=== PATIENT | female | born 1955 | race Caucasian/White ===

== ENCOUNTER 2016-06-21 10:38 | Outpatient (CLI) | payer MEDICAID | END 2016-06-21 10:39 | DX: E11.9 Type 2 diabetes mellitus without complications (principal); I10 Essential (primary) hypertension; E78.5 Hyperlipidemia, unspecified ==

== ENCOUNTER 2016-11-29 08:36 | Outpatient (CLI) | payer MEDICAID ==
--- NOTE | 2016-11-30 03:04 | MRI Report ---
EXAM: MRI LUMBAR SPINE WITHOUT CONTRAST EXAM DATE: 11/29/2016 09:08 AM. CLINICAL HISTORY: Low back pain for 4 months radiating to the right lower extremity. History of surge ry in 1994 for a herniated disk. COMPARISON: Lumbar spine radiographs from 08/11/2016. TECHNIQUE: Multiplanar, multisequence T1-weighted and fluid-sensitive sequences of the lumbar spine f rom T12 to S1 without contrast. Other: None. FINDINGS: Spinal Cord: The conus terminates at L1-L2. No signal abnormality in the visualized spinal cord. Alignment: Mild retrolisthesis is noted at L1-L2 and L5-S1 measuring 23 mm. Grade 1 anterolisthesis is noted at L4-L5 measuring 3 mm, stable. Bone Marrow: Five [id number]-ghw-[id number] lumbar vertebral bodies are confirmed on the radiographs. An osseou s hemangioma is noted in the L2 vertebral body. Mild type I Modic endplate changes are also suggested at L2-L3. No additional areas of abnormal bone marrow edema are seen. Disk Levels/Facets: T12-L1: Unremarkable on sagittal images. L1-L2: A mild disk bulge is noted on sagittal images. There is mild spinal canal stenosis without imp ingement of the conus medullaris. The foramina are patent. L2-L3: There is a mild disk bulge with mild bilateral facet arthropathy. However, there is no spinal canal or foraminal stenosis. L3-L4: A small right foraminal protrusion is noted without spinal canal or foraminal stenosis. There is mild bilateral facet arthropathy. L4-L5: Anterolisthesis is noted at this level with uncovering of the disk. Superimposed facet arthrop athy and ligamentum flavum infolding result in moderate spinal canal stenosis. The foramina are paten t. The lateral recesses are narrowed and there may be impingement of the descending left L5 nerve genesis t. L5-S1: A posterior disk osteophyte complex is present, eccentric in the right paracentral region. The re is moderate right and mild left facet arthropathy. This results in mild right foraminal narrowing and mild spinal canal stenosis. There is narrowing of the right lateral recess but no definite imping ement of the descending right S1 nerve root is seen. Musculature: There is mild to moderate diffuse fatty atrophy of the posterior paraspinal muscles with out intramuscular edema. Other: The visualized pelvic cavity is unremarkable. IMPRESSION: 1. Moderate spinal canal stenosis at L4-L5 due to degenerative anterolisthesis, facet arthropathy, an d ligamentum flavum infolding. There is narrowing in the lateral recesses with possible impingement o f the descending left L5 nerve root. 2. Degenerative disk changes and facet arthropathy result in narrowing of the right lateral recess wi th possible impingement of the descending right S1 nerve root. 3. Suggestion of mild type I Modic endplate changes at L2-L3. 4. Mild multilevel degenerative changes at other lumbar levels but without high-grade spinal canal or foraminal stenosis. Comment: The following findings are so common in adults without low back pain that while we report th eir presence, they must be interpreted with caution and in the context of the clinical situation. (Re columba Sheldon et al, Spine 2001) Prevalence of findings in patients without low back pain: Disk degeneration (any evidence): 92% Disk desiccation/T2 signal loss: 83% Disk height loss: 56% Disk bulge: 64% Disk protrusion: 32% Annular tear/high intensity zone: 38% [facility] Referring Provider Line: [phone] SITE ID: [id number]
== END 2016-11-29 08:37 | disposition home or self-care (01) ==
LOC: DI 08:36
PROVIDERS: ATTEND Orthopaedic Surgery
DX: M51.36 Other intervertebral disc degeneration, lumbar region (principal); M43.16 Spondylolisthesis, lumbar region
CPT/HCPCS: 72148

== ENCOUNTER 2017-02-25 08:00 | Outpatient (CLI) | payer MEDICAID ==
[2017-02-25 19:00] LABS: BASOPHILS # (AUTO) 0.1 10^3/uL (0.0-0.1); BASOPHILS % (AUTO) 0.9 %; EOSINOPHILS # (AUTO) 0.1 10^3/uL (0.0-0.7); EOSINOPHILS % (AUTO) 1.5 %; HCT - HEMATOCRIT 40.6 % (37.0-47.0); HGB - HEMOGLOBIN 13.3 g/dL (12.0-16.0); LYMPHOCYTES # (AUTO) 1.6 10^3/uL (1.5-3.5); LYMPHOCYTES % (AUTO) 23.3 %; MEAN CORPUSCULAR HEMOGLOBIN 31.2 pg (27.0-31.0); MEAN CORPUSCULAR HGB CONC 32.9 g/dL (32.0-36.0); MONOCYTES # (AUTO) 0.9 10^3/uL (0.0-1.0); MONOCYTES % (AUTO) 12.4 %; NEUTROPHILS # (AUTO) 4.3 10^3/uL (1.5-6.6); NEUTROPHILS % (AUTO) 61.9 %; NUCLEATED RED BLOOD CELLS AUTO 0.2 /100WBC; RED BLOOD COUNT 4.27 10^6/uL (4.20-5.40); RED CELL DISTRIBUTION WIDTH 13.8 % (12.0-15.0); UNCORRECTED WHITE BLOOD COUNT 6.9 x10^3/uL; WHITE BLOOD COUNT 6.9 x10^3/uL (4.8-10.8)
[2017-02-25 19:07] LABS: ALBUMIN/GLOBULIN RATIO 1.2 (1.0-2.2); BILIRUBIN,TOTAL 0.7 mg/dL (0.2-1.0); CALCIUM 8.9 mg/dL (8.5-10.3); CREATININE 0.6 mg/dL (0.4-1.0); POTASSIUM 4.3 mmol/L (3.5-5.0); TOTAL PROTEIN 7.1 g/dL (6.7-8.2)
[2017-02-25 19:36] LABS: HEMOGLOBIN A1C 0.73 g/dL
== END 2017-02-25 08:01 | disposition home or self-care (01) ==
LOC: LAB.N 08:00
PROVIDERS: ATTEND Family Medicine
DX: Z01.818 Encounter for other preprocedural examination (principal); E11.9 Type 2 diabetes mellitus without complications; I10 Essential (primary) hypertension
CPT/HCPCS: 36415; 80053; 83036; 85025; 87640

== ENCOUNTER 2017-05-16 09:11 | Outpatient (CLI) | payer MEDICAID ==
[2017-05-16 12:27] LABS: BASOPHILS % (AUTO) 0.7 %; EOSINOPHILS # (AUTO) 0.1 10^3/uL (0.0-0.7); EOSINOPHILS % (AUTO) 1.9 %; HGB - HEMOGLOBIN 12.4 g/dL (12.0-16.0); LYMPHOCYTES # (AUTO) 1.4 10^3/uL (1.5-3.5); LYMPHOCYTES % (AUTO) 26.3 %; MEAN CORPUSCULAR HEMOGLOBIN 31.1 pg (27.0-31.0); MEAN CORPUSCULAR HGB CONC 34.2 g/dL (32.0-36.0); MEAN PLATELET VOLUME 8.3 fL (7.9-10.8); MONOCYTES # (AUTO) 0.7 10^3/uL (0.0-1.0); MONOCYTES % (AUTO) 12.9 %; NEUTROPHILS # (AUTO) 3.2 10^3/uL (1.5-6.6); NEUTROPHILS % (AUTO) 58.2 %; PLT - PLATELET COUNT 251 10^3/uL (130-450); RED BLOOD COUNT 3.98 10^6/uL (4.20-5.40); RED CELL DISTRIBUTION WIDTH 14.2 % (12.0-15.0); WHITE BLOOD COUNT 5.5 x10^3/uL (4.8-10.8)
[2017-05-16 12:38] LABS: CREATININE 0.6 mg/dL (0.4-1.0)
== END 2017-05-16 09:12 | disposition home or self-care (01) ==
LOC: LAB.N 09:11
PROVIDERS: ATTEND Family Medicine
DX: E11.9 Type 2 diabetes mellitus without complications (principal); I10 Essential (primary) hypertension
CPT/HCPCS: 36415; 80048; 85025

== ENCOUNTER 2017-05-31 08:00 | Outpatient (CLI) | payer MEDICAID ==
[2017-05-31 19:17] LABS: CALCIUM 9.2 mg/dL (8.5-10.3); CREATININE 0.5 mg/dL (0.4-1.0)
[2017-05-31 19:21] LABS: HB2 TOTAL 14.9 g/dL; HEMOGLOBIN A1C 0.71 g/dL; HEMOGLOBIN A1C % 6.5 % (4.6-6.2)
== END 2017-05-31 08:01 ==
LOC: LAB.N 08:00
PROVIDERS: ATTEND Family Medicine
DX: E11.9 Type 2 diabetes mellitus without complications (principal)
CPT/HCPCS: 36415; 80048; 83036

== ENCOUNTER 2017-08-25 21:06 | Outpatient (CLI) | payer MEDICAID ==
--- NOTE | 2017-08-26 09:48 | Ultrasound Report ---
EXAM: LEFT LOWER EXTREMITY VENOUS ULTRASOUND EXAM DATE: 08/25/2017 11:09 PM. CLINICAL HISTORY: Left lower extremity pain. History of DVT. COMPARISON: None. TECHNIQUE: Real-time sonographic vascular imaging was performed by the track laying equipment operator through the lower extremity utilizing both color-flow and Doppler spectral analysis. Multiple high school admissions representative static bal ges were saved for review. FINDINGS: Common Femoral Vein (CFV): Normal. CFV-GSV Junction: Normal. Profunda Femoral Vein (PFV): Normal. Femoral Vein (FV) Prox: Normal. Femoral Vein (FV) Mid: Normal. Femoral Vein (FV) Dist: Normal. Popliteal Vein: Normal. Posterior Tibial Veins: Normal. Peroneal Veins: Normal. Contralateral Side CFV: Normal. Other: A fluid collection in the medial popliteal fossa measures 2.4 x 0.9 x 2.4 cm, consistent with Medina's cyst. Additional fluid collection laterally at the level of the knee measures 4.9 x 0.7 x 4.1 cm. IMPRESSION: 1. No DVT in the left lower extremity. 2. Left knee joint effusion. Small Medina cyst. [facility] Referring Provider Line: [phone] SITE ID: [id number]
--- NOTE | 2017-08-26 09:48 | Ultrasound Preliminary Report ---
Exam: US DUPLEX EXT VEINS LEFT IMPRESSION: 1. No DVT in the left lower extremity. 2. Left knee joint effusion. Small Medina cyst. [facility] SITE ID: [id number]
== END 2017-08-25 21:07 | disposition home or self-care (01) ==
LOC: DI 21:06
PROVIDERS: ATTEND Family Medicine
DX: M79.605 Pain in left leg (principal); M25.462 Effusion, left knee; M71.22 Synovial cyst of popliteal space [Baker], left knee; Z86.718 Personal history of other venous thrombosis and embolism

== ENCOUNTER 2017-10-10 09:19 | Outpatient (CLI) | payer MEDICAID ==
[2017-10-10 12:44] LABS: CREATININE 0.5 mg/dL (0.4-1.0)
[2017-10-10 13:00] LABS: HB2 TOTAL 15.4 g/dL; HEMOGLOBIN A1C 0.73 g/dL; HEMOGLOBIN A1C % 6.5 % (4.6-6.2)
== END 2017-10-10 09:20 | disposition home or self-care (01) ==
LOC: LAB.N 09:19
PROVIDERS: ATTEND Family Medicine
DX: E11.9 Type 2 diabetes mellitus without complications (principal)
CPT/HCPCS: 36415; 80048; 83036

== ENCOUNTER 2018-01-13 09:18 | Outpatient (CLI) | payer MEDICAID ==
[2018-01-13 12:49] LABS: ALBUMIN/GLOBULIN RATIO 1.3 (1.0-2.2); ALKALINE PHOSPHATASE 86 IU/L (42-121); ALT ALANINE AMINOTRANSFERASE 30 IU/L (10-60); AST ASPARTATE AMINOTRANSFERASE 28 IU/L (10-42); BUN - BLOOD UREA NITROGEN 25 mg/dL (6-20); CALCIUM 9.2 mg/dL (8.5-10.3); CARBON DIOXIDE - CO2 28 mmol/L (21-32); CHLORIDE 105 mmol/L (101-111); CHOL/HDL RATIO 3.8 (<4.4); CHOLESTEROL 211 mg/dL; CREATININE 0.6 mg/dL (0.4-1.0); GFR - MDRD 101 (>89); GLUCOSE 134 mg/dL (70-100); HDL CHOLESTEROL 56 mg/dL; LDL CHOLESTEROL,CALCULATED 127 mg/dL; LDL/HDL RATIO 2.3 (<4.4); SODIUM 140 mmol/L (135-145); VLDL CHOLESTEROL 28 mg/dL
[2018-01-13 13:07] LABS: HB2 TOTAL 14.9 g/dL; HEMOGLOBIN A1C 0.73 g/dL; HEMOGLOBIN A1C % 6.6 % (4.6-6.2)
== END 2018-01-13 09:19 | disposition home or self-care (01) ==
LOC: LAB.WCP 09:18
PROVIDERS: ATTEND Family Medicine
DX: E11.9 Type 2 diabetes mellitus without complications (principal); E78.5 Hyperlipidemia, unspecified
CPT/HCPCS: 36415; 80053; 80061; 83036; 83721

== ENCOUNTER 2018-04-14 11:28 | Outpatient (CLI) | payer MEDICAID ==
[2018-04-14 19:08] LABS: CALCIUM 9.2 mg/dL (8.5-10.3); CREATININE 0.6 mg/dL (0.4-1.0)
[2018-04-14 20:08] LABS: HB2 TOTAL 15.8 g/dL; HEMOGLOBIN A1C 0.8 g/dL; HEMOGLOBIN A1C % 6.8 % (4.6-6.2)
== END 2018-04-14 23:59 | disposition home or self-care (01) ==
LOC: LAB.N 11:28
PROVIDERS: ATTEND Nurse Practitioner
DX: E11.9 Type 2 diabetes mellitus without complications (principal)
CPT/HCPCS: 36415; 80048; 83036

== ENCOUNTER 2018-04-17 11:08 | Outpatient (CLI) | payer MEDICAID ==
--- NOTE | 2018-04-17 14:19 | XRAY Report ---
Reason: RT HIP PAIN, RT GROIN PAIN Procedure Date: 04/17/2018 Accession Number: [id number] / [id number] Procedure: XR - Hip w/Pelvis 2-3V RT CPT Code: FULL RESULT: EXAM: RIGHT HIP AND PELVIS RADIOGRAPHY EXAM DATE: 04/17/2018 11:51 AM. HISTORY: Right hip pain, right groin pain. COMPARISONS: HIP 2 VIEW RT 02/20/2018 2:12 PM. TECHNIQUE: 1 view of the pelvis and 1 view of the hip. FINDINGS: Bones: Normal. No fracture or bone lesion. Joints: There is bilateral hip joint narrowing, endstage on the right and moderate on the left, similar before. Sacroiliac joints and pubic symphysis are unremarkable. Soft Tissues: Normal. No soft tissue swelling. IMPRESSION: Advanced right hip degenerative changes. [facility]
== END 2018-04-17 11:09 | disposition home or self-care (01) ==
LOC: DI 11:08
PROVIDERS: ATTEND Orthopaedic Surgery
DX: M16.0 Bilateral primary osteoarthritis of hip (principal)

== ENCOUNTER 2018-05-17 08:00 | Outpatient (CLI) | payer MEDICAID ==
[2018-05-17 19:17] LABS: BASOPHILS # (AUTO) 0.1 10^3/uL (0.0-0.1); BASOPHILS % (AUTO) 1.3 %; EOSINOPHILS # (AUTO) 0.1 10^3/uL (0.0-0.7); EOSINOPHILS % (AUTO) 2.2 %; HGB - HEMOGLOBIN 14.6 g/dL (12.0-16.0); LYMPHOCYTES # (AUTO) 1.2 10^3/uL (1.5-3.5); LYMPHOCYTES % (AUTO) 27.9 %; MEAN CORPUSCULAR HEMOGLOBIN 32.3 pg (27.0-31.0); MEAN CORPUSCULAR HGB CONC 32.6 g/dL (32.0-36.0); MEAN CORPUSCULAR VOLUME 99.1 fL (81.0-99.0); MEAN PLATELET VOLUME 9.5 fL (7.9-10.8); MONOCYTES # (AUTO) 0.7 10^3/uL (0.0-1.0); MONOCYTES % (AUTO) 17.2 %; NEUTROPHILS # (AUTO) 2.2 10^3/uL (1.5-6.6); NEUTROPHILS % (AUTO) 51.4 %; PLT - PLATELET COUNT 174 10^3/uL (130-450); RED BLOOD COUNT 4.51 10^6/uL (4.20-5.40); WHITE BLOOD COUNT 4.3 x10^3/uL (4.8-10.8)
[2018-05-17 19:48] LABS: THYROID STIMULATING HORMONE 1.19 uIU/mL (0.34-5.60)
== END 2018-05-17 23:59 | disposition home or self-care (01) ==
LOC: LAB.N 08:00
PROVIDERS: ATTEND Nurse Practitioner
DX: E55.9 Vitamin D deficiency, unspecified (principal); R53.83 Other fatigue
CPT/HCPCS: 36415; 82306; 82607; 82746; 84443; 85025

== ENCOUNTER 2018-06-06 10:22 | Outpatient (CLI) | payer MEDICAID ==
--- NOTE | 2018-06-06 16:50 | Mammography Report ---
Reason: LUMP OR MASS IN BREAST Procedure Date: 06/06/2018 Accession Number: [id number] / [id number] Procedure: CHAITANYA - Diagnostic Dig Bilat CPT Code: FULL RESULT: EXAM: Diagnostic Dig Bilat DATE: 06/06/2018 11:29 AM CLINICAL HISTORY: Palpable breast mass and tenderness in the left breast. Diagnostic examination. TECHNIQUE: Bilateral CC and MLO views as well as left spot CC, left ML views and left spot MLO views are obtained. Focused left breast ultrasound was performed. COMPARISON: 05/14/2014 through 02/13/2009. FINDINGS: The breasts demonstrate heterogeneously dense fibroglandular parenchyma bilaterally. There is a 3 cm hyperdense mass with irregular borders in the left breast centrally, 6.3 cm from the nipple on the MLO projection and 4.4 cm from the nipple on the CC projection. Focused left breast ultrasound reveals an irregular hypoechoic 3.5 x 3 x 3.2 cm mass at the 6:00 position 4 cm from the nipple with vascularity. Additionally, ultrasound of the left axillary region demonstrates a 5.7 x 4.1 x 5.0 cm mass felt to be lymphadenopathy. IMPRESSION: Findings highly suggestive of malignancy. RECOMMENDATION: Biopsy of the left breast mass as well as left axillary mass by ultrasound guidance. BIRADS CATEGORY 5 STANDARD QUALIFYING STATEMENTS: 1. This examination was not reviewed with the aid of Computer-Aided Detection (CAD). 2. A negative or benign imaging report should not delay biopsy if clinically suspicious findings are present. Consider surgical consultation if warrented. More than 5% of cancers are not identified by imaging. 3. Dense breasts may obscure an underlying neoplasm. 4. This examination was reviewed with the aid of 3D imaging (tomography). The findings were relayed over the phone to the office of Bisi Urban at 4:45 PM on 06/06/2018; I spoke with her SANDEEP Latham.
== END 2018-06-06 10:23 | disposition home or self-care (01) ==
LOC: DI 10:22
PROVIDERS: ATTEND Nurse Practitioner
DX: R92.8 Other abnormal and inconclusive findings on diagnostic imaging of breast (principal)
CPT/HCPCS: 76642; 77066

== ENCOUNTER 2018-06-16 12:50 | Outpatient (CLI) | payer MEDICAID ==
[2018-06-16] MEDS ORDERED: BUFFERED LIDOCAINE 10 ML SYRINGE ONE (13:20)
[2018-06-16] MEDS ORDERED: BUPIVACAINE 0.5%-EPI 1:200000 PF 10 ML VIAL ONE (13:20)
--- NOTE | 2018-06-16 16:24 | Mammography Report ---
Reason: ABN MAMMO - LEFT BREAST MASS Procedure Date: 06/16/2018 Accession Number: [id number] / [id number] Procedure: CHAITANYA - Diagnostic Dig LT CPT Code: FULL RESULT: PROCEDURE: Ultrasound-guided needle biopsy left breast mass. CLINICAL DATA: Targeted mass measuring 3 cm with irregular margins in the 6 o'clock axis of the left breast. Mass in the left axilla. Informed consent was obtained. Using standard aseptic technique, both 1% buffered lidocaine and Sensorcaine were injected into the left breast for local anesthesia. A small jael was made in the skin with a #11 blade. A 12-gauge WHATT vacuum-assisted device was used to obtain 3 specimens of left breast mass. The same was repeated for the left axillary mass. A specialized biopsy marker clip was placed into the biopsy cavity under ultrasound guidance in both locations. The patient was taken to separate mammography machine and a two-view digital mammography was performed to verify the clip placement and any complications. The mammography showed concordant clip positions. The wound was dressed and ice applied. The patient was observed for approximately 15 minutes, then was discharged from diagnostic imaging Department in good condition following instructions on wound care and obtaining biopsy results. The patient is scheduled to receive the biopsy results from the referring physician. The tissue was sent for histologic analysis. IMPRESSION: Ultrasound-guided biopsy of the left breast and axilla. AN ADDENDUM WILL BE MADE TO THIS REPORT WHEN PATHOLOGY IS REVIEWED TO ESTABLISH CONCORDANCE.
[2018-06-16] MEDS ORDERED: BUPIVACAINE 0.5%-EPI 1:200000 PF 10 ML VIAL SUBQ ONE (16:54)
[2018-06-16] MEDS ORDERED: BUFFERED LIDOCAINE 10 ML SYRINGE IU ONE (16:54)
== END 2018-06-16 12:51 | disposition home or self-care (01) ==
LOC: DI 12:50
PROVIDERS: ATTEND Nurse Practitioner
DX: C50.812 Malignant neoplasm of overlapping sites of left female breast (principal); C77.3 Secondary and unspecified malignant neoplasm of axilla and upper limb lymph nodes; Z17.0 Estrogen receptor positive status [ER+]
CPT/HCPCS: 19083; 38505

== ENCOUNTER 2018-06-27 10:01 | Outpatient (CLI) | payer MEDICAID ==
--- NOTE | 2018-06-27 12:08 | XRAY Report ---
Reason: BREAST CANCER Procedure Date: 06/27/2018 Accession Number: [id number] / [id number] Procedure: XR - Chest 2 View X-Ray CPT Code: 03549 FULL RESULT: EXAM: CHEST RADIOGRAPHY EXAM DATE: 06/27/2018 10:27 AM. CLINICAL HISTORY: Breast cancer. COMPARISON: None. TECHNIQUE: 2 views. FINDINGS: Lungs/Pleura: No focal opacities evident. No pleural effusion. No pneumothorax. Normal volumes. Mediastinum: Heart and mediastinal contours are unremarkable. Other: Mild multilevel degenerative marginal osteophyte in the thoracic spine. IMPRESSION: Normal 2-view chest radiography. [facility]
== END 2018-06-27 10:02 | disposition home or self-care (01) ==
LOC: DI 10:01
PROVIDERS: ATTEND Internal Medicine Gastroenterology
DX: C50.919 Malignant neoplasm of unspecified site of unspecified female breast (principal)
CPT/HCPCS: 71046

== ENCOUNTER 2018-07-03 05:59 | Day surgery (SDC) | payer MEDICAID ==
[2018-07-03] MEDS ORDERED: LACTATED RINGERS 1,000 ML IV ONE (06:30)
--- NOTE | 2018-07-03 07:17 | ANESTHESIA ---
Pre-Anesthesia VS, & Labs - Diagnosis Breast Cancer - Procedure port placement Right side Vital Signs: Temp Pulse Resp BP Pulse Ox 36.4 C L 64 16 136/85 H 97 07/03/18 06:35 07/03/18 06:35 07/03/18 06:35 07/03/18 06:35 07/03/18 06:35 Height 5 ft 6 in Weight (kg) 122.1 kg Body Mass Index 43.6 - NPO >8 hours - Is Patient ?: No - Lab Results Current Lab Results: Laboratory Tests 07/03/18 07:01: POC Whole Bld Glucose 145 H Home Medications and Allergies Home Medications: Ambulatory Orders Aspirin [Aspirin EC] 81 mg PO DAILY 06/29/18 Active Medications Cefazolin Sodium 3 gm/ Sodium (Chloride) 100 mls @ 200 mls/hr IV ONCE ONE Stop: 07/03/18 08:[address] [Voltaren] 75 mg PO BID 06/27/18 Gabapentin 300 mg PO QPM 06/27/18 Losartan [Cozaar] 50 mg PO DAILY 06/27/18 Metoprolol Tartrate 50 mg PO BID 06/27/18 Sertraline HCl 100 mg PO DAILY 06/27/18 Simvastatin 20 mg PO QPM 06/27/18 clonazePAM [Clonazepam] 1 tab ORAL BID PRN 06/27/18 metFORMIN [Glucophage] 500 mg PO DAILYWM 06/27/18 Aspirin [Aspirin EC] 81 mg PO DAILY 06/29/18 Allergies/Adverse Reactions: Allergies Allergy/AdvReac Type Severity Reaction Status Date / Time hydroxyzine Allergy Itching Verified 06/29/18 08:58 lorazepam Allergy Emesis Verified 06/27/18 08:52 meclizine Allergy Emesis Verified 06/27/18 08:52 pamoate Allergy Itching Uncoded 06/29/18 08:58 Anes History & Medical History - Anesthetic History Anesthesia Complications: reports: No previous complications - Medical History Cardiovascular: reports: Hypertension, High cholesterol, Murmur Pulmonary: reports: Sleep apnea (Re-test showed improvment of KEM, does not use cpap) Gastrointestinal: reports: None, Other (Morbidly obese) Urinary: reports: None Neuro: reports: None Musculoskeletal: reports: Osteoarthritis Endocrine/Autoimmune: reports: Type 2 diabetes Blood Disorders: reports: None Skin: reports: None, Other (Breast cancer) Smoking Status: Never smoker Psychosocial: reports: No issues indicated, Anxiety - Surgical History Eyes Ears Nose Throat (EENT): Tonsil/Adenoidectomy Gynecologic: Dilation and currettage, Tubal ligation Orthopedic: Spine surgery Results - EKG Results EKG Comparison: Reviewed EKG - Other Other Results/Comments: Negative stress test on 03/10/17 Exam General: Alert, Oriented x3, Cooperative, No acute distress Dental: WNL Mallampati classification: IV Thyromental Distance: 4-6 cm Respiratory: Lungs clear, Normal breath sounds, No respiratory distress, No accessory muscle use Cardiovascular: Regular rate, Normal S1, Normal S2, No murmurs Mental/Cognitive Status: Alert/Oriented X3, Normal for patient Plan Anesthesia Type: MAC Consent for Procedure(s) Verified and Reviewed: Yes Code Status: Attempt Resuscitation ASA classification: 3-Severe systemic disease Is this case an emergency?: No
[2018-07-03] MEDS ORDERED: ceFAZolin 1 GM VIAL IR ONE (07:47)
[2018-07-03] MEDS ORDERED: LIDOCAINE 1% 50 ML MDV SUBQ ONE ×2 (07:48)
[2018-07-03] MEDS ORDERED: ceFAZolin 3 GM in SODIUM CHLORIDE 0.9% 100ML 100 ML IV ONE (08:00)
[2018-07-03] MEDS ORDERED: MIDAZOLAM 2 MG/2 ML VIAL IVP ONE (08:03)
[2018-07-03] MEDS ORDERED: PROPOFOL 200 MG/20 ML VIAL IVP ONE (08:03)
[2018-07-03] MEDS ORDERED: fentaNYL 100 MCG/2 ML VIAL IVP ONE (08:03)
--- NOTE | 2018-07-03 09:03 | XRAY Report ---
Reason: PLACEMENT OF PORTACATH Procedure Date: 07/03/2018 Accession Number: [id number] / [id number] Procedure: FL - OR C-Arm Procedure CPT Code: FULL RESULT: EXAM: FLUOROSCOPIC GUIDANCE EXAM DATE: 07/03/2018 08:25 AM. CLINICAL HISTORY: Placement of Port-A-Cath. COMPARISON: None. FINDINGS: No findings are made as no images are submitted for review. IMPRESSION: Fluoroscopic guidance provided for central venous port placement. Total fluoroscopy time: 0.05 minutes. Number of images: No images. [facility]
[2018-07-03] MEDS ORDERED: oxyCODONE 5 MG TABLET PO PRN (09:04)
[2018-07-03] MEDS ORDERED: ONDANSETRON 4 MG/2 ML VIAL IVP PRN (09:04)
--- NOTE | 2018-07-03 09:50 | XRAY Report ---
Reason: s/p port placement Procedure Date: 07/03/2018 Accession Number: [id number] / [id number] Procedure: XR - Chest 1 View X-Ray CPT Code: 82064 FULL RESULT: EXAM: CHEST RADIOGRAPHY EXAM DATE: 07/03/2018 09:28 AM. CLINICAL HISTORY: Status post port placement. COMPARISON: CHEST 2 VIEW 06/27/2018 10:11 AM. TECHNIQUE: 1 view. FINDINGS: Lungs/Pleura: No focal opacities evident. No pleural effusion. No pneumothorax. Mediastinum: Within exam limitations, the cardiomediastinal contour is normal. Other: The central venous port, right subclavian approach terminates with its tip in the lower SVC. The proximal catheter takes an acute turn without definite evidence of pinching, correlate to appropriate flushing and aspiration. IMPRESSION: Port placement. [facility]
[2018-07-03 10:03] VITALS: BP 176/98
--- NOTE | 2018-07-03 12:47 | PROCEDURE REPORT ---
DATE OF SERVICE: 07/03/2018 Physician: Dani Frye MD PREOPERATIVE DIAGNOSIS: Breast cancer. POSTOPERATIVE DIAGNOSIS: Breast cancer. PROCEDURE PERFORMED: Placement of PowerPort. ANESTHESIA: Local plus monitored anesthesia care by Shala Wasserman CRNA. SURGEON: Dani Frye MD. ESTIMATED BLOOD LOSS: 25 mL. COMPLICATIONS: None. FINDINGS: Venous access was obtained via the right subclavian vein. Catheter tip position was located in the superior vena cava. [place] location was in the right infraclavicular fossa. INDICATIONS FOR PROCEDURE: Patient is a 63-year-old woman with recent diagnosis of locally advanced breast cancer. She was advised to undergo neoadjuvant chemotherapy, and was advised to undergo placement of a PowerPort to facilitate same. TECHNIQUE: After informed consent, the patient was taken to the operating room where she was sedated and monitored. Preoperative preparation included application of sequential calf compression boots and administration of 3 gram cefazolin intravenously within an hour of the incision. Her neck and anterior chest wall were prepared with ChloraPrep solution and draped in the usual sterile fashion. Patient was placed in steep Trendelenburg position; 1% lidocaine plain was used for local infiltration anesthesia, a total of 15 mL of the mixture was used. Using a needle and syringe and an infraclavicular approach, the right subclavian vein was accessed percutaneously. After several attempts, a guidewire was passed into the central venous circulation. Guidewire position was confirmed with fluoroscopy. The tract was dilated, and an 8-Arabic lumen Silastic catheter was then placed over the wire, with catheter tip position was confirmed with fluoroscopy in the superior vena cava. The catheter exit site was enlarged by extending an incision medially for a distance of 3 cm. Hemostasis achieved with electrocautery. A subcutaneous pocket was created sufficient size to allow placement of the reservoir, which had been soaked in the antibiotic solution containing 1 gram of Ancef per liter, and flushed with sterile saline. After the pocket had been created and hemostasis ensured, the wound was irrigated with antibiotic solution. The catheter was trimmed to the appropriate length and attached to the reservoir hub with the locking device securing the catheter to the hub. The reservoir was placed in the pocket. Hemostasis was again ensured. The wound was irrigated with antibiotic solution. Wound closure was accomplished in layers using continuous 3-0 Vicryl for subcutaneous tissues and 4-0 Monocryl subcuticular skin closure, followed by Dermabond. [place] location was marked with indelible ink, and with a Ayala needle and the syringe with heparinized saline, the reservoir was accessed and flushed. The procedure was then terminated. Patient was transferred out of the operating room in satisfactory condition. Sponge and needle counts were correct x2. No drains were used. Followup portable upright chest x-ray is pending, to confirm catheter position. TD: 07/03/2018 09:20 DHRUV
== END 2018-07-03 06:00 | disposition home or self-care (01) ==
LOC: SDS 05:59
PROVIDERS: ATTEND Internal Medicine Gastroenterology
PROC: 05H533Z Insertion of Infusion Device into Right Subclavian Vein, Percutaneous Approach (ICD-10-PCS; 2018-07-03)
PROC: 0JH63WZ Insertion of Totally Implantable Vascular Access Device into Chest Subcutaneous Tissue and Fascia, Percutaneous Approach (ICD-10-PCS; principal; 2018-07-03 07:30)
DX: C50.912 Malignant neoplasm of unspecified site of left female breast (principal); E11.40 Type 2 diabetes mellitus with diabetic neuropathy, unspecified; I10 Essential (primary) hypertension; G47.33 Obstructive sleep apnea (adult) (pediatric); E78.2 Mixed hyperlipidemia; E66.01 Morbid (severe) obesity due to excess calories; Z68.42 Body mass index [BMI] 45.0-49.9, adult
CPT/HCPCS: 36561; A9270; C1788; J7120; 71045

== ENCOUNTER 2018-07-07 09:09 | Outpatient (CLI) | payer MEDICAID ==
[2018-07-07 09:24] LABS: ALBUMIN 3.8 g/dL (3.2-5.5); BILIRUBIN,TOTAL 1.2 mg/dL (0.2-1.0); CALCIUM 9.4 mg/dL (8.5-10.3); CREATININE 0.7 mg/dL (0.4-1.0); TOTAL PROTEIN 7.7 g/dL (6.7-8.2)
[2018-07-07] MEDS ORDERED: IOPAMIDOL-300 50 ML VIAL ONE (09:44)
[2018-07-07] MEDS ORDERED: IOPAMIDOL-300 100 ML VIAL ONE (09:44)
[2018-07-07] MEDS ORDERED: IOPAMIDOL-300 100 ML VIAL IVP ONE (11:58)
[2018-07-07] MEDS ORDERED: IOPAMIDOL-300 50 ML VIAL PO ONE (11:58)
[2018-07-07] MEDS ORDERED: IOVERSOL 320 50 ML VIAL PO ONE (11:58)
--- NOTE | 2018-07-07 17:04 | Nuclear Medicine Report ---
Reason: L BREAST CANCER Procedure Date: 07/07/2018 Accession Number: [id number] / [id number] Procedure: NM - Bone Whole Body CPT Code: FULL RESULT: EXAM: BONE SCAN EXAM DATE: 07/07/2018 02:26 PM. CLINICAL HISTORY: L BREAST CANCER. COMPARISON: ABDOMEN/PELVIS W07/07/2018 10:45 AM CHEST W07/07/2018 10:45 AM. TECHNIQUE: Following the intravenous administration of 32.2 mCi of technetium 99m MDP and an appropriate delay, a whole-body scan was performed in anterior and posterior projections. Site-specific spot views of the region of interest were obtained in various projections. FINDINGS: Normal renal radiotracer uptake and bladder activity. Normal soft tissue activity. Overall normal osseous uptake. Probable degenerative uptake at the, clavicular, sternoclavicular joints, right hip, bilateral knees, bilateral feet/ankles. Probable multilevel degenerative uptake in the thoracic and lumbar spine, most conspicuous at approximately T8. There is mild focal uptake at the distal right eighth rib, possibly posttraumatic. IMPRESSION: 1. No convincing scintigraphic evidence of osseous metastasis. 2. Multifocal probable degenerative uptake as noted above. [facility]
--- NOTE | 2018-07-11 10:10 | CT Report ---
Reason: L BREAST CANCER Procedure Date: 07/07/2018 Accession Number: [id number] / [id number] Procedure: CT - CHEST W CPT Code: FULL RESULT: EXAM: CHEST W DATE: 07/07/2018 11:56 AM CLINICAL HISTORY: L BREAST CANCER COMPARISON: None. TECHNIQUE: Routine helical CT imaging was performed through the chest. IV contrast: 100 mL of Isovue 100 contrast Reconstructions: Coronal and sagittal. In accordance with CT protocol optimization, one or more of the following dose reduction techniques were utilized for this exam: automated exposure control, adjustment of mA and/or KV based on patient size, or use of iterative reconstructive technique. FINDINGS: Lungs/Pleura: No nodules, bronchial thickening, consolidation, or edema. Pulmonary vasculature is normal. No pericardial or pleural effusion. No pneumothorax. Mediastinum: There is a pathologically enlarged left periaortic mediastinal lymph node measuring 3 x 2.5 x 1.5 cm. No additional mediastinal adenopathy. There is atherosclerotic ectasia of the descending aorta and aortic arch. Heart is normal in size. Bones: Multilevel degenerative disc changes are noted throughout the thoracic spine. Mild sclerosis near the superior endplate of the T2 vertebral body is favored to be degenerative. Otherwise no definite blastic or lytic lesions of bone. Visualized Abdomen: Dictated separately Other: There is a 3 cm mass in the inferior medial left breast 1.5 cm from the nipple with associated biopsy clip representing biopsy-proven malignancy. There is a 5 cm level 1 axillary lymph node representing biopsy-proven metastatic selam involvement. There are at least four abnormal morphology lymph nodes in level 1. There is a soft tissue mass in the medial parasternal left breast at approximately 8:00, 11 cm from the nipple. Mass measures 17 x 28 x 37 mm (AP x SI x ML). Mass abuts the anterior pectoralis fascia without a definite fat plane. Mass is from index malignancy by 6 cm. IMPRESSION: 1. Biopsy-proven 3 cm left breast mass with biopsy-proven metastatic level 1 lymphadenopathy as described. 2. 37 mm mass in the 8:00 parasternal left breast, by 6 cm from the index malignancy, suspicious for multifocal/multicentric disease. Recommend targeted ultrasound and biopsy. 3. Single pathologically enlarged left periaortic mediastinal lymph node. 4. No appreciable pulmonary parenchymal or osseous metastatic disease. [facility]
--- NOTE | 2018-07-11 10:20 | CT Report ---
Reason: L BREAST CANCER Procedure Date: 07/07/2018 Accession Number: [id number] / [id number] Procedure: CT - Abdomen/Pelvis W CPT Code: FULL RESULT: EXAM: Abdomen/Pelvis W DATE: 07/07/2018 11:56 AM CLINICAL HISTORY: L BREAST CANCER COMPARISON: None. TECHNIQUE: Routine helical CT imaging was performed through the abdomen and pelvis. IV contrast: 100 cc of Isovue-300 contrast. Enteric contrast: Yes Reconstructions: Coronal and sagittal. In accordance with CT protocol optimization, one or more of the following dose reduction techniques were utilized for this exam: automated exposure control, adjustment of mA and/or KV based on patient size, or use of iterative reconstructive technique. FINDINGS: Lung Bases: Dictated separately. Liver: Diffusely decreased in density consistent with steatosis. No focal hepatic lesion identified. Gallbladder/Bile Ducts: Multiple small gallstones but no pericholecystic fluid or gallbladder wall thickening. No appreciable biliary ductal dilatation. Spleen: Normal. Pancreas: Normal. Adrenal Glands: Normal. Kidneys: 1 cm rim calcified aneurysm of the right renal artery. No masses or hydronephrosis. Peritoneal Cavity/Bowel: Normal. No free fluid, free air or adenopathy. No masses or acute inflammatory process. The appendix is well visualized and normal. Pelvic Organs: Normal. The bladder and visualized pelvic organs are within normal limits. Vasculature: No aneurysms or other significant abnormality. Bones: Multilevel degenerative disc changes. Degenerative sclerosis of both sides of the SI joint and degenerative hip arthrosis. No appreciable lytic or blastic lesions of bone. Other: None. IMPRESSION: 1. No evidence of a abdominal/pelvic metastases. 2. Cholelithiasis without CT evidence of cholecystitis. 3. Mild hepatic steatosis. 4. 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 [facility]
== END 2018-07-07 09:10 | disposition home or self-care (01) ==
LOC: DI 09:09
PROVIDERS: ATTEND Internal Medicine Hematology & Oncology
DX: C50.912 Malignant neoplasm of unspecified site of left female breast (principal); C77.3 Secondary and unspecified malignant neoplasm of axilla and upper limb lymph nodes; I10 Essential (primary) hypertension; E11.40 Type 2 diabetes mellitus with diabetic neuropathy, unspecified
CPT/HCPCS: 36415; 71260; 74177; 78306; 80053; Q9967

== ENCOUNTER 2018-07-09 13:37 | Outpatient (CLI) | payer MEDICAID | END 2018-07-09 13:38 | disposition home or self-care (01) | LOC: DI 13:37 | PROVIDERS: ATTEND Internal Medicine Gastroenterology | DX: C50.912 Malignant neoplasm of unspecified site of left female breast (principal); I10 Essential (primary) hypertension; E11.40 Type 2 diabetes mellitus with diabetic neuropathy, unspecified | CPT/HCPCS: 93306 ==

== ENCOUNTER 2018-07-12 08:30 | Outpatient (CLI) | payer MEDICAID ==
[~2018-07-12 08:30] MED LIST: IOTHALAMATE MEGLUMINE 50 ML VIAL ONE
--- NOTE | 2018-07-12 14:27 | XRAY Report ---
Reason: NO ACCESS THROUGH NEW PORT Procedure Date: 07/12/2018 Accession Number: [id number] / [id number] Procedure: FL - Fluoro Independent Procedure CPT Code: FULL RESULT: EXAM: FLUOROSCOPIC GUIDANCE EXAM DATE: 07/12/2018 09:38 AM. CLINICAL HISTORY: No access through new port. COMPARISON: CHEST 1 VIEW 07/03/2018 9:14 AM. FINDINGS: Total of 5 cc of Conray 60 were used for port check through existing access needle. Catheter is patent only to high pressure antegrade exam with free flow of contrast evident in the SVC. No extravasation of contrast occurred. Note: The provided fluoroscopic spot images do not demonstrate contrast within the catheter. Findings were however confirmed by direct/real-time observation by the radiologist. IMPRESSION: Fluoroscopic guidance provided for right subclavian port check. Total fluoroscopy time: 2 minutes. Number of images: 24. [facility]
== END 2018-07-12 08:31 | disposition home or self-care (01) ==
LOC: DI 08:30
PROVIDERS: ATTEND Internal Medicine Hematology & Oncology
DX: Z45.2 Encounter for adjustment and management of vascular access device (principal); C50.912 Malignant neoplasm of unspecified site of left female breast
CPT/HCPCS: 76000; Q9961

== ENCOUNTER 2018-07-16 07:54 | Emergency (ER) | payer MEDICAID ==
--- NOTE | 2018-07-16 09:13 | ED Physician Documentation ---
PD HPI NVD - Stated complaint Stated Complaint: UNABLE TO KEEP FLUID DOWN - Chief complaint Chief Complaint: Abd Pain - History obtained from History obtained from: Patient - History of Present Illness Timing - onset: How many days ago Timing - duration: Days (4) Timing - details: Gradual onset (She had first round of chemotherapy 6 days ago for her breast cancer with lymphatic spread. She states she had a body scan that showed no involvement in the abdominal organs nor lung. This was recent. She had onset of general crampy abdominal pain associated with nausea vomiting and some diarrhea starting 4 days ago. She is continued with this despite oral ondansetron and prochlorperazine. She is feeling generally weak and lightheaded. She denies any fever or chills. She denies any blood in her vomit or diarrhea.), Still present Associated symptoms: Abdominal pain (diffuse crampy), Loss of appetite. No: Fever, Near syncope / syncope Contributing factors: Other (chemotherapy 6 days ago). No: Sick contact, Recent antibiotics Similar symptoms before: Has not had sx before Recently seen: Clinic Review of Systems Constitutional: denies: Fever, Chills Nose: denies: Rhinorrhea / runny nose, Congestion Throat: denies: Oral lesions / sores (but has throat/mouth pain.), Sore throat Respiratory: denies: Cough GI: reports: Abdominal Pain, Nausea, Vomiting, Diarrhea. denies: Abdominal Swelling, Constipation, Bloody / black stool : denies: Dysuria, Frequency Skin: denies: Rash Neurologic: reports: Generalized weakness. 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 - Present Medications Home Medications: Ambulatory Orders Medication Instructions Recorded Confirmed Diclofenac Sodium Dr [Voltaren] 75 mg PO BID 06/27/18 07/11/18 Gabapentin 300 mg PO QPM 06/27/18 07/11/18 Losartan [Cozaar] 50 mg PO DAILY 06/27/18 07/11/18 Metoprolol Tartrate 50 mg PO BID 06/27/18 07/11/18 Sertraline HCl 100 mg PO DAILY 06/27/18 07/11/18 Simvastatin 20 mg PO QPM 06/27/18 07/11/18 clonazePAM [Clonazepam] 1 tab ORAL BID PRN 06/27/18 07/11/18 metFORMIN [Glucophage] 500 mg PO DAILYWM 06/27/18 07/11/18 Aspirin [Aspirin EC] 81 mg PO DAILY 06/29/18 07/11/18 Dexamethasone [Decadron] 4 mg PO BIDWM 07/11/18 07/11/18 Diphenoxylate/Atropine [Lomotil] 1 each PO QID PRN #12 tablet 07/16/18 Promethazine Supp [Phenergan Supp] 25 mg CA Q6H PRN #10 supp 07/16/18 - Allergies Allergies/Adverse Reactions: Allergies Allergy/AdvReac Type Severity Reaction Status Date / Time hydroxyzine Allergy Itching Verified 07/16/18 08:34 lorazepam Allergy Emesis Verified 07/16/18 08:34 meclizine Allergy Emesis Verified 07/16/18 08:34 - Social History Smoking Status: Never smoker PD ED PE NORMAL - Vitals Vital signs reviewed: Yes - General General: Alert and oriented X 3, Well developed/nourished - HEENT HEENT: Ears normal, Pharynx benign. No: Moist mucous membranes - Neck Neck: Supple, no meningeal sign, No adenopathy - Cardiac Cardiac: RRR, No murmur - Respiratory Respiratory: Clear bilaterally - Abdomen Abdomen: Soft, Non distended, Other (general tenderness without focal. No percussion nor rebound tenderness. Bowel sounds decreased. ) - Derm Derm: Normal color, Warm and dry - Extremities Extremities: No deformity, No tenderness to palpate, Normal ROM s pain, No edema, No calf tenderness / cord - Neuro Neuro: Alert and oriented X 3, No motor deficit, Normal speech Results - Vitals Vitals: Vital Signs - 24 hr 07/16/18 07/16/18 07/16/18 08:16 10:34 13:40 Temperature 93 C H Heart Rate 94 82 85 Respiratory 16 14 20 Rate Blood Pressure 159/63 H 141/82 H 155/68 H O2 Saturation 94 90 L 96 07/16/18 07/16/18 13:47 15:16 Temperature Heart Rate 83 Respiratory 20 Rate Blood Pressure 116/61 O2 Saturation 94 94 Oxygen O2 Source Room air - Labs Labs: Laboratory Tests 07/16/18 07/16/18 07/16/18 09:50 09:50 09:50 WBC 3.2 L RBC 4.49 Hgb 14.5 Hct 43.1 MCV 96.1 MCH 32.3 H MCHC 33.6 RDW 13.2 Plt Count 130 MPV 9.6 Neut # (Auto) 2.2 Lymph # (Auto) 0.6 L [place] # (Auto) 0.3 Eos # (Auto) 0.0 Baso # (Auto) 0.0 Absolute Nucleated RBC 0.00 Nucleated RBC % 0.0 Manual Slide Review Indicated RBC Morph Micro Appear 1+ ANISOCYTOSIS Sodium 137 Potassium 3.8 Chloride 97 L Carbon Dioxide 25 Anion Gap 15.0 H BUN 19 Creatinine 0.6 Estimated GFR (MDRD) 101 Glucose 152 H Lactic Acid 1.4 Calcium 9.0 Magnesium 1.7 Total Bilirubin 1.8 H AST 67 H ALT 91 H Alkaline Phosphatase 78 Total Protein 7.7 Albumin 4.0 Globulin 3.7 Albumin/Globulin Ratio 1.1 Lipase 26 Urine Color Urine Clarity Urine pH Ur Specific [place] Urine Protein Urine Glucose (UA) Urine Ketones Urine Occult Blood Urine Nitrite Urine Bilirubin Urine Urobilinogen Ur Leukocyte Esterase Urine RBC Urine WBC Ur Squamous Epith Cells Urine Bacteria Ur Microscopic Review Urine Culture Comments 07/16/18 11:40 WBC RBC Hgb Hct MCV MCH MCHC RDW Plt Count MPV Neut # (Auto) Lymph # (Auto) [place] # (Auto) Eos # (Auto) Baso # (Auto) Absolute Nucleated RBC Nucleated RBC % Manual Slide Review RBC Morph Micro Appear Sodium Potassium Chloride Carbon Dioxide Anion Gap BUN Creatinine Estimated GFR (MDRD) Glucose Lactic Acid Calcium Magnesium Total Bilirubin AST ALT Alkaline Phosphatase Total Protein Albumin Globulin Albumin/Globulin Ratio Lipase Urine Color DARK YELLOW Urine Clarity CLEAR Urine pH 5.5 Ur Specific [place] 1.025 Urine Protein TRACE Urine Glucose (UA) NEGATIVE Urine Ketones 15 H Urine Occult Blood TRACE-INTA Urine Nitrite NEGATIVE Urine Bilirubin NEGATIVE Urine Urobilinogen 0.2 (NORMAL) Ur Leukocyte Esterase TRACE H Urine RBC 0-5 Urine WBC 0-3 Ur Squamous Epith Cells MOD Squamous H Urine Bacteria Few Ur Microscopic Review INDICATED Urine Culture Comments NOT INDICATED PD MEDICAL DECISION MAKING - ED course Complexity details: re-evaluated patient, considered differential (The symptoms are reasonable this secondary to the chemotherapy with nausea abdominal cramps and diarrhea. She tried home medications. She is given IV fluids as well as antiemetics and medicine for pains and cramps here. She is feeling generally better with hydration. However she still has nausea and is given repeat doses of medications as well as some for cramps. At this point she feels no appetite really and a little nausea with taking sips of water but no vomiting per se. I will reassess in a little bit to see if she is able to head home.), d/w patient Departure - Departure Disposition: Home, Self Care Clinical Impression: Nausea vomiting and diarrhea, Status post chemotherapy, Dehydration Condition: Stable Record reviewed to determine appropriate education?: Yes Follow-Up: Bisi Urban DNP [Primary Care Provider] - Filemon Lopez MD [Provider Admit Priv/Credential] - Prescriptions: Diphenoxylate/Atropine [Lomotil] 1 each PO QID PRN #12 tablet PRN Reason: Diarrhea Promethazine Supp [Phenergan Supp] 25 mg CA Q6H PRN #10 supp PRN Reason: Nausea / Vomiting Comments: Continue your usual medicines, in particular the 2 pain nausea and anti- inflammatories. He can hold off on cholesterol medicine and even short-term the blood pressure medicine to minimize the amount of the need to take over the next several days or week. Add Lomotil if needed for diarrhea. Continue nausea medicines and add promethazine suppository if not keeping oral medicine down. Return if worsening again. Discharge Date/Time: 07/16/18 15:57
[2018-07-16] MEDS ORDERED: SODIUM CHLORIDE 0.9% 1,000 ML IV ONE ×3 (09:28→13:17)
[2018-07-16] MEDS ORDERED: KETOROLAC 15 MG/ML VIAL IVP STA (09:28)
[2018-07-16] MEDS ORDERED: ONDANSETRON 4 MG/2 ML VIAL IVP STA (09:28)
[2018-07-16] MEDS ORDERED: MORPHINE 10 MG/ML VIAL IVP STA ×2 (09:29→13:18)
[2018-07-16] MEDS ORDERED: DEXAMETHASONE 10 MG/ML VIAL IVP STA (09:29)
[2018-07-16 10:06] LABS: BASOPHILS % (AUTO) 1.4 %; EOSINOPHILS % (AUTO) 0.8 %; HGB - HEMOGLOBIN 14.5 g/dL (12.0-16.0); LYMPHOCYTES # (AUTO) 0.6 10^3/uL (1.5-3.5); LYMPHOCYTES % (AUTO) 19.2 %; MEAN CORPUSCULAR HEMOGLOBIN 32.3 pg (27.0-31.0); MEAN CORPUSCULAR HGB CONC 33.6 g/dL (32.0-36.0); MEAN CORPUSCULAR VOLUME 96.1 fL (81.0-99.0); MEAN PLATELET VOLUME 9.6 fL (7.9-10.8); MONOCYTES # (AUTO) 0.3 10^3/uL (0.0-1.0); MONOCYTES % (AUTO) 9.3 %; NEUTROPHILS # (AUTO) 2.2 10^3/uL (1.5-6.6); NEUTROPHILS % (AUTO) 69.3 %; PLT - PLATELET COUNT 130 10^3/uL (130-450); RED BLOOD COUNT 4.49 10^6/uL (4.20-5.40); RED CELL DISTRIBUTION WIDTH 13.2 % (12.0-15.0); WHITE BLOOD COUNT 3.2 x10^3/uL (4.8-10.8)
[2018-07-16 10:14] LABS: ALBUMIN/GLOBULIN RATIO 1.1 (1.0-2.2); BILIRUBIN,TOTAL 1.8 mg/dL (0.2-1.0); CREATININE 0.6 mg/dL (0.4-1.0); MAGNESIUM 1.7 mg/dL (1.7-2.8); TOTAL PROTEIN 7.7 g/dL (6.7-8.2)
[2018-07-16 10:23] LABS: RBC MORPHOLOGY (MULTIPLE) 1+ ANISOCYTOSIS (NORMAL)
[2018-07-16 11:46] LABS: GLUCOSE, URINE (UA) NEGATIVE (NEGATIVE); KETONES,URINE (UA) 15 mg/dL (NEGATIVE); LEUKOCYTE ESTERASE, URINE TRACE (NEGATIVE); NITRITE,URINE NEGATIVE (NEGATIVE); OCCULT BLOOD,URINE TRACE-INTA (NEGATIVE); PH,URINE 5.5 PH (5.0-7.5); PROTEIN,URINE TRACE mg/dL (NEGATIVE); UROBILINOGEN,URINE 0.2 (NORMAL) E.U./dL (NORMAL)
[2018-07-16 11:49] LABS: CLARITY,URINE CLEAR (CLEAR)
[2018-07-16 11:50] LABS: BILIRUBIN,URINE NEGATIVE (NEGATIVE); ICTOTEST,URINE NEGATIVE
[2018-07-16 11:55] LABS: BACTERIA,URINE Few /HPF (None Seen); RBC,URINE 0-5 /HPF (0-5); SQUAMOUS EPITHELIAL CELL,UR MOD Squamous (<= Few)
[2018-07-16] MEDS ORDERED: PROMETHAZINE INJ 12.5 MG in SODIUM CHLORIDE 0.9% 50 ML IV STA (13:18)
[2018-07-16] MEDS ORDERED: FAMOTIDINE 20 MG/2 ML VIAL IVP STA (13:19)
[2018-07-16 15:16] VITALS: BP 116/61
[2018-07-16] MEDS ORDERED: DIPHENOX/ATROPINE 2.5/0.025 MG TABLET PO STA (15:16)
== END 2018-07-16 15:57 | disposition home or self-care (01) ==
LOC: ED 07:54
DX: R11.2 Nausea with vomiting, unspecified (principal); R19.7 Diarrhea, unspecified; E86.0 Dehydration; C50.919 Malignant neoplasm of unspecified site of unspecified female breast; Z92.21 Personal history of antineoplastic chemotherapy; I10 Essential (primary) hypertension; E78.00 Pure hypercholesterolemia, unspecified; E11.9 Type 2 diabetes mellitus without complications; Z79.84 Long term (current) use of oral hypoglycemic drugs; Z79.82 Long term (current) use of aspirin
CPT/HCPCS: 36415; 80053; 81001; 83605; 83690; 83735; 85025; 93005; 96361; 96365; 96375; 99284; A9270; J7040; 81003; 87086

== ENCOUNTER 2018-07-17 13:18 | Emergency (ER) | payer MEDICAID ==
[2018-07-17 14:27] LABS: BASOPHILS % (AUTO) 0.5 %; EOSINOPHILS % (AUTO) 0.7 %; HGB - HEMOGLOBIN 13.3 g/dL (12.0-16.0); MEAN CORPUSCULAR HEMOGLOBIN 32.2 pg (27.0-31.0); MEAN CORPUSCULAR HGB CONC 33.5 g/dL (32.0-36.0); MEAN PLATELET VOLUME 8.9 fL (7.9-10.8); MONOCYTES % (AUTO) 36.2 %; NEUTROPHILS % (AUTO) 37.6 %; PLT - PLATELET COUNT 153 10^3/uL (130-450); RED BLOOD COUNT 4.14 10^6/uL (4.20-5.40); RED CELL DISTRIBUTION WIDTH 13.2 % (12.0-15.0); WHITE BLOOD COUNT 3.4 x10^3/uL (4.8-10.8)
[2018-07-17 14:31] LABS: ABNORMAL LYMPHS % (MANUAL) 0 %
--- NOTE | 2018-07-17 14:32 | ED Physician Documentation ---
PD HPI NVD - Stated complaint Stated Complaint: V/D/ABDOMINAL PAIN - Chief complaint Chief Complaint: Abd Pain - History obtained from History obtained from: Patient - History of Present Illness Timing - onset: How many days ago (4) Timing - duration: Days (4) Timing - details: Abrupt onset, Still present Associated symptoms: No: Fever Contributing factors: Other (chemotherapy last Tue). No: Sick contact, Recent antibiotics Improved by: Meds (only moderately) Worsened by: Eating Recently seen: Emergency Dept (yesterday) Review of Systems Constitutional: denies: Fever Nose: denies: Rhinorrhea / runny nose, Congestion Throat: denies: Sore throat Respiratory: denies: Dyspnea, Cough GI: reports: Abdominal Pain, Nausea, Vomiting, Diarrhea. denies: Hematemesis, Bloody / black stool Neurologic: reports: Generalized weakness. 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 - Present Medications Home Medications: Ambulatory Orders Medication Instructions Recorded Confirmed Diclofenac Sodium Dr [Voltaren] 75 mg PO BID 06/27/18 07/11/18 Gabapentin 300 mg PO QPM 06/27/18 07/11/18 Losartan [Cozaar] 50 mg PO DAILY 06/27/18 07/11/18 Metoprolol Tartrate 50 mg PO BID 06/27/18 07/11/18 Sertraline HCl 100 mg PO DAILY 06/27/18 07/11/18 Simvastatin 20 mg PO QPM 06/27/18 07/11/18 clonazePAM [Clonazepam] 1 tab ORAL BID PRN 06/27/18 07/11/18 metFORMIN [Glucophage] 500 mg PO DAILYWM 06/27/18 07/11/18 Aspirin [Aspirin EC] 81 mg PO DAILY 06/29/18 07/11/18 Dexamethasone [Decadron] 4 mg PO BIDWM 07/11/18 07/11/18 Diphenoxylate/Atropine [Lomotil] 1 each PO QID PRN #12 tablet 07/16/18 Promethazine Supp [Phenergan Supp] 25 mg [place] Q6H PRN #10 supp 07/16/18 Dicyclomine [Bentyl] 20 mg PO QID PRN #16 capsule 07/17/18 - Allergies Allergies/Adverse Reactions: Allergies Allergy/AdvReac Type Severity Reaction Status Date / Time hydroxyzine Allergy Itching Verified 07/17/18 13:40 lorazepam Allergy Emesis Verified 07/17/18 13:40 meclizine Allergy Emesis Verified 07/17/18 13:40 - Social History Does the pt smoke?: No Smoking Status: Never smoker PD ED PE NORMAL - Vitals Vital signs reviewed: Yes - General General: Alert and oriented X 3, Well developed/nourished - HEENT HEENT: Moist mucous membranes, Pharynx benign - Neck Neck: Supple, no meningeal sign, No adenopathy - Cardiac Cardiac: RRR, No murmur - Respiratory Respiratory: Clear bilaterally - Abdomen Abdomen: Soft, Non distended, No organomegaly, Other (Tender diffusely but more to the mid and left side.). No: Normal bowel sounds (diminished) - Back Back: No CVA TTP - Derm Derm: Normal color, Warm and dry - Extremities Extremities: No edema, No calf tenderness / cord - Neuro Neuro: Alert and oriented X 3, No motor deficit, Normal speech Results - Vitals Vitals: Vital Signs - 24 hr 07/17/18 07/17/18 07/17/18 13:37 15:20 17:27 Temperature 37.5 C Heart Rate 90 86 84 Respiratory 15 18 12 Rate Blood Pressure 146/62 H 130/64 146/75 H O2 Saturation 93 98 90 L 07/17/18 17:39 Temperature Heart Rate 87 Respiratory 20 Rate Blood Pressure 130/65 O2 Saturation 90 L Oxygen O2 Source Room air - Labs Labs: Microbiology 07/17/18 15:06 Campylobacter Antigen Assay - Final Stool Laboratory Tests 07/17/18 07/17/18 07/17/18 14:13 14:13 14:13 WBC 3.4 L RBC 4.14 L Hgb 13.3 Hct 39.8 MCV 96.0 MCH 32.2 H MCHC 33.5 RDW 13.2 Plt Count 153 MPV 8.9 Neut # (Auto) Not Reportable Lymph # (Auto) Not Reportable [place] # (Auto) Not Reportable Eos # (Auto) Not Reportable Baso # (Auto) Not Reportable Absolute Nucleated RBC Not Reportable Total Counted 100 Band Neuts % (Manual) 4 Abnorm Lymph % (Manual) 0 Nucleated RBC % Not Reportable Neutrophils # (Manual) 0.9 L Lymphocytes # (Manual) 1.1 L Monocytes # (Manual) 1.4 H Eosinophils # (Manual) 0.0 Basophils # (Manual) 0.0 Differential Comment MANUAL DIFFERENTIAL WBC Morphology + Platelet Estimate NORMAL (130-450,000) Platelet Morphology NORMAL APPEARANCE RBC Morph Micro Appear NORMAL APPEARANCE Sodium 137 Potassium 3.5 Chloride 100 L Carbon Dioxide 28 Anion Gap 9.0 BUN 17 Creatinine 0.6 Estimated GFR (MDRD) 101 Glucose 140 H Calcium 8.8 Magnesium 1.6 L Total Bilirubin 1.5 H AST 49 H ALT 73 H Alkaline Phosphatase 68 Total Protein 7.1 Albumin 3.6 Globulin 3.5 Albumin/Globulin Ratio 1.0 Lipase 22 Urine Color Urine Clarity Urine pH Ur Specific [place] Urine Protein Urine Glucose (UA) Urine Ketones Urine Occult Blood Urine Nitrite Urine Bilirubin Urine Urobilinogen Ur Leukocyte Esterase Ur Microscopic Review Urine Culture Comments C. difficile Tox B Gene 07/17/18 07/17/18 15:06 17:56 WBC RBC Hgb Hct MCV MCH MCHC RDW Plt Count MPV Neut # (Auto) Lymph # (Auto) [place] # (Auto) Eos # (Auto) Baso # (Auto) Absolute Nucleated RBC Total Counted Band Neuts % (Manual) Abnorm Lymph % (Manual) Nucleated RBC % Neutrophils # (Manual) Lymphocytes # (Manual) Monocytes # (Manual) Eosinophils # (Manual) Basophils # (Manual) Differential Comment WBC Morphology Platelet Estimate Platelet Morphology RBC Morph Micro Appear Sodium Potassium Chloride Carbon Dioxide Anion Gap BUN Creatinine Estimated GFR (MDRD) Glucose Calcium Magnesium Total Bilirubin AST ALT Alkaline Phosphatase Total Protein Albumin Globulin Albumin/Globulin Ratio Lipase Urine Color YELLOW Urine Clarity CLEAR Urine pH 5.5 Ur Specific [place] <=1.005 Urine Protein NEGATIVE Urine Glucose (UA) NEGATIVE Urine Ketones NEGATIVE Urine Occult Blood TRACE-LYSE Urine Nitrite NEGATIVE Urine Bilirubin NEGATIVE Urine Urobilinogen 0.2 (NORMAL) Ur Leukocyte Esterase NEGATIVE Ur Microscopic Review NOT INDICATED Urine Culture Comments NOT INDICATED C. difficile Tox B Gene NEGATIVE - Rads (name of study) abd CT Radiology: Prelim report reviewed (colon empty of stool, but with fluid c/w diarrhea. No focal colitis nor diverticulitis. ), EMP read contemporaneously, See rad report PD MEDICAL DECISION MAKING - ED course Complexity details: reviewed results, considered differential (She is having chemotherapy-induced gastritis and colitis with nausea and diarrhea. She did not have any vomiting since yesterday. She has had persistent diarrhea and general weakness and feeling no appetite. She has increased tenderness to the lower abdomen today and so we will get a CT scan to ensure there is no secondary focal infection. We will give IV fluids and other medicines to help.), d/w patient, d/w regional sales consultant (Talked with Dr. Henning, hospitalist and he reviewed the chart and said there are no grounds for hospitalization in particular without vomiting currently in normal general labs. I conveyed that to the patient.) Departure - Departure Disposition: 01 Home, Self Care Clinical Impression: Chemotherapy induced diarrhea, Nausea vomiting and diarrhea Condition: Stable Record reviewed to determine appropriate education?: Yes Follow-Up: Bisi Urban DNP [Primary Care Provider] - Filemon Lopez MD [Provider Admit Priv/Credential] - Prescriptions: Dicyclomine [Bentyl] 20 mg PO QID PRN #16 capsule PRN Reason: Abdominal Pain Comments: Continue frequent fluids and some bland foods such as crackers rice and pastas. Continue the nausea medicines previously prescribed. Add Bentyl every 6 hours if needed for cramps and diarrhea. Continue the Lomotil for diarrhea. Recheck if not improving in the next couple of days.
[2018-07-17 14:47] LABS: ALBUMIN 3.6 g/dL (3.2-5.5); BILIRUBIN,TOTAL 1.5 mg/dL (0.2-1.0); CALCIUM 8.8 mg/dL (8.5-10.3); CREATININE 0.6 mg/dL (0.4-1.0); TOTAL PROTEIN 7.1 g/dL (6.7-8.2)
[2018-07-17 14:51] LABS: BAND NEUTROPHILS % (MANUAL) 4 %; LYMPHOCYTES # (MANUAL) 1.1 10^3/uL (1.5-3.5); LYMPHOCYTES % (MANUAL) 32 %; MONOCYTES # (MANUAL) 1.4 10^3/uL (0.0-1.0); NEUTROPHILS # (MANUAL) 0.9 10^3/uL (1.5-6.6); NEUTROPHILS % (MANUAL) 22 %
[2018-07-17 14:52] LABS: DIFFERENTIAL COMMENT MANUAL DIFFERENTIAL; PLATELET ESTIMATE, MANUAL NORMAL (130-450,000) (NORMAL); PLATELET MORPHOLOGY NORMAL APPEARANCE (NORMAL); RBC MORPHOLOGY (MULTIPLE) NORMAL APPEARANCE (NORMAL)
[2018-07-17] MEDS ORDERED: SODIUM CHLORIDE 0.9% 1,000 ML IV ONE ×2 (14:54→17:26)
[2018-07-17] MEDS ORDERED: ONDANSETRON 4 MG/2 ML VIAL IVP STA (14:54)
[2018-07-17] MEDS ORDERED: MORPHINE 10 MG/ML VIAL IVP STA (14:56)
[2018-07-17] MEDS ORDERED: KETOROLAC 15 MG/ML VIAL IVP STA (14:58)
[2018-07-17] MEDS ORDERED: IOVERSOL 320 100 ML VIAL IVP ONE ×2 (15:16→16:59)
--- NOTE | 2018-07-17 16:03 | CT Report ---
Reason: abd pain and diarrhea; post chemo Procedure Date: 07/17/2018 Accession Number: [id number] / [id number] Procedure: CT - Abdomen/Pelvis W CPT Code: FULL RESULT: EXAM: CT ABDOMEN AND PELVIS EXAM DATE: 07/17/2018 03:39 PM. CLINICAL HISTORY: Abdominal pain and diarrhea status post chemotherapy. COMPARISONS: ABDOMEN/PELVIS W/ 07/07/2018 10:45 AM. TECHNIQUE: Routine helical CT imaging was performed through the abdomen and pelvis. IV contrast: OPTI 320 100mL. Enteric contrast: No. Reconstructions: Coronal and sagittal. In accordance with CT protocol optimization, one or more of the following dose reduction techniques were utilized for this exam: automated exposure control, adjustment of mA and/or KV based on patient size, or use of iterative reconstructive technique. FINDINGS: Lung Bases: Unremarkable. Liver: The liver is hypodense with respect to the spleen as before. No focal masses or enlargement. Gallbladder/Bile Ducts: Numerous small gravelly gallbladder stones layer and the lumen as before. No evidence for acute cholecystitis or biliary obstruction. Spleen: Normal. Pancreas: Normal. Adrenal Glands: Normal. Kidneys: Normal. No masses or hydronephrosis. Peritoneal Cavity/Bowel: No formed stool present within the colon. Scattered small air-fluid levels are present. No bowel obstruction or constipation. No free fluid or adenopathy. The appendix is well visualized and normal. Pelvic Organs: The bladder is decompressed. The uterus, ovaries and rectum are within normal limits. No free fluid. Vasculature: No aneurysms or other significant abnormality. Bones: Mild anterolisthesis L4-L5 present. Scattered degenerative disk and facet disease present. No focal bone lesion or fracture identified. There is moderate to severe right and more mild left hip osteoarthritis. Other: None. IMPRESSION: 1. Colon devoid of stool and containing small air-fluid levels suggesting nonspecific diarrheal process. No focal colitis or obstruction. Normal appendix. 2. Cholelithiasis without cholecystitis similar to prior exam. 3. Fatty infiltrated liver unchanged. RADIA
[2018-07-17] MEDS ORDERED: MAGNESIUM SULFATE 2 GRAM 2 GM/50 ML BAG IV ONE (16:28)
[2018-07-17] MEDS ORDERED: DEXAMETHASONE 10 MG/ML VIAL IVP STA (17:06)
[2018-07-17] MEDS ORDERED: DICYCLOMINE 10 MG CAPSULE PO STA (17:06)
[2018-07-17] MEDS ORDERED: DIPHENOX/ATROPINE 2.5/0.025 MG TABLET PO STA (17:06)
[2018-07-17] MEDS ORDERED: PROCHLORPERAZINE 10 MG/2 ML VIAL IVP STA (17:25)
[2018-07-17 19:00] LABS: BILIRUBIN,URINE NEGATIVE (NEGATIVE); GLUCOSE, URINE (UA) NEGATIVE (NEGATIVE); KETONES,URINE (UA) NEGATIVE (NEGATIVE); LEUKOCYTE ESTERASE, URINE NEGATIVE (NEGATIVE); NITRITE,URINE NEGATIVE (NEGATIVE); OCCULT BLOOD,URINE TRACE-LYSE (NEGATIVE); PH,URINE 5.5 PH (5.0-7.5); PROTEIN,URINE NEGATIVE (NEGATIVE); UROBILINOGEN,URINE 0.2 (NORMAL) E.U./dL (NORMAL)
[2018-07-17 19:05] LABS: CLARITY,URINE CLEAR (CLEAR)
[2018-07-17 19:24] VITALS: BP 128/61
== END 2018-07-17 19:52 | disposition home or self-care (01) ==
LOC: ED 13:18
DX: K52.1 Toxic gastroenteritis and colitis (principal); T45.1X5A Adverse effect of antineoplastic and immunosuppressive drugs, initial encounter; R11.11 Vomiting without nausea; C50.919 Malignant neoplasm of unspecified site of unspecified female breast; I10 Essential (primary) hypertension; E78.00 Pure hypercholesterolemia, unspecified; E11.9 Type 2 diabetes mellitus without complications; Z79.84 Long term (current) use of oral hypoglycemic drugs
CPT/HCPCS: 36415; 74177; 80053; 81003; 83690; 83735; 85025; 87045; 87046; 87493; 96361; 96365; 96375; 99283; A9270; Q9967; 81001; 87086

== ENCOUNTER 2018-07-20 11:22 | Inpatient (IN) | payer MEDICAID ==
[2018-07-20] MEDS ORDERED: TEMAZEPAM 15 MG CAPSULE PO PRN (11:42)
[2018-07-20] MEDS ORDERED: ONDANSETRON 4 MG/2 ML VIAL IVP PRN (11:42)
--- NOTE | 2018-07-20 11:47 | HISTORY & PHYSICAL EXAMINATION ---
Chief Complaint - Chief Complaint Chief Complaint: intractable diarrhea History of Present Illness - Admitted From Admitted From:: Oncology clinic - History Obtained From Records Reviewed: yes History obtained from: patient, records review Exam Limitations: none - History of Present Illness HPI Comment/Other: Kristie Lantigua is a 63-year old female with a past medical history of diabetes mellitus type 2, hypertension, hyperlipidemia, status post laminectomy (L4, L5, S1) x2 in 1994, then in 2017, complicated by a nicked spinal dura and repair requiring prolonged bedrest and prison rehab ~35 days, vestibular neuritis, chronic vertigo, stable gallstones, syncope and collapse without injury, obstructive sleep apnea- no longer requiring a CPAP, varicose vein stripping, and anxiety disorder. The patient was recently diagnosed with left breast infiltrating ductal carcinoma and is status post a left axillary lymph node biopsy. She has had treatment at [place] [place] and is followed by Harika Lopez/Laila Fay [facility] oncology. She underwent her first round of chemo at the beginning of this month. She has had 2 trips to our ED and daily MAC visits this week for symptom management of primarily her uncontrolled, frequent and incontinent diarrhea. She has not been able to eat any solid food since 07/13/2018, and is having grave difficulty with keeping orally, a spoonful at a time down before throwing it up. She has consequently developed oral thrush, excoriated racquel-rectal skin and in the past 3 days has had left eye vision loss, dizziness, insomnia, dry heaves, shortness of breath, chills, diaphoresis, and increased short term memory loss with word finding difficulties. Upon arrival to the nursing floor she is accompanied by her sister, Saturnino who has been her main support for this difficult initiation into treatment of her breast cancer. Unfortunately, Saturnino must travel back to [place], which is where she r esides in 2 days. Niko, from our social work team has been very helpful and supportive outpatient in helping provide resources, lending a listening ear regarding Saturnino's soon departure, and may continue to see the patient while inpatient. Kristie has many reservations about staying at home alone upon discharge due to her inability to consume food, liquids, her recent stool incontinence, acute left eye blindness that only started 3 days ago, ongoing dizziness, weakness and emotional instability this new diagnosis has caused her. On exam Kristie states that her primary complaint is her diffuse abdominal pain that at times, takes her breath away it is so severe and is described as sharp, cramping, intermittent and rates it as a 5 out of 10. She also admits to being bothered by her profoundly sore throat, swelling in her left eye, mouth soreness from her recent oral thrush, and increased shortness of breath. She also states that she has had new bilateral toe numbness and tingling, and new onset frontal headaches since starting chemo. She described an event at 0200 AM this morning in which she woke up in a panic because she felt as if her throat was closing off, had sudden onset of dry heaves, anxiety, diaphoresis, and blurred vision. She states that the only thing that relieved this was the fact that her sister was by her side and could calm her. She also took a lorazepam recently prescribed by oncology, which also helped. She is now wearing oxygen for ongoing dyspnea, shortness of breath, and throat swelling. She will be admitted to observation for symptom management as her labs are not that impressive for severe hydration showing no electrolyte abnormalities, chest x-ray shows no acute infiltrates, and a nutritional consult will be made due to worrisome reports of no food since 07/13 (8 days ago). History - Past Medical History Cardiovascular: reports: Hypertension, High cholesterol, Peripheral Vascular Disease, Murmur Respiratory: reports: Sleep apnea, CPAP use (states that she no longer needs one) Neuro: reports: Headaches, Peripheral neuropathy, Fainting Endocrine/Autoimmune: reports: Type 2 diabetes GI: reports: GERD, Cholelithiasis ENVIRONMENTAL PROTECTION INSPECTOR: reports: Miscarriage(s) (x1), Breast cancer : reports: None HEENT: reports: Chronic vision loss (acute vision loss), Chronic sinusitis Psych: reports: Anxiety Musculoskeletal: reports: Osteoarthritis Derm: reports: None, Other MRSA Hx?: No - Past Surgical History Ortho: reports: Spine surgery (s/p laminectomy 1994 and 2016, complicated by a nicked spinal dura-repaired) /ENVIRONMENTAL PROTECTION INSPECTOR: reports: Tubal ligation, Other (left breast bx) - Family & Social History Family History: Mother: , CAD, Obesity, Father: , CAD, Sister: , CAD, Diabetes, Type 2, Obesity, Brother: , CAD, Diabetes, Type 2, Obesity Family History Comment/Other: Patient is one of 7 siblings, 6 are still living, parents are Living arrangement: At home Living Situation: Alone Social History Notes: The patient has lived in [place] for the past 24 years. 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 She lives alone, has a son and a daughter who have their own lives making minimum wage, so cannot help their mother out much. She has been for the past 16 years, never re-. Since her breast cancer treatments, her sister Saturnino has been supportive by staying with her, but lives in [place], so is not a reliable, long-term support. She denies the use of tobacco, alcohol, or illicit drugs. She wishes to be a full code. - Substance History Use: Uses substance without health or social issues: NONE Abuse: Recurrent use of substance despite neg consequences: NONE Dependence: Experiences withdrawal or developed tolerances: NONE - POLST Patient has POLST: No POLST Status: Full Code Meds/Allgy - Home Medications Home Medications: Ambulatory Orders Medication Instructions Recorded Confirmed Diclofenac Sodium Dr [Voltaren] 75 mg PO BID 06/27/18 07/20/18 Gabapentin 300 mg PO QPM 06/27/18 07/20/18 Metoprolol Tartrate 50 mg PO BID 06/27/18 07/20/18 Sertraline HCl 100 mg PO DAILY 06/27/18 07/20/18 Simvastatin 20 mg PO QPM 06/27/18 07/20/18 clonazePAM [Clonazepam] 0.5 mg ORAL BID PRN 06/27/18 07/20/18 metFORMIN [Glucophage] 500 mg PO DAILYWM 06/27/18 07/20/18 Aspirin [Aspirin EC] 81 mg PO DAILY 06/29/18 07/20/18 Dexamethasone [Decadron] 4 mg PO BIDWM 07/11/18 07/20/18 Promethazine Supp [Phenergan Supp] 25 mg WA Q6H PRN #10 supp 07/16/18 07/20/18 Dicyclomine HCl 20 mg PO Q6H PRN 07/18/18 07/20/18 LORazepam [Lorazepam] 0.5 mg PO Q6H PRN 07/18/18 07/20/18 Prochlorperazine [Compazine] 10 mg PO Q6H 07/18/18 07/20/18 Diphenoxylate/Atropine [Lomotil] 1 tab PO QID PRN 07/20/18 07/20/18 Fluconazole 100 mg PO DAILY 07/20/18 07/20/18 Valsartan 80 mg PO DAILY 07/20/18 07/20/18 - Allergies Allergies/Adverse Reactions: Allergies Allergy/AdvReac Type Severity Reaction Status Date / Time hydroxyzine Allergy Itching Verified 07/17/18 13:40 lorazepam Allergy Emesis Verified 07/17/18 13:40 meclizine Allergy Emesis Verified 07/17/18 13:40 Review of Systems - Constitutional Constitutional: reports: Fatigue, Chills, Weakness, Poor appetite, Diaphoresis, Weight loss (10 lbs since diagnosed) - Eyes Eyes: reports: Field loss, Vision loss (acute ~3 days ago thought to be caused by Bentyl), Corrective lenses - Ears, Nose & Throat Ears, Nose & Throat: reports: Vertigo, Postnasal drainage, Sore throat, Hoarseness, Mouth lesions, Bleeding gums, Dental decay - Cardiovascular Cariovascular: reports: Edema, Lightheadedness, Syncope, Exertional dyspnea, Decr. exercise tolerance - Respiratory Respiratory: reports: Cough, SOB at rest, SOB with exertion - Gastrointestinal Gastrointestinal: reports: Abdominal pain, Abdominal distention, Diarrhea, Change in bowel habits, Rectal bleeding, Nausea, Vomiting, Bile emesis, Reflux/heartburn, Bloating, Poor appetite - Genitourinary Genitourinary: reports: Dysuria, Frequency, Nocturia - Musculoskeletal Musculoskeletal: reports: Back pain, Muscle weakness - Integumentary Integumentary: reports: Lesions, Dryness, Pigment changes, Other (flushed cheeks) - Neurological Neurological: reports: General weakness, Headache, Dizziness, Numbness (BLEs new since starting chemo), Pre-existing deficit - Psychiatric Psychiatric: reports: Anxiety, Other (tearful upon exam) - Endocrine Endocrine: reports: Intolerance to cold - Hematologic/Lymphatic Hematologic/Lymphatic: reports: Anemia, Bruising - All Other Systems All Other Systems: reports: Reviewed and negative Prior Level of Functionality: Lives independently, uses a can occasionally, denies recent falls Exam - Vital Signs Reviewed Vital Signs: Yes - Physical Exam General Appearance: positive: Alert, Moderate distress, Anxious, Other (tearful) Eyes Bilateral: positive: PERRL, No lid inflammation (left greater than right). negative: No scleral icterus (mild) ENT: positive: Pharyngeal erythema, Oral lesions, Dry mucous membranes Neck: positive: No JVD, Trachea midline, Lymphadenopathy (R), Lymphadenopathy (L), Stiff neck, Swelling/bruising (irritated throat, mid-sternal soreness) Respiratory: positive: Wheezes, Rhonchi Cardiovascular: positive: Regular rate & rhythm, No gallop, Systolic murmur Peripheral Pulses: positive: 2+ Abdomen: positive: Tenderness, Guarding, Hepatomegaly, Abnml bowel sounds, Other (rounded, soft) Back: positive: Nml inspection Skin: positive: No rash, Warm, Diaphoresis, Other (lesions to BUEs, scattered brusing, scabbed lesions to posterior, upper back, left breast bx site scabbed, right upper chest port site with a scabbed, no evidence of cellulitis) Extremities: positive: Non-tender, Pedal edema, Joint swelling Neurologic/Psychiatric: positive: Oriented x3, CN's nml (2-12), Motor nml, Sensation nml, Sensory loss (mild numbness and tingling to BLEs, new since starting chemo), Depressed mood/affect Reflexes: Bicep (R): 3+, Bicep (L): 3+, Ankle (R): 2+, Ankle (L): 2+ Sepsis Event Note (H) - Evaluation Current Stage of Sepsis: Ruled out Conclusion/Plan - Problem List (1) Nausea vomiting and diarrhea Conclusion/Plan: - No solid food or substantial liquid intake since 07/13 (8 days ago) - Dry heaves reported at 0200 AM this morning - Reported at least 9 stools since yesterday - Abdominal pain, nausea are intermittent and become worse prior to having tonja rrhea Plan: Resume lorazepam, lomotil, IV fluids, Octreotide SQ, start dexamethasone spaced out every 8 hours IV (2) Dehydration Conclusion/Plan: - Reports of greater than 9 stools in one day - C-diff was negative on 07/17/2018 - On exam, very dry mucous membranes, poor skin turgor, and patient reports low urine output so far today Plan: Continue IV fluids, monitor labs, weights, and physical exam findings (3) Acute metabolic encephalopathy Conclusion/Plan: - Patient is having short term memory loss and word finding difficulties - Also noted by the patient's sister who is present for her admission exam - Patient admits to confusion that has been worse in the past 24 hours - On exam, neuro intact Plan: Continue to monitor, fall precautions (4) Carcinoma of left breast Conclusion/Plan: - Left breast infiltrating ductal carcinoma, ER strongly positive, WA 75%, Ki-67 40%, HER-2 positive by IHC - Primary tumor is 3.5 cm at the 6 o'clock position, known left axillary lymph node metastases measuring 7 cm - Status post left breast biopsy Plan: Continue to treat acute symptoms, keep MAC clinic updated Qualifiers: Breast location: central portion of breast Estrogen receptor status: positive Patient sex: female Qualified Code(s): C50.112 - Malignant neoplasm of central portion of left female breast; Z17.0 - Estrogen receptor positive status [ER+] (5) Status post chemotherapy Conclusion/Plan: - Chemo with pertuzumab, trastuzumab, docetaxel and carboplatin every 21 days for 6 cycles - Not tolerating this first cycle very well as per Oncology notes Plan: Observation stay to control symptoms (6) Anxiety Conclusion/Plan: - Recently prescribed Lorazepam - Tearful during some topics related to prognosis estimates, financial situation, and what the future might hold Plan: Continue here, also providing anti-emetic effects (7) Vision loss, left eye Conclusion/Plan: - First noticed 3 days prior - Oncology mentioned it may be caused by Bentyl - On exam, no abnormal findings, + red reflex, no drainage - lid inflammation, flushed cheeks on exam left greater than right Plan: Fall precautions (8) Protein calorie malnutrition Conclusion/Plan: - recent weight loss, at least 10 lbs in the past 14 days - no solid food or oral intake that has protein since 07/13 - uncontrolled symptoms make taking in calories difficult Plan: Nutritional consult to assist with starting PPN Qualifiers: Protein-calorie malnutrition severity: unspecified severity Qualified Code(s): E46 - Unspecified protein-calorie malnutrition (9) Thrush of mouth and esophagus Conclusion/Plan: - Treated with an anti-fungal outpatient given her inability to swallow comfortably - Now with neck swelling, lymphadenopathy, and a profoundly hoarse, sore throat - Also complaining of racquel-rectal soreness Plan: IV diflucan daily, WCON consult for excoriated racquel-rectal skin (10) Hypomagnesemia Conclusion/Plan: - Magnesium was low while seen in the ED at 1.6 - Status post replacement - Now 1.5, likely from continued stools Plan: Give IV replacement via PPN, recheck labs (11) Essential hypertension Conclusion/Plan: - Home meds include an ARB and a beta van Plan: Resume when tolerating PO intake, monitor vital signs (12) Diabetes mellitus type 2, controlled Conclusion/Plan: - Metformin 500mg daily at home - Hg A1C is pending - Blood sugars 128-161 since admission Plan: Start Lantus 10 units, SSI and blood sugar checks, CL diet for now Qualifiers: Diabetes mellitus detention insulin use: without detention use Diabetes mellitus complication detail: with nephropathy (13) Peripheral neuropathy Conclusion/Plan: - First diagnosed with DM ~ 10 years ago - Denies prior symptoms, only since starting chemo - BLE numbness and tingling - Takes gabapentin at home @ HS Plan: Hold until tolerating PO Qualifiers: Peripheral neuropathy type: polyneuropathy associated with underlying disease Qualified Code(s): G63 - Polyneuropathy in diseases classified elsewhere (14) Major depressive disorder Conclusion/Plan: - Takes Zoloft at home - Now on hold due to not toleration PO intake or pills Plan: Resume when tolerating food or oral intake (15) Hyperlipidemia associated with type 2 diabetes mellitus Conclusion/Plan: - Takes a statin at home - Now on hold due to poor oral intake and her intolerance to oral medications Plan: Resume when swallowing improves - Lab Results Lab results reviewed: Yes Orlin Bones: 07/21/18 05:05 07/21/18 05:05 Core Measures - Anticipated LOS I expect patient to be DC'd or transferred within 96 hours.: Yes - DVT/VTE - Prophylaxis VTE/DVT Device ordered at admit?: Yes VTE/DVT Prophylaxis med ordered at admit?: Yes - Stroke - Rehab Assessment Rehab services assessment to be ordered?: No Not Ordered - Medical Reason: Contraindicated - AMI - Statin at Admit Aspirin Prescribed on Admit: Yes
[2018-07-20 14:26] LABS: BASOPHILS % (AUTO) 0.5 %; EOSINOPHILS % (AUTO) 0.2 %; HGB - HEMOGLOBIN 12.2 g/dL (12.0-16.0); LYMPHOCYTES % (AUTO) 12.4 %; MEAN CORPUSCULAR HEMOGLOBIN 32.3 pg (27.0-31.0); MEAN CORPUSCULAR HGB CONC 33.5 g/dL (32.0-36.0); MEAN CORPUSCULAR VOLUME 96.4 fL (81.0-99.0); MEAN PLATELET VOLUME 8.2 fL (7.9-10.8); MONOCYTES % (AUTO) 9.6 %; NEUTROPHILS % (AUTO) 77.3 %; PLT - PLATELET COUNT 146 10^3/uL (130-450); RED BLOOD COUNT 3.79 10^6/uL (4.20-5.40); RED CELL DISTRIBUTION WIDTH 13.5 % (12.0-15.0); WHITE BLOOD COUNT 9.2 x10^3/uL (4.8-10.8)
--- NOTE | 2018-07-20 14:41 | XRAY Report ---
Reason: hypoxia, cough, chest tightness Procedure Date: 07/20/2018 Accession Number: [id number] / [id number] Procedure: XR - Chest 1 View X-Ray CPT Code: 59021 FULL RESULT: EXAM: CHEST RADIOGRAPHY EXAM DATE: 07/20/2018 01:41 PM. CLINICAL HISTORY: Hypoxia, cough, chest tightness. COMPARISON: GENERAL 07/11/2018 2:10 PM. TECHNIQUE: 1 view. FINDINGS: Lungs/Pleura: No focal opacities evident. No pleural effusion. No pneumothorax. Mediastinum: Within exam limitations, the cardiomediastinal contour is normal. Other: Central venous port with appearance of catheter concerning for "pinch off syndrome" at the subclavian vascular access site, consistent with recent port check. IMPRESSION: No definite consolidation. "Pinch off syndrome" of suboptimally placed port suspected. RADIA
[2018-07-20 14:43] LABS: ALBUMIN 3.2 g/dL (3.2-5.5); ALBUMIN/GLOBULIN RATIO 1.2 (1.0-2.2); BILIRUBIN,TOTAL 0.7 mg/dL (0.2-1.0); CALCIUM 8.5 mg/dL (8.5-10.3); CREATININE 0.4 mg/dL (0.4-1.0); MAGNESIUM 1.5 mg/dL (1.7-2.8); TOTAL PROTEIN 5.9 g/dL (6.7-8.2)
[2018-07-20 14:45] LABS: ABNORMAL LYMPHS % (MANUAL) 0 %
[2018-07-20 14:50] LABS: BAND NEUTROPHILS % (MANUAL) 6 %; LYMPHOCYTES # (MANUAL) 1.6 10^3/uL (1.5-3.5); LYMPHOCYTES % (MANUAL) 17 %; METAMYELOCYTES % (MANUAL) 3 %; MONOCYTES # (MANUAL) 0.5 10^3/uL (0.0-1.0); NEUTROPHILS # (MANUAL) 6.9 10^3/uL (1.5-6.6); NEUTROPHILS % (MANUAL) 69 %
[2018-07-20 14:52] LABS: PLATELET ESTIMATE, MANUAL NORMAL (130-450,000) (NORMAL); PLATELET MORPHOLOGY NORMAL APPEARANCE (NORMAL); RBC MORPHOLOGY (MULTIPLE) 1+ POLYCHROMASIA (NORMAL)
[2018-07-20 14:53] LABS: DIFFERENTIAL COMMENT MANUAL DIFFERENTIAL
[2018-07-20] MEDS ORDERED: PROMETHAZINE 25 MG SUPP PR PRN (15:49)
[2018-07-20] MEDS ORDERED: ACETAMINOPHEN 1,000 MG/100 ML 100 ML IV PRN (15:52)
[2018-07-20] MEDS ORDERED: HYDROmorphone 1 MG/ML CARPUJECT IVP PRN (15:52)
[2018-07-20] MEDS ORDERED: NS W/20 MEQ KCL 1,000 ML IV SCH (16:00)
[2018-07-20] MEDS: ACETAMINOPHEN 325 MG TABLET PO PRN (16:33)
[2018-07-20] MEDS: INSULIN ASPART 300 UNIT/3 ML PEN SUBQ SCH ×2 (16:52→22:16)
[2018-07-20] MEDS: SODIUM CHLORIDE FLUSH 0.9% 10 ML SYRINGE IVP SCH (16:52)
[2018-07-20] MEDS ORDERED: POTASSIUM PHOSPHATE IV ONE ×5 (19:00)
[2018-07-20] MEDS ORDERED: MULTIVITAMIN IV ONE ×5 (19:00)
[2018-07-20] MEDS ORDERED: MAGNESIUM SULFATE IV ONE ×5 (19:00)
[2018-07-20] MEDS ORDERED: FAT EMULSION 20% 250 ML IV ONE (19:00)
[2018-07-20] MEDS ORDERED: [UNRECOGNIZED DRUG - OTHER] IV ONE ×5 (19:00)
[2018-07-20] MEDS ORDERED: BENZOCAINE/MENTHOL LOZENGE MM PRN (20:04)
[2018-07-20] MEDS ORDERED: INSULIN GLARGINE 300 UNIT/3 ML PEN SUBQ SCH (21:00)
[2018-07-20] MEDS: OCTREOTIDE 100 MCG/ML VIAL SUBQ SCH (21:41)
[2018-07-20] MEDS ORDERED: FLUCONAZOLE 200 MG/100 ML 100 ML IV SCH (22:00)
[2018-07-20] MEDS: DEXAMETHASONE 10 MG/ML VIAL IVP SCH (23:02)
[2018-07-20] MEDS ORDERED: MINERAL OIL/PETROLAT OPHTH OINT EACHEYE PRN (23:08)
[2018-07-21] MEDS: DIPHENOX/ATROPINE 2.5/0.025 MG TABLET PO PRN ×2 (01:01→16:39)
[2018-07-21] MEDS: FLUCONAZOLE 100 MG TABLET PO SCH ×2 (01:03→22:12)
[2018-07-21 01:15] LABS: HB2 TOTAL 12.9 g/dL; HEMOGLOBIN A1C 0.74 g/dL; HEMOGLOBIN A1C % 7.4 % (4.6-6.2)
[2018-07-21] MEDS: SODIUM CHLORIDE FLUSH 0.9% 10 ML SYRINGE IVP SCH ×4 (01:15→23:48)
[2018-07-21] MEDS ORDERED: PHENOL THROAT SPRAY 177 ML MM PRN (03:28)
[2018-07-21] MEDS ORDERED: CARBOXYMETHYLCELLULOSE OPHTH DROPS EACHEYE PRN (03:33)
[2018-07-21] MEDS: SODIUM CHLORIDE FLUSH 0.9% 10 ML SYRINGE IVP PRN ×3 (03:40→15:08)
[2018-07-21] MEDS: PROCHLORPERAZINE 10 MG/2 ML VIAL IVP PRN (03:49)
[2018-07-21] MEDS: OCTREOTIDE 100 MCG/ML VIAL SUBQ SCH ×3 (06:09→22:12)
[2018-07-21] MEDS: DEXAMETHASONE 10 MG/ML VIAL IVP SCH ×2 (06:13→15:08)
[2018-07-21 06:25] LABS: BASOPHILS % (AUTO) 0.3 %; HGB - HEMOGLOBIN 12.5 g/dL (12.0-16.0); LYMPHOCYTES # (AUTO) 0.6 10^3/uL (1.5-3.5); LYMPHOCYTES % (AUTO) 5.7 %; MEAN CORPUSCULAR HEMOGLOBIN 32.2 pg (27.0-31.0); MEAN CORPUSCULAR VOLUME 97.5 fL (81.0-99.0); MEAN PLATELET VOLUME 8.5 fL (7.9-10.8); MONOCYTES # (AUTO) 0.5 10^3/uL (0.0-1.0); MONOCYTES % (AUTO) 5.1 %; NEUTROPHILS # (AUTO) 8.6 10^3/uL (1.5-6.6); NEUTROPHILS % (AUTO) 88.9 %; PLT - PLATELET COUNT 148 10^3/uL (130-450); RED BLOOD COUNT 3.88 10^6/uL (4.20-5.40); RED CELL DISTRIBUTION WIDTH 13.7 % (12.0-15.0); WHITE BLOOD COUNT 9.7 x10^3/uL (4.8-10.8)
[2018-07-21 06:33] LABS: ALBUMIN 3.1 g/dL (3.2-5.5); BILIRUBIN,TOTAL 0.7 mg/dL (0.2-1.0); CALCIUM 8.5 mg/dL (8.5-10.3); CREATININE 0.4 mg/dL (0.4-1.0); MAGNESIUM 1.7 mg/dL (1.7-2.8); PHOSPHORUS 3.8 mg/dL (2.5-4.6); TOTAL PROTEIN 6.1 g/dL (6.7-8.2)
[2018-07-21] MEDS: PANTOPRAZOLE 40 MG TABLET PO SCH (06:43)
[2018-07-21 06:49] LABS: DIFFERENTIAL COMMENT MANUAL=AUTO DIFF; PLATELET ESTIMATE, MANUAL NORMAL (130-450,000) (NORMAL); RBC MORPHOLOGY (MULTIPLE) NORMAL APPEARANCE (NORMAL)
[2018-07-21] MEDS ORDERED: POLYETHYLENE GLYCOL 3350 17 GM PACKET PO SCH (09:00)
[2018-07-21] MEDS: INSULIN ASPART 300 UNIT/3 ML PEN SUBQ SCH ×4 (09:14→22:13)
[2018-07-21] MEDS: SERTRALINE 50 MG TABLET PO SCH (10:10)
[2018-07-21] MEDS: ENOXAPARIN 40 MG/0.4 ML SYRINGE SUBQ SCH (10:10)
[2018-07-21] MEDS: [UNRECOGNIZED DRUG - OTHER] IV SCH ×5 (16:23)
[2018-07-21] MEDS: POTASSIUM PHOSPHATE IV SCH ×5 (16:23)
[2018-07-21] MEDS: MAGNESIUM SULFATE IV SCH ×5 (16:23)
[2018-07-21] MEDS: MULTIVITAMIN IV SCH ×5 (16:23)
[2018-07-21] MEDS ORDERED: A & D OINTMENT 5 GM PACKET TOP PRN (16:48)
[2018-07-21] MEDS ORDERED: WHEAT DEXTRIN POWDER PACKET PO PRN (16:50)
[2018-07-21] MEDS: METOPROLOL SUCCINATE 25 MG TABLET PO SCH (19:43)
--- NOTE | 2018-07-21 20:46 | PROVIDER PROGRESS NOTE ---
Subjective - Prog Note Date Prog Note Date: 07/21/18 Prog Note Time: 20:43 - Subjective Pt reports feeling: No change Subjective: Kristie is concerned about what will happen when she gets home without anyone at home to help out since her sister, Saturnino is on her way back to [place] tomorrow. She denies chest pain, vomiting, nausea, bleeding, a new rash or an increased cough. * Her evening meal has been her first consumable meal today, which took her nearly 3 hours from start to finish. This has caused a very full feeling in her belly. Current Medications - Current Medications Current Medications: Active Medications: Acetaminophen (Tylenol) 650 mg PO Q4HR PRN Carboxymethylcellulose (Refresh 1% Ophth Drops) 1 drops EACHEYE PRN PRN Diphenoxylate HCl/Atropine (Lomotil) 1 tab PO QID PRN Enoxaparin Sodium (Lovenox) 40 mg SUBQ DAILY JAY Fluconazole (Diflucan) 200 mg PO QPM JAY Gabapentin (Neurontin) 300 mg PO QPM JAY Hydromorphone HCl (Dilaudid Inj Carp) 1 mg IVP Q2HR PRN Acetaminophen (Ofirmev) 100 mls @ 400 mls/hr IV Q6HR PRN Potassium Phosphate 20 mmol/Magnesium Sulfate 0.6 gm/Multivitamins 10 ml/ Chromium/Copper/Manganese/Seleni/Zn 1 ml/ Amino Acids/Electrolytes/Dextrose 2,018.8667 mls @ 100 mls/hr IV .[id number] JAY Insulin Aspart (Novolog) 1 - 5 unit SUBQ 0800,1200,1700,2100 JAY; Protocol Insulin Glargine (Lantus Solostar) 15 unit SUBQ QPM JAY Lorazepam (Ativan) 0.5 mg PO Q4H PRN Metoprolol Succinate (Toprol Xl) 12.5 mg PO BIDWM JAY Multi-Ingred Cream/Lotion/Oil/Oint (Lubrifresh Pm Ophth Oint) 1 applic EACHEYE QPM PRN Octreotide Acetate (Sandostatin) 50 mcg SUBQ TID JAY Ondansetron HCl (Zofran Inj) 4 mg IVP Q6HR PRN Pantoprazole Sodium (Protonix) 40 mg PO QDAC JAY Phenol/Menthol (Chloraseptic) 2 sprays MM Q2HR PRN Prochlorperazine Edisylate (Compazine Inj) 10 mg IVP Q6HR PRN Promethazine HCl (Phenergan Supp) 25 mg [place] Q6H PRN Sertraline HCl (Zoloft) 100 mg PO DAILY JAY Temazepam (Restoril) 15 mg PO QPM PRN Throat Lozenges (Cepacol) 1 lozenge MM Q2HR PRN Vitamin A/Vitamin D (Vitamin A & D Ointment) 1 applic TOP TID PRN Wheat Dextrin (Benefiber) 1 packet PO DAILY PRN HOME meds: Diclofenac Sodium Dr [Voltaren] 75 mg PO BID 06/27/18 Gabapentin 300 mg PO QPM 06/27/18 Metoprolol Tartrate 50 mg PO BID 06/27/18 Sertraline HCl 100 mg PO DAILY 06/27/18 Simvastatin 20 mg PO QPM 06/27/18 clonazePAM [Clonazepam] 0.5 mg ORAL BID PRN 06/27/18 metFORMIN [Glucophage] 500 mg PO DAILYWM 06/27/18 Aspirin [Aspirin EC] 81 mg PO DAILY 06/29/18 Dexamethasone [Decadron] 4 mg PO BIDWM 07/11/18 Dicyclomine HCl 20 mg PO Q6H PRN 07/18/18 LORazepam [Lorazepam] 0.5 mg PO Q6H PRN 07/18/18 Prochlorperazine [Compazine] 10 mg PO Q6H 07/18/18 Diphenoxylate/Atropine [Lomotil] 1 tab PO QID PRN 07/20/18 Fluconazole 100 mg PO DAILY 07/20/18 Valsartan 80 mg PO DAILY 07/20/18 Objective - Vital Signs/Intake & Output Reviewed Vital Signs: Yes Vital Signs: Vital Signs x48h Temp Pulse Resp BP Pulse Ox 07/21/18 19:51 75 164/83 H 07/21/18 16:00 36.4 C L 63 20 140/71 H 93 07/21/18 13:20 36.2 C L 76 16 150/79 H 94 Intake & Output: Intake & Output 07/18/18 07/19/18 07/20/18 07/21/18 23:59 23:59 23:59 23:59 Intake Total 1384 3383.9667 Output Total 150 2500 Balance 9508 898.8086 - Objective General Appearance: positive: Alert, Mild distress, Anxious Eyes Bilateral: positive: Conjunctivae nml Eyes: OU Lid inflammation (left greater than right) ENT: positive: Pharyngeal erythema, Oral lesions (no open areas, continued soreness), Dry mucous membranes Neck: positive: No JVD, Lymphadenopathy (R), Lymphadenopathy (L), Stiff neck Respiratory: positive: Chest non-tender, No respiratory distress, Other (diminshed) Cardiovascular: positive: Regular rate & rhythm, No gallop, Systolic murmur Peripheral Pulses: 1+ Radial (R), 1+ Radial (L) Abdomen: positive: Nml bowel sounds, Tenderness, Guarding, Other (rounded, soft) Back: positive: Nml inspection Skin: positive: Color nml, No rash, Warm, Dry, Other (bronze tone, flushed cheeks) Extremities: positive: Non-tender, Full ROM, No pedal edema Neurologic/Psychiatric: positive: Oriented x3, CN's nml (2-12), Motor nml, Sensation nml, Mood/affect nml, Weakness, Sensory loss (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), Depressed mood/affect Reflexes: Bicep (R): 3+, Bicep (L): 3+ - Lab Results Fish Bones: 07/21/18 05:05 07/21/18 05:05 Other Labs: Lab Results x24hrs 07/21/18 07/21/18 07/21/18 Range/Units 16:36 11:39 07:53 WBC (4.8-10.8) x10^3/uL RBC (4.20-5.40) 10^6/uL Hgb (12.0-16.0) g/dL Hct (37.0-47.0) % MCV (81.0-99.0) fL MCH (27.0-31.0) pg MCHC (32.0-36.0) g/dL RDW (12.0-15.0) % Plt Count (130-450) 10^3/uL MPV (7.9-10.8) fL Neut # (Auto) (1.5-6.6) 10^3/uL Lymph # (Auto) (1.5-3.5) 10^3/uL [place] # (Auto) (0.0-1.0) 10^3/uL Eos # (Auto) (0.0-0.7) 10^3/uL Baso # (Auto) (0.0-0.1) 10^3/uL Absolute Nucleated RBC x10^3/uL Band Neuts % (Manual) Abnorm Lymph % (Manual) Nucleated RBC % /100WBC Neutrophils # (Manual) Lymphocytes # (Manual) Monocytes # (Manual) Eosinophils # (Manual) Basophils # (Manual) Differential Comment Platelet Estimate (NORMAL) RBC Morph Micro Appear (NORMAL) Sodium (135-145) mmol/L Potassium (3.5-5.0) mmol/L Chloride (101-111) mmol/L Carbon Dioxide (21-32) mmol/L Anion Gap (6-13) BUN (6-20) mg/dL Creatinine (0.4-1.0) mg/dL Estimated GFR (MDRD) (>89) Glucose (70-100) mg/dL POC Whole Bld Glucose 186 H 191 H 171 H (70 - 100) mg/dL Glycated Hemoglobin (4.6-6.2) % Estim Average Glucose (70-100) Lactic Acid (0.5-2.2) mmol/L Calcium (8.5-10.3) mg/dL Phosphorus (2.5-4.6) mg/dL Magnesium (1.7-2.8) mg/dL Total Bilirubin (0.2-1.0) mg/dL AST (10-42) IU/L ALT (10-60) IU/L Alkaline Phosphatase (42-121) IU/L Total Protein (6.7-8.2) g/dL Albumin (3.2-5.5) g/dL Globulin (2.1-4.2) g/dL Albumin/Globulin Ratio (1.0-2.2) Prealbumin (18-45) mg/dL Triglycerides ( - 149) mg/dL 07/21/18 07/21/18 07/21/18 Range/Units 05:05 05:05 05:05 WBC 9.7 (4.8-10.8) x10^3/uL RBC 3.88 L (4.20-5.40) 10^6/uL Hgb 12.5 (12.0-16.0) g/dL Hct 37.9 (37.0-47.0) % MCV 97.5 (81.0-99.0) fL MCH 32.2 H (27.0-31.0) pg MCHC 33.0 (32.0-36.0) g/dL RDW 13.7 (12.0-15.0) % Plt Count 148 (130-450) 10^3/uL MPV 8.5 (7.9-10.8) fL Neut # (Auto) 8.6 H (1.5-6.6) 10^3/uL Lymph # (Auto) 0.6 L (1.5-3.5) 10^3/uL [place] # (Auto) 0.5 (0.0-1.0) 10^3/uL Eos # (Auto) 0.0 (0.0-0.7) 10^3/uL Baso # (Auto) 0.0 (0.0-0.1) 10^3/uL Absolute Nucleated RBC 0.01 x10^3/uL Band Neuts % (Manual) Not Reportable Abnorm Lymph % (Manual) Not Reportable Nucleated RBC % 0.1 /100WBC Neutrophils # (Manual) Not Reportable Lymphocytes # (Manual) Not Reportable Monocytes # (Manual) Not Reportable Eosinophils # (Manual) Not Reportable Basophils # (Manual) Not Reportable Differential Comment MANUAL=AUTO DIFF Platelet Estimate NORMAL (130-450,000) (NORMAL) RBC Morph Micro Appear NORMAL APPEARANCE (NORMAL) Sodium 139 (135-145) mmol/L Potassium 3.9 (3.5-5.0) mmol/L Chloride 106 (101-111) mmol/L Carbon Dioxide 25 (21-32) mmol/L Anion Gap 8.0 (6-13) BUN 10 (6-20) mg/dL Creatinine 0.4 (0.4-1.0) mg/dL Estimated GFR (MDRD) 161 (>89) Glucose 202 H (70-100) mg/dL POC Whole Bld Glucose (70 - 100) mg/dL Glycated Hemoglobin (4.6-6.2) % Estim Average Glucose (70-100) Lactic Acid 0.9 (0.5-2.2) mmol/L Calcium 8.5 (8.5-10.3) mg/dL Phosphorus 3.8 (2.5-4.6) mg/dL Magnesium 1.7 (1.7-2.8) mg/dL Total Bilirubin 0.7 (0.2-1.0) mg/dL AST 33 (10-42) IU/L ALT 52 (10-60) IU/L Alkaline Phosphatase 75 (42-121) IU/L Total Protein 6.1 L (6.7-8.2) g/dL Albumin 3.1 L (3.2-5.5) g/dL Globulin 3.0 (2.1-4.2) g/dL Albumin/Globulin Ratio 1.0 (1.0-2.2) Prealbumin 6 L (18-45) mg/dL Triglycerides 222 H ( - 149) mg/dL 07/20/18 07/20/18 Range/Units 21:56 14:14 WBC (4.8-10.8) x10^3/uL RBC (4.20-5.40) 10^6/uL Hgb (12.0-16.0) g/dL Hct (37.0-47.0) % MCV (81.0-99.0) fL MCH (27.0-31.0) pg MCHC (32.0-36.0) g/dL RDW (12.0-15.0) % Plt Count (130-450) 10^3/uL MPV (7.9-10.8) fL Neut # (Auto) (1.5-6.6) 10^3/uL Lymph # (Auto) (1.5-3.5) 10^3/uL [place] # (Auto) (0.0-1.0) 10^3/uL Eos # (Auto) (0.0-0.7) 10^3/uL Baso # (Auto) (0.0-0.1) 10^3/uL Absolute Nucleated RBC x10^3/uL Band Neuts % (Manual) Abnorm Lymph % (Manual) Nucleated RBC % /100WBC Neutrophils # (Manual) Lymphocytes # (Manual) Monocytes # (Manual) Eosinophils # (Manual) Basophils # (Manual) Differential Comment Platelet Estimate (NORMAL) RBC Morph Micro Appear (NORMAL) Sodium (135-145) mmol/L Potassium (3.5-5.0) mmol/L Chloride (101-111) mmol/L Carbon Dioxide (21-32) mmol/L Anion Gap (6-13) BUN (6-20) mg/dL Creatinine (0.4-1.0) mg/dL Estimated GFR (MDRD) (>89) Glucose (70-100) mg/dL POC Whole Bld Glucose 161 H (70 - 100) mg/dL Glycated Hemoglobin 7.4 H (4.6-6.2) % Estim Average Glucose 166 H (70-100) Lactic Acid (0.5-2.2) mmol/L Calcium (8.5-10.3) mg/dL Phosphorus (2.5-4.6) mg/dL Magnesium (1.7-2.8) mg/dL Total Bilirubin (0.2-1.0) mg/dL AST (10-42) IU/L ALT (10-60) IU/L Alkaline Phosphatase (42-121) IU/L Total Protein (6.7-8.2) g/dL Albumin (3.2-5.5) g/dL Globulin (2.1-4.2) g/dL Albumin/Globulin Ratio (1.0-2.2) Prealbumin (18-45) mg/dL Triglycerides ( - 149) mg/dL ABX Reporting Has patient been on IV antibiotics over the past 48 hours?: No Sepsis Event Note (H) - Evaluation Current Stage of Sepsis: Ruled out Assessment/Plan - Problem List (1) Nausea vomiting and diarrhea Impression: - No solid food or substantial liquid intake since 07/13 (8 days prior to admission) - Dry heaves reported around 3AM today, but resolved with staff support and lorazepam - Reported much less stool today ~3 loose, but controllable - Abdominal pain, nausea are intermittent, and less often Plan: Continue lorazepam, lomotil, PPN, Octreotide SQ, and monitor for improvement (2) Dehydration Impression: - Reports of greater than 9 stools in one day prior to admission - Today only ~3 stools, less incontinence - C-diff was negative on 07/17/2018 - On exam, appearance of more hydration with less dry mucous membranes and skin appears less sunken and more supple Plan: Continue PPN, monitor labs, weights, and physical exam findings (3) Acute metabolic encephalopathy Impression: - Patient is having short term memory loss and word finding difficulties - Also noted by the patient's sister who is present for her admission exam - These symptoms have been improved today with a tearful episode when speaking of next steps in care with going home alone - Patient admits to confusion that has been worse in the past 24 hours - On exam, neuro intact Plan: Continue to monitor, fall precautions (4) Carcinoma of left breast Impression: - Left breast infiltrating ductal carcinoma, ER strongly positive, KY 75%, Ki-67 40%, HER-2 positive by IHC - Primary tumor is 3.5 cm at the 6 o'clock position, known left axillary lymph node metastases measuring 7 cm - Status post left breast biopsy Plan: Continue to treat acute symptoms, keep MAC clinic updated Qualifiers: Breast location: central portion of breast Estrogen receptor status: positive Patient sex: female Qualified Code(s): C50.112 - Malignant neoplasm of central portion of left female breast; Z17.0 - Estrogen receptor positive status [ER+] (5) Status post chemotherapy Impression: - Chemo with pertuzumab, trastuzumab, docetaxel and carboplatin every 21 days for 6 cycles - Not tolerating this first cycle very well as per Oncology notes Plan: Observation stay to control symptoms (6) Anxiety Impression: - Recently prescribed Lorazepam - Tearful during some topics related to prognosis estimates, financial situation, and what the future might hold - No improvement in symptoms on exam today Plan: Continue here, also providing anti-emetic effects (7) Vision loss, left eye Impression: - First noticed 3 days prior - Oncology mentioned it may be caused by Bentyl - On exam, no abnormal findings, + red reflex, no drainage - lid inflammation, flushed cheeks on exam left greater than right Plan: Fall precautions (8) Protein calorie malnutrition Impression: - recent weight loss, at least 10 lbs in the past 14 days - no solid food or oral intake that has protein since 07/13 - uncontrolled symptoms make taking in calories difficult Plan: Nutritional following to assist with starting PPN Qualifiers: Protein-calorie malnutrition severity: unspecified severity Qualified Code(s): E46 - Unspecified protein-calorie malnutrition (9) Thrush of mouth and esophagus Impression: - Treated with an anti-fungal outpatient given her inability to swallow comfortably - Now with neck swelling, lymphadenopathy, and a profoundly hoarse, sore throat - Also complaining of racquel-rectal soreness Plan: Diflucan daily, WCON consult for excoriated racquel-rectal skin (10) Hypomagnesemia Impression: - Magnesium was low while seen in the ED at 1.6 - Status post replacement - Now 1.7, likely from continued stools Plan: Give IV replacement via PPN, recheck labs (11) Essential hypertension Impression: - Home meds include an ARB and a beta van - B/P now 164/83 Plan: Resume when tolerating PO intake, monitor vital signs (12) Diabetes mellitus type 2, controlled Impression: - Metformin 500mg daily at home - Hg A1C is 7.4% - Blood sugars 128-191 since admission Plan: Increase Lantus 15 units, SSI and blood sugar checks, advanced to a soft, carb controlled diet with poor PO intake overall today Qualifiers: 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: without 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 use Diabetes mellitus complication detail: with nephropathy (13) Peripheral neuropathy Impression: - First diagnosed with DM ~ 10 years ago - Denies prior symptoms, only since starting chemo - BLE numbness and tingling - Takes gabapentin at home @ , now resumed - A1C is high at 7.4% today Plan: Continue meds, monitor for improvement Qualifiers: Peripheral neuropathy type: polyneuropathy associated with underlying disease Qualified Code(s): G63 - Polyneuropathy in diseases classified elsewhere (14) Major depressive disorder Impression: - Takes Zoloft at home, resumed today - Now on hold due to not toleration PO intake or pills Plan: Continue med (15) Hyperlipidemia associated with type 2 diabetes mellitus Impression: - Takes a statin at home - Now on hold due to poor oral intake and her intolerance to oral medications Plan: Resume when swallowing improves
[2018-07-21] MEDS ORDERED: INSULIN GLARGINE 300 UNIT/3 ML PEN SUBQ SCH ×2 (21:07→22:00)
[2018-07-21] MEDS: GABAPENTIN 300 MG CAPSULE PO SCH (22:12)
[2018-07-22] MEDS: PANTOPRAZOLE 40 MG TABLET PO SCH (06:37)
[2018-07-22] MEDS: OCTREOTIDE 100 MCG/ML VIAL SUBQ SCH ×3 (06:37→20:53)
[2018-07-22 06:50] LABS: BASOPHILS % (AUTO) 0.3 %; EOSINOPHILS % (AUTO) 0.1 %; HGB - HEMOGLOBIN 12.2 g/dL (12.0-16.0); LYMPHOCYTES % (AUTO) 7.6 %; MEAN CORPUSCULAR HEMOGLOBIN 31.9 pg (27.0-31.0); MEAN CORPUSCULAR HGB CONC 32.7 g/dL (32.0-36.0); MEAN CORPUSCULAR VOLUME 97.3 fL (81.0-99.0); MEAN PLATELET VOLUME 8.6 fL (7.9-10.8); MONOCYTES % (AUTO) 7.6 %; NEUTROPHILS % (AUTO) 84.4 %; PLT - PLATELET COUNT 157 10^3/uL (130-450); RED BLOOD COUNT 3.83 10^6/uL (4.20-5.40); RED CELL DISTRIBUTION WIDTH 13.3 % (12.0-15.0); WHITE BLOOD COUNT 11.1 x10^3/uL (4.8-10.8)
[2018-07-22] MEDS ORDERED: LOSARTAN 50 MG TABLET PO SCH (09:00)
[2018-07-22] MEDS ORDERED: ASPIRIN EC 81 MG TABLET PO SCH (09:00)
[2018-07-22 09:02] LABS: ABNORMAL LYMPHS % (MANUAL) 0 %
[2018-07-22 09:04] LABS: BAND NEUTROPHILS % (MANUAL) 4 %; LYMPHOCYTES # (MANUAL) 1.3 10^3/uL (1.5-3.5); LYMPHOCYTES % (MANUAL) 12 %; MONOCYTES # (MANUAL) 0.7 10^3/uL (0.0-1.0); NEUTROPHILS # (MANUAL) 9.1 10^3/uL (1.5-6.6); NEUTROPHILS % (MANUAL) 78 %
[2018-07-22 09:05] LABS: DIFFERENTIAL COMMENT MANUAL DIFFERENTIAL
[2018-07-22] MEDS: INSULIN ASPART 300 UNIT/3 ML PEN SUBQ SCH ×4 (10:07→20:56)
[2018-07-22] MEDS: SERTRALINE 50 MG TABLET PO SCH (10:59)
[2018-07-22] MEDS: METOPROLOL SUCCINATE 25 MG TABLET PO SCH ×2 (10:59→17:01)
[2018-07-22] MEDS: ENOXAPARIN 40 MG/0.4 ML SYRINGE SUBQ SCH (11:00)
[2018-07-22] MEDS: DIPHENOX/ATROPINE 2.5/0.025 MG TABLET PO PRN ×2 (11:00→21:52)
[2018-07-22] MEDS: SODIUM CHLORIDE FLUSH 0.9% 10 ML SYRINGE IVP SCH ×2 (11:01→19:05)
[2018-07-22] MEDS ORDERED: IOVERSOL 320 50 ML VIAL ONE (13:09)
[2018-07-22] MEDS ORDERED: IOVERSOL 320 100 ML VIAL IVP ONE (13:09)
[2018-07-22] MEDS: amLODIPine 5 MG TABLET PO SCH (14:00)
[2018-07-22] MEDS: SODIUM CHLORIDE FLUSH 0.9% 10 ML SYRINGE IVP PRN ×2 (14:06→19:05)
[2018-07-22] MEDS: PROCHLORPERAZINE 10 MG/2 ML VIAL IVP PRN (14:06)
--- NOTE | 2018-07-22 14:56 | XRAY Report ---
Reason: new PICC@R basilic Procedure Date: 07/22/2018 Accession Number: [id number] / [id number] Procedure: XR - Chest for Line Placement CPT Code: FULL RESULT: EXAM: CHEST RADIOGRAPHY EXAM DATE: 07/22/2018 01:51 PM. CLINICAL HISTORY: New PICC@R basilic. COMPARISON: CHEST 1 VIEW 07/20/2018 1:28 PM. TECHNIQUE: 1 view. FINDINGS: Lungs/Pleura: No focal opacities evident. No pleural effusion. No pneumothorax. Mediastinum: There is a new right upper extremity PICC line seen to the level of the mid SVC. There is a right-sided Port-A-Cath with tip also at mid SVC. Other: None. IMPRESSION: 1. New right PICC line tip at mid SVC, near level of right Port-A-Cath tip ANATOLYA
[2018-07-22] MEDS: POTASSIUM PHOSPHATE IV SCH ×5 (15:04)
[2018-07-22] MEDS: MAGNESIUM SULFATE IV SCH ×5 (15:04)
[2018-07-22] MEDS: MULTIVITAMIN IV SCH ×5 (15:04)
[2018-07-22] MEDS: [UNRECOGNIZED DRUG - OTHER] IV SCH ×5 (15:04)
--- NOTE | 2018-07-22 18:09 | CT Report ---
Reason: evaluate for colitis, abdominal pain Procedure Date: 07/22/2018 Accession Number: [id number] / [id number] Procedure: CT - Abdomen/Pelvis W CPT Code: FULL RESULT: EXAM: CT ABDOMEN AND PELVIS EXAM DATE: 07/22/2018 05:01 PM. CLINICAL HISTORY: Evaluate for colitis, abdominal pain. COMPARISONS: ABDOMEN/PELVIS W/ 07/17/2018 3:30 PM ABDOMEN/PELVIS W/ 07/07/2018 10:45 AM. TECHNIQUE: Routine helical CT imaging was performed through the abdomen and pelvis. IV contrast: 100 cc Optiray 320 IV. Enteric contrast: Yes. Reconstructions: Coronal and sagittal. In accordance with CT protocol optimization, one or more of the following dose reduction techniques were utilized for this exam: automated exposure control, adjustment of mA and/or KV based on patient size, or use of iterative reconstructive technique. FINDINGS: Lung Bases: Unremarkable. Liver: The liver parenchyma is low in density. No focal liver lesion or intrahepatic biliary dilatation. Gallbladder/Bile Ducts: There are multiple tiny gallstones in the gallbladder. No biliary dilatation. No focal inflammation around the gallbladder. Spleen: Normal. Pancreas: Normal. Adrenal Glands: Normal. Kidneys: There is a 16 mm cyst in the left kidney. Kidneys appear otherwise normal. Peritoneal Cavity/Bowel: Normal. No free fluid, free air or adenopathy. No masses or acute inflammatory process. Pelvic Organs: Urinary bladder is empty. Uterus is anteverted. Ovaries are normal in size. Vasculature: There is mild atherosclerotic vascular calcification without aneurysm. Bones: There is degenerative disease of both hip joints. Other: None. IMPRESSION: 1. No CT findings of colitis. 2. Gallstones without CT features of acute cholecystitis. 3. Steatosis of the liver. RADIA
[2018-07-22] MEDS: TPN (CLINIMIX E 5/15) 2,000 ML with MULTIVITAMIN 10 ML, TRACE ELEMENTS V CONC 1 ML, MAG... IV SCH ×4 (19:05)
[2018-07-22] MEDS: FAT EMULSION 20% 250 ML IV SCH (19:06)
[2018-07-22] MEDS: GABAPENTIN 300 MG CAPSULE PO SCH ×2 (20:53→22:07)
[2018-07-22] MEDS: FLUCONAZOLE 100 MG TABLET PO SCH ×2 (20:53→22:07)
[2018-07-22] MEDS: ASPIRIN EC 81 MG TABLET PO SCH ×2 (20:53→22:07)
[2018-07-22] MEDS: INSULIN GLARGINE 300 UNIT/3 ML PEN SUBQ SCH (20:56)
[2018-07-22] MEDS: LORazepam 0.5 MG TABLET PO PRN (21:52)
[2018-07-23] MEDS: LORazepam 0.5 MG TABLET PO PRN ×3 (05:05→18:16)
[2018-07-23] MEDS: SODIUM CHLORIDE FLUSH 0.9% 10 ML SYRINGE IVP SCH ×3 (05:10→19:19)
[2018-07-23] MEDS: OCTREOTIDE 100 MCG/ML VIAL SUBQ SCH ×3 (06:45→21:21)
[2018-07-23] MEDS: PANTOPRAZOLE 40 MG TABLET PO SCH (06:45)
[2018-07-23 08:01] LABS: ALBUMIN 3.3 g/dL (3.2-5.5); ALBUMIN/GLOBULIN RATIO 1.1 (1.0-2.2); BILIRUBIN,TOTAL 0.6 mg/dL (0.2-1.0); CALCIUM 8.3 mg/dL (8.5-10.3); CREATININE 0.5 mg/dL (0.4-1.0); MAGNESIUM 1.7 mg/dL (1.7-2.8); PHOSPHORUS 3.7 mg/dL (2.5-4.6); TOTAL PROTEIN 6.3 g/dL (6.7-8.2)
[2018-07-23] MEDS: INSULIN ASPART 300 UNIT/3 ML PEN SUBQ SCH ×4 (08:20→21:02)
--- NOTE | 2018-07-23 08:23 | PROVIDER PROGRESS NOTE ---
Subjective - Prog Note Date Prog Note Date: 07/22/18 Prog Note Time: 08:00 - Subjective Pt reports feeling: Improved Subjective: Kristie continues to have uncontrolled diarrhea, racquel-rectal irritation, intermittent nausea and is not tolerating any food as she has impaired swallowing and quickly becomes very full after just a few mouthfulls. She denies chest pain, bleeding, emesis, a rash, or new shortness of breath. Current Medications - Current Medications Current Medications: Active Medications: Acetaminophen (Tylenol) 650 mg PO Q4HR PRN Amlodipine Besylate (Norvasc) 5 mg PO DAILY [facility] Aspirin (Ecotrin) 81 mg PO QPM [facility] Carboxymethylcellulose (Refresh 1% Ophth Drops) 1 drops EACHEYE PRN PRN Diphenoxylate HCl/Atropine (Lomotil) 1 tab PO QID PRN Enoxaparin Sodium (Lovenox) 40 mg SUBQ DAILY [facility] Fluconazole (Diflucan) 200 mg PO QPM [facility] Gabapentin (Neurontin) 300 mg PO QPM [facility] Hydromorphone HCl (Dilaudid Inj Carp) 1 mg IVP Q2HR PRN Acetaminophen (Ofirmev) 100 mls @ 400 mls/hr IV Q6HR PRN Multivitamins 10 ml/ Chromium/Copper/Manganese/Seleni/Zn 1 ml/ Magnesium Sulfate 1 gm/Amino Ac/Electrol/Dextrose/Calcium 2,013 mls @ 83 mls/hr IV Q24H [facility]; Protocol Last Infusion: 07/23/18 01:00 Dose: 83 mls/hr Fat Emulsion Intravenous (Intralipid 20%) 250 mls @ 16 mls/hr IV Q24H [facility] Insulin Aspart (Novolog) 1 - 5 unit SUBQ 0800,1200,1700,2100 [facility]; Protocol Insulin Glargine (Lantus Solostar) 15 unit SUBQ QPM [facility] Lorazepam (Ativan) 0.5 mg PO Q4H PRN Metoprolol Succinate (Toprol Xl) 12.5 mg PO BIDWM [facility] Multi-Ingred Cream/Lotion/Oil/Oint (Lubrifresh Pm Ophth Oint) 1 applic EACHEYE QPM PRN Octreotide Acetate (Sandostatin) 50 mcg SUBQ TID [facility] Ondansetron HCl (Zofran Inj) 4 mg IVP Q6HR PRN Pantoprazole Sodium (Protonix) 40 mg PO QDAC [facility] Phenol/Menthol (Chloraseptic) 2 sprays MM Q2HR PRN Prochlorperazine Edisylate (Compazine Inj) 10 mg IVP Q6HR PRN Promethazine HCl (Phenergan Supp) 25 mg DC Q6H PRN Sertraline HCl (Zoloft) 100 mg PO DAILY [facility] Temazepam (Restoril) 15 mg PO QPM PRN Throat Lozenges (Cepacol) 1 lozenge MM Q2HR PRN Vitamin A/Vitamin D (Vitamin A & D Ointment) 1 applic TOP TID PRN Wheat Dextrin (Benefiber) 1 packet PO DAILY PRN HOME meds: Diclofenac Sodium Dr [Voltaren] 75 mg PO BID 06/27/18 Gabapentin 300 mg PO QPM 06/27/18 Metoprolol Tartrate 50 mg PO BID 06/27/18 Sertraline HCl 100 mg PO DAILY 06/27/18 Simvastatin 20 mg PO QPM 06/27/18 clonazePAM [Clonazepam] 0.5 mg ORAL BID PRN 06/27/18 metFORMIN [Glucophage] 500 mg PO DAILYWM 06/27/18 Aspirin [Aspirin EC] 81 mg PO DAILY 06/29/18 Dexamethasone [Decadron] 4 mg PO BIDWM 07/11/18 Dicyclomine HCl 20 mg PO Q6H PRN 07/18/18 LORazepam [Lorazepam] 0.5 mg PO Q6H PRN 07/18/18 Prochlorperazine [Compazine] 10 mg PO Q6H 07/18/18 Diphenoxylate/Atropine [Lomotil] 1 tab PO QID PRN 07/20/18 Fluconazole 100 mg PO DAILY 07/20/18 Valsartan 80 mg PO DAILY 07/20/18 Objective - Vital Signs/Intake & Output Reviewed Vital Signs: Yes Vital Signs: Vital Signs x48h Temp Pulse Resp BP BP Pulse Ox 07/23/18 07:28 36.5 C 66 16 152/90 H 96 07/23/18 05:00 36.9 C 62 15 163/68 H 98 07/23/18 00:40 36.3 C L 64 15 156/89 H 97 Intake & Output: Intake & Output 07/20/18 07/21/18 07/22/1807/23/19 23:59 23:59 23:59 23:59 Intake Total 1384 3480.6337 190 595.833 Output Total 150 2850 1870 200 Balance 4799 268.6868 395.833 - Objective General Appearance: positive: Alert, Mild distress Eyes Bilateral: positive: PERRL Eyes: OU Conjunctivae pale ENT: positive: Pharyngeal erythema, Oral lesions Neck: positive: Thyroid nml, No JVD, Trachea midline, Lymphadenopathy (R), Lymphadenopathy (L), Stiff neck Respiratory: positive: Chest non-tender, No respiratory distress, Breath sounds nml Cardiovascular: positive: Regular rate & rhythm, No gallop, Systolic murmur, Decreased pulse(s) Peripheral Pulses: 1+ Radial (R), 1+ Radial (L) Abdomen: positive: Nml bowel sounds, Tenderness, Guarding, Hepatomegaly, Other (rounded, soft) Back: positive: Nml inspection Skin: positive: No rash, Warm, Dry, Other (bronze, flushed cheeks) Extremities: positive: Non-tender, Full ROM, Pedal edema, Joint swelling Neurologic/Psychiatric: positive: Oriented x3, CN's nml (2-12), Motor nml, Sensation nml, Depressed mood/affect, Other (tearful at times) Reflexes: Bicep (R): 3+, Bicep (L): 3+ - Lab Results Fish Bones: 07/24/18 05:55 07/23/18 07:32 Other Labs: Lab Results x24hrs 07/23/18 07/23/18 07/22/18 Range/Units 07:32 07:32 20:54 WBC (4.8-10.8) x10^3/uL RBC (4.20-5.40) 10^6/uL Hgb (12.0-16.0) g/dL Hct (37.0-47.0) % MCV (81.0-99.0) fL MCH (27.0-31.0) pg MCHC (32.0-36.0) g/dL RDW (12.0-15.0) % Plt Count (130-450) 10^3/uL MPV (7.9-10.8) fL Neut # (Auto) Lymph # (Auto) Liberty # (Auto) Eos # (Auto) Baso # (Auto) Absolute Nucleated RBC Total Counted Band Neuts % (Manual) (0 - 10) % Abnorm Lymph % (Manual) % Nucleated RBC % Neutrophils # (Manual) (1.5-6.6) 10^3/uL Lymphocytes # (Manual) (1.5-3.5) 10^3/uL Monocytes # (Manual) (0.0-1.0) 10^3/uL Eosinophils # (Manual) (0-0.7) 10^3/uL Basophils # (Manual) (0-0.1) 10^3/uL Differential Comment Manual Slide Review Sodium 137 (135-145) mmol/L Potassium 3.5 (3.5-5.0) mmol/L Chloride 104 (101-111) mmol/L Carbon Dioxide 27 (21-32) mmol/L Anion Gap 6.0 (6-13) BUN 20 (6-20) mg/dL Creatinine 0.5 (0.4-1.0) mg/dL Estimated GFR (MDRD) 125 (>89) Glucose 124 H (70-100) mg/dL POC Whole Bld Glucose 115 H 194 H (70 - 100) mg/dL Calcium 8.3 L (8.5-10.3) mg/dL Phosphorus 3.7 (2.5-4.6) mg/dL Magnesium 1.7 (1.7-2.8) mg/dL Total Bilirubin 0.6 (0.2-1.0) mg/dL AST 48 H (10-42) IU/L ALT 59 (10-60) IU/L Alkaline Phosphatase 83 (42-121) IU/L Total Protein 6.3 L (6.7-8.2) g/dL Albumin 3.3 (3.2-5.5) g/dL Globulin 3.0 (2.1-4.2) g/dL Albumin/Globulin Ratio 1.1 (1.0-2.2) Prealbumin 10 L (18-45) mg/dL Triglycerides 200 H ( - 149) mg/dL 07/22/18 07/22/18 07/22/18 Range/Units 16:25 11:06 06:25 WBC 11.1 H (4.8-10.8) x10^3/uL RBC 3.83 L (4.20-5.40) 10^6/uL Hgb 12.2 (12.0-16.0) g/dL Hct 37.3 (37.0-47.0) % MCV 97.3 (81.0-99.0) fL MCH 31.9 H (27.0-31.0) pg MCHC 32.7 (32.0-36.0) g/dL RDW 13.3 (12.0-15.0) % Plt Count 157 (130-450) 10^3/uL MPV 8.6 (7.9-10.8) fL Neut # (Auto) Not Reportable Lymph # (Auto) Not Reportable Liberty # (Auto) Not Reportable Eos # (Auto) Not Reportable Baso # (Auto) Not Reportable Absolute Nucleated RBC Not Reportable Total Counted 100 Band Neuts % (Manual) 4 (0 - 10) % Abnorm Lymph % (Manual) 0 % Nucleated RBC % Not Reportable Neutrophils # (Manual) 9.1 H (1.5-6.6) 10^3/uL Lymphocytes # (Manual) 1.3 L (1.5-3.5) 10^3/uL Monocytes # (Manual) 0.7 (0.0-1.0) 10^3/uL Eosinophils # (Manual) 0.0 (0-0.7) 10^3/uL Basophils # (Manual) 0.0 (0-0.1) 10^3/uL Differential Comment MANUAL DIFFERENTIAL Manual Slide Review Indicated Sodium (135-145) mmol/L Potassium (3.5-5.0) mmol/L Chloride (101-111) mmol/L Carbon Dioxide (21-32) mmol/L Anion Gap (6-13) BUN (6-20) mg/dL Creatinine (0.4-1.0) mg/dL Estimated GFR (MDRD) (>89) Glucose (70-100) mg/dL POC Whole Bld Glucose 114 H 173 H (70 - 100) mg/dL Calcium (8.5-10.3) mg/dL Phosphorus (2.5-4.6) mg/dL Magnesium (1.7-2.8) mg/dL Total Bilirubin (0.2-1.0) mg/dL AST (10-42) IU/L ALT (10-60) IU/L Alkaline Phosphatase (42-121) IU/L Total Protein (6.7-8.2) g/dL Albumin (3.2-5.5) g/dL Globulin (2.1-4.2) g/dL Albumin/Globulin Ratio (1.0-2.2) Prealbumin (18-45) mg/dL Triglycerides ( - 149) mg/dL ABX Reporting Has patient been on IV antibiotics over the past 48 hours?: No Sepsis Event Note (H) - Evaluation Current Stage of Sepsis: Ruled out Assessment/Plan - Problem List (1) Nausea vomiting and diarrhea Impression: - No solid food or substantial liquid intake since 07/13 (8 days prior to admission) - Dry heaves reported around 3AM today, but resolved with staff support and lorazepam - Reported less incontinence - Now with diarrhea shortly after consuming her meals, no stools during the night - Abdominal pain, nausea are intermittent, and less often Plan: Continue lorazepam, lomotil, PPN, Octreotide SQ, and monitor for improvement (2) Dehydration Impression: - Reports of greater than 9 stools in one day prior to admission - Today only ~3 stools, less incontinence - C-diff was negative on 07/17/2018 - On exam, appearance of more hydration with less dry mucous membranes and skin appears less sunken and more supple Plan: Continue PPN, monitor labs, weights, and physical exam findings (3) Acute metabolic encephalopathy Impression: - Patient is having short term memory loss and word finding difficulties - Also noted by the patient's sister who was present for her admission exam, and one day later - These symptoms have been improved with a tearfullness when speaking of next steps in care with going home alone - Patient admits to confusion that had gotten worse in the 24 hours leading up t o her admission, now resolved - On exam, neuro intact, only with continued vision loss and numbness and tingling to her BLEs Plan: Continue to monitor, fall precautions (4) Carcinoma of left breast Impression: - Left breast infiltrating ductal carcinoma, ER strongly positive, DC 75%, Ki-67 40%, HER-2 positive by IHC - Primary tumor is 3.5 cm at the 6 o'clock position, known left axillary lymph node metastases measuring 7 cm - Status post left breast biopsy Plan: Continue to treat acute symptoms, keep MAC clinic updated Qualifiers: Breast location: central portion of breast Estrogen receptor status: positive Patient sex: female Qualified Code(s): C50.112 - Malignant neoplasm of central portion of left female breast; Z17.0 - Estrogen receptor positive status [ER+] (5) Status post chemotherapy Impression: - Chemo with pertuzumab, trastuzumab, docetaxel and carboplatin every 21 days for 6 cycles - Not tolerating this first cycle very well as per Oncology notes Plan: Continue to control control symptoms (6) Anxiety Impression: - Recently prescribed Lorazepam, which continues here - Anxiety remains one of her primary complaints on exam - Tearful during some topics related to prognosis estimates, financial situation, and what the future might hold - No improvement in symptoms on exam today - Waxes and wanes depending on the time of day and her perception of support - Saturnino, her sister has returned to her home in [place] Plan: Continue here, also providing anti-emetic effects (7) Vision loss, left eye Impression: - First noticed 3 days prior to admission - Oncology mentioned it may be caused by Bentyl, which has not been given on this hospital stay - On exam, no abnormal findings, + red reflex, no drainage - lid inflammation is resolved, flushed cheeks on exam left greater than right remain - Continues to complain of blurred vision and has trouble reading small print or seeing the TV Plan: Fall precautions, no driving (8) Protein calorie malnutrition Impression: - recent weight loss, at least 10 lbs in the past 14 days - no solid food or oral intake that has protein since 07/13 - uncontrolled symptoms make taking in calories difficult - PICC line ordered to transition from PPN to TPN - Poor veins leading to a line replacement - Appears better hydrated and with better nutrition as compared to admission Plan: Nutritional following to assist with TPN Qualifiers: Protein-calorie malnutrition severity: unspecified severity Qualified Code(s): E46 - Unspecified protein-calorie malnutrition (9) Thrush of mouth and esophagus Impression: - Treated with an anti-fungal outpatient given her inability to swallow comfortably - Now with neck swelling, lymphadenopathy, and a profoundly hoarse, sore throat- improved today - Also complaining of racquel-rectal soreness- also improved today - Continues on oral diflucan since admission Plan: Diflucan daily, WCON consult for excoriated racquel-rectal skin (10) Hypomagnesemia Impression: - Magnesium was low while seen in the ED at 1.6 - Status post replacement - Now 1.7, likely from continued stools and lack of nutrition/ impaired absorption Plan: Give IV replacement via TPN, recheck labs (11) Essential hypertension Impression: - Home meds include an ARB and a beta van - We do not carry Valsartan, so Losartan was prescribed, but the patient is opposed to this since watching TV about "cancer causing pill" - Start Norvasc today for continued HTN - B/P now 164/83 - Complaints of dull headaches Plan: Start Norvasc, monitor vital signs (12) Diabetes mellitus type 2, controlled Impression: - Metformin 500mg daily at home - Hg A1C is 7.4% - Blood sugars 191-230 since admission Plan: Continue Lantus 15 units, SSI and blood sugar checks, advanced to a soft, carb controlled diet with poor PO that continues since admission Qualifiers: 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: without mcfp use Diabetes mellitus complication detail: with nephropathy (13) Peripheral neuropathy Impression: - First diagnosed with DM ~ 10 years ago - Denies prior symptoms, only since starting chemo - BLE numbness and tingling - Takes gabapentin at home @ , now resumed - A1C is high at 7.4% Plan: Continue meds, monitor for improvement Qualifiers: Peripheral neuropathy type: polyneuropathy associated with underlying disease Qualified Code(s): G63 - Polyneuropathy in diseases classified elsewhere (14) Major depressive disorder Impression: - Takes Zoloft at home - Now resumed - Anxiety is her primary complaint Plan: Continue med (15) Hyperlipidemia associated with type 2 diabetes mellitus Impression: - Takes a statin at home - Now resumed Plan: Continue med
[2018-07-23] MEDS: ENOXAPARIN 40 MG/0.4 ML SYRINGE SUBQ SCH (09:33)
[2018-07-23] MEDS: amLODIPine 5 MG TABLET PO SCH (09:34)
[2018-07-23] MEDS: METOPROLOL SUCCINATE 25 MG TABLET PO SCH ×2 (09:34→18:16)
[2018-07-23] MEDS: SERTRALINE 50 MG TABLET PO SCH (09:34)
[2018-07-23] MEDS: TPN (CLINIMIX E 5/15) 2,000 ML with MULTIVITAMIN 10 ML, TRACE ELEMENTS V CONC 1 ML, MAG... IV SCH ×4 (19:18)
[2018-07-23] MEDS: FAT EMULSION 20% 250 ML IV SCH (19:19)
[2018-07-23] MEDS: ASPIRIN EC 81 MG TABLET PO SCH (21:21)
[2018-07-23] MEDS: INSULIN GLARGINE 300 UNIT/3 ML PEN SUBQ SCH (21:21)
[2018-07-23] MEDS: FLUCONAZOLE 100 MG TABLET PO SCH (21:21)
--- NOTE | 2018-07-23 22:03 | PROVIDER PROGRESS NOTE ---
Subjective - Prog Note Date Prog Note Date: 07/23/18 Prog Note Time: 17:00 - Subjective Pt reports feeling: Improved Subjective: Kristie complains of ongoing anxiety, difficulty sleeping, and states that after she swallows even one bite of food, she immediately becomes nauseated and has to take several minutes to get to where she can take the next bite. She denies chest pain, emesis, a new rash, or a new cough. She has ongoing dizziness with position changes, diarrhea, and irritated skin from incontinence. Current Medications - Current Medications Current Medications: Active Medications: Acetaminophen (Tylenol) 650 mg PO Q4HR PRN Amlodipine Besylate (Norvasc) 5 mg PO DAILY JAY Aspirin (Ecotrin) 81 mg PO QPM [facility] Carboxymethylcellulose (Refresh 1% Ophth Drops) 1 drops EACHEYE PRN PRN Diphenoxylate HCl/Atropine (Lomotil) 1 tab PO QID PRN Enoxaparin Sodium (Lovenox) 40 mg SUBQ DAILY JAY Fluconazole (Diflucan) 200 mg PO QPM [facility] Fluticasone Propionate (Flonase) 1 sprays FÁTIMA DAILY [facility] Gabapentin (Neurontin) 300 mg PO QPM [facility] Hydromorphone HCl (Dilaudid Inj Carp) 1 mg IVP Q2HR PRN Acetaminophen (Ofirmev) 100 mls @ 400 mls/hr IV Q6HR PRN Multivitamins 10 ml/ Chromium/Copper/Manganese/Seleni/Zn 1 ml/ Magnesium Sulfate 1 gm/Amino Ac/Electrol/Dextrose/Calcium 2,013 mls @ 83 mls/hr IV Q24H JAY; Protocol Fat Emulsion Intravenous (Intralipid 20%) 250 mls @ 16 mls/hr IV Q24H JAY Insulin Aspart (Novolog) 1 - 5 unit SUBQ 0800,1200,1700,2100 JAY; Protocol Insulin Glargine (Lantus Solostar) 15 unit SUBQ QPM JAY Lorazepam (Ativan) 0.5 mg PO Q4H PRN Metoprolol Succinate (Toprol Xl) 12.5 mg PO BIDWM [facility] Multi-Ingred Cream/Lotion/Oil/Oint (Lubrifresh Pm Ophth Oint) 1 applic EACHEYE QPM PRN Octreotide Acetate (Sandostatin) 50 mcg SUBQ TID JAY Ondansetron HCl (Zofran Inj) 4 mg IVP Q6HR PRN Oxymetazoline HCl (Afrin) 1 sprays FÁTIMA BID JAY Pantoprazole Sodium (Protonix) 40 mg PO QDAC JAY Phenol/Menthol (Chloraseptic) 2 sprays MM Q2HR PRN Prochlorperazine Edisylate (Compazine Inj) 10 mg IVP Q6HR PRN Promethazine HCl (Phenergan Supp) 25 mg MI Q6H PRN Sertraline HCl (Zoloft) 100 mg PO DAILY JAY Sodium Chloride (Camuy) 1 sprays FÁTIMA Q4HR PRN Temazepam (Restoril) 15 mg PO QPM PRN Throat Lozenges (Cepacol) 1 lozenge MM Q2HR PRN Vitamin A/Vitamin D (Vitamin A & D Ointment) 1 applic TOP TID PRN Wheat Dextrin (Benefiber) 1 packet PO DAILY PRN HOME meds: Diclofenac Sodium Dr [Voltaren] 75 mg PO BID 06/27/18 Gabapentin 300 mg PO QPM 06/27/18 Metoprolol Tartrate 50 mg PO BID 06/27/18 Sertraline HCl 100 mg PO DAILY 06/27/18 Simvastatin 20 mg PO QPM 06/27/18 clonazePAM [Clonazepam] 0.5 mg ORAL BID PRN 06/27/18 metFORMIN [Glucophage] 500 mg PO DAILYWM 06/27/18 Aspirin [Aspirin EC] 81 mg PO DAILY 06/29/18 Dexamethasone [Decadron] 4 mg PO BIDWM 07/11/18 Dicyclomine HCl 20 mg PO Q6H PRN 07/18/18 LORazepam [Lorazepam] 0.5 mg PO Q6H PRN 07/18/18 Prochlorperazine [Compazine] 10 mg PO Q6H 07/18/18 Diphenoxylate/Atropine [Lomotil] 1 tab PO QID PRN 07/20/18 Fluconazole 100 mg PO DAILY 07/20/18 Valsartan 80 mg PO DAILY 07/20/18 Objective - Vital Signs/Intake & Output Reviewed Vital Signs: Yes Vital Signs: Vital Signs x48h Temp Pulse Resp BP Pulse Ox 07/23/18 15:41 37.1 C 68 18 151/90 H 91 L 07/23/18 14:16 36.6 C 58 L 16 150/79 H 94 Intake & Output: Intake & Output 07/20/18 07/21/18 07/22/18 07/23/18 23:59 23:59 23:59 23:59 Intake Total 1384 3480.6337 190.1996 3185.000 Output Total 150 2850 1870 1050 Balance 4675 061.4119 2135.000 - Objective General Appearance: positive: No acute distress, Alert Eyes Bilateral: positive: PERRL Eyes: OU Lid inflammation (left greater than right) ENT: positive: Pharyngeal erythema, Dry mucous membranes Neck: positive: No JVD, Trachea midline, Lymphadenopathy (R), Lymphadenopathy (L), Stiff neck Respiratory: positive: Chest non-tender, No respiratory distress, Breath sounds nml Cardiovascular: positive: Regular rate & rhythm, No gallop, Systolic murmur Peripheral Pulses: 1+ Radial (R), 1+ Radial (L) Abdomen: positive: Tenderness, Guarding, Hepatomegaly, Other (rounded, soft) Back: positive: Nml inspection Skin: positive: No rash, Warm, Dry, Other (bronze) Extremities: positive: Non-tender, Pedal edema, Joint swelling Neurologic/Psychiatric: positive: Oriented x3, CN's nml (2-12), Motor nml, Sensation nml, Depressed mood/affect Reflexes: Bicep (R): 3+, Bicep (L): 3+ - Lab Results Fish Bones: 07/24/18 05:55 07/23/18 07:32 Other Labs: Lab Results x24hrs 07/23/18 07/23/18 07/23/18 Range/Units 20:51 17:57 11:12 Sodium (135-145) mmol/L Potassium (3.5-5.0) mmol/L Chloride (101-111) mmol/L Carbon Dioxide (21-32) mmol/L Anion Gap (6-13) BUN (6-20) mg/dL Creatinine (0.4-1.0) mg/dL Estimated GFR (MDRD) (>89) Glucose (70-100) mg/dL POC Whole Bld Glucose 134 H 169 H 154 H (70 - 100) mg/dL Calcium (8.5-10.3) mg/dL Phosphorus (2.5-4.6) mg/dL Magnesium (1.7-2.8) mg/dL Total Bilirubin (0.2-1.0) mg/dL AST (10-42) IU/L ALT (10-60) IU/L Alkaline Phosphatase (42-121) IU/L Total Protein (6.7-8.2) g/dL Albumin (3.2-5.5) g/dL Globulin (2.1-4.2) g/dL Albumin/Globulin Ratio (1.0-2.2) Prealbumin (18-45) mg/dL Triglycerides ( - 149) mg/dL 07/23/18 07/23/18 Range/Units 07:32 07:32 Sodium 137 (135-145) mmol/L Potassium 3.5 (3.5-5.0) mmol/L Chloride 104 (101-111) mmol/L Carbon Dioxide 27 (21-32) mmol/L Anion Gap 6.0 (6-13) BUN 20 (6-20) mg/dL Creatinine 0.5 (0.4-1.0) mg/dL Estimated GFR (MDRD) 125 (>89) Glucose 124 H (70-100) mg/dL POC Whole Bld Glucose 115 H (70 - 100) mg/dL Calcium 8.3 L (8.5-10.3) mg/dL Phosphorus 3.7 (2.5-4.6) mg/dL Magnesium 1.7 (1.7-2.8) mg/dL Total Bilirubin 0.6 (0.2-1.0) mg/dL AST 48 H (10-42) IU/L ALT 59 (10-60) IU/L Alkaline Phosphatase 83 (42-121) IU/L Total Protein 6.3 L (6.7-8.2) g/dL Albumin 3.3 (3.2-5.5) g/dL Globulin 3.0 (2.1-4.2) g/dL Albumin/Globulin Ratio 1.1 (1.0-2.2) Prealbumin 10 L (18-45) mg/dL Triglycerides 200 H ( - 149) mg/dL ABX Reporting Has patient been on IV antibiotics over the past 48 hours?: No Sepsis Event Note (H) - Evaluation Current Stage of Sepsis: Ruled out Assessment/Plan - Problem List (1) Nausea vomiting and diarrhea Impression: - No solid food or substantial liquid intake since 07/13 (8 days prior to a dmission) - Dry heaves and her panic attack episodes are not resolved - Reported less incontinence - Now with diarrhea shortly after consuming her meals, no stools during the night - Abdominal pain, nausea are intermittent and become worse with meals - Patient notes an improvement to her excoriated racquel-rectal region Plan: Continue lorazepam, lomotil, PPN, Octreotide SQ, and monitor for improvement (2) Dehydration Impression: - Reports of greater than 9 stools in one day prior to admission - Today only 3-4 stools, less incontinence - C-diff was negative on 07/17/2018 - Improvement of overall hydration status compared to admission exam - On exam, appearance of more hydration with less dry mucous membranes and skin appears less sunken and more supple Plan: Continue TPN, monitor labs, weights, and physical exam findings (3) Acute metabolic encephalopathy Impression: - Patient is having short term memory loss and word finding difficulties - Also noted by the patient's sister who was present for her admission exam, and one day later - These symptoms have been improved with a tearfullness when speaking of next steps in care with going home alone - Patient admits to confusion that had gotten worse in the 24 hours leading up to her admission, now resolved - On exam, neuro intact, only with continued vision loss and numbness and tingling to her BLEs Plan: Continue to monitor, fall precautions (4) Carcinoma of left breast Impression: - Left breast infiltrating ductal carcinoma, ER strongly positive, MI 75%, Ki-67 40%, HER-2 positive by IHC - Primary tumor is 3.5 cm at the 6 o'clock position, known left axillary lymph node metastases measuring 7 cm - Status post left breast biopsy - Biopsy site appears more open than when first examined on admission, but still intact without drainage Plan: Continue to treat acute symptoms, keep MAC clinic updated Qualifiers: Breast location: central portion of breast Estrogen receptor status: positive Patient sex: female Qualified Code(s): C50.112 - Malignant neoplasm of central portion of left female breast; Z17.0 - Estrogen receptor positive status [ER+] (5) Status post chemotherapy Impression: - Chemo with pertuzumab, trastuzumab, docetaxel and carboplatin every 21 days for 6 cycles - Not tolerating this first cycle very well as per Oncology notes - Plans to continue chemo (altered) by next week per oncology Plan: Continue to control control symptoms (6) Anxiety Impression: - Recently prescribed Lorazepam, which continues here - Anxiety remains one of her primary complaints on exam - Tearful during some topics related to prognosis estimates, financial situation, and what the future might hold - No improvement in symptoms on exam today, in fact becomes more easily tearful and fearful of plans for home - Waxes and wanes depending on the time of day and her perception of support - Saturnino, her sister has returned to her home in [place] Plan: Continue here, also providing anti-emetic effects (7) Vision loss, left eye Impression: - First noticed 3 days prior to admission - Oncology mentioned it may be caused by Bentyl, which has not been given on this hospital stay - On exam, no abnormal findings, + red reflex, no drainage - lid inflammation is resolved, flushed cheeks on exam left greater than right remain - Continues to complain of blurred vision and has trouble reading small print or seeing the TV Plan: Fall precautions, no driving (8) Protein calorie malnutrition Impression: - recent weight loss, at least 10 lbs in the past 14 days - no solid food or oral intake that has protein since 07/13 - uncontrolled symptoms make taking in calories difficult - PICC line ordered to transition from PPN to TPN - Poor veins leading to a line replacement - Appears better hydrated and with better nutrition as compared to admission - Weight continues to trend downward since admission ~ 5kg down since admit Plan: Nutritional following to assist with TPN Qualifiers: Protein-calorie malnutrition severity: unspecified severity Qualified Code(s): E46 - Unspecified protein-calorie malnutrition (9) Thrush of mouth and esophagus Impression: - Treated with an anti-fungal outpatient given her inability to swallow comfortably - Now with neck swelling, lymphadenopathy, and a profoundly hoarse, sore throat- improved today - Also complaining of racquel-rectal soreness- also improved today - Continues on oral diflucan since admission Plan: Diflucan daily, WCON consult for excoriated racquel-rectal skin (10) Hypomagnesemia Impression: - Magnesium was low while seen in the ED at 1.6 - Status post replacement - Now 1.7, likely from continued stools and lack of nutrition/ impaired absorption Plan: Give IV replacement via TPN, recheck labs (11) Essential hypertension Impression: - Home meds include an ARB and a beta van - We do not carry Valsartan, so Losartan was prescribed, but the patient is opposed to this since watching TV about "cancer causing pill" - Started on Norvasc for continued HTN - B/P now 151/90 - Complaints of dull headaches Plan: Continue Norvasc, monitor vital sign (12) Diabetes mellitus type 2, controlled Impression: - Metformin 500mg daily at home - Hg A1C is 7.4% - Blood sugars 134-161 since admission Plan: Continue Lantus 15 units, SSI and blood sugar checks, advanced to a soft, carb controlled diet with poor PO that continues since admission Qualifiers: Diabetes mellitus half-way insulin use: without long term care phlebotomist use Diabetes mellitus complication detail: with nephropathy (13) Peripheral neuropathy Impression: - First diagnosed with DM ~ 10 years ago - Denies prior symptoms, only since starting chemo - BLE numbness and tingling continues to BLEs, worse since starting chemo - Takes gabapentin at home @ , now resumed - A1C is high at 7.4% Plan: Continue meds, monitor for improvement Qualifiers: Peripheral neuropathy type: polyneuropathy associated with underlying disease Qualified Code(s): G63 - Polyneuropathy in diseases classified elsewhere (14) Major depressive disorder Impression: - Takes Zoloft at home - Now resumed - Anxiety is her primary complaint, which seems to be escalating each day - Poor mood continues with hopelessness Plan: Continue med (15) Hyperlipidemia associated with type 2 diabetes mellitus Impression: - Takes a statin at home - Now resumed Plan: Continue med
[2018-07-23] MEDS: OXYMETAZOLINE NASAL SPRAY NAS SCH (22:42)
[2018-07-24] MEDS: SODIUM CHLORIDE FLUSH 0.9% 10 ML SYRINGE IVP SCH ×3 (00:30→17:31)
[2018-07-24] MEDS: GABAPENTIN 300 MG CAPSULE PO SCH ×2 (01:44→22:01)
[2018-07-24] MEDS: ACETAMINOPHEN 325 MG TABLET PO PRN (02:59)
[2018-07-24] MEDS: OCTREOTIDE 100 MCG/ML VIAL SUBQ SCH ×4 (06:13→22:04)
[2018-07-24] MEDS: PANTOPRAZOLE 40 MG TABLET PO SCH (06:14)
[2018-07-24] MEDS: SODIUM CHLORIDE 0.65% NASAL SPRAY NAS PRN ×2 (06:24→09:18)
[2018-07-24 06:26] LABS: HGB - HEMOGLOBIN 12.3 g/dL (12.0-16.0); MEAN CORPUSCULAR HEMOGLOBIN 32.3 pg (27.0-31.0); MEAN CORPUSCULAR HGB CONC 33.2 g/dL (32.0-36.0); MEAN CORPUSCULAR VOLUME 97.2 fL (81.0-99.0); MEAN PLATELET VOLUME 8.4 fL (7.9-10.8); RED BLOOD COUNT 3.8 10^6/uL (4.20-5.40); RED CELL DISTRIBUTION WIDTH 13.6 % (12.0-15.0)
[2018-07-24] MEDS: SERTRALINE 50 MG TABLET PO SCH (09:15)
[2018-07-24] MEDS: METOPROLOL SUCCINATE 25 MG TABLET PO SCH ×2 (09:15→17:30)
[2018-07-24] MEDS: amLODIPine 5 MG TABLET PO SCH (09:16)
[2018-07-24] MEDS: OXYMETAZOLINE NASAL SPRAY NAS SCH ×2 (09:18→22:03)
[2018-07-24] MEDS: LORazepam 0.5 MG TABLET PO PRN (09:21)
[2018-07-24] MEDS: ENOXAPARIN 40 MG/0.4 ML SYRINGE SUBQ SCH (09:23)
[2018-07-24] MEDS: FLUTICASONE NASAL SPRAY NAS SCH (09:50)
[2018-07-24] MEDS: INSULIN ASPART 300 UNIT/3 ML PEN SUBQ SCH ×4 (09:50→22:01)
[2018-07-24] MEDS ORDERED: TPN (CLINIMIX E 5/15) 2,000 ML with MULTIVITAMIN 10 ML, TRACE ELEMENTS V CONC 1 ML IV SCH ×6 (12:40→19:00)
[2018-07-24] MEDS ORDERED: clonazePAM 0.5 MG TABLET PO PRN (17:02)
--- NOTE | 2018-07-24 17:07 | PROVIDER PROGRESS NOTE ---
Subjective - Prog Note Date Prog Note Date: 07/24/18 Prog Note Time: 17:05 - Subjective Pt reports feeling: Worse Subjective: Kristie is very upset with learning about her receiving Lorazepam despite this being listed as an allergy. She was first prescribed this as an outpatient by oncology for her ongoing anxiety related to her new breast cancer diagnosis. Both lorazepam and temazepam taken off her list, alprazolam remains as per patient request. * a [id number] phone call is scheduled for 11AM on 07/26/[address] Cindy Galaviz to speak about this patient's hospital stay and medical necessity as per the request of [facility]. Current Medications - Current Medications Current Medications: Active Medications: Acetaminophen (Tylenol) 650 mg PO Q4HR PRN Amlodipine Besylate (Norvasc) 5 mg PO DAILY [facility] Aspirin (Ecotrin) 81 mg PO QPM [facility] Carboxymethylcellulose (Refresh 1% Ophth Drops) 1 drops EACHEYE PRN PRN Clonazepam (Klonopin) 0.5 mg PO BID PRN Clonidine HCl (Catapres) 0.1 mg PO BIDWM [facility] Diphenoxylate HCl/Atropine (Lomotil) 1 tab PO QID PRN Enoxaparin Sodium (Lovenox) 40 mg SUBQ DAILY [facility] Fluticasone Propionate (Flonase) 1 sprays FÁTIMA DAILY [facility] Gabapentin (Neurontin) 300 mg PO QPM [facility] Hydromorphone HCl (Dilaudid Inj Carp) 1 mg IVP Q2HR PRN Acetaminophen (Ofirmev) 100 mls @ 400 mls/hr IV Q6HR PRN Fat Emulsion Intravenous (Intralipid 20%) 250 mls @ 21 mls/hr IV Q24H [facility] Multivitamins 10 ml/ Chromium/Copper/Manganese/Seleni/Zn 1 ml/ Amino Ac/Electrol/Dextrose /Calcium 2,011 mls @ 50 mls/hr IV Q24H [facility]AY; Protocol Insulin Aspart (Novolog) 1 - 5 unit SUBQ 0800,1200,1700,2100 [facility]; Protocol Insulin Glargine (Lantus Solostar) 15 unit SUBQ QPM [facility] Metoprolol Succinate (Toprol Xl) 12.5 mg PO BIDWM [facility] Multi-Ingred Cream/Lotion/Oil/Oint (Lubrifresh Pm Ophth Oint) 1 applic EACHEYE QPM PRN Octreotide Acetate (Sandostatin) 150 mcg SUBQ TID [facility] Ondansetron HCl (Zofran Inj) 4 mg IVP Q6HR PRN Oxymetazoline HCl (Afrin) 1 sprays FÁTIMA BID [facility] Pantoprazole Sodium (Protonix) 40 mg PO QDAC [facility] Phenol/Menthol (Chloraseptic) 2 sprays MM Q2HR PRN Prochlorperazine Edisylate (Compazine Inj) 10 mg IVP Q6HR PRN Promethazine HCl (Phenergan Supp) 25 mg [place] Q6H PRN Sertraline HCl (Zoloft) 100 mg PO DAILY [facility] Sodium Chloride ([place]) 1 sprays FÁTIMA Q4HR PRN Throat Lozenges (Cepacol) 1 lozenge MM Q2HR PRN Vitamin A/Vitamin D (Vitamin A & D Ointment) 1 applic TOP TID PRN Wheat Dextrin (Benefiber) 1 packet PO DAILY PRN HOME meds: Diclofenac Sodium Dr [Voltaren] 75 mg PO BID 06/27/18 Gabapentin 300 mg PO QPM 06/27/18 Metoprolol Tartrate 50 mg PO BID 06/27/18 Sertraline HCl 100 mg PO DAILY 06/27/18 Simvastatin 20 mg PO QPM 06/27/18 clonazePAM [Clonazepam] 0.5 mg ORAL BID PRN 06/27/18 metFORMIN [Glucophage] 500 mg PO DAILYWM 06/27/18 Aspirin [Aspirin EC] 81 mg PO DAILY 06/29/18 Dexamethasone [Decadron] 4 mg PO BIDWM 07/11/18 Dicyclomine HCl 20 mg PO Q6H PRN 07/18/18 LORazepam [Lorazepam] 0.5 mg PO Q6H PRN 07/18/18 Prochlorperazine [Compazine] 10 mg PO Q6H 07/18/18 Diphenoxylate/Atropine [Lomotil] 1 tab PO QID PRN 07/20/18 Fluconazole 100 mg PO DAILY 07/20/18 Valsartan 80 mg PO DAILY 07/20/18 Objective - Vital Signs/Intake & Output Reviewed Vital Signs: Yes Vital Signs: Vital Signs x48h Temp Pulse Resp BP BP Pulse Ox 07/24/18 16:21 36.8 C 72 22 182/105 H 93 07/24/18 11:43 36.4 C L 68 16 179/94 H 180/99 H 94 Intake & Output: Intake & Output 07/21/18 07/22/18 07/23/18 07/24/18 23:59 23:59 23:59 23:59 Intake Total 3480.6337 190.1996 3185.000 1240 Output Total 2850 1870 1050 Balance 630.6337 32 2135.000 1240 - Objective General Appearance: positive: Alert, Moderate distress, Anxious Eyes Bilateral: positive: Normal inspection Eyes: OU Conjunctivae pale ENT: positive: Pharynx nml, Dry mucous membranes Neck: positive: No JVD, Trachea midline Respiratory: positive: Chest non-tender, No respiratory distress, Breath sounds nml Cardiovascular: positive: Regular rate & rhythm, No gallop Peripheral Pulses: 1+ Radial (R), 1+ Radial (L) Abdomen: positive: Tenderness, Guarding, Abnml bowel sounds Back: positive: Nml inspection Skin: positive: No rash, Warm, Dry, Other (bronze toned) Extremities: positive: Non-tender, Full ROM, Pedal edema, Joint swelling Neurologic/Psychiatric: positive: Oriented x3, CN's nml (2-12), Motor nml, Sensation nml, Depressed mood/affect, Other (tearful) Reflexes: Bicep (R): 3+, Bicep (L): 3+ - Lab Results Fish Bones: 07/24/18 05:55 07/23/18 07:32 Other Labs: Lab Results x24hrs 07/24/18 07/24/18 07/24/18 Range/Units 16:11 11:30 07:33 WBC (4.8-10.8) x10^3/uL RBC (4.20-5.40) 10^6/uL Hgb (12.0-16.0) g/dL Hct (37.0-47.0) % MCV (81.0-99.0) fL MCH (27.0-31.0) pg MCHC (32.0-36.0) g/dL RDW (12.0-15.0) % Plt Count (130-450) 10^3/uL MPV (7.9-10.8) fL POC Whole Bld Glucose 149 H 158 H 154 H (70 - 100) mg/dL 07/24/18 07/23/18 07/23/18 Range/Units 05:55 20:51 17:57 WBC 7.0 (4.8-10.8) x10^3/uL RBC 3.80 L (4.20-5.40) 10^6/uL Hgb 12.3 (12.0-16.0) g/dL Hct 37.0 (37.0-47.0) % MCV 97.2 (81.0-99.0) fL MCH 32.3 H (27.0-31.0) pg MCHC 33.2 (32.0-36.0) g/dL RDW 13.6 (12.0-15.0) % Plt Count 122 L (130-450) 10^3/uL MPV 8.4 (7.9-10.8) fL POC Whole Bld Glucose 134 H 169 H (70 - 100) mg/dL ABX Reporting Has patient been on IV antibiotics over the past 48 hours?: No Sepsis Event Note (H) - Evaluation Current Stage of Sepsis: Ruled out Assessment/Plan - Problem List (1) Nausea vomiting and diarrhea Impression: - No solid food or substantial liquid intake since 07/13 (8 days prior to admission) - Dry heaves and her panic attack episodes are not resolved - Reported less incontinence - Now with diarrhea shortly after consuming her meals, no stools during the night - Abdominal pain, nausea are intermittent and become worse with meals - Patient notes an improvement to her excoriated racquel-rectal region Plan: Continue lorazepam, lomotil, PPN, Octreotide SQ- increased to 150 mcg per oncology, and monitor for improvement (2) Intractable diarrhea Impression: - Possibly an additional culprit is the patient's lorazepam allergy, which was first prescribed outpatient - Continued on admission, and taken only as PRN - Now discontinued, as per patient request since in the past she had diarrhea from this drug although is prescribed alprazolam as well - Imaging including a abdominal/pelvic CT to evaluate for colitis (another cause of diarrhea), no evidence of this Plan: Continue to monitor, stop lorazepam and temazepam (3) Dehydration Impression: - Reports of greater than 9 stools in one day prior to admission - Today only 3-4 stools, less incontinence - C-diff was negative on 07/17/2018, no further bowel studies - Improvement of overall hydration status compared to admission exam - On exam, appearance of more hydration with less dry mucous membranes and skin appears less sunken and more supple Plan: Continue TPN, monitor labs, weights, and physical exam findings (4) Acute metabolic encephalopathy Impression: - Patient is having short term memory loss and word finding difficulties - Also noted by the patient's sister who was present for her admission exam, and one day later - These symptoms have been improved with a tearfullness when speaking of next steps in care with going home alone - Patient admits to confusion that had gotten worse in the 24 hours leading up to her admission, now resolved - On exam, neuro intact, only with continued vision loss and numbness and tingling to her BLEs Plan: Continue to monitor, fall precautions (5) Carcinoma of left breast Impression: - Left breast infiltrating ductal carcinoma, ER strongly positive, MI 75%, Ki-67 40%, HER-2 positive by IHC - Primary tumor is 3.5 cm at the 6 o'clock position, known left axillary lymph node metastases measuring 7 cm - Status post left breast biopsy - Biopsy site appears more open than when first examined on admission, but still intact without drainage Plan: Continue to treat acute symptoms, keep MAC clinic updated Qualifiers: Breast location: central portion of breast Estrogen receptor status: positive Patient sex: female Qualified Code(s): C50.112 - Malignant neoplasm of central portion of left female breast; Z17.0 - Estrogen receptor positive status [ER+] (6) Status post chemotherapy Impression: - Chemo with pertuzumab, trastuzumab, docetaxel and carboplatin every 21 days for 6 cycles - Not tolerating this first cycle very well as per Oncology notes - Plans to continue chemo (altered) by next week per oncology Plan: Continue to control control symptoms (7) Anxiety Impression: - Recently prescribed Lorazepam outpatient, which has been discontinued today per patient request - Anxiety remains one of her primary complaints on exam - Tearful during some topics related to prognosis estimates, financial situation, and what the future might hold - No improvement in symptoms on exam today, in fact becomes more easily tearful and fearful of plans for home - Very hopeless after learning that she had been prescribed lorazepam, that was initially prescribed outpatient and continued upon admission - Waxes and wanes depending on the time of day and her perception of support - Saturnino, her sister has returned to her home in [place] with plans to return in August Plan: Continue to monitor, provide Klonopin as needed (8) Vision loss, left eye Impression: - First noticed 3 days prior to admission - Oncology mentioned it may be caused by Bentyl, which has not been given on this hospital stay - On exam, no abnormal findings, + red reflex, no drainage - lid inflammation is resolved, flushed cheeks on exam left greater than right remain - Continues to complain of blurred vision and has trouble reading small print or seeing the TV Plan: Fall precautions, no driving (9) Protein calorie malnutrition Impression: - recent weight loss, at least 10 lbs in the past 14 days - no solid food or oral intake that has protein since 07/13 - uncontrolled symptoms make taking in calories difficult - PICC line ordered to transition from PPN to TPN - Poor veins leading to a line replacement - Appears better hydrated and with better nutrition as compared to admission - Weight continues to trend downward since admission ~ 5kg down since admit Plan: Nutritional following to assist with TPN Qualifiers: Protein-calorie malnutrition severity: unspecified severity Qualified Code(s): E46 - Unspecified protein-calorie malnutrition (10) Thrush of mouth and esophagus Impression: - Treated with an anti-fungal outpatient given her inability to swallow comfortably - Now with neck swelling, lymphadenopathy, and a profoundly hoarse, sore throat- improved today - Also complaining of racquel-rectal soreness- also improved today - Diflucan discontinued as recommended by oncology to decrease medications and symptoms are improved - Still has difficulty with swallowing in general despite a suspected resolution of initial thrush Plan: Monitor for improved oral intake (11) Hypomagnesemia Impression: - Magnesium was low while seen in the ED at 1.6 - Status post replacement - Now 1.7, likely from continued stools and lack of nutrition/ impaired absorption Plan: Give IV replacement via TPN, recheck labs (12) Essential hypertension Impression: - Home meds include an ARB and a beta van - We do not carry Valsartan, so Losartan was prescribed, but the patient is opposed to this since watching TV about "cancer causing pill" - Started on Norvasc for continued HTN - B/P now 180/99 - Complaints of dull headaches - Start Clonidine for continued HTN, may be related to anxiety Plan: Continue Norvasc, monitor vital sign (13) Diabetes mellitus type 2, controlled Impression: - Metformin 500mg daily at home - Hg A1C is 7.4% - Blood sugars 134-158 since admission Plan: Continue Lantus 15 units, SSI and blood sugar checks, advanced to a soft, carb controlled diet with poor PO that continues since admission Qualifiers: Diabetes mellitus intermediate manager insulin use: without snf use Diabetes mellitus complication detail: with nephropathy (14) Peripheral neuropathy Impression: - First diagnosed with DM ~ 10 years ago - Denies prior symptoms, only since starting chemo - BLE numbness and tingling continues to BLEs, worse since starting chemo - Takes gabapentin at home @ HS, now resumed - A1C is high at 7.4% Plan: Continue meds, monitor for improvement Qualifiers: Peripheral neuropathy type: polyneuropathy associated with underlying disease Qualified Code(s): G63 - Polyneuropathy in diseases classified elsewhere (15) Major depressive disorder Impression: - Takes Zoloft at home - Now resumed - Anxiety is her primary complaint, which seems to be escalating each day - Now with hypertension that remains elevated - Poor mood continues with hopelessness and tearfulness Plan: Continue med (16) Hyperlipidemia associated with type 2 diabetes mellitus Impression: - Takes a statin at home - Now resumed Plan: Continue med
[2018-07-24] MEDS: cloNIDine 0.1 MG TABLET PO SCH (17:27)
[2018-07-24] MEDS: FAT EMULSION 20% 250 ML IV SCH (19:31)
[2018-07-24] MEDS: ASPIRIN EC 81 MG TABLET PO SCH (22:01)
[2018-07-24] MEDS: INSULIN GLARGINE 300 UNIT/3 ML PEN SUBQ SCH (22:03)
[2018-07-24] MEDS: clonazePAM 0.5 MG TABLET PO SCH (22:25)
[2018-07-25] MEDS: SODIUM CHLORIDE FLUSH 0.9% 10 ML SYRINGE IVP SCH ×3 (00:49→17:17)
[2018-07-25] MEDS: ACETAMINOPHEN 325 MG TABLET PO PRN (03:55)
[2018-07-25] MEDS: OCTREOTIDE 100 MCG/ML VIAL SUBQ SCH (06:17)
[2018-07-25] MEDS: SODIUM CHLORIDE FLUSH 0.9% 10 ML SYRINGE IVP PRN (06:19)
[2018-07-25] MEDS: clonazePAM 0.5 MG TABLET PO SCH ×3 (06:21→22:05)
[2018-07-25] MEDS: PANTOPRAZOLE 40 MG TABLET PO SCH (06:21)
[2018-07-25] MEDS ORDERED: PETROLATUM WHITE 5 GM PACKET TOP ONE (06:22)
[2018-07-25] MEDS: cloNIDine 0.1 MG TABLET PO SCH ×2 (08:25→17:15)
[2018-07-25] MEDS: METOPROLOL SUCCINATE 25 MG TABLET PO SCH ×2 (08:25→17:15)
[2018-07-25] MEDS: SERTRALINE 50 MG TABLET PO SCH (08:25)
[2018-07-25] MEDS: amLODIPine 5 MG TABLET PO SCH (08:26)
[2018-07-25] MEDS: OXYMETAZOLINE NASAL SPRAY NAS SCH ×2 (08:26→22:06)
[2018-07-25] MEDS: ENOXAPARIN 40 MG/0.4 ML SYRINGE SUBQ SCH (08:26)
[2018-07-25] MEDS: INSULIN ASPART 300 UNIT/3 ML PEN SUBQ SCH ×4 (08:27→22:05)
[2018-07-25] MEDS: FLUTICASONE NASAL SPRAY NAS SCH (08:43)
[2018-07-25 08:48] LABS: BASOPHILS # (AUTO) 0.1 10^3/uL (0.0-0.1); EOSINOPHILS % (AUTO) 0.5 %; HGB - HEMOGLOBIN 13.3 g/dL (12.0-16.0); LYMPHOCYTES # (AUTO) 0.9 10^3/uL (1.5-3.5); LYMPHOCYTES % (AUTO) 15.6 %; MEAN CORPUSCULAR HEMOGLOBIN 32.1 pg (27.0-31.0); MEAN CORPUSCULAR HGB CONC 33.6 g/dL (32.0-36.0); MEAN CORPUSCULAR VOLUME 95.6 fL (81.0-99.0); MEAN PLATELET VOLUME 8.7 fL (7.9-10.8); MONOCYTES # (AUTO) 0.7 10^3/uL (0.0-1.0); MONOCYTES % (AUTO) 11.4 %; NEUTROPHILS # (AUTO) 4.3 10^3/uL (1.5-6.6); NEUTROPHILS % (AUTO) 71.5 %; PLT - PLATELET COUNT 120 10^3/uL (130-450); RED BLOOD COUNT 4.15 10^6/uL (4.20-5.40); RED CELL DISTRIBUTION WIDTH 13.5 % (12.0-15.0); WHITE BLOOD COUNT 5.9 x10^3/uL (4.8-10.8)
[2018-07-25 09:04] LABS: ALBUMIN 3.6 g/dL (3.2-5.5); ALBUMIN/GLOBULIN RATIO 1.2 (1.0-2.2); BILIRUBIN,TOTAL 0.6 mg/dL (0.2-1.0); CREATININE 0.4 mg/dL (0.4-1.0); MAGNESIUM 1.6 mg/dL (1.7-2.8); PHOSPHORUS 3.8 mg/dL (2.5-4.6); TOTAL PROTEIN 6.6 g/dL (6.7-8.2)
[2018-07-25] MEDS: MAGNESIUM OXIDE 400 MG TABLET PO SCH (14:52)
--- NOTE | 2018-07-25 16:22 | PROVIDER PROGRESS NOTE ---
Subjective - Prog Note Date Prog Note Date: 07/25/18 - Subjective Pt reports feeling: Improved Subjective: pt report her N/V is controlled. her Diarrhea is much better today, her abdominal comfort is better. pt request d/c her TPA, and she tried to eat Current Medications - Current Medications Current Medications: Active Medications Acetaminophen (Tylenol) 650 mg PO Q4HR PRN PRN Reason: Pain 1 to 4 Last Admin: 07/25/18 03:55 Dose: 650 mg Amlodipine Besylate (Norvasc) 5 mg PO DAILY [facility] Last Admin: 07/25/18 08:26 Dose: 5 mg Aspirin (Ecotrin) 81 mg PO QPM [facility] Last Admin: 07/24/18 22:01 Dose: 81 mg Carboxymethylcellulose (Refresh 1% Ophth Drops) 1 drops EACHEYE PRN PRN PRN Reason: Dry Eye Last Admin: 07/21/18 03:40 Dose: 1 applic Clonazepam (Klonopin) 0.5 mg PO TID [facility] Last Admin: 07/25/18 14:52 Dose: 0.5 mg Clonidine HCl (Catapres) 0.1 mg PO BIDWM [facility] Last Admin: 07/25/18 08:25 Dose: 0.1 mg Diphenoxylate HCl/Atropine (Lomotil) 1 tab PO QID PRN PRN Reason: Diarrhea Last Admin: 07/22/18 21:52 Dose: 1 tab Enoxaparin Sodium (Lovenox) 40 mg SUBQ DAILY [facility] Last Admin: 07/25/18 08:26 Dose: 40 mg Fluticasone Propionate (Flonase) 1 sprays FÁTIMA DAILY [facility] Last Admin: 07/25/18 08:43 Dose: 1 spr Gabapentin (Neurontin) 300 mg PO QPM [facility] Last Admin: 07/24/18 22:01 Dose: 300 mg Hydromorphone HCl (Dilaudid Inj Carp) 1 mg IVP Q2HR PRN PRN Reason: PAIN Last Admin: 07/21/18 03:41 Dose: 1 mg Acetaminophen (Ofirmev) 100 mls @ 400 mls/hr IV Q6HR PRN PRN Reason: PAIN Insulin Aspart (Novolog) 1 - 5 unit SUBQ 0800,1200,1700,2100 JAY; Protocol Last Admin: 07/25/18 14:51 Dose: Not Given Insulin Glargine (Lantus Solostar) 15 unit SUBQ QPM [facility] Last Admin: 07/24/18 22:03 Dose: 15 unit Magnesium Oxide (Mag Ox) 400 mg PO DAILYWM [facility] Last Admin: 07/25/18 14:52 Dose: 400 mg Metoprolol Succinate (Toprol Xl) 12.5 mg PO BIDWM [facility] Last Admin: 07/25/18 08:25 Dose: 12.5 mg Multi-Ingred Cream/Lotion/Oil/Oint (Lubrifresh Pm Ophth Oint) 1 applic EACHEYE QPM PRN PRN Reason: Dry Eye Ondansetron HCl (Zofran Inj) 4 mg IVP Q6HR PRN PRN Reason: Nausea / Vomiting Oxymetazoline HCl (Afrin) 1 sprays FÁTIMA BID [facility] Stop: 07/26/18 20:59 Last Admin: 07/25/18 08:26 Dose: 1 spr Pantoprazole Sodium (Protonix) 40 mg PO QDAC [facility] Last Admin: 07/25/18 06:21 Dose: 40 mg Phenol/Menthol (Chloraseptic) 2 sprays MM Q2HR PRN PRN Reason: Throat Pain Last Admin: 07/21/18 03:39 Dose: 2 sprays Prochlorperazine Edisylate (Compazine Inj) 10 mg IVP Q6HR PRN PRN Reason: Nausea / Vomiting Last Admin: 07/22/18 14:06 Dose: 10 mg Promethazine HCl (Phenergan Supp) 25 mg [place] Q6H PRN PRN Reason: Nausea / Vomiting Sertraline HCl (Zoloft) 100 mg PO DAILY [facility] Last Admin: 07/25/18 08:25 Dose: 100 mg Sodium Chloride (Normal Saline Flush 0.9%) 10 ml IVP PRN PRN PRN Reason: NEEDED PER PROVIDER ORDERS Last Admin: 07/25/18 06:19 Dose: 30 ml Sodium Chloride (Normal Saline Flush 0.9%) 10 ml IVP 0100,0900,1700 [facility] Last Admin: 07/25/18 08:27 Dose: 10 ml Sodium Chloride ([place]) 1 sprays FÁTIMA Q4HR PRN PRN Reason: Nasal Congestion Last Admin: 07/24/18 09:18 Dose: 1 spray Throat Lozenges (Cepacol) 1 lozenge MM Q2HR PRN PRN Reason: Throat pain Last Admin: 07/20/18 21:41 Dose: 1 lozenge Vitamin A/Vitamin D (Vitamin A & D Ointment) 1 applic TOP TID PRN PRN Reason: Dry Lips Wheat Dextrin (Benefiber) 1 packet PO DAILY PRN PRN Reason: Constipation Diclofenac Sodium Dr [Voltaren] 75 mg PO BID 06/27/18 Gabapentin 300 mg PO QPM 06/27/18 Metoprolol Tartrate 50 mg PO BID 06/27/18 Sertraline HCl 100 mg PO DAILY 06/27/18 Simvastatin 20 mg PO QPM 06/27/18 clonazePAM [Clonazepam] 0.5 mg ORAL BID PRN 06/27/18 metFORMIN [Glucophage] 500 mg PO DAILYWM 06/27/18 Aspirin [Aspirin EC] 81 mg PO DAILY 06/29/18 Dexamethasone [Decadron] 4 mg PO BIDWM 07/11/18 Dicyclomine HCl 20 mg PO Q6H PRN 07/18/18 LORazepam [Lorazepam] 0.5 mg PO Q6H PRN 07/18/18 Prochlorperazine [Compazine] 10 mg PO Q6H 07/18/18 Diphenoxylate/Atropine [Lomotil] 1 tab PO QID PRN 07/20/18 Fluconazole 100 mg PO DAILY 07/20/18 Valsartan 80 mg PO DAILY 07/20/18 Objective - Vital Signs/Intake & Output Reviewed Vital Signs: Yes Vital Signs: Vital Signs x48h Temp Pulse Resp BP Pulse Ox 07/25/18 15:57 37.1 C 71 20 138/72 H 07/25/18 11:32 37.0 C 64 16 159/84 H 94 07/25/18 08:43 36.8 C 67 16 162/96 H 93 Intake & Output: Intake & Output 07/22/18 07/23/18 07/24/18 07/25/18 23:59 23:59 23:59 23:59 Intake Total 3185.000 3392.75 1920.25 Output Total 187 1050 100 Balance 5.000 3392.75 1820.25 - Objective General Appearance: positive: No acute distress, Alert. negative: Lethargic Eyes Bilateral: positive: Normal inspection, PERRL, No lid inflammation, Conjunctivae nml ENT: positive: ENT inspection nml, Pharynx nml, No signs of dehydration. negative: Purulent nasal drainage, Pharyngeal erythema, Oral lesions Neck: positive: Nml inspection, Thyroid nml, No JVD, Trachea midline. negative: Thyromegaly, Lymphadenopathy (R), Lymphadenopathy (L), Stiff neck, Swelling/bruising, Tracheal deviation Respiratory: positive: Chest non-tender, No respiratory distress, Breath sounds nml. negative: Wheezes, Rales, Rhonchi Cardiovascular: positive: Regular rate & rhythm, No murmur, No gallop. negative: Irregularly irregular, Extrasystoles, Tachycardia, Bradycardia, JVD present, Systolic murmur, Diastolic murmur Peripheral Pulses: 2+ Radial (R), 2+ Radial (L), 2+ Dorsalis pedis (R), 2+ Dorsalis pedis (L) Abdomen: positive: Non-tender, No organomegaly, Nml bowel sounds, No distention. negative: Tenderness, Guarding, Rebound Back: positive: Nml inspection. negative: CVA tenderness (R), CVA tenderness (L) Skin: positive: Color nml, No rash, Warm, Dry. negative: Cyanosis, Diaphoresis, Pallor Extremities: positive: Non-tender, Full ROM, Nml appearance. negative: Calf tenderness, Joint swelling, Morgan's sign/cords Neurologic/Psychiatric: positive: Oriented x3, Motor nml, Sensation nml, Mood/affect nml. negative: Weakness, Sensory loss, Facial droop, Slurred/abnml speech, Depressed mood/affect - Lab Results Fish Bones: 07/25/18 08:44 07/25/18 08:44 Other Labs: Lab Results x24hrs 07/25/18 07/25/18 07/25/18 Range/Units 11:23 08:44 08:44 WBC 5.9 (4.8-10.8) x10^3/uL RBC 4.15 L (4.20-5.40) 10^6/uL Hgb 13.3 (12.0-16.0) g/dL Hct 39.7 (37.0-47.0) % MCV 95.6 (81.0-99.0) fL MCH 32.1 H (27.0-31.0) pg MCHC 33.6 (32.0-36.0) g/dL RDW 13.5 (12.0-15.0) % Plt Count 120 L (130-450) 10^3/uL MPV 8.7 (7.9-10.8) fL Neut # (Auto) 4.3 (1.5-6.6) 10^3/uL Lymph # (Auto) 0.9 L (1.5-3.5) 10^3/uL [place] # (Auto) 0.7 (0.0-1.0) 10^3/uL Eos # (Auto) 0.0 (0.0-0.7) 10^3/uL Baso # (Auto) 0.1 (0.0-0.1) 10^3/uL Absolute Nucleated RBC 0.01 x10^3/uL Nucleated RBC % 0.1 /100WBC Sodium 138 Potassium 3.9 Chloride 105 Carbon Dioxide 23 Anion Gap 10.0 BUN 16 Creatinine 0.4 Estimated GFR (MDRD) 161 Glucose 146 H POC Whole Bld Glucose 129 H (70 - 100) mg/dL Calcium 9.0 Phosphorus 3.8 Magnesium 1.6 L Total Bilirubin 0.6 AST 50 H ALT 66 H Alkaline Phosphatase 99 Total Protein 6.6 L Albumin 3.6 Globulin 3.0 Albumin/Globulin Ratio 1.2 Prealbumin 11 L Triglycerides 177 H LDL Cholesterol Direct dLDL/HDL Ratio 07/25/18 07/25/18 07/24/18 Range/Units 07:08 04:35 20:39 WBC (4.8-10.8) x10^3/uL RBC (4.20-5.40) 10^6/uL Hgb (12.0-16.0) g/dL Hct (37.0-47.0) % MCV (81.0-99.0) fL MCH (27.0-31.0) pg MCHC (32.0-36.0) g/dL RDW (12.0-15.0) % Plt Count (130-450) 10^3/uL MPV (7.9-10.8) fL Neut # (Auto) (1.5-6.6) 10^3/uL Lymph # (Auto) (1.5-3.5) 10^3/uL [place] # (Auto) (0.0-1.0) 10^3/uL Eos # (Auto) (0.0-0.7) 10^3/uL Baso # (Auto) (0.0-0.1) 10^3/uL Absolute Nucleated RBC x10^3/uL Nucleated RBC % /100WBC Sodium Cancelled Potassium Cancelled Chloride Cancelled Carbon Dioxide Cancelled Anion Gap Cancelled BUN Cancelled Creatinine Cancelled Estimated GFR (MDRD) Cancelled Glucose Cancelled POC Whole Bld Glucose 147 H 154 H (70 - 100) mg/dL Calcium Cancelled Phosphorus Cancelled Magnesium Cancelled Total Bilirubin Cancelled AST Cancelled ALT Cancelled Alkaline Phosphatase Cancelled Total Protein Cancelled Albumin Cancelled Globulin Cancelled Albumin/Globulin Ratio Cancelled Prealbumin Cancelled Triglycerides Cancelled LDL Cholesterol Direct Cancelled dLDL/HDL Ratio Cancelled ABX Reporting Has patient been on IV antibiotics over the past 48 hours?: No Sepsis Event Note (H) - Evaluation Current Stage of Sepsis: Ruled out Assessment/Plan - Problem List (1) Nausea vomiting and diarrhea Impression: improved. N/V and diarrhea is better controlled pt ate solid food 30-40% in lunch pt request d/c TPA continue anti-emsis continue lorazepam, lomoti PRN (2) Carcinoma of left breast Impression: Status post first chemotherapy advise pt followup her oncologist closely (3) Anxiety Impression: pt present anxiety significantly. continue Klonopin as needed (4) Vision loss, left eye Impression: pt has no complaint for vision loss continue monitor closely (5) Thrush of mouth and esophagus Impression: improved, continue monitor pt (6) Hypomagnesemia Impression: Mag 1.6, order Mag oxide (7) Essential hypertension Impression: stable, continue home, vital monitor (8) Diabetes mellitus type 2, controlled Impression: stable, controlled glucose, continue slide scale, continue home Lantus (9) Peripheral neuropathy Impression: stable, continue Takes gabapentin (10) Major depressive disorder Impression: stable, continue Takes Zoloft as her home meds (11) Hyperlipidemia Impression: stable, continue to Takes a statin as home meds
[2018-07-25] MEDS: GABAPENTIN 300 MG CAPSULE PO SCH (22:04)
[2018-07-25] MEDS: ASPIRIN EC 81 MG TABLET PO SCH (22:05)
[2018-07-25] MEDS: INSULIN GLARGINE 300 UNIT/3 ML PEN SUBQ SCH (22:08)
[2018-07-25] MEDS ORDERED: ZOLPIDEM 5 MG TABLET PO PRN (23:00)
[2018-07-25] MEDS ORDERED: traZODone 50 MG TABLET PO PRN (23:01)
--- NOTE | 2018-07-26 04:53 | ONCOLOGY / HEMATOLOGY ---
DATE OF SERVICE: 07/25/2018 Physician: Filemon Lopez MD IN-HOSPITAL VISIT DIAGNOSES 1. Left breast infiltrating ductal carcinoma, status post cycle 1 neoadjuvant chemotherapy with TCHP. 2. Severe diarrhea, nausea and abdominal pain secondary to chemotherapy. INTERVAL HISTORY: Patient was seen in the hospital for followup. She has been hospitalized for severe diarrhea, nausea, abdominal pain after cycle 1 chemo administered on July 13. She has not had any diarrhea since yesterday. She is able to eat a little better today. She still gets abdominal pain after eating any food. She might be discharged home tomorrow. She is still very apprehensive about how she is going to be doing at home without any help. She does not have a good appetite. Her mouth and throat are dry. She has been having mouth sores from the chemo. It is very painful for her to eat food. Her blood pressure has been high during this hospitalization. She was put on clonidine. She was previously on metoprolol. She is also concerned about her financial status. She might be at a risk of losing her house if she cannot continue to work. Her anxiety has been under better control with clonazepam. She said the dexamethasone really helped with her nausea recently. PAST, FAMILY, AND SOCIAL HISTORY: Type 2 diabetes, hypertension, hypercholesterolemia, depression and anxiety. She was originally from [place]. Her sister just went back to [place] after visiting her here for a few weeks. PHYSICAL EXAMINATION VITAL SIGNS: Per chart. GENERAL APPEARANCE: Pleasant, in no acute distress, obese. HEENT: Sclerae anicteric. SKIN: No rash. Multiple bruises on her arms. She has a PICC line on her right upper arm. LEGS: No edema. NEUROLOGIC: She is alert and oriented. She is very angry and upset. LABORATORY DATA: Today CBC and chemistry panel were reviewed. I reviewed with her the breast MRI results. Left breast exam showed a biopsy- proven malignancy at 6 o'clock, measuring 4.1 cm. Additional 4.1 cm mass at 7 o'clock abutting the chest wall, suggesting multifocal disease. There is ill- defined chest wall margin to suggest focal invasion. Biopsy-proven level 1 left axillary lymphadenopathy was noted. Right breast exam was normal. ASSESSMENT AND PLAN 1. Left breast infiltrating ductal carcinoma, ER positive, ME positive, HER2 positive. Stage III. She is status post cycle 1 neoadjuvant chemotherapy with TCHP 2 weeks ago. I will see her in a week before starting cycle 2 treatment. We might stop Leno due to her poor tolerance to the side effects from cycle 1 chemo. 2. Nausea, vomiting, diarrhea secondary to chemotherapy. She has improved. With future cycles of chemo, she may take dexamethasone for 3-7 days after chemotherapy to help with the nausea. 3. Oral mucositis. We will call in a prescription of magic mouthwash to her [facility] in [place]. I will contact Dr. Peters to see if we can move up her mediastinoscopy and lymph node biopsy to next week. Would prefer her to keep her PICC line after she is discharged from the hospital. She is also going to see Dr. Jenkins to get a new port placed later this week. Follow up in a week. Forty minutes was spent on this hospital visit. TD: 07/25/2018 21:00 MTDD
[2018-07-26] MEDS: SODIUM CHLORIDE FLUSH 0.9% 10 ML SYRINGE IVP PRN ×2 (05:58→06:06)
[2018-07-26] MEDS: clonazePAM 0.5 MG TABLET PO SCH ×2 (06:22→14:01)
[2018-07-26] MEDS: PANTOPRAZOLE 40 MG TABLET PO SCH (06:23)
[2018-07-26] MEDS: SODIUM CHLORIDE FLUSH 0.9% 10 ML SYRINGE IVP SCH ×2 (06:23→08:46)
[2018-07-26 06:53] LABS: BASOPHILS % (AUTO) 1.2 %; EOSINOPHILS % (AUTO) 0.7 %; HGB - HEMOGLOBIN 13.2 g/dL (12.0-16.0); LYMPHOCYTES % (AUTO) 24.9 %; MEAN CORPUSCULAR HEMOGLOBIN 32.1 pg (27.0-31.0); MEAN CORPUSCULAR HGB CONC 33.3 g/dL (32.0-36.0); MEAN CORPUSCULAR VOLUME 96.4 fL (81.0-99.0); MEAN PLATELET VOLUME 8.9 fL (7.9-10.8); MONOCYTES # (AUTO) 0.5 10^3/uL (0.0-1.0); MONOCYTES % (AUTO) 12.6 %; NEUTROPHILS # (AUTO) 2.5 10^3/uL (1.5-6.6); NEUTROPHILS % (AUTO) 60.6 %; PLT - PLATELET COUNT 127 10^3/uL (130-450); RED CELL DISTRIBUTION WIDTH 13.8 % (12.0-15.0); WHITE BLOOD COUNT 4.2 x10^3/uL (4.8-10.8)
[2018-07-26 07:06] LABS: ALBUMIN 3.4 g/dL (3.2-5.5); ALBUMIN/GLOBULIN RATIO 1.1 (1.0-2.2); BILIRUBIN,TOTAL 0.9 mg/dL (0.2-1.0); CREATININE 0.5 mg/dL (0.4-1.0); TOTAL PROTEIN 6.5 g/dL (6.7-8.2)
[2018-07-26] MEDS: METOPROLOL SUCCINATE 25 MG TABLET PO SCH (08:43)
[2018-07-26] MEDS: cloNIDine 0.1 MG TABLET PO SCH (08:43)
[2018-07-26] MEDS: MAGNESIUM OXIDE 400 MG TABLET PO SCH (08:45)
[2018-07-26] MEDS: SERTRALINE 50 MG TABLET PO SCH (08:45)
[2018-07-26] MEDS: INSULIN ASPART 300 UNIT/3 ML PEN SUBQ SCH ×2 (08:45→11:41)
[2018-07-26] MEDS: OXYMETAZOLINE NASAL SPRAY NAS SCH (08:46)
[2018-07-26] MEDS: FLUTICASONE NASAL SPRAY NAS SCH (08:46)
[2018-07-26] MEDS: ENOXAPARIN 40 MG/0.4 ML SYRINGE SUBQ SCH (08:46)
[2018-07-26] MEDS: amLODIPine 5 MG TABLET PO SCH (08:46)
[2018-07-26] MEDS ORDERED: LOPERAMIDE 2 MG CAPSULE PO PRN (10:55)
[2018-07-26] MEDS: DIPHENOX/ATROPINE 2.5/0.025 MG TABLET PO PRN (11:33)
--- NOTE | 2018-07-26 14:10 | Discharge Plan ---
Discharge Plan Disposition: Home, Self Care Condition: Poor Prescriptions: amLODIPine [Norvasc] 2.5 mg PO DAILY #10 tablet Loperamide [Imodium] 2 mg PO QID PRN #15 capsule PRN Reason: Diarrhea Diet: Diabetic Activity Restrictions: Activity as Tolerated Shower Restrictions: No (fall precaution) Instruction Topics: Loperamide tablets or capsules, Amlodipine tablets Additional Instructions or Follow Up instructions: you may followup your PCP in one week, followup your oncologist and Dr. Jenkins as the schedule. Your PICC is kept per Dr. Lopez's recommendation, please followup DR. Lopez for PICC line care. Your diarrhea is controlled after treatment. Should your symptoms return or worsen, you may present ER, call 911 for help No Smoking: If you smoke, Please STOP! Call for help. Follow-up with: Bisi Urban DNP [Credentialed Staff Provider] -
--- NOTE | 2018-07-26 14:34 | DISCHARGE SUMMARY ---
Discharge Summary Discharge Date: 07/26/18 Discharging Provider: ÁLVAREZ Primary Care Provider: Dr. Urban Condition at Discharge: Poor Discharge Disposition: 01 Home, Self Care Discharge Facility Name: home - DIAGNOSES Admission Diagnoses: (1) Nausea vomiting and diarrhea (2) Dehydration (3) Acute metabolic encephalopathy (4) Carcinoma of left breast (5) Status post chemotherapy (6) Anxiety (7) Vision loss, left eye (8) Protein calorie malnutrition (9) Thrush of mouth and esophagus (10) Hypomagnesemia (11) Essential hypertension (12) Diabetes mellitus type 2, controlled (13) Peripheral neuropathy (14) Major depressive disorder (15) Hyperlipidemia associated with type 2 diabetes mellitus Discharge Diagnoses with Status of Each Condition: (1) Nausea vomiting and diarrhea (2) Carcinoma of left breast (3) Anxiety (4) Vision loss, left eye (5) Thrush of mouth and esophagus (6) Hypomagnesemia (7) Essential hypertension (8) Diabetes mellitus type 2, controlled (9) Peripheral neuropathy (10) Major depressive disorder (11) Hyperlipidemia - HPI History of Present Illness: refer from [facility]. [facility] on 07/20/18 for pt as the following: Kristie Lantigua is a 63-year old female with a past medical history of diabetes mellitus type 2, hypertension, hyperlipidemia, status post laminectomy (L4, L5, S1) x2 in 1994, then in 2017, complicated by a nicked spinal dura and repair requiring prolonged bedrest and half-way rehab ~35 days, vestibular neuritis, chronic vertigo, stable gallstones, syncope and collapse without injury, obstructive sleep apnea- no longer requiring a CPAP, varicose vein stripping, and anxiety disorder. The patient was recently diagnosed with left breast infiltrating ductal carcinoma and is status post a left axillary lymph node biopsy. She has had treatment at [place] and is followed by Harika Lopez[facility] oncology. She underwent her first round of chemo at the [facility] of this month. She has had 2 trips to our ED and daily MAC visits this week for symptom management of primarily her uncontrolled, frequent and incontinent diarrhea. She has not been able to eat any solid food since 07/13/2018, and is having grave difficulty with keeping orally, a spoonful at a time down before throwing it up. She has consequently developed oral thrush, excoriated racquel-rectal skin and in the past 3 days has had left eye vision loss, dizziness, insomnia, dry heaves, shortness of breath, chills, diaphoresis, and increased short term memory loss with word finding difficulties. Upon arrival to the nursing floor she is accompanied by her sister, Saturnino who has been her main support for this difficult initiation into treatment of her breast cancer. Unfortunately, Saturnino must travel back to [place], which is where she resides in 2 days. Niko, from our social work team has been very helpful and supportive outpatient in helping provide resources, lending a listening ear r egarding Saturnino's soon departure, and may continue to see the patient while inpatient. Kristie has many reservations about staying at home alone upon discharge due to her inability to consume food, liquids, her recent stool incontinence, acute left eye blindness that only started 3 days ago, ongoing d izziness, weakness and emotional instability this new diagnosis has caused her. On exam Kristie states that her primary complaint is her diffuse abdominal pain that at times, takes her breath away it is so severe and is described as sharp, cramping, intermittent and rates it as a 5 out of 10. She also admits to being bothered by her profoundly sore throat, swelling in her left eye, mouth soreness from her recent oral thrush, and increased shortness of breath. She also states that she has had new bilateral toe numbness and tingling, and new onset frontal headaches since starting chemo. She described an event at 0200 AM this morning in which she woke up in a panic because she felt as if her throat was closing off, had sudden onset of dry heaves, anxiety, diaphoresis, and blurred vision. She states that the only thing that relieved this was the fact that her sister was by her side and could calm her. She also took a lorazepam recently prescribed by oncology, which also helped. She is now wearing oxygen for ongoing dyspnea, shortness of breath, and throat swelling. She will be admitted to observation for symptom management as her labs are not that impressive for severe hydration showing no electrolyte abnormalities, chest x-ray shows no acute infiltrates, and a nutritional consult will be made due to worrisome reports of no food since 07/13 (8 days ago). - HOSPITAL COURSE Hospital Course: 1) Nausea vomiting and diarrhea resolved. pt tolerate diet. pt has no more N/N /D. pt is prescribed imodium and Lomotil PRN. (2) Carcinoma of left breast followup Dr. Lopez, her oncologist as her schedule (3) Anxiety stable, increase her home Kolonopin 1mg tid PRN. pt is very anxiety in the hospital (4) Thrush of mouth and esophagus resolved (5) Hypomagnesemia replaced (6) Essential hypertension stable, add Norvasc 2.5mg daily, followup PCP (7) Diabetes mellitus type 2, controlled stable, followup PCP (8) Peripheral neuropathy stable (9) Major depressive disorder stable, followup PCP (10) Hyperlipidemia stable - ALLERGIES Allergies/Adverse Reactions: Allergies Allergy/AdvReac Type Severity Reaction Status Date / Time hydroxyzine Allergy Itching Verified 07/17/18 13:40 lorazepam Allergy Emesis Verified 07/17/18 13:40 meclizine Allergy Emesis Verified 07/17/18 13:40 - MEDICATIONS Home Medications: Ambulatory Orders Medication Instructions Recorded Confirmed Diclofenac Sodium Dr [Voltaren] 75 mg PO DAILY 06/27/18 07/26/18 Gabapentin 300 mg PO QPM 06/27/18 07/20/18 Metoprolol Tartrate 50 mg PO BID 06/27/18 07/20/18 Sertraline HCl 100 mg PO DAILY 06/27/18 07/20/18 Simvastatin 20 mg PO QPM 06/27/18 07/20/18 metFORMIN [Glucophage] 500 mg PO BIDWM 06/27/18 07/26/18 Aspirin [Aspirin EC] 81 mg PO DAILY 06/29/18 07/20/18 Valsartan 80 mg PO DAILY 07/20/18 07/20/18 Diphenoxylate/Atropine [Lomotil] 1 each PO QID PRN #15 tablet 07/26/18 Fluticasone [Flonase] 1 sprays FÁTIMA DAILY PRN #1 bottle 07/26/18 Loperamide [Imodium] 2 mg PO QID PRN #15 capsule 07/26/18 amLODIPine [Norvasc] 2.5 mg PO DAILY #10 tablet 07/26/18 clonazePAM [KlonoPIN] 1 mg PO TID PRN #15 tablet 07/26/18 - PHYSICAL EXAM AT DISCHARGE General Appearance: positive: No acute distress, Alert. negative: Lethargic Eyes Bilateral: positive: Normal inspection, PERRL, No lid inflammation, Conjunctivae nml ENT: positive: ENT inspection nml, Pharynx nml, No signs of dehydration. negative: Purulent nasal drainage, Pharyngeal erythema, Oral lesions Neck: positive: Nml inspection, Thyroid nml, No JVD, Trachea midline. negative: Thyromegaly, Lymphadenopathy (R), Lymphadenopathy (L), Stiff neck, Swelling/bruising, Tracheal deviation Respiratory: positive: Chest non-tender, No respiratory distress, Breath sounds nml. negative: Wheezes, Rales, Rhonchi Cardiovascular: positive: Regular rate & rhythm, No murmur, No gallop. negative: Irregularly irregular, Extrasystoles, Tachycardia, Bradycardia, JVD present, Systolic murmur, Diastolic murmur Peripheral Pulses: positive: 2+ Abdomen: positive: Non-tender, No organomegaly, Nml bowel sounds, No distention. negative: Tenderness, Guarding, Rebound Back: positive: Nml inspection. negative: CVA tenderness (R), CVA tenderness (L) Skin: positive: Color nml, No rash, Warm, Dry. negative: Cyanosis, Diaphoresis, Pallor Extremities: positive: Non-tender, Full ROM, Nml appearance. negative: Calf tenderness, Joint swelling, Morgan's sign/cords Neurologic/Psychiatric: positive: Oriented x3, Motor nml, Sensation nml, Mood/a ffect nml. negative: Weakness, Sensory loss, Facial droop, Slurred/abnml speech, Depressed mood/affect - LABS Result Diagrams: 07/26/18 06:00 07/26/18 06:00 - SEPSIS Current Stage of Sepsis: Ruled out - FOLLOW UP Follow Up: you may followup your PCP in one week, followup your oncologist and Dr. Jenkins as the schedule. Your PICC is kept per Dr. Lopez's recommendation, please followup DR. Lopez for PICC line care. Your diarrhea is controlled after treatment. Should your symptoms return or worsen, you may present ER, call 911 for help - TIME SPENT Time Spent in Discharge (Minutes): 55
[2018-07-26 16:16] VITALS: BP 137/80
== END 2018-07-26 16:51 | disposition home or self-care (01) | DRG 393 ==
LOC: INTOOBSV 11:22 → MS2 11:22 → OBSVTOIN 11:42
PROVIDERS: ADMIT Nurse Practitioner; ATTEND Nurse Practitioner Gerontology
PROC: 02HV33Z Insertion of Infusion Device into Superior Vena Cava, Percutaneous Approach (ICD-10-PCS; principal; 2018-07-23)
PROC: 3E0436Z Introduction of Nutritional Substance into Central Vein, Percutaneous Approach (ICD-10-PCS; 2018-07-23)
DX: K52.1 Toxic gastroenteritis and colitis (principal); G93.41 Metabolic encephalopathy; B37.81 Candidal esophagitis; B37.0 Candidal stomatitis; E46 Unspecified protein-calorie malnutrition; C77.3 Secondary and unspecified malignant neoplasm of axilla and upper limb lymph nodes; E86.0 Dehydration; R11.2 Nausea with vomiting, unspecified; C50.112 Malignant neoplasm of central portion of left female breast; Z17.0 Estrogen receptor positive status [ER+]; F41.9 Anxiety disorder, unspecified; H54.62 Unqualified visual loss, left eye, normal vision right eye; E83.42 Hypomagnesemia; I10 Essential (primary) hypertension; E11.51 Type 2 diabetes mellitus with diabetic peripheral angiopathy without gangrene; E11.42 Type 2 diabetes mellitus with diabetic polyneuropathy; E78.5 Hyperlipidemia, unspecified; F32.9 Major depressive disorder, single episode, unspecified; Z92.21 Personal history of antineoplastic chemotherapy; Z79.84 Long term (current) use of oral hypoglycemic drugs; Z79.82 Long term (current) use of aspirin; R41.3 Other amnesia; G47.00 Insomnia, unspecified; E78.00 Pure hypercholesterolemia, unspecified; R01.1 Cardiac murmur, unspecified; K21.9 Gastro-esophageal reflux disease without esophagitis; J32.9 Chronic sinusitis, unspecified; M19.90 Unspecified osteoarthritis, unspecified site; K80.20 Calculus of gallbladder without cholecystitis without obstruction; T45.1X5A Adverse effect of antineoplastic and immunosuppressive drugs, initial encounter
CPT/HCPCS: 36415; 71045; 74177; 80053; 83036; 83605; 83721; 83735; 84100; 84134; 84478; 85025; 85027; 93005; 96372; 99233; A9270; C1751; J1170; J1650; J1815; J2354; J3490; Q9967

== ENCOUNTER 2018-07-28 06:13 | Day surgery (SDC) | payer MEDICAID ==
[2018-07-28] MEDS ORDERED: LACTATED RINGERS 1,000 ML IV ONE (06:25)
[2018-07-28] MEDS ORDERED: SODIUM CHLORIDE FLUSH 0.9% 10 ML SYRINGE ONE ×3 (07:00→10:30)
--- NOTE | 2018-07-28 07:05 | ANESTHESIA ---
Pre-Anesthesia VS, & Labs - Diagnosis failed port-a-cath - Procedure port-a-cath revision Vital Signs: Temp Pulse Resp BP Pulse Ox 36.5 C 96 16 125/67 97 07/28/18 06:44 07/28/18 06:44 07/28/18 06:44 07/28/18 06:44 07/28/18 06:44 Height 5 ft 6 in Weight (kg) 117 kg Body Mass Index 42.0 - NPO >8 hours - Is Patient ?: No - Lab Results Lab results reviewed: Yes Home Medications and Allergies Diclofenac Sodium Dr [Voltaren] 75 mg PO DAILY 06/27/18 Gabapentin 300 mg PO QPM 06/27/18 Metoprolol Tartrate 50 mg PO BID 06/27/18 Sertraline HCl 100 mg PO DAILY 06/27/18 Simvastatin 20 mg PO QPM 06/27/18 metFORMIN [Glucophage] 500 mg PO BIDWM 06/27/18 Aspirin [Aspirin EC] 81 mg PO DAILY 06/29/18 Valsartan 80 mg PO DAILY 07/20/18 Allergies/Adverse Reactions: Allergies Allergy/AdvReac Type Severity Reaction Status Date / Time hydroxyzine Allergy Itching Verified 07/17/18 13:40 lorazepam Allergy Emesis Verified 07/17/18 13:40 meclizine Allergy Emesis Verified 07/17/18 13:40 Anes History & Medical History - Anesthetic History Anesthesia Complications: reports: No previous complications Family history of Anesthesia Complications: Denies Family history of Malignant Hyperthermia: Denies - Medical History Cardiovascular: reports: Hypertension, High cholesterol, Peripheral Vascular Disease, Murmur Pulmonary: reports: Sleep apnea, CPAP use (states that she no longer needs one) Gastrointestinal: reports: GERD, Cholelithiasis Urinary: reports: None Neuro: reports: Headaches, Peripheral neuropathy, Fainting Musculoskeletal: reports: Osteoarthritis Endocrine/Autoimmune: reports: Type 2 diabetes Blood Disorders: reports: None Skin: reports: None, Other Smoking Status: Never smoker - Surgical History Eyes Ears Nose Throat (EENT): Tonsil/Adenoidectomy Gynecologic: Tubal ligation, Other (left breast bx) Orthopedic: Spine surgery (s/p laminectomy 1994 and 2017, complicated by a nicked spinal dura-repaired) Exam General: Alert, Oriented x3 Dental: WNL Mouth Openin Fingerbreadth Neck Mobility: Normal Mallampati classification: II Thyromental Distance: 4-6 cm Respiratory: Normal breath sounds Cardiovascular: Regular rate Neurological: Normal speech Mental/Cognitive Status: Alert/Oriented X3, Normal for patient Cognitive Status: Within normal limits Plan Anesthesia Type: General Consent for Procedure(s) Verified and Reviewed: Yes Code Status: Attempt Resuscitation ASA classification: 3-Severe systemic disease Is this case an emergency?: No
--- NOTE | 2018-07-28 07:10 | HISTORY & PHYSICAL EXAMINATION ---
HPI - Admitted From Admitted from: Other (Outpatient.) - History Obtained From Records Reviewed: Old records reviewed History obtained from: Patient Exam limitations: No limitations - History of Present Illness Pain/Problem Location Description: None. HPI Comment/Other: Patient has a non-operative Port-a-Cath. PMH/PSH - Past Medical History Cardiovascular: positive: Hypertension, High cholesterol, Peripheral Vascular Disease, Murmur Respiratory: positive: Sleep apnea, CPAP use (states that she no longer needs one) Neuro: positive: Headaches, Peripheral neuropathy, Fainting Endocrine/Autoimmune: positive: Type 2 diabetes GI: positive: GERD, Cholelithiasis [employer]: positive: Miscarriage(s) (x1), Breast cancer : positive: None HEENT: positive: Chronic vision loss (acute vision loss), Chronic sinusitis Psych: positive: Anxiety Musculoskeletal: positive: Osteoarthritis Derm: positive: None, Other MRSA Hx?: No - Past Surgical History Ortho: positive: Spine surgery (s/p laminectomy 1994 and 2016, complicated by a nicked spinal dura-repaired) /[employer]: positive: Tubal ligation, Other (left breast bx) HEENT: positive: Tonsil/Adenoidectomy Social & Family Hx - Social History Does the pt smoke?: No Smoking Status: Never smoker - POLST Patient has POLST: No POLST Status: Full Code Meds/Allgy - Home Medications Home Medications: Ambulatory Orders Medication Instructions Recorded Confirmed Diclofenac Sodium Dr [Voltaren] 75 mg PO DAILY 06/27/18 07/26/18 Gabapentin 300 mg PO QPM 06/27/18 07/20/18 Metoprolol Tartrate 50 mg PO BID 06/27/18 07/20/18 Sertraline HCl 100 mg PO DAILY 06/27/18 07/20/18 Simvastatin 20 mg PO QPM 06/27/18 07/20/18 metFORMIN [Glucophage] 500 mg PO BIDWM 06/27/18 07/26/18 Aspirin [Aspirin EC] 81 mg PO DAILY 06/29/18 07/20/18 Valsartan 80 mg PO DAILY 07/20/18 07/20/18 Diphenoxylate/Atropine [Lomotil] 1 each PO QID PRN #15 tablet 07/26/18 Fluticasone [Flonase] 1 sprays FÁTIMA DAILY PRN #1 bottle 07/26/18 Loperamide [Imodium] 2 mg PO QID PRN #15 capsule 07/26/18 amLODIPine [Norvasc] 2.5 mg PO DAILY #10 tablet 07/26/18 clonazePAM [KlonoPIN] 1 mg PO TID PRN #15 tablet 07/26/18 - Allergies Allergies/Adverse Reactions: Allergies Allergy/AdvReac Type Severity Reaction Status Date / Time hydroxyzine Allergy Itching Verified 07/17/18 13:40 lorazepam Allergy Emesis Verified 07/17/18 13:40 meclizine Allergy Emesis Verified 07/17/18 13:40 Review of Systems - Constitutional Constitutional: reports: Fatigue - Eyes Eyes: denies: Pain - Ears, Nose & Throat Ears, Nose & Throat: denies: Ear pain - Cardiovascular Cariovascular: denies: Irregular heart rate, Palpitations, Chest pain - Respiratory Respiratory: denies: Cough - Gastrointestinal Gastrointestinal: denies: Abdominal pain - Musculoskeletal Musculoskeletal: reports: Back pain - Integumentary Integumentary: denies: Rash Exam - Vital Signs Reviewed Vital Signs: Yes Vital Signs: Vital Signs x48h Temp Pulse Resp BP Pulse Ox 07/28/18 06:44 36.5 C 96 16 125/67 97 - Physical Exam General Appearance: positive: No acute distress Eyes Bilateral: positive: No lid inflammation, Conjunctivae nml, No scleral icterus ENT: positive: No signs of dehydration Neck: positive: Trachea midline Respiratory: positive: Chest non-tender, No respiratory distress, Breath sounds nml Cardiovascular: positive: Regular rate & rhythm Abdomen: positive: Non-tender, Nml bowel sounds, No distention, Other (Obese.) Skin: positive: Color nml Extremities: positive: Non-tender, Nml appearance Neurologic/Psychiatric: positive: Oriented x3, Motor nml, Sensation nml, Mood/affect nml Comments/Other: Portacath in good position in LEFT chest. No erythema or ecchymosis. Results - Lab Results Lab results reviewed: No - Diagnostic Imaging Results Diagnostic Imaging Results: positive: Final report reviewed, Read independently Sepsis Event Note (H) - Evaluation Current Stage of Sepsis: Ruled out Impression/Plan - Problem List Problem List: Portacath revision or replacement. The indications, procedure, alternatives including simply removing the Port-A-Cath or no procedure at all, and possible complications including but not limited to infection, bleeding, pneumothorax requiring tube thoracostomy, and were fully explained to the patient all questions were answered. Verbal and written consent was obtained. The patient in preparation for this has been n.p.o. She will receive antibiotics for prophylaxis against surgical infection. Teds and Venodyne's will be placed for prophylaxis against deep venous thrombosis. The patient has been given an opportunity to ask any and all questions. The patient has indicated that she wishes to proceed 20 minutes of [id number] time was spent with the patient, almost all in explanation and discussion, coordination of their care and completion of the requisite paperwork Dragon disclaimer: This document was created in part using voice recognition technology. Because of the inherent limitations of the system ([employer]'s Dragon Dictate user manual states that the licensee understands that speech recognition is a statistical process and that recognition errors are inherent in the process), occasional same sounding word substitutions and grammatical errors do occur and persist despite proofreading. Please read this document for context.
[2018-07-28] MEDS ORDERED: BUPIVACAINE 0.5% PF 10 ML VIAL ONE (07:12)
[2018-07-28] MEDS ORDERED: LIDOCAINE-MPF 2% 5 ML VIAL IM ONE (07:30)
[2018-07-28] MEDS ORDERED: ONDANSETRON 4 MG/2 ML VIAL IVP ONE (07:30)
[2018-07-28] MEDS ORDERED: fentaNYL 100 MCG/2 ML VIAL IVP ONE (07:30)
[2018-07-28] MEDS ORDERED: MIDAZOLAM 2 MG/2 ML VIAL IVP ONE (07:30)
[2018-07-28] MEDS ORDERED: PROPOFOL 200 MG/20 ML VIAL IVP ONE (07:30)
[2018-07-28] MEDS ORDERED: ePHEDrine 50 MG/ML VIAL IVP ONE (07:30)
[2018-07-28] MEDS ORDERED: BUPIVACAINE 0.5% PF 30 ML VIAL SUBQ ONE ×2 (07:56)
[2018-07-28] MEDS ORDERED: ceFAZolin 3 GM in SODIUM CHLORIDE 0.9% 100ML 100 ML IV ONE (08:00)
[2018-07-28] MEDS ORDERED: ONDANSETRON 4 MG/2 ML VIAL IVP PRN (08:16)
[2018-07-28] MEDS ORDERED: HYDROcod/ACETAM 5/325 MG TABLET PO PRN (08:16)
[2018-07-28] MEDS ORDERED: HYDROmorphone 0.5 MG/0.5 ML SYRINGE IVP PRN (08:16)
--- NOTE | 2018-07-28 08:24 | OPERATIVE REPORT ---
Operative Report - General Procedure Date: 07/28/18 Planned Procedure: Replacement or revision Port-A-Cath Pre-Op Diagnosis: Nonfunctioning Port-A-Cath Procedure Performed: Revision Port-A-Cath Post Op Diagnosis: Kink in catheter - Procedure Note Primary Surgeon: Jovany Jenkins MD Anesthesia Provider: Donell Graham CRNA Anesthesia Technique: General ET tube, Local (10 mL of half percent Marcaine) IV Fluids (mL): 200 Estimated Blood Loss (mL): 15 Complications: None - Other Other Information/Narrative: OPERATIVE DESCRIPTION/REPORT: After verbal and written informed consent was obtained detailing the risks of infection, bleeding requiring transfusion with its risks, nerve injury, and , and after I met with the patient confirming the surgery and the site of the surgery, the patient was brought to the operative suite and placed supine on the operating table. Great care was taken to avoid pressure points to prevent pressure necrosis or nerve injury. Monitoring devices were applied along with TEDs and pneumatic compressive stockings (to prevent DVT). The patient received preoperative antibiotics for surgical prophylaxis. Donell Graham CRNA sedated and anesthetized the patient for the entire procedure. The patient was prepped and draped in the usual sterile manner. A "time in" then confirmed that the patient was identified with 3 identifiers (name, date and medical record number), the history and physical was in the chart, the signed consent confirming the procedure was in the chart, the patient was in the correct position, the aforementioned prophylactic measures were in place or given, we had the correct personnel and equipment to complete the procedure and that anesthesia, surgery and nursing were given an opportunity to express any concerns. With the agreement of everyone in the room, we proceeded with the operation. The previous incision was opened using a 15 blade knife and dissection down to the Port-A-Cath was completed using Bovie electrocautery. Once the Port-A-Cath and catheter were exposed it was clear that there was a kink in the catheter that was completely obstructing the catheter. The stitch holding the Port-A-Cath was cut and the Port-A-Cath was brought out from the wound and tested using heparinized saline in a syringe outfitted with a Ayala needle. There was easy flush and easy return of blood. This indicated to me that the kink was the source of the problem. The tract of the catheter was widely opened using Bovie electrocautery and with a circular motion to untwist the catheter this was replaced back and and the Port-A-Cath secured to the subcutaneous tissues with 2 3-0 Prolene sutures on either side of the port. I again tested the port with heparinized saline and again there was easy flush and easy return of blood. A repeat chest x-ray was not necessary as I did not use a needle to access the subclavian vein but I will get a chest x-ray in recovery. The subcutaneous tissue was approximated using 3-0 Vicryl and the skin incisions were approximated with 4-0 Monocryl in a subcuticular fashion. The skin prep was washed off and prepped with benzoin. Steristrips were applied. At this point a time out was performed that confirmed that all the counts were correct, the procedure that was performed, the blood loss, the IV fluids administered, and the patients condition. A dressing was placed on the wound. Having t olerated the procedure well, the patient was taken to short stay in good and stable condition. The patient was instructed that the Portacath could be used immediately. [employer] disclaimer: This document was created in part using voice recognition technology. Because of the inherent limitations of the system ([employer]'s [employer] Dictate user manual states that the licensee understands that speech recognition is a statistical process and that recognition errors are inherent in the process), occasional same sounding word substitutions and grammatical errors do occur and persist despite proofreading. Please read this document for context.
--- NOTE | 2018-07-28 09:22 | XRAY Report ---
Reason: PORT PLACEMENT OR #3 Procedure Date: 07/28/2018 Accession Number: [id number] / [id number] Procedure: XR - Chest for Line Placement CPT Code: FULL RESULT: EXAM: CHEST RADIOGRAPHY EXAM DATE: 07/28/2018 09:00 AM. CLINICAL HISTORY: Tunneled right CHEST PORT REVISION COMPARISON: CHEST FOR LINE PLACEMENT 07/22/2018 1:37 PM. TECHNIQUE: 1 view. FINDINGS: Lungs/Pleura: Hypoventilatory chest with no definite acute process. No right pneumothorax. Mediastinum: Within exam limitations, the cardiomediastinal contour is normal. Other: The tip of the previously placed right PICC line is in satisfactory position. It appears that the previously placed right subclavian tunneled port has been revised. The tip is in the superior right atrium. The port catheter no longer appears kinked, but this finding should be correlated with poor function. IMPRESSION: The previously placed tunneled right subclavian chest port appears to have been revised as noted above. No acute cardiopulmonary abnormality. RADIA
[2018-07-28] MEDS ORDERED: HYDROcod/ACETAM 5/325 MG TABLET ONE (09:48)
[2018-07-28 10:16] VITALS: BP 136/72
== END 2018-07-28 06:14 | disposition home or self-care (01) ==
LOC: SDS 06:13
PROVIDERS: ATTEND Surgery
PROC: 0JWT0XZ Revision of Tunneled Vascular Access Device in Trunk Subcutaneous Tissue and Fascia, Open Approach (ICD-10-PCS; principal; 2018-07-28 07:30)
DX: Z45.2 Encounter for adjustment and management of vascular access device (principal); I10 Essential (primary) hypertension; G47.30 Sleep apnea, unspecified; E11.42 Type 2 diabetes mellitus with diabetic polyneuropathy; E11.51 Type 2 diabetes mellitus with diabetic peripheral angiopathy without gangrene; Z79.84 Long term (current) use of oral hypoglycemic drugs; K21.9 Gastro-esophageal reflux disease without esophagitis
CPT/HCPCS: 36576; A9270; J7120; 71045

== ENCOUNTER 2018-07-30 10:46 | Inpatient (IN) | payer MEDICAID ==
[2018-07-30] MEDS ORDERED: LACTATED RINGERS 1,000 ML IV STA (11:14)
[2018-07-30] MEDS ORDERED: ACETAMINOPHEN 325 MG TABLET PO STA (11:15)
--- NOTE | 2018-07-30 11:18 | ED Physician Documentation ---
History of Present Illness - Stated complaint Stated Complaint: CHILLS/FEVER DIARRHEA - Chief complaint Chief Complaint: Abd Pain - History obtained from History obtained from: Patient, Family - History of Present Illness Timing: Today Pain level max: 7 Pain level now: 6 - Additonal information Additional information: 63-year-old female, currently undergoing chemotherapy for breast cancer, developed a fever this morning. Was recently in admitted for uncontrollable diarrhea. Negative stool culture. C. difficile was not tested. No acute findings on CT scan at that time. Her next chemotherapy is scheduled for Tuesday. She sees Dr. Lopez for oncology. She had a port revision done 2 days ago, there was a kink in the line and this was unkinked. She also has a PICC line in the right upper extremity. Review of Systems Ten Systems: 10 systems reviewed and negative Constitutional: reports: Fever, Chills Ears: denies: Ear pain Nose: reports: Rhinorrhea / runny nose (mild) Respiratory: reports: Cough GI: reports: Diarrhea (x3 last night has not been taking anti-diarrheal meds). denies: Vomiting, Hematemesis, Bloody / black stool : denies: Dysuria Skin: denies: Rash Musculoskeletal: denies: Neck pain, Back pain Neurologic: denies: Headache PD PAST MEDICAL HISTORY - Past Medical History Cardiovascular: Hypertension, High cholesterol, Peripheral Vascular Disease, M urmur Respiratory: Sleep apnea, CPAP use (states that she no longer needs one) Neuro: Headaches, Peripheral neuropathy, Fainting Endocrine/Autoimmune: Type 2 diabetes GI: GERD, Cholelithiasis SOFT MUD MOLDER: Miscarriage(s) (x1), Breast cancer : None HEENT: Chronic vision loss (acute vision loss), Chronic sinusitis Psych: Anxiety Musculoskeletal: Osteoarthritis Derm: None, Other - Past Surgical History Past Surgical History: Yes Ortho: Spine surgery (s/p laminectomy 1994 and 2016, complicated by a nicked spinal dura-repaired) /SOFT MUD MOLDER: Tubal ligation, Other (left breast bx) - Present Medications Home Medications: Ambulatory Orders Medication Instructions Recorded Confirmed Diclofenac Sodium Dr [Voltaren] 75 mg PO DAILY 06/27/18 07/30/18 Gabapentin 300 mg PO QPM 06/27/18 07/30/18 Metoprolol Tartrate 50 mg PO BID 06/27/18 07/30/18 Sertraline HCl 100 mg PO DAILY 06/27/18 07/30/18 Simvastatin 20 mg PO QPM 06/27/18 07/30/18 metFORMIN [Glucophage] 500 mg PO BIDWM 06/27/18 07/30/18 Aspirin [Aspirin EC] 81 mg PO DAILY 06/29/18 07/30/18 Valsartan 80 mg PO DAILY 07/20/18 07/30/18 Diphenoxylate/Atropine [Lomotil] 1 each PO QID PRN #15 tablet 07/26/18 07/30/18 Fluticasone [Flonase] 1 sprays FÁTIMA DAILY PRN #1 bottle 07/26/18 07/30/18 Loperamide [Imodium] 2 mg PO QID PRN #15 capsule 07/26/18 07/30/18 amLODIPine [Norvasc] 2.5 mg PO DAILY #10 tablet 07/26/18 07/30/18 clonazePAM [KlonoPIN] 1 mg PO TID PRN #15 tablet 07/26/18 07/30/18 - Allergies Allergies/Adverse Reactions: Allergies Allergy/AdvReac Type Severity Reaction Status Date / Time hydroxyzine Allergy Itching Verified 07/30/18 10:52 lorazepam Allergy Emesis Verified 07/30/18 10:52 meclizine Allergy Emesis Verified 07/30/18 10:52 - Social History Does the pt smoke?: No Smoking Status: Never smoker - POLST Patient has POLST: No POLST Status: Full Code PD ED PE NORMAL - Vitals Vital signs reviewed: Yes - General General: Alert and oriented X 3, No acute distress, Well developed/nourished - HEENT HEENT: PERRL, Moist mucous membranes - Neck Neck: Supple, no meningeal sign - Cardiac Cardiac: RRR, Strong equal pulses - Respiratory Respiratory: No respiratory distress, Clear bilaterally - Abdomen Abdomen: Soft, Non tender, Non distended - Derm Derm: Warm and dry, No rash - Extremities Extremities: No calf tenderness / cord - Neuro Neuro: Alert and oriented X 3 - Psych Psych: Normal mood, Normal affect - Free text exam Free text exam: PICC line in right upper extremity without signs of infection. Port and right upper chest without signs of infection Results - Vitals Vitals: Vital Signs - 24 hr 07/30/18 07/30/18 07/30/18 10:47 11:14 11:43 Temperature 39.4 C H Heart Rate 83 143 H 78 Respiratory 18 25 H 18 Rate Blood Pressure 152/95 H 117/85 H 148/78 H O2 Saturation 94 99 95 07/30/18 07/30/18 07/30/18 11:44 12:00 12:30 Temperature Heart Rate 148 H 144 H 144 H Respiratory 20 22 Rate Blood Pressure 114/108 H 144/91 H O2 Saturation 93 92 07/30/18 07/30/18 07/30/18 12:52 13:00 13:10 Temperature 38.8 C H Heart Rate 137 H Respiratory 20 Rate Blood Pressure 143/88 H 160/109 H O2 Saturation 92 07/30/18 07/30/18 07/30/18 13:15 13:30 13:45 Temperature Heart Rate 85 Respiratory 24 Rate Blood Pressure 143/88 H 143/71 H 148/115 H O2 Saturation 94 07/30/18 07/30/18 07/30/18 13:55 13:57 14:00 Temperature Heart Rate 160 H 151 H Respiratory 20 Rate Blood Pressure 122/66 122/66 O2 Saturation 90 L Oxygen O2 Source Room air - EKG (time done) 1241 Rate: Rate (enter#) (146) Rhythm: SVT [place]: Normal Intervals: Normal MS QRS: Normal Ischemia: ST depression ( likely rate related.) - Labs Labs: Laboratory Tests 07/30/18 07/30/18 07/30/18 11:28 11:37 11:37 WBC 10.4 RBC 3.76 L Hgb 12.1 Hct 36.2 L MCV 96.3 MCH 32.2 H MCHC 33.5 RDW 13.6 Plt Count 158 MPV 8.3 Neut # (Auto) 9.5 H Lymph # (Auto) 0.5 L [place] # (Auto) 0.4 Eos # (Auto) 0.0 Baso # (Auto) 0.1 Absolute Nucleated RBC 0.00 Nucleated RBC % 0.0 Sodium 137 Potassium 3.6 Chloride 103 Carbon Dioxide 24 Anion Gap 10.0 BUN 13 Creatinine 0.5 Estimated GFR (MDRD) 125 Glucose 129 H Lactic Acid Calcium 8.4 L Total Bilirubin 0.5 AST 38 ALT 45 Alkaline Phosphatase 92 Total Protein 6.6 L Albumin 3.5 Globulin 3.1 Albumin/Globulin Ratio 1.1 Lipase 97 H Urine Color YELLOW Urine Clarity CLEAR Urine pH 5.5 Ur Specific [place] 1.025 Urine Protein NEGATIVE Urine Glucose (UA) NEGATIVE Urine Ketones NEGATIVE Urine Occult Blood TRACE-INTA Urine Nitrite NEGATIVE Urine Bilirubin NEGATIVE Urine Urobilinogen 0.2 (NORMAL) Ur Leukocyte Esterase NEGATIVE Ur Microscopic Review NOT INDICATED Urine Culture Comments NOT INDICATED Influenza A (Rapid) Influenza B (Rapid) 07/30/18 07/30/18 11:37 13:20 WBC RBC Hgb Hct MCV MCH MCHC RDW Plt Count MPV Neut # (Auto) Lymph # (Auto) [place] # (Auto) Eos # (Auto) Baso # (Auto) Absolute Nucleated RBC Nucleated RBC % Sodium Potassium Chloride Carbon Dioxide Anion Gap BUN Creatinine Estimated GFR (MDRD) Glucose Lactic Acid 1.8 Calcium Total Bilirubin AST ALT Alkaline Phosphatase Total Protein Albumin Globulin Albumin/Globulin Ratio Lipase Urine Color Urine Clarity Urine pH Ur Specific [place] Urine Protein Urine Glucose (UA) Urine Ketones Urine Occult Blood Urine Nitrite Urine Bilirubin Urine Urobilinogen Ur Leukocyte Esterase Ur Microscopic Review Urine Culture Comments Influenza A (Rapid) Negative Influenza B (Rapid) Negative - Rads (name of study) cxr Radiology: Prelim report reviewed, EMP read contemporaneously, See rad report (No acute radiographic abnormality identified. Right PICC tip near the cavoatrial junction.) PD MEDICAL DECISION MAKING - ED course Complexity details: reviewed old records, reviewed results, re-evaluated patient, considered differential, d/w patient, d/w family, d/w testing consultant ED course: 63-year-old female with breast cancer undergoing TCH P chemotherapy. Discussed the case with Dr. Rocha, Oncology on-call who recommends IV antibiotics and observation overnight. She does go spontaneously into SVT and he feels that this may be secondary to her chemotherapy. She is normally on metoprolol. Was given Cardizem and metoprolol IV here. She reverted back to a sinus rhythm. No diarrhea in the emergency department. Did have diarrhea x3 last night but was not taking her antidiarrheal medications. Chest x-ray shows no pneumonia. Urinalysis is without infection. Possible that this is related to Her recent port manipulation or PICC line placement. Given IV antibiotics here and will place in observation. Discussed case with the hospitalist, Dr. Branham who accepts. She will check with the oncologist to see if they would like her PICC line pulled. Antibiotics were pulled from the port and the PICC. This document was made in part using voice recognition software. While efforts are made to proofread this document, sound alike and grammatical errors may occur. Departure - Departure Disposition: ED Place in Observation Clinical Impression: SVT (supraventricular tachycardia), Central venous catheter in place on admission Fever Qualifiers: Fever type: unspecified Qualified Code(s): R50.9 - Fever, unspecified
[2018-07-30 11:47] LABS: BASOPHILS # (AUTO) 0.1 10^3/uL (0.0-0.1); BASOPHILS % (AUTO) 0.6 %; EOSINOPHILS % (AUTO) 0.2 %; HGB - HEMOGLOBIN 12.1 g/dL (12.0-16.0); LYMPHOCYTES # (AUTO) 0.5 10^3/uL (1.5-3.5); LYMPHOCYTES % (AUTO) 5.2 %; MEAN CORPUSCULAR HEMOGLOBIN 32.2 pg (27.0-31.0); MEAN CORPUSCULAR HGB CONC 33.5 g/dL (32.0-36.0); MEAN CORPUSCULAR VOLUME 96.3 fL (81.0-99.0); MEAN PLATELET VOLUME 8.3 fL (7.9-10.8); MONOCYTES # (AUTO) 0.4 10^3/uL (0.0-1.0); MONOCYTES % (AUTO) 3.4 %; NEUTROPHILS # (AUTO) 9.5 10^3/uL (1.5-6.6); NEUTROPHILS % (AUTO) 90.6 %; PLT - PLATELET COUNT 158 10^3/uL (130-450); RED BLOOD COUNT 3.76 10^6/uL (4.20-5.40); RED CELL DISTRIBUTION WIDTH 13.6 % (12.0-15.0); WHITE BLOOD COUNT 10.4 x10^3/uL (4.8-10.8)
[2018-07-30 11:51] LABS: BILIRUBIN,URINE NEGATIVE (NEGATIVE); GLUCOSE, URINE (UA) NEGATIVE (NEGATIVE); KETONES,URINE (UA) NEGATIVE (NEGATIVE); LEUKOCYTE ESTERASE, URINE NEGATIVE (NEGATIVE); NITRITE,URINE NEGATIVE (NEGATIVE); OCCULT BLOOD,URINE TRACE-INTA (NEGATIVE); PH,URINE 5.5 PH (5.0-7.5); PROTEIN,URINE NEGATIVE (NEGATIVE); UROBILINOGEN,URINE 0.2 (NORMAL) E.U./dL (NORMAL)
[2018-07-30 11:52] LABS: CLARITY,URINE CLEAR (CLEAR)
[2018-07-30 11:59] LABS: ALBUMIN 3.5 g/dL (3.2-5.5); ALBUMIN/GLOBULIN RATIO 1.1 (1.0-2.2); BILIRUBIN,TOTAL 0.5 mg/dL (0.2-1.0); CALCIUM 8.4 mg/dL (8.5-10.3); CREATININE 0.5 mg/dL (0.4-1.0); TOTAL PROTEIN 6.6 g/dL (6.7-8.2)
--- NOTE | 2018-07-30 12:05 | XRAY Report ---
Reason: fever Procedure Date: 07/30/2018 Accession Number: [id number] / [id number] Procedure: XR - Chest 1 View X-Ray CPT Code: 33456 FULL RESULT: EXAM: CHEST RADIOGRAPHY EXAM DATE: 07/30/2018 11:50 AM. CLINICAL HISTORY: FEVER. COMPARISON: 07/28/2018. TECHNIQUE: 1 view. FINDINGS: Lungs/Pleura: No new focal opacities evident. No pleural effusion. No pneumothorax. Mediastinum: Heart and mediastinum appear stable. Other: Right PICC tip is near the cavoatrial junction. IMPRESSION: 1. No acute radiographic abnormality identified. 2. Right PICC tip near the cavoatrial junction. RADIA
[2018-07-30] MEDS ORDERED: diltiaZEM INJ 5 MG/ML VIAL IVP STA (12:49)
[2018-07-30] MEDS ORDERED: IBUPROFEN 800 MG TABLET PO STA (13:42)
[2018-07-30] MEDS ORDERED: METOPROLOL 5 MG/5 ML VIAL IVP STA (13:53)
[2018-07-30] MEDS ORDERED: CEFEPIME 1 GM in SODIUM CHLORIDE 0.9% MINIBAG 100 ML IV STA (13:57)
[2018-07-30] MEDS ORDERED: VANCOMYCIN INJ 1.75 GM in SODIUM CHLORIDE 0.9% 500 ML IV STA (13:57)
[2018-07-30] MEDS ORDERED: ONDANSETRON ODT 4 MG TABLET TL PRN (14:26)
[2018-07-30] MEDS ORDERED: ONDANSETRON 4 MG/2 ML VIAL IVP PRN (14:26)
[2018-07-30] MEDS ORDERED: PROCHLORPERAZINE 10 MG/2 ML VIAL IVP PRN (14:26)
[2018-07-30] MEDS ORDERED: oxyCODONE 5 MG TABLET PO PRN (14:26)
[2018-07-30] MEDS ORDERED: clonazePAM 0.5 MG TABLET PO PRN (14:28)
[2018-07-30] MEDS ORDERED: LOPERAMIDE 2 MG CAPSULE PO PRN (14:28)
[2018-07-30] MEDS: SODIUM CHLORIDE FLUSH 0.9% 10 ML SYRINGE IVP SCH (16:25)
[2018-07-30] MEDS: SODIUM CHLORIDE 0.9% 1,000 ML IV SCH (16:25)
[2018-07-30] MEDS: SODIUM CHLORIDE FLUSH 0.9% 10 ML SYRINGE IVP PRN ×3 (16:25→22:28)
--- NOTE | 2018-07-30 19:00 | HISTORY & PHYSICAL EXAMINATION ---
DATE OF SERVICE: 07/30/2018 Physician: Latoya Branham MD PRIMARY CARE PROVIDER: Bisi Urban DNP ONCOLOGIST: Harika Lopez MD ADMITTING PROVIDER: Latoya Branham MD CHIEF COMPLAINT: Rigors and fever. HISTORY OF PRESENT ILLNESS: The patient is an unfortunate, morbidly obese female who has been recently diagnosed with breast cancer. She noticed a breast mass in April 2018 and a biopsy in June 2018 showed her to have infiltrating ductal carcinoma that is ER positive, MT positive, Ki-67 40% positive, and HER2/franchesca positive. Plan is for her to get TCHP x6 cycles. She received 1 cycle, and after that 1 cycle, developed severe mucositis, nausea, vomiting, diarrhea. [place] [facility] [place], and when she failed outpatient management, she was asked to be direct admitted to the hospital. She was a direct admit on 06/19/2018 and discharged on 06/25/2018. In the few days that she has been home, she says that her diarrhea is still 3-4 times a day. It is foul smelling, blackish, and unchanged. There is no blood in it. She has been able to eat a little bit more food and thought she was on the road to recovery in anticipation of chemo on 08/01/2018. With her hospitalization, IV access was poor, and she did get a PICC line placed. On 07/28/2018, she had a port placed by Dr. Jenkins, and he requested the PICC line be removed. The patient is under the impression that Dr. Lopez wanted the PICC line and the port to stay in place until her chemo on 08/01/2018. While at home, there have been no other people visiting or that are ill. She denies coughing, wheezing, shortness of breath. She denies sore throat, rhinorrhea, coryza. No eustachian tube dysfunction or ear pain. She denies any chest congestion. Positive review of systems on her GI status with regard to diarrhea. That is unchanged. She denies any new body rashes, new skin lesions. She has mild right lower quadrant and right mid axillary pain that she said has been present since her chemotherapy, associated with her diarrhea. That is unchanged. While she had severe dysuria with her last admission, she denies urgency, frequency, dysuria right now. She denies any flank pain. She has a headache today. She disputes the fact that she has chronic headaches in her past medical history. Today, she developed severe rigors. She said she was freezing and could not get warm. She was monitoring her temperature, and Dr. Lopez told her that whenever it got to be over 100.4, to come to the emergency room. In the emergency room, the patient's temperature was 39.4. She was tachycardic to 143. No source of infection was found, other than she has a port and a PICC line. The line sites are clean, no fluctuance, redness, or heat. Lung exam and belly exam are normal. Urinalysis is clear. White cell count is normal at 10.4. Influenza A and B are negative. Dr. Martinez contacted Oncology to let them know that she was here. They have asked her to be placed in observation and treated with empiric antibiotic therapy to see if any source can be found over the next 24 hours. PAST MEDICAL HISTORY 1. Left breast infiltrating cancer, as above. 2. Type 2 diabetes mellitus. On metformin in the outpatient setting. Complicated by peripheral neuropathy, for which she takes gabapentin. 3. Hyperlipidemia. 4. Obstructive sleep apnea. Does not use CPAP anymore. 5. Depression with anxiety. 6. Chronic back pain. This lady has had 2 laminectomies in the lumbar spine in 1984, and also underwent spinal stenosis surgery in 2017, complicated by spinal dural sac rupture. She had rehab for 35 days because of it. 7. Irregular heartbeat, no known arrhythmia. 8. Cardiac murmur, no known pathology. 9. Superficial thrombophlebitis in the past, treated as varicose vein stripping in 1983. 10. Tonsillectomy. 11. G3, P2-0-1-2. Status post tubal ligation in 1982, and status post D and C in 1988. 12. Vestibular neuritis and chronic vertigo. 13. Asymptomatic cholelithiasis. This was found incidentally on a nuclear medicine bone scan. 14. Morbid obesity. ALLERGIES: SHE IS ALLERGIC TO HYDROXYZINE, LORAZEPAM, AND MECLIZINE. HYDROXYZINE CAUSES ITCHING, AND LORAZEPAM AND MECLIZINE CAUSE EMESIS. MEDICATIONS 1. Aspirin 81 mg a day. 2. Voltaren DR 75 mg daily. 3. Gabapentin 300 mg in the evening. 4. Glucophage 500 mg p.o. b.i.d. 5. Metoprolol tartrate 50 mg p.o. b.i.d. 6. Sertraline 100 mg daily. 7. Simvastatin 20 mg daily. 8. Valsartan 80 mg daily. 9. Norvasc 2.5 mg daily. 10. Klonopin 1 mg p.o. t.i.d. as needed. 11. Lomotil p.r.n. 12. Flonase nasal spray daily. 13. Imodium 2 mg p.o. q.i.d. p.r.n. 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 Lives alone in her own home. Both of her children are employed with minimum wage jobs. She states they need their jobs to pay their bills and really cannot move in to help her. She has never smoked. She rarely drinks. She is in the process of trying to get in-home support to stay with her, but it is very expensive. Her main requirement is somebody to stay with her at night because it is very difficult to be alone at night. FAMILY HISTORY: Dad of complications of brain tumor, but had dementia. Mom has had thyroid disease, hypertension, obesity, heart disease. Six siblings are healthy. Two children are completely healthy. REVIEW OF SYSTEMS CONSTITUTIONAL: There have been no fevers, sweats, until chills today. No unexpected weight changes. ENT: In the past, she has had an episode of vision loss, associated with syncope. That was many years ago. At this point in time, she has had some mucositis and mouth pain, taken care of by [facility] [employer]. Denies dysarthria, dysphagia. PULMONARY, CARDIAC, GI, : Reviewed, as above. MUSCULOSKELETAL: Chronic back pain. She must use the roll over method to roll over in bed and then sit up, and demonstrates that for me right now. She has chronic back pain, chronic hand pain, knee pain. SKIN: Without any rashes or new lesions. PSYCHIATRIC: Anxiety and depression are not well controlled at this time, as she goes through this chemotherapy and lives alone. She is not suicidal, delusional. CENTRAL NERVOUS SYSTEM: Positive for neuropathy, dysesthesias, and syncope in the remote past associated with vasovagal syncope, but no history of seizures, memory loss. PHYSICAL EXAMINATION GENERAL: She is a morbidly obese, pleasant female lying in her bed. She asked for some help to sit up to eat her dinner. She is able to roll over, and then reach out with her right hand and use my hand to pull herself up. VITAL SIGNS: Temperature is 37.3, pulse is 81, blood pressure 120/49, respirations 18, 97% on 3 liters. HEAD AND NECK: Unremarkable. Normal facial symmetry. The back of her throat is normal. There is no yeast in her mouth. Speech is normal. No rhinorrhea, no coryza, no hoarseness. Neck is supple, difficult to assess for JVD because of obesity, but no goiter, bruits, or adenopathy. LUNGS: Diminished breath sounds at the bases. They clear substantially in the mid lung mora, and as you move upper lungs to the apices, you hear stridor and scant wheezing. When I move to the front of her chest, the stridor and scant wheezing get louder, especially along her throat. She has no increased respiratory effort, no use of accessory muscles. No dullness, rhonchi, or egophony. CARDIAC: Regular rate and rhythm. There are many ectopic beats. She has a systolic ejection murmur, loudest at the right upper sternal border. No diastolic murmur. ABDOMEN: Hugely obese, soft, and unable to be assessed for organomegaly. Normal bowel sounds. Slightly tender in the suprapubic and periumbilical region with palpation, but no rebound or guarding. She does complain of some left posterior superior SI pain, rubs that, and says "my kidneys hurt." I point out to her that her kidneys are much higher underneath her rib cage. EXTREMITIES: Large, but at this time, warm. Skin turgor normal. No clubbing, cyanosis, or edema. No venous stasis, dermatitis. Good foot pulses. NEUROLOGIC: The patient has difficulty moving because of back pain and large size; however, she is able to pull herself up using my hand. Sits at the side of the bed, and using fine motor coordination, is able to start lifting lids off dinner, put sugar in her tea, cut her food, and eat. She has no focal motor losses. Cranial nerves II-XII appear grossly intact. LABORATORY DATA: White cell count is 10.4, hemoglobin 12.1, hematocrit 36.2, platelets 158. CMP is normal, except for a slight glucose rise of 129. Lactic acid 1.9. Urinalysis is negative. Influenza A and B are negative. DIAGNOSTIC DATA: Chest x-ray has no acute radiographic abnormality identified. A right PICC tip near the cavoatrial junction. ASSESSMENT/PLAN 1. Fever. In patient with 2 central lines, has breast cancer and is s/p 1 cycle of chemo ~4 weeks ago. While this patient has a PICC line and a port line as possible source of infection, she appears to have no positive review of systems for lung, abdomen, or . I have to think that either the PICC or the port line may be a problem. I have spoken to Dr. Jenkins, and he wants the PICC line removed. However, the patient informs me that Dr. Lopez does not want the PICC line removed. We will have to speak to Dr. Lopez tomorrow, but I did remind the patient that either one of these could be the source of her infection. Plan: a. Attestation that the patient will be admitted less than 96 hours. b. Observation status. c. Adjust antibiotics on the basis of blood culture results. d. Continue to monitor the patient with frequent check-ins to make sure that evanescent lung infection is not going to present itself, since she has wheezing and rhonchi on upper lung. 2. Left breast infiltrating cancer. Second cycle due next week. I will make sure that Dr. Lopez knows that the patient is here, and I explained to the patient that it may be delayed somewhat until this issue of infection is laid to rest. 3. Chronic back pain. Tylenol and Voltaren written for. We will also give oxycodone p.r.n. 4. Essential hypertension. At this time, blood pressure controlled at 120/49 when she gets to the floor. She is on Norvasc 2.5 and Valsartan 80 daily. I may hold off on the Norvasc if her blood pressure stays this well controlled. 5. Type 2 diabetes mellitus, controlled, with complications of neuropathy, without long-term use of insulin. Plan: While in hospital, we will hold off on metformin and do sliding scale insulin. 6. FULL CODE STATUS. 7. Deep venous thrombosis prophylaxis will be NINO le. TD: 07/30/2018 18:15 MTDDarshana
[2018-07-30] MEDS: ACETAMINOPHEN 325 MG TABLET PO PRN (20:53)
[2018-07-30] MEDS: GABAPENTIN 300 MG CAPSULE PO SCH (20:53)
[2018-07-30] MEDS: METOPROLOL TARTRATE 50 MG TABLET PO SCH (20:53)
[2018-07-30] MEDS: CEFEPIME 1 GM in SODIUM CHLORIDE 0.9% MINIBAG 100 ML IV SCH (22:26)
[2018-07-30] MEDS ORDERED: SODIUM CHLORIDE FLUSH 0.9% 10 ML SYRINGE ONE (22:27)
[2018-07-31] MEDS: VANCOMYCIN INJ 1 GM, VANCOMYCIN INJ 250 MG in SODIUM CHLORIDE 0.9% 250 ML IV SCH ×3 (00:12→21:00)
[2018-07-31] MEDS: SODIUM CHLORIDE FLUSH 0.9% 10 ML SYRINGE IVP SCH ×3 (00:19→21:00)
[2018-07-31] MEDS: SODIUM CHLORIDE 0.9% 1,000 ML IV SCH ×3 (03:26→23:46)
[2018-07-31] MEDS: ACETAMINOPHEN 325 MG TABLET PO PRN ×2 (05:02→14:35)
[2018-07-31] MEDS: DIPHENOX/ATROPINE 2.5/0.025 MG TABLET PO PRN (05:08)
[2018-07-31] MEDS: CEFEPIME 1 GM in SODIUM CHLORIDE 0.9% MINIBAG 100 ML IV SCH ×4 (06:01→23:06)
[2018-07-31 06:25] LABS: CREATININE 0.5 mg/dL (0.4-1.0)
[2018-07-31] MEDS: POLYETHYLENE GLYCOL 3350 17 GM PACKET PO SCH (08:00)
[2018-07-31] MEDS: SERTRALINE 50 MG TABLET PO SCH (08:58)
[2018-07-31] MEDS: LOSARTAN 50 MG TABLET PO SCH (08:58)
[2018-07-31] MEDS: ASPIRIN EC 81 MG TABLET PO SCH (08:58)
[2018-07-31] MEDS: DICLOFENAC SODIUM DR 75 MG TABLET PO SCH (08:58)
[2018-07-31] MEDS: amLODIPine 5 MG TABLET PO SCH (08:58)
[2018-07-31] MEDS: LOPERAMIDE 2 MG CAPSULE PO SCH ×2 (08:58→22:01)
[2018-07-31] MEDS: METOPROLOL TARTRATE 50 MG TABLET PO SCH (08:59)
[2018-07-31] MEDS: clonazePAM 0.5 MG TABLET PO SCH ×2 (13:27→21:59)
[2018-07-31] MEDS: POTASSIUM CHLORIDE 20 MEQ TABLET PO SCH ×2 (14:35→21:59)
[2018-07-31 15:39] LABS: VANCOMYCIN,TROUGH 12.9 ug/mL (10.0-20.0)
--- NOTE | 2018-07-31 20:16 | PROVIDER PROGRESS NOTE ---
Subjective - Prog Note Date Prog Note Date: 07/31/18 Prog Note Time: 20:16 - Subjective Pt reports feeling: Improved Subjective: It is been a long day for the patient. We have found out that she does have positive blood cultures. It resulted in a long complicated treatment plan and she is disappointed. Understandably so. This woman has had horrendous reactions to her first cycle of chemotherapy. Now this complication with the PICC line versus a port line. We have pulled the PICC line today. This is after we already accessed the port and made sure it was working. After the PICC line was pulled, the port line has become increasingly difficult to handle. I am asking the nurses not to use it right now and to put in a peripheral line since it is difficult to push IV meds and you need a lot of pressure to do it. Since the patient has been here, her T-max yesterday was 38.8. She was febrile most of yesterday. Today she is been 38 8 around 5 in the morning. Tonight she is been 37 8. Current Medications - Current Medications Current Medications: Active Medications Acetaminophen (Tylenol) 650 mg PO Q4HR PRN PRN Reason: Pain 1 to 4 Last Admin: 07/31/18 14:35 Dose: 650 mg Amlodipine Besylate (Norvasc) 2.5 mg PO DAILY [facility] Last Admin: 07/31/18 08:58 Dose: 2.5 mg Aspirin (Ecotrin) 81 mg PO DAILY [facility] Last Admin: 07/31/18 08:58 Dose: 81 mg Clonazepam (Klonopin) 1 mg PO TID [facility] Last Admin: 07/31/18 13:27 Dose: 1 mg Diclofenac Sodium (Voltaren) 75 mg PO DAILY [facility] Last Admin: 07/31/18 08:58 Dose: 75 mg Diphenoxylate HCl/Atropine (Lomotil) 1 tab PO QID PRN PRN Reason: Diarrhea Last Admin: 07/31/18 05:08 Dose: 1 tab Gabapentin (Neurontin) 300 mg PO QPM [facility] Last Admin: 07/30/18 20:53 Dose: 300 mg Cefepime HCl 1 gm/ Sodium (Chloride) 100 mls @ 200 mls/hr IV TID [facility] Last Infusion: 07/31/18 14:56 Dose: Infused Sodium Chloride (Normal Saline 0.9%) 1,000 mls @ 100 mls/hr IV .Q10H [facility] Last Admin: 07/31/18 13:27 Dose: 100 mls/hr Vancomycin HCl 1 gm/Vancomycin HCl 250 mg/ Sodium Chloride 250 mls @ 167 mls/hr IV Q8H [facility] Last Infusion: 07/31/18 10:49 Dose: Infused Loperamide HCl (Imodium) 2 mg PO BID [facility] Last Admin: 07/31/18 08:58 Dose: 2 mg Losartan Potassium (Cozaar) 25 mg PO DAILY [facility] Last Admin: 07/31/18 08:58 Dose: 25 mg Metoprolol Tartrate (Lopressor) 50 mg PO BID [facility] Last Admin: 07/31/18 08:59 Dose: 50 mg Ondansetron HCl (Zofran Inj) 4 mg IVP Q6HR PRN PRN Reason: Nausea / Vomiting Ondansetron HCl (Zofran Odt) 4 mg TL Q6HR PRN PRN Reason: Nausea / Vomiting Oxycodone HCl (Roxicodone) 5 mg PO Q4HR PRN PRN Reason: Pain 5 to 7 Polyethylene Glycol (Miralax) 17 gm PO DAILY [facility] Last Admin: 07/31/18 08:00 Dose: Not Given Potassium Chloride (K-Dur) 20 meq PO TID [facility] Last Admin: 07/31/18 14:35 Dose: 20 meq Prochlorperazine Edisylate (Compazine Inj) 10 mg IVP Q6HR PRN PRN Reason: Nausea / Vomiting Sertraline HCl (Zoloft) 100 mg PO DAILY [facility] Last Admin: 07/31/18 08:58 Dose: 100 mg Sodium Chloride (Normal Saline Flush 0.9%) 10 ml IVP PRN PRN PRN Reason: NEEDED PER PROVIDER ORDERS Last Admin: 07/30/18 22:28 Dose: 10 ml Sodium Chloride (Normal Saline Flush 0.9%) 10 ml IVP 0100,0900,1700 [facility] Last Admin: 07/31/18 09:00 Dose: [address] [Voltaren] 75 mg PO DAILY 06/27/18 Gabapentin 300 mg PO QPM 06/27/18 Metoprolol Tartrate 50 mg PO BID 06/27/18 Sertraline HCl 100 mg PO DAILY 06/27/18 Simvastatin 20 mg PO QPM 06/27/18 metFORMIN [Glucophage] 500 mg PO BIDWM 06/27/18 Aspirin [Aspirin EC] 81 mg PO DAILY 06/29/18 Valsartan 80 mg PO DAILY 07/20/18 Objective - Vital Signs/Intake & Output Reviewed Vital Signs: Yes Vital Signs: Vital Signs x48h Temp Pulse Resp BP Pulse Ox 07/31/18 15:41 37.6 C H 65 20 102/62 94 07/31/18 13:00 37.8 C H 98 18 118/74 96 Intake & Output: Intake & Output 07/28/18 07/29/18 07/30/18 07/31/18 23:59 23:59 23:59 23:59 Intake Total 2368.333 2656.666 Output Total 1650 1675 Balance 718.333 981.666 - Objective General Appearance: positive: No acute distress, Alert, Other (Morbidly obese white female who has no rigors, is comfortable, and has sometimes difficulty getting out of bed because of weight and low back pain) Eyes Bilateral: positive: PERRL ENT: positive: Pharynx nml Neck: negative: Stiff neck, Carotid bruit Respiratory: positive: Chest non-tender. negative: Wheezes, Rales, Rhonchi Cardiovascular: positive: Regular rate & rhythm, Systolic murmur. negative: Gallop/S4, Friction rub Abdomen: positive: Non-tender, Nml bowel sounds, No distention, Other (obese) Skin: positive: Warm, Dry Extremities: positive: Full ROM, No pedal edema Neurologic/Psychiatric: positive: Oriented x3, CN's nml (2-12), Motor nml (but has to use help to role over, push up using hands, to sitting position bc of back pain). negative: Slurred/abnml speech, Depressed mood/affect - Lab Results Fish Bones: 07/30/18 11:37 07/31/18 06:10 Other Labs: Lab Results x24hrs 07/31/18 07/31/18 07/30/18 Range/Units 15:25 06:10 18:30 Sodium 139 (135-145) mmol/L Potassium 2.8 L (3.5-5.0) mmol/L Chloride 109 (101-111) mmol/L Carbon Dioxide 24 (21-32) mmol/L Anion Gap 6.0 (6-13) BUN 8 (6-20) mg/dL Creatinine 0.5 (0.4-1.0) mg/dL Estimated GFR (MDRD) 125 (>89) Glucose 130 H (70-100) mg/dL Calcium 7.0 L (8.5-10.3) mg/dL Last Dose Date 07/31/2018 Last Dose Time 10:49 Vancomycin Trough 12.9 (10.0-20.0) ug/mL C. difficile Tox B Gene NEGATIVE (NEGATIVE) ABX Reporting Has patient been on IV antibiotics over the past 48 hours?: Yes Assessment/Plan - Problem List (1) Bacteremia due to Staphylococcus aureus without sepsis Impression: She presented as fever, status post chemotherapy 1 cycle 4 weeks ago for breast cancer, and has 2 central lines. Chest x-ray negative, abdominal exam negative, urine negative. She did not have an elevated white cell count. And while she was febrile, she was not really tachycardic. She was admitted and then discharged charged last week because of nausea, vomiting, diarrhea, mucositis from her chemotherapy. During that time a PICC line was placed. She already had a port but it was not accessible because it was kinked. The port was revised July 28 and was useable. July 30 is when she started having fevers and rigors. Blood cultures are now positive for staph aureus. Plan: I spoke to [facility] infectious disease. Because this is a relatively new port, they feel that there is a diminished burden of biofilm layer from the Staph. So they feel that we can keep the port at this time. Contamination may have occurred because of multiple procedures and multiple handling. Instructions were to pull the PICC line, check an echocardiogram for vegetations, and vancomycin until we know if the staph aureus is MMSA or MRSA. She will need daily blood cultures until her cultures are proven negative. If it is MMSA, the patient could get away with taking Ancef. 6 g over 24 hours and that can be arranged depending on the infusion service. Or 2 grams q8 hours. If it is MRSA, she will need vancomycin every 12 hours minimum. The patient really wants to return to home. Hopefully an infusion service can provide her with vancomycin or Ancef. Because the port is now being difficult to access, I will start with a chest x- ray first. If the chest x-ray is not helpful I may have to have general surgery come to a consult and check it out. (2) Carcinoma of left breast Impression: She was seen by MADHAV Soto director of the medical ambulatory clinic. She had discussed the case with oncology. PICC line was recommended to be discontinued. She may have to have her chemotherapy changed. At this time the patient is very disappointed that chemotherapy will be delayed while she is being treated for this line infection. Qualifiers: Breast location: central portion of breast Estrogen receptor status: positive Patient sex: female Qualified Code(s): C50.112 - Malignant neoplasm of central portion of left female breast; Z17.0 - Estrogen receptor positive status [ER+] (3) Chronic back pain Impression: At home she takes Voltaren and Neurontin. The former is for the back and the latter is for peripheral neuropathy. We have added oxycodone 5 mg tablet as needed. So far she has not needed to use it. Qualifiers: Back pain location: low back pain (4) HTN (hypertension) Impression: Yesterday she was mildly hypotensive at 98/48 at around midnight. Today she is been in the 120s. Medications at home are valsartan, Norvasc, metoprolol. No change at this time here she is on Norvasc, losartan, and metoprolol. Qualifiers: Hypertension type: essential hypertension Qualified Code(s): I10 - Essential (primary) hypertension (5) Type 2 diabetes mellitus with complication, without long-term current use of insulin Impression: Glucose yesterday was 129, glucose today is 130. She usually takes metformin at home. Unfortunately that will give you more diarrhea and lactic acidosis which I hope to avoid. Lactic acid is currently 1.8 on admission. We will start sliding scale. (6) Hypokalemia Impression: Some limited p.o. today. Will check level tomorrow morning. (7) Chemotherapy induced diarrhea Impression: Her diarrhea is stable. Is the usual diarrhea she always gets. She is asking us to give her fixed dose Lomotil and that will be ordered. (8) Depression with anxiety Impression: She uses fixed dose Klonopin up to 5 times a day. She would like us to schedule that for her here. I have ordered 3 times daily.
--- NOTE | 2018-07-31 20:18 | XRAY Report ---
Reason: sudden loss of port access p PICC removed Procedure Date: 07/31/2018 Accession Number: [id number] / [id number] Procedure: XR - Chest 1 View X-Ray CPT Code: 15651 FULL RESULT: EXAM: CHEST RADIOGRAPHY EXAM DATE: 07/31/2018 07:32 PM. CLINICAL HISTORY: Sudden loss of port access p PICC removed. COMPARISON: CHEST 1 VIEW 07/30/2018 11:37 AM. TECHNIQUE: 1 view. FINDINGS: Lungs/Pleura: Clear. No effusion or pneumothorax. Mild chronic elevation of left hemidiaphragm. Mediastinum: Mild cardiomegaly unchanged. Upper lobe vessels not distended. Other: No change of right Port-A-Cath with tip in lower SVC about 2.6 cm below level of reny. PICC has been removed. IMPRESSION: No acute disease. [facility]IA
[2018-07-31 21:13] LABS: HB2 TOTAL 10.7 g/dL; HEMOGLOBIN A1C 0.59 g/dL; HEMOGLOBIN A1C % 7.2 % (4.6-6.2)
[2018-07-31] MEDS ORDERED: TENECTEPLASE 50 MG KIT IVP ONE (21:39)
[2018-07-31] MEDS: INSULIN ASPART 300 UNIT/3 ML PEN SUBQ SCH (21:57)
[2018-07-31] MEDS: GABAPENTIN 300 MG CAPSULE PO SCH (21:59)
[2018-07-31] MEDS ORDERED: ALTEPLASE 2 MG VIAL IC ONE (23:22)
[2018-08-01] MEDS ORDERED: WATER FOR INJECTION,STERILE 0 ML ONE (00:47)
[2018-08-01] MEDS: VANCOMYCIN INJ 1 GM, VANCOMYCIN INJ 250 MG in SODIUM CHLORIDE 0.9% 250 ML IV SCH ×3 (01:00→16:56)
[2018-08-01] MEDS: SODIUM CHLORIDE FLUSH 0.9% 10 ML SYRINGE IVP PRN (01:01)
[2018-08-01] MEDS: SODIUM CHLORIDE FLUSH 0.9% 10 ML SYRINGE IVP SCH ×3 (01:01→16:56)
[2018-08-01] MEDS: clonazePAM 0.5 MG TABLET PO SCH ×3 (05:47→21:17)
[2018-08-01] MEDS: POTASSIUM CHLORIDE 20 MEQ TABLET PO SCH ×3 (05:49→21:17)
[2018-08-01] MEDS: CEFEPIME 1 GM in SODIUM CHLORIDE 0.9% MINIBAG 100 ML IV SCH ×3 (05:55→21:16)
[2018-08-01 06:19] LABS: BASOPHILS % (AUTO) 0.5 %; EOSINOPHILS % (AUTO) 0.6 %; HGB - HEMOGLOBIN 11.2 g/dL (12.0-16.0); LYMPHOCYTES # (AUTO) 0.5 10^3/uL (1.5-3.5); LYMPHOCYTES % (AUTO) 10.6 %; MEAN CORPUSCULAR HEMOGLOBIN 32.5 pg (27.0-31.0); MEAN CORPUSCULAR HGB CONC 33.7 g/dL (32.0-36.0); MEAN CORPUSCULAR VOLUME 96.4 fL (81.0-99.0); MEAN PLATELET VOLUME 8.5 fL (7.9-10.8); MONOCYTES # (AUTO) 0.6 10^3/uL (0.0-1.0); MONOCYTES % (AUTO) 14.4 %; NEUTROPHILS # (AUTO) 3.3 10^3/uL (1.5-6.6); NEUTROPHILS % (AUTO) 73.9 %; PLT - PLATELET COUNT 121 10^3/uL (130-450); RED BLOOD COUNT 3.44 10^6/uL (4.20-5.40); RED CELL DISTRIBUTION WIDTH 14.1 % (12.0-15.0); WHITE BLOOD COUNT 4.4 x10^3/uL (4.8-10.8)
[2018-08-01 06:30] LABS: CALCIUM 8.1 mg/dL (8.5-10.3); CREATININE 0.5 mg/dL (0.4-1.0)
[2018-08-01] MEDS: SODIUM CHLORIDE 0.9% 1,000 ML IV SCH ×2 (06:37→11:06)
[2018-08-01] MEDS: POLYETHYLENE GLYCOL 3350 17 GM PACKET PO SCH (08:05)
[2018-08-01] MEDS: ASPIRIN EC 81 MG TABLET PO SCH (08:56)
[2018-08-01] MEDS: LOSARTAN 50 MG TABLET PO SCH (08:56)
[2018-08-01] MEDS: METOPROLOL TARTRATE 25 MG TABLET PO SCH ×2 (08:56→21:15)
[2018-08-01] MEDS: amLODIPine 5 MG TABLET PO SCH (08:57)
[2018-08-01] MEDS: LOPERAMIDE 2 MG CAPSULE PO SCH ×2 (08:57→21:15)
[2018-08-01] MEDS: DICLOFENAC SODIUM DR 75 MG TABLET PO SCH (08:57)
[2018-08-01] MEDS: SERTRALINE 50 MG TABLET PO SCH (08:57)
[2018-08-01] MEDS: INSULIN ASPART 300 UNIT/3 ML PEN SUBQ SCH ×4 (09:00→21:18)
[2018-08-01] MEDS ORDERED: OXYMETAZOLINE NASAL SPRAY NAS PRN (15:35)
[2018-08-01] MEDS ORDERED: SODIUM CHLORIDE 0.65% NASAL SPRAY NAS PRN (15:35)
[2018-08-01] MEDS ORDERED: MAGIC MOUTHWASH 120 ML BOTTLE PO PRN (15:36)
[2018-08-01] MEDS: DIPHENOX/ATROPINE 2.5/0.025 MG TABLET PO PRN (15:41)
--- NOTE | 2018-08-01 15:46 | PROVIDER PROGRESS NOTE ---
Assessment/Plan - Problem List (1) Bacteremia due to Staphylococcus aureus without sepsis Assessment/Plan: She had been admitted last week because of nausea, vomiting, diarrhea, mucositis from her chemotherapy. During that time a PICC line was placed. She already had a port but it was not accessible because it was kinked. The port was revised July 28 and was useable. She presented with fever and rigors on 07/30, status post chemotherapy 1st cycle 4 weeks ago for breast cancer. Chest x-ray negative, abdominal exam negative, urine negative. She did not have an elevated white cell count. and a positive blood culture with staph aureus. Dr Branham spoke to [facility] infectious disease 2 days ago. Because this is a relatively new port, they felt that there is a diminished burden of biofilm layer from the Staph. So they felt that we can keep the port at this time. Contamination may have occurred because of multiple procedures and multiple handling. Instructions were to pull the PICC line, check an Echocardiogram for vegetations, and continue vancomycin until we know if the staph aureus is MMSA or MRSA. She will need daily blood cultures until her cultures are proven negati ve. If it is MMSA, the patient can take Ancef 6 g over 24 hours and that can be arranged depending on the infusion service. Or 2 grams q8 hours. If it is MRSA, she will need vancomycin every 12 hours minimum. Hopefully her infusion service (that provides the tpn) can provide her with vancomycin (2) Carcinoma of left breast Qualifiers: Breast location: central portion of breast Estrogen receptor status: positive Patient sex: female Qualified Code(s): C50.112 - Malignant neoplasm of central portion of left female breast; Z17.0 - Estrogen receptor positive status [ER+] Assessment/Plan: The patient wonders when her next chemp will be scheduled, and requests that I reach out to Dr Lopez at [facility]. I will request a consult from Dr Lopez and leave a message at [facility]. (3) Immunocompromised state due to drug therapy Assessment/Plan: She had chemo approx 2 weeks ago, which led to the last, recent admossion for N/V/D. Monitor CBC daily. (4) Chronic back pain Qualifiers: Back pain location: low back pain Assessment/Plan: Pain is under control on current meds. (5) HTN (hypertension) Qualifiers: Hypertension type: essential hypertension Qualified Code(s): I10 - Essential (primary) hypertension Assessment/Plan: BP under control on current meds (6) Diabetes mellitus type 2, controlled Qualifiers: Diabetes mellitus intermediate frame tender insulin use: without intermediate frame tender use Diabetes mellitus complication detail: with nephropathy Assessment/Plan: Continue carb-controlled diet, fingerstick checks and ss Insulin coverage. Will alter diet to low fiber. (7) Chemotherapy induced diarrhea Assessment/Plan: Will adjust diet to low fiber, as she probably has a strong gastro-colic reflex. (8) Hypokalemia Assessment/Plan: Likely from prior N/V and from ongoing diarrhea. Replace and follow daily BMP (9) Depression with anxiety Assessment/Plan: Stable on current meds. (10) Thrush of mouth and esophagus Assessment/Plan: Will re-order her home Magic Mouthwash swish and swallow. (11) Insomnia Assessment/Plan: She is requesting whatecver medication helped her sleep, on the last recent admsission. I reviewed te chart: it shows getting Deseryl 50 mg prn. I will order that. - Current Meds Current Meds: Current Medications Generic Name Dose Route Start Last Admin Trade Name Freq PRN Reason Stop Dose Admin Acetaminophen 650 mg 07/30/18 14:26 07/31/18 14:35 Tylenol PO 650 mg Q4HR PRN Administration Pain 1 to 4 Amlodipine Besylate 2.5 mg 07/31/18 09:00 08/01/18 08:57 Norvasc PO 2.5 mg DAILY JAY Administration Aspirin 81 mg 07/31/18 09:00 08/01/18 08:56 Ecotrin PO 81 mg DAILY JAY Administration Clonazepam 1 mg 07/31/18 14:00 08/01/18 14:48 Klonopin PO 1 mg TID JAY Administration Diclofenac Sodium 75 mg 07/31/18 09:00 08/01/18 08:57 Voltaren PO 75 mg DAILY JAY Administration Diphenoxylate HCl/Atropine 1 tab 07/30/18 14:28 08/01/18 15:41 Lomotil PO 1 tab QID PRN Administration Diarrhea Gabapentin 300 mg 07/30/18 21:00 07/31/18 21:59 Neurontin PO 300 mg QPM JAY Administration Cefepime HCl 1 gm/ Sodium 100 mls @ 200 mls/hr 07/30/18 22:00 08/01/18 14:48 Chloride IV 200 mls/hr TID JAY Administration Sodium Chloride 1,000 mls @ 100 mls/hr 07/30/18 15:00 08/01/18 11:06 Normal Saline 0.9% IV 100 mls/hr .Q10H JAY Administration Vancomycin HCl 1 gm/ 250 mls @ 167 mls/hr 07/31/18 00:00 08/01/18 11:03 Vancomycin HCl 250 mg/ Sodium IV Infused Chloride Q8H JAY Infusion Insulin Aspart 1 - 9 unit 07/31/18 21:00 08/01/18 11:45 Novolog SUBQ Not Given 0800,1200,1700,2100 [facility] Protocol Loperamide HCl 2 mg 07/31/18 09:00 08/01/18 08:57 Imodium PO 2 mg BID JAY Administration Losartan Potassium 25 mg 07/31/18 09:00 08/01/18 08:56 Cozaar PO 25 mg DAILY JAY Administration Metoprolol Tartrate 25 mg 08/01/18 09:00 08/01/18 08:56 Lopressor PO 25 mg BID JAY Administration Multi-Ingredient Mouthwash/Gargle 30 ml 08/01/18 15:36 08/01/18 15:42 PO 30 ml Q4H PRN Administration Mouth Sore Pain Polyethylene Glycol 17 gm 07/31/18 09:00 08/01/18 08:05 Miralax PO Not Given DAILY [facility] Potassium Chloride 20 meq 07/31/18 14:13 08/01/18 14:48 K-Dur PO 20 meq TID JAY Administration Sertraline HCl 100 mg 07/31/18 09:00 08/01/18 08:57 Zoloft PO 100 mg DAILY JAY Administration Sodium Chloride 10 ml 07/30/18 14:26 08/01/18 01:01 Normal Saline Flush 0.9% IVP 10 ml PRN PRN Administration NEEDED PER PROVIDER ORDERS Sodium Chloride 10 ml 07/30/18 17:00 08/01/18 08:57 Normal Saline Flush 0.9% IVP Not Given 0100,0900,1700 [facility] - Lab Result Fish Bone Diagrams: 08/02/18 06:07 08/02/18 06:07 - Additional Planning My Orders: My Active Orders 08/01/18 Consult [Oncology Consult] [CONS] Routine 08/01/18 15:35 Oxymetazoline [Afrin] 2 sprays FÁTIMA BID PRN Sodium Chloride 0.65% [Mono] 2 sprays FÁTIMA Q4HR PRN 08/01/18 15:36 Fluticasone [Flonase] 1 sprays FÁTIMA DAILY Magic Mouthwash 30 ml PO Q4H PRN 08/01/18 Dinner DIET [Soft (Low Fiber) Diet] [DIET] Subjective - Subjective Patient Reports: Diarrhea (Pt says her salad for lunch gave her immediate watrey diarrhea.), Fatigue Objective Vital Signs: Vital Signs - 24 hr 07/31/18 07/31/18 08/01/18 20:36 23:25 05:35 Temperature 36.4 C L 36.7 C 37.3 C Heart Rate [ 55 L 60 76 Radial] Respiratory 16 16 16 Rate Blood Pressure 106/60 107/54 L 147/77 H [Right Radial artery] O2 Saturation 96 94 93 08/01/18 08/01/18 08:17 11:59 Temperature 37.2 C 36.8 C Heart Rate [ 85 62 Radial] Respiratory 18 18 Rate Blood Pressure 161/89 H 121/62 [Right Radial artery] O2 Saturation 93 92 Oxygen O2 Source Room air I&O (Last 24 Hrs): Intake and Output Totals x24h 07/30/18 07/31/18 08/01/18 23:59 23:59 23:59 Intake Total 2368.333 3561.666 2795.000 Output Total 1650 1975 700 Balance 035.688 0496.666 2095.000 General: Alert, Oriented x3, Other (Appears tired, speaking quietly and slowly) HEENT: Mucous membr. moist/pink Neck: Supple Neuro: Non Focal Cardiovascular: Regular rate, No murmurs Respiratory: No respiratory distress Abdomen: Soft Extremities: No edema - Results Results: Laboratory Results WBC 4.4 x10^3/uL (4.8-10.8) L 08/01/18 05:36 RBC 3.44 10^6/uL (4.20-5.40) L 08/01/18 05:36 Hgb 11.2 g/dL (12.0-16.0) L 08/01/18 05:36 Hct 33.2 % (37.0-47.0) L 08/01/18 05:36 MCV 96.4 fL (81.0-99.0) 08/01/18 05:36 MCH 32.5 pg (27.0-31.0) H 08/01/18 05:36 MCHC 33.7 g/dL (32.0-36.0) 08/01/18 05:36 RDW 14.1 % (12.0-15.0) 08/01/18 05:36 Plt Count 121 10^3/uL (130-450) L 08/01/18 05:36 MPV 8.5 fL (7.9-10.8) 08/01/18 05:36 Neut # (Auto) 3.3 10^3/uL (1.5-6.6) 08/01/18 05:36 Lymph # (Auto) 0.5 10^3/uL (1.5-3.5) L 08/01/18 05:36 [place] # (Auto) 0.6 10^3/uL (0.0-1.0) 08/01/18 05:36 Eos # (Auto) 0.0 10^3/uL (0.0-0.7) 08/01/18 05:36 Baso # (Auto) 0.0 10^3/uL (0.0-0.1) 08/01/18 05:36 Absolute Nucleated RBC 0.01 x10^3/uL 08/01/18 05:36 Nucleated RBC % 0.2 /100WBC 08/01/18 05:36 Sodium 140 mmol/L (135-145) 08/01/18 05:36 Potassium 3.4 mmol/L (3.5-5.0) L 08/01/18 05:36 Chloride 104 mmol/L (101-111) 08/01/18 05:36 Carbon Dioxide 25 mmol/L (21-32) 08/01/18 05:36 Anion Gap 11.0 (6-13) 08/01/18 05:36 BUN 9 mg/dL (6-20) 08/01/18 05:36 Creatinine 0.5 mg/dL (0.4-1.0) 08/01/18 05:36 Estimated GFR (MDRD) 125 (>89) 08/01/18 05:36 Glucose 131 mg/dL (70-100) H 08/01/18 05:36 POC Whole Bld Glucose 123 mg/dL (70 - 100) H 08/01/18 11:30 Glycated Hemoglobin 7.2 % (4.6-6.2) H 07/31/18 06:00 Estim Average Glucose 160 (70-100) H 07/31/18 06:00 Lactic Acid 1.8 mmol/L (0.5-2.2) 07/30/18 11:37 Calcium 8.1 mg/dL (8.5-10.3) L 08/01/18 05:36 Total Bilirubin 0.5 mg/dL (0.2-1.0) 07/30/18 11:37 AST 38 IU/L (10-42) 07/30/18 11:37 ALT 45 IU/L (10-60) 07/30/18 11:37 Alkaline Phosphatase 92 IU/L (42-121) 07/30/18 11:37 Total Protein 6.6 g/dL (6.7-8.2) L 07/30/18 11:37 Albumin 3.5 g/dL (3.2-5.5) 07/30/18 11:37 Globulin 3.1 g/dL (2.1-4.2) 07/30/18 11:37 Albumin/Globulin Ratio 1.1 (1.0-2.2) 07/30/18 11:37 Lipase 97 U/L (22-51) H 07/30/18 11:37 Urine Color YELLOW 07/30/18 11:28 Urine Clarity CLEAR (CLEAR) 07/30/18 11:28 Urine pH 5.5 PH (5.0-7.5) 07/30/18 11:28 Ur Specific [place] 1.025 (1.002-1.030) 07/30/18 11:28 Urine Protein NEGATIVE mg/dL (NEGATIVE) 07/30/18 11:28 Urine Glucose (UA) NEGATIVE mg/dL (NEGATIVE) 07/30/18 11:28 Urine Ketones NEGATIVE mg/dL (NEGATIVE) 07/30/18 11:28 Urine Occult Blood TRACE-INTA (NEGATIVE) 07/30/18 11:28 Urine Nitrite NEGATIVE (NEGATIVE) 07/30/18 11:28 Urine Bilirubin NEGATIVE (NEGATIVE) 07/30/18 11:28 Urine Urobilinogen 0.2 (NORMAL) E.U./dL (NORMAL) 07/30/18 11:28 Ur Leukocyte Esterase NEGATIVE (NEGATIVE) 07/30/18 11:28 Ur Microscopic Review NOT INDICATED 07/30/18 11:28 Urine Culture Comments NOT INDICATED 07/30/18 11:28 Last Dose Date 07/31/2018 07/31/18 15:25 Last Dose Time 10:49 07/31/18 15:25 Vancomycin Trough 12.9 ug/mL (10.0-20.0) 07/31/18 15:25 C. difficile Tox B Gene NEGATIVE (NEGATIVE) 07/30/18 18:30 Influenza A (Rapid) Negative (Negative) 07/30/18 13:20 Influenza B (Rapid) Negative (Negative) 07/30/18 13:20 - Procedures Procedures: Procedures INSERT VAD RESERVOIR IN CHEST SUBCU/FASCIA, PERC (07/03/18) INSERTION OF INFUSION DEV INTO R SUBCLAV VEIN, PERC APPROACH (07/03/18) REVISION OF VAD IN TRUNK SUBCU/FASCIA, OPEN APPROACH (07/28/18)
[2018-08-01] MEDS: FLUTICASONE NASAL SPRAY NAS SCH (16:54)
[2018-08-01] MEDS: GABAPENTIN 300 MG CAPSULE PO SCH (21:16)
[2018-08-01] MEDS: traZODone 50 MG TABLET PO SCH (21:16)
[2018-08-02] MEDS: SODIUM CHLORIDE 0.9% 1,000 ML IV SCH ×3 (00:31→23:41)
[2018-08-02] MEDS: VANCOMYCIN INJ 1 GM, VANCOMYCIN INJ 250 MG in SODIUM CHLORIDE 0.9% 250 ML IV SCH ×2 (00:31→08:29)
[2018-08-02] MEDS: SODIUM CHLORIDE FLUSH 0.9% 10 ML SYRINGE IVP SCH ×3 (02:25→17:21)
[2018-08-02] MEDS: CEFEPIME 1 GM in SODIUM CHLORIDE 0.9% MINIBAG 100 ML IV SCH (06:34)
[2018-08-02] MEDS: clonazePAM 0.5 MG TABLET PO SCH ×3 (06:50→22:09)
[2018-08-02] MEDS: POTASSIUM CHLORIDE 20 MEQ TABLET PO SCH ×3 (06:50→22:09)
[2018-08-02 07:20] LABS: CALCIUM 8.3 mg/dL (8.5-10.3); CREATININE 0.5 mg/dL (0.4-1.0)
[2018-08-02] MEDS: INSULIN ASPART 300 UNIT/3 ML PEN SUBQ SCH ×4 (07:20→22:09)
[2018-08-02 07:36] LABS: BASOPHILS % (AUTO) 0.6 %; EOSINOPHILS # (AUTO) 0.1 10^3/uL (0.0-0.7); EOSINOPHILS % (AUTO) 2.6 %; HGB - HEMOGLOBIN 10.8 g/dL (12.0-16.0); LYMPHOCYTES # (AUTO) 0.7 10^3/uL (1.5-3.5); LYMPHOCYTES % (AUTO) 18.3 %; MEAN CORPUSCULAR HEMOGLOBIN 32.5 pg (27.0-31.0); MEAN CORPUSCULAR HGB CONC 34.2 g/dL (32.0-36.0); MEAN CORPUSCULAR VOLUME 95.2 fL (81.0-99.0); MEAN PLATELET VOLUME 8.9 fL (7.9-10.8); MONOCYTES # (AUTO) 0.5 10^3/uL (0.0-1.0); MONOCYTES % (AUTO) 14.6 %; NEUTROPHILS # (AUTO) 2.4 10^3/uL (1.5-6.6); NEUTROPHILS % (AUTO) 63.9 %; PLT - PLATELET COUNT 134 10^3/uL (130-450); RED BLOOD COUNT 3.32 10^6/uL (4.20-5.40); WHITE BLOOD COUNT 3.7 x10^3/uL (4.8-10.8)
[2018-08-02] MEDS: POLYETHYLENE GLYCOL 3350 17 GM PACKET PO SCH (07:39)
[2018-08-02] MEDS: SERTRALINE 50 MG TABLET PO SCH (08:29)
[2018-08-02] MEDS: ASPIRIN EC 81 MG TABLET PO SCH (08:29)
[2018-08-02] MEDS: DICLOFENAC SODIUM DR 75 MG TABLET PO SCH (08:29)
[2018-08-02] MEDS: LOPERAMIDE 2 MG CAPSULE PO SCH ×2 (08:29→22:08)
[2018-08-02] MEDS: METOPROLOL TARTRATE 25 MG TABLET PO SCH ×2 (08:29→22:08)
[2018-08-02] MEDS: amLODIPine 5 MG TABLET PO SCH (08:30)
[2018-08-02] MEDS: LOSARTAN 50 MG TABLET PO SCH (08:30)
[2018-08-02] MEDS: FLUTICASONE NASAL SPRAY NAS SCH (08:30)
[2018-08-02] MEDS ORDERED: ceFAZolin 1 GM in SODIUM CHLORIDE 0.9% MINIBAG 100 ML IV SCH (12:00)
--- NOTE | 2018-08-02 15:06 | PROVIDER PROGRESS NOTE ---
Assessment/Plan - Problem List (1) Bacteremia due to Staphylococcus aureus without sepsis Assessment/Plan: The rest of the blood cultures, after day #1, have been neg (the last set is at 24 hours of culture, not finalized yet, should be finalized tomorrow). She will likely be able to be DCh tomorrow, planning iv Ancef 6 gm extended infusion daily, could be done at our [facility]. Plan a 14 day course of treatment, so 10 more days as an outpatient. I discussed this plan with patient, her son at bedside and our Case Management (Claudette Poole). A paper prescription was provided to Case Management. (2) Carcinoma of left breast Qualifiers: Breast location: central portion of breast Estrogen receptor status: positive Patient sex: female Qualified Code(s): C50.112 - Malignant neoplasm of central portion of left female breast; Z17.0 - Estrogen receptor positive status [ER+] Assessment/Plan: The patient was not yet seen by Dr Lopez, her Oncologist. Laila Luciano informed me that her chemo would be planned as soon as the infection is treated. The patient described that she has an appointment in [facility] tomorrow at 2 pm, for a biopsy of lymph nodes, to complete the staging process. (3) Immunocompromised state due to drug therapy Assessment/Plan: As in #2, and she is 2-3 weeks post her first chemo. (4) Chronic back pain Qualifiers: Back pain location: low back pain Assessment/Plan: Stable on current meds. (5) HTN (hypertension) Qualifiers: Hypertension type: essential hypertension Qualified Code(s): I10 - Essential (primary) hypertension Assessment/Plan: Stable on current meds. (6) Diabetes mellitus type 2, controlled Qualifiers: Diabetes mellitus prison insulin use: without intermediate project manager use Diabetes mellitus complication detail: with nephropathy Assessment/Plan: Getting carb-controlled diet and ss Insulin coverage. (7) Chemotherapy induced diarrhea Assessment/Plan: Overall improved, diet advanced to soft. (8) Hypokalemia Assessment/Plan: Replace K. Monitor daily BMP. (9) Depression with anxiety Assessment/Plan: Stable on current meds. (10) Thrush of mouth and esophagus Assessment/Plan: I suspect her R ear symptom could be from trush, as there is no otitis media on exam today. (11) Insomnia Assessment/Plan: Improved with prn Desyerel med (12) Contact dermatitis Qualifiers: Contact dermatitis trigger: adhesive Assessment/Plan: The pinker spot is associated with where the tape and PICC line tubing were in place. She possibly has an allergy to some type of plastic. Will treat with topical Hydrocortisone cream. - Current Meds Current Meds: Current Medications Generic Name Dose Route Start Last Admin Trade Name Freq PRN Reason Stop Dose Admin Acetaminophen 650 mg 07/30/18 14:26 07/31/18 14:35 Tylenol PO 650 mg Q4HR PRN Administration Pain 1 to 4 Amlodipine Besylate 2.5 mg 07/31/18 09:00 08/02/18 08:30 Norvasc PO 2.5 mg DAILY JAY Administration Aspirin 81 mg 07/31/18 09:00 08/02/18 08:29 Ecotrin PO 81 mg DAILY JAY Administration Clonazepam 1 mg 07/31/18 14:00 08/02/18 13:26 Klonopin PO 1 mg TID JAY Administration Diclofenac Sodium 75 mg 07/31/18 09:00 08/02/18 08:29 Voltaren PO 75 mg DAILY JAY Administration Diphenoxylate HCl/Atropine 1 tab 07/30/18 14:28 08/01/18 15:41 Lomotil PO 1 tab QID PRN Administration Diarrhea Fluticasone Propionate 1 sprays 08/01/18 15:36 08/02/18 08:30 Flonase FÁTIMA 1 spr DAILY JAY Administration Gabapentin 300 mg 07/30/18 21:00 08/01/18 21:16 Neurontin PO 300 mg QPM JAY Administration Sodium Chloride 1,000 mls @ 100 mls/hr 07/30/18 15:00 08/02/18 13:26 Normal Saline 0.9% IV 100 mls/hr .Q10H AJY Administration Cefazolin Sodium 1 gm/ Sodium 100 mls @ 200 mls/hr 08/02/18 12:00 08/02/18 14:43 Chloride IV Infused Q8H JAY Infusion Insulin Aspart 1 - 9 unit 07/31/18 21:00 08/02/18 13:14 Novolog SUBQ Not Given 0800,1200,1700,2100 [facility] Protocol Loperamide HCl 2 mg 07/31/18 09:00 08/02/18 08:29 Imodium PO 2 mg BID JAY Administration Losartan Potassium 25 mg 07/31/18 09:00 08/02/18 08:30 Cozaar PO 25 mg DAILY JAY Administration Metoprolol Tartrate 25 mg 08/01/18 09:00 08/02/18 08:29 Lopressor PO 25 mg BID JAY Administration Multi-Ingredient Mouthwash/Gargle 30 ml 08/01/18 15:36 08/01/18 15:42 PO 30 ml Q4H PRN Administration Mouth Sore Pain Polyethylene Glycol 17 gm 07/31/18 09:00 08/02/18 07:39 Miralax PO Not Given DAILY JAY Potassium Chloride 20 meq 07/31/18 14:13 08/02/18 13:27 K-Dur PO 20 meq TID JAY Administration Sertraline HCl 100 mg 07/31/18 09:00 08/02/18 08:29 Zoloft PO 100 mg DAILY JAY Administration Sodium Chloride 10 ml 07/30/18 14:26 08/01/18 01:01 Normal Saline Flush 0.9% IVP 10 ml PRN PRN Administration NEEDED PER PROVIDER ORDERS Sodium Chloride 10 ml 07/30/18 17:00 08/02/18 08:30 Normal Saline Flush 0.9% IVP 10 ml 0100,0900,1700 JAY Administration Trazodone HCl 50 mg 08/01/18 21:00 08/01/18 21:16 Desyrel PO 50 mg QPM JAY Administration - Lab Result Fish Bone Diagrams: 08/02/18 06:07 08/02/18 06:07 - Additional Planning My Orders: My Active Orders 08/01/18 15:35 Oxymetazoline [Afrin] 2 sprays FÁTIMA BID PRN Sodium Chloride 0.65% [[place]] 2 sprays FÁTIMA Q4HR PRN 08/01/18 15:36 Fluticasone [Flonase] 1 sprays FÁTIMA DAILY Magic Mouthwash 30 ml PO Q4H PRN 08/01/18 21:00 traZODone [Desyrel] 50 mg PO QPM 08/01/18 Dinner DIET [Soft (Low Fiber) Diet] [DIET] 08/02/18 12:00 ceFAZolin [Ancef] 1 gm Sodium Chloride 0.9% Minibag [Normal Saline 0.9% Minibag] 100 ml IV Q8H 08/02/18 15:04 Hydrocortisone 1% Cream [Hydrocortisone] 1 applic TOP BID Subjective - Subjective Patient Reports: Other (R earache, R forearm itchy rash) Objective Vital Signs: Vital Signs - 24 hr 08/01/18 08/01/18 08/01/18 15:50 21:00 21:15 Temperature 36.3 C L 36.8 C Heart Rate [ 62 76 Radial] Respiratory 16 16 Rate Blood Pressure 144/83 H Blood Pressure 114/64 144/83 H [Right Radial artery] O2 Saturation 94 96 08/01/18 08/02/18 08/02/18 23:30 04:05 07:26 Temperature 36.6 C 36.8 C 37.3 C Heart Rate [ 68 82 80 Radial] Respiratory 18 18 18 Rate Blood Pressure Blood Pressure 140/80 H 142/76 H 141/88 H [Right Radial artery] O2 Saturation 97 95 92 08/02/18 13:02 Temperature 36.9 C Heart Rate [ 80 Radial] Respiratory 20 Rate Blood Pressure Blood Pressure 133/78 H [Right Radial artery] O2 Saturation 92 Oxygen O2 Source Room air I&O (Last 24 Hrs): Intake and Output Totals x24h 07/31/18 08/01/18 08/02/18 23:59 23:59 23:59 Intake Total 3561.666 4465.000 2581.667 Output Total 1975 700 Balance 8339.226 1065.000 2581.667 General: Alert, Oriented x3 HEENT: Mucous membr. moist/pink, Other (R ear normal canal and tympanic membrane) Neuro: Non Focal Cardiovascular: Regular rate, No murmurs Respiratory: No respiratory distress, Breath sounds nml Abdomen: Soft Extremities: No edema, Other (R inner forarm has vague pinker area (4 cm x 12 cm approx.) and a central skin torn area.) - Results Results: Laboratory Results WBC 3.7 x10^3/uL (4.8-10.8) L 08/02/18 06:07 RBC 3.32 10^6/uL (4.20-5.40) L 08/02/18 06:07 Hgb 10.8 g/dL (12.0-16.0) L 08/02/18 06:07 Hct 31.6 % (37.0-47.0) L 08/02/18 06:07 MCV 95.2 fL (81.0-99.0) 08/02/18 06:07 MCH 32.5 pg (27.0-31.0) H 08/02/18 06:07 MCHC 34.2 g/dL (32.0-36.0) 08/02/18 06:07 RDW 14.0 % (12.0-15.0) 08/02/18 06:07 Plt Count 134 10^3/uL (130-450) 08/02/18 06:07 MPV 8.9 fL (7.9-10.8) 08/02/18 06:07 Neut # (Auto) 2.4 10^3/uL (1.5-6.6) 08/02/18 06:07 Lymph # (Auto) 0.7 10^3/uL (1.5-3.5) L 08/02/18 06:07 [place] # (Auto) 0.5 10^3/uL (0.0-1.0) 08/02/18 06:07 Eos # (Auto) 0.1 10^3/uL (0.0-0.7) 08/02/18 06:07 Baso # (Auto) 0.0 10^3/uL (0.0-0.1) 08/02/18 06:07 Absolute Nucleated RBC 0.00 x10^3/uL 08/02/18 06:07 Nucleated RBC % 0.1 /100WBC 08/02/18 06:07 Sodium 141 mmol/L (135-145) 08/02/18 06:07 Potassium 3.7 mmol/L (3.5-5.0) 08/02/18 06:07 Chloride 107 mmol/L (101-111) 08/02/18 06:07 Carbon Dioxide 24 mmol/L (21-32) 08/02/18 06:07 Anion Gap 10.0 (6-13) 08/02/18 06:07 BUN 8 mg/dL (6-20) 08/02/18 06:07 Creatinine 0.5 mg/dL (0.4-1.0) 08/02/18 06:07 Estimated GFR (MDRD) 125 (>89) 08/02/18 06:07 Glucose 123 mg/dL (70-100) H 08/02/18 06:07 POC Whole Bld Glucose 139 mg/dL (70 - 100) H 08/02/18 11:31 Glycated Hemoglobin 7.2 % (4.6-6.2) H 07/31/18 06:00 Estim Average Glucose 160 (70-100) H 07/31/18 06:00 Lactic Acid 1.8 mmol/L (0.5-2.2) 07/30/18 11:37 Calcium 8.3 mg/dL (8.5-10.3) L 08/02/18 06:07 Total Bilirubin 0.5 mg/dL (0.2-1.0) 07/30/18 11:37 AST 38 IU/L (10-42) 07/30/18 11:37 ALT 45 IU/L (10-60) 07/30/18 11:37 Alkaline Phosphatase 92 IU/L (42-121) 07/30/18 11:37 Total Protein 6.6 g/dL (6.7-8.2) L 07/30/18 11:37 Albumin 3.5 g/dL (3.2-5.5) 07/30/18 11:37 Globulin 3.1 g/dL (2.1-4.2) 07/30/18 11:37 Albumin/Globulin Ratio 1.1 (1.0-2.2) 07/30/18 11:37 Lipase 97 U/L (22-51) H 07/30/18 11:37 Urine Color YELLOW 07/30/18 11:28 Urine Clarity CLEAR (CLEAR) 07/30/18 11:28 Urine pH 5.5 PH (5.0-7.5) 07/30/18 11:28 Ur Specific [place] 1.025 (1.002-1.030) 07/30/18 11:28 Urine Protein NEGATIVE mg/dL (NEGATIVE) 07/30/18 11:28 Urine Glucose (UA) NEGATIVE mg/dL (NEGATIVE) 07/30/18 11:28 Urine Ketones NEGATIVE mg/dL (NEGATIVE) 07/30/18 11:28 Urine Occult Blood TRACE-INTA (NEGATIVE) 07/30/18 11:28 Urine Nitrite NEGATIVE (NEGATIVE) 07/30/18 11:28 Urine Bilirubin NEGATIVE (NEGATIVE) 07/30/18 11:28 Urine Urobilinogen 0.2 (NORMAL) E.U./dL (NORMAL) 07/30/18 11:28 Ur Leukocyte Esterase NEGATIVE (NEGATIVE) 07/30/18 11:28 Ur Microscopic Review NOT INDICATED 07/30/18 11:28 Urine Culture Comments NOT INDICATED 07/30/18 11:28 Last Dose Date 07/31/2018 07/31/18 15:25 Last Dose Time 10:49 07/31/18 15:25 Vancomycin Trough 12.9 ug/mL (10.0-20.0) 07/31/18 15:25 C. difficile Tox B Gene NEGATIVE (NEGATIVE) 07/30/18 18:30 Influenza A (Rapid) Negative (Negative) 07/30/18 13:20 Influenza B (Rapid) Negative (Negative) 07/30/18 13:20 - Procedures Procedures: Procedures INSERT VAD RESERVOIR IN CHEST SUBCU/FASCIA, PERC (07/03/18) INSERTION OF INFUSION DEV INTO R SUBCLAV VEIN, PERC APPROACH (07/03/18) REVISION OF VAD IN TRUNK SUBCU/FASCIA, OPEN APPROACH (07/28/18)
[2018-08-02] MEDS: HYDROCORTISONE 1% CREAM 28 GM TUBE TOP SCH ×2 (16:00→22:10)
--- NOTE | 2018-08-02 19:12 | Discharge Plan ---
Discharge Plan Disposition: Home, Self Care Condition: Stable Prescriptions: traZODone [Desyrel] 25 mg PO QPM #3 tablet Diet: Soft Activity Restrictions: Activity as Tolerated Shower Restrictions: No Driving Restrictions: No Instruction Topics: Oncology Control Diarrhea, Fatigue Manage, Chemo Mouth Care, Dehydration Rehydration Ch, ED Vomiting Diarrhea Nonspecific Ad Additional Instructions or Follow Up instructions: You were admitted with a bloodstream infection and you are being discharged with plan to complete a course of treatment with iv antibiotics, to be administered into your Port. Resume all your other pre-hospital medications. See your PCP and Oncologist as planned for follow-up. If you have new or worsening symptoms, call your PCP or Oncologist or come to the ER. Follow-Up Care: [facility] - Medical No Smoking: If you smoke, Please STOP! Call for help. Follow-up with: Bisi Urban DNP [Primary Care Provider] -
[2018-08-02] MEDS: ceFAZolin 2 GM in SODIUM CHLORIDE 0.9% 100ML 100 ML IV SCH (19:35)
[2018-08-02] MEDS: traZODone 50 MG TABLET PO SCH (22:08)
[2018-08-02] MEDS: GABAPENTIN 300 MG CAPSULE PO SCH (22:09)
[2018-08-03] MEDS: SODIUM CHLORIDE FLUSH 0.9% 10 ML SYRINGE IVP SCH ×2 (00:49→09:47)
[2018-08-03] MEDS: ceFAZolin 2 GM in SODIUM CHLORIDE 0.9% 100ML 100 ML IV SCH ×2 (03:55→12:01)
[2018-08-03] MEDS: POTASSIUM CHLORIDE 20 MEQ TABLET PO SCH (06:18)
[2018-08-03] MEDS: clonazePAM 0.5 MG TABLET PO SCH (06:19)
[2018-08-03] MEDS: SODIUM CHLORIDE FLUSH 0.9% 10 ML SYRINGE IVP PRN (06:22)
[2018-08-03 06:35] LABS: EOSINOPHILS # (AUTO) 0.1 10^3/uL (0.0-0.7); EOSINOPHILS % (AUTO) 3.8 %; HGB - HEMOGLOBIN 10.5 g/dL (12.0-16.0); LYMPHOCYTES # (AUTO) 0.9 10^3/uL (1.5-3.5); LYMPHOCYTES % (AUTO) 26.8 %; MEAN CORPUSCULAR HEMOGLOBIN 32.7 pg (27.0-31.0); MEAN CORPUSCULAR HGB CONC 34.1 g/dL (32.0-36.0); MEAN CORPUSCULAR VOLUME 95.9 fL (81.0-99.0); MEAN PLATELET VOLUME 7.4 fL (7.9-10.8); MONOCYTES # (AUTO) 0.6 10^3/uL (0.0-1.0); NEUTROPHILS # (AUTO) 1.7 10^3/uL (1.5-6.6); NEUTROPHILS % (AUTO) 50.4 %; PLT - PLATELET COUNT 134 10^3/uL (130-450); RED CELL DISTRIBUTION WIDTH 13.9 % (12.0-15.0); WHITE BLOOD COUNT 3.3 x10^3/uL (4.8-10.8)
[2018-08-03] MEDS ORDERED: CEFAZOLIN IV ONE (07:00)
[2018-08-03] MEDS ORDERED: SODIUM CHLORIDE 0.9% IV ONE (07:00)
[2018-08-03] MEDS: INSULIN ASPART 300 UNIT/3 ML PEN SUBQ SCH ×2 (08:05→11:53)
[2018-08-03] MEDS: POLYETHYLENE GLYCOL 3350 17 GM PACKET PO SCH (08:06)
[2018-08-03] MEDS: LOSARTAN 50 MG TABLET PO SCH (09:43)
[2018-08-03] MEDS: METOPROLOL TARTRATE 25 MG TABLET PO SCH (09:43)
[2018-08-03] MEDS: ASPIRIN EC 81 MG TABLET PO SCH (09:44)
[2018-08-03] MEDS: LOPERAMIDE 2 MG CAPSULE PO SCH (09:44)
[2018-08-03] MEDS: SERTRALINE 50 MG TABLET PO SCH (09:44)
[2018-08-03] MEDS: DICLOFENAC SODIUM DR 75 MG TABLET PO SCH (09:44)
[2018-08-03] MEDS: amLODIPine 5 MG TABLET PO SCH (09:44)
[2018-08-03] MEDS: HYDROCORTISONE 1% CREAM 28 GM TUBE TOP SCH (09:46)
[2018-08-03] MEDS: FLUTICASONE NASAL SPRAY NAS SCH (09:46)
[2018-08-03] MEDS: SODIUM CHLORIDE 0.9% 1,000 ML IV SCH (10:23)
[2018-08-03 12:08] VITALS: BP 148/105
--- NOTE | 2018-08-08 00:56 | DISCHARGE SUMMARY ---
Physician: Zoila Willingham MD DATE OF ADMISSION: 07/31/2018 DATE OF DISCHARGE: 08/03/2018 HISTORY OF PRESENT ILLNESS: This is a 63-year-old white female with a history of recently diagnosed breast cancer, underwent first round of chemotherapy with complications of dehydration from diarrhea, incessant nausea and vomiting, required admission for management of symptoms, and was just discharged one day before this admission, when she developed severe rigors and came to the emergency genesis. Her temperature was documented at 39.4 C and she was tachycardic at 143. No source of infection was found other than a recently placed port line and a PICC line. She was admitted for management of a fever and infection. HOSPITAL COURSE AND DISCHARGE DIAGNOSES 1. Bacteremia due to Staphylococcus aureus without sepsis. The blood cultures grew Staphylococcus aureus that was methicillin sensitive. She was initially on iv vancomycin for empiric coverage. The Hospitalist reached out to medical consultation with ID at [facility], and we were advised to repeat blood cultures until she defervesced and until she had negative blood cultures x2 sets, and advised to deescalate her vancomycin, since it was a methicillin- sensitive Staph aureus, and she was discharged to get Ancef IV treatment. Because the subsequent blood cultures did not grow any bacteria, her port was felt to be safe to remain in, and her PICC line had been removed while here. I made phone calls to Dr. Bisi Urban, to update her, on 08/03/2018 and 08/04/2018, but she was off and I could not reach her. 2. Carcinoma of the left breast. The patient is followed by Dr. Lopez in [facility]. Laila Fay from [facility], reviewed her chart and explained that as soon as her infection is cleared, there would be rescheduling of her next chemotherapy course, this was conveyed to the patient. 3. Immunocompromised state due to drug therapy. She is now 2-3 weeks post her first chemotherapy. There were no signs of pancytopenia while here. 4. Chronic back pain. The patient was kept on her pain medications while here. 5. Hypertension. The patient's blood pressure was controlled on her chronic blood pressure medications. 6. Diabetes mellitus type 2, controlled. She was on a carb-controlled diet and on sliding scale of insulin coverage while here. Her A1c on this admission was 7.2, indicating good control. 7. Chemotherapy-induced diarrhea. This had been a leftover symptom from the last recent admission. Her diet was gentle and advanced to a only soft diet, by the time of discharge. 8. Hypokalemia. This was felt to be from her recent nausea, vomiting, diarrhea, and dehydration. Potassium was replaced and her electrolytes were monitored daily. 9. Depression and anxiety. This was stable on her current medications. 10. Thrush of the mouth and esophagus. She was on Magic Mouthwash swish and swallow. 11. Insomnia. This improved with p.r.n. Desyrel, which she requested occasionally. 12. Contact dermatitis. The patient had her PICC line removed; and where the plastic tubing or tape had been in contact with her left inner forearm, she had mild redness at this site, which was pruritic. It was treated with topical hydrocortisone cream. LABORATORY AND IMAGING: Reviewed and summarized above. ALLERGIES 1. HYDROXYZINE. 2. LORAZEPAM. 3. MECLIZINE. MEDICATIONS AT THE TIME OF DISCHARGE 1. Aspirin 81 mg daily. 2. Voltaren 75 mg daily. 3. Gabapentin 300 mg every night. 4. Metformin 500 mg b.i.d. 5. Metoprolol tartrate 50 mg b.i.d. 6. Sertraline 100 mg daily. 7. Simvastatin 20 mg every night. 8. Valsartan 80 mg daily. 9. Norvasc 2.5 mg daily. 10. Klonopin 1 mg t.i.d. p.r.n. 11. Lomotil one tab q.i.d. p.r.n. 12. Flonase spray b.i.d. 13. Imodium 2 mg q.i.d. p.r.n. diarrhea. 14. Desyrel 25 mg p.o. q.p.m. 15. Ancef 6 grams IV every 24 hours. CONDITION AT DISCHARGE: Fair. PHYSICAL EXAMINATION VITAL SIGNS: Blood pressure 145/70-100, heart rate 60-80 in sinus rhythm, afebrile, room air saturation 94%. HEENT: Unremarkable. NECK: Without JVD or carotid bruits. CHEST: Clear. Her port is in place and infuses. HEAR: Heart sounds are normal. Her port site is present. ABDOMEN: Obese with positive bowel sounds, nontender. EXTREMITIES: No edema. NEUROLOGIC: Grossly intact. FOLLOWUP: She is advised to see her PCP and her oncologist in followup in the next one to two weeks. CODE STATUS: FULL CODE. Time required to complete this entire discharge, chart review, discussion with crop consultant, dictation: 60 minutes. cc: Bisi Urban DNP TD: 08/07/2018 22:58 MTDD
== END 2018-08-03 13:10 | disposition home or self-care (01) | DRG 315 ==
LOC: ED 10:46 → MS2 14:26 → OBSVTOIN 07-31 08:43 → INTOOBSV 07-31 08:43
PROVIDERS: ADMIT Specialist; ATTEND Internal Medicine
DX: T80.211A Bloodstream infection due to central venous catheter, initial encounter (principal); R78.81 Bacteremia; B37.81 Candidal esophagitis; B37.0 Candidal stomatitis; Z68.41 Body mass index [BMI] 40.0-44.9, adult; K52.1 Toxic gastroenteritis and colitis; B95.61 Methicillin susceptible Staphylococcus aureus infection as the cause of diseases classified elsewhere; C50.112 Malignant neoplasm of central portion of left female breast; Z17.0 Estrogen receptor positive status [ER+]; T45.1X5A Adverse effect of antineoplastic and immunosuppressive drugs, initial encounter; G89.29 Other chronic pain; M54.9 Dorsalgia, unspecified; M79.643 Pain in unspecified hand; M25.569 Pain in unspecified knee; I10 Essential (primary) hypertension; E11.9 Type 2 diabetes mellitus without complications; E87.6 Hypokalemia; E66.01 Morbid (severe) obesity due to excess calories; G47.33 Obstructive sleep apnea (adult) (pediatric); R01.1 Cardiac murmur, unspecified; I49.9 Cardiac arrhythmia, unspecified; H54.7 Unspecified visual loss; F32.9 Major depressive disorder, single episode, unspecified; F41.9 Anxiety disorder, unspecified; G47.00 Insomnia, unspecified; L25.9 Unspecified contact dermatitis, unspecified cause; M19.90 Unspecified osteoarthritis, unspecified site; E78.5 Hyperlipidemia, unspecified; H93.3X9 Disorders of unspecified acoustic nerve; R42 Dizziness and giddiness; K80.20 Calculus of gallbladder without cholecystitis without obstruction; Z79.82 Long term (current) use of aspirin; Z79.84 Long term (current) use of oral hypoglycemic drugs; Z86.72 Personal history of thrombophlebitis
CPT/HCPCS: 36415; 71045; 80048; 80053; 80202; 81003; 83036; 83605; 83690; 85025; 87040; 87071; 87181; 87275; 87276; 87493; 93005; 93308; 96361; 96365; 96366; 96368; 96375; 99284; A9270; G0378; J3370; J7120; Q0162; 81001; 87086; 99285

== ENCOUNTER 2018-08-10 18:36 | Emergency (ER) | payer MEDICAID ==
--- NOTE | 2018-08-10 21:18 | ED Physician Documentation ---
History of Present Illness - Stated complaint Stated Complaint: PORT ISSUES - Chief complaint Chief Complaint: General - History obtained from History obtained from: Patient, Family - History of Present Illness Timing: Today Pain level max: 0 Pain level now: 0 - Additonal information Additional information: R chest port, states bleeding today. states wound opened. Nothing makes it better or worse. 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 DIRECTOR: Miscarriage(s), Breast cancer : None HEENT: Chronic vision loss, Chronic sinusitis Psych: Anxiety Musculoskeletal: Osteoarthritis Derm: None, Other - Past Surgical History Past Surgical History: Yes Ortho: Spine surgery /REGULATORY AFFAIRS DIRECTOR: Tubal ligation, Other - Present Medications Home Medications: Ambulatory Orders Medication Instructions Recorded Confirmed Diclofenac Sodium Dr [Voltaren] 75 mg PO DAILY 06/27/18 08/08/18 Gabapentin 300 mg PO QPM 06/27/18 08/08/18 Metoprolol Tartrate 50 mg PO BID 06/27/18 08/08/18 Sertraline HCl 100 mg PO DAILY 06/27/18 08/08/18 Simvastatin 20 mg PO QPM 06/27/18 08/08/18 metFORMIN [Glucophage] 500 mg PO BIDWM 06/27/18 08/08/18 Aspirin [Aspirin EC] 81 mg PO DAILY 06/29/18 08/08/18 Valsartan 80 mg PO DAILY 07/20/18 08/08/18 Fluticasone [Flonase] 1 sprays FÁTIMA DAILY PRN #1 bottle 07/26/18 08/08/18 Diphenoxylate/Atropine [Lomotil] 1 each PO QID PRN #15 tablet 08/03/18 08/08/18 Loperamide [Imodium] 2 mg PO QID PRN #15 capsule 08/03/18 08/08/18 amLODIPine [Norvasc] 2.5 mg PO DAILY #10 tablet 08/03/18 08/08/18 clonazePAM [KlonoPIN] 1 mg PO TID PRN #15 tablet 08/03/18 08/08/18 traZODone [Desyrel] 25 mg PO QPM #3 tablet 08/03/18 08/08/18 Cefazolin 6gm/150ml 6 g IV DAILY 08/08/18 Enoxaparin Sodium 120 mg SQ BID 08/08/18 08/08/18 Enoxaparin [Lovenox] 120 mg SQ BID 08/08/18 08/08/18 - Allergies Allergies/Adverse Reactions: Allergies Allergy/AdvReac Type Severity Reaction Status Date / Time hydroxyzine Allergy Itching Verified 08/08/18 10:16 lorazepam Allergy Emesis Verified 08/08/18 10:16 meclizine Allergy Emesis Verified 08/08/18 10:16 silver Allergy Rash Verified 08/10/18 18:59 [From Tegaderm AG Mesh] - Social History Does the pt smoke?: No Smoking Status: Never smoker - POLST Patient has POLST: No POLST Status: Full Code PD ED PE NORMAL - Vitals Vital signs reviewed: Yes - General General: Alert and oriented X 3, No acute distress - HEENT HEENT: Moist mucous membranes - Derm Derm: Warm and dry, Other (R chest wall, 2cm, dehiscence of the port incision. no bleeding. ) - Neuro Neuro: Alert and oriented X 3 Results - Vitals Vitals: Vital Signs - 24 hr 08/10/18 08/10/18 08/10/18 18:50 20:51 22:05 Temperature 36.8 C 37.1 C 37.1 C Heart Rate 71 68 68 Respiratory 16 14 16 Rate Blood Pressure 145/82 H 146/83 H 144/76 H O2 Saturation 96 93 95 Oxygen O2 Source Room air Procedures - Laceration (location) R chest Length in cm: 2 Wound type: Linear, Clean, Other (subcutaneous) Wound Preparation: Betadine Skin layer closure: Dermabond Other: Patient tolerated well, No complications, Neurovascular intact Complexity: Simple PD MEDICAL DECISION MAKING - ED course Complexity details: considered differential, d/w patient ED course: Patient with a surgical wound dehiscence. Dr. Jenkins evaluated the patient in the emergency department recommend closing the wound with Dermabond. This was done. Patient will follow-up as an outpatient. No fevers. No sepsis. Patient counseled regarding signs and symptoms for which I believe and urgent re- evaluation would be necessary. Patient with good understanding of and agreement to plan and is comfortable going home at this time This document was made in part using voice recognition software. While efforts are made to proofread this document, sound alike and grammatical errors may occur. Departure - Departure Disposition: 01 Home, Self Care Clinical Impression: Wound dehiscence, surgical Qualifiers: Encounter type: initial encounter Qualified Code(s): T81.31XA - Disruption of external operation (surgical) wound, not elsewhere classified, initial encounter Condition: Good Instructions: ED Laceration Ext Skin Glue Follow-Up: Donovan Madera MD [Primary Care Provider] - Within 1 week Comments: Return if you worsen. Follow-up with your doctor as needed.
[2018-08-10 22:06] VITALS: BP 144/76
== END 2018-08-10 22:20 | disposition home or self-care (01) ==
LOC: ED 18:36
DX: T81.31XA Disruption of external operation (surgical) wound, not elsewhere classified, initial encounter (principal); Y83.8 Other surgical procedures as the cause of abnormal reaction of the patient, or of later complication, without mention of misadventure at the time of the procedure; C50.919 Malignant neoplasm of unspecified site of unspecified female breast; I10 Essential (primary) hypertension; E11.42 Type 2 diabetes mellitus with diabetic polyneuropathy; E11.51 Type 2 diabetes mellitus with diabetic peripheral angiopathy without gangrene; Z79.84 Long term (current) use of oral hypoglycemic drugs; Z79.82 Long term (current) use of aspirin
CPT/HCPCS: 12001; 99282; 99283

== ENCOUNTER 2018-08-12 12:22 | Emergency (ER) | payer MEDICAID ==
[2018-08-12] MEDS ORDERED: BACITRACIN OINT TOP STA ×2 (12:58→13:37)
--- NOTE | 2018-08-12 13:38 | ED Physician Documentation ---
History of Present Illness - Stated complaint Stated Complaint: PORT COMPLICATIONS - Chief complaint Chief Complaint: General - History obtained from History obtained from: Patient, Family - History of Present Illness Timing: Today Pain level max: 0 Pain level now: 0 Improved by: nothing Worsened by: nothing - Additonal information Additional information: Patient sent in by her wound care nurse for possible infection of her port site and dehiscence of the wound. Review of Systems Constitutional: denies: Fever Respiratory: denies: Cough GI: denies: Vomiting Skin: denies: Rash PD PAST MEDICAL HISTORY - Past Medical History Cardiovascular: Hypertension, High cholesterol, Peripheral Vascular Disease, Murmur Respiratory: Sleep apnea, CPAP use Neuro: Headaches, Peripheral neuropathy, Fainting Endocrine/Autoimmune: Type 2 diabetes GI: GERD, Cholelithiasis STOCK HOLDER: Miscarriage(s), Breast cancer : None HEENT: Chronic vision loss, Chronic sinusitis Psych: Anxiety Musculoskeletal: Osteoarthritis Derm: None, Other - Past Surgical History Past Surgical History: Yes Ortho: Spine surgery /STOCK HOLDER: Tubal ligation, Other - Present Medications Home Medications: Ambulatory Orders Medication Instructions Recorded Confirmed Diclofenac Sodium Dr [Voltaren] 75 mg PO DAILY 06/27/18 08/08/18 Gabapentin 300 mg PO QPM 06/27/18 08/08/18 Metoprolol Tartrate 50 mg PO BID 06/27/18 08/08/18 Sertraline HCl 100 mg PO DAILY 06/27/18 08/08/18 Simvastatin 20 mg PO QPM 06/27/18 08/08/18 metFORMIN [Glucophage] 500 mg PO BIDWM 06/27/18 08/08/18 Aspirin [Aspirin EC] 81 mg PO DAILY 06/29/18 08/08/18 Valsartan 80 mg PO DAILY 07/20/18 08/08/18 Fluticasone [Flonase] 1 sprays FÁTIMA DAILY PRN #1 bottle 07/26/18 08/08/18 Diphenoxylate/Atropine [Lomotil] 1 each PO QID PRN #15 tablet 08/03/18 08/08/18 Loperamide [Imodium] 2 mg PO QID PRN #15 capsule 08/03/18 08/08/18 amLODIPine [Norvasc] 2.5 mg PO DAILY #10 tablet 08/03/18 08/08/18 clonazePAM [KlonoPIN] 1 mg PO TID PRN #15 tablet 08/03/18 08/08/18 traZODone [Desyrel] 25 mg PO QPM #3 tablet 08/03/18 08/08/18 Cefazolin 6gm/150ml 6 g IV DAILY 08/08/18 Enoxaparin Sodium 120 mg SQ BID 08/08/18 08/08/18 Enoxaparin [Lovenox] 120 mg SQ BID 08/08/18 08/08/18 - Allergies Allergies/Adverse Reactions: Allergies Allergy/AdvReac Type Severity Reaction Status Date / Time hydroxyzine Allergy Itching Verified 08/08/18 10:16 lorazepam Allergy Emesis Verified 08/08/18 10:16 meclizine Allergy Emesis Verified 08/08/18 10:16 silver Allergy Rash Verified 08/10/18 18:59 [From Tegaderm AG Mesh] - Social History Does the pt smoke?: No Smoking Status: Never smoker - POLST Patient has POLST: No POLST Status: Full Code PD ED PE NORMAL - Vitals Vital signs reviewed: Yes - General General: Alert and oriented X 3, No acute distress, Well developed/nourished - HEENT HEENT: Moist mucous membranes - Neck Neck: Supple, no meningeal sign - Cardiac Cardiac: RRR - Respiratory Respiratory: No respiratory distress, Clear bilaterally - Abdomen Abdomen: Soft, Non tender, Non distended - Derm Derm: Warm and dry, Other (Port in right upper chest with a slight amount of macerated tissue. No granulation. The dehiscence is superficial. No signs of infection.) - Neuro Neuro: Alert and oriented X 3 - Psych Psych: Normal mood, Normal affect Results - Vitals Vitals: Vital Signs - 24 hr 08/12/18 08/12/18 12:25 13:51 Temperature 36.6 C Heart Rate 74 74 Respiratory 18 16 Rate Blood Pressure 182/120 H 130/80 O2 Saturation 97 Oxygen O2 Source Room air PD MEDICAL DECISION MAKING - ED course Complexity details: reviewed old records, reviewed results, re-evaluated patient, considered differential, d/w patient, d/w senior safety management consultant ED course: 63-year-old female is on continuous IV Ancef for A PICC line infection about 2 weeks ago. The incision is not been left open to air at all, it has been continuously kept under an occlusive dressing. This appears to be macerated in the tissue and causing issues with healing. I discussed the case with Dr. Dani Frye, surgery on-call who recommends that she follow-up in the office on Tuesday or Tuesday. She has had negative blood cultures, this would be day 14 of antibiotics, according to the hospitalist notes from what I can tell she should be able to stop antibiotics today. Therefore we will stop the antibiotics. Her oncologist is not available product inspection supervisor today. She will see them on Tuesday. Bacitracin was applied and a nonocclusive dressing with gauze was placed over the port. This was recommended by Dr. Frye. Patient counseled regarding signs and symptoms for which I believe and urgent re-evaluation would be necessary. Patient with good understanding of and agreement to plan and is comfortable going home at this time This document was made in part using voice recognition software. While efforts are made to proofread this document, sound alike and grammatical errors may occur. Departure - Departure Disposition: 01 Home, Self Care Clinical Impression: Wound dehiscence, surgical Qualifiers: Encounter type: initial encounter Qualified Code(s): T81.31XA - Disruption of external operation (surgical) wound, not elsewhere classified, initial encounter Condition: Good Instructions: ED Wound Care Follow-Up: Donovan Madera MD [Primary Care Provider] - Filemon Lopez MD [Physician No Access] - Dani Frye MD [Provider Admit Priv/Credential] - Within 3 Days Comments: Return if you worsen. We are going to hold your Ancef infusions at this time. You should apply a dressing with bacitracin and gauze twice a day. Follow-up with Dr. Frye on Tuesday or Tuesday for recheck of your wound. Discharge Date/Time: 08/12/18 13:52
[2018-08-12 13:52] VITALS: BP 130/80
== END 2018-08-12 13:52 | disposition home or self-care (01) ==
LOC: ED 12:22
DX: T81.31XA Disruption of external operation (surgical) wound, not elsewhere classified, initial encounter (principal); C50.919 Malignant neoplasm of unspecified site of unspecified female breast; E11.9 Type 2 diabetes mellitus without complications; I10 Essential (primary) hypertension; Z79.84 Long term (current) use of oral hypoglycemic drugs
CPT/HCPCS: 99283; A9270

== ENCOUNTER 2018-08-18 09:07 | Outpatient (CLI) | payer MEDICAID | END 2018-08-18 09:08 | disposition home or self-care (01) | LOC: LAB 09:07 | PROVIDERS: ATTEND Family Medicine | DX: R78.81 Bacteremia (principal) | CPT/HCPCS: 36415; 87040 ==

== ENCOUNTER 2018-08-22 00:08 | Emergency (ER) | payer MEDICAID ==
[2018-08-22] MEDS ORDERED: fentaNYL 100 MCG/2 ML VIAL IVP STA (00:39)
[2018-08-22 00:48] LABS: BASOPHILS # (AUTO) 0.1 10^3/uL (0.0-0.1); BASOPHILS % (AUTO) 0.7 %; EOSINOPHILS # (AUTO) 0.1 10^3/uL (0.0-0.7); EOSINOPHILS % (AUTO) 0.7 %; HGB - HEMOGLOBIN 12.2 g/dL (12.0-16.0); LYMPHOCYTES # (AUTO) 2.3 10^3/uL (1.5-3.5); LYMPHOCYTES % (AUTO) 26.9 %; MEAN CORPUSCULAR HEMOGLOBIN 31.9 pg (27.0-31.0); MEAN CORPUSCULAR HGB CONC 33.8 g/dL (32.0-36.0); MEAN CORPUSCULAR VOLUME 94.5 fL (81.0-99.0); MEAN PLATELET VOLUME 9.2 fL (7.9-10.8); MONOCYTES # (AUTO) 1.9 10^3/uL (0.0-1.0); MONOCYTES % (AUTO) 22.2 %; NEUTROPHILS # (AUTO) 4.2 10^3/uL (1.5-6.6); NEUTROPHILS % (AUTO) 49.5 %; PLT - PLATELET COUNT 173 10^3/uL (130-450); RED BLOOD COUNT 3.82 10^6/uL (4.20-5.40); RED CELL DISTRIBUTION WIDTH 13.8 % (12.0-15.0); WHITE BLOOD COUNT 8.4 x10^3/uL (4.8-10.8)
[2018-08-22 00:57] LABS: ALBUMIN 3.7 g/dL (3.2-5.5); ALBUMIN/GLOBULIN RATIO 1.3 (1.0-2.2); BILIRUBIN,TOTAL 0.9 mg/dL (0.2-1.0); CALCIUM 9.1 mg/dL (8.5-10.3); CREATININE 0.7 mg/dL (0.4-1.0); TOTAL PROTEIN 6.6 g/dL (6.7-8.2)
[2018-08-22] MEDS ORDERED: POTASSIUM CHLORIDE 20 MEQ TABLET PO STA (01:01)
[2018-08-22] MEDS ORDERED: ASPIRIN CHEW 81 MG TABLET PO STA (01:03)
[2018-08-22] MEDS ORDERED: MORPHINE 10 MG/ML VIAL IVP STA (01:03)
[2018-08-22] MEDS ORDERED: ASPIRIN CHEW 81 MG TABLET ONE (01:04)
[2018-08-22] MEDS ORDERED: MORPHINE 10 MG/ML VIAL ONE (01:10)
--- NOTE | 2018-08-22 01:16 | XRAY Report ---
Reason: chest pain Procedure Date: 08/22/2018 Accession Number: [id number] / [id number] Procedure: XR - Chest 1 View X-Ray CPT Code: 27052 FULL RESULT: EXAM: CHEST RADIOGRAPHY EXAM DATE: 08/22/2018 12:40 AM. CLINICAL HISTORY: Chest pain. COMPARISON: CHEST 1 VIEW 07/31/2018 7:32 PM. TECHNIQUE: 1 view. FINDINGS: Lungs/Pleura: No focal opacities evident. No pleural effusion. No pneumothorax. Mediastinum: Within exam limitations, the cardiomediastinal contour is normal. Other: There is a Port-A-Cath on the right with the tip in the superior vena cava. IMPRESSION: Normal single view chest. RADIA
[2018-08-22] MEDS ORDERED: HYDROmorphone 1 MG/ML CARPUJECT IVP STA (01:24)
[2018-08-22] MEDS ORDERED: IOVERSOL 320 100 ML VIAL IVP ONE ×2 (02:08→02:35)
[2018-08-22] MEDS ORDERED: HEPARIN 25000UNITS/500ML (D5W) 25,000 UNIT/500 ML BAG IV STA (03:02)
--- NOTE | 2018-08-22 03:06 | CT Report ---
Reason: chest pain, arm dvt, cancer pt Procedure Date: 08/22/2018 Accession Number: [id number] / [id number] Procedure: CT - ANGIO CHEST W/WO CPT Code: FULL RESULT: EXAM: CT ANGIOGRAM CHEST EXAM DATE: 08/22/2018 02:37 AM. CLINICAL HISTORY: Chest pain, arm dvt, cancer pt. COMPARISON: CHEST W/ 07/07/2018 10:45 AM ABDOMEN/PELVIS W/ 07/22/2018 4:42 PM. TECHNIQUE: Routine helical imaging was performed through the chest in the pulmonary arterial phase. IV Contrast: [id number] 100ML. Reconstructions: Coronal 3-D MIP reconstructions.Sagittal and coronal. In accordance with CT protocol optimization, one or more of the following dose reduction techniques were utilized for this exam: automated exposure control, adjustment of mA and/or KV based on patient size, or use of iterative reconstructive technique. FINDINGS: Pulmonary Arteries: Diagnostic quality: Adequate through the segmental arteries. No evidence for acute or chronic pulmonary emboli. RV/LV is within normal limits. There is no interventricular septal bowing. There is no reflux of contrast material in the IVC. Lungs/Pleura: Mild groundglass opacities, which may represent an infectious process or mild edema. No pulmonary nodule or mass lesion. Mediastinum: There is either marked wall thickening or a mass lesion involving the distal half of the esophagus. This is new from previous, favoring esophagitis. Small upper mediastinal lymph nodes. Thoracic Aorta: Unremarkable. Upper Abdomen: Cholelithiasis. Other: Left axillary adenopathy. IMPRESSION: No evidence of pulmonary embolus. Likely esophagitis of the distal half of the esophagus, given the new onset wall thickening from previous CT of 07/22/2018. Mild groundglass opacities in the lungs, which may reflect mild edema or an atypical infection. RADIA
[2018-08-22] MEDS ORDERED: ONDANSETRON 4 MG/2 ML VIAL IVP STA (03:32)
[2018-08-22] MEDS ORDERED: HYDROmorphone 2 MG/ML VIAL IVP STA (03:32)
--- NOTE | 2018-08-22 03:32 | ED Physician Documentation ---
PD HPI CHEST PAIN - Stated complaint Stated Complaint: CP/WHEEZING - Chief complaint Chief Complaint: Cardiac - History obtained from History obtained from: Patient, Family - History of Present Illness Timing - onset: Today (5pm) Timing - onset during: Rest Timing - duration: Hours Timing - details: Abrupt onset, Still present Quality: Pressure Location: Substernal Radiation: Back Improved by: Nothing Worsened by: No: Exertion, Eating, Movement, Palpation, Position Associated symptoms: Shortness of air, Nausea, Vomiting. No: Diaphoresis, Feeling faint / dizzy, General Weakness, Palpitations, Cough Similar symptoms before: Other (worse today) Recently seen: Other (Pt has hx of breast cancer and was recently evaluated with an echocardiogram which she states was normal) - Additional information Additional information: Pt is actively receiving chemotherapy. She was diagnosed with a R arm DVT 3 weeks ago. She takes lovenox sq twice a day and has been compliant. She thinks this may be a PE. Denies worsening of symptoms on exertion. Review of Systems Ten Systems: 10 systems reviewed and negative Constitutional: denies: Fever Cardiac: reports: Chest pain / pressure. denies: Palpitations, Pedal edema, Calf pain Respiratory: reports: Wheezing. denies: Dyspnea, Cough GI: reports: Abdominal Pain, Nausea, Vomiting. denies: Abdominal Swelling Musculoskeletal: reports: Back pain. denies: Neck pain Neurologic: reports: Focal weakness. denies: Numbness PD PAST MEDICAL HISTORY - Past Medical History Cardiovascular: Hypertension, High cholesterol, Peripheral Vascular Disease, Murmur Respiratory: Sleep apnea, CPAP use Neuro: Headaches, Peripheral neuropathy, Fainting Endocrine/Autoimmune: Type 2 diabetes GI: GERD, Cholelithiasis FACING SLITTER: Miscarriage(s), Breast cancer : None HEENT: Chronic vision loss, Chronic sinusitis Psych: Anxiety Musculoskeletal: Osteoarthritis Derm: None, Other - Past Surgical History Past Surgical History: Yes Ortho: Spine surgery /FACING SLITTER: Tubal ligation, Other - Present Medications Home Medications: Ambulatory Orders Medication Instructions Recorded Confirmed Diclofenac Sodium Dr [Voltaren] 75 mg PO DAILY 06/27/18 08/22/18 Gabapentin 300 mg PO QPM 06/27/18 08/22/18 Metoprolol Tartrate 50 mg PO BID 06/27/18 08/22/18 Sertraline HCl 100 mg PO DAILY 06/27/18 08/22/18 Simvastatin 20 mg PO QPM 06/27/18 08/22/18 metFORMIN [Glucophage] 500 mg PO BIDWM 06/27/18 08/22/18 Aspirin [Aspirin EC] 81 mg PO DAILY 06/29/18 08/22/18 Valsartan 80 mg PO DAILY 07/20/18 08/22/18 Fluticasone [Flonase] 1 sprays FÁTIMA DAILY PRN #1 bottle 07/26/18 08/22/18 Diphenoxylate/Atropine [Lomotil] 1 each PO QID PRN #15 tablet 08/03/18 08/22/18 Loperamide [Imodium] 2 mg PO QID PRN #15 capsule 08/03/18 08/22/18 amLODIPine [Norvasc] 2.5 mg PO DAILY #10 tablet 08/03/18 08/22/18 clonazePAM [KlonoPIN] 1 mg PO TID PRN #15 tablet 08/03/18 08/22/18 traZODone [Desyrel] 25 mg PO QPM #3 tablet 08/03/18 08/22/18 Cefazolin 6gm/150ml 6 g IV DAILY 08/08/18 08/22/18 Enoxaparin [Lovenox] 120 mg SQ BID 08/08/18 08/22/18 - Allergies Allergies/Adverse Reactions: Allergies Allergy/AdvReac Type Severity Reaction Status Date / Time hydroxyzine Allergy Itching Verified 08/08/18 10:16 lorazepam Allergy Emesis Verified 08/08/18 10:16 meclizine Allergy Emesis Verified 08/08/18 10:16 silver Allergy Rash Verified 08/10/18 18:59 [From Tegaderm AG Mesh] codeine AdvReac Nausea Verified 08/14/18 09:14 - Social History Does the pt smoke?: No Smoking Status: Never smoker Does the pt drink ETOH?: No Does the pt have substance abuse?: No - POLST Patient has POLST: No POLST Status: Full Code PD ED PE NORMAL - Vitals Vital signs reviewed: Yes - General General: Alert and oriented X 3 - HEENT HEENT: Atraumatic, PERRL, EOMI - Neck Neck: Supple, no meningeal sign, No JVD - Cardiac Cardiac: RRR, No murmur, No gallop, No rub - Respiratory Respiratory: No respiratory distress, Clear bilaterally - Abdomen Abdomen: Normal bowel sounds, Soft, Non tender, Non distended - Rectal Rectal: Deferred - Derm Derm: Normal color, Warm and dry - Extremities Extremities: No edema - Neuro Neuro: Alert and oriented X 3, No motor deficit, No sensory deficit Eye Opening: Spontaneous Motor: Obeys Commands Verbal: Oriented GCS Score: 15 - Psych Psych: Normal mood, Normal affect Results - Vitals Vitals: Vital Signs - 24 hr 08/22/18 08/22/18 08/22/18 00:10 00:23 01:24 Temperature 37.1 C Heart Rate 85 89 86 Respiratory 18 22 19 Rate Blood Pressure 163/78 H 170/84 H O2 Saturation 93 94 94 08/22/18 08/22/18 08/22/18 02:41 03:11 03:42 Temperature Heart Rate 80 82 82 Respiratory 20 15 20 Rate Blood Pressure 155/95 H 148/92 H 139/82 H O2 Saturation 95 95 95 Oxygen O2 Source Nasal cannula - EKG (time done) No standard instances Rate: Rate (enter#) (87) Rhythm: NSR [place]: Normal Intervals: Normal [place], Prolonged [place] QRS: Normal Ischemia: ST depression (in lateral leads ) Compare to prior EKG: Other (no prior ekg) Computer interpretation: Disagree with computer (On repeat EKGs pt with worsening lateral ST depressions, now more diffuse with approx 1mm ADAN in aVR) - Labs Labs: Laboratory Tests 08/22/18 08/22/18 08/22/18 00:35 00:35 00:35 WBC 8.4 RBC 3.82 L Hgb 12.2 Hct 36.1 L MCV 94.5 MCH 31.9 H MCHC 33.8 RDW 13.8 Plt Count 173 MPV 9.2 Neut # (Auto) 4.2 Lymph # (Auto) 2.3 [place] # (Auto) 1.9 H Eos # (Auto) 0.1 Baso # (Auto) 0.1 Absolute Nucleated RBC 0.01 Nucleated RBC % 0.1 Sodium 138 Potassium 2.9 L Chloride 98 L Carbon Dioxide 27 Anion Gap 13.0 BUN 25 H Creatinine 0.7 Estimated GFR (MDRD) 85 L Glucose 131 H Calcium 9.1 Total Bilirubin 0.9 AST 23 ALT 18 Alkaline Phosphatase 79 Troponin I < 0.04 Total Protein 6.6 L Albumin 3.7 Globulin 2.9 Albumin/Globulin Ratio 1.3 Lipase 34 - Rads (name of study) No standard instances Radiology: Final report received (negative CTA for PE) PD MEDICAL DECISION MAKING - ED course Complexity details: reviewed old records, reviewed results, considered differential, d/w patient, d/w family, d/w software sales consultant (Dr. Brice) ED course: Pt with hx of Cancer with possible ACS today. Initial concern also for possible PE but pt with RUE DVT being currently treated with lovenox. CTA neg for PE. Pt already on lovenox. Given aspirin initially and will give heparin drip (discussed with pharmacy and no bolus given lovenox dosing). Pt already discussed with Dr. Zambrano after ekgs 1 and 2 and feels pt may have ACS though no current stemi. Repeat EKG unchanged from ekg #2 but neg CTA makes ACS more likely. Dr Marti ED attending accepts pt for transfer. Will send by flight. - Critical Care Time(min): 30 Time Includes: Direct patient care, Review records Data interpretation: CXR, Prior EKG Procedures excluded from critical care time: EKG, See progress note Departure - Departure Disposition: 02 Transfer Acute Care Hosp Clinical Impression: Acute coronary syndrome, Hypokalemia Chest pain Qualifiers: Chest pain type: chest pain due to myocardial ischemia Ischemic chest pain type: other angina pectoris type Qualified Code(s): I20.8 - Other forms of angina pectoris Condition: Serious
[2018-08-22 03:42] VITALS: BP 139/82
== END 2018-08-22 04:24 | disposition short-term general hospital (02) ==
LOC: ED 00:08
DX: I24.9 Acute ischemic heart disease, unspecified (principal); E87.6 Hypokalemia; C50.919 Malignant neoplasm of unspecified site of unspecified female breast; I10 Essential (primary) hypertension; E11.9 Type 2 diabetes mellitus without complications; Z86.718 Personal history of other venous thrombosis and embolism; Z79.01 Long term (current) use of anticoagulants; Z79.899 Other long term (current) drug therapy; Z79.84 Long term (current) use of oral hypoglycemic drugs
CPT/HCPCS: 36415; 71045; 71275; 80048; 80053; 83690; 84484; 85025; 93005; 96374; 96375; 96376; 99284; 99291; A9270; J1170; Q9967

== ENCOUNTER 2018-08-30 21:59 | Emergency (ER) | payer MEDICAID ==
[2018-08-30 22:50] LABS: BASOPHILS % (AUTO) 0.8 %; EOSINOPHILS % (AUTO) 0.6 %; HGB - HEMOGLOBIN 8.4 g/dL (12.0-16.0); LYMPHOCYTES # (AUTO) 0.7 10^3/uL (1.5-3.5); MEAN CORPUSCULAR HEMOGLOBIN 32.7 pg (27.0-31.0); MEAN CORPUSCULAR HGB CONC 33.8 g/dL (32.0-36.0); MEAN CORPUSCULAR VOLUME 96.5 fL (81.0-99.0); MEAN PLATELET VOLUME 7.5 fL (7.9-10.8); MONOCYTES # (AUTO) 0.5 10^3/uL (0.0-1.0); MONOCYTES % (AUTO) 9.4 %; NEUTROPHILS # (AUTO) 4.1 10^3/uL (1.5-6.6); NEUTROPHILS % (AUTO) 76.2 %; PLT - PLATELET COUNT 134 10^3/uL (130-450); RED BLOOD COUNT 2.58 10^6/uL (4.20-5.40); RED CELL DISTRIBUTION WIDTH 14.6 % (12.0-15.0); WHITE BLOOD COUNT 5.4 x10^3/uL (4.8-10.8)
--- NOTE | 2018-08-30 22:52 | ED Physician Documentation ---
PD HPI DYSPNEA - Stated complaint Stated Complaint: SOA - Chief complaint Chief Complaint: Resp - History obtained from History obtained from: Patient, Family - History of Present Illness Timing - onset: Today Timing - onset during: Rest Timing - duration: Days (1) Timing - details: Gradual onset Pain level max: 2 Pain level now: 2 Inciting event(s): No: Out of meds, URI, Allergic rxn/anaphylaxis, Exercise, Exposure (ie smoke), FB / choking, Immobilization/travel, Emotional event Improved by: Rest Worsened by: Exertion Associated symptoms: Chest pain / discomfort (states slight pressure). No: Fever, Cough, Hemoptysis, Wheezing Similar symptoms before: Diagnosis (recently had a pneumonthorax likely from a lung biopsy.) Recently seen: Admitted (geneva barlow.) Review of Systems Ten Systems: 10 systems reviewed and negative Constitutional: denies: Fever, Chills Throat: denies: Sore throat Cardiac: reports: Chest pain / pressure Respiratory: reports: Dyspnea GI: denies: Nausea, Vomiting, Diarrhea Skin: denies: Rash Musculoskeletal: denies: Neck pain, Back pain Neurologic: denies: Headache PD PAST MEDICAL HISTORY - Past Medical History Past Medical History: Yes Cardiovascular: Hypertension, High cholesterol, Peripheral Vascular Disease, Murmur Respiratory: Sleep apnea, CPAP use Neuro: Headaches, Peripheral neuropathy, Fainting Endocrine/Autoimmune: Type 2 diabetes GI: GERD, Cholelithiasis AREA COUNSELOR: Miscarriage(s), Breast cancer : None HEENT: Chronic vision loss, Chronic sinusitis Psych: Anxiety Musculoskeletal: Osteoarthritis Derm: None, Other - Past Surgical History Past Surgical History: Yes Ortho: Spine surgery /AREA COUNSELOR: Tubal ligation, Other - Present Medications Home Medications: Ambulatory Orders Medication Instructions Recorded Confirmed Diclofenac Sodium Dr [Voltaren] 75 mg PO DAILY 06/27/18 08/22/18 Gabapentin 300 mg PO QPM 06/27/18 08/22/18 Metoprolol Tartrate 50 mg PO BID 06/27/18 08/22/18 Sertraline HCl 100 mg PO DAILY 06/27/18 08/22/18 Simvastatin 20 mg PO QPM 06/27/18 08/22/18 metFORMIN [Glucophage] 500 mg PO BIDWM 06/27/18 08/22/18 Aspirin [Aspirin EC] 81 mg PO DAILY 06/29/18 08/22/18 Valsartan 80 mg PO DAILY 07/20/18 08/22/18 Fluticasone [Flonase] 1 sprays FÁTIMA DAILY PRN #1 bottle 07/26/18 08/22/18 Diphenoxylate/Atropine [Lomotil] 1 each PO QID PRN #15 tablet 08/03/18 08/22/18 Loperamide [Imodium] 2 mg PO QID PRN #15 capsule 08/03/18 08/22/18 amLODIPine [Norvasc] 2.5 mg PO DAILY #10 tablet 08/03/18 08/22/18 clonazePAM [KlonoPIN] 1 mg PO TID PRN #15 tablet 08/03/18 08/22/18 traZODone [Desyrel] 25 mg PO QPM #3 tablet 08/03/18 08/22/18 Cefazolin 6gm/150ml 6 g IV DAILY 08/08/18 08/22/18 Enoxaparin [Lovenox] 120 mg SQ BID 08/08/18 08/22/18 - Allergies Allergies/Adverse Reactions: Allergies Allergy/AdvReac Type Severity Reaction Status Date / Time hydroxyzine Allergy Itching Verified 08/30/18 22:12 lorazepam Allergy Emesis Verified 08/30/18 22:12 meclizine Allergy Emesis Verified 08/30/18 22:12 silver Allergy Rash Verified 08/30/18 22:12 [From Tegaderm AG Mesh] codeine AdvReac Nausea Verified 08/30/18 22:12 - Social History Does the pt smoke?: No Smoking Status: Never smoker Does the pt drink ETOH?: No Does the pt have substance abuse?: No - Immunizations Immunizations are current?: Yes - POLST Patient has POLST: No POLST Status: Full Code PD ED PE NORMAL - Vitals Vital signs reviewed: Yes - General General: Alert and oriented X 3, No acute distress, Well developed/nourished - HEENT HEENT: PERRL, Moist mucous membranes - Neck Neck: Supple, no meningeal sign - Cardiac Cardiac: RRR, Strong equal pulses - Respiratory Respiratory: No respiratory distress, Clear bilaterally - Abdomen Abdomen: Soft, Non tender, Non distended - Derm Derm: Warm and dry, No rash - Extremities Extremities: No calf tenderness / cord - Neuro Neuro: Alert and oriented X 3 - Psych Psych: Normal mood, Normal affect Results - Vitals Vitals: Vital Signs - 24 hr 08/30/18 08/30/18 08/30/18 22:09 22:20 22:47 Temperature 37.3 C Heart Rate 77 83 71 Respiratory 18 19 19 Rate Blood Pressure 138/79 H 146/74 H 158/79 H O2 Saturation 95 92 94 08/30/18 08/31/18 08/31/18 23:28 00:00 00:48 Temperature Heart Rate 70 68 75 Respiratory 16 16 16 Rate Blood Pressure 147/76 H 150/83 H 128/97 H O2 Saturation 92 93 91 L 08/31/18 01:37 Temperature Heart Rate 71 Respiratory 16 Rate Blood Pressure 136/76 H O2 Saturation 92 Oxygen O2 Source Room air - EKG (time done) 2215 Rate: Rate (enter#) (85) Rhythm: NSR [place]: Normal Intervals: Normal [place] QRS: Normal Ischemia: ST depression Compare to prior EKG: Unchanged from prior EKG - Labs Labs: Laboratory Tests 08/30/18 08/30/18 08/30/18 22:42 22:42 22:42 WBC 5.4 RBC 2.58 L Hgb 8.4 L Hct 25.0 L MCV 96.5 MCH 32.7 H MCHC 33.8 RDW 14.6 Plt Count 134 MPV 7.5 L Neut # (Auto) 4.1 Lymph # (Auto) 0.7 [place] # (Auto) 0.5 Eos # (Auto) 0.0 Baso # (Auto) 0.0 Absolute Nucleated RBC 0.00 Nucleated RBC % 0.0 Sodium 141 Potassium 2.7 L Chloride 100 L Carbon Dioxide 30 Anion Gap 11.0 BUN 13 Creatinine 0.7 Estimated GFR (MDRD) 85 L Glucose 116 H Calcium 8.2 L Total Bilirubin 1.1 H AST 20 ALT 11 Alkaline Phosphatase 83 Troponin I < 0.04 Total Protein 6.3 L Albumin 3.0 L Globulin 3.3 Albumin/Globulin Ratio 0.9 L Lipase 41 - Rads (name of study) cxr Radiology: Prelim report reviewed, EMP read contemporaneously, See rad report (New left effusion and basilar infiltrate. ) CT chest non-con Radiology: Prelim report reviewed, EMP read contemporaneously, See rad report (Left hemothorax, smaller than previous. Posterior mediastinal mass, measuring 7 cm, which may be the source of the bleeding. This appears to either arise from or compress the esophagus below the level of the reny. ) PD MEDICAL DECISION MAKING - ED course Complexity details: reviewed old records, reviewed results, re-evaluated patient, considered differential, d/w patient, d/w family, d/w fitness sales consultant ED course: 63-year-old female presents to the emergency department with dyspnea today. She was discharged from [facility] in [place] yesterday after being admitted for a hemopneumothorax. She is status post chest tube drainage. The chest tube was removed. Today she started feeling shortness of breath again. Chest x-ray shows a left-sided pleural effusion. Noncontrast CT was undertaken and this shows a recurrent hemothorax. It also reveals a mediastinal mass, unclear etiology, but may be the source of bleeding. Possibly arising from the esophagus? This was also present on the CT scan from August 22. I do not see it on the abdomen and pelvis CT scan however from July 22. Patient will be transferred back to [facility] in [place] for higher level of care. Recontacted at 0040. Will likely need cardiothoracic surgery, oncology and possibly interventional radiology. Discussed the case with Dr. Stroud, hospitalist, who graciously accepts in transfer at 0220. Also discussed with Dr. Peters, CT surgery at 0200 and will consult. COBRA forms completed. This document was made in part using voice recognition software. While efforts are made to proofread this document, sound alike and grammatical errors may occur. Departure - Departure Disposition: 02 Transfer Acute Care Hosp Clinical Impression: Hemothorax on left, Mediastinal mass, Hypokalemia, Anticoagulated Breast cancer Qualifiers: Breast location: unspecified site of breast Estrogen receptor status: unspecified Patient sex: female Laterality: unspecified laterality Qualified Code(s): C50.919 - Malignant neoplasm of unspecified site of unspecified female breast Condition: Stable
--- NOTE | 2018-08-30 22:54 | XRAY Report ---
Reason: dyspnea Procedure Date: 08/30/2018 Accession Number: [id number] / [id number] Procedure: XR - Chest 1 View X-Ray CPT Code: 65222 FULL RESULT: EXAM: CHEST RADIOGRAPHY EXAM DATE: 08/30/2018 10:25 PM. CLINICAL HISTORY: Dyspnea. COMPARISON: CHEST 1 VIEW 08/22/2018 12:31 AM. TECHNIQUE: 1 view. FINDINGS: Lungs/Pleura: Left effusion and basilar infiltrate. No pneumothorax. Mediastinum: Within exam limitations, the cardiomediastinal contour is normal. Other: Stable right subclavian port terminating in the right atrium. IMPRESSION: New left effusion and basilar infiltrate. RADIA
[2018-08-30 23:04] LABS: ALBUMIN/GLOBULIN RATIO 0.9 (1.0-2.2); BILIRUBIN,TOTAL 1.1 mg/dL (0.2-1.0); CALCIUM 8.2 mg/dL (8.5-10.3); CREATININE 0.7 mg/dL (0.4-1.0); TOTAL PROTEIN 6.3 g/dL (6.7-8.2)
[2018-08-30] MEDS ORDERED: POTASSIUM CHLORIDE 20 MEQ TABLET PO STA (23:52)
[2018-08-31] MEDS ORDERED: POTASSIUM CHLOR 20 MEQ/100 ML 20 MEQ/100 ML BAG IV ONE (00:13)
--- NOTE | 2018-08-31 00:36 | CT Report ---
Reason: dyspnea, recent history of hemo/pneumothorax Procedure Date: 08/31/2018 Accession Number: [id number] / [id number] Procedure: CT - CHEST WO CPT Code: FULL RESULT: EXAM: CT CHEST EXAM DATE: 08/31/2018 12:13 AM. CLINICAL HISTORY: Dyspnea, recent history of hemo/pneumothorax. COMPARISONS: CHEST ANGIO 08/22/2018 2:20 AM, subsequent CT without contrast from [facility] [place] 08/24/2018. TECHNIQUE: Routine helical CT imaging was performed through the chest. IV contrast: None. Reconstructions: Coronal and sagittal. In accordance with CT protocol optimization, one or more of the following dose reduction techniques were utilized for this exam: automated exposure control, adjustment of mA and/or KV based on patient size, or use of iterative reconstructive technique. FINDINGS: Lungs/Pleura: High density fluid in the left pleural space, compatible with hemothorax, smaller than previously seen on 08/24/2018. Tiny focus of gas posteriorly within the pneumothorax, which may be related to a previous procedure. No anterior pneumothorax. Left basilar atelectasis. Mediastinum: High density material in the posterior mediastinum, measuring approximately 7 cm. This appears to either arise from or be compressing the mid esophagus, suspicious for mediastinal hematoma, and does appear to be in direct contiguity with the left hemothorax. Bones: Degenerative changes. Visualized Abdomen: Cholelithiasis. Other: None. IMPRESSION: Left hemothorax, smaller than previous. Posterior mediastinal mass, measuring 7 cm, which may be the source of the bleeding. This appears to either arise from or compress the esophagus below the level of the reny. RADIA The critical result notification system was initiated by Dr. José Miguel Perez at 12:24 AM on 08/31/2018. The above critical result findings were discussed with Vinicio Martinez by Dr. José Miguel Perez at 12:34 AM on 08/31/2018.
[2018-08-31] MEDS ORDERED: MORPHINE 2 MG/ML CARPUJECT IVP STA ×2 (00:37→01:32)
[2018-08-31] MEDS ORDERED: SODIUM CHLORIDE 0.9% 1,000 ML IV ONE (00:37)
[2018-08-31 01:38] VITALS: BP 136/76
== END 2018-08-31 03:29 | disposition short-term general hospital (02) ==
LOC: ED 21:59
DX: J94.2 Hemothorax (principal); J90 Pleural effusion, not elsewhere classified; D38.3 Neoplasm of uncertain behavior of mediastinum; C50.919 Malignant neoplasm of unspecified site of unspecified female breast; E87.6 Hypokalemia; Z79.01 Long term (current) use of anticoagulants; Z79.82 Long term (current) use of aspirin; I45.81 Long QT syndrome; I10 Essential (primary) hypertension; E11.42 Type 2 diabetes mellitus with diabetic polyneuropathy; E11.51 Type 2 diabetes mellitus with diabetic peripheral angiopathy without gangrene; Z79.84 Long term (current) use of oral hypoglycemic drugs
CPT/HCPCS: 36415; 71045; 71250; 80053; 83690; 84484; 85025; 93005; 96365; 96375; 96376; 99284; 99285

== ENCOUNTER 2018-08-31 03:30 | Outpatient (CLI) | payer MEDICAID | END 2018-08-31 03:31 | disposition short-term general hospital (02) | LOC: EMS 03:30 | PROVIDERS: ATTEND Surgery | DX: J94.2 Hemothorax (principal) | CPT/HCPCS: A0425; A0426; A0999 ==

== ENCOUNTER 2018-09-12 08:00 | Outpatient (CLI) | payer MEDICAID | END 2018-09-12 23:59 | disposition home or self-care (01) | LOC: LAB.N 08:00 | PROVIDERS: ATTEND Nurse Practitioner Gerontology | DX: D68.59 Other primary thrombophilia (principal) | CPT/HCPCS: 85610 ==

== ENCOUNTER 2018-09-14 11:00 | Outpatient (CLI) | payer MEDICAID | END 2018-09-14 23:59 | disposition home or self-care (01) | LOC: LAB.N 11:00 | PROVIDERS: ATTEND Nurse Practitioner Gerontology | DX: D68.59 Other primary thrombophilia (principal) | CPT/HCPCS: 85610 ==

== ENCOUNTER 2018-09-15 14:41 | Emergency (ER) | payer MEDICAID ==
[2018-09-15] MEDS ORDERED: LIDOCAINE 1%-EPI 1:100000 30 ML MDV SUBQ STA (16:27)
--- NOTE | 2018-09-15 16:29 | ED Physician Documentation ---
PD HPI SKIN - Stated complaint Stated Complaint: PORT WOUND - Chief complaint Chief Complaint: Wound - History obtained from History obtained from: Patient - History of Present Illness Timing - onset: Other (63-year-old woman with breast cancer, undergoing chemotherapy but I guess her chemo is going to stop for a surgical procedure. She has a right chest wall PowerPort that is dehisced and needs it removed.) Review of Systems Ten Systems: 10 systems reviewed and negative Constitutional: denies: Fever, Chills Respiratory: denies: Dyspnea, Cough GI: denies: Abdominal Pain PD PAST MEDICAL HISTORY - Past Medical History Cardiovascular: Hypertension, High cholesterol, Peripheral Vascular Disease, Murmur Respiratory: Sleep apnea, CPAP use Neuro: Headaches, Peripheral neuropathy, Fainting Endocrine/Autoimmune: Type 2 diabetes GI: GERD, Cholelithiasis PROTECTION CONSULTANT: Miscarriage(s), Breast cancer : None HEENT: Chronic vision loss, Chronic sinusitis Psych: Anxiety Musculoskeletal: Osteoarthritis Derm: None, Other - Past Surgical History Past Surgical History: Yes Ortho: Spine surgery /PROTECTION CONSULTANT: Tubal ligation, Other - Present Medications Home Medications: Ambulatory Orders Medication Instructions Recorded Confirmed Gabapentin 300 mg PO QPM 06/27/18 09/12/18 Metoprolol Tartrate 50 mg PO BID 06/27/18 09/12/18 Sertraline HCl 100 mg PO DAILY 06/27/18 09/12/18 Simvastatin 20 mg PO QPM 06/27/18 09/12/18 metFORMIN [Glucophage] 500 mg PO BIDWM 06/27/18 09/12/18 Fluticasone [Flonase] 1 sprays FÁTIMA DAILY PRN #1 bottle 07/26/18 09/12/18 Diphenoxylate/Atropine [Lomotil] 1 each PO QID PRN #15 tablet 08/03/18 09/12/18 Loperamide [Imodium] 2 mg PO QID PRN #15 capsule 08/03/18 09/12/18 clonazePAM [KlonoPIN] 1 mg PO TID PRN #15 tablet 08/03/18 09/12/18 traZODone [Desyrel] 25 mg PO QPM #3 tablet 08/03/18 09/12/18 Acetaminophen 500 mg PO PRN PRN 09/12/18 09/12/18 Esomeprazole Magnesium 20 mg PO DAILY 09/12/18 09/12/18 Fluconazole 200 mg PO DAILY 09/12/18 09/12/18 Lidocaine/Prilocaine 30 gm TOP PRN PRN 09/12/18 09/12/18 [Lidocaine-Prilocaine Cream] Nystatin 2 mg PO PRN PRN 09/12/18 09/12/18 Polyethylene Glycol 3350 [Miralax] 17 gm PO PRN PRN 09/12/18 09/12/18 Prochlorperazine [Compazine] 5 mg PO PRN PRN 09/12/18 09/12/18 Senna [Senokot] 8.6 mg PO PRN PRN 09/12/18 09/12/18 Warfarin [Coumadin] 5 mg PO DAILY 09/12/18 09/12/18 dexAMETHasone [Dexamethasone] 4 mg PO BID 09/12/18 09/12/18 oxyCODONE [Roxicodone] 5 mg PO PRN PRN 09/12/18 09/12/18 Cephalexin [Keflex] 500 mg PO QID 5 Days #20 capsule 09/14/18 Pantoprazole [Protonix] 40 mg PO DAILY #30 tablet 09/14/18 - Allergies Allergies/Adverse Reactions: Allergies Allergy/AdvReac Type Severity Reaction Status Date / Time hydroxyzine Allergy Itching Verified 09/12/18 14:54 lorazepam Allergy Emesis Verified 09/12/18 14:54 meclizine Allergy Emesis Verified 09/12/18 14:54 codeine AdvReac Nausea Verified 09/12/18 14:54 silver AdvReac Rash Verified 09/15/18 14:58 [From Tegaderm AG Mesh] - Social History Does the pt smoke?: No Smoking Status: Never smoker Does the pt drink ETOH?: No Does the pt have substance abuse?: No - Immunizations Immunizations are current?: Yes - POLST Patient has POLST: No POLST Status: Full Code PD ED PE NORMAL - Vitals Vital signs reviewed: Yes - General General: Alert and oriented X 3, No acute distress, Well developed/nourished - Neck Neck: Supple, no meningeal sign, No bony TTP - Cardiac Cardiac: RRR, No murmur, Other (PowerPort right chest wall with about a dime size area of dehiscence and the port bubble is visible.) - Respiratory Respiratory: No respiratory distress, Clear bilaterally - Neuro Neuro: Alert and oriented X 3, Normal speech Results - Vitals Vitals: Vital Signs - 24 hr 09/15/18 14:54 Temperature 37.2 C Heart Rate 86 Respiratory 18 Rate Blood Pressure 131/76 H O2 Saturation 99 Oxygen O2 Source Room air PD MEDICAL DECISION MAKING - ED course ED course: Dr. Frye the on-call surgeon came in and removed her port and sutured it closed. Departure - Departure Disposition: 01 Home, Self Care Clinical Impression: Postoperative wound dehiscence Qualifiers: Encounter type: initial encounter Qualified Code(s): T81.31XA - Disruption of external operation (surgical) wound, not elsewhere classified, initial encounter Breast cancer Qualifiers: Breast location: unspecified site of breast Estrogen receptor status: unspecified Patient sex: female Laterality: unspecified laterality Qualified Code(s): C50.919 - Malignant neoplasm of unspecified site of unspecified female breast Condition: Good Record reviewed to determine appropriate education?: Yes Instructions: ED Wound Care Follow-Up: Dani Frye MD [Provider Admit Priv/Credential] - 09/21/18
[2018-09-15] MEDS ORDERED: LIDOCAINE 1%-EPI 1:100000 20 ML MDV SUBQ SCH (16:45)
[2018-09-15] MEDS ORDERED: LIDOCAINE 2%-EPI 1:100000 20 ML MDV ONE (16:48)
[2018-09-15 17:49] VITALS: BP 131/74
--- NOTE | 2018-09-15 18:50 | CONSULTATION NOTE ---
Referring Provider Name of Referring Provider:: Dr. Martinez Consult Date: 09/15/18 Chief Complaint - Chief Complaint Chief Complaint: port site breakdown History of Present Illness - History Obtained From Records Reviewed: yes History obtained from: pt, records Exam Limitations: none - History of Present Illness HPI Comment/Other: 63 yo female with locally advanced breast cancer who had a port placed 06/23/18 to facilitate neoadjuvant chemotherapy. The port malfunctioned and required revision on 07/28/18. Since that time the skin overlying the port has been healing poorly, with superficial dehiscence which did not respond to wound care, and today presents with an area of complete wound breakdown with exposure of the port. There has been no fever, redness, or purulent discharge. She has had multiple hospitalizations over the past several months for various complications from chemotherapy, and is currently in the midst of a 7 day course of oral cephalosporin therapy. She is anticoagulated with warfarin for recent VTE. An INR yesterday was 1.6. She has decided that she no longer wishes to continue chemotherapy and desires port removal. History - Past Medical History Cardiovascular: reports: Hypertension, High cholesterol, Peripheral Vascular Disease, Murmur Respiratory: reports: Sleep apnea, CPAP use Neuro: reports: Headaches, Peripheral neuropathy, Fainting Endocrine/Autoimmune: reports: Type 2 diabetes GI: reports: GERD, Cholelithiasis DIRECTOR OF HEALTHCARE SYSTEMS: reports: Miscarriage(s), Breast cancer : reports: None HEENT: reports: Chronic vision loss, Chronic sinusitis Psych: reports: Anxiety Musculoskeletal: reports: Osteoarthritis Derm: reports: None, Other MRSA Hx?: No - Past Surgical History Ortho: reports: Spine surgery /DIRECTOR OF HEALTHCARE SYSTEMS: reports: Tubal ligation, Other - Family & Social History Family History: Mother: , CAD, Obesity, Father: , CAD, Sister: , CAD, Diabetes, Type 2, Obesity, Brother: , CAD, Diabetes, Type 2, Obesity Family History Comment/Other: Patient is one of 7 siblings, 6 are still living, parents are Social History Notes: The patient has lived in [place] for the past 24 years. 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 She lives alone, has a son and a daughter who have their own lives making minimum wage, so cannot help their mother out much. She has been for the past 16 years, never re-. Since her breast cancer treatments, her sister Saturnino has been supportive by staying with her, but lives in [place], so is not a reliable, long-term support. She denies the use of tobacco, alcohol, or illicit drugs. She wishes to be a full code. - Substance History Use: Uses substance without health or social issues: NONE - POLST Patient has POLST: No POLST Status: Full Code Meds/Allgy - Home Medications Home Medications: Ambulatory Orders Medication Instructions Recorded Confirmed Gabapentin 300 mg PO QPM 06/27/18 09/12/18 Metoprolol Tartrate 50 mg PO BID 06/27/18 09/12/18 Sertraline HCl 100 mg PO DAILY 06/27/18 09/12/18 Simvastatin 20 mg PO QPM 06/27/18 09/12/18 metFORMIN [Glucophage] 500 mg PO BIDWM 06/27/18 09/12/18 Fluticasone [Flonase] 1 sprays FÁTIMA DAILY PRN #1 bottle 07/26/18 09/12/18 Diphenoxylate/Atropine [Lomotil] 1 each PO QID PRN #15 tablet 08/03/18 09/12/18 Loperamide [Imodium] 2 mg PO QID PRN #15 capsule 08/03/18 09/12/18 clonazePAM [KlonoPIN] 1 mg PO TID PRN #15 tablet 08/03/18 09/12/18 traZODone [Desyrel] 25 mg PO QPM #3 tablet 08/03/18 09/12/18 Acetaminophen 500 mg PO PRN PRN 09/12/18 09/12/18 Esomeprazole Magnesium 20 mg PO DAILY 09/12/18 09/12/18 Fluconazole 200 mg PO DAILY 09/12/18 09/12/18 Lidocaine/Prilocaine 30 gm TOP PRN PRN 09/12/18 09/12/18 [Lidocaine-Prilocaine Cream] Nystatin 2 mg PO PRN PRN 09/12/18 09/12/18 Polyethylene Glycol 3350 [Miralax] 17 gm PO PRN PRN 09/12/18 09/12/18 Prochlorperazine [Compazine] 5 mg PO PRN PRN 09/12/18 09/12/18 Senna [Senokot] 8.6 mg PO PRN PRN 09/12/18 09/12/18 Warfarin [Coumadin] 5 mg PO DAILY 09/12/18 09/12/18 dexAMETHasone [Dexamethasone] 4 mg PO BID 09/12/18 09/12/18 oxyCODONE [Roxicodone] 5 mg PO PRN PRN 09/12/18 09/12/18 Cephalexin [Keflex] 500 mg PO QID 5 Days #20 capsule 09/14/18 Pantoprazole [Protonix] 40 mg PO DAILY #30 tablet 09/14/18 - Allergies Allergies/Adverse Reactions: Allergies Allergy/AdvReac Type Severity Reaction Status Date / Time hydroxyzine Allergy Itching Verified 09/12/18 14:54 lorazepam Allergy Emesis Verified 09/12/18 14:54 meclizine Allergy Emesis Verified 09/12/18 14:54 codeine AdvReac Nausea Verified 09/12/18 14:54 silver AdvReac Rash Verified 09/15/18 14:58 [From [employer] Mesh] Review of Systems - Hematologic/Lymphatic Hematologic/Lymphatic: reports: Blood clots. denies: Bleeding tendencies Exam - Vital Signs Reviewed Vital Signs: Yes Vital Signs: Vital Signs x48h Temp Pulse Resp BP Pulse Ox 09/15/18 17:48 84 16 131/74 H 99 09/15/18 14:54 37.2 C 86 18 131/76 H 99 - Physical Exam General Appearance: positive: No acute distress, Alert Respiratory: positive: Chest non-tender, No respiratory distress, Breath sounds nml, Other (port site right infraclavicular fossa; lateral 1 cm with complete skin breakdown and exposure of the port reservoir; no surrounding erythema; no drainage, nontender, no fluctuance.) Conclusion/Plan - Diagnosis Diagnosis: Wound breakdown/deshiscence with exposure of port reservoir; at high risk for infection althought none evident today. This is likely due to poor wound healing relating to underlying malignancy and ongoing chemotherapy. - Plan Plan: Port removal today under local anesthesia was performed in the ER. See separate report. Appropriate wound care and f/u instructions were given. - Lab Results Lab results reviewed: Yes Other Lab Results: recent CBC, INR satisfactory.
--- NOTE | 2018-09-15 19:12 | PROCEDURE REPORT ---
Hospitalist Procedure Note - Procedure Note Procedure Note: PORT REMOVAL NOTE After informed consent, pt was placed supine and the skin surrounding the port site in the right infraclavicular fossa was prepped with hibiclens and draped in the usual sterile fashion. 2% lidocaine with epi was used for local anesthesia. A total of 15 ml was used. A 15 blade scalpel was used to enlarge the area of dehiscence medially and laterally to fully expose the port reservoir. The anchoring sutures were cut and removed. The reservoir was bluntly and sharply mobilized free of the investing soft tissue capsule and was then removed together with its attached catheter in its entirety and was discarded. Hemostasis was achieved with electrocautery. Wound edges were sharply debrided to viable bleeding tissue, following which wound closure was performed in layers, using continuous 4-0 Vicryl for the subcutaneous tissue and continuous 4-0 nylon for the skin. A DermaBond dressing was applied and the procedure was terminated without apparent complication. Appropriate wound care and f/u instructions were given. Pt will complete the current regimen of oral cephalosporin antibiotic.
== END 2018-09-15 17:49 | disposition home or self-care (01) ==
LOC: ED 14:41
DX: T81.31XA Disruption of external operation (surgical) wound, not elsewhere classified, initial encounter (principal); Y83.8 Other surgical procedures as the cause of abnormal reaction of the patient, or of later complication, without mention of misadventure at the time of the procedure; C50.919 Malignant neoplasm of unspecified site of unspecified female breast; I10 Essential (primary) hypertension; E11.42 Type 2 diabetes mellitus with diabetic polyneuropathy; E11.51 Type 2 diabetes mellitus with diabetic peripheral angiopathy without gangrene; Z79.84 Long term (current) use of oral hypoglycemic drugs
CPT/HCPCS: 36590; 99283

== ENCOUNTER 2018-09-25 08:00 | Outpatient (CLI) | payer MEDICAID | END 2018-09-25 23:59 | disposition home or self-care (01) | LOC: LAB.N 08:00 | PROVIDERS: ATTEND Nurse Practitioner Gerontology | DX: D68.59 Other primary thrombophilia (principal) | CPT/HCPCS: 85610 ==

== ENCOUNTER 2018-10-13 10:24 | Outpatient (CLI) | payer MEDICAID ==
[2018-10-13 12:04] LABS: BASOPHILS % (AUTO) 0.9 %; EOSINOPHILS # (AUTO) 0.1 10^3/uL (0.0-0.7); EOSINOPHILS % (AUTO) 1.8 %; HGB - HEMOGLOBIN 10.1 g/dL (12.0-16.0); LYMPHOCYTES # (AUTO) 1.4 10^3/uL (1.5-3.5); LYMPHOCYTES % (AUTO) 29.5 %; MEAN CORPUSCULAR HGB CONC 30.2 g/dL (32.0-36.0); MEAN PLATELET VOLUME 10.3 fL (7.9-10.8); MONOCYTES # (AUTO) 0.7 10^3/uL (0.0-1.0); MONOCYTES % (AUTO) 15.1 %; NEUTROPHILS # (AUTO) 2.4 10^3/uL (1.5-6.6); NEUTROPHILS % (AUTO) 52.3 %; PLT - PLATELET COUNT 252 10^3/uL (130-450); RED BLOOD COUNT 3.48 10^6/uL (4.20-5.40); RED CELL DISTRIBUTION WIDTH 14.4 % (12.0-15.0); WHITE BLOOD COUNT 4.6 x10^3/uL (4.8-10.8)
[2018-10-13 12:14] LABS: ALBUMIN 3.6 g/dL (3.2-5.5); ALBUMIN/GLOBULIN RATIO 0.9 (1.0-2.2); BILIRUBIN,TOTAL 0.6 mg/dL (0.2-1.0); CALCIUM 9.1 mg/dL (8.5-10.3); CREATININE 0.6 mg/dL (0.4-1.0); TOTAL PROTEIN 7.5 g/dL (6.7-8.2)
== END 2018-10-13 23:59 | disposition home or self-care (01) ==
LOC: LAB.N 10:24
PROVIDERS: ATTEND Nurse Practitioner Gerontology
DX: D68.59 Other primary thrombophilia (principal); C50.412 Malignant neoplasm of upper-outer quadrant of left female breast
CPT/HCPCS: 36415; 80053; 85025; 85610

== ENCOUNTER 2018-10-25 08:00 | Outpatient (CLI) | payer MEDICAID | END 2018-10-25 23:59 | disposition home or self-care (01) | LOC: LAB.N 08:00 | PROVIDERS: ATTEND Nurse Practitioner Gerontology | DX: D68.59 Other primary thrombophilia (principal) | CPT/HCPCS: 85610 ==

== ENCOUNTER 2018-10-25 16:01 | Outpatient (CLI) | payer MEDICAID ==
--- NOTE | 2018-10-25 17:35 | Ultrasound Report ---
Reason: LT BREAST CA, H/O DVT Procedure Date: 10/25/2018 Accession Number: [id number] / [id number] Procedure: US - Duplex Ext Veins Right CPT Code: FULL RESULT: EXAM: RIGHT UPPER EXTREMITY VENOUS ULTRASOUND EXAM DATE: 10/25/2018 04:54 PM. CLINICAL HISTORY: LT BREAST CA, H/O DVT. COMPARISON: None. TECHNIQUE: Real-time sonographic vascular imaging was performed by the mining engineering technologist through the upper extremity utilizing both color-flow and Doppler spectral analysis. Multiple medical field representative static images were saved for review. FINDINGS: Internal Jugular Vein (IJV): Normal. Subclavian Vein (SCV): Normal. Axillary Vein : Normal. Cephalic Vein (superficial vein): Normal. Basilic Vein (superficial vein): Normal. Brachial Vein: Normal. Contralateral Side: Subclavian Vein: Normal. Other: None. IMPRESSION: No evidence for deep vein thrombosis in the visualized right upper extremity. RADIA The call report notification system was initiated by Dr. Jaskaran Sullivan at 05:34 PM on 10/25/2018.
== END 2018-10-25 16:02 | disposition home or self-care (01) ==
LOC: DI 16:01
PROVIDERS: ATTEND Internal Medicine Hematology & Oncology
DX: C50.912 Malignant neoplasm of unspecified site of left female breast (principal); Z86.718 Personal history of other venous thrombosis and embolism; D68.59 Other primary thrombophilia
CPT/HCPCS: 85610

== ENCOUNTER 2018-12-04 09:28 | Day surgery (SDC) | payer MEDICAID ==
[2018-12-04 10:21] VITALS: BP 131/62
--- NOTE | 2018-12-04 12:00 | ANESTHESIA PROCEDURE NOTE ---
Anesth Central Line Template - Central Line Central Line Preparation: Consent Obtained, Time out completed, Ultrasound used, Sterile prep and drape Central line location: Right Subclavian (R Basilic v) Central line type: Other (5FR dual lumen) Central line catheter tip site resides: Subclavian vein Central line aftercare: Secured, Placement confirmed, No pneumothorax, No complications, Bundle checklist complete, Pt tolerated well (5FR dual lumen cath placed after accessing R basilic with US. Cath cut to 43 after measuring from insertion. Dilator placed, wire removed. Cath floated to 33 and unable to advance further after multiple attempts. Neck and arm manipulated to assist in advancement. Cath advanced remaining 10 cm but found to be coiled in vessel or under skin just proximal to insertion site on Xray. Saline flush also provided discomfort to pt at R arm. Coil measured at 4cm x 1 loop. Cath pulled pulled back to 33 (10 exposed, steri-strips to secure loop) as per radiology read and may be used as a midline per MAC (safe for use with her particular chemotherapy). New tegaderm to site after ports/caps aspirate and flush easily without discomfort. Entire process explained to pt at conclusion and any qu estions she hads were answered.)
--- NOTE | 2018-12-05 14:19 | XRAY Report ---
Reason: PICC LINE PLACEMENT Procedure Date: 12/04/2018 Accession Number: [id number] / [id number] Procedure: XR - Chest for Line Placement CPT Code: FULL RESULT: EXAM: CHEST RADIOGRAPHY EXAM DATE: 12/04/2018 11:20 AM. CLINICAL HISTORY: PICC LINE PLACEMENT. COMPARISON: CHEST 1 VIEW 08/30/2018 10:14 PM. TECHNIQUE: 1 view. FINDINGS: Lungs/Pleura: No focal opacities evident. No pleural effusion. No pneumothorax. Mediastinum: Within exam limitations, the cardiomediastinal contour is stable. Other: Right arm PICC takes a 360 degree turn in the axillary region with the catheter tip terminating at the level of the right subclavian vein. IMPRESSION: Malpositioned PICC. CRITICAL RESULT: The findings were discussed with the operating clinicianat approximately 11:15 AM on 12/04/2018. RADHA
== END 2018-12-04 09:29 | disposition home or self-care (01) ==
LOC: SDS 09:28
PROVIDERS: ATTEND Nurse Anesthetist, Certified Registered
PROC: 05H533Z Insertion of Infusion Device into Right Subclavian Vein, Percutaneous Approach (ICD-10-PCS; principal; 2018-12-04 10:30)
DX: C50.919 Malignant neoplasm of unspecified site of unspecified female breast (principal); Z86.718 Personal history of other venous thrombosis and embolism
CPT/HCPCS: 36569; C1751; 71045

== ENCOUNTER 2018-12-08 08:00 | Outpatient (CLI) | payer MEDICAID | END 2018-12-08 23:59 | disposition home or self-care (01) | LOC: LAB.N 08:00 | PROVIDERS: ATTEND Nurse Practitioner Gerontology | DX: D68.59 Other primary thrombophilia (principal) | CPT/HCPCS: 85610 ==

== ENCOUNTER 2018-12-12 09:13 | Outpatient (CLI) | payer MEDICAID | END 2018-12-12 09:14 | disposition home or self-care (01) | LOC: LAB 09:13 | PROVIDERS: ATTEND Family Medicine | DX: D68.59 Other primary thrombophilia (principal) | CPT/HCPCS: 85610 ==

== ENCOUNTER 2018-12-14 08:56 | Outpatient (CLI) | payer MEDICAID | END 2018-12-14 08:57 | disposition home or self-care (01) | LOC: DI 08:56 | PROVIDERS: ATTEND Internal Medicine Hematology & Oncology | DX: C50.912 Malignant neoplasm of unspecified site of left female breast (principal); Z17.0 Estrogen receptor positive status [ER+] | CPT/HCPCS: 93306 ==

== ENCOUNTER 2018-12-19 12:24 | Outpatient (CLI) | payer MEDICAID | END 2018-12-19 12:25 | disposition home or self-care (01) | LOC: LAB 12:24 | PROVIDERS: ATTEND Family Medicine | DX: D68.59 Other primary thrombophilia (principal) | CPT/HCPCS: 85610 ==

== ENCOUNTER 2018-12-19 18:29 | Emergency (ER) | payer MEDICAID ==
--- NOTE | 2018-12-19 20:15 | ED Physician Documentation ---
History of Present Illness - Stated complaint Stated Complaint: PIK LINE BLEEDING - Chief complaint Chief Complaint: General - History obtained from History obtained from: Patient - History of Present Illness Timing: Today (63-year-old woman with a right arm PICC line, she had IV hydration today via it and after return home he was bleeding under the dressing.) Review of Systems Constitutional: reports: Reviewed and negative Throat: reports: Reviewed and negative Cardiac: reports: Reviewed and negative PD PAST MEDICAL HISTORY - Past Medical History Past Medical History: Yes Cardiovascular: Hypertension, High cholesterol, Peripheral Vascular Disease, Murmur Respiratory: Sleep apnea, CPAP use Neuro: Headaches, Peripheral neuropathy, Fainting Endocrine/Autoimmune: Type 2 diabetes GI: GERD, Cholelithiasis PROPELLER INSPECTOR: Miscarriage(s), Breast cancer : None HEENT: Chronic vision loss, Chronic sinusitis Psych: Anxiety Musculoskeletal: Osteoarthritis Derm: None, Other - Past Surgical History Past Surgical History: Yes Ortho: Spine surgery /PROPELLER INSPECTOR: Tubal ligation, Other - Present Medications Home Medications: Ambulatory Orders Medication Instructions Recorded Confirmed Gabapentin 300 mg PO QPM 06/27/18 12/19/18 Metoprolol Tartrate 50 mg PO BID 06/27/18 12/19/18 Sertraline HCl 100 mg PO DAILY 06/27/18 12/19/18 Simvastatin 20 mg PO QPM 06/27/18 12/19/18 metFORMIN [Glucophage] 500 mg PO BIDWM 06/27/18 12/19/18 Diphenoxylate/Atropine [Lomotil] 1 each PO QID PRN #15 tablet MDD 8 08/03/18 12/19/18 tabs Loperamide [Imodium] 2 mg PO QID PRN #15 capsule 08/03/18 12/19/18 clonazePAM [KlonoPIN] 1 mg PO TID PRN #15 tablet 08/03/18 12/19/18 traZODone [Desyrel] 25 mg PO QPM #3 tablet 08/03/18 12/19/18 Acetaminophen 500 mg PO PRN PRN 09/12/18 12/19/18 Fluconazole 200 mg PO DAILY 09/12/18 12/19/18 Lidocaine/Prilocaine 30 gm TOP PRN PRN 09/12/18 12/19/18 [Lidocaine-Prilocaine Cream] Prochlorperazine [Compazine] 5 mg PO PRN PRN 09/12/18 12/19/18 Senna [Senokot] 8.6 mg PO PRN PRN 09/12/18 12/19/18 dexAMETHasone [Dexamethasone] 8 mg PO BID PRN 09/12/18 12/19/18 oxyCODONE [Roxicodone] 5 mg PO PRN PRN 09/12/18 12/19/18 Warfarin [Coumadin] 1 mg PO 1400 12/05/18 12/19/18 Scopolamine 1 each TD Q72H PRN 12/12/18 12/19/18 - Allergies Allergies/Adverse Reactions: Allergies Allergy/AdvReac Type Severity Reaction Status Date / Time hydroxyzine Allergy Itching Verified 12/19/18 13:07 lorazepam Allergy Emesis Verified 12/19/18 13:07 meclizine Allergy Emesis Verified 12/19/18 13:07 codeine AdvReac Nausea Verified 12/19/18 13:07 silver AdvReac Rash Verified 12/19/18 13:07 [From Tegaderm [employer] Mesh] - Social History Does the pt smoke?: No Smoking Status: Never smoker Does the pt drink ETOH?: No Does the pt have substance abuse?: No - Immunizations Immunizations are current?: Yes - POLST Patient has POLST: No POLST Status: Full Code PD ED PE NORMAL - Vitals Vital signs reviewed: Yes - General General: Alert and oriented X 3, No acute distress - Extremities Extremities: Other (There is a 2 lm PICC line in the right arm, there is blood under the dressing but it does not seem to be actively bleeding.) - Neuro Neuro: Alert and oriented X 3, Normal speech Results - Vitals Vitals: Vital Signs - 24 hr 12/19/18 18:52 Temperature 37 C Heart Rate 80 Respiratory 18 Rate Blood Pressure 140/70 H O2 Saturation 97 Oxygen O2 Source Room air PD MEDICAL DECISION MAKING - ED course ED course: 63-year-old woman presents with bleeding from her PICC line. She had an INR done earlier today and it was 2.0. Using sterile technique the current dressing was removed and replaced, the area was ChloraPrep. One line was occluded but the other one flushed with heparin. That one was already known to be occluded. Departure - Departure Disposition: 01 Home, Self Care Clinical Impression: Bleeding from PICC line Qualifiers: Encounter type: initial encounter Qualified Code(s): T82.838A - Hemorrhage due to vascular prosthetic devices, implants and grafts, initial encounter Condition: Good Record reviewed to determine appropriate education?: Yes Instructions: ED PICC Line Care
[2018-12-19 21:01] VITALS: BP 127/65
== END 2018-12-19 21:13 | disposition home or self-care (01) ==
LOC: ED 18:29
DX: T82.838A Hemorrhage due to vascular prosthetic devices, implants and grafts, initial encounter (principal); Y84.8 Other medical procedures as the cause of abnormal reaction of the patient, or of later complication, without mention of misadventure at the time of the procedure; Z79.01 Long term (current) use of anticoagulants; I10 Essential (primary) hypertension; E11.42 Type 2 diabetes mellitus with diabetic polyneuropathy; E11.51 Type 2 diabetes mellitus with diabetic peripheral angiopathy without gangrene; Z79.84 Long term (current) use of oral hypoglycemic drugs
CPT/HCPCS: 99282; 99283

== ENCOUNTER 2018-12-22 15:34 | Emergency (ER) | payer MEDICAID ==
--- NOTE | 2018-12-22 16:13 | ED Physician Documentation ---
PD HPI UPPER EXT INJURY - Stated complaint Stated Complaint: PIC LINE BLEED/BILAT LEG/R ARM SWELLING - Chief complaint Chief Complaint: Ext Problem - History obtained from History obtained from: Patient - History of Present Illness Location: Other (63-year-old woman with breast cancer undergoing chemotherapy. She has a right upper extremity PICC line that is about 2 weeks old that is been giving her problems. She has has a history of DVTs and is on warfarin. The PICC line bled again today and now she has right upper extremity and both lower extremity swelling for the last couple of days not associated with chest pain or trouble breathing.) Review of Systems Ten Systems: 10 systems reviewed and negative Constitutional: denies: Fever, Chills Cardiac: denies: Chest pain / pressure, Palpitations Respiratory: denies: Dyspnea, Cough GI: denies: Abdominal Pain PD PAST MEDICAL HISTORY - Past Medical History Cardiovascular: Hypertension, High cholesterol, Peripheral Vascular Disease, Murmur Respiratory: Sleep apnea, CPAP use Neuro: Headaches, Peripheral neuropathy, Fainting Endocrine/Autoimmune: Type 2 diabetes GI: GERD, Cholelithiasis FOCUSING MACHINE OPERATOR: Miscarriage(s), Breast cancer : None HEENT: Chronic vision loss, Chronic sinusitis Psych: Anxiety Musculoskeletal: Osteoarthritis Derm: None, Other - Past Surgical History Past Surgical History: Yes Ortho: Spine surgery /FOCUSING MACHINE OPERATOR: Tubal ligation, Other - Present Medications Home Medications: Ambulatory Orders Medication Instructions Recorded Confirmed Gabapentin 300 mg PO QPM 06/27/18 12/19/18 Metoprolol Tartrate 50 mg PO BID 06/27/18 12/19/18 Sertraline HCl 100 mg PO DAILY 06/27/18 12/19/18 Simvastatin 20 mg PO QPM 06/27/18 12/19/18 metFORMIN [Glucophage] 500 mg PO BIDWM 06/27/18 12/19/18 Diphenoxylate/Atropine [Lomotil] 1 each PO QID PRN #15 tablet MDD 8 08/03/18 12/19/18 tabs Loperamide [Imodium] 2 mg PO QID PRN #15 capsule 08/03/18 12/19/18 clonazePAM [KlonoPIN] 1 mg PO TID PRN #15 tablet 08/03/18 12/19/18 traZODone [Desyrel] 25 mg PO QPM #3 tablet 08/03/18 12/19/18 Acetaminophen 500 mg PO PRN PRN 09/12/18 12/19/18 Fluconazole 200 mg PO DAILY 09/12/18 12/19/18 Lidocaine/Prilocaine 30 gm TOP PRN PRN 09/12/18 12/19/18 [Lidocaine-Prilocaine Cream] Prochlorperazine [Compazine] 5 mg PO PRN PRN 09/12/18 12/19/18 Senna [Senokot] 8.6 mg PO PRN PRN 09/12/18 12/19/18 dexAMETHasone [Dexamethasone] 8 mg PO BID PRN 09/12/18 12/19/18 oxyCODONE [Roxicodone] 5 mg PO PRN PRN 09/12/18 12/19/18 Warfarin [Coumadin] 1 mg PO 1400 12/05/18 12/19/18 Scopolamine 1 each TD Q72H PRN 12/12/18 12/19/18 Enoxaparin Sodium [Lovenox] 100 mg SQ BID #10 unit 12/22/18 - Allergies Allergies/Adverse Reactions: Allergies Allergy/AdvReac Type Severity Reaction Status Date / Time hydroxyzine Allergy Itching Verified 12/22/18 15:43 lorazepam Allergy Emesis Verified 12/22/18 15:43 meclizine Allergy Emesis Verified 12/22/18 15:43 codeine AdvReac Nausea Verified 12/22/18 15:43 silver AdvReac Rash Verified 12/22/18 15:43 [From Tegade[employer] Mesh] - Social History Does the pt smoke?: No Smoking Status: Never smoker Does the pt drink ETOH?: No Does the pt have substance abuse?: No - Immunizations Immunizations are current?: Yes - POLST Patient has POLST: No POLST Status: Full Code PD ED PE NORMAL - Vitals Vital signs reviewed: Yes - General General: Alert and oriented X 3, No acute distress - Neck Neck: Supple, no meningeal sign, No bony TTP - Cardiac Cardiac: RRR, No murmur - Respiratory Respiratory: No respiratory distress, Clear bilaterally - Abdomen Abdomen: Non tender - Back Back: No CVA TTP, No spinal TTP - Derm Derm: Normal color, Warm and dry - Extremities Extremities: Other (New since when I saw her a few days ago she certainly does have asymmetric swelling of the right upper extremity basically from the PICC line down. There is no warmth or redness. There is a small amount of blood under the dressing, less than 5 mL. She has symmetric pedal edema of both legs with some left calf tenderness and positive Homans sign on the left.) - Neuro Neuro: Alert and oriented X 3, Normal speech Results - Vitals Vitals: Vital Signs - 24 hr 12/22/18 12/22/18 15:41 15:43 Temperature 36.8 C Heart Rate 63 63 Respiratory 18 18 Rate Blood Pressure 108/57 L 108/57 L O2 Saturation 95 95 Oxygen O2 Source Room air - Labs Labs: Laboratory Tests 12/22/18 12/22/18 12/22/18 16:26 16:26 16:26 WBC 5.6 RBC 3.43 L Hgb 10.2 L Hct 32.2 L MCV 93.9 MCH 29.7 MCHC 31.7 L RDW 16.8 H Plt Count 141 MPV 10.3 Neut # (Auto) 3.4 Lymph # (Auto) 1.4 L Morris # (Auto) 0.7 Eos # (Auto) 0.0 Baso # (Auto) 0.0 Absolute Nucleated RBC 0.00 Nucleated RBC % 0.0 PT 16.3 H INR 1.4 H Sodium 145 Potassium 3.6 Chloride 109 Carbon Dioxide 27 Anion Gap 9.0 BUN 18 Creatinine 0.5 Estimated GFR (MDRD) 125 Glucose 134 H Calcium 8.5 - Rads (name of study) Doppler ultrasounds of both legs and the right upper extremity Radiology: EMP read contemporaneously (Partially occlusive thrombus in the mid and distal right subclavian vein surrounding the PICC line, distal subclavian vein with normal flow and no thrombus. No Doppler flow in the basilic vein. No lower extremity DVT.) PD MEDICAL DECISION MAKING - ED course ED course: 63-year-old woman who is undergoing cancer treatment. She has a history of DVT and is on warfarin. She was therapeutic a few days ago but now has swelling of the lower extremities in the right upper extremity. Found to have a PICC line associated DVT in the right upper extremity, and now her INR is subtherapeutic at 1.4. Patient had been on Lovenox in the past and was very hesitant to restart it tonight, certainly did not want to be on it long-term. A call was placed to [facility] oncology to recheck to them for recommendations, should she go back on Lovenox pending improvement in her INR, a NOAC, or Lovenox permanently which she would probably refuse? Talking to the patient though, she is pretty much done with everything regarding the cancer treatment, chemotherapy, anticoagulation. She is fed up with the whole process. I talked to her for a while, she seemed better after that and she agreed to taking Lovenox for a few days pending improvement with her INR, and that is what the oncologist from the [facility] with whom I spoke, I missed his name, recommended. Departure - Departure Disposition: Home, Self Care Clinical Impression: Status post chemotherapy, Central venous catheter in place on admission Contact dermatitis Qualifiers: Contact dermatitis type: allergic Contact dermatitis trigger: adhesive Qualified Code(s): L23.1 - Allergic contact dermatitis due to adhesives Bleeding from PICC line Qualifiers: Encounter type: initial encounter Qualified Code(s): T82.838A - Hemorrhage due to vascular prosthetic devices, implants and grafts, initial encounter Arm DVT (deep venous thromboembolism), acute Qualifiers: Laterality: right Qualified Code(s): I82.621 - Acute embolism and thrombosis of deep veins of right upper extremity Instructions: ED DVT Prescriptions: Enoxaparin Sodium [Lovenox] 100 mg SQ BID #10 unit Comments: Take 10 mg of warfarin tonight, then go to 7.5 mg a day pending follow-up with Harika Lopez on Tuesday. You can stop the Lovenox when your INR is greater than 2. Return if worse.
[2018-12-22 16:29] LABS: BASOPHILS % (AUTO) 0.5 %; EOSINOPHILS % (AUTO) 0.4 %; HGB - HEMOGLOBIN 10.2 g/dL (12.0-16.0); LYMPHOCYTES # (AUTO) 1.4 10^3/uL (1.5-3.5); MEAN CORPUSCULAR HEMOGLOBIN 29.7 pg (27.0-31.0); MEAN CORPUSCULAR HGB CONC 31.7 g/dL (32.0-36.0); MEAN CORPUSCULAR VOLUME 93.9 fL (81.0-99.0); MEAN PLATELET VOLUME 10.3 fL (7.9-10.8); MONOCYTES # (AUTO) 0.7 10^3/uL (0.0-1.0); MONOCYTES % (AUTO) 12.9 %; NEUTROPHILS # (AUTO) 3.4 10^3/uL (1.5-6.6); NEUTROPHILS % (AUTO) 59.6 %; PLT - PLATELET COUNT 141 10^3/uL (130-450); RED BLOOD COUNT 3.43 10^6/uL (4.20-5.40); RED CELL DISTRIBUTION WIDTH 16.8 % (12.0-15.0); WHITE BLOOD COUNT 5.6 x10^3/uL (4.8-10.8)
[2018-12-22 16:34] LABS: INR 1.4 (0.8-1.2); PT - PROTHROMBIN TIME 16.3 secs (9.9-12.6)
[2018-12-22 16:38] LABS: CALCIUM 8.5 mg/dL (8.5-10.3); CREATININE 0.5 mg/dL (0.4-1.0)
[2018-12-22] MEDS ORDERED: TRIAMCINOLONE 0.1% OINT 15 GM TUBE TOP STA (16:38)
[2018-12-22] MEDS ORDERED: DOXEPIN 10 MG CAPSULE PO STA (16:55)
--- NOTE | 2018-12-22 18:52 | Ultrasound Report ---
Reason: RUE swelling Procedure Date: 12/22/2018 Accession Number: [id number] / [id number] Procedure: US - Duplex Ext Veins Right CPT Code: FULL RESULT: EXAM: BILATERAL UPPER EXTREMITY VENOUS ULTRASOUND EXAM DATE: 12/22/2018 06:28 PM. CLINICAL HISTORY: RUE swelling. COMPARISON: DUPLEX EXT VEINS RIGHT 10/25/2018 4:50 PM DUPLEX EXT VEINS RIGHT 10/25/2018 4:02 PM CHEST 1 VIEW 12/04/2018 10:59 AM. TECHNIQUE: Real-time sonographic vascular imaging was performed by the autos disassembler through the upper extremities utilizing both color-flow and Doppler spectral analysis. Multiple ict sales representative static images were saved for review. FINDINGS: Right: Internal Jugular Vein (IJV): Normal. Subclavian Vein (SCV): Partially occlusive intraluminal thrombus with limited flow is seen in mid and distal right subclavian, surrounding the PICC line. Distal subclavian vein demonstrates normal flow with no thrombus. Axillary Vein: Normal. Cephalic Vein (superficial vein): Normal. Basilic Vein (superficial vein): Unable to show Doppler flow in basilic vein, a partially occlusive thrombus surrounding the PICC line is not excluded. Brachial Vein: Normal. IMPRESSION: Partially occlusive intraluminal thrombus with limited flow is seen in mid and distal right subclavian, surrounding the PICC line. Distal subclavian vein demonstrates normal flow with no thrombus. Unable to show Doppler flow in basilic vein, a partially occlusive thrombus surrounding the PICC line is not excluded. RADIA
[2018-12-22] MEDS ORDERED: ENOXAPARIN 100 MG/ML SYRINGE SUBQ STA (19:50)
--- NOTE | 2018-12-22 19:53 | Ultrasound Report ---
Reason: BLE swelling Procedure Date: 12/22/2018 Accession Number: [id number] / [id number] Procedure: US - Duplex Ext Veins Bilateral CPT Code: FULL RESULT: EXAM: BILATERAL LOWER EXTREMITY VENOUS ULTRASOUND EXAM DATE: 12/22/2018 07:20 PM. CLINICAL HISTORY: BLE swelling. COMPARISON: None. TECHNIQUE: Real-time sonographic vascular imaging was performed by the repairer screen crusher through the lower extremities utilizing both color-flow and Doppler spectral analysis. Multiple software sales representative static images were saved for review. FINDINGS: Right: Common Femoral Vein (CFV): Normal. CFV-GSV Junction: Normal. Profunda Femoral Vein (PFV): Normal. Femoral Vein (FV) Prox: Normal. Femoral Vein (FV) Mid: Normal. Femoral Vein (FV) Dist: Normal. Popliteal Vein: Normal. Posterior Tibial Veins: Normal. Peroneal Veins: Normal. Left: Common Femoral Vein (CFV): Normal. CFV-GSV Junction: Normal. Profunda Femoral Vein (PFV): Normal. Femoral Vein (FV) Prox: Normal. Femoral Vein (FV) Mid: Normal. Femoral Vein (FV) Dist: Normal. Popliteal Vein: Normal. Posterior Tibial Veins: Normal. Peroneal Veins: Normal. Other: Bilateral clear fluid containing Medina's cyst noted. On the right measured 4.3 x 0.8 x 3 cm and on the left measures 2.3 x 1.3 x 2.1 cm. IMPRESSION: No evidence for deep venous thrombosis bilaterally. RADIA
[2018-12-22 20:06] VITALS: BP 154/100
== END 2018-12-22 20:09 | disposition home or self-care (01) ==
LOC: ED 15:34
DX: T82.868A Thrombosis due to vascular prosthetic devices, implants and grafts, initial encounter (principal); T82.838A Hemorrhage due to vascular prosthetic devices, implants and grafts, initial encounter; Y84.8 Other medical procedures as the cause of abnormal reaction of the patient, or of later complication, without mention of misadventure at the time of the procedure; I82.B11 Acute embolism and thrombosis of right subclavian vein; L23.1 Allergic contact dermatitis due to adhesives; R79.1 Abnormal coagulation profile; I10 Essential (primary) hypertension; E11.9 Type 2 diabetes mellitus without complications; Z79.899 Other long term (current) drug therapy; Z79.84 Long term (current) use of oral hypoglycemic drugs; Z79.01 Long term (current) use of anticoagulants
CPT/HCPCS: 36415; 80048; 85025; 85610; 93970; 93971; 96372; 99283; 99284; A9270; J1650

== ENCOUNTER 2018-12-25 11:14 | Outpatient (CLI) | payer MEDICAID | END 2018-12-25 11:15 | disposition home or self-care (01) | LOC: LAB 11:14 | PROVIDERS: ATTEND Family Medicine | DX: D68.59 Other primary thrombophilia (principal) | CPT/HCPCS: 85610 ==

== ENCOUNTER 2018-12-27 08:00 | Outpatient (CLI) | payer MEDICAID | END 2018-12-27 23:59 | disposition home or self-care (01) | LOC: LAB.N 08:00 | PROVIDERS: ATTEND Family Medicine | DX: D68.59 Other primary thrombophilia (principal) | CPT/HCPCS: 85610 ==

== ENCOUNTER 2019-01-02 08:59 | Outpatient (CLI) | payer MEDICAID | END 2019-01-02 09:00 | disposition home or self-care (01) | LOC: LAB 08:59 | PROVIDERS: ATTEND Family Medicine | DX: D68.59 Other primary thrombophilia (principal) | CPT/HCPCS: 85610 ==

== ENCOUNTER 2019-01-05 10:02 | Outpatient (CLI) | payer MEDICAID | END 2019-01-05 23:59 | disposition home or self-care (01) | LOC: LAB.N 10:02 | PROVIDERS: ATTEND Family Medicine | DX: D68.59 Other primary thrombophilia (principal) | CPT/HCPCS: 85610 ==

== ENCOUNTER 2019-01-08 10:20 | Outpatient (CLI) | payer MEDICAID | END 2019-01-08 10:21 | disposition home or self-care (01) | LOC: DI 10:20 | PROVIDERS: ATTEND Internal Medicine Hematology & Oncology | DX: C50.912 Malignant neoplasm of unspecified site of left female breast (principal); I51.7 Cardiomegaly | CPT/HCPCS: 93306 ==

== ENCOUNTER 2019-01-09 12:40 | Outpatient (CLI) | payer MEDICAID | END 2019-01-09 12:41 | disposition home or self-care (01) | LOC: LAB 12:40 | PROVIDERS: ATTEND Family Medicine | DX: D68.59 Other primary thrombophilia (principal) | CPT/HCPCS: 85610 ==

== ENCOUNTER 2019-01-22 08:00 | Outpatient (CLI) | payer MEDICAID ==
--- NOTE | 2019-01-22 13:00 | Ultrasound Report ---
Reason: ACUTE EMBOLISM AND THROMBOSIS OF DEEP VEINS OF R U Procedure Date: 01/22/2019 Accession Number: [id number] / [id number] Procedure: US - Duplex Ext Veins Right CPT Code: FULL RESULT: EXAM: RIGHT UPPER EXTREMITY VENOUS ULTRASOUND EXAM DATE: 01/22/2019 08:03 AM. CLINICAL HISTORY: Acute embolism and thrombosis of deep veins of right upper extremity. COMPARISON: 01/22/2019 8:50 AM DUPLEX EXT VEINS RIGHT 12/22/2018 4:59 PM. TECHNIQUE: Real-time sonographic vascular imaging was performed by the human resource management instructor through the upper extremity utilizing both color-flow and Doppler spectral analysis. Multiple registration representative static images were saved for review. FINDINGS: Internal Jugular Vein (IJV): Normal. Subclavian Vein (SCV): Thrombosed, occlusive. Axillary Vein : Thrombosed, occlusive and near occlusive. Cephalic Vein (superficial vein): Normal. Basilic Vein (superficial vein): Thrombosed, occlusive and near occlusive. Brachial Vein: Normal. Contralateral Side: Subclavian Vein: Normal. Other: Thrombosed vessels contain a PICC with thrombus circumferentially surrounding the PICC. IMPRESSION: Right arm PICC with occlusive and near occlusive thrombus throughout the length of the interrogated catheter reaching from the basilic vein entry site to the subclavian vein as above. RADIA The call report notification system was initiated by Dr. Chris Ibanez at 12:58 PM on 01/22/2019. ADDENDUM: 01/22/19 13:10 The above call report findings were discussed with the clinical nurse on behalf of Filemon Lopez by Dr. Chris Ibanez at 01:10 PM on 01/22/2019.
== END 2019-01-22 08:01 | disposition home or self-care (01) ==
LOC: DI 08:00
PROVIDERS: ATTEND Internal Medicine Hematology & Oncology
DX: I82.621 Acute embolism and thrombosis of deep veins of right upper extremity (principal)

== ENCOUNTER 2019-01-23 13:37 | Outpatient (CLI) | payer MEDICAID | END 2019-01-23 13:38 | disposition home or self-care (01) | LOC: LAB 13:37 | PROVIDERS: ATTEND Family Medicine | DX: D68.59 Other primary thrombophilia (principal) | CPT/HCPCS: 85610 ==

== ENCOUNTER 2019-01-29 11:48 | Emergency (ER) | payer MEDICAID ==
--- NOTE | 2019-01-29 12:43 | ED Physician Documentation ---
PD HPI DYSPNEA - Stated complaint Stated Complaint: SOA - Chief complaint Chief Complaint: Resp - History obtained from History obtained from: Patient - History of Present Illness Timing - onset: Other (This is a 63-year-old woman with left breast infiltrating ductal carcinoma. Last week she was put on anastrozole. About a day later she developed a posterior headache with neck stiffness. About 2 days ago she developed significant dyspnea on exertion. She has a PICC line in the right upper extremity that is nonfunctional. She has an extensive DVT on it. She is on warfarin for same. Her last INR was 6 days ago at 2.0.) Review of Systems Constitutional: reports: Fatigue. denies: Fever, Chills Cardiac: denies: Chest pain / pressure, Palpitations, Pedal edema, Calf pain Respiratory: reports: Dyspnea, Cough PD PAST MEDICAL HISTORY - Past Medical History Cardiovascular: Hypertension, High cholesterol, Peripheral Vascular Disease, Murmur Respiratory: Sleep apnea, CPAP use Neuro: Headaches, Peripheral neuropathy, Fainting Endocrine/Autoimmune: Type 2 diabetes GI: GERD, Cholelithiasis GYM ATTENDANT: Miscarriage(s), Breast cancer : None HEENT: Chronic vision loss, Chronic sinusitis Psych: Anxiety Musculoskeletal: Osteoarthritis Derm: None, Other - Past Surgical History Past Surgical History: Yes Ortho: Spine surgery /GYM ATTENDANT: Tubal ligation, Other - Present Medications Home Medications: Ambulatory Orders Medication Instructions Recorded Confirmed Gabapentin 300 mg PO QPM 06/27/18 01/23/19 Metoprolol Tartrate 50 mg PO BID 06/27/18 01/23/19 Sertraline HCl 100 mg PO DAILY 06/27/18 01/23/19 Simvastatin 20 mg PO QPM 06/27/18 01/23/19 metFORMIN [Glucophage] 500 mg PO BIDWM 06/27/18 01/23/19 Diphenoxylate/Atropine [Lomotil] 1 each PO QID PRN #15 tablet MDD 8 08/03/18 01/23/19 tabs Loperamide [Imodium] 2 mg PO QID PRN #15 capsule 08/03/18 01/23/19 clonazePAM [KlonoPIN] 1 mg PO TID PRN #15 tablet 08/03/18 01/23/19 traZODone [Desyrel] 25 mg PO QPM #3 tablet 08/03/18 01/23/19 Acetaminophen 500 mg PO PRN PRN 09/12/18 01/23/19 Fluconazole 200 mg PO DAILY 09/12/18 01/23/19 Lidocaine/Prilocaine 30 gm TOP PRN PRN 09/12/18 01/23/19 [Lidocaine-Prilocaine Cream] Prochlorperazine [Compazine] 5 mg PO PRN PRN 09/12/18 01/23/19 Senna [Senokot] 8.6 mg PO PRN PRN 09/12/18 01/23/19 dexAMETHasone [Dexamethasone] 8 mg PO BID PRN 09/12/18 01/23/19 oxyCODONE [Roxicodone] 5 mg PO PRN PRN 09/12/18 01/23/19 Warfarin [Coumadin] 7.5 mg PO 1400 12/05/18 01/23/19 Scopolamine 1 each TD Q72H PRN 12/12/18 01/23/19 Anastrozole 1 tab PO DAILY 01/23/19 01/23/19 Azithromycin [Zithromax] 1 tab PO DAILY #6 tablet 01/29/19 - Allergies Allergies/Adverse Reactions: Allergies Allergy/AdvReac Type Severity Reaction Status Date / Time hydroxyzine Allergy Itching Verified 01/23/19 14:06 lorazepam Allergy Emesis Verified 01/23/19 14:06 meclizine Allergy Emesis Verified 01/23/19 14:06 codeine AdvReac Nausea Verified 01/23/19 14:06 silver AdvReac Rash Verified 01/23/19 14:06 [From [employer]] - Social History Does the pt smoke?: No Smoking Status: Never smoker Does the pt drink ETOH?: No Does the pt have substance abuse?: No - Immunizations Immunizations are current?: Yes - POLST Patient has POLST: No POLST Status: Full Code PD ED PE NORMAL - Vitals Vital signs reviewed: Yes - General General: Alert and oriented X 3, No acute distress - HEENT HEENT: PERRL, EOMI - Neck Neck: Supple, no meningeal sign, No bony TTP - Cardiac Cardiac: RRR, No murmur - Respiratory Respiratory: No respiratory distress, Clear bilaterally - Abdomen Abdomen: Non tender - Derm Derm: No rash - Neuro Neuro: Alert and oriented X 3, Normal speech Results - Vitals Vitals: Vital Signs - 24 hr 01/29/19 01/29/19 01/29/19 11:54 12:16 13:25 Temperature 37.1 C Heart Rate 82 76 74 Respiratory 18 18 13 Rate Blood Pressure 184/96 H 161/88 H 143/75 H O2 Saturation 96 95 94 01/29/19 14:00 Temperature 37.0 C Heart Rate 63 Respiratory 21 Rate Blood Pressure 167/54 H O2 Saturation 93 Oxygen O2 Source Room air - EKG (time done) 1227 Rate: Rate (enter#) (75) Rhythm: NSR [place]: Normal Intervals: Normal CT QRS: Normal Ischemia: Q waves (inferior/lateral) Computer interpretation: Agree with computer - Labs Labs: Laboratory Tests 01/29/19 01/29/19 01/29/19 13:02 13:02 13:02 WBC 6.0 RBC 4.20 Hgb 12.3 Hct 37.7 MCV 89.8 MCH 29.3 MCHC 32.6 RDW 16.4 H Plt Count 119 L MPV 10.6 Neut # (Auto) 2.6 Lymph # (Auto) 1.6 [place] # (Auto) 1.7 H Eos # (Auto) 0.0 Baso # (Auto) 0.0 Absolute Nucleated RBC 0.00 Band Neuts % (Manual) Not Reportable Abnorm Lymph % (Manual) Not Reportable Nucleated RBC % 0.0 Neutrophils # (Manual) Not Reportable Lymphocytes # (Manual) Not Reportable Monocytes # (Manual) Not Reportable Eosinophils # (Manual) Not Reportable Basophils # (Manual) Not Reportable Differential Comment MANUAL=AUTO DIFF PT 26.1 H INR 2.4 H Sodium 136 Potassium 3.5 Chloride 95 L Carbon Dioxide 26 Anion Gap 15.0 H BUN 29 H Creatinine 1.0 Estimated GFR (MDRD) 56 L Glucose 116 H Calcium 9.3 Total Bilirubin 1.3 H AST 54 H ALT 29 Alkaline Phosphatase 95 B-Natriuretic Peptide Total Protein 7.8 Albumin 3.5 Globulin 4.3 H Albumin/Globulin Ratio 0.8 L Lipase 48 01/29/19 13:02 WBC RBC Hgb Hct MCV MCH MCHC RDW Plt Count MPV Neut # (Auto) Lymph # (Auto) [place] # (Auto) Eos # (Auto) Baso # (Auto) Absolute Nucleated RBC Band Neuts % (Manual) Abnorm Lymph % (Manual) Nucleated RBC % Neutrophils # (Manual) Lymphocytes # (Manual) Monocytes # (Manual) Eosinophils # (Manual) Basophils # (Manual) Differential Comment PT INR Sodium Potassium Chloride Carbon Dioxide Anion Gap BUN Creatinine Estimated GFR (MDRD) Glucose Calcium Total Bilirubin AST ALT Alkaline Phosphatase B-Natriuretic Peptide 12 Total Protein Albumin Globulin Albumin/Globulin Ratio Lipase - Rads (name of study) CT Chest Angio Radiology: EMP read contemporaneously, See rad report Procedures - General procedure General procedure: At the patient's request all the adhesive was removed from her right arm PICC line. An area just below where it exited the skin was prepped with iodine and draped and locally infiltrated with buffered lidocaine. A single 4-0 nylon stitch was put through the skin and then wrapped around the PICC line to keep it from moving and then a dressing that she can use was placed over this. PD MEDICAL DECISION MAKING - ED course ED course: 63-year-old woman sent from the clinic for concern for PE. Is complicated by the fact that we cannot put an IV in her left upper extremity because of the previous mastectomy there. She has a PICC line in the right upper extremity that has clot on it and is nonfunctional. 1 problem the patient has too is that the PICC line is bothering her. I guess it cannot be removed because there is an extensive DVT on it. I talked with the garde manager to see if there was a way to shorten its, he said the really was not. She is severely allergic to tapes and adhesives so what we agreed on is that we would remove all the adhesive, then I would place a stitch around it through the skin to hold it in place since it cannot be removed. I spoke with the oncology PA over at the [facility] clinic. She did not think the anastrozole was likely causative for her dyspnea on exertion but agreed with stopping it until follow-up. Results of the CT were discussed with patient. We will start some azithromycin for the potential bronchitis. Specific other issues needing follow-up were all discussed and she was given a copy of the report. Departure - Departure Disposition: 01 Home, Self Care Clinical Impression: Bronchitis, Breast cancer, Anticoagulated, Renal artery aneurysm, Seroma after procedure, Dyspnea Condition: Stable Record reviewed to determine appropriate education?: Yes Prescriptions: Azithromycin [Zithromax] 1 tab PO DAILY #6 tablet Comments: Often times when you start antibiotics while you are taking anticoagulants such as Coumadin or warfarin, your INR will go up. You need to have your INR checked frequently while on the antibiotics. Have it checked in 3 days, again in 6 days, and at least weekly while you are on antibiotics. Dose adjustments of your anticoagulants may be necessary. As discussed other findings on the CAT scan besides bronchitis include a postoperative seroma, discuss this with your breast surgeon. Also a right renal artery aneurysm. He will need a vascular surgeon consultation for this. You can stop the anastrozole until you see Dr. Lopez next time. Return for new worsening symptoms.
[2019-01-29] MEDS ORDERED: BUFFERED LIDOCAINE 10 ML SYRINGE SUBQ STA (12:45)
[2019-01-29] MEDS ORDERED: IOVERSOL 320 100 ML VIAL IVP ONE ×2 (13:00→13:57)
[2019-01-29 13:17] LABS: BASOPHILS % (AUTO) 0.7 %; EOSINOPHILS % (AUTO) 0.7 %; HGB - HEMOGLOBIN 12.3 g/dL (12.0-16.0); LYMPHOCYTES # (AUTO) 1.6 10^3/uL (1.5-3.5); LYMPHOCYTES % (AUTO) 26.5 %; MEAN CORPUSCULAR HEMOGLOBIN 29.3 pg (27.0-31.0); MEAN CORPUSCULAR HGB CONC 32.6 g/dL (32.0-36.0); MEAN CORPUSCULAR VOLUME 89.8 fL (81.0-99.0); MEAN PLATELET VOLUME 10.6 fL (7.9-10.8); MONOCYTES # (AUTO) 1.7 10^3/uL (0.0-1.0); NEUTROPHILS # (AUTO) 2.6 10^3/uL (1.5-6.6); NEUTROPHILS % (AUTO) 43.6 %; PLT - PLATELET COUNT 119 10^3/uL (130-450); RED CELL DISTRIBUTION WIDTH 16.4 % (12.0-15.0)
[2019-01-29 13:22] LABS: INR 2.4 (0.8-1.2); PT - PROTHROMBIN TIME 26.1 secs (9.9-12.6)
[2019-01-29 13:28] LABS: ALBUMIN 3.5 g/dL (3.2-5.5); ALBUMIN/GLOBULIN RATIO 0.8 (1.0-2.2); BILIRUBIN,TOTAL 1.3 mg/dL (0.2-1.0); CALCIUM 9.3 mg/dL (8.5-10.3); TOTAL PROTEIN 7.8 g/dL (6.7-8.2)
[2019-01-29 14:08] LABS: DIFFERENTIAL COMMENT MANUAL=AUTO DIFF
--- NOTE | 2019-01-29 14:52 | CT Report ---
Reason: PE protocol, dyspnea Procedure Date: 01/29/2019 Accession Number: [id number] / [id number] Procedure: CT - ANGIO CHEST W/WO CPT Code: FULL RESULT: EXAM: CT ANGIOGRAM CHEST EXAM DATE: 01/29/2019 01:54 PM. CLINICAL HISTORY: Dyspnea. Evaluate for pulmonary embolism. COMPARISON: CHEST W/O 08/31/2018 12:01 AM. TECHNIQUE: Routine helical imaging was performed through the chest in the pulmonary arterial phase. IV Contrast: 80 cc Optiray 320. Reconstructions: Coronal 3-D MIP reconstructions.Sagittal and coronal. In accordance with CT protocol optimization, one or more of the following dose reduction techniques were utilized for this exam: automated exposure control, adjustment of mA and/or KV based on patient size, or use of iterative reconstructive technique. FINDINGS: Diagnostic quality: Suboptimal secondary to bolus timing and motion artifact. The densest contrast is in the SVC and several chest wall collaterals. Pulmonary embolism: No pulmonary embolism to the segmental level. Right heart strain: None. Pulmonary arteries: Normal in caliber. Heart: Unremarkable Aorta: Normal in caliber with minimal atherosclerosis. Central airways: Unremarkable. Lung parenchyma: Question scattered mosaic attenuation most pronounced in the bilateral upper lobes versus motion artifact. Unchanged 2 mm pulmonary nodule within the right middle lobe. Again scarring in the left lingula with new left lower lobe scarring/atelectasis. Pleural effusion: None. Interval resolution of previously seen left hemothorax. Pneumothorax: None Esophagus: Grossly unremarkable. Adenopathy: None Imaged abdomen: Gallstones in the gallbladder. Again partially imaged 1 x 1.4 cm right renal artery aneurysm. Sidewalls: Interval bilateral mastectomy and bilateral axial lymph node dissection. New 5 x 1.8 cm focal fluid collection within the left axilla may represent postop seroma or resolving hematoma. Bones: No suspicious osseous lesions. IMPRESSION: 1. Suboptimal exam secondary to bolus timing and motion artifact. 2. No pulmonary embolism to the segmental level. 3. Question scattered mosaic attenuation most pronounced in the bilateral upper lobes versus motion artifact. Findings can be seen in infectious or inflammatory bronchiolitis/small airways disease. 4. Again partially imaged 1 x 1.4 cm right renal artery aneurysm. Recommend interventional radiology or cardiology consultation and surveillance. 5. Interval bilateral mastectomy. New 5 x 1.8 cm focal fluid collection within the left axilla may represent postop seroma or resolving hematoma. Consider ultrasound for further evaluation. RADIA
[2019-01-29 15:42] VITALS: BP 164/68
== END 2019-01-29 15:45 | disposition home or self-care (01) ==
LOC: ED 11:48
DX: J40 Bronchitis, not specified as acute or chronic (principal); I72.2 Aneurysm of renal artery; L76.34 Postprocedural seroma of skin and subcutaneous tissue following other procedure; Y83.8 Other surgical procedures as the cause of abnormal reaction of the patient, or of later complication, without mention of misadventure at the time of the procedure; Z85.3 Personal history of malignant neoplasm of breast; Z90.13 Acquired absence of bilateral breasts and nipples; T82.868A Thrombosis due to vascular prosthetic devices, implants and grafts, initial encounter; Y84.8 Other medical procedures as the cause of abnormal reaction of the patient, or of later complication, without mention of misadventure at the time of the procedure; Z79.01 Long term (current) use of anticoagulants; K80.20 Calculus of gallbladder without cholecystitis without obstruction; I10 Essential (primary) hypertension; E11.42 Type 2 diabetes mellitus with diabetic polyneuropathy; E11.51 Type 2 diabetes mellitus with diabetic peripheral angiopathy without gangrene; Z79.84 Long term (current) use of oral hypoglycemic drugs; Z91.048 Other nonmedicinal substance allergy status
CPT/HCPCS: 36415; 71275; 80053; 83690; 83880; 85025; 85610; 93005; 99284; Q9967

== ENCOUNTER 2019-02-02 11:58 | Outpatient (CLI) | payer MEDICAID | END 2019-02-02 23:59 | disposition home or self-care (01) | LOC: LAB.N 11:58 | PROVIDERS: ATTEND Family Medicine | DX: D68.59 Other primary thrombophilia (principal) | CPT/HCPCS: 85610 ==

== ENCOUNTER 2019-02-20 09:09 | Outpatient (CLI) | payer MEDICAID ==
[2019-02-20] MEDS ORDERED: IOVERSOL 320 100 ML VIAL IVP ONE ×2 (09:25→15:25)
--- NOTE | 2019-02-20 14:28 | CT Report ---
Reason: RENAL ARTERY ANEURYSM, RUE DVT. Procedure Date: 02/20/2019 Accession Number: [id number] / [id number] Procedure: CT - ANGIO ABDOMEN/PELVIS W CPT Code: Final Report FULL RESULT: EXAM: CT ANGIOGRAM ABDOMEN AND PELVIS WITH CONTRAST EXAM DATE: 02/20/2019 09:53 AM. CLINICAL HISTORY: Renal artery aneurysm, right upper extremity deep vein thrombosis. COMPARISONS: ABDOMEN/PELVIS WITH IV CONTRAST 07/22/2018. TECHNIQUE: Routine helical CT angiogram imaging was performed through the abdomen and pelvis in the arterial phase. IV contrast: Optiray-320, 100 mL. Enteric contrast: No. Reconstructions: Coronal, sagittal, and 3D MIP reconstructions. In accordance with CT protocol optimization, one or more of the following dose reduction techniques were utilized for this exam: automated exposure control, adjustment of mA and/or KV based on patient size, or use of iterative reconstructive technique. FINDINGS: Vasculature: There is a stable 12 mm aneurysm of the right mid renal artery at the bifurcation of the lower pole segmental artery. No additional aneurysm, dissection, or significant atherosclerotic disease of the abdominal aorta and iliac arteries. The visualized mesenteric and solid organ vascular structures are also within normal limits. Lung Bases: Normal. Abdominal Solid Organs: The liver, spleen, pancreas, adrenal glands, and right kidney are normal in size and demonstrate no masses or abnormal enhancement. Stable cholelithiasis within the gallbladder but no wall thickening or pericholecystic fluid. 1.5 cm water-density cyst of the anterior midpole left kidney is unchanged. Peritoneal Cavity: Normal. No free fluid, free air, or acute inflammatory process. Colonic diverticulosis without CT evidence of diverticulitis. Pelvic Organs: Normal. The bladder and visualized pelvic organs are within normal limits. Bones: Stable degenerative disk and facet changes at L5-S1. Stable bilateral hip arthritis severe on the right and at least moderate on the left. Other: None. IMPRESSION: 1. Stable 12 mm right renal artery aneurysm. 2. Stable cholelithiasis without CT evidence of cholecystitis. RADIA
== END 2019-02-20 09:10 | disposition home or self-care (01) ==
LOC: DI 09:09
PROVIDERS: ATTEND Family Medicine
DX: I72.2 Aneurysm of renal artery (principal); K80.20 Calculus of gallbladder without cholecystitis without obstruction
CPT/HCPCS: 74174; Q9967

== ENCOUNTER 2019-03-06 22:09 | Outpatient (CLI) | payer MEDICAID ==
--- NOTE | 2019-03-07 07:05 | Ultrasound Report ---
Reason: DVT Procedure Date: 03/06/2019 Accession Number: [id number] / [id number] Procedure: US - Duplex Ext Veins Right CPT Code: Final Report FULL RESULT: EXAM: RIGHT UPPER EXTREMITY VENOUS ULTRASOUND EXAM DATE: 03/06/2019 11:59 PM CLINICAL HISTORY: Known DVT. Evaluate interval change. COMPARISON: DUPLEX EXT VEINS RIGHT 01/22/2019 8:03 AM. TECHNIQUE: Real-time sonographic vascular imaging was performed by the cooler tender through the upper extremity utilizing both color-flow and Doppler spectral analysis. Multiple customer care representative static images were saved for review. FINDINGS: Internal Jugular Vein (IJV): Normal. Subclavian Vein (SCV): Normal. Axillary Vein : Nonocclusive thrombus. Cephalic Vein (superficial vein): Normal. Basilic Vein (superficial vein): Combination of occlusive and near occlusive thrombus. Brachial Vein: Normal. Contralateral Left Subclavian Vein: Normal. Other: Previously noted PICC has been removed. IMPRESSION: 1. Nonocclusive right axillary and near occlusive basilic vein thrombus. 2. Right subclavian vein is now patent. RADIA
== END 2019-03-06 22:10 | disposition home or self-care (01) ==
LOC: DI 22:09
PROVIDERS: ATTEND Internal Medicine Hematology & Oncology
DX: I82.611 Acute embolism and thrombosis of superficial veins of right upper extremity (principal); I82.A11 Acute embolism and thrombosis of right axillary vein

== ENCOUNTER 2019-03-27 14:01 | Outpatient (CLI) | payer MEDICAID | END 2019-03-27 14:02 | disposition home or self-care (01) | LOC: LAB 14:01 | PROVIDERS: ATTEND Family Medicine | DX: D68.59 Other primary thrombophilia (principal) | CPT/HCPCS: 85610 ==

== ENCOUNTER 2019-04-16 11:11 | Outpatient (CLI) | payer MEDICAID | END 2019-04-16 11:12 | disposition home or self-care (01) | LOC: DI 11:11 | PROVIDERS: ATTEND Physician Assistant | DX: C50.912 Malignant neoplasm of unspecified site of left female breast (principal); Z92.21 Personal history of antineoplastic chemotherapy | CPT/HCPCS: 93306 ==

== ENCOUNTER 2019-04-17 08:00 | Outpatient (CLI) | payer MEDICAID | END 2019-04-17 23:59 | disposition home or self-care (01) | LOC: LAB.R 08:00 | PROVIDERS: ATTEND Family Medicine | DX: D68.59 Other primary thrombophilia (principal) | CPT/HCPCS: 85610 ==

== ENCOUNTER 2019-05-08 08:00 | Outpatient (CLI) | payer MEDICAID | END 2019-05-08 23:59 | disposition home or self-care (01) | LOC: LAB.R 08:00 | PROVIDERS: ATTEND Family Medicine | DX: D68.59 Other primary thrombophilia (principal) | CPT/HCPCS: 85610 ==

== ENCOUNTER 2019-05-10 11:15 | Outpatient (CLI) | payer MEDICAID ==
--- NOTE | 2019-05-10 20:56 | CONSULTATION NOTE ---
Palliative Care Consultation - Referral Referring Provider: Alee Valentino PA-C Time of Visit: [id number] Referral setting: Home Referral Reason: Depression/Left Breast Cancer/Acute on Chronic Hip Pain - Information Sources Records reviewed: Previous records reviewed History/Review of Systems obtained from: Patient Exam limitations: No limitations - History of Present Illness Brief History of Present Illness: This is a 63-year-old woman who noticed a breast mass in April 2018, and a biopsy in June 2018 showed her to have infiltrating ductal carcinoma that is ER positive MS positive and HER-2 positive. She had been initiated on TCH P, and had 2 acute hospitalizations, with poor toleration of treatment including severe mucositis, nausea, vomiting and diarrhea. She then had bilateral mastectomies with a lymph axillary lymph node dissection, and recently finished left chest wall radiation with severe radiation siddiqui. She has had difficulty finding an oral agent that she has been able to tolerate, and is receiving ongoing adjuvant Kadcyla every 3 weeks. She is expecting to have imaging regarding her lymph nodes, and her understanding is this will help guide treatment in the future. Patient's other significant issue, is she developed a DVT in her right upper extremity, she recently had a vascular consult. She had originally had a port placed early on, but it had complications and this is when she developed her first right upper extremity DVT in July 2018. 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 She has been to several orthopedist, who have not been willing to consider a hip replacement given her history of DVT in her right upper extremity, as well as her cancer diagnosis. She finally did meet with Dr. Boykin, who is agreed to do the surgery on 316, possibly sooner if available. They will do a lateral approach, she does understand the concern for high risk. But she is incapacitated as far as being able to walk, her pain is severely [id number], and it has impacted her ability to be independent. Her other symptom which has been fluctuating, is actually been her hypertension. She has had medication adjustments by her PCP, but most recently was symptomatic with hypotension. Patient's schedule fluctuates, between her fatigue, pain, and multiple appointments she has no regular Wake/sleep cycles, has done poorly as far as able to eat, has peripheral neuropathy, has known diabetes type 2, chronic back pain with a history of 2 laminectomies and spinal stenosis surgery in 2017 complicated by a spinal dural sac rupture.She presents is fairly overwhelmed by her most recent trials and tribulations with her health, as well as persistent depressive symptoms. Medical/Surgical History - Past Medical History Cardiovascular: reports: Hypertension, High cholesterol, Peripheral Vascular Disease, Murmur Respiratory: reports: Sleep apnea, CPAP use Neuro: Headaches, Peripheral neuropathy, Fainting Endocrine/Autoimmune: reports: Type 2 diabetes GI: reports: GERD, Cholelithiasis JEWISH HISTORY PROFESSOR: reports: Miscarriage(s), Breast cancer : reports: None HEENT: reports: Chronic vision loss, Chronic sinusitis Psych: reports: Anxiety Musculoskeletal: reports: Osteoarthritis Derm: reports: None, Other (radiation therapy burn to chest) MRSA Hx?: No - Past Surgical History Ortho: reports: Spine surgery /JEWISH HISTORY PROFESSOR: reports: Tubal ligation, Other (Bilateral masectomy) - Substance History Use: Uses substance without health or social issues: NONE Social History - Living Situation Living arrangement: At home Living Situation: Alone Support System: 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 She is quite creative and history of being creative artistic. She does have [place] P[place], that comes 3 times a week to help with household and personal support. She does have 2 children a daughter [place] 29 [place] 27 [place] her son is quite helpful, her daughter has underlying anxiety issues. Family History - Family History Family History: Mother: ( at 86 of heart attacck), [place] ( at age 44), Father: , Cancer (brain tumor; sister of lung cancer), [place], Sister: , Cancer, Other family: Alive and Well (has 7 siblings in [place]) Medications/Allergies - Medications Home Medications: Ambulatory Orders Medication Instructions Recorded Confirmed Gabapentin 300 mg PO TID 06/27/18 05/10/19 Sertraline HCl 150 mg PO DAILY 06/27/18 05/10/19 Simvastatin 20 mg PO QPM 06/27/18 05/10/19 metFORMIN [Glucophage] 500 mg PO BIDWM 06/27/18 05/10/19 Lidocaine/Prilocaine 30 gm TOP PRN PRN 09/12/18 05/10/19 [Lidocaine-Prilocaine Cream] Warfarin [Coumadin] 7.5 mg PO 1400 12/05/18 05/10/19 Oxycodone HCl/Acetaminophen 1 tab PO Q4HR PRN MDD 6 tabs 02/16/19 05/10/19 [Percocet 5-325 mg Tablet] Letrozole 2.5 mg PO DAILY 05/08/19 05/10/19 Ascorbic Acid [Vitamin C] 500 mg PO DAILY 05/10/19 05/10/19 Calcium Carbonate/Vitamin D3 2 tab PO DAILY 05/10/19 05/10/19 [Calcium 500 mg-Vit D3 600 Unit] Cholecalciferol (Vitamin D3) 2,000 unit PO DAILY 05/10/19 05/10/19 [Vitamin D3] Metoprolol Tartrate 75 mg PO DAILY 05/10/19 05/10/19 Multivitamin [Multivitamins] 1 tab PO DAILY 05/10/19 05/10/19 Valsartan 80 mg PO DAILY 05/10/19 05/10/19 Vitamin B Complex/Folic Acid 1 tab PO DAILY 05/10/19 05/10/19 [Vitamin B Complex Tablet] - Allergies Allergies/Adverse Reactions: Allergies Allergy/AdvReac Type Severity Reaction Status Date / Time hydroxyzine Allergy Itching Verified 05/08/19 10:31 lorazepam Allergy Emesis Verified 05/08/19 10:31 meclizine Allergy Emesis Verified 05/08/19 10:31 codeine AdvReac Nausea Verified 05/08/19 10:31 silver AdvReac Rash Verified 05/08/19 10:31 [From Tegaderm AG Mesh] Review of Systems - Constitutional Constitutional: reports: Fatigue, Chills, Poor appetite, Night sweats - Eyes Eyes: reports: Corrective lenses - Ears, Nose & Throat Ears, Nose & Throat: reports: Nosebleeds, Bleeding gums, Dry mouth - Cardiovascular Cardiovascular: reports: Decr. exercise tolerance, Other - Respiratory Respiratory: reports: SOB at rest, SOB with exertion, Other (CPAP) - Gastrointestinal Gastrointestinal: reports: Constipation, Poor appetite, Early satiety, Other (taste changes) - Musculoskeletal Musculoskeletal: reports: Back pain, Muscle aches, Stiffness, Limited range of motion, Muscle weakness, Joint pain (right hip bone on bone; bilateral knee pain;), Assistive devices (uses walker with arm rests) - Integumentary Integumentary: reports: Dryness, Other (still healing chest wall radiation burn) - Neurological Neurological: reports: General weakness, Focal weakness, Dizziness, Numbness, Memory problems (mild), Abnormal gait (diff. weight bearing on right) - Psychiatric Psychiatric: reports: Depression, Anxiety - Endocrine Endocrine: reports: Diabetes type 2 - Hematologic/Lymphatic Hematologic/Lymphatic: reports: Anemia (11.5), Bruising, Bleeding tendencies (on coumadin) - All Other Systems All Other Systems: reports: Reviewed and negative Physical Exam - Vital Signs Temperature: 97.6 C Pulse Rate: 72 Respiratory Rate: 18 O2 Saturation: 98 Blood Pressure: 118/72 - Physical Exam General Appearance: positive: Mild distress Eyes Bilateral: positive: Normal inspection ENT: positive: No signs of dehydration Neck: positive: No JVD, Trachea midline Cardiovascular: positive: Regular rate & rhythm Respiratory: positive: No respiratory distress, Diminished in bases. negative: Wheezes, Rales, Rhonchi Abdomen: positive: Soft, Nml bowel sounds Skin: positive: Pallor, Wound (still large area of moist yellow eschar across chest wall; filling in; skin thinned and pink surrounding; serous drainage on lissa shirt) Extremities: positive: Pedal edema Neurologic/Psychiatric: positive: Oriented x3, Weakness (limited by pain), Depressed mood/affect, Flat affect Palliative Care - POLST Patient has POLST: No POLST Status: Full Code Pain: Pain worsening, Severity (8/10 right hip; worsens with weight bearing;ambulation extremely difficult and slow; uses oxycodone5-325 mg apap about 4 x a day with only temporary relief; finds easily sedated) Tiredness/Fatigue: Severe (7-10) (exhausted after radiation; has not recovered from any of treatment cycles; wake/sleep patterns very erractic; including timing of medications and eating) Drowsiness/Sedation: Severe (7-10) Nausea: Mild (1-3) Anorexia: Moderate (4-6), Weight loss (lost 35 pounds since started with Dx) Dyspnea: Moderate (4-6) Depression: Severe (7-10) (worsened after sister left; isolated and many feelings of grief and loss) Anxiety: Moderate (4-6) Feelings of wellbeing/Perceived Quality of Life: Poor, Worsening Sleep: Sleeps poorly, Variable sleep pattern (awakens with pain) Constipation: Yes, Opoid induced, Intermittent constipation Performance Status: Patient is severely limited by her, she is only able to ambulate short distances a few steps without severe incapacitating pain and needing frequent rest periods she does get some assistance with personal care and bathing, she has had to readjust as far as being able to meet her ability to do meal prep, she does get Meals on Wheels. She has had her sister out to help her during more serious times and she has been hospitalized her post hospitalization. - Palliative Care Discussion: Patient does understand the seriousness of her cancer, she has been quite frustrated by being "very special" with multiple side effects and complications over these last several months. She has tried multiple things to manage her chronic pain, including TENS, PT, topical and finds that oxycodone helpful but not effective. She is long-term been on her sertraline, initiated at the time of her divorce, has not revisited and a long discussion ensued regarding depressive symptoms, grief and loss, and her goals. Patient short-term goals, are she is hopeful to be able to have the hip surgery, she feels this would give her a chance to regain some functional status. She is currently on SSDI, would like to return to some level of work or improved income. She does understand the seriousness of her illness, but is hopeful given her current treatments, to have an extended quantity and quality of life. 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 Palliative care meeting with patient to 6 tablets rapport, define goals of care, and provide ongoing support. Recommendations/Counseling Done: 1. Acute on chronic right hip pain. Counseling provided regarding management of her pain, patient does get some relief, but dislikes the sedation. Counseling provided regarding using the oxycodone 5 mg / 325 mg a acetaminophen, encouraged to use one half tab more frequently to decrease feelings of sedation, and improve relief. Encouraged to take on a more regular basis, as she is "chasing the pain". She is to titrate down prior to her surgery, but currently is immobilized and unable to be functional secondary to her pain plus adding to her fatigue and overall stressors. 2. Depression. Patient does present with appropriate issues of grief and loss, and exploring her issues does appear to have exacerbation of her persistent depressions, with fluctuating sleep wake cycles. Patient has been instructed to try and create a schedule she can stay with, including medication times, eating, and awakening and bedtime. Counseling provided regarding impact on security rhythms, depressive feelings, and need to modulate this better. Counseling provided regarding CBT/light therapy. Patient does have a light box, instructed use 30 minutes upon awakening. 3. Diabetes type 2. Patient is not taking her metformin nor eating on a regular schedule. We did discuss in the context of diabetic management, and need to regulate better sugar levels, regular eating, as well as checking on a regular basis. Patient verbalized understanding. 4. Hypertension. This too is impacted by medication adherence, timing of medications. She has been more symptomatic with hypotension with increase of her blood pressures. Patient has been instructed to log her blood pressures at least twice a day, to better inform titration appropriately. 5. Advanced care planning. Patient's short-term goals are better pain management, increase mobility with hopeful outcome of hip surgery. Patient is aware of need for advanced care planning, will revisit at next visit. 6. Constipation. Patient has been instructed on appropriate bowel program, counseling provided regarding titration and medications. Verbalizes understanding. 7. Radiation dermatitis. Patient instructed to continue with Aquaphor, until area healed. Patient at this point in time without any signs or symptoms of infection, this was reviewed with patient. Time Spent: 90 minutes with greater than 50% of this done in counseling regarding management of multiple medical problems, pain and symptom management, and anticipatory guidance
== END 2019-05-10 11:16 | disposition home or self-care (01) ==
LOC: PC 11:15
PROVIDERS: ATTEND Nurse Practitioner Adult Health
DX: Z51.5 Encounter for palliative care (principal); M16.11 Unilateral primary osteoarthritis, right hip; F32.9 Major depressive disorder, single episode, unspecified; I82.721 Chronic embolism and thrombosis of deep veins of right upper extremity; G89.29 Other chronic pain; E11.42 Type 2 diabetes mellitus with diabetic polyneuropathy; I10 Essential (primary) hypertension; L59.8 Other specified disorders of the skin and subcutaneous tissue related to radiation; K59.03 Drug induced constipation; Y84.2 Radiological procedure and radiotherapy as the cause of abnormal reaction of the patient, or of later complication, without mention of misadventure at the time of the procedure; T40.2X5A Adverse effect of other opioids, initial encounter; R53.83 Other fatigue; R63.4 Abnormal weight loss; C50.912 Malignant neoplasm of unspecified site of left female breast; Z79.899 Other long term (current) drug therapy; Z72.820 Sleep deprivation; Z79.891 Long term (current) use of opiate analgesic; Z79.01 Long term (current) use of anticoagulants
CPT/HCPCS: 99345

== ENCOUNTER 2019-05-14 09:57 | Outpatient (CLI) | payer MEDICAID ==
[2019-05-14] MEDS ORDERED: IOVERSOL 320 100 ML VIAL IVP ONE ×2 (10:09→12:12)
[2019-05-14] MEDS ORDERED: IOVERSOL 320 50 ML VIAL ONE (10:09)
--- NOTE | 2019-05-17 07:00 | CT Report ---
Reason: LT BREAST CA Procedure Date: 05/14/2019 Accession Number: [id number] / [id number] Procedure: CT - Abdomen/Pelvis W CPT Code: Final Report FULL RESULT: EXAM: CT ABDOMEN AND PELVIS EXAM DATE: 05/14/2019 11:39 AM. CLINICAL HISTORY: Left breast CA. COMPARISONS: CHEST ANGIO 01/29/2019 1:48 PM ABDOMEN/PELVIS ANGIO 02/20/2019 9:37 AM ABDOMEN/PELVIS W/ 07/22/2018 4:42 PM ABDOMEN/PELVIS W/ 07/17/2018 3:30 PM. TECHNIQUE: Routine helical CT imaging was performed through the abdomen and pelvis. IV contrast: OPTI 320 100ML. Enteric contrast: No. Reconstructions: Coronal and sagittal. In accordance with CT protocol optimization, one or more of the following dose reduction techniques were utilized for this exam: automated exposure control, adjustment of mA and/or KV based on patient size, or use of iterative reconstructive technique. FINDINGS: Lung Bases: Bibasilar/Atelectasis. Partially visualized are consolidative changes in the left upper lobe. There is soft tissue edema and soft tissue thickening involving the left chest wall more prominent in the interval and better seen on the chest CT. Liver: No hepatic lesions. Patent portal vein. Gallbladder/Bile Ducts: Cholelithiasis. No pericholecystic edema. Spleen: Normal. Pancreas: Pancreatic parenchymal volume loss. No peripancreatic edema. Adrenal Glands: Adrenal gland thickening and nodularity again seen without significant change. 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 Kidneys enhance symmetrically. 1.5 cm low-attenuation lesion anterior mid left kidney is not as well delineated compared to the prior study due to motion. No hydronephrosis. No nephrolithiasis. Peritoneal Cavity/Bowel: Stomach is mildly distended and unremarkable. No small bowel obstruction or small bowel wall thickening. Fatty umbilical hernia. Small volume of stool in the colon. No diverticulitis. No free air. No free fluid. No enlarged retroperitoneal or mesenteric lymph nodes. The appendix is well visualized and normal. Pelvic Organs: Urinary bladder is mildly distended and unremarkable. No adnexal masses. No pelvic free fluid. No pelvic adenopathy. Vasculature: Vascular calcifications. No aneurysm. Mesenteric vasculature is patent. Bones: Mild lumbar scoliosis. Degenerative changes of the lumbar spine. Grade 1 anterolisthesis of L4 on L5. Degenerative changes of both hip joints. No acute osseous abnormalities. No distinct osseous lesions. Other: None. IMPRESSION: 1. No abdominal or pelvic adenopathy. 2. No hepatic or splenic lesions. 3. Cholelithiasis. 4. Left renal cyst, stable. 5. No osseous lesions. RADIA
--- NOTE | 2019-05-17 07:00 | CT Report ---
Reason: LT BREAST CA Procedure Date: 05/14/2019 Accession Number: [id number] / [id number] Procedure: CT - CHEST W CPT Code: Final Report FULL RESULT: EXAM: CT CHEST EXAM DATE: 05/14/2019 11:39 AM. CLINICAL HISTORY: Left breast CA. COMPARISONS: CHEST ANGIO 01/29/2019 1:48 PM CHEST W/O 08/31/2018 12:01 AM CHEST W/ 07/07/2018 10:45 AM. TECHNIQUE: Routine helical CT imaging was performed through the chest. IV contrast: 100 cc of Optiray 320. Reconstructions: Coronal and sagittal. In accordance with CT protocol optimization, one or more of the following dose reduction techniques were utilized for this exam: automated exposure control, adjustment of mA and/or KV based on patient size, or use of iterative reconstructive technique. FINDINGS: Lungs/Pleura: Extensive dense consolidation is present in the left upper lobe new in the interval with air bronchograms. There is mild left upper lobe volume loss. No pleural effusions or pneumothorax. No vascular congestion. 2 mm right middle lobe nodule again seen and stable seen best on image 207, series 3. Mediastinum: Visualized thyroid gland is heterogeneous. Heart size is upper normal. Trace pericardial effusion. Small hiatal hernia. No enlarged mediastinal or hilar lymph nodes are identified. No enlarged internal mammary lymph nodes. No enlarged axillary lymph nodes particularly on the left. Changes from left axillary lymph node dissection again seen. Bones: Degenerative changes of the thoracic spine. Anterior wedging of several lower thoracic vertebral bodies is again seen. No osseous lesions. Visualized Abdomen: Changes are seen from mastectomy bilaterally. Significant progression of marked soft tissue thickening and edema involving the left chest wall and soft tissues along the left hemithorax. Oval low-density area along the left lateral subcutaneous tissues measuring 5 x 1.6 cm again seen and may represent residual collection. Other: None. IMPRESSION: 1. New extensive area of dense consolidation anterior left upper lobe which may be infectious in etiology although more likely the result of posttreatment changes and represent radiation pneumonitis considering overlying soft tissue edema and thickening of the left chest wall soft tissues. Oval collection in the left subcutaneous tissues laterally is similar in size and may represent a residual collection. 2. No new mediastinal, hilar or axillary lymphadenopathy. 3. Stable right middle lobe 2 mm nodule. RADIA
== END 2019-05-14 09:58 | disposition home or self-care (01) ==
LOC: DI 09:57
PROVIDERS: ATTEND Radiology Therapeutic Radiology
DX: C50.812 Malignant neoplasm of overlapping sites of left female breast (principal); R91.8 Other nonspecific abnormal finding of lung field; Z17.0 Estrogen receptor positive status [ER+]; Z90.13 Acquired absence of bilateral breasts and nipples
CPT/HCPCS: 71260; 74177; Q9967

== ENCOUNTER 2019-05-16 08:00 | Outpatient (CLI) | payer MEDICAID | END 2019-05-16 23:59 | disposition home or self-care (01) | LOC: LAB.N 08:00 | PROVIDERS: ATTEND Family Medicine | DX: D68.59 Other primary thrombophilia (principal) | CPT/HCPCS: 85610 ==

== ENCOUNTER 2019-05-23 14:00 | Outpatient (CLI) | payer MEDICAID ==
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
== END 2019-05-23 14:01 | disposition home or self-care (01) ==
LOC: PC 14:00
PROVIDERS: ATTEND Nurse Practitioner Adult Health
DX: Z51.5 Encounter for palliative care (principal); M16.11 Unilateral primary osteoarthritis, right hip; R04.0 Epistaxis; I10 Essential (primary) hypertension; G89.29 Other chronic pain; F32.9 Major depressive disorder, single episode, unspecified; L59.8 Other specified disorders of the skin and subcutaneous tissue related to radiation; Y84.2 Radiological procedure and radiotherapy as the cause of abnormal reaction of the patient, or of later complication, without mention of misadventure at the time of the procedure; K59.03 Drug induced constipation; T40.2X5A Adverse effect of other opioids, initial encounter; I97.2 Postmastectomy lymphedema syndrome; R63.0 Anorexia; R11.2 Nausea with vomiting, unspecified; G47.29 Other circadian rhythm sleep disorder; C50.911 Malignant neoplasm of unspecified site of right female breast; Z79.899 Other long term (current) drug therapy; Z79.891 Long term (current) use of opiate analgesic; Z79.01 Long term (current) use of anticoagulants; Z86.718 Personal history of other venous thrombosis and embolism; Z90.13 Acquired absence of bilateral breasts and nipples
CPT/HCPCS: 99350

== ENCOUNTER 2019-05-29 09:10 | Outpatient (CLI) | payer MEDICAID | END 2019-05-29 09:11 | disposition home or self-care (01) | LOC: LAB 09:10 | PROVIDERS: ATTEND Family Medicine | DX: D68.59 Other primary thrombophilia (principal) | CPT/HCPCS: 85610 ==

== ENCOUNTER 2019-06-07 15:00 | Outpatient (CLI) | payer MEDICAID ==
--- NOTE | 2019-06-07 17:50 | CONSULTATION NOTE ---
Palliative Care Follow Up - Referral Referring Provider: Dr. Harika Lopez Time of Visit: [id number] Referral setting: Home Referral Reason: Radiation Dermatitis/Right hip pain/Breast CA/Depression - Information Sources Records reviewed: Previous records reviewed History/Review of Systems obtained from: Patient Exam limitations: No limitations - History of Present Illness Update Brief HPI Update: This is a 64-year-old woman who has left metastatic infiltrating ductal carcinoma, clinical stage T2N1, status post bilateral mastectomy and left axillary node dissection. She has received left wall radiation with severe dermatitis and the sequela of continued poor healing. She is receiving ongoing adjuvant Kadcyla every 3 weeks. She did trial the third hormonal treatment letrozole, yet again with intolerable side effects of chills, tachycardia, night sweats, and shortness of breath. She is somewhat anxious as this was to be a supplemental treatment, to prevent reoccurrence. Her understanding there are fewer or no other options to try. Her other sequela has been development of pockets of effusion/lymphadema, unfortunately most likely triggered by extreme pressure she has to put on her armrests in front walker because of her pain in her right hip. She did see her surgeon, she is going to have to have drains placed but through [facility]. She is off her warfarin in preparation. Though her area of dermatitis, is filling in, her radiation oncologist and it make a referral to wound care. Unfortunately this is been 2 weeks and no follow- through. Currently though I suspect she is on appropriate treatment with the Mepilex AG to manage drainage, and wrapped with antonio wraps. Unfortunately on the warfarin, it was causing a lot of bleeding, as well as the serous drainage most likely pressure from some of her lymphedema/effusions. She would not be a candidate for debridement, in fact she was told possibly might need a skin flap. We did discuss in the context of her unable to do her dressing independently, her homebound status, and severe pain getting out of the home plus pending surgery, would most likely benefit from home health support again. 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 She is counting down until her hip surgery on 06/24, she is hopeful none of the pending above complications are going to interfere with this. She has severe [id number] pain at 8 out of 10. Worsens with weightbearing and increase activity. She continues to use only intermittent oxycodone about 4 tabs in 24 hours with the oxycodone 5 mg / 325 mg acetaminophen. She only gets minimal relief but this does allow her to ambulate short distances. She would benefit from more aggressive pain management, but has been counseled by her orthopedist to actually cut back, he had asked she trade out for tramadol. We did discuss in the context of my concerns if she becomes less functional, her pain escalates more as it does affect her sleep, she is going to be in worse shape than if she needed extra pain medication on the other side of her surgery. She does not present with any symptoms of concern for long-term sequela of opioid use, she has weaned herself off in the past related to her back surgeries. She also has presents with persistent symptoms of depression, though this is improving with both her increase in her sertraline 150 mg, and patient is making a concentrated effort to create new routines, decrease her isolation, and engage in a better rhythm to her day. She is sleeping a little bit better, but pain still awakens her, and this affects her sleep/wake cycles. Off the warfarin, her nosebleeds have resolved. She does have a referral to her ENT. She is unclear if some of her appetite improvement is related to her lightening of her depression, or actually coming off the warfarin. She will follow-up if she needs to resume. Patient's other comorbidities include worsening peripheral neuropathy, concern for this though it was initially induced by her original chemotherapy, also has a diabetic overlay, and now suspect worsening with the Kadcyla. The numbness is more specific versus the pain, causing mostly on the left side, a sensation of her foot is made of hard plastic, mostly includes the toes and ball of the foot. Patient's other underlying comorbidities include chronic back pain with history of 2 laminectomies, spinal stenosis surgery in 2017 complicated by spinal dural sac rupture, morbid obesity, sleep apnea with CPAP use, hypertension, depression and anxiety. Social History - Living Situation Living arrangement: At home Living Situation: Alone Support System: Patient does live alone, she does have support through her [place] community. She does have [place] [employer] workers to help provide assistance that she is quite debilitated with pain and deconditioning, her sister from [place] is coming to stay with her 3/14 to assist after surgery. Medications/Allergies - Medications Home Medications: Ambulatory Orders Medication Instructions Recorded Confirmed Gabapentin 300 mg PO TID 06/27/18 06/07/19 Sertraline HCl 150 mg PO DAILY 06/27/18 06/07/19 Simvastatin 20 mg PO QPM 06/27/18 06/07/19 metFORMIN [Glucophage] 500 mg PO BIDWM 06/27/18 06/07/19 Lidocaine/Prilocaine 30 gm TOP PRN PRN 09/12/18 06/07/19 [Lidocaine-Prilocaine Cream] Oxycodone HCl/Acetaminophen 1 tab PO Q4HR PRN MDD 6 tabs 02/16/19 06/07/19 [Percocet 5-325 mg Tablet] Ascorbic Acid [Vitamin C] 500 mg PO DAILY 05/10/19 05/23/19 Calcium Carbonate/Vitamin D3 2 tab PO DAILY 05/10/19 06/07/19 [Calcium 500 mg-Vit D3 600 Unit] Cholecalciferol (Vitamin D3) 2,000 unit PO DAILY 05/10/19 06/07/19 [Vitamin D3] Metoprolol Tartrate 50 mg PO DAILY 05/10/19 06/07/19 Multivitamin [Multivitamins] 1 tab PO DAILY 05/10/19 06/07/19 Valsartan 80 mg PO DAILY 05/10/19 06/07/19 Vitamin B Complex/Folic Acid 1 tab PO DAILY 05/10/19 06/07/19 [Vitamin B Complex Tablet] - Allergies Allergies/Adverse Reactions: Allergies Allergy/AdvReac Type Severity Reaction Status Date / Time hydroxyzine Allergy Itching Verified 05/08/19 10:31 lorazepam Allergy Emesis Verified 05/08/19 10:31 meclizine Allergy Emesis Verified 05/08/19 10:31 codeine AdvReac Nausea Verified 05/08/19 10:31 silver AdvReac Rash Verified 05/08/19 10:31 [From Tegaderm AG Mesh] Review of Systems - Constitutional Constitutional: reports: Fatigue, Chills (with SE of letrozole), Weakness, Poor appetite, Night sweats (side effects of letrozole/resolving), Weight loss (218.5; 10-15 this last month). denies: Fever - Eyes Eyes: reports: Vision loss, Corrective lenses - Ears, Nose & Throat Ears, Nose & Throat: reports: Nosebleeds (improved off warfarin) - Cardiovascular Cardiovascular: reports: Lightheadedness, Exertional dyspnea, Decr. exercise tolerance - Respiratory Respiratory: denies: SOB at rest - Gastrointestinal Gastrointestinal: reports: Poor appetite, Early satiety, Other (taste changes). denies: Constipation, Nausea - Musculoskeletal Musculoskeletal: reports: Back pain, Muscle aches, Stiffness, Limited range of motion, Muscle weakness, Joint pain, Joint swelling, Assistive devices (uses walker with arm rests; leans full weight) - Integumentary Integumentary: reports: Dryness, Other (radiation dermatits left chest wall) - Neurological Neurological: reports: General weakness, Abnormal gait - Psychiatric Psychiatric: reports: Depression (improved), Anxiety - Endocrine Endocrine: reports: Diabetes type 2 - Hematologic/Lymphatic Hematologic/Lymphatic: reports: Blood clots, Bleeding tendencies (improved off warfarin) - All Other Systems All Other Systems: reports: Reviewed and negative Physical Exam - Vital Signs Temperature: 97.0 C Pulse Rate: 74 Respiratory Rate: 18 O2 Saturation: 95 (ra @ rest) Blood Pressure: 104/72 - Physical Exam General Appearance: positive: Alert, Moderate distress Eyes Bilateral: positive: Normal inspection Neck: positive: Trachea midline Cardiovascular: positive: Regular rate & rhythm Respiratory: positive: No respiratory distress, Breath sounds nml Abdomen: positive: Soft, Obese Skin: positive: Wound (left chest wall radiation burn; filling in but continues to drain serous fluid, has referral to wound care clinic/no appointment yet; not bleeding off warfarin while awaiting drain placement) Extremities: positive: Other (feet dark purple with venous congestion; slight pedal edema) Neurologic/Psychiatric: positive: Oriented x3, Weakness, Depressed mood/affect (improved), Flat affect Palliative Care - POLST Patient has POLST: No POLST Status: Full Code Pain: Pain worsening, Location (left hip;) Tiredness/Fatigue: Severe (7-10) Drowsiness/Sedation: Moderate (4-6) Nausea: None Anorexia: Moderate (4-6), Weight loss Dyspnea: Mild (1-3) Depression: Moderate (4-6) Anxiety: Moderate (4-6) Feelings of wellbeing/Perceived Quality of Life: Poor, Worsening Sleep: Sleep improved, Sleeps poorly, Variable sleep pattern Constipation: Yes, Opoid induced, Managed (use prunes) Performance Status: Patient's functional status remains severely compromised, when she is having severe pain, she can barely get in and out of bed, she cannot maneuver or turn on that hip. She can ambulate very short distances, with significant pressure on her upper forearms, pace is very slow. She is unable to bend down, and bathing is difficult. She needs assistance with her IADLs, cooking is quite complicated everything needs to be at counter level. Unfortunately any activity causes significant increase in pain and limited ability to perform ADLs. - Palliative Care Discussion: Patient is quite fearful all her complications are going to possibly put at risk her ability to have her surgery, she very much is holding out both emotionally and physically for this to happen on 06/24. She does have a preop appointment in the afternoon of 06/10. She does understand the risk, but feels her quality of life depends on this. 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 She tries to put it in a good light, but she is both exhausted physically and emotionally. She is looking forward to having her sister here to support her through her surgery. She has had to advocate for herself for multiple insurance issues, as well as getting appropriate care. She did find her DPOAE, which lists her sister Savannah Reyes [phone] is primary and follow-up her son Kd Lantigua [phone]. Results - Lab Results Lab results reviewed: Yes Lab and Imaging Results: Patient's most recent labs 05/29 WBC 5.3; hemoglobin 11.9; hematocrit 38.4 chemistries within normal limits, glucose was 169. These were 7 Impression and Recommendations - Palliative Care Impression: This is a 64-year-old woman who has had a complicated course with her diagnosis of breast cancer, and sequela from her treatments. Her biggest quality of life issue though, is her DJD of her right hip, with severe pain and limiting her functional status. She presents today with ongoing complications regarding her radiation dermatitis, will require increased help with new dressing changes. She also has a history of DVTs right arm, recent exacerbation of her hypertension and depression currently under control. Palliative care providing support for pain and symptom management, ongoing definition goals of care, and anticipatory guidance. Recommendations/Counseling Done: 1. Anorexia. Patient is doing better with her pills, is taking them with food. She is trying to be more consistent in her timing and take them earlier in the day. She reports this is improved but continues to be challenging. Patient continues with some weight loss, again encouraged and counseling provided for appropriate nutrition including protein intake. 2. Hypertension. She did initiate letrozole, did not result in increased hypertension, but in tachycardia, shortness of breath, chills, and night sweats. She has since come back off of this. Her blood pressure was within normal range today. 3. Acute on chronic pain. Patient reports oxycodone only lasting 3 to 4 hours, but still remaining with her 4 oxycodone a day. We will continue with her current dosing, but would benefit from more aggressive pain management, will hold off pending her hip surgery. She is quite exhausted with the severity of her pain, and severely limits her functional status. She is looking forward to her surgery 06/24, is hoping will not be delayed. 4. Radiation dermatitis. Patient has been instructed now by radiation oncology, to resume dressing changes. Unfortunately they had left asked her to just leave it open. This has not facilitated healing, she has had ongoing significant serous drainage, as well as bleeding as a result of her warfarin. She is currently off the warfarin which has helped, it has filled in since I last saw 2 weeks ago. She has been instructed to use Mepilex Ag, but is unable to apply and secure with her own [place]. She would benefit again from home health assistance with wound care, plus she has pending drains that are expected to be placed in the next week regarding her lymphedema. At this point time she does not show any signs or symptoms of infection, she has not gotten an appointment at the wound care clinic they would not be offering debridement. 5. Lymphedema/effusions. Patient did see her surgeon, he was and willing to drain it, feels like she needs drains placed via interventional radiology. She will be having this done at [facility]. She is quite discouraged that she has had drains before. We will add to her complications as far as her care needs. 6. Depression. Patient has had her sertraline increased, as well as counseling regarding cognitive behavioral techniques to address her depressive symptoms. Counseling provided to continue address recommendations regarding sleep/wake cycles, decrease isolation, improved socialization, she has made some improvements. She does feel this has been of benefit. 7. Nosebleeds. Patient currently off warfarin, she does have a referral to ENT and will follow up if recurs or needs to restart warfarin. 8. Advanced care planning. She was able to locate her DPOAE, will provide this to [facility], encouraged to take for her surgery schedule. Patient will continue want to be a full code at this point, but if she were to have a event or decline does not want her suffering prolonged. [id number]. It is a taxing considerable effort for the patient to leave the home secondary to her severe degenerative right hip pain, is only able to ambulate short distances. The patient's radiation dermatitis, and persistent wound, needs to reinitiate dressing changes, she is unable to do this independently, and does have pending appointment for drain placement, which she will need assistance in managing and monitoring as well. Request nursing for wound care, management of drains, patient will be receiving right hip replacem ent 06/24, will need ongoing support up to this point and following, with the addition at that point of physical therapy and OT on discharge. Time Spent: 60 minutes with greater than 50% of this done in counseling regarding pain and symptom management, facilitation coordination of care for home health, and anticipatory guidance.
== END 2019-06-07 15:01 | disposition home or self-care (01) ==
LOC: PC 15:00
PROVIDERS: ATTEND Nurse Practitioner Adult Health
DX: Z51.5 Encounter for palliative care (principal); R63.0 Anorexia; I10 Essential (primary) hypertension; M16.11 Unilateral primary osteoarthritis, right hip; I89.0 Lymphedema, not elsewhere classified; L59.8 Other specified disorders of the skin and subcutaneous tissue related to radiation; Y84.2 Radiological procedure and radiotherapy as the cause of abnormal reaction of the patient, or of later complication, without mention of misadventure at the time of the procedure; F32.9 Major depressive disorder, single episode, unspecified; K59.03 Drug induced constipation; T40.2X5A Adverse effect of other opioids, initial encounter; R04.0 Epistaxis; C50.912 Malignant neoplasm of unspecified site of left female breast; Z79.899 Other long term (current) drug therapy; Z79.01 Long term (current) use of anticoagulants; Z79.891 Long term (current) use of opiate analgesic; Z90.13 Acquired absence of bilateral breasts and nipples
CPT/HCPCS: 99350

== ENCOUNTER 2019-06-20 14:15 | Outpatient (CLI) | payer MEDICAID ==
--- NOTE | 2019-06-20 17:52 | CONSULTATION NOTE ---
Palliative Care Follow Up - Referral Referring Provider: Alee Valentino PA-C Time of Visit: [id number] Referral setting: Home Referral Reason: Depression/Acute on chronic pain/Met Breast CA - Information Sources Records reviewed: Previous records reviewed History/Review of Systems obtained from: Patient Exam limitations: No limitations - History of Present Illness Update Brief HPI Update: This isShe is also receiving wound care to her left breast area, where the dermatitis is, it is filling in, though remains fairly large 11 cm x 4 cm, but is only moist, drainage is decreased, and off the warfarin the bleeding has resolved. She is also not had any further nosebleeds. Patient reports had significant "freak out" as her surgery almost got postponed. This is result of her drains and wounds, she insisted and seen the orthopedic surgeon, and he did agree to move forward. She has been waiting relief from her pain, this is significantly deteriorated her quality of life, and does not feel like she can move on without getting her hip fixed. She does understand the risks she is taking, particularly given her history of 2 previous clots, but is willing given that she does not perceive she has current quality of life. Her surgery is scheduled for 06/24. She does have home health lined up, is currently receiving home health RN and bathing. She is receiving this from [facility], can be resumed at time of discharge. She feels the Mepilex is working on her wound, she is hoping to get her drains out when CBC is a surgeon tomorrow. She has had significant decrease in amount of drainage out. She continues to struggle with her severe pain, she feels the tramadol every 8 hours has helped some, but has added to sedation and wooziness. Her pain remains quite severe and her mobility is even worsening over the last week. Palliative care is been working with her depression and anxiety, at this point in time awaiting final outcome of surgery. Patient's hope is to have extended quality and quantity of life, does not proceed this is possible without her hip replacement. Her sister is coming and will be staying for at least a couple weeks, that she does not need to go to the SNF. She is looking forward to this finally being over. a 64-year-old woman who has left breast infiltrating ductal carcinoma, clinical stage T2N1, status post bilateral mastectomy and left axillary node dissection. She did receive left wall radiation with resulting severe dermatitis and the sequela of continued poor healing. She currently has her ongoing adjuvant Kadcyla on hold for pending right hip replacement. She is having worsening neuropathies, and some decrease in her white count. She was not able to tolerate the third hormonal treatment, unfortunately this means that she will not get adjuvant hormonal treatment and side effects are fairly severe. She currently has 2 drains, placed by her surgeon in pockets of effusion/lymphedema, most likely triggered as a result of the extreme pressure she puts on her upper extremities as a result of her poor mobility with severe DJD right hip. Social History - Living Situation Living arrangement: At home Living Situation: Alone Support System: Patient lives alone, she does have [employer] workers that do provide some help with household, she is getting bathing assist from home health. She does have a supportive hindu community and 2 children, but they are limited in what they can provide. Her long-term goal is to return to some level of function that she can resume some supportive employment, as she does have multiple financial stressors. Medications/Allergies - Medications Home Medications: Ambulatory Orders Medication Instructions Recorded Confirmed Gabapentin 300 mg PO TID 06/27/18 06/19/19 Sertraline HCl 150 mg PO DAILY 06/27/18 06/19/19 Simvastatin 20 mg PO QPM 06/27/18 06/19/19 metFORMIN [Glucophage] 500 mg PO BIDWM 06/27/18 06/19/19 Lidocaine/Prilocaine 30 gm TOP PRN PRN 09/12/18 06/19/19 [Lidocaine-Prilocaine Cream] Oxycodone HCl/Acetaminophen 1 tab PO Q4HR PRN MDD 6 tabs 02/16/19 06/19/19 [Percocet 5-325 mg Tablet] Ascorbic Acid [Vitamin C] 500 mg PO DAILY 05/10/19 06/19/19 Calcium Carbonate/Vitamin D3 2 tab PO DAILY 05/10/19 06/19/19 [Calcium 500 mg-Vit D3 600 Unit] Cholecalciferol (Vitamin D3) 2,000 unit PO DAILY 05/10/19 06/19/19 [Vitamin D3] Metoprolol Tartrate 50 mg PO DAILY 05/10/19 06/19/19 Multivitamin [Multivitamins] 1 tab PO DAILY 05/10/19 06/19/19 Valsartan 80 mg PO DAILY 05/10/19 06/19/19 Vitamin B Complex/Folic Acid 1 tab PO DAILY 05/10/19 06/19/19 [Vitamin B Complex Tablet] traMADol [Ultram] 50 mg PO PRN PRN 06/19/19 06/19/19 - Allergies Allergies/Adverse Reactions: Allergies Allergy/AdvReac Type Severity Reaction Status Date / Time hydroxyzine Allergy Itching Verified 06/19/19 11:14 lorazepam Allergy Emesis Verified 06/19/19 11:14 meclizine Allergy Emesis Verified 06/19/19 11:14 codeine AdvReac Nausea Verified 06/19/19 11:14 silver AdvReac Rash Verified 06/19/19 11:14 [From [employer]esh] Review of Systems - Constitutional Constitutional: reports: Fatigue, Weakness, Weight stable. denies: Fever, Chills, Night sweats - Eyes Eyes: reports: Vision loss, Corrective lenses - Ears, Nose & Throat Ears, Nose & Throat: reports: Dry mouth - Cardiovascular Cardiovascular: reports: Lightheadedness, Decr. exercise tolerance. denies: Edema - Respiratory Respiratory: denies: Cough, Wheezing, SOB at rest - Gastrointestinal Gastrointestinal: reports: Early satiety. denies: Constipation, Nausea, Reflux/heartburn - Genitourinary Genitourinary: reports: Frequency, Urgency - Musculoskeletal Musculoskeletal: reports: Muscle pain, Back pain, Muscle aches, Stiffness, Limited range of motion, Muscle weakness, Joint pain, Assistive devices (uses walker; more difficulty with mobility) - Integumentary Integumentary: reports: Dryness, Other (radiation dermatitis; 2 surgical drains for lymphadema) - Neurological Neurological: reports: General weakness, Numbness (worsening in hands and feet), Abnormal gait - Psychiatric Psychiatric: reports: Depression, Anxiety - Endocrine Endocrine: reports: Diabetes type 2 - Hematologic/Lymphatic Hematologic/Lymphatic: denies: Recurrent infections - All Other Systems All Other Systems: reports: Reviewed and negative Physical Exam - Vital Signs Temperature: 97.6 C Pulse Rate: 63 Respiratory Rate: 18 O2 Saturation: 96 (ra @ rest) Blood Pressure: 133/73 - Physical Exam General Appearance: positive: Alert Eyes Bilateral: positive: Normal inspection ENT: positive: No signs of dehydration Neck: positive: Trachea midline Cardiovascular: positive: Regular rate & rhythm Respiratory: positive: No respiratory distress, Breath sounds nml Abdomen: positive: Soft, Nml bowel sounds Skin: positive: Wound (drsg intact on chest; drain on right with less resolution of fluid pocket; fluid clear yellow now less than 30 ml 24 hours; drain on left painful as underneath dermatitis area; min drainage in bag clear) Extremities: positive: No pedal edema Neurologic/Psychiatric: positive: Oriented x3, Weakness, Depressed mood/affect, Flat affect Palliative Care - POLST Patient has POLST: No POLST Status: Full Code Pain: Pain worsening, Location (Currently on tramadol 50 mg 3 times daily, using oxycodone 5 mg for breakthrough pain 3-4 times a day. Her pain has been worsening, having more side effects of sedation and dizziness with tramadol, but trying to decrease her oxycodone per Dr. Boykin's suggestion. Patient also has acute pain with drain exit site and chest. She is hoping to have this removed prior to surgery.) Tiredness/Fatigue: Severe (7-10), Comment (continues to struggle with day/night patterns) Drowsiness/Sedation: Moderate (4-6) Nausea: Mild (1-3) Anorexia: Mild (1-3), Weight loss Dyspnea: Mild (1-3) Depression: Moderate (4-6) Anxiety: Severe (7-10) (pending surgery; worried about it getting cancelled in light of COVID19) Feelings of wellbeing/Perceived Quality of Life: Poor, Worsening Sleep: Sleeps poorly, Variable sleep pattern Constipation: Yes, Comment (uses prunes) Performance Status: Patient's functional status continues to deteriorate, she is only able to ambulate very slowly, this related to the severity of her pain. She does need assistance with bathing, meal prep is challenging given it includes needing to stand or ambulate in the kitchen. - Palliative Care Discussion: Patient is somewhat resigned and pragmatic regarding her overall seriousness of her illness. She is hoping for improvement in quality of life with her hip replacement, recognizing she is at high risk for recurrence and worsening or recurrent breast cancer. She has had complications all the way along, she has actually quite clear she does not want to return on warfarin and is willing to take the risk after surgery as well. She is quite discouraged, very exhausted from the pain, and is hoping for a good outcome. She has been waiting for a long period of time for this to happen, and almost in her mind did not with recent happenings, hopefully they will move forward on Tuesday with her surgery. Results - Lab Results Lab results reviewed: Yes Impression and Recommendations - Palliative Care Impression: This is a 64-year-old woman who has had a complicated course with her diagnosis of breast cancer, and sequela from her treatments. She is to have surgery 06/24 for DJD of her right hip, with severe limiting pain for her functional status and quality of life. She continues with ongoing complications regarding her radiation dermatitis, as well as declining functional status with worsening pain. Palliative care providing support for pain and symptom management, ongoing definition of goals of care, and anticipatory guidance. Recommendations/Counseling Done: 1. Acute on chronic pain. She is using her tramadol 50 mg every 8 hours, with concurrent intermittent use of oxycodone 5 mg for breakthrough pain with a maximum of 3 to 4-day. She is quite exhausted from the severity of her pain and limits on her functional status, she is looking forward to her surgery 06/24. She is quite clear given her side effects of most medications and in particular pain medications, she wants to titrate off fairly quickly. Counseling provided regarding follow-up strategy, will see after discharge. 2. Anorexia. Patient is doing better with her pills, trying to be more consistent in her timing, continues to be quite challenging. Patient continues with weight loss, counseling again reinforced for appropriate nutrition and protein intake. 3. Hypertension. Currently controlled off of hormonal treatment, unfortunately she is not able to tolerate this. 4. Radiation dermatitis. This is looking better, she has had home health RN support which is helpful, as well as bathing. She will continue after surgery as well is add PT/OT. She is also being seen by the wound care clinic for monitoring and progression of plan. 5. Depression. Patient has had her sertraline increased, as well as counseling regarding cognitive behavioral techniques. Will revisit after her surgery, given the sequela of multiple issues that have arisen. We will continue follow- up on advanced care planning as treatment plan emerges. Time Spent: 60 minutes with greater than 50% of this done in counseling regarding anxiety, depression, pain and symptom management, and anticipatory guidance.
== END 2019-06-20 14:16 | disposition home or self-care (01) ==
LOC: PC 14:15
PROVIDERS: ATTEND Nurse Practitioner Adult Health
DX: Z51.5 Encounter for palliative care (principal); G89.29 Other chronic pain; L59.8 Other specified disorders of the skin and subcutaneous tissue related to radiation; Y84.2 Radiological procedure and radiotherapy as the cause of abnormal reaction of the patient, or of later complication, without mention of misadventure at the time of the procedure; C50.912 Malignant neoplasm of unspecified site of left female breast; I97.2 Postmastectomy lymphedema syndrome; G47.20 Circadian rhythm sleep disorder, unspecified type; M16.11 Unilateral primary osteoarthritis, right hip; I10 Essential (primary) hypertension; F32.9 Major depressive disorder, single episode, unspecified; F41.9 Anxiety disorder, unspecified; R63.0 Anorexia; K59.00 Constipation, unspecified; Z79.899 Other long term (current) drug therapy; Z79.891 Long term (current) use of opiate analgesic
CPT/HCPCS: 99350

== ENCOUNTER 2019-07-05 10:30 | Outpatient (CLI) | payer MEDICAID ==
--- NOTE | 2019-07-05 18:35 | CONSULTATION NOTE ---
Palliative Care Follow Up - Referral Referring Provider: Dr. Harika Lopez Time of Visit: [id number] Referral setting: Home Referral Reason: Acute on chronic pain/peripheral neuropathy/Breast CA - Information Sources Records reviewed: RN notes reviewed ( wound images), Previous records reviewed History/Review of Systems obtained from: Patient, Family (sister from [place] present) Exam limitations: No limitations - History of Present Illness Update Brief HPI Update: This is a 64-year-old woman who has left metastatic infiltrating ductal carcinoma, clinical stage T2N1, status post bilateral mastectomy and left axillary node dissection. She has been receiving ongoing adjuvant Kadcyla every 3 weeks, is due for treatment next week. She has been trialed on hormonal treatments without able to tolerate side effects. Her most urgent and persistent problem at this point in time is being status post her right hip replacement. She did have a difficult time with right foot drop, she does have acute on chronic pain. She reports her pain is located where the "titanium vicente" and ball and socket are. She did have some severe acute pain yesterday with weightbearing, but can attributed to some of her movement/exercises done. Unfortunately given the coronavirus, as she was the second last surgery that was done as an elective. They were quite anxious to get her transition to a SNF but she wanted to come home. She does have her sister visiting from [place] and who has been able to help her as she does need much more help than she had envisioned. She needs assistance from getting from the bed, and transfer to the commode. She does have severe pain and difficulty as a combination of both her surgery and her worsening peripheral neuropathy to be able to tolerate exercises. She was only given a few bed mobility and encouraged for ambulation. Unfortunately physical therapy has not been able to attend to her until tomorrow. Patient has somewhat of a "funky" pain regimen going on with alternating every 2 hours hydromorphone 2 mg, oxycodone 10 mg/325 with acetaminophen/tramadol 50 mg. She has been able to stretch these out into longer periods them not clear the rationale but is time to trying to taper off. Though pointed out not clear on goal if she is having persistent pain, and her peripheral neuropathy is so bad. Her most severe pain though is actually her worsening peripheral neuropathy. She did have somewhat of a numbness felt like she was walking on a blank slate, had weird sensations but now not only has the numbness worsened, but now has developed hyper analgesia and sharp shooting pains in her feet with not able to tolerate any kind of pressure or touch. She was told that the Kadcyla did have as a side effect peripheral neuropathy, and has been concern for worsening symptoms. Unfortunately she is due for this next week they had held it for her surgery, will reach out to her oncologist to see if they want to wait if she has no evaluation pre-prior to her treatment Social History - Living Situation Living arrangement: At home Living Situation: Alone Support System: Currently sister from [place] is staying with patient, she was originally supposed to leave next week, currently is scheduled to leave 07/16. This is an last she is recalled by restrictions on [place] with [place] virus in full force. Unfortunately patient requiring a significant amount of help, so would be difficult if she were to leave. Medications/Allergies - Medications Home Medications: Ambulatory Orders Medication Instructions Recorded Confirmed Gabapentin 300 mg PO TID MDD 600 mg at bedtime 06/27/18 07/05/19 Sertraline HCl 150 mg PO DAILY 06/27/18 07/05/19 Simvastatin 20 mg PO QPM 06/27/18 07/05/19 metFORMIN [Glucophage] 500 mg PO BIDWM 06/27/18 07/05/19 Lidocaine/Prilocaine 30 gm TOP PRN PRN 09/12/18 07/05/19 [Lidocaine-Prilocaine Cream] Oxycodone HCl/Acetaminophen 1 tab PO Q4HR PRN MDD 6 tabs 02/16/19 07/05/19 [Percocet 5-325 mg Tablet] Ascorbic Acid [Vitamin C] 500 mg PO DAILY 05/10/19 07/05/19 Calcium Carbonate/Vitamin D3 2 tab PO DAILY 05/10/19 07/05/19 [Calcium 500 mg-Vit D3 600 Unit] Cholecalciferol (Vitamin D3) 2,000 unit PO DAILY 05/10/19 07/05/19 [Vitamin D3] Metoprolol Tartrate 50 mg PO DAILY 05/10/19 07/05/19 Multivitamin [Multivitamins] 1 tab PO DAILY 05/10/19 07/05/19 Valsartan 80 mg PO DAILY 05/10/19 07/05/19 Vitamin B Complex/Folic Acid 1 tab PO DAILY 05/10/19 07/05/19 [Vitamin B Complex Tablet] traMADol [Ultram] 50 mg PO PRN PRN 06/19/19 07/05/19 HYDROmorphone [Dilaudid] 2 mg PO Q8HR PRN 07/05/19 07/05/19 Oxycodone HCl/Acetaminophen 1 tab PO Q8HR PRN 07/05/19 07/05/19 [Oxycodone-Acetaminophen 10-325] Senna [Senokot] 1 - 2 tab PO DAILY PRN 07/05/19 07/05/19 Warfarin Sodium 5 mg PO DAILY 07/05/19 07/05/19 - Allergies Allergies/Adverse Reactions: Allergies Allergy/AdvReac Type Severity Reaction Status Date / Time hydroxyzine Allergy Itching Verified 06/19/19 11:14 lorazepam Allergy Emesis Verified 06/19/19 11:14 meclizine Allergy Emesis Verified 06/19/19 11:14 codeine AdvReac Nausea Verified 06/19/19 11:14 silver AdvReac Rash Verified 06/19/19 11:14 [From Tegaderm AG Mesh] Review of Systems - Constitutional Constitutional: reports: Fatigue, Weight stable. denies: Fever, Chills - Eyes Eyes: reports: Vision loss, Corrective lenses - Ears, Nose & Throat Ears, Nose & Throat: reports: Dry mouth - Cardiovascular Cardiovascular: reports: Decr. exercise tolerance - Respiratory Respiratory: denies: Cough, SOB at rest - Gastrointestinal Gastrointestinal: reports: Constipation (with surgery), Good appetite. denies: Nausea - Musculoskeletal Musculoskeletal: reports: Muscle pain (right thigh), Back pain, Muscle aches, Stiffness, Limited range of motion, Muscle weakness, Assistive devices (uses still walker with arm rests) - Integumentary Integumentary: reports: Dryness, Other (radiation dermatits on chest almost resolved; drains bilat. still in place) - Neurological Neurological: reports: General weakness, Abnormal gait - Psychiatric Psychiatric: reports: Depression, Anxiety - Endocrine Endocrine: reports: Diabetes type 2 (not checking BS; stable in hospital) - Hematologic/Lymphatic Hematologic/Lymphatic: reports: Anemia, Blood clots (agreed to stay on Warfarin until surgery risk past). denies: Recurrent infections - All Other Systems All Other Systems: reports: Reviewed and negative Physical Exam - Vital Signs Temperature: 97.5 C Pulse Rate: 68 Respiratory Rate: 18 O2 Saturation: 95 (ra @ rest) Blood Pressure: 116/78 - Physical Exam General Appearance: positive: Alert, Mild distress Eyes Bilateral: positive: Normal inspection ENT: positive: Other (white coat on tongue; inst on oral care/s&s candidiasis; recommended saline rinses) Neck: positive: Trachea midline Cardiovascular: positive: Regular rate & rhythm Respiratory: positive: No respiratory distress, Breath sounds nml Abdomen: positive: Soft, Nml bowel sounds, Obese Skin: positive: Pallor, Dryness, Wound (examinied in HHRN photo; almost healed; exit sites of drains w/out s/s infection; hip incision with steristrips in place;) Extremities: positive: Other (has support hose on; severe peripheral pain worsening) Neurologic/Psychiatric: positive: Oriented x3, Mood/affect nml, Weakness, Flat affect Palliative Care - POLST Patient has POLST: No POLST Status: Full Code Pain: Pain worsening, Location (see hPI) Tiredness/Fatigue: Moderate (4-6) Drowsiness/Sedation: Mild (1-3) Nausea: None Anorexia: Mild (1-3) Dyspnea: Mild (1-3) Depression: Mild (1-3) (improved with routine and support in home of sister) Anxiety: Moderate (4-6) Feelings of wellbeing/Perceived Quality of Life: Fair, Improved Sleep: Variable sleep pattern Constipation: Yes, Opoid induced, Intermittent constipation Performance Status: Patient is still needing help getting from laying to sitting and sitting to standing as well as pivoting to the commode. When she is up she is able to ambulate short distances with her walker, with platform upper extremity support. She still is having to offload the weight onto her arms, she does have right foot drag. She does report this is improving somewhat but very slowly day-to-day. She is quite discouraged with this. She does need maximum assist for bathing, assistance with her support hose, as well as assistance with dressing. Her sister is keeping her on a regimen, she is eating regularly, and is spending less time in bed. - Palliative Care Discussion: Patient is expressing significant disappointment, had higher expectations for relief of pain and discomfort. She is grateful to have the had the surgery, but disappointed with the complications and the foot drop. She had envisioned herself more independent at this point in time and with less pain. She is very frustrated, somewhat anxious if her sister has to leave prematurely, and continues to have had a series of unfortunate events with almost all her medical experiences this last year. Impression and Recommendations - Palliative Care Impression: This is a 64-year-old woman who continues to have a complicated course with her diagnosis of breast cancer, and sequela from her treatments. Now she has had an expected outcome from her surgery 06/24 with her hip replacement of her right hip, with resulting in foot drop, and persistent pain. She continues with complications regarding her radiation dermatitis, though her wound is healing, she is hoping to have her drains out next week, and is doing worse with her peripheral neuropathy attributed this point in time to her Kadcyla. Palliative care continue provide support for pain and symptom management, and ongoing definition of goals of care and anticipatory guidance. Recommendations/Counseling Done: 1. Acute on chronic pain. Patient has multiple opioids, is a little bit defensive regarding her rationale and how she is using. She is using the tramadol 50 mg every 8 hours alternating with oxycodone 10 mg / 325 mg every 8- 10 hours, alternating with hydromorphone 2 mg every 8 hours. It does appear she is taking something about every 2-3 hours. We did discuss in the context of opioids, best to work with just 1 opioid and appropriate dosing. She will not have the hydromorphone nor the tramadol refilled, so she still has a few days yet. Her pain is mostly located at this point in time as far as acute pain in her right hip and thigh, she has had some exacerbation with movement and exercise. 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 Her acute pain of her hip is improving but is slow to respond. 2. Peripheral neuropathy. This is multifactorial, most likely residual from previous chemotherapy, worsening with kadceyla, she does have diabetes type 2 but this is actually fairly well controlled and newer diagnosis for her so unlikely adding much to the exacerbation. She originally had mostly numbness and balance issues, now presents with hyper analgesia and severe sharp shooting pains. She is due for another round of treatment on [place], with no provider visit scheduled. Will reach out to oncology with concerns of worsening symptoms. He is currently on gabapentin 300 mg 3 times daily, we also discussed the role of opioids off and support in combination with the gabapentin, may need to continue her oxycodone to be able to tolerate her worsening peripheral neuropathy. She is quite focused on titrating off the opioids, as she does not like the side effects. 3. Radiation dermatitis. Did examine the wound photos from home health RN, does appear almost healed, filling in nicely no signs or symptoms of infection. They had changed up her wound care at [place], her sister is assisting with frequency. Hopefully will be healed within 1 to 2 weeks. 3. Seroma. Surgeon did leave in drains, concerned would need to reinsert as it only been in 7 to 10 days prior to surgery. She is having scant drainage, will make an appointment for next week. They do appear ready to pull. Patient did not want any further doctor appointments this week. Encouraged to follow through, as it does increase her risk for infection. 4. Status post right hip replacement. Unfortunately patient presents with residual foot drag. This is improving slowly, she is to initiate physical therapy tomorrow. Though she is somewhat concerned given her fluctuating pain levels. She was hoping to be more independent, though both her and her sister admit she is improving some every day. She has been continued on the warfarin for prophylactic prevention of DVT, she will continue this for safety. She is still at some point planning to discontinue when no longer at risk after surgery. 5. Depression. Patient is benefiting from structure and support of her sister, she is getting up, taking her pills on a regular basis, keeping to her routine. She does seem brighter and easier to engage. Though she is disappointed with the outcome, and stay at [facility], she is grateful to have had her surgery. We will continue to monitor, currently on sertraline 150 mg daily. Time Spent: 60 minutes with greater than 50% of this and in counseling regarding pain and management, anticipatory guidance, depression, anxiety and coordination of care with home health/oncology.
== END 2019-07-05 10:31 | disposition home or self-care (01) ==
LOC: PC 10:30
PROVIDERS: ATTEND Nurse Practitioner Adult Health
DX: Z51.5 Encounter for palliative care (principal); G89.29 Other chronic pain; G62.9 Polyneuropathy, unspecified; M25.551 Pain in right hip; M21.371 Foot drop, right foot; L59.8 Other specified disorders of the skin and subcutaneous tissue related to radiation; Y84.2 Radiological procedure and radiotherapy as the cause of abnormal reaction of the patient, or of later complication, without mention of misadventure at the time of the procedure; E11.9 Type 2 diabetes mellitus without complications; K59.03 Drug induced constipation; T40.2X5A Adverse effect of other opioids, initial encounter; M96.843 Postprocedural seroma of a musculoskeletal structure following other procedure; F32.9 Major depressive disorder, single episode, unspecified; C50.912 Malignant neoplasm of unspecified site of left female breast; C79.9 Secondary malignant neoplasm of unspecified site; Z79.899 Other long term (current) drug therapy; Z79.891 Long term (current) use of opiate analgesic; Z79.01 Long term (current) use of anticoagulants; Z79.84 Long term (current) use of oral hypoglycemic drugs; Z96.641 Presence of right artificial hip joint; Z90.13 Acquired absence of bilateral breasts and nipples
CPT/HCPCS: 99350

== ENCOUNTER 2019-07-31 12:56 | Outpatient (CLI) | payer MEDICAID ==
--- NOTE | 2019-07-31 16:29 | CONSULTATION NOTE ---
Palliative Care Follow Up - Referral Referring Provider: Dr. Harika Lopez Time of Visit: [id number] Referral setting: [facility] [place] Referral Reason: CIPN/Breast Ca/Depression - Information Sources Records reviewed: Previous records reviewed History/Review of Systems obtained from: Patient Exam limitations: No limitations - History of Present Illness Update Brief HPI Update: This is a 64-year-old woman who has left breast infiltrating ductal carcinoma, clinical stage T2N1 status post mastectomy, left axillary lymph node dissection, and left chest wall radiation with severe burn. She had been receiving ongoing adjuvant Kadcyla every 3 weeks, unfortunately has had worsening peripheral neuropathy, and was held. She has also been trialed on multiple hormonal treatments and unable to tolerate side effects. Patient recently had her right hip replacement surgery 06/25/2019, it too had significant complications. She is coming out of this though, with minimal foot drag, improved pain management, and is now able to ambulate with a cane. She is still working with home health PT secondary to deconditioning, poor quad str ength, and continues to be struggling with balance this is both related to strength as well as her neuropathy. Patient has had escalating neuropathy, she describes uses sharp shooting pain, severe hyper analgesia across not only the front of her toes and foot but now extended up over up into the ankle. She feels she can discern the floor, but has no tolerance of any kind of touch, she had tried increase gabapentin 600 mg 3 times daily, but only with worsening side effects of fever, chills, poor appetite, and concern for respiratory depression. She has weaned herself off her opioids, she uses the tramadol intermittently if she is unable to sleep, this is been less than once or twice a week. She does report the EMLA cream has been helpful, but is unable to apply it given her hip precautions. We had discussed early last week about transitioning over to pregabalin, she is followed up with her oncologist and will move forward with this today. The goal would be to evaluate for less side effects, as well as more rapid titration to effect. Patient though is quite sensitive to most medications, and has multiple allergies. The other thing she is struggling with is certainly her depression. She has been working fairly aggressively to try and keep her routine, she denies any persistent hopelessness or helplessness, though she does see herself if her pain does not improve getting back into bad habits again. She has been making a effort to get out into her garden daily, as well as trying to keep her routine. She does get quite fatigued, and if she takes a nap, she is still not sleeping all day, so remains hopeful she can continue her current schedule. She continues to struggle with her issue of warfarin, she is planning to stop at the end of the month. Her perception is that she had 2 blood clots in direct relation to her PIC/Port-A-Cath and does not perceive her risk is high given her breast cancer. We did review this again, she perceives herself is taking "rat poison" she dislikes that protimes, and continues to struggle with getting into therapeutic range. We did discuss if she would be willing to try an alternative, possibly Eliquis, though this would not be the standard of care it would certainly be better than not having coverage given her history. Social History - Living Situation Living arrangement: At home Living Situation: Alone Support System: Patient does live by herself, she does have [employer] workers that provide support for household, errands, and shopping. She did have her sister for short period of time, but she need to return to [place] because of the [place] [employer] crises. She does have 2 children, who do check on her, but she is fairly independent and does most of her activities on her own. She is hoping at some point to return to some kind of work life, she was able to get Social Security disability, but this is still quite limiting as far as she still has significant financial stressors regarding this.She is continued with home health RN for PT/INR's as well as home physical therapy given the limitations at this point in time with [place] V[employer] 19 we will continue until maximize this benefit Medications/Allergies - Medications Home Medications: Ambulatory Orders Medication Instructions Recorded Confirmed Sertraline HCl 150 mg PO DAILY 06/27/18 07/31/19 Simvastatin 20 mg PO QPM 06/27/18 07/31/19 metFORMIN [Glucophage] 500 mg PO BIDWM 06/27/18 07/31/19 Cholecalciferol (Vitamin D3) 2,000 unit PO DAILY 05/10/19 07/31/19 [Vitamin D3] Metoprolol Tartrate 50 mg PO DAILY 05/10/19 07/31/19 Multivitamin [Multivitamins] 1 tab PO DAILY 05/10/19 07/31/19 Valsartan 80 mg PO DAILY 05/10/19 07/31/19 Vitamin B Complex/Folic Acid 1 tab PO DAILY 05/10/19 07/31/19 [Vitamin B Complex Tablet] traMADol [Ultram] 50 mg PO PRN PRN 06/19/19 07/31/19 Senna [Senokot] 1 - 2 tab PO DAILY PRN 07/05/19 07/31/19 Warfarin Sodium 5 mg PO DAILY 07/05/19 07/31/19 Capsaicin/Me-Salicylate/Menth 1 applic TOP TID PRN 07/31/19 07/31/19 [Dendracin Lotion] Gabapentin 300 mg PO Q8H MDD tapering off 07/31/19 07/31/19 Pregabalin 50 mg PO TID 07/31/19 07/31/19 - Allergies Allergies/Adverse Reactions: Allergies Allergy/AdvReac Type Severity Reaction Status Date / Time hydroxyzine Allergy Itching Verified 07/31/19 13:12 lorazepam Allergy Emesis Verified 07/31/19 13:12 meclizine Allergy Emesis Verified 07/31/19 13:12 codeine AdvReac Nausea Verified 07/31/19 13:12 silver AdvReac Rash Verified 07/31/19 13:12 [From Tegaderm AG Mesh] Review of Systems - Constitutional Constitutional: reports: Fatigue (improved), Fever (intermittent associates with gabapentin), Weakness, Poor appetite, Night sweats - Eyes Eyes: reports: Vision loss, Corrective lenses - Ears, Nose & Throat Ears, Nose & Throat: denies: Mouth lesions - Cardiovascular Cardiovascular: reports: Decr. exercise tolerance - Respiratory Respiratory: denies: SOB at rest - Gastrointestinal Gastrointestinal: reports: Other (fluctuating appetite). denies: Constipation, Nausea - Genitourinary Genitourinary: denies: Incontinence - Musculoskeletal Musculoskeletal: reports: Muscle pain, Muscle aches, Stiffness, Limited range of motion, Muscle weakness, Assistive devices (using rolling walker for uneven surfaces; cane at home) - Integumentary Integumentary: reports: Dryness, Other (chest burn from radiation finally healed) - Neurological Neurological: reports: General weakness, Numbness (see HPI), Abnormal gait - Psychiatric Psychiatric: reports: Depression, Anxiety - Endocrine Endocrine: reports: Diabetes type 2 - Hematologic/Lymphatic Hematologic/Lymphatic: reports: Blood clots - All Other Systems All Other Systems: reports: Reviewed and negative Physical Exam - Vital Signs Temperature: 36.8 C Pulse Rate: 66 Respiratory Rate: 18 Blood Pressure: 121/65 - Physical Exam General Appearance: positive: Alert, Mild distress Eyes Bilateral: positive: Normal inspection ENT: positive: No signs of dehydration Neck: positive: Trachea midline Respiratory: positive: No respiratory distress Skin: positive: Pallor, Dryness, Wound (skin thinnes and pink over burn area) Extremities: positive: No pedal edema Neurologic/Psychiatric: positive: Oriented x3, Mood/affect nml, Flat affect Palliative Care - POLST Patient has POLST: No POLST Status: Full Code Pain: Pain worsening, Location (see HPI), Severity (6/10 up to 10/10 with touch at night; worsens with activity) Tiredness/Fatigue: Moderate (4-6) Drowsiness/Sedation: Mild (1-3) Nausea: None Anorexia: Moderate (4-6) Dyspnea: None Depression: Mild (1-3) Anxiety: Moderate (4-6) Feelings of wellbeing/Perceived Quality of Life: Fair, Acceptable, Improved Sleep: Sleeps poorly (pain worse at night; has used tramadol with some relief) Constipation: Yes, Managed Performance Status: Patient's functional status is continue to improve, she has graduated to a cane on flat even surfaces. She has not done getting in and out of car, transfers, doorstep training yet. She is still needing assistance with bathing, she is try ing to remain adherent to her hip precautions. She has had no falls. We did review she has been deconditioned for over a year, is good to take her some time to regain back her strength and able to manage her ADLs independently. - Palliative Care Discussion: Patient is starting to feel encouraged that she is starting to improve in light of her functional status with her hip replacement. She has had complications all the way along this last year both with her cancer treatment, attempting to find treatments that she can tolerate, as well as her most recent surgery for her hip. Patient does recognize the seriousness of her illness, and has been discouraged as far as finding support long-term to decrease her odds of recurrence. She is quite focused on quitting her warfarin, though we did did discuss given her goals which is remained as independent as possible that having a stroke would certainly put her at risk for dependency or not able to meet those goals. She had mostly been thinking about it in the context of an end-of-life event not shelter implications. She would consider an alternative, agreed that it was okay if I reached out to her oncology team if possible Eliquis would be a option. She is quite determined though to "not be talked out of this".She does perceive her quality of life overall is improving, though is quite clear that she does not want to do anything to worsen her current functional status or worsen her pain, recognizing that may mean she may not be able to continue on the Kadcyla Results - Lab Results Lab results reviewed: Yes Impression and Recommendations - Palliative Care Impression: This is a 64-year-old woman who is starting to see some improvement with her right hip replacement, improved functional status, and decreased hip pain. Unfortunately her CI PN continues to worsen, her Kadcyla continues on hold, and is experiencing side effects from the gabapentin. Patient willing to trial a transition to pregabalin, she is continue to work with physical therapy home health, and awaiting further instruction of what to do next as far as supporting her breast cancer. Her chest wall has healed, she feels her depression is currently managed, and her quality of life is improving. Palliative care continue provide support for pain and symptom management, ongoing definition of goals of care, and anticipatory guidance Recommendations/Counseling Done: 1. Chemotherapy-induced peripheral neuropathy. This is multifactorial, as she does have diabetes underlying. Etiology is thought to be from previous chemotherapy, worsening with Kadcyla. She has not had any improvement though she has been on a break, if anything has worsened. She has not done well with increase in gabapentin of 600 mg 3 times daily, she perceives side effects to have been fever, chills, worsening sedation, and anorexia. We did discuss in trade off, we could try the pregabalin, does tend to have a less acute side effect profile, though certainly similar. It is more short acting, and we can titrated affect. It is thought to have a 6-1 ratio, will titrate her down off the gabapentin for a week, and then switch. Patient is been instructed to decrease her gabapentin to 300 mg 3 times a day x5 days, 300 mg 2 times a day x2 days, then start the pregabalin 50 mg 2 times a day x3 days, then increase to 50 mg x 3 days and we can certainly titrate this quicker but we will check in at that point in time. Did encourage her to continue to use something at bedtime given the severity of her pain and impact on sleep, she requested a refill on tramadol versus the oxycodone, will discontinue the oxycodone tramadol 50 mg refilled for bedtime use. 3. Radiation dermatitis. Wound is healed, skin is quite delicate, she is keeping it moist but no further signs or symptoms of infection and her lymphedema has reabsorbed. 4. Status post right hip replacement. Patient's foot drag has improved, she is doing well with home health PT. She is becoming more independent, but still needs some assistance yet with bathing and has hip precautions still in place. She continues with fatigue, and deconditioning, she does understand with counseling it will take her some time to improve overall given she has had about a year of being incapacitated with that hip. 5. Depression. Patient is trying to keep to her routine, she had gotten off to good start with her sister. She has had some anorexia so not eating as well on a schedule, she does feel like her mood has remained elevated. She is currently on sertraline 150 mg daily, will continue to monitor. She remains quite bright and easily engaged 6. Anti-coag therapy. Patient is quite stridents she is planning to finish her warfarin. She does not perceive herself at risk, though she does have a diagno sis of breast cancer. She is willing to entertain alternative anti-coag, will follow-up with oncology if Eliquis is an option. Time Spent: 60 minutes with getting 50% of this done in counseling regarding pain and symptom management, depression, goals of care and anticipatory guidance
== END 2019-07-31 12:57 | disposition home or self-care (01) ==
LOC: PC 12:56
PROVIDERS: ATTEND Nurse Practitioner Adult Health
DX: Z51.5 Encounter for palliative care (principal); G62.0 Drug-induced polyneuropathy; T45.1X5A Adverse effect of antineoplastic and immunosuppressive drugs, initial encounter; L59.8 Other specified disorders of the skin and subcutaneous tissue related to radiation; Y84.2 Radiological procedure and radiotherapy as the cause of abnormal reaction of the patient, or of later complication, without mention of misadventure at the time of the procedure; F32.9 Major depressive disorder, single episode, unspecified; E11.42 Type 2 diabetes mellitus with diabetic polyneuropathy; I74.9 Embolism and thrombosis of unspecified artery; C50.912 Malignant neoplasm of unspecified site of left female breast; Z79.84 Long term (current) use of oral hypoglycemic drugs; Z79.899 Other long term (current) drug therapy; Z79.01 Long term (current) use of anticoagulants; Z72.820 Sleep deprivation; Z59.8 Other problems related to housing and economic circumstances; Z96.641 Presence of right artificial hip joint
CPT/HCPCS: 99215

== ENCOUNTER 2019-08-14 10:44 | Outpatient (CLI) | payer MEDICAID | END 2019-08-14 10:45 | disposition home or self-care (01) | LOC: LAB 10:44 | PROVIDERS: ATTEND Family Medicine | DX: D68.59 Other primary thrombophilia (principal) | CPT/HCPCS: 85610 ==

== ENCOUNTER 2019-08-14 11:25 | Outpatient (CLI) | payer MEDICAID ==
--- NOTE | 2019-08-14 17:18 | CONSULTATION NOTE ---
Palliative Care Follow Up - Referral Referring Provider: Dr. Lopez Time of Visit: [id number] [place] [facility] [place] Reason: CIPN/Depression/Breast CA - Information Sources Records reviewed: Previous records reviewed History/Review of Systems obtained from: Patient Exam limitations: No limitations - History of Present Illness Update Brief HPI Update: This is a 64-year-old woman with left breast infiltrating ductal carcinoma, clinical stage T2N1 stage IIb. She is status post bilateral mastectomy, left axillary lymph node dissection and left wall radiation. She has had a complicated course, with multiple complications. She has been on hold from her Kadcyla because of worsening peripheral neuropathy, she did meet with oncology today, and they are getting give her Herceptin. She is also been on multiple hormonal treatments and unable to tolerate any of the side effects, they are going to trial tamoxifen. Patient recently had her right hip Placement surgery 06/25/2019, it too had some complications. Her foot drag is resolving, though now she is developing some back pain, most likely attributed to her change in posture. Unfortunately she has long-term chronic back pain and back surgeries. It is centralized in the lower lumbar area. She is now ambulating with a cane, she is completing home physical therapy, and continues to struggle with balance. This is both related to strength as well as her neuropathy. She also presents today with three 1 cm areas of open shallow exposed moist ski n. Her skin is very friable, and appears to have most likely stretched and cracked. They have not been healing, she has left them open to air, she is quite frustrated. Patient's has had escalating neuropathy, still fairly severe particularly at bedtime. We did switch her over from gabapentin to pregabalin, she has tolerated this better with less side effects. She is not feeling oversedated, a nd is willing to try titrating up to improve her comfort. Social History - Living Situation Living arrangement: At home Living Situation: Alone Support System: Patient does live alone, she currently has a [employer] worker, related to her declining functional status. She is hoping at some point do not need increased assistance. Both her daughter and [place]. She is still hoping at some point to return to some work left, she is almost finished with home health support. Medications/Allergies - Medications Home Medications: Ambulatory Orders Medication Instructions Recorded Confirmed Sertraline HCl 150 mg PO DAILY 06/27/18 08/14/19 Simvastatin 20 mg PO QPM 06/27/18 08/14/19 metFORMIN [Glucophage] 500 mg PO BIDWM 06/27/18 08/14/19 Cholecalciferol (Vitamin D3) 2,000 unit PO DAILY 05/10/19 08/14/19 [Vitamin D3] Metoprolol Tartrate 50 mg PO DAILY 05/10/19 08/14/19 Multivitamin [Multivitamins] 1 tab PO DAILY 05/10/19 08/14/19 Valsartan 80 mg PO DAILY 05/10/19 08/14/19 Vitamin B Complex/Folic Acid 1 tab PO DAILY 05/10/19 08/14/19 [Vitamin B Complex Tablet] traMADol [Ultram] 50 mg PO PRN PRN 06/19/19 08/14/19 Warfarin Sodium 7.5 mg PO DAILY MDD switching to 07/05/19 08/14/19 eliquis Capsaicin/Me-Salicylate/Menth 1 applic TOP TID PRN 07/31/19 08/14/19 [Dendracin Lotion] Pregabalin 100 mg PO TID 07/31/19 08/14/19 Melatonin 3 mg PO QPM PRN 08/14/19 08/14/19 - Allergies Allergies/Adverse Reactions: Allergies Allergy/AdvReac Type Severity Reaction Status Date / Time hydroxyzine Allergy Itching Verified 08/14/19 11:15 lorazepam Allergy Emesis Verified 08/14/19 11:15 meclizine Allergy Emesis Verified 08/14/19 11:15 codeine AdvReac Nausea Verified 08/14/19 11:15 gabapentin AdvReac Dizziness Verified 08/14/19 18:42 silver AdvReac Rash Verified 08/14/19 11:15 [From Tegaderm AG Mesh] Review of Systems - Constitutional Constitutional: reports: Fatigue, Weight stable. denies: Fever (resovled with stopping gabapentin) - Eyes Eyes: reports: Vision loss, Corrective lenses - Ears, Nose & Throat Ears, Nose & Throat: reports: Dry mouth - Cardiovascular Cardiovascular: reports: Decr. exercise tolerance. denies: Edema - Respiratory Respiratory: denies: SOB at rest - Gastrointestinal Gastrointestinal: reports: Good appetite. denies: Constipation, Nausea - Musculoskeletal Musculoskeletal: reports: Back pain (worsening; concerned hx of back pain/ surgery), Stiffness, Muscle weakness, Assistive devices (cane) - Integumentary Integumentary: reports: Dryness, Other (open areas returned in radition dermatitis area) - Neurological Neurological: reports: General weakness - Psychiatric Psychiatric: reports: Depression, Anxiety - Endocrine Endocrine: reports: Diabetes type 2 - Hematologic/Lymphatic Hematologic/Lymphatic: reports: Blood clots (hx). denies: Recurrent infections - All Other Systems All Other Systems: reports: Reviewed and negative Physical Exam - Physical Exam General Appearance: positive: No acute distress, Alert Eyes Bilateral: positive: Normal inspection ENT: positive: No signs of dehydration Neck: positive: Trachea midline Cardiovascular: positive: Regular rate & rhythm Respiratory: positive: No respiratory distress Palliative Care - POLST Patient has POLST: No POLST Status: Full Code Pain: Pain worsening, Location (She is currently on pregabalin 50 mg 3 times daily, she is also has available tramadol 50 mg if needed as needed pain, she has not used any for couple weeks now. Her pain is multifactorial, including her peripheral neuropathy, now she is complaining of increased back pain and discomfort, and hoping this will be resolved. Her right hip pain is much improved.) Tiredness/Fatigue: Moderate (4-6) Drowsiness/Sedation: Mild (1-3) Nausea: None Anorexia: None Dyspnea: Mild (1-3) Depression: Mild (1-3) Anxiety: Moderate (4-6) (with new changes in medication) Feelings of wellbeing/Perceived Quality of Life: Fair, Acceptable, Improved Sleep: Variable sleep pattern Constipation: Yes, Managed Performance Status: She is doing more for herself, she is ambulating short distances. She has been deconditioned over a year not only with her hip but also her prolonged journey with her breast cancer. She reports her orthopedist is not keen on outpatient physical therapy, reports with hip she just need to walk. 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 She will consider and talk to her home health PT regarding this. - Palliative Care Discussion: Patient relieved to finally talk to her primary oncologist, she reports "I am so done", she is less than enthusiastic about her upcoming treatment. She is hoping for the best. If she does go on tamoxifen, she understands high risk for blood clots and would need to continue on an anticoagulant. She absolutely does not want to do the warfarin, she has been on Eliquis before, Dr. Lopez has written RX for eliquis. She will follow-up with her PCP and discontinuing the warfarin and switching over. She is asking appropriate questions about weighing benefits and burdens of moving forward, recognizing quality of life weighing it over quantity of life if continues to have side effects. Results - Lab Results Lab results reviewed: Yes Impression and Recommendations - Palliative Care Impression: This is a 64-year-old woman with left breast infiltrating ductal carcinoma will be continuing with treatment with Herceptin, and possibly adding tamoxifen. Patient continues to struggle with CI PN, will continue to titrate pregabalin to affect. Patient with recurrent issues regarding her radiation dermatitis, insomnia, and now concern regarding back pain. Palliative care continue provide support with focus on quality of life issues and anticipatory guidance. Recommendations/Counseling Done: 1. Chemotherapy-induced peripheral neuropathy. This is multifactorial, she does have diabetes as well. Her blood sugars have been running elevated, etiology is thought to be from previous chemotherapy, worsening with Kadcyla. She is quite concerned that Herceptin will add to her problem. But she is willing to give it a try. She did do better switching from gabapentin to pregabalin, with decreased side effects. We did do a straight across equal analgesia, given she is tolerating we can titrated up. Instructions were given to initiate 100 mg at bedtime for 3 days, and 50 in the a.m. for 3 days and then go to 100 3 times daily. She will call or let me know if she tolerates this and if improvement, she can titrate up to 450 mg total. 2. Radiation dermatitis. Unfortunately his wound only remained healed for about a week and a half, skin is quite fragile, suspect with scarring tissue was pulled apart. Instructed after consult with wound nurse, apply Silvadene and keep areas moist and cover with cotton T-shirt. 3. Status post right hip placement. Patient is ambulatory, currently using a cane, is able to bend a little bit more. She still has significant deconditioning. Counseling provided regarding benefit of possibly continuing with therapy outpatient, more with the focus on core strengthening, supporting and addressing her back pain, and progressing her endurance. She will follow-up with her home health PT, and let me know if she wants an order for outpatient PT or can contact her primary care. 4. Depression. Patient is doing better keeping her routine, she is getting up in the morning, sleeping less during the day, engaging in activities that bring her nisreen, including a little bit of gardening. She has having trouble sleeping at night, this is more related to her pain mostly. Did introduce could trial some trazodone, she has been on it in the past. We will start with melatonin 3 mg at bedtime as patient is tired of all "the pills". 5. Anticoagulant therapy. Patient will switch to Eliquis, she is going to wait till she gets her prescription, follow-up with PCP in completing her warfarin. Time Spent: 50 minutes with greater than 50% of this done in counseling regarding pain and symptom management, processing depression and anxiety related to new treatment plan, and coordination of care with [facility]
== END 2019-08-14 11:26 | disposition home or self-care (01) ==
LOC: PC 11:25
PROVIDERS: ATTEND Nurse Practitioner Adult Health
DX: Z51.5 Encounter for palliative care (principal); G62.0 Drug-induced polyneuropathy; T45.1X5A Adverse effect of antineoplastic and immunosuppressive drugs, initial encounter; L59.8 Other specified disorders of the skin and subcutaneous tissue related to radiation; Y84.2 Radiological procedure and radiotherapy as the cause of abnormal reaction of the patient, or of later complication, without mention of misadventure at the time of the procedure; F32.9 Major depressive disorder, single episode, unspecified; E11.42 Type 2 diabetes mellitus with diabetic polyneuropathy; K59.00 Constipation, unspecified; C50.912 Malignant neoplasm of unspecified site of left female breast; G89.29 Other chronic pain; Z79.899 Other long term (current) drug therapy; Z79.01 Long term (current) use of anticoagulants; Z79.84 Long term (current) use of oral hypoglycemic drugs; Z86.718 Personal history of other venous thrombosis and embolism; Z96.641 Presence of right artificial hip joint
CPT/HCPCS: 99215

== ENCOUNTER 2019-09-04 10:12 | Outpatient (CLI) | payer MEDICAID ==
--- NOTE | 2019-09-04 13:42 | CONSULTATION NOTE ---
Palliative Care Follow Up - Referral Referring Provider: Dr. Harika Lopez Time of Visit: [id number] Referral setting: [facility] [place] Referral Reason: CIPN/acute on chronic pain/radiation dermititis - Information Sources Records reviewed: Previous records reviewed History/Review of Systems obtained from: Patient Exam limitations: No limitations - History of Present Illness Update Brief HPI Update: This is a 64-year-old woman with left breast infiltrating ductal carcinoma, clinical stage T2N1 stage IIb. She is status post bilateral mastectomy, left axillary lymph node dissection and left wall radiation. She has had a complicated course with multiple complications related to her chemotherapy, as well as her radiation dermatitis. She has been on multiple hormonal treatments and unable to tolerate any side effects, she has gotten a prescription today for tamoxifen, and is somewhat anxious about yet another new medication. Patient continues on her Eliquis, she understands she needs to be on this lifelong which she is not happy about. Palliative care is seeing patient for management pain and symptom management. Patient continues with CI PN, she reports improved control with the pregabalin up to 100 mg 3 times daily. She is tolerating this without increased side effects. This is for her pain in her hands and feet, the numbness and uncomfortable sensations persist. She is disappointed, though has a result of most likely her right hip surgery, and correction of her unstable gait and increased activity. She is having more difficulty with her osteoarthritic pain. She reports her previous spinal surgeries, at L4-L5, she has a persistent ache there. She has not had any pain since her original surgery in 2018, she is concerned. She is also having increased bilateral pain in her knees, she has had injections in the past, and is thinking about following up with this. She has been told both by myself and her oncologist that an NSAID with her blood thinner is not recommended. She has been using tramadol, about 1 time a day, and rest with mild relief. Patient feels her depression is currently controlled, though she is quite distressed with the COVID-19 restrictions, she is able to go out in the garden and doing some puttering. She feels this is helped with her depressive mood.She does have a goal to go to [place] for her brother's 50th anniversary in October 2019. She is hoping she can travel at that point in time. Her other underlying problem is her up, though is very thin and fragile, has reopened 2 times now. She still has a persistent opening, we discussed given her fragility of her skin and very little progress, would recommend follow-up with her plastic surgeon. She may need a flap. She will also go back to her Xeroform dressing under the Mepilex, to had some moisture to the wound bed. Social History - Living Situation Living arrangement: At home Living Situation: Alone Support System: Patient lives alone, she [place] 2 [place]. She does have a [place] [employer] worker, who is still providing support particular around shopping, as well as household support. She thinks she has a reevaluation coming in October, at this point time she is still unable to do all her IADLs, and does need some supervision for bathing.She was hoping to return to work at some point in time, currently that is not a option, finances still continue to be significantly stressful for her. Medications/Allergies - Medications Home Medications: Ambulatory Orders Medication Instructions Recorded Confirmed Sertraline HCl 150 mg PO DAILY 06/27/18 09/04/19 Simvastatin 20 mg PO QPM 06/27/18 09/04/19 metFORMIN [Glucophage] 500 mg PO BIDWM 06/27/18 09/04/19 Cholecalciferol (Vitamin D3) 2,000 unit PO DAILY 05/10/19 09/04/19 [Vitamin D3] Metoprolol Tartrate 50 mg PO DAILY 05/10/19 09/04/19 Multivitamin [Multivitamins] 1 tab PO DAILY 05/10/19 09/04/19 Valsartan 80 mg PO DAILY 05/10/19 09/04/19 Vitamin B Complex/Folic Acid 1 tab PO DAILY 05/10/19 09/04/19 [Vitamin B Complex Tablet] traMADol [Ultram] 50 mg PO PRN PRN 06/19/19 09/04/19 Capsaicin/Me-Salicylate/Menth 1 applic TOP TID PRN 07/31/19 09/04/19 [Dendracin Lotion] Pregabalin 100 mg PO TID 07/31/19 09/04/19 Melatonin 3 mg PO QPM PRN 08/14/19 09/04/19 Apixaban [Eliquis] 2.5 mg PO BID 09/04/19 09/04/19 - Allergies Allergies/Adverse Reactions: Allergies Allergy/AdvReac Type Severity Reaction Status Date / Time hydroxyzine Allergy Itching Verified 09/04/19 11:25 lorazepam Allergy Emesis Verified 09/04/19 11:25 meclizine Allergy Emesis Verified 09/04/19 11:25 codeine AdvReac Nausea Verified 09/04/19 11:25 gabapentin AdvReac Dizziness Verified 09/04/19 11:25 silver AdvReac Rash Verified 09/04/19 11:25 [From Greetz AG Mesh] Review of Systems - Constitutional Constitutional: reports: Fatigue, Weight stable (gained 5 pounds) - Eyes Eyes: reports: Vision loss, Corrective lenses - Cardiovascular Cardiovascular: reports: Decr. exercise tolerance. denies: Chest pain, Edema - Respiratory Respiratory: denies: SOB at rest, SOB with exertion - Gastrointestinal Gastrointestinal: reports: Good appetite. denies: Constipation (using prunies), Nausea - Musculoskeletal Musculoskeletal: reports: Back pain (worsening; hx of spinal surgeries), Stiffness, Limited range of motion, Muscle weakness, Joint pain (increase bilate ral knee pain;), Assistive devices (using cance) - Integumentary Integumentary: reports: Other (still open area of radiation dermatitis) - Neurological Neurological: reports: General weakness. denies: Headache - Psychiatric Psychiatric: reports: Depression (controlled), Anxiety (worried about pending new medication) - Endocrine Endocrine: reports: Diabetes type 2 (not checking BS) - Hematologic/Lymphatic Hematologic/Lymphatic: reports: Anemia (10.5), Blood clots (hx now on eliquis). denies: Recurrent infections - All Other Systems All Other Systems: reports: Reviewed and negative Physical Exam - Vital Signs Pulse Rate: 60 Respiratory Rate: 18 Blood Pressure: 119/58 - Physical Exam General Appearance: positive: No acute distress, Alert Eyes Bilateral: positive: Normal inspection ENT: positive: No signs of dehydration Neck: positive: Trachea midline Respiratory: positive: No respiratory distress Abdomen: positive: Soft, Obese Skin: positive: Pallor, Wound (open three areas of left breast: moist shallow/full area about 2 x 3 inches. skin very thinned and no s/s infection but in field of fragile scar tissue) Extremities: positive: No pedal edema Neurologic/Psychiatric: positive: Oriented x3, Mood/affect nml, Weakness Palliative Care - POLST Patient has POLST: No POLST Status: Full Code Pain: Pain worsening, Location Tiredness/Fatigue: Moderate (4-6) Drowsiness/Sedation: Mild (1-3) Nausea: None Anorexia: None Dyspnea: None Depression: Mild (1-3) Anxiety: Mild (1-3) Feelings of wellbeing/Perceived Quality of Life: Fair, Acceptable, Improved Sleep: Variable sleep pattern (Try melatonin, she is to 5 mg Gummies, found that she had a "hangover" effect into the next day. We discussed given the context of her poor medication tolerance, I had really recommended 3 mg, she could try half a gummie if she wanted to try it again.) Constipation: Yes, Opoid induced, Managed Performance Status: Patient is ambulatory now with a cane, though reports she has having increased difficulty with walking secondary to pain in her knees bilaterally. She reports the pain builds to the day, as well as her back pain. She does understand she is got significant deconditioning given the length of time that she has been in active and sedentary with her hip pain, and cancer treatment. She is interested in following up with outpatient PT, and would be able to drive herself at this point. She is finishing up with home health, has maximized any benefit from home health PT at this point. - Palliative Care Discussion: Patient is still moving forward with supporting her cancer diagnosis, she is can be trying the tamoxifen, she is quite anxious about side effects. She will finish up with her Herceptin. She does have a echo pending. She has tried to put this all behind them, as far as all the complications she has had a long way. And is hoping to return at some point to some kind of normalcy. Results - Lab Results Lab results reviewed: Yes Impression and Recommendations - Palliative Care Impression: This 64-year-old woman with left breast infiltrating ductal carcinoma, will be continue with treatment with Herceptin, and expected to add tamoxifen. She continues to struggle with CI PN, has had some improvement with increase in pregabalin, and now is experiencing exacerbation in her osteoarthritic pain, including low back and bilateral knee pain. Patient continues with radiation dermatitis, have recommended follow-up with plastic surgeon. Palliative care continue provide support with focus on quality of life issues and anticipatory guidance. Recommendations/Counseling Done: 1. Chemotherapy-induced peripheral neuropathy. This is multifactorial, she does have underlying diabetes. She does not track this. She has done better on pregabalin, we have Titrated it up to 100 mg 3 times daily, she does feel like this is made a difference. She still has some of the numbness alteration in sensation, but the pain can component has improved.Did discuss there is a possibility of increasing to 150 3 times daily, but would like to remain at current dosing if possible. She is in agreement to continue and monitor for side effects or efficacy. 2. Radiation dermatitis. Unfortunately the skin remains quite fragile, with the scarring tissue pulling apart. Did instruct to restart the Xeroform under the Mepilex, she still has home health but feels like she cannot do this given the surface area by herself. She does have a consult to plastic surgeon, she does not know if she would do reconstruction, we discussed to go ahead and follow through on this that she may need a skin flap for healing. 3. Osteoarthritic pain, multiple joints. She has in the past use Dr. Ag, [facility], for knee injections with cortisone injections as well as supportive care of Synvisc by report. Recommended given when able to use an NSAID with her Eliquis, she follow-up and see what her further options would be. She is using the tramadol 50 mg in late afternoon but the fact, recommended she continue using this to maximize her functional status. 4. Conditioning. This is multifactorial, patient though still complains of increased weakness, would benefit from outpatient physical therapy, for endurance building, pain control, as well as progressing strength building. She has had treatments before at [facility], and is in agreement to send off referral. 5. Depression. Patient able to express her concerns and fears, does appear she is managing to keep her routine, getting outside, reports her depression is currently well controlled. She is hoping able to travel this summer, and is looking forward to being done with her cancer treatment. Though she does understand long-term she will need to be monitored and continue on hormone treatments. Time Spent: 45 minutes with greater than 50% of this done in counseling regarding pain and symptom management, recommendations for coordination of care, and referral to outpatient physical therapy.
== END 2019-09-04 10:13 | disposition home or self-care (01) ==
LOC: PC 10:12
PROVIDERS: ATTEND Nurse Practitioner Adult Health
DX: Z51.5 Encounter for palliative care (principal); G62.0 Drug-induced polyneuropathy; T45.1X5D Adverse effect of antineoplastic and immunosuppressive drugs, subsequent encounter; L59.8 Other specified disorders of the skin and subcutaneous tissue related to radiation; Y84.2 Radiological procedure and radiotherapy as the cause of abnormal reaction of the patient, or of later complication, without mention of misadventure at the time of the procedure; F32.9 Major depressive disorder, single episode, unspecified; R53.1 Weakness; G89.29 Other chronic pain; M17.0 Bilateral primary osteoarthritis of knee; K59.03 Drug induced constipation; T40.2X5D Adverse effect of other opioids, subsequent encounter; C50.912 Malignant neoplasm of unspecified site of left female breast; Z79.891 Long term (current) use of opiate analgesic; Z79.899 Other long term (current) drug therapy; Z79.01 Long term (current) use of anticoagulants; Z86.718 Personal history of other venous thrombosis and embolism
CPT/HCPCS: 99215

== ENCOUNTER 2019-09-06 07:35 | Outpatient (CLI) | payer MEDICAID | END 2019-09-06 07:36 | disposition home or self-care (01) | LOC: DI 07:35 | PROVIDERS: ATTEND Internal Medicine Hematology & Oncology | DX: I51.7 Cardiomegaly (principal); I27.20 Pulmonary hypertension, unspecified; C50.912 Malignant neoplasm of unspecified site of left female breast | CPT/HCPCS: 93306 ==

== ENCOUNTER 2019-09-19 19:04 | Emergency (ER) | payer MEDICAID ==
--- NOTE | 2019-09-19 20:54 | ED Physician Documentation ---
PD HPI URI - Stated complaint Stated Complaint: FEVER,COUGH,LETHARGIC - Chief complaint Chief Complaint: Resp - History obtained from History obtained from: Patient - History of Present Illness Timing - onset: How many weeks ago (1) Timing duration: Weeks (1) Timing details: Gradual onset, Still present Associated symptoms: Fever (mild fever), Chills, Dry cough, Dyspnea. No: Hemoptysis, Chest pain (but feeling of tightness), NVD, Bilateral edema Contributing factors: Immunocompromised. No: Sick contact, Unimmunized, COPD / asthma Improves by: Rest Worsened by: Activity Similar symptoms before: Has not had sx before Recently seen: Clinic (chemotherapy infusion 3 weeks ago.) Review of Systems Constitutional: reports: Fever (the past couple of days), Chills, Myalgias, Fatigue. denies: Weight Loss Nose: reports: Congestion. denies: Rhinorrhea / runny nose Throat: denies: Sore throat Cardiac: denies: Palpitations, Pedal edema, Calf pain Respiratory: reports: Dyspnea, Cough. denies: Hemoptysis GI: reports: Nausea. denies: Vomiting, Diarrhea Skin: denies: Rash Neurologic: reports: Generalized weakness. denies: Focal weakness, Numbness, Near syncope PD PAST MEDICAL HISTORY - Past Medical History Past Medical History: Yes Cardiovascular: Hypertension, High cholesterol, Peripheral Vascular Disease, Murmur Respiratory: Sleep apnea, CPAP use Neuro: Headaches, Peripheral neuropathy, Fainting Endocrine/Autoimmune: Type 2 diabetes GI: GERD, Cholelithiasis LIGHT OUT EXAMINER: Miscarriage(s), Breast cancer : None HEENT: Chronic vision loss, Chronic sinusitis Psych: Anxiety Musculoskeletal: Osteoarthritis Derm: None, Other - Past Surgical History Past Surgical History: Yes Ortho: Spine surgery /LIGHT OUT EXAMINER: Tubal ligation, Other - Present Medications Home Medications: Ambulatory Orders Medication Instructions Recorded Confirmed Sertraline HCl 150 mg PO DAILY 06/27/18 09/19/19 Simvastatin 20 mg PO QPM 06/27/18 09/19/19 metFORMIN [Glucophage] 500 mg PO BIDWM 06/27/18 09/19/19 Cholecalciferol (Vitamin D3) 2,000 unit PO DAILY 05/10/19 09/19/19 [Vitamin D3] Metoprolol Tartrate 50 mg PO DAILY 05/10/19 09/19/19 Multivitamin [Multivitamins] 1 tab PO DAILY 05/10/19 09/19/19 Valsartan 80 mg PO DAILY 05/10/19 09/19/19 Vitamin B Complex/Folic Acid 1 tab PO DAILY 05/10/19 09/19/19 [Vitamin B Complex Tablet] traMADol [Ultram] 50 mg PO PRN PRN 06/19/19 09/19/19 Capsaicin/Me-Salicylate/Menth 1 applic TOP TID PRN 07/31/19 09/19/19 [Dendracin Lotion] Pregabalin 100 mg PO TID 07/31/19 09/19/19 Melatonin 3 mg PO QPM PRN 08/14/19 09/19/19 Apixaban [Eliquis] 2.5 mg PO BID 09/04/19 09/19/19 Albuterol Sulfate [Albuterol 2 puffs IH QID #1 hfa.aer.ad 09/19/19 Sulfate Hfa] Benzonatate [Tessalon Perle] 100 mg PO TID PRN #25 capsule 09/19/19 cefUROXime axetiL [Ceftin] 500 mg PO BID #14 tablet 09/19/19 dexAMETHasone [Decadron] 4 mg PO DAILY #5 tablet 09/19/19 - Allergies Allergies/Adverse Reactions: Allergies Allergy/AdvReac Type Severity Reaction Status Date / Time hydroxyzine Allergy Itching Verified 09/19/19 19:19 lorazepam Allergy Emesis Verified 09/19/19 19:19 meclizine Allergy Emesis Verified 09/19/19 19:19 codeine AdvReac Nausea Verified 09/19/19 19:19 gabapentin AdvReac Dizziness Verified 09/19/19 19:19 silver AdvReac Rash Verified 09/19/19 19:19 [From Tegaderm AG Mesh] - Social History Does the pt smoke?: No Smoking Status: Never smoker Does the pt drink ETOH?: No Does the pt have substance abuse?: No - Immunizations Immunizations are current?: Yes - POLST Patient has POLST: No POLST Status: Full Code PD ED PE NORMAL - Vitals Vital signs reviewed: Yes - General General: Alert and oriented X 3, No acute distress, Well developed/nourished - HEENT HEENT: Moist mucous membranes, Pharynx benign - Neck Neck: Supple, no meningeal sign, No adenopathy - Cardiac Cardiac: RRR, No murmur - Respiratory Respiratory: No: Clear bilaterally (mostly clear but noted exp wheezing with deeper breaths and coughing) - Abdomen Abdomen: Soft, Non tender - Derm Derm: Normal color, Warm and dry - Extremities Extremities: No deformity, No tenderness to palpate, Normal ROM s pain, No edema, No calf tenderness / cord - Neuro Neuro: Alert and oriented X 3, No motor deficit, Normal speech Results - Vitals Vitals: Vital Signs - 24 hr 09/19/19 09/19/19 09/19/19 19:10 19:25 20:41 Temperature 37.2 C Heart Rate 72 70 63 Respiratory 18 16 18 Rate Blood Pressure 131/70 H 135/53 H 117/65 O2 Saturation 96 95 95 09/19/19 09/19/19 09/19/19 21:00 21:56 22:53 Temperature Heart Rate 64 63 64 Respiratory 18 18 18 Rate Blood Pressure 117/65 126/68 O2 Saturation 96 97 09/20/19 00:13 Temperature 36.8 C Heart Rate 68 Respiratory 18 Rate Blood Pressure 115/67 O2 Saturation 99 Oxygen O2 Source Room air - Labs Labs: Laboratory Tests 09/19/19 09/19/19 09/19/19 21:46 21:46 21:46 WBC 4.1 L RBC 4.12 L Hgb 10.9 L Hct 35.8 L MCV 86.9 MCH 26.5 L MCHC 30.4 L RDW 17.4 H Plt Count 145 MPV 11.4 H Neut # (Auto) 2.1 Lymph # (Auto) 1.1 L Hardin # (Auto) 0.9 Eos # (Auto) 0.1 Baso # (Auto) 0.0 Absolute Nucleated RBC 0.00 Nucleated RBC % 0.0 Sodium 142 Potassium 3.9 Chloride 106 Carbon Dioxide 27 Anion Gap 9.0 BUN 24 H Creatinine 0.5 Estimated GFR (MDRD) 124 Glucose 98 Lactic Acid 1.1 Calcium 9.3 Magnesium 1.5 L Total Bilirubin 0.9 AST 37 ALT 24 Alkaline Phosphatase 102 Total Protein 7.5 Albumin 3.7 Globulin 3.8 Albumin/Globulin Ratio 1.0 Lipase 54 H - Rads (name of study) chest xray Radiology: Prelim report reviewed (old scarring/atelectasis left lower lung; no acute infiltrates), See rad report PD MEDICAL DECISION MAKING - ED course Complexity details: reviewed results (Seemed prolonged ED stay getting CXR and subsequent Radiology reading. Old scarring/atelectasis noted. No acute infiltrates. ), re-evaluated patient (improved breaths with Albuterol MDI, kezia aguilar got some mild frontal headache from it. ), considered differential, d/w patient Departure - Departure Disposition: 01 Home, Self Care Clinical Impression: Lower respiratory infection Dyspnea Qualifiers: Dyspnea type: shortness of breath Qualified Code(s): R06.02 - Shortness of breath Condition: Stable Record reviewed to determine appropriate education?: Yes Instructions: ED Upper Resp Infec Abx Tx Follow-Up: MCKENNA WOMACK MD [Primary Care Provider] - Filemon Lopez MD [Provider Admit Priv/Credential] - Prescriptions: Albuterol Sulfate [Albuterol Sulfate Hfa] 2 puffs IH QID #1 hfa.aer.ad Benzonatate [Tessalon Perle] 100 mg PO TID PRN #25 capsule PRN Reason: Cough cefUROXime axetiL [Ceftin] 500 mg PO BID #14 tablet dexAMETHasone [Decadron] 4 mg PO DAILY #5 tablet Comments: Use the albuterol inhaler 2 to 3 puffs 4 times a day for the next several days to week. Tylenol if needed for headache or pains. Decadron steroid for inflammation daily for the next 5 days. Add benzonatate if needed for cough. Ceftin antibiotic for possible bacterial infection. Our COVID test should result tomorrow and will call you with the result. Call us late afternoon if you have not heard results. Discharge Date/Time: 09/20/19 00:15
[2019-09-19] MEDS ORDERED: ALBUTEROL 1 PUFF INH STA (21:34)
[2019-09-19] MEDS ORDERED: DEXAMETHASONE 10 MG/ML VIAL PO STA (21:35)
[2019-09-19] MEDS ORDERED: CHERRY SYRUP 10 ML UDC PO ONE (21:35)
[2019-09-19] MEDS ORDERED: BENZONATATE 100 MG CAPSULE PO STA (21:35)
[2019-09-19 21:52] LABS: BASOPHILS % (AUTO) 0.7 %; EOSINOPHILS # (AUTO) 0.1 10^3/uL (0.0-0.7); EOSINOPHILS % (AUTO) 1.7 %; HGB - HEMOGLOBIN 10.9 g/dL (12.0-16.0); LYMPHOCYTES # (AUTO) 1.1 10^3/uL (1.5-3.5); MEAN CORPUSCULAR HEMOGLOBIN 26.5 pg (27.0-31.0); MEAN CORPUSCULAR HGB CONC 30.4 g/dL (32.0-36.0); MEAN CORPUSCULAR VOLUME 86.9 fL (81.0-99.0); MEAN PLATELET VOLUME 11.4 fL (7.9-10.8); MONOCYTES # (AUTO) 0.9 10^3/uL (0.0-1.0); MONOCYTES % (AUTO) 21.2 %; NEUTROPHILS # (AUTO) 2.1 10^3/uL (1.5-6.6); NEUTROPHILS % (AUTO) 50.2 %; PLT - PLATELET COUNT 145 10^3/uL (130-450); RED BLOOD COUNT 4.12 10^6/uL (4.20-5.40); RED CELL DISTRIBUTION WIDTH 17.4 % (12.0-15.0); WHITE BLOOD COUNT 4.1 x10^3/uL (4.8-10.8)
[2019-09-19 22:05] LABS: ALBUMIN 3.7 g/dL (3.2-5.5); BILIRUBIN,TOTAL 0.9 mg/dL (0.2-1.0); CALCIUM 9.3 mg/dL (8.5-10.3); CREATININE 0.5 mg/dL (0.4-1.0); MAGNESIUM 1.5 mg/dL (1.7-2.8); TOTAL PROTEIN 7.5 g/dL (6.7-8.2)
[2019-09-19] MEDS ORDERED: ACETAMINOPHEN 325 MG TABLET PO STA (23:52)
[2019-09-20 00:15] VITALS: BP 115/67
--- NOTE | 2019-09-20 08:15 | XRAY Report ---
Reason: dyspnea/ cough Procedure Date: 09/19/2019 Accession Number: [id number] / [id number] Procedure: XR - Chest 2 View X-Ray CPT Code: 33905 Final Report FULL RESULT: PROCEDURE: Chest 2 View X-Ray INDICATIONS: dyspnea/ cough TECHNIQUE: 2 view(s) of the chest. COMPARISON: Chest radiograph dated 12/04/[address] of chest dated 05/14/2019. FINDINGS: Surgical changes and devices: None. Lungs and pleura: No pleural effusions or pneumothorax. Atelectasis/small infiltrate in left upper lobe along the oblique fissure is seen. Chronic appearing pleural thickening along lateral aspect of left lingular segment is also noted. Right lung is clear. Mediastinum: Mediastinal contours are normal. Heart size is normal. Bones and chest wall: No suspicious bony abnormalities. Soft tissues appear unremarkable. IMPRESSION: Suggestion of scarring/atelectasis in left upper lobe, underlying small infiltrate cannot be entirely excluded. Mild pleural thickening along lateral aspect of left lingular segment. No pleural effusion or pneumothorax. Right lung is clear. Reviewed by: Artie Strauss MD on 09/20/2019 8:13 AM PDT Approved by: Artie Strauss MD on 09/20/2019 8:13 AM PDT Station ID: [id number]
== END 2019-09-20 00:15 | disposition home or self-care (01) ==
LOC: ED 19:04
DX: J22 Unspecified acute lower respiratory infection (principal); J98.11 Atelectasis; Z20.828 Contact with and (suspected) exposure to other viral communicable diseases; I10 Essential (primary) hypertension; E11.42 Type 2 diabetes mellitus with diabetic polyneuropathy; E11.51 Type 2 diabetes mellitus with diabetic peripheral angiopathy without gangrene; Z79.84 Long term (current) use of oral hypoglycemic drugs; Z79.01 Long term (current) use of anticoagulants
CPT/HCPCS: 36415; 71046; 80053; 83605; 83690; 83735; 85025; 87635; 94640; 94664; 99283; 99284; A9270; 81599

== ENCOUNTER 2019-09-25 11:09 | Outpatient (CLI) | payer MEDICAID ==
--- NOTE | 2019-09-25 17:10 | CONSULTATION NOTE ---
Palliative Care Follow Up - Referral Referring Provider: Dr. Harika Lopez Time of Visit: [id number] Referral setting: MAC Referral Reason: CIPN/Depression/Breast CA - Information Sources Records reviewed: RN notes reviewed, Previous records reviewed History/Review of Systems obtained from: Patient Exam limitations: No limitations - History of Present Illness Update Brief HPI Update: This is a 64-year-old woman with left breast infiltrating ductal carcinoma, clinical stage T2N1 stage IIb. She is status post bilateral mastectomy, left axillary lymph node dissection and left wall radiation. She has had a complicated course with multiple complications related to her chemotherapy, as well as her radiation dermatitis. She has been on multiple hormonal treatments and unable to tolerate any side effects, she has decided not to take tamoxifen is going to retry anastrozole. She remains quite distressed at all the side effects, and complications she has experienced. Palliative care is seeing patient for management of pain and symptom management. Patient did call last week with this symptoms of cough, fever, and concern for COVID-19. She was directed to her PCP, who then directed her to the ED. She did just finish her antibiotics, she was COVID-19 negative, and her cough is resolved. She does feel the pregabalin at 100 mg 3 times daily, is managing her peripheral neuropathy much better, she has not needed any tramadol for breakthrough pain. She has started her outpatient physical therapy, her knees are little bit better, she does have an appointment pending with her Ortho, to consider injections for her knees. Her hip is doing well, and is starting to be able to ambulate longer distances. She still has small open area on her left chest, this is very thin and healing tissue, tends to free traumatized with movement. We did discuss in the context of this she may need a flap in the and. She has not made her appointment the plastic surgeon yet, did encourage him follow through with this. Patient is hoping to be able to travel to [place], for her brother's 50th anniversary. She has 8 siblings, and it would be somewhat of a family reunion, she missed her family gathering last year because of her cancer treatment. She knows this may not be possible, but is looking forward to it. Patient's past medical history includes hypertension, Diabetes type 2, osteoarthritis, history of a blood clot, peripheral vascular disease, sleep apnea with CPAP use, GERD, and spinal surgery with complications. Social History - Living Situation Living arrangement: At home Living Situation: Alone Support System: Lives alone, is been more able to participate in household activities. She still has a [employer] worker who does continue to provide support around shopping and household support. She does have a reevaluation coming in October. She does still needs supervision for bathing. She does hope to return to some kind of work in the future, is increasing her activity outside. [place] 2 [place]. Medications/Allergies - Medications Home Medications: Ambulatory Orders Medication Instructions Recorded Confirmed Sertraline HCl 150 mg PO DAILY 06/27/18 09/26/19 Simvastatin 20 mg PO QPM 06/27/18 09/26/19 metFORMIN [Glucophage] 500 mg PO BIDWM 06/27/18 09/26/19 Cholecalciferol (Vitamin D3) 2,000 unit PO DAILY 05/10/19 09/26/19 [Vitamin D3] Metoprolol Tartrate 50 mg PO DAILY 05/10/19 09/26/19 Multivitamin [Multivitamins] 1 tab PO DAILY 05/10/19 09/26/19 Valsartan 80 mg PO DAILY 05/10/19 09/26/19 Vitamin B Complex/Folic Acid 1 tab PO DAILY 05/10/19 09/26/19 [Vitamin B Complex Tablet] traMADol [Ultram] 50 mg PO PRN PRN 06/19/19 09/26/19 Pregabalin 100 mg PO TID 07/31/19 09/26/19 Melatonin 3 mg PO QPM PRN 08/14/19 09/26/19 Apixaban [Eliquis] 2.5 mg PO BID 09/04/19 09/26/19 Albuterol Sulfate [Albuterol 2 puffs IH QID #1 [id number] 09/19/19 09/26/19 Sulfate Hfa] Anastrozole 1 mg PO DAILY 09/26/19 09/26/19 - Allergies Allergies/Adverse Reactions: Allergies Allergy/AdvReac Type Severity Reaction Status Date / Time hydroxyzine Allergy Itching Verified 09/25/19 11:39 lorazepam Allergy Emesis Verified 09/25/19 11:39 meclizine Allergy Emesis Verified 09/25/19 11:39 codeine AdvReac Nausea Verified 09/25/19 11:39 gabapentin AdvReac Dizziness Verified 09/25/19 11:39 silver AdvReac Rash Verified 09/25/19 11:39 [From [employer] Mesh] Review of Systems - Constitutional Constitutional: reports: Fatigue (improved), Weight stable. denies: Fever, Chills - Eyes Eyes: reports: Vision loss, Corrective lenses - Ears, Nose & Throat Ears, Nose & Throat: reports: Nasal congestion (improved), Sore throat (improved), Dry mouth - Cardiovascular Cardiovascular: reports: Decr. exercise tolerance. denies: Chest pain, Edema - Respiratory Respiratory: reports: SOB with exertion. denies: Cough, Wheezing, SOB at rest - Gastrointestinal Gastrointestinal: reports: Early satiety. denies: Constipation, Diarrhea, Nausea - Musculoskeletal Musculoskeletal: reports: Muscle pain, Back pain, Muscle aches, Stiffness, Limited range of motion, Muscle weakness, Joint pain, Assistive devices - Integumentary Integumentary: reports: Dryness, Other (radiation dermatisis left chest wall) - Neurological Neurological: reports: General weakness, Numbness - Psychiatric Psychiatric: reports: Depression, Anxiety - Endocrine Endocrine: reports: Diabetes type 2, Hypothyroidism - Hematologic/Lymphatic Hematologic/Lymphatic: reports: Recurrent infections (tx for bronchitis; negative COVID) - All Other Systems All Other Systems: reports: Reviewed and negative Physical Exam - Vital Signs Pulse Rate: 56 Respiratory Rate: 18 Blood Pressure: 124/76 - Physical Exam General Appearance: positive: No acute distress, Alert Eyes Bilateral: positive: Normal inspection ENT: positive: No signs of dehydration Neck: positive: Trachea midline Cardiovascular: positive: Regular rate & rhythm Respiratory: positive: No respiratory distress Abdomen: positive: Soft, Obese Skin: positive: Pallor, Dryness Extremities: positive: No pedal edema Neurologic/Psychiatric: positive: Oriented x3, Mood/affect nml, Flat affect Palliative Care - POLST Patient has POLST: No POLST Status: Full Code Pain: Pain improved, Severity (06/18 see HPI; Patient currently on pregabalin 100 mg 3 times daily, intermittent and rare use of tramadol for breakthrough pain.) Tiredness/Fatigue: Moderate (4-6) Drowsiness/Sedation: Mild (1-3) Nausea: None Anorexia: None Dyspnea: Mild (1-3) Depression: Mild (1-3) Anxiety: Mild (1-3) Feelings of wellbeing/Perceived Quality of Life: Good, Acceptable, Improved Sleep: Sleeps well Constipation: No Performance Status: Patient still presents with deconditioning and decreased quad strength, this is attributed to her long period of disability with her right hip. She is working with physical therapy, is hopeful for improvement. She is able to manage her ADLs, though does need supervision for bathing. She still needs some assistance with IADLs but is improving on a regular basis. - Palliative Care Discussion: Patient had negotiated with oncologist, to restart anastrozole, does not feel emotionally able to trial the tamoxifen. She is not convinced that is a good option for her. She does feel things are improving slowly, she feels like her depression and anxiety are under control, she continues move forward with her appointments. She still feels somewhat isolated and this is complicated by the COVID-19 restrictions. She is hoping to have a visit with her family, feeling this would lift her spirits and bring her nisreen. Results - Lab Results Lab results reviewed: Yes Impression and Recommendations - Palliative Care Impression: This is a 64-year-old woman with left breast infiltrating ductal carcinoma, who is continuing with treatment with Herceptin, and expected to add anastrozole. Her pain has improved on pregabalin, mostly related to CI PN, does have an exacerbation of her Nolan arthritic pain. Patient continues with radiation dermatitis, still needs to follow-up with plastic surgeon. Palliative care continue provide support and focus of quality of life issues and anticipatory guidance. Recommendations/Counseling Done: 1. Chemotherapy-induced peripheral neuropathy. This is multifactorial, she does have underlying diabetes. She is at 100 mg 3 times daily, feels like this is providing adequate control balance with less sedation. She still has some numbness and alteration in sensation, but pain component is currently improved. We will continue with current regimen. 2. Radiation dermatitis. Unfortunately again skin remains fragile, scarring tissue re-traumatizing. She will follow through on consult with plastic surgeon, she does not at this point feel she would undergo reconstruction, but may need a skin flap for healing. Encouraged to make this appointment sooner than later. 3. Osteoarthritis pain, multiple joints. She has a pending appointment with Dr. Corbett orthopedist. She is currently managing, her back is improved. She will be working with physical therapy as well for pain management. 4. Deconditioning. This is multifactorial, patient is slowly improving, has started outpatient therapy with satisfactory goals. 5. Depression. Patient continues to be able to express her concerns and fears, does feel like she is continuing to do better. She is getting out and gardening, has some goals she is looking forward to. She is hoping to be able to get beyond her cancer treatments, in the next few months. But she does understand this will be a lifetime commitment for follow-up and support. Time Spent: 40 minutes with greater than 50% of this done in counseling regarding pain and symptom management, normalizing feelings of grief and loss, as well as anticipatory guidance and coordination of care.
== END 2019-09-25 11:10 | disposition home or self-care (01) ==
LOC: PC 11:09
PROVIDERS: ATTEND Nurse Practitioner Adult Health
DX: Z51.5 Encounter for palliative care (principal); G62.0 Drug-induced polyneuropathy; T45.1X5D Adverse effect of antineoplastic and immunosuppressive drugs, subsequent encounter; E11.42 Type 2 diabetes mellitus with diabetic polyneuropathy; L59.8 Other specified disorders of the skin and subcutaneous tissue related to radiation; Y84.2 Radiological procedure and radiotherapy as the cause of abnormal reaction of the patient, or of later complication, without mention of misadventure at the time of the procedure; M19.90 Unspecified osteoarthritis, unspecified site; M62.81 Muscle weakness (generalized); R53.83 Other fatigue; F32.9 Major depressive disorder, single episode, unspecified; C50.912 Malignant neoplasm of unspecified site of left female breast; Z79.899 Other long term (current) drug therapy; Z79.84 Long term (current) use of oral hypoglycemic drugs; Z79.01 Long term (current) use of anticoagulants; Z86.718 Personal history of other venous thrombosis and embolism
CPT/HCPCS: 99215

== ENCOUNTER 2019-10-16 12:28 | Outpatient (CLI) | payer MEDICAID ==
--- NOTE | 2019-10-16 14:07 | CONSULTATION NOTE ---
Palliative Care Follow Up - Referral Referring Provider: Dr. Harika Lopez Time of Visit: [phone] Referral setting: MAC Referral Reason: CIPN/Depression/breast CA - Information Sources Records reviewed: Previous records reviewed History/Review of Systems obtained from: Patient Exam limitations: No limitations - History of Present Illness Update Brief HPI Update: This is a 64-year-old woman with left breast infiltrating ductal carcinoma, clinical stage T2N1 stage IIb. She is status post bilateral mastectomy, left axillary node dissection and left chest wall radiation. She has had a complicated course with multiple complications related to chemotherapy, as well as her radiation dermatitis. She has trialed multiple hormonal treatments, unable to tolerate any side effects, she has restarted anastrozole. She does present with weight gain, of 8 to 10 pounds, worsening depression, and feeling more sluggish overall. She did stop her Eliquis, she has been quite strident about this, unfortunately anastrozole still has high risk for clots. Patient has been educated on signs and symptoms of DVT as well as PEs, she has had history of both in the past. Palliative care is seeing patient for management of pain and symptoms, she most recently was treated for bronchitis in beginning of September, her cough is since resolved. She has been having increased back pain, she sees did see her orthopedist, wanted to rule out any complications, she is waiting on an MRI and x-rays. She has increased pain in her L4 and L5. She is doing with well with her hip, and has started back on outpatient physical therapy. Patient does have a baseline depression. She had been planning to go see her family in [place], they have not opened up the border. This was somewhat of a "light at the end of the tunnel" and her reward for having made it through this year, she missed her family reunion last year. She reports this had started somewhat of a tailspin for her. She has not been sleeping well again is up mostly through the night, and sleeping late into the day. She is gotten out of her habit of eating 3 times a day, she is not making as good choices, and is feeling somewhat overwhelmed. She feels "stuck at home" as well as quite distressed with the limitations with COVID-19. She presents with her baseline chemotherapy-induced peripheral neuropathy, this has responded well to the pregabalin 100 mg 3 times daily, she does have some numbness. She is also restarted her Celebrex, and this has helped some with her joint pain. She also has had worsening of her left chest wall wound, I suspect it is not going to heal without a skin flap given the scar tissue, and the length of time at this point in time. There is no signs or symptoms of infection, she has had a referral from her oncologist today to wound care. I recommended she contact her plastic surgeon as soon as possible. Patient's past medical history includes hypertension, diabetes type 2, osteoarthritis, history of blood clots, peripheral vascular disease, sleep apnea with CPAP use, GERD, and spinal surgery with history of complications. 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 She has support from family, particularly her sister in [place]. [place] but they have not been as available for socialization or assistance as well. She does have [place] [employer], is unclear how much longer she will qualify for this. She still needs quite a bit of assistance given her limitations, she is though now walking with a cane, but still has fatigue and limitations with her pain Medications/Allergies - Medications Home Medications: Ambulatory Orders Medication Instructions Recorded Confirmed Sertraline HCl 150 mg PO DAILY 06/27/18 10/16/19 Simvastatin 20 mg PO QPM 06/27/18 10/16/19 metFORMIN [Glucophage] 500 mg PO BIDWM 06/27/18 10/16/19 Cholecalciferol (Vitamin D3) 2,000 unit PO DAILY 05/10/19 10/16/19 [Vitamin D3] Metoprolol Tartrate 50 mg PO DAILY 05/10/19 10/16/19 Multivitamin [Multivitamins] 1 tab PO DAILY 05/10/19 10/16/19 Valsartan 80 mg PO DAILY 05/10/19 10/16/19 Vitamin B Complex/Folic Acid 1 tab PO DAILY 05/10/19 10/16/19 [Vitamin B Complex Tablet] traMADol [Ultram] 50 mg PO PRN PRN 06/19/19 10/16/19 Pregabalin 100 mg PO TID 07/31/19 10/16/19 Anastrozole 1 mg PO DAILY 09/26/19 10/16/19 Celecoxib 200 mg PO DAILY 10/16/19 10/16/19 - Allergies Allergies/Adverse Reactions: Allergies Allergy/AdvReac Type Severity Reaction Status Date / Time hydroxyzine Allergy Itching Verified 09/25/19 11:39 lorazepam Allergy Emesis Verified 09/25/19 11:39 meclizine Allergy Emesis Verified 09/25/19 11:39 codeine AdvReac Nausea Verified 09/25/19 11:39 gabapentin AdvReac Dizziness Verified 09/25/19 11:39 silver AdvReac Rash Verified 09/25/19 11:39 [From [employer] Mesh] Review of Systems - Constitutional Constitutional: reports: Fatigue, Weight gain (8-10 pounds over two weeks). denies: Fever, Chills - Eyes Eyes: reports: Vision loss, Corrective lenses - Ears, Nose & Throat Ears, Nose & Throat: reports: Dry mouth - Cardiovascular Cardiovascular: reports: Palpitations (3-4 episodes attributes this to her new anastrozole), Decr. exercise tolerance - Respiratory Respiratory: denies: Cough (resolved), SOB at rest - Gastrointestinal Gastrointestinal: reports: Nausea (after treatment last time for a few days with diarrhea), Good appetite. denies: Constipation - Musculoskeletal Musculoskeletal: reports: Back pain, Stiffness, Assistive devices (using walking cand) - Integumentary Integumentary: reports: Dryness, Other (radiation dermitits on chest left) - Neurological Neurological: reports: General weakness, Numbness, Abnormal gait - Psychiatric Psychiatric: reports: Depression (worsening) - Endocrine Endocrine: reports: Diabetes type 2 - Hematologic/Lymphatic Hematologic/Lymphatic: reports: Anemia - All Other Systems All Other Systems: reports: Reviewed and negative Physical Exam - Vital Signs Temperature: 97.5 C Pulse Rate: 63 Respiratory Rate: 18 Blood Pressure: 130/64 - Physical Exam General Appearance: positive: Alert, Mild distress, Anxious Eyes Bilateral: positive: Normal inspection Neck: positive: Trachea midline Cardiovascular: positive: Regular rate & rhythm Respiratory: positive: No respiratory distress Abdomen: positive: Soft, Obese Skin: positive: Pallor, Dryness, Other (open area much bigger on chest; torn scar tissue; islets of cells in middle about 2 x 3 cm) Extremities: positive: No pedal edema Neurologic/Psychiatric: positive: Oriented x3, Depressed mood/affect, Flat affect Palliative Care - POLST Patient has POLST: No POLST Status: Full Code Pain: Pain worsening (back and knee pain), Pain improved (CIPN lower extremities) Tiredness/Fatigue: Moderate (4-6) Drowsiness/Sedation: Mild (1-3) Nausea: None Anorexia: None Dyspnea: None Depression: Moderate (4-6) Anxiety: Mild (1-3) Feelings of wellbeing/Perceived Quality of Life: Fair, Worsening Sleep: Sleep improved Constipation: Yes, Opoid induced, Managed Performance Status: Patient is disappointed, she is much more limited now with her back and knee pain, she will be getting work-up from Dr. Corbett with MRI and x-rays. He is concerned about her back surgery. She is able to manage her ADLs, with pacing herself. She still needs some help with household tasks, and support at home. She is starting outpatient physical therapy, she is hopeful to gain some quad strength, and improve her walking. She has progressed to a cane. - Palliative Care Discussion: Discussion and counseling today centered around her worsening depression, she had done fairly well for these last several months, I am concerned not only with some of the changes and disappointments more recently adding to this, as well as the hormonal treatment. She has had weight gain, she is up at night and sleeping through day, has changed her eating habits, is feeling more hopelessness. She is hoping that she will feel a bit better, as she gets over the disappointment of not being able to join her family for their family reunion. She feels very static and at home, with little socialization, she has still tried to continue her gardening. We did celebrate this is her last treatment, she has had so many complications, and still has many things yet ahead of her to resolve with her skin issues, back pain, and worsening depression. She is always been a good advocate for herself, and wondering if some of this is let down as this is been a very long and difficult journey for her. Impression and Recommendations - Palliative Care Impression: This is a 64-year-old woman with left breast infiltrating ductal carcinoma, who has just completed treatment of her Herceptin, and is continuing on with her anastrozole. She will be on surveillance at this point in time, she does still have high symptom burden and still residual complications she is dealing with. Patient presents today though with worsening depression, this is a concern. Palliative care to provide ongoing support for focus on quality of life issues, and anticipatory guidance. Recommendations/Counseling Done: 1. Chemotherapy-induced peripheral neuropathy. This is multifactorial, she does have underlying diabetes. She is on pre-N1 100 mg 3 times daily, I does feel this is providing adequate control balance with sedation. She still has numbness and alteration in sensation, PET pain can pronate is currently improved. She is able to ambulate with a walking cane. 2. Radiation dermatitis. Unfortunately this appears even worse than are last examination 2 weeks ago. Her skin is fragile, with scarring tissue, with frequent re-traumatizing with any kind of movement. She has not made her appointment with the plastic surgeon, she has been encouraged to do this. She most likely needs a skin flap for healing. She did get a referral to the wound care clinic though I suspect they will sent her in this direction as well. 3. Osteoarthritis pain multiple joints. She is off the Eliquis and has restarted her Celebrex. This is with some improvement, she is seeing her orthopedist, who is now working up her back for any further complications. She is working with physical therapy as well for pain management. 4. Deconditioning. This is multifactorial, she is slowly improving, though this is been somewhat halted with her air increase in back pain. She is working with outpatient therapy. 5. Depression. Patient does present with an exacerbation of her depression, I suspect this is multifactorial, but am concerned impacted by new hormonal treatment. Offered up medical palliative care social worker school at least to process some of her grief and loss that she is experienced through all of this, and perhaps to find her a good match for counseling, she will think about it. She does denies suicidality, but does admit to increased hopelessness, and feeling quite empty. We did agree to meet again in 2 weeks, to evaluate where she is sat, and find further resources to support her. Time Spent: 60 minutes with greater than 50% of this spent in counseling regarding depression, pain and symptom management, and coordination of care as well as anticipatory guidance. Palliative care will continue support until symptom burden stablized.
== END 2019-10-16 12:29 | disposition home or self-care (01) ==
LOC: PC 12:28
PROVIDERS: ATTEND Nurse Practitioner Adult Health
DX: Z51.5 Encounter for palliative care (principal); G62.0 Drug-induced polyneuropathy; L59.8 Other specified disorders of the skin and subcutaneous tissue related to radiation; M15.9 Polyosteoarthritis, unspecified; R53.81 Other malaise; F32.9 Major depressive disorder, single episode, unspecified; C50.912 Malignant neoplasm of unspecified site of left female breast; E11.9 Type 2 diabetes mellitus without complications; M54.5 Low back pain; I10 Essential (primary) hypertension; Z79.84 Long term (current) use of oral hypoglycemic drugs
CPT/HCPCS: 99215

== ENCOUNTER 2019-11-01 10:01 | Outpatient (CLI) | payer MEDICAID ==
--- NOTE | 2019-11-01 13:59 | CONSULTATION NOTE ---
Palliative Care Follow Up - Referral Referring Provider: Dr. Harika Lopez Time of Visit: 1015-02 Referral setting: [facility] Referral Reason: Depression/CIPN/Breast CA - Information Sources Records reviewed: Previous records reviewed History/Review of Systems obtained from: Patient Exam limitations: No limitations - History of Present Illness Update Brief HPI Update: This is a 64-year-old woman with left breast infiltrating ductal carcinoma, clinical stage T2N1 stage IIb. She is status post bilateral mastectomy, left a xillary node dissection and left chest wall radiation. She had a complicated course with multiple issues related chemotherapy as well as her radiation dermatitis. She continues with persistent skin issues, is being seen by the [facility] wound clinic, does have a pending referral to plastic surgery. Given the fragility of her skin, scar tissue, and length of time greater than 7 months, suspect she is going to need a skin flap. Patient is finished with her chemotherapy, she is trialed multiple hormonal treatments with poor toleration. She has restarted anastrozole, has had some symptoms of dizziness, lethargy, but no hypertension, was concerned it was contributing to her depression but she has improved. She feels currently she is tolerating it, she is currently off her Eliquis though, remains at high risk for DVT as well as PEs, as she has had a history of both in the past. Patient's CI PN, is doing fairly well, she is on the pregabalin and tolerating that at 100 mg 3 times daily with good results. She is still has some increasing lower back pain, worsens with standing, she is due for an MRI on Tuesday and x-rays. She is being followed by her orthopedist, and is hoping to get an injection, and also follow-up for her knees. She does have tramadol available if it becomes acute, but has only needed to use it once in 2 weeks. Patient does have baseline depression, had rescheduled a follow-up visit as she had presented with severe depressive symptoms at our last visit. She has been doing better, she is getting up in the morning, setting goals, spending time in her garden, and seeing her son weekly. She has had a few lapses, but overall feels like she is improving. She declines need for further counseling or follow-up, but will stay in touch and has been instructed to let me know if it worsens again. Patient's past medical history includes hypertension, diabetes type 2 currently controlled, osteoarthritis, history of blood clots, peripheral vascular disease, sleep apnea with CPAP use, GERD, and spinal surgery with history of complications. 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 She is hoping when she finally gets her health problems results, to return to some kind of employment. Currently she still needs assistance, and still has [place] support which is appropriate this point in time, as she still has quite a few limitations Medications/Allergies - Medications Home Medications: Ambulatory Orders Medication Instructions Recorded Confirmed Sertraline HCl 150 mg PO DAILY 06/27/18 10/26/19 Simvastatin 20 mg PO QPM 06/27/18 10/26/19 metFORMIN [Glucophage] 500 mg PO BIDWM 06/27/18 10/26/19 Cholecalciferol (Vitamin D3) 2,000 unit PO DAILY 05/10/19 10/26/19 [Vitamin D3] Metoprolol Tartrate 50 mg PO DAILY 05/10/19 10/26/19 Multivitamin [Multivitamins] 1 tab PO DAILY 05/10/19 10/26/19 Valsartan 80 mg PO DAILY 05/10/19 10/26/19 Vitamin B Complex/Folic Acid 1 tab PO DAILY 05/10/19 10/26/19 [Vitamin B Complex Tablet] traMADol [Ultram] 50 mg PO PRN PRN 06/19/19 10/26/19 Pregabalin 100 mg PO TID 07/31/19 10/26/19 Anastrozole 1 mg PO DAILY 09/26/19 10/26/19 Celecoxib 200 mg PO DAILY 10/16/19 10/26/19 - Allergies Allergies/Adverse Reactions: Allergies Allergy/AdvReac Type Severity Reaction Status Date / Time hydroxyzine Allergy Itching Verified 10/26/19 10:28 lorazepam Allergy Emesis Verified 10/26/19 10:28 meclizine Allergy Emesis Verified 10/26/19 10:28 codeine AdvReac Nausea Verified 10/26/19 10:28 gabapentin AdvReac Dizziness Verified 10/26/19 10:28 silver AdvReac Rash Verified 10/26/19 10:28 [From Tegaderm AG Mesh] Review of Systems - Constitutional Constitutional: reports: Fatigue (improved), Weight gain. denies: Fever, Chills - Eyes Eyes: reports: Vision loss, Corrective lenses - Ears, Nose & Throat Ears, Nose & Throat: reports: Dry mouth - Cardiovascular Cardiovascular: reports: Palpitations (2-3 x a week since starting anastrozole), Exertional dyspnea, Decr. exercise tolerance. denies: Chest pain, Edema - Respiratory Respiratory: reports: SOB with exertion. denies: SOB at rest - Gastrointestinal Gastrointestinal: reports: Good appetite. denies: Constipation, Nausea - Musculoskeletal Musculoskeletal: reports: Back pain, Stiffness, Limited range of motion, Muscle weakness (working with PT). denies: Assistive devices - Integumentary Integumentary: reports: Dryness, Other (open areas still on left chest) - Neurological Neurological: reports: Focal weakness (quads/gluts), Numbness, Abnormal gait - Psychiatric Psychiatric: reports: Depression - Endocrine Endocrine: reports: Diabetes type 2 - All Other Systems All Other Systems: reports: Reviewed and negative Physical Exam - Vital Signs Temperature: 97.3 C Pulse Rate: 62 Respiratory Rate: 18 O2 Saturation: 95 (ra @ rest) Blood Pressure: 128/66 - Physical Exam General Appearance: positive: No acute distress, Alert Eyes Bilateral: positive: Normal inspection Neck: positive: Trachea midline Cardiovascular: positive: Regular rate & rhythm Respiratory: positive: No respiratory distress, Breath sounds nml. negative: Wheezes, Rales, Rhonchi Abdomen: positive: Soft, Nml bowel sounds Skin: positive: Pallor, Dryness, Wound (3 small open shallow areas; currently has medihoney used) Extremities: positive: No pedal edema Neurologic/Psychiatric: positive: Oriented x3, Mood/affect nml, Flat affect Palliative Care - POLST Patient has POLST: No POLST Status: Full Code Pain: Pain worsening (back/knees), Pain improved, Location (feet/), Severity (10) Tiredness/Fatigue: Mild (1-3) Drowsiness/Sedation: None Nausea: None Anorexia: None Dyspnea: Mild (1-3) Depression: Mild (1-3) Anxiety: Mild (1-3) Feelings of wellbeing/Perceived Quality of Life: Good, Acceptable, Improved Sleep: Sleep improved Constipation: No Performance Status: Patient still needs to limit her lifting related to her back, but overall is able to drive and doing a little bit more for herself. She still needs household support, and shopping secondary to COVID-19. She is participating physical therapy, is hoping to get more visits she has been limited to 6 of her insurance. She has found this quite beneficial and recognizes she is quite deconditioned and would benefit. - Palliative Care Discussion: Patient has had a long complicated course, she does feel like she is coming out of it. She still has several health problems that she needs follow-up on, but is feeling like there might be a light at the end of the tunnel. She is starting to think about the future, but not to forehead. Is hopeful at some point in time given financial stressors, to be able to work again. She does feel her depression has improved, and is currently managed. She does have some good insight into this, and does feel like she would reach out if she needed more assistance. Impression and Recommendations - Palliative Care Impression: This is a 64-year-old woman with left breast infiltrating ductal carcinoma, who has just completed her treatment, but is continuing on with hormonal anastrozole. She will be on surveillance at this point in time, she is having improving symptom burden, still has some residual complications related to her radiation dermatitis, and now with exacerbation of her back pain. Her depression does appear improved today, this was a significant concern. Palliative care will be available as needed, patient feels current symptoms are under control, will do an evaluation every 3 months for her pain management and follow for symptoms of exacerbation of depression. Recommendations/Counseling Done: 1.Chemotherapy-induced peripheral neuropathy. This is multifactorial as she does have underlying diabetes. She is on pregabalin 100 mg 3 times daily, she feels this is currently working, has not had any further sedation. She still has numbness and alteration in sensation, has developed some numbness in her fingers, she does feel her walking is improving. She is currently satisfied with her regimen, will continue at current dosing, can go up to 450 mg in 24 hours if needed. 2. Radiation dermatitis. She has been seen by the [facility] wound clinic, with a pending referral to plastic surgeon. She most likely needs a skin flap for healing, will continue to monitor. 3. Deconditioning. This is multifactorial, she is slowly improving, she is working with outpatient therapy and is hoping to continue this. 4. Depression. Patient did present with an exacerbation of her depression last 2 weeks, she is doing better, feels like it is currently controlled. She does not feel she needs further counseling at this point in time, she has had a significant and difficult year, she is coming to a place where she still has several health care appointments pending and hopefully no further complications. 5. Advanced care planning. Patient has completed the bulk of her treatment for her breast cancer, will continue on hormonal treatment. She is hoping for the best as far as ongoing improvement in health, will continue with palliative care at least for the next several months, will transition her pain management to her PCP if patient remains stable. She still has several pending appointments that could add more complexity to her health care plan. Palliative care available, she will check-in if things exacerbate, otherwise we will see her in 3-month Time Spent: 45 minutes with greater than 50% of this done in counseling regarding management of her depression, coordination of care, and anticipatory guidance.
--- NOTE | 2019-11-06 14:14 | CONSULTATION NOTE ---
Referring Provider Name of Referring Provider:: Dr. Marina Consult Date: 11/06/19 Chief Complaint - Chief Complaint Chief Complaint: non healing wounds of left chest wall History of Present Illness - Admitted From Admitted From:: [facility] Consultation - History Obtained From Records Reviewed: [facility] [employer] History obtained from: pt, records Exam Limitations: none - History of Present Illness HPI Comment/Other: 64 yo female with hx of Stage 2B triple positive invasive ductal ca of the left breast, s/p bilateral mastectomies (left therapeutic, right prophylactic) last year followed by radiation therapy on the left, completed in March of 2019. She recently completed adjuvant chemo/immunotherapy this month. She noted that she received a radiation boost to the chest wall to treat local invasion and wounds developed along the left mastectomy surgical scar which began during radiation therapy with severe dermatitis and then worsened following completion with intermittent healing and then recurrence. She reports being seen several times but not regularly at a wound clinic in [facility] where she had her radiation therapy. She has used xeroform gauze, mepilex foam and medi-honey in the past and occasional but not regular debridements. She reports that the wounds can be quite painful at times with drainage and the dressings frequently come off between visits. No recent fever/chills. No hx of bleeding diathesis. She has been told that she might need flap reconstruction to heal her wounds.She has been on anticoagulation therapy for VTE associated with chemotherapy. She is a type 2 diabetic and a nonsmoker. 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 STRUCTURER: reports: Miscarriage(s), Breast cancer : reports: None HEENT: reports: Chronic vision loss, Chronic sinusitis Psych: reports: Anxiety Musculoskeletal: reports: Osteoarthritis Derm: reports: None, Other MRSA Hx?: No - Past Surgical History Ortho: reports: Spine surgery /EQUITY STRUCTURER: reports: Tubal ligation, Mastectomy (bilateral in 2019), Other - Family & Social History Family History: Mother: , CAD, Obesity, Father: , CAD, Sister: , CAD, Diabetes, Type 2, Obesity, Brother: , CAD, Diabetes, Type 2, Obesity Family History Comment/Other: Patient is one of 7 siblings, 6 are still living, parents are Living Situation: Alone Social History Notes: The patient has lived in [place] for the past 24 years. 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 She lives alone, has a son and a daughter who have their own lives making minimum wage, so cannot help their mother out much. She has been for the past 16 years, never re-. Since her breast cancer treatments, her sister Saturnino has been supportive by staying with her, but lives in [place], so is not a reliable, long-term support. She denies the use of tobacco, alcohol, or illicit drugs. She wishes to be a full code. - Substance History Use: Uses substance without health or social issues: NONE - POLST Patient has POLST: No POLST Status: Full Code Meds/Allgy - Home Medications Home Medications: Ambulatory Orders Medication Instructions Recorded Confirmed Sertraline HCl 150 mg PO DAILY 06/27/18 10/26/19 Simvastatin 20 mg PO QPM 06/27/18 10/26/19 metFORMIN [Glucophage] 500 mg PO BIDWM 06/27/18 10/26/19 Cholecalciferol (Vitamin D3) 2,000 unit PO DAILY 05/10/19 10/26/19 [Vitamin D3] Metoprolol Tartrate 50 mg PO DAILY 05/10/19 10/26/19 Multivitamin [Multivitamins] 1 tab PO DAILY 05/10/19 10/26/19 Valsartan 80 mg PO DAILY 05/10/19 10/26/19 Vitamin B Complex/Folic Acid 1 tab PO DAILY 05/10/19 10/26/19 [Vitamin B Complex Tablet] traMADol [Ultram] 50 mg PO PRN PRN 06/19/19 10/26/19 Pregabalin 100 mg PO TID 07/31/19 10/26/19 Anastrozole 1 mg PO DAILY 09/26/19 10/26/19 Celecoxib 200 mg PO DAILY 10/16/19 10/26/19 - Allergies Allergies/Adverse Reactions: Allergies Allergy/AdvReac Type Severity Reaction Status Date / Time hydroxyzine Allergy Itching Verified 10/26/19 10:28 lorazepam Allergy Emesis Verified 10/26/19 10:28 meclizine Allergy Emesis Verified 10/26/19 10:28 codeine AdvReac Nausea Verified 10/26/19 10:28 gabapentin AdvReac Dizziness Verified 10/26/19 10:28 silver AdvReac Rash Verified 10/26/19 10:28 [From Tegaderm AG Mesh] Review of Systems - Constitutional Constitutional: denies: Fever, Chills - Integumentary Integumentary: reports: Other (painful weeping non healing wounds left chest wall) - Hematologic/Lymphatic Hematologic/Lymphatic: reports: Blood clots. denies: Bleeding tendencies Exam - Vital Signs Reviewed Vital Signs: Yes - Physical Exam General Appearance: positive: No acute distress, Alert Skin: positive: Other (bilateral mastectomy scars; right side well healed; left side with two larger irregular punched out wounds along the surgical scar with pale white/yellow eschar and pale granulation tissue base; two smaller adjacent wounds; no surrounding erythema or odor; see photos and measurements) Neurologic/Psychiatric: positive: Oriented x3 Conclusion/Plan - Diagnosis Diagnosis: Non healing ulcers of the left anterior chest wall; contributing factors include prior radiation therapy, underlying diabetes, malignancy, and recent chemotherapy. No evidence of recurrent cancer at the wound sites at present. No consistent wound management likely influenced non healing. Progressive effects of radiation therapy may make wound healing difficult and recurrence more likely. - Plan Plan: Weekly visits for wound hygiene including cleansing, debridement, edge freshening, and anti biofilm dressings. If this treatment regimen fails, then she might very well need a myocutaneous flap to achieve satisfactory healing. This was discussed in detail with the patient who is very unhappy that her wounds haven't healed and is also not happy about the prospect of another surgery and is willing to give this approach a try. This was a 60 minute evaluation the majority of which was spent in records review and discussion regarding the above treatment options. - Lab Results Lab results reviewed: Yes Other Lab Results: Alb 3.9 and A1c 7.2 in 07/2019.
--- NOTE | 2019-11-06 15:03 | PROCEDURE REPORT ---
Hospitalist Procedure Note - Procedure Note Procedure Note: Wound Debridement Note: After informed consent, the patient's wounds were cleansed, then 5% topical lidocaine was applied for local anesthesia. Using sterile technique, a 3 mm curette was used to sharply debride the wounds of necrotic skin and subcutaneous tissue until bleeding viable tissue was obtained. The skin edges were freshened in a similar fashion. Hemostasis was achieved with pressure and time. A new dressing of foam hydrocolloid with anti biofilm properties was applied and the procedure terminated without apparent complications. Appropriate f/u instructions were given. Wound measurements in cm L x W x D: Pre debridement: 1. Left [place] lateral chest wall: 1.2 x 4.9 x 0.15 2. Left medial chest wall: 2.2 x 3.1 x 0.1 Post debridment : 1. Left [place] lateral chest wall: 1.3 x 4.9 x 0.2 2. left medial chest wall: 2.2 x 3.4 x 0.1
== END 2019-11-01 10:02 | disposition home or self-care (01) ==
LOC: PC 10:01
PROVIDERS: ATTEND Nurse Practitioner Adult Health
DX: Z51.5 Encounter for palliative care (principal); F32.9 Major depressive disorder, single episode, unspecified; C50.912 Malignant neoplasm of unspecified site of left female breast; G62.0 Drug-induced polyneuropathy; T45.1X5A Adverse effect of antineoplastic and immunosuppressive drugs, initial encounter; L59.8 Other specified disorders of the skin and subcutaneous tissue related to radiation; Z74.09 Other reduced mobility; M54.5 Low back pain; E11.9 Type 2 diabetes mellitus without complications; I10 Essential (primary) hypertension; H54.7 Unspecified visual loss; Z79.84 Long term (current) use of oral hypoglycemic drugs; Z79.899 Other long term (current) drug therapy; Z90.12 Acquired absence of left breast and nipple; Z86.718 Personal history of other venous thrombosis and embolism; Z86.711 Personal history of pulmonary embolism
CPT/HCPCS: 99215

== ENCOUNTER 2020-02-20 18:11 | Outpatient (CLI) | payer MEDICAID ==
[2020-02-20 18:34] LABS: HGB - HEMOGLOBIN 13.6 g/dL (12.0-16.0); MEAN CORPUSCULAR HEMOGLOBIN 29.8 pg (27.0-31.0); MEAN CORPUSCULAR HGB CONC 32.5 g/dL (32.0-36.0); MEAN CORPUSCULAR VOLUME 91.9 fL (81.0-99.0); MEAN PLATELET VOLUME 11.1 fL (7.9-10.8); RED BLOOD COUNT 4.56 10^6/uL (4.20-5.40); RED CELL DISTRIBUTION WIDTH 16.8 % (12.0-15.0); WHITE BLOOD COUNT 4.4 x10^3/uL (4.8-10.8)
[2020-02-20 18:41] LABS: ALBUMIN 3.9 g/dL (3.2-5.5); ALBUMIN/GLOBULIN RATIO 1.1 (1.0-2.2); BILIRUBIN,TOTAL 0.9 mg/dL (0.2-1.0); CALCIUM 9.2 mg/dL (8.5-10.3); CREATININE 0.6 mg/dL (0.4-1.0); TOTAL PROTEIN 7.6 g/dL (6.7-8.2)
== END 2020-02-20 18:12 | disposition home or self-care (01) ==
LOC: LAB.S 18:11
PROVIDERS: ATTEND Nurse Practitioner Family
DX: Z01.810 Encounter for preprocedural cardiovascular examination (principal); I10 Essential (primary) hypertension; E11.21 Type 2 diabetes mellitus with diabetic nephropathy
CPT/HCPCS: 36415; 80053; 85027

== ENCOUNTER 2020-02-21 18:19 | Outpatient (CLI) | payer MEDICAID | END 2020-02-21 18:20 | disposition home or self-care (01) | LOC: RT 18:19 | PROVIDERS: ATTEND Nurse Practitioner Family | DX: Z01.810 Encounter for preprocedural cardiovascular examination (principal); I10 Essential (primary) hypertension; E11.21 Type 2 diabetes mellitus with diabetic nephropathy | CPT/HCPCS: 93005 ==

== ENCOUNTER 2020-05-05 09:50 | Outpatient (CLI) | payer MEDICAID ==
[2020-05-05 12:33] LABS: CREATININE,URINE 136.1 mg/dL; MICROALBUMIN,URINE 1.5 mg/dL (0-300.0)
[2020-05-05 12:48] LABS: CHOLESTEROL 186 mg/dL; HDL CHOLESTEROL 47 mg/dL; LDL CHOLESTEROL,CALCULATED 108 mg/dL; LDL/HDL RATIO 2.3 (<4.4); VLDL CHOLESTEROL 31 mg/dL
[2020-05-05 13:56] LABS: HEMOGLOBIN A1c% 7.1 % (4.27-6.07)
== END 2020-05-05 09:51 | disposition home or self-care (01) ==
LOC: LAB 09:50
PROVIDERS: ATTEND Internal Medicine
DX: E11.42 Type 2 diabetes mellitus with diabetic polyneuropathy (principal); Z20.822 Contact with and (suspected) exposure to COVID-19
CPT/HCPCS: 36415; 80061; 82043; 82570; 83036; 83721

== ENCOUNTER 2020-05-08 08:00 | Outpatient (CLI) | payer MEDICAID | END 2020-05-08 23:59 | LOC: LAB.WCP 08:00 | PROVIDERS: ATTEND Internal Medicine | DX: Z12.11 Encounter for screening for malignant neoplasm of colon (principal) | CPT/HCPCS: 82274 ==

== ENCOUNTER 2020-06-11 13:31 | Emergency (ER) | payer MEDICARE, OTHER, MEDICAID ==
[2020-06-11] MEDS ORDERED: SODIUM CHLORIDE 0.9% 1,000 ML IV STA (14:08)
--- NOTE | 2020-06-11 14:28 | ED Physician Documentation ---
History of Present Illness - Stated complaint Stated Complaint: DIZZINESS - Chief complaint Chief Complaint: General - History obtained from History obtained from: Patient - History of Present Illness Timing: Today Pain level max: 0 Pain level now: 0 - Additonal information Additional information: Patient is a 65-year-old female who presents to the emergency department after an episode of lightheadedness earlier today. She states she had some breakfast at around 9 AM and a cup of coffee, but otherwise has not ate or drink anything today. She states that she had her lab work done awaiting her CT scan. After she had the lab work drawn, she got up to go walk over to the [facility] clinic to reschedule her wound care appointment when she felt lightheaded and dizzy. This has since resolved. She states she is feeling better now. No chest pain. No shortness of breath. Review of Systems Constitutional: denies: Fever, Chills Ears: denies: Ear pain Nose: denies: Rhinorrhea / runny nose, Congestion Throat: denies: Sore throat Cardiac: denies: Chest pain / pressure, Palpitations Respiratory: denies: Cough GI: denies: Nausea, Vomiting, Diarrhea Skin: denies: Rash Musculoskeletal: denies: Neck pain, Back pain Neurologic: denies: Headache PD PAST MEDICAL HISTORY - Past Medical History Past Medical History: Yes Cardiovascular: Hypertension, High cholesterol, Peripheral Vascular Disease, Murmur Respiratory: Sleep apnea, CPAP use Neuro: Headaches, Peripheral neuropathy, Fainting Endocrine/Autoimmune: Type 2 diabetes GI: GERD, Cholelithiasis 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(s), Breast cancer : None HEENT: Chronic vision loss, Chronic sinusitis Psych: Anxiety Musculoskeletal: Osteoarthritis Derm: None, Other - Past Surgical History Past Surgical History: Yes Ortho: Spine surgery /GEAR TOOTH GRINDING MACHINE OPERATOR: Tubal ligation, Other - Present Medications Home Medications: Ambulatory Orders Medication Instructions Recorded Confirmed Sertraline HCl 150 mg PO DAILY 06/27/18 06/10/20 Simvastatin 20 mg PO QPM 06/27/18 06/10/20 metFORMIN [Glucophage] 500 mg PO BIDWM 06/27/18 06/10/20 Cholecalciferol (Vitamin D3) 2,000 unit PO DAILY 05/10/19 06/10/20 [Vitamin D3] Metoprolol Tartrate 50 mg PO DAILY 05/10/19 06/10/20 Multivitamin [Multivitamins] 1 tab PO DAILY 05/10/19 06/10/20 Valsartan 80 mg PO DAILY 05/10/19 06/10/20 Vitamin B Complex/Folic Acid 1 tab PO DAILY 05/10/19 06/10/20 [Vitamin B Complex Tablet] traMADol [Ultram] 50 mg PO PRN PRN 06/19/19 06/10/20 Pregabalin 100 mg PO TID 07/31/19 06/10/20 Celecoxib 200 mg PO DAILY 10/16/19 06/10/20 - Allergies Allergies/Adverse Reactions: Allergies Allergy/AdvReac Type Severity Reaction Status Date / Time hydroxyzine Allergy Itching Verified 06/11/20 13:49 lorazepam Allergy Emesis Verified 06/11/20 13:49 meclizine Allergy Emesis Verified 06/11/20 13:49 codeine AdvReac Nausea Verified 06/11/20 13:49 gabapentin AdvReac Dizziness Verified 06/11/20 13:49 - Social History Does the pt smoke?: No Smoking Status: Never smoker Does the pt drink ETOH?: No Does the pt have substance abuse?: No - Immunizations Immunizations are current?: Yes - POLST Patient has POLST: No POLST Status: Full Code PD ED PE NORMAL - Vitals Vital signs reviewed: Yes - General General: Alert and oriented X 3, No acute distress - HEENT HEENT: PERRL, Moist mucous membranes - Neck Neck: Supple, no meningeal sign - Cardiac Cardiac: RRR, Strong equal pulses - Respiratory Respiratory: No respiratory distress, Clear bilaterally - Abdomen Abdomen: Soft, Non tender, Non distended - Derm Derm: Warm and dry - Extremities Extremities: No edema, No calf tenderness / cord - Neuro Neuro: Alert and oriented X 3, architectural examiner 2-12 intact, No motor deficit, No sensory deficit, Normal speech Eye Opening: Spontaneous Motor: Obeys Commands Verbal: Oriented GCS Score: 15 - Psych Psych: Normal mood, Normal affect Results - Vitals Vitals: Vital Signs - 24 hr 06/11/20 06/11/20 13:49 17:01 Temperature 36.1 C L Heart Rate 59 L 64 Respiratory 18 14 Rate Blood Pressure 141/58 H 138/69 H O2 Saturation 96 98 Oxygen O2 Source Room air - EKG (time done) 1410 Rate: Rate (enter#) (60) Rhythm: NSR [place]: Normal Intervals: Normal NE QRS: Normal Ischemia: Normal ST segments - Labs Labs: Laboratory Tests 06/11/20 06/11/20 06/11/20 13:23 15:38 15:38 WBC 4.2 L RBC 3.99 L Hgb 12.4 Hct 38.8 MCV 97.2 MCH 31.1 H MCHC 32.0 RDW 15.2 H Plt Count 128 L MPV 11.0 H Neut # (Auto) 2.2 Lymph # (Auto) 1.1 L [place] # (Auto) 0.7 Eos # (Auto) 0.1 Baso # (Auto) 0.0 Absolute Nucleated RBC 0.00 Nucleated RBC % 0.0 Sodium 142 Potassium 4.2 Chloride 105 Carbon Dioxide 25 Anion Gap 12.0 BUN 21 H Creatinine 0.6 Estimated GFR (MDRD) 100 Glucose 168 H Calcium 9.7 Total Bilirubin 0.9 AST 75 H ALT 65 H Alkaline Phosphatase 111 Troponin I High Sens 4.9 Total Protein 8.1 Albumin 4.2 Globulin 3.9 Albumin/Globulin Ratio 1.1 Lipase 36 PD MEDICAL DECISION MAKING - ED course Complexity details: reviewed old records, reviewed results, re-evaluated patient, considered differential, d/w patient ED course: 65-year-old female with lightheadedness today. Appears mildly dehydrated. Feels better after IV fluids. Symptoms resolved. No acute findings on EKG, laboratory testing. She had a chest CT ordered today as well, this is not yet read. She will follow up with her doctor for the results of this. Patient is well-appearing, nontoxic. Afebrile. Patient counseled regarding signs and symptoms for which I believe and urgent re-evaluation would be necessary. Patient with good understanding of and agreement to plan and is comfortable going home at this time This document was made in part using voice recognition software. While efforts are made to proofread this document, sound alike and grammatical errors may occur. Departure - Departure Disposition: 01 Home, Self Care Clinical Impression: Dehydration Condition: Good Instructions: ED Dehydration Follow-Up: Jah Marie MD [Primary Care Provider] - Within 1 week Comments: Drink plenty of fluids. Return if you worsen. Follow-up with your doctor for further care. Discharge Date/Time: 06/11/20 17:02
[2020-06-11 14:30] LABS: ALBUMIN 4.2 g/dL (3.2-5.5); ALBUMIN/GLOBULIN RATIO 1.1 (1.0-2.2); BILIRUBIN,TOTAL 0.9 mg/dL (0.2-1.0); CALCIUM 9.7 mg/dL (8.5-10.3); CREATININE 0.6 mg/dL (0.4-1.0); POTASSIUM 4.2 mmol/L (3.5-5.0); TOTAL PROTEIN 8.1 g/dL (6.7-8.2)
[2020-06-11] MEDS ORDERED: ACETAMINOPHEN 325 MG TABLET PO STA (16:03)
[2020-06-11 16:04] LABS: BASOPHILS % (AUTO) 0.7 %; EOSINOPHILS # (AUTO) 0.1 10^3/uL (0.0-0.7); EOSINOPHILS % (AUTO) 1.4 %; HCT - HEMATOCRIT 38.8 % (37.0-47.0); HGB - HEMOGLOBIN 12.4 g/dL (12.0-16.0); LYMPHOCYTES # (AUTO) 1.1 10^3/uL (1.5-3.5); LYMPHOCYTES % (AUTO) 27.3 %; MEAN CORPUSCULAR HEMOGLOBIN 31.1 pg (27.0-31.0); MEAN CORPUSCULAR VOLUME 97.2 fL (81.0-99.0); MONOCYTES # (AUTO) 0.7 10^3/uL (0.0-1.0); MONOCYTES % (AUTO) 17.7 %; NEUTROPHILS # (AUTO) 2.2 10^3/uL (1.5-6.6); NEUTROPHILS % (AUTO) 52.7 %; PLT - PLATELET COUNT 128 10^3/uL (130-450); RED BLOOD COUNT 3.99 10^6/uL (4.20-5.40); RED CELL DISTRIBUTION WIDTH 15.2 % (12.0-15.0); WHITE BLOOD COUNT 4.2 x10^3/uL (4.8-10.8)
[2020-06-11 17:02] VITALS: BP 138/69
== END 2020-06-11 17:02 | disposition home or self-care (01) ==
LOC: ED 13:31
DX: E86.0 Dehydration (principal); R42 Dizziness and giddiness; I10 Essential (primary) hypertension; E11.42 Type 2 diabetes mellitus with diabetic polyneuropathy; E11.51 Type 2 diabetes mellitus with diabetic peripheral angiopathy without gangrene; Z79.84 Long term (current) use of oral hypoglycemic drugs
CPT/HCPCS: 80053; 83690; 84484; 85025; 93005; 96360; 99284; A9270

== ENCOUNTER 2020-06-19 08:00 | Outpatient (CLI) | payer MEDICARE, OTHER, MEDICAID ==
[2020-06-19 18:21] LABS: BASOPHILS % (AUTO) 0.8 %; EOSINOPHILS # (AUTO) 0.1 10^3/uL (0.0-0.7); EOSINOPHILS % (AUTO) 1.6 %; HCT - HEMATOCRIT 42.5 % (37.0-47.0); HGB - HEMOGLOBIN 13.4 g/dL (12.0-16.0); LYMPHOCYTES # (AUTO) 1.1 10^3/uL (1.5-3.5); MEAN CORPUSCULAR HEMOGLOBIN 30.9 pg (27.0-31.0); MEAN CORPUSCULAR HGB CONC 31.5 g/dL (32.0-36.0); MEAN CORPUSCULAR VOLUME 97.9 fL (81.0-99.0); MEAN PLATELET VOLUME 11.4 fL (7.9-10.8); MONOCYTES # (AUTO) 0.5 10^3/uL (0.0-1.0); MONOCYTES % (AUTO) 13.3 %; NEUTROPHILS # (AUTO) 2.1 10^3/uL (1.5-6.6); PLT - PLATELET COUNT 134 10^3/uL (130-450); RED BLOOD COUNT 4.34 10^6/uL (4.20-5.40); RED CELL DISTRIBUTION WIDTH 15.7 % (12.0-15.0); WHITE BLOOD COUNT 3.8 x10^3/uL (4.8-10.8)
[2020-06-19 18:40] LABS: ALBUMIN 3.9 g/dL (3.2-5.5); ALBUMIN/GLOBULIN RATIO 1.2 (1.0-2.2); CALCIUM 9.1 mg/dL (8.5-10.3); CREATININE 0.6 mg/dL (0.4-1.0); POTASSIUM 4.1 mmol/L (3.5-5.0); TOTAL PROTEIN 7.2 g/dL (6.7-8.2)
== END 2020-06-19 23:59 | disposition home or self-care (01) ==
LOC: LAB.WCP 08:00
PROVIDERS: ATTEND Internal Medicine
DX: R06.09 Other forms of dyspnea (principal)
CPT/HCPCS: 36415; 80053; 83880; 85025; 85379

== ENCOUNTER 2020-06-19 19:48 | Emergency (ER) | payer MEDICARE, MEDICAID ==
[2020-06-19 20:00] VITALS: BP 129/65
--- NOTE | 2020-06-19 20:40 | ED Physician Documentation ---
PD HPI DYSPNEA - Stated complaint Stated Complaint: SOA/LUNG PX - Chief complaint Chief Complaint: Resp - History obtained from History obtained from: Patient - History of Present Illness Timing - onset: How many weeks ago (3) Timing - onset during: Light activity Timing - duration: Weeks (3) Timing - details: Gradual onset, Still present Inciting event(s): URI Improved by: Rest Worsened by: Exertion, Coughing Associated symptoms: Cough. No: Fever, Hemoptysis, Wheezing, Chest pain / discomfort, Palpitations, Diaphoresis, Bilateral edema, Unilateral edema Similar symptoms before: Diagnosis (pneumonia) Recently seen: Clinic - Additional information Additional information: 65-year-old female with a history of an aggressive breast cancer that is in remission has developed exertional dyspnea over the past 3 weeks that has progressed and despite treatment for pneumonia discovered on a CT scan 8 days ago she continues to have shortness of breath. She was evaluated this morning by her primary care doctor blood work was done and there is an elevated D-dimer she has been asked to come to the emergency department for CT angiogram. Review of Systems Constitutional: denies: Fever, Chills Eyes: denies: Decreased vision Ears: denies: Ear pain Nose: denies: Rhinorrhea / runny nose, Congestion Throat: denies: Sore throat Cardiac: reports: Chest pain / pressure. denies: Palpitations, Pedal edema, Calf pain Respiratory: reports: Dyspnea, Cough. denies: Hemoptysis, Wheezing GI: denies: Abdominal Pain, Nausea, Vomiting, Constipation, Diarrhea : denies: Dysuria, Frequency PD PAST MEDICAL HISTORY - Past Medical History Cardiovascular: Hypertension, High cholesterol, Peripheral Vascular Disease, Murmur Respiratory: Sleep apnea, CPAP use Neuro: Headaches, Peripheral neuropathy, Fainting Endocrine/Autoimmune: Type 2 diabetes GI: GERD, Cholelithiasis GOLD ASSAYER: Miscarriage(s), Breast cancer : None HEENT: Chronic vision loss, Chronic sinusitis Psych: Anxiety Musculoskeletal: Osteoarthritis Derm: None, Other - Past Surgical History Past Surgical History: Yes Ortho: Spine surgery /GOLD ASSAYER: Tubal ligation, Other - Present Medications Home Medications: Ambulatory Orders Medication Instructions Recorded Confirmed Sertraline HCl 150 mg PO DAILY 06/27/18 06/10/20 Simvastatin 20 mg PO QPM 06/27/18 06/10/20 metFORMIN [Glucophage] 500 mg PO BIDWM 06/27/18 06/10/20 Cholecalciferol (Vitamin D3) 2,000 unit PO DAILY 05/10/19 06/10/20 [Vitamin D3] Metoprolol Tartrate 50 mg PO DAILY 05/10/19 06/10/20 Multivitamin [Multivitamins] 1 tab PO DAILY 05/10/19 06/10/20 Valsartan 80 mg PO DAILY 05/10/19 06/10/20 Vitamin B Complex/Folic Acid 1 tab PO DAILY 05/10/19 06/10/20 [Vitamin B Complex Tablet] traMADol [Ultram] 50 mg PO PRN PRN 06/19/19 06/10/20 Pregabalin 100 mg PO TID 07/31/19 06/10/20 Celecoxib 200 mg PO DAILY 10/16/19 06/10/20 Amox/Clav 875/125 [Augmentin] 1 each PO Q12H #20 tablet 06/19/20 - Allergies Allergies/Adverse Reactions: Allergies Allergy/AdvReac Type Severity Reaction Status Date / Time hydroxyzine Allergy Itching Verified 06/19/20 20:02 lorazepam Allergy Emesis Verified 06/19/20 20:02 meclizine Allergy Emesis Verified 06/19/20 20:02 codeine AdvReac Nausea Verified 06/19/20 20:02 gabapentin AdvReac Dizziness Verified 06/19/20 20:02 - Social History Does the pt smoke?: No Smoking Status: Never smoker Does the pt drink ETOH?: No Does the pt have substance abuse?: No - Immunizations Immunizations are current?: Yes - POLST Patient has POLST: No POLST Status: Full Code PD ED PE NORMAL - Vitals Vital signs reviewed: Yes (normal ) - General General: Alert and oriented X 3, No acute distress, Well developed/nourished - HEENT HEENT: Atraumatic, PERRL, EOMI - Cardiac Cardiac: RRR, No murmur - Respiratory Respiratory: No respiratory distress, Clear bilaterally, Other (both breasts are missing ) - Abdomen Abdomen: Soft, Non tender - Back Back: No CVA TTP, No spinal TTP - Derm Derm: Normal color, Warm and dry, No rash - Extremities Extremities: No deformity, No edema - Neuro Neuro: Alert and oriented X 3, 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, No motor deficit, No sensory deficit, Normal speech Eye Opening: Spontaneous Motor: Obeys Commands Verbal: Oriented GCS Score: 15 - Psych Psych: Normal mood, Normal affect Results - Vitals Vitals: Vital Signs - 24 hr 06/19/20 06/19/20 06/19/20 19:57 20:21 22:00 Temperature 36.2 C L Heart Rate 68 68 61 Respiratory 19 17 13 Rate Blood Pressure 129/65 O2 Saturation 97 94 94 Oxygen O2 Source Room air - EKG (time done) 2002 Rate: Rate (enter#) (67) Ischemia: Q waves Compare to prior EKG: Unchanged from prior EKG (SPT 06-11-20 no changes) Computer interpretation: Agree with computer - Rads (name of study) CTA chest Radiology: Prelim report reviewed Procedures - IVC sono (time) 2034 Bedside IVC sono: IVC measures (cm) (1.66), Euvolemia PD MEDICAL DECISION MAKING - ED course Complexity details: reviewed old records, reviewed results, re-evaluated patient, considered differential, d/w patient ED course: CT angiogram of the chest: Impression: No central or segmental pulmonary embolism. Evaluation of the subsegmental pulmonary arteries in the lower lobes is limited due to respiratory motion. For example, filling defect in the left lower lobe subsegmental pulmonary artery is likely secondary to motion, see above. Mild amount of groundglass opacity in the lower lobes is similar to the prior study and could be secondary to infection or edema. Consolidation with air bronchograms and bronchiectasis in the left upper lobe is similar to prior study and new since 2019. Question history of radiation therapy. Infiltration of the subcutaneous fat in the left chest wall is similar to the prior study. Question radiation therapy, surgery, infection or trauma. 65-year-old female with a history of aggressive breast cancer that is now in remission has undergone chemo and radiation and surgery and has some radiation damage to her upper lung field as well as to the chest wall itself. She has had a recent CT scan concerning for infection in the lower lobes and she was on a course of Levaquin which did not change this appearance. The patient's symptoms did not change. She has exertional dyspnea. There is no obvious pulmonary embolism and no significant clot burden if there is any. I do not suspect pulmonary embolism based on this study. I have discussed the case with the patient she has been on a course of Levaquin and we will change her antibiotic to Augmentin and she is given a dose of Rocephin here in the emergency department. She will follow up with her primary till radiographic resolution. Departure - Departure Disposition: 01 Home, Self Care Clinical Impression: Lower respiratory infection Condition: Stable Instructions: ED Pneumonia Adult Follow-Up: Jah Marie MD [Primary Care Provider] - Prescriptions: Amox/Clav 875/125 [Augmentin] 1 each PO Q12H #20 tablet Discharge Date/Time: 06/19/20 23:49
[2020-06-19] MEDS ORDERED: ONDANSETRON 4 MG/2 ML VIAL IVP STA (20:42)
[2020-06-19] MEDS ORDERED: IOVERSOL 320 100 ML VIAL IVP ONE ×2 (21:20→21:56)
[2020-06-19] MEDS ORDERED: LIDOCAINE 1% 2 ML VIAL MC ONE (23:01)
[2020-06-19] MEDS ORDERED: cefTRIAXone 1 GM VIAL IM STA (23:01)
--- NOTE | 2020-06-20 08:30 | CT Report ---
PROCEDURE: ANGIO CHEST W/WO INDICATIONS: soa elevated d-dimer CONTRAST: IV CONTRAST: Optiray 320 ml: 80 PO CONTRAST: *NO PO CONTRAST TECHNIQUE: After the administration of intravenous contrast, 2 mm thick sections acquired from the pulmonary api sayda to the posterior costophrenic angles. 3-dimensional maximum intensity projection (MIP) coronal a nd sagittal reformats were then acquired through the thorax. For radiation dose reduction, the follow ing was used: automated exposure control, adjustment of mA and/or kV according to patient size. COMPARISON: CT chest with contrast 06/11/2020, 05/14/2019. FINDINGS: Image quality: Good. Evaluation of the subsegmental pulmonary arteries cannot be performed. Respirato ry motion is present. Pulmonary arteries: Pulmonary arteries are normal in size, and demonstrate no intraluminal filling d efects to suggest central pulmonary embolism. Lungs and pleura: Left upper lobe consolidative opacity with air bronchograms is similar to 06/11/2020 and decreased compared to 05/14/2019. There are a few nodular ground glass opacities. For example: -Right upper lobe 5 mm, (6/54), previously 4 mm on 05/14/2019. -Right lower lobe 6 mm, (6/208), previously 1.8 cm on 06/11/2020. Decrease in size and likely infectiou s/inflammatory. -Left lower lobe subpleural, (/206), may be slightly increased but difficult to evaluate due to brandon on effect. Opacity was seen on CT 05/14/2019. No pleural effusions or pneumothorax. Central and peripheral airways are patent. Mediastinum: Heart size is normal, without pericardial effusion. No mediastinal or hilar adenopathy . Thoracic aorta is normal in caliber and enhancement. Esophagus is normal in caliber, with small h iatal hernia. Bones and chest wall: No suspicious bony lesions. Ribs and thoracic spine appear intact throughout. Thyroid is unremarkable No axillary or supraclavicular adenopathy. Left axillary clips. Postsurgi drew change in the left breast, similar the prior exam. Abdomen: Suspect hepatic steatosis. Cholelithiasis. 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 Visualized upper abdominal solid organs otherwise appear normal in the early arterial phase of enhancement. IMPRESSION: Evaluation of the subsegmental pulmonary arteries is limited mostly due to respiratory motion. 1. No central pulmonary embolism. 2. Unchanged consolidative opacity with air bronchograms in the left upper lobe. This is decreased co mpared to May 2019. 3. A few scattered areas of groundglass opacity which are overall felt to be stable or decreased. Thi s could be due to infectious/inflammatory etiology. Indolent neoplastic process could have a similar appearance. 4. Stable stranding in the left breast. Prior left axillary dissection. 5. Hepatic steatosis. Cholelithiasis. No significant discrepancy with the overnight pulmonary interpretation. Reviewed by: Raul Joe MD on 06/20/2020 8:29 AM PST Approved by: Raul Joe MD on 06/20/2020 8:29 AM PST Station ID: [id number]
== END 2020-06-19 23:49 | disposition home or self-care (01) ==
LOC: ED 19:48
DX: J22 Unspecified acute lower respiratory infection (principal); E11.42 Type 2 diabetes mellitus with diabetic polyneuropathy; I10 Essential (primary) hypertension; Z85.3 Personal history of malignant neoplasm of breast; Z79.84 Long term (current) use of oral hypoglycemic drugs; R06.09 Other forms of dyspnea
CPT/HCPCS: 36415; 71275; 80053; 83880; 85025; 85379; 93005; 96372; 96374; 99284; Q9967

== ENCOUNTER 2021-03-13 08:55 | Outpatient (CLI) | payer MEDICARE, MEDICAID ==
[2021-03-13 12:36] LABS: BUN - BLOOD UREA NITROGEN 19 mg/dL (6-20); CALCIUM 9.3 mg/dL (8.5-10.3); CARBON DIOXIDE - CO2 27 mmol/L (21-32); CHLORIDE 104 mmol/L (101-111); CHOL/HDL RATIO 4.1 (<4.4); CHOLESTEROL 178 mg/dL; CREATININE 0.5 mg/dL (0.4-1.0); GFR - MDRD 124 (>89); GLUCOSE 131 mg/dL (70-100); HDL CHOLESTEROL 43 mg/dL; LDL CHOLESTEROL,CALCULATED 112 mg/dL; LDL/HDL RATIO 2.6 (<4.4); POTASSIUM 4.3 mmol/L (3.5-5.0); SODIUM 140 mmol/L (135-145); TRIGLYCERIDES 116 mg/dL; VLDL CHOLESTEROL 23 mg/dL
[2021-03-13 12:39] LABS: CREATININE,URINE 111.5 mg/dL; MICROALBUM/CREATININE RATIO,UR 18.8 ug/mg (<30.0); MICROALBUMIN,URINE 2.1 mg/dL (0-300.0)
[2021-03-13 12:43] LABS: THYROID STIMULATING HORMONE 6.11 uIU/mL (0.34-5.60)
[2021-03-13 13:28] LABS: FREE T4 (FREE THYROXINE) 0.73 ng/dL (0.58-1.64)
[2021-03-13 13:32] LABS: ESTIMATED AVERAGE GLUCOSE 171 mg/dL (70-100); HEMOGLOBIN A1c% 7.6 % (4.27-6.07)
== END 2021-03-13 08:56 | disposition home or self-care (01) ==
LOC: LAB.N 08:55
PROVIDERS: ATTEND Internal Medicine
DX: I10 Essential (primary) hypertension (principal); E78.2 Mixed hyperlipidemia; E11.42 Type 2 diabetes mellitus with diabetic polyneuropathy
CPT/HCPCS: 36415; 80048; 80061; 82043; 82570; 83036; 83721; 84439; 84443

== ENCOUNTER 2021-06-24 10:20 | Outpatient (CLI) | payer MEDICARE, OTHER, MEDICAID ==
[2021-06-24 12:40] LABS: CREATININE,URINE 205.6 mg/dL; MICROALBUM/CREATININE RATIO,UR 48.6 ug/mg (<30.0)
[2021-06-24 13:31] LABS: THYROID STIMULATING HORMONE 3.71 uIU/mL (0.34-5.60)
[2021-06-24 13:37] LABS: ALBUMIN 3.7 g/dL (3.2-5.5); ALBUMIN/GLOBULIN RATIO 0.9 (1.0-2.2); ALKALINE PHOSPHATASE 87 IU/L (42-121); ALT ALANINE AMINOTRANSFERASE 26 IU/L (10-60); AST ASPARTATE AMINOTRANSFERASE 44 IU/L (10-42); BILIRUBIN,TOTAL 0.8 mg/dL (0.2-1.0); BUN - BLOOD UREA NITROGEN 14 mg/dL (6-20); CALCIUM 8.8 mg/dL (8.5-10.3); CARBON DIOXIDE - CO2 29 mmol/L (21-32); CHLORIDE 100 mmol/L (101-111); CHOL/HDL RATIO 3.2 (<4.4); CHOLESTEROL 118 mg/dL; CREATININE 0.7 mg/dL (0.4-1.0); GFR - MDRD 84 (>89); GLUCOSE 265 mg/dL (70-100); HDL CHOLESTEROL 37 mg/dL; LDL CHOLESTEROL,CALCULATED 52 mg/dL; LDL/HDL RATIO 1.4 (<4.4); POTASSIUM 3.8 mmol/L (3.5-5.0); SODIUM 140 mmol/L (135-145); TOTAL PROTEIN 7.6 g/dL (6.7-8.2); TRIGLYCERIDES 145 mg/dL; VLDL CHOLESTEROL 29 mg/dL
[2021-06-24 21:33] LABS: ESTIMATED AVERAGE GLUCOSE 192 mg/dL (70-100); HEMOGLOBIN A1c% 8.3 % (4.27-6.07)
== END 2021-06-24 10:21 | disposition home or self-care (01) ==
LOC: LAB.N 10:20
PROVIDERS: ATTEND Internal Medicine
DX: I10 Essential (primary) hypertension (principal); E78.2 Mixed hyperlipidemia; E11.42 Type 2 diabetes mellitus with diabetic polyneuropathy; E03.9 Hypothyroidism, unspecified
CPT/HCPCS: 36415; 80053; 80061; 82043; 82570; 83036; 83721; 84443

== ENCOUNTER 2021-09-27 17:44 | Outpatient (CLI) | payer MEDICARE, MEDICAID ==
--- NOTE | 2021-09-28 00:47 | XRAY Report ---
PROCEDURE: Hip w/Pelvis 2-3V RT INDICATIONS: RIGHT HIP PAIN TECHNIQUE: AP pelvis with AP and lateral views of the right hip acquired. COMPARISON: 04/17/2018. FINDINGS: Bones: No fractures or dislocations. A right total hip prosthesis appears congruent. No definite navdeep picious periprosthetic lucencies. Pelvic ring appears intact. The visualized left hip demonstrates mo derate to severe axial joint space narrowing with subchondral sclerosis and osteophytosis. Soft tissues: The visualized bowel gas pattern is normal. No suspicious soft tissue calcifications. IMPRESSION: 1. No fracture or dislocation. 2. No definite suspicious periprosthetic lucencies to suggest loosening or infection. Reviewed by: Agustin Leyav MD on 09/28/2021 12:46 AM PDT Approved by: Agustin Leyva MD on 09/28/2021 12:46 AM PDT Station ID: [id number]
--- NOTE | 2021-09-28 00:58 | XRAY Report ---
PROCEDURE: Lumbar Spine 2 View INDICATIONS: DEGENERATIVE DISC DISEASE TECHNIQUE: 3 views of the lumbar spine were acquired. COMPARISON: MRI lumbar spine 11/29/2016. FINDINGS: Bones: 5 [id number] vertebrae are present. There is minimal retrolisthesis at T12-L1. Mild ret rolisthesis demonstrated at L1-L2, L2-L3, and L3-L4 measuring up to 0.6 cm at L1-2 and L2-L3. There i s anterolisthesis of L4 and L5 measuring approximately 0.5 cm and L5 on S1 measuring approximately 0. 8 cm. There is moderate facet arthropathy in the lower lumbar spine. Multilevel degenerative disc dis ease is also demonstrated including mild to moderate degeneration at T12-L1 and L1-L2. No vertebral b melissa compression fractures. No suspicious bony lesions. A right hip prosthesis is partially visualiz ed. Soft tissues: Overlying bowel gas pattern is normal. No suspicious soft tissue calcifications. IMPRESSION: 1. Multilevel retrolisthesis in the upper lumbar spine and anterolisthesis in the lower lumbar spine. 2. Multilevel degenerative disc disease including mild to moderate degeneration at T12-L1 and L1-L2. 3. Moderate facet arthropathy in the lower lumbar spine. Reviewed by: Agustin Leyva MD on 09/28/2021 12:56 AM PDT Approved by: Agustin Leyva MD on 09/28/2021 12:56 AM PDT Station ID: [id number]
== END 2021-09-27 17:45 | disposition home or self-care (01) ==
LOC: DI 17:44
PROVIDERS: ATTEND Family Medicine
DX: M25.551 Pain in right hip (principal); Z96.641 Presence of right artificial hip joint; M51.36 Other intervertebral disc degeneration, lumbar region; M47.816 Spondylosis without myelopathy or radiculopathy, lumbar region; M43.16 Spondylolisthesis, lumbar region; M51.35 Other intervertebral disc degeneration, thoracolumbar region

== ENCOUNTER 2021-09-28 07:53 | Outpatient (CLI) | payer MEDICARE, MEDICAID ==
[2021-09-28 12:04] LABS: ALBUMIN 3.4 g/dL (3.2-5.5); ALBUMIN/GLOBULIN RATIO 0.7 (1.0-2.2); BILIRUBIN,TOTAL 0.7 mg/dL (0.2-1.0); CALCIUM 8.9 mg/dL (8.5-10.3); CREATININE 0.6 mg/dL (0.4-1.0); POTASSIUM 4.5 mmol/L (3.5-5.0)
[2021-09-28 12:31] LABS: ESTIMATED AVERAGE GLUCOSE 154 mg/dL (70-100)
== END 2021-09-28 07:54 | disposition home or self-care (01) ==
LOC: LAB.N 07:53
PROVIDERS: ATTEND Internal Medicine
DX: E11.42 Type 2 diabetes mellitus with diabetic polyneuropathy (principal)
CPT/HCPCS: 36415; 80053; 83036

== ENCOUNTER 2021-10-08 10:04 | Outpatient (CLI) | payer MEDICARE, MEDICAID ==
--- NOTE | 2021-10-08 15:27 | Ultrasound Report ---
PROCEDURE: Pelvic Limited or F/U INDICATIONS: GROIN PAIN TECHNIQUE: Real-time transabdominal scanning was performed of the pelvic organs, with image documentation. COMPARISON: None. FINDINGS: Ultrasound was performed in the right groin with and without Valsalva. There is a reducible fat-containing inguinal hernia in the right groin measuring 4.6 x 1.2 x 6.6 cm. There defect measure s 1.1 cm. IMPRESSION: Fat-containing inguinal hernia in the right groin, which is reducible. Reviewed by: Breana Lerma MD on 10/08/2021 3:26 PM PDT Approved by: Breana Lerma MD on 10/08/2021 3:26 PM PDT Station ID: [id number]
== END 2021-10-08 10:05 | disposition home or self-care (01) ==
LOC: DI 10:04
PROVIDERS: ATTEND Internal Medicine
DX: K40.90 Unilateral inguinal hernia, without obstruction or gangrene, not specified as recurrent (principal)

== ENCOUNTER 2021-11-05 11:38 | Emergency (ER) | payer MEDICARE, MEDICAID ==
--- OUTSIDE RECORDS SUMMARY | 2021-11-05 11:49 | EXTERNAL MEDICAL SUMMARY RPT | Continuity of Care Document ---
:Unknown Demographics Phone Unavailable Preferred Language Tajik Marital Status Never Holiness Affiliation Unknown Race Unknown Ethnic Group Unknown Author Organization [facility] Address [address] [phone] Phone Allergies No information. Encounters No information. Functional Status No information. Immunizations No information. Medications No information. Problems No information. Procedures No information. Results/Labs test date author facility value unit interpret ation Result panel 1 (unknown) (no (unknown) (unknown) (no value) (units (unk nown) date) unknown) (unknown) (no (unknown) (unknown) [address] [place] [address] (units (unknown) date) unknown) (unknown) (no (unknown) (unknown) [place], [place] (units ( unknown) date) [id number] unknown) (unknown) (no (unknown) (unknown) Merged With [facility] (units (unknown) date) unknown) (unknown) (no (unknown) (unknown) Magnetic (units (unkno wn) date) Resonance Report unknown) (unknown) (no (unknown) (unknown) Signed (units (unkno wn) date) unknown) (unknown) (no (unknown) (unknown) (no value) (units (unk nown) date) unknown) (unknown) (no (unknown) (unknown) 10/14/21 (units (unkno wn) date) unknown) (unknown) (no (unknown) (unknown) Alignment and (units ( unknown) date) curvature: There unknown) is unchanged 3 mm retrolisthesis of L1 on L2, (unknown) (no (unknown) (unknown) Approved by: (units (u nknown) date) Tracie Jama M.D. unknown) on 10/14/2021 at 17:31 (unknown) (no (unknown) (unknown) COMPARISON: (units (un known) date) Merged With [facility], unknown) MR, MR LUMBAR SPINE WO CON, 11/03/2019, 10:50. (unknown) (no (unknown) (unknown) Dictated by: (units (u nknown) date) Tracie Jama M.D. unknown) on 10/14/2021 at 17:26 (unknown) (no (unknown) (unknown) Discs: Multilevel (units (unknown) date) [id number] unknown) disc desiccation is present moderate to (unknown) (no (unknown) (unknown) FINDINGS: (units (unkn own) date) unknown) (unknown) (no (unknown) (unknown) IMPRESSION: (units (un known) date) unknown) (unknown) (no (unknown) (unknown) INDICATIONS: Low (units (unknown) date) back pain, unknown) unspecified (unknown) (no (unknown) (unknown) Image quality: (units (unknown) date) Excellent. unknown) (unknown) (no (unknown) (unknown) L1-L2: Mild disc (units (unknown) date) bulge with mild unknown) spinal stenosis. [id number] bilateral (unknown) (no (unknown) (unknown) L2-L3: Mild disc (units (unknown) date) bulge with mild unknown) spinal stenosis. [id number]-[id number] bilateral (unknown) (no (unknown) (unknown) L3-L4: Mild disc (units (unknown) date) bulge with unknown) rzxw-lf-dgnbgygs spinal stenosis. Mild bilateral (unknown) (no (unknown) (unknown) L4-L5: Mild disc (units (unknown) date) bulge with unknown) moderate spinal stenosis. Mild bilateral (unknown) (no (unknown) (unknown) L5-S1. (units (unkno wn) date) unknown) (unknown) (no (unknown) (unknown) L5-S1: Mild disc (units (unknown) date) bulge with mild unknown) spinal stenosis. Moderate to severe right (unknown) (no (unknown) (unknown) Marrow: Marrow (units (unknown) date) is of normal unknown) overall signal. Focus of increased T1 and T2 (unknown) (no (unknown) (unknown) Multilevel disc (units (unknown) date) bulges, spinal unknown) stenosis and foraminal narrowing, all stable (unknown) (no (unknown) (unknown) No interval (units (un known) date) change. unknown) (unknown) (no (unknown) (unknown) Noncontrast (units (un known) date) sagittal T1 spin unknown) echo and T2 fast spin echo, sagittal STIR, axial (unknown) (no (unknown) (unknown) Paraspinous soft (units (unknown) date) tissues: No unknown) paravertebral masses or abnormal enhancement. (unknown) (no (unknown) (unknown) Spinal cord: (units (u nknown) date) Conus medullaris unknown) terminates at the L2 level. Visualized spinal (unknown) (no (unknown) (unknown) TECHNIQUE: (units (unk nown) date) unknown) (unknown) (no (unknown) (unknown) axial T1 spin (units ( unknown) date) echo with fat unknown) saturation through the lumbar spine. (unknown) (no (unknown) (unknown) change. (units (unkno wn) date) unknown) (unknown) (no (unknown) (unknown) demonstrates (units (u nknown) date) normal signal, unknown) without suspicious enhancement. (unknown) (no (unknown) (unknown) fast spin echo (units (unknown) date) may be performed. unknown) After the administration of contrast, (unknown) (no (unknown) (unknown) fast spin echo (units (unknown) date) through the lumbar unknown) spine. In cases with scoliosis, additional (unknown) (no (unknown) (unknown) left foraminal (units (unknown) date) narrowing with unknown) facet and ligamentum flavum hypertrophy. No (unknown) (no (unknown) (unknown) mm retrolisthesis (units (unknown) date) of L2 on L3, L3 on unknown) L4 and 2 mm anterolisthesis of L4 on L5. (unknown) (no (unknown) (unknown) narrowing with (units (unknown) date) facet and unknown) ligamentum flavum hypertrophy. Minimal epidural (unknown) (no (unknown) (unknown) narrowing with (units (unknown) date) facet and unknown) ligamentum flavum hypertrophy. No interval change. (unknown) (no (unknown) (unknown) narrowing with (units (unknown) date) facet and unknown) ligamentum flavum hypertrophy. No interval change. (unknown) (no (unknown) (unknown) present at T11 (units (unknown) date) likely hemangioma. unknown) No acute vertebral body compression (unknown) (no (unknown) (unknown) prior exam. (units (un known) date) unknown) (unknown) (no (unknown) (unknown) suspicious marrow (units (unknown) date) enhancement. unknown) (unknown) (no (unknown) (unknown) [id number] (units (unkno wn) date) unknown) (unknown) (no (unknown) (unknown) Accession Number: (units (unknown) date) [id number] unknown) (unknown) (no (unknown) (unknown) Age/Sex: 66 / F (units (unknown) date) Date of Service: unknown) (unknown) (no (unknown) (unknown) : 1955 (units (unknown) date) Acct:[id number] unknown) (unknown) (no (unknown) (unknown) L5 on S1, 2 (units (un known) date) unknown) (unknown) (no (unknown) (unknown) Loc: [facility] (units (unkno wn) date) unknown) (unknown) (no (unknown) (unknown) Ordering (units (unkno wn) date) Provider: unknown) Destin Harper MD (unknown) (no (unknown) (unknown) PROCEDURE: MR (units (unknown) date) LUMBAR SPINE WO/W unknown) CON (unknown) (no (unknown) (unknown) Patient: (units (unkno wn) date) Kristie Lantigua unknown) MR#: [id number] (unknown) (no (unknown) (unknown) Procedure: MR (units ( unknown) date) lumbar spine wo/w unknown) con (unknown) (no (unknown) (unknown) T1 and T2 (units (unkn own) date) unknown) (unknown) (no (unknown) (unknown) and mild (units (unkno wn) date) unknown) (unknown) (no (unknown) (unknown) compared to (units (un known) date) unknown) (unknown) (no (unknown) (unknown) cord (units (unkno wn) date) unknown) (unknown) (no (unknown) (unknown) coronal T2 (units (unk nown) date) unknown) (unknown) (no (unknown) (unknown) foraminal (units (unkn own) date) unknown) (unknown) (no (unknown) (unknown) fractures. No (units (unknown) date) unknown) (unknown) (no (unknown) (unknown) interval (units (unkno wn) date) unknown) (unknown) (no (unknown) (unknown) lipomatosis. (units (u nknown) date) unknown) (unknown) (no (unknown) (unknown) sagittal and (units (u nknown) date) unknown) (unknown) (no (unknown) (unknown) severe at (units (unkn own) date) unknown) (unknown) (no (unknown) (unknown) signal is (units (unkn own) date) unknown) Social History No information. Vital Signs No information.
[2021-11-05 12:17] LABS: BILIRUBIN,URINE NEGATIVE (NEGATIVE); GLUCOSE, URINE (UA) NEGATIVE (NEGATIVE); KETONES,URINE (UA) NEGATIVE (NEGATIVE); LEUKOCYTE ESTERASE, URINE TRACE (NEGATIVE); NITRITE,URINE NEGATIVE (NEGATIVE); OCCULT BLOOD,URINE NEGATIVE (NEGATIVE); PROTEIN,URINE NEGATIVE (NEGATIVE); UROBILINOGEN,URINE 0.2 (NORMAL) E.U./dL (NORMAL)
[2021-11-05 12:19] LABS: CLARITY,URINE CLEAR (CLEAR)
[2021-11-05 12:24] LABS: BASOPHILS % (AUTO) 0.5 %; EOSINOPHILS # (AUTO) 0.1 10^3/uL (0.0-0.7); EOSINOPHILS % (AUTO) 0.9 %; HCT - HEMATOCRIT 36.9 % (37.0-47.0); LYMPHOCYTES # (AUTO) 1.4 10^3/uL (1.5-3.5); LYMPHOCYTES % (AUTO) 23.6 %; MEAN CORPUSCULAR HEMOGLOBIN 30.1 pg (27.0-31.0); MEAN CORPUSCULAR HGB CONC 32.5 g/dL (32.0-36.0); MEAN CORPUSCULAR VOLUME 92.5 fL (81.0-99.0); MEAN PLATELET VOLUME 10.2 fL (7.9-10.8); MONOCYTES # (AUTO) 0.8 10^3/uL (0.0-1.0); MONOCYTES % (AUTO) 14.3 %; NEUTROPHILS # (AUTO) 3.6 10^3/uL (1.5-6.6); NEUTROPHILS % (AUTO) 60.5 %; PLT - PLATELET COUNT 223 10^3/uL (130-450); RED BLOOD COUNT 3.99 10^6/uL (4.20-5.40); RED CELL DISTRIBUTION WIDTH 14.6 % (12.0-15.0); WHITE BLOOD COUNT 5.9 x10^3/uL (4.8-10.8)
[2021-11-05 12:35] LABS: BACTERIA,URINE Few /HPF (None Seen); MUCUS,URINE Moderate Strands; RBC,URINE None Seen /HPF (0-5); SQUAMOUS EPITHELIAL CELL,UR MANY Squamous (<= Few)
[2021-11-05] MEDS ORDERED: HYDROmorphone 1 MG/ML CARPUJECT IM STA (12:36)
[2021-11-05 12:37] LABS: ALBUMIN 3.8 g/dL (3.2-5.5); ALBUMIN/GLOBULIN RATIO 0.9 (1.0-2.2); BILIRUBIN,TOTAL 0.8 mg/dL (0.2-1.0); CALCIUM 9.6 mg/dL (8.5-10.3); CREATININE 0.7 mg/dL (0.4-1.0); POTASSIUM 4.2 mmol/L (3.5-5.0); TOTAL PROTEIN 8.1 g/dL (6.7-8.2)
--- NOTE | 2021-11-05 12:38 | ED Physician Documentation ---
History of Present Illness - Stated complaint Stated Complaint: ABD PAIN - Chief complaint Chief Complaint: Abd Pain - Additonal information Additional information: 66-year-old female presents emergency department for evaluation of cute onset right lower quadrant abdominal pain. Symptoms began yesterday. Pain is constant nonradiating. No fevers, vomiting or diarrhea. She was incidentally seen by Dr. Endy Du yesterday in office for a known right inguinal hernia. She reports that the cause of this pain is distinctly separate from her known inguinal hernia. She does have a history of diabetes and hypertension. She is not antico agulated. She also has remote history of breast cancer. Followed by our Dr. Harika Lopez. Patient is in remission. Patient also has a history of chronic lower lumbar pain thought due to be degenerative disc disease. She underwent an MRI recently and is being followed by an orthopedic personalization specialist. Past surgical abdominal history is most significant for tubal ligation only. Review of Systems Constitutional: denies: Fever, Chills Eyes: reports: Reviewed and negative Nose: reports: Reviewed and negative Throat: reports: Reviewed and negative Cardiac: reports: Reviewed and negative GI: reports: Abdominal Pain. denies: Nausea, Vomiting, Constipation, Diarrhea, Hematemesis : reports: Reviewed and negative Skin: reports: Reviewed and negative PD PAST MEDICAL HISTORY - Past Medical History Cardiovascular: Hypertension, High cholesterol, Peripheral Vascular Disease, Murmur Respiratory: Sleep apnea, CPAP use Neuro: Headaches, Peripheral neuropathy, Fainting Endocrine/Autoimmune: Type 2 diabetes GI: GERD, Cholelithiasis GRAIN UNLOADER: Miscarriage(s), Breast cancer : None HEENT: Chronic vision loss, Chronic sinusitis Psych: Anxiety Musculoskeletal: Osteoarthritis Derm: None, Other - Past Surgical History Past Surgical History: Yes Ortho: Spine surgery /GRAIN UNLOADER: Tubal ligation, Other - Present Medications Home Medications: Ambulatory Orders Medication Instructions Recorded Confirmed Sertraline HCl 150 mg PO DAILY 06/27/18 10/14/21 metFORMIN [Glucophage] 1,000 mg PO BIDWM 06/27/18 10/14/21 Cholecalciferol (Vitamin D3) 2,000 unit PO DAILY 05/10/19 10/14/21 [Vitamin D3] Metoprolol Tartrate 50 mg PO DAILY 05/10/19 10/14/21 Multivitamin [Multivitamins] 1 tab PO DAILY 05/10/19 10/14/21 Vitamin B Complex/Folic Acid 1 tab PO DAILY 05/10/19 10/14/21 [Vitamin B Complex Tablet] Pregabalin 150 mg PO TID 07/31/19 10/14/21 Celecoxib 200 mg PO DAILY 10/16/19 10/14/21 Levothyroxine Sodium [Levoxyl] 25 mcg PO DAILY 04/16/21 10/14/21 Rosuvastatin Calcium [Crestor] 20 mg PO DAILY 04/16/21 10/14/21 Irbesartan [Avapro] 150 mg PO DAILY 10/14/21 10/14/21 Semaglutide [Ozempic] 1 mg SQ UD 10/14/21 10/14/21 oxyCODONE [Roxicodone] 5 mg PO TID PRN #20 tablet 11/05/21 - Allergies Allergies/Adverse Reactions: Allergies Allergy/AdvReac Type Severity Reaction Status Date / Time anastrozole Allergy Unknown Verified 06/20/20 07:31 hydroxyzine Allergy Itching Verified 06/19/20 20:02 lorazepam Allergy Emesis Verified 06/19/20 20:02 meclizine Allergy Emesis Verified 06/19/20 20:02 codeine AdvReac Nausea Verified 06/19/20 20:02 gabapentin AdvReac Dizziness Verified 06/19/20 20:02 - Social History Does the pt smoke?: No Smoking Status: Never smoker Does the pt drink ETOH?: No Does the pt have substance abuse?: No - Immunizations Immunizations are current?: Yes - POLST Patient has POLST: No POLST Status: Full Code PD ED PE EXPANDED - General General: Alert, Other (Obese) - HEENT HEENT: Atraumatic, PERRL - Cardiac Cardiac: Regular Rate, Radial strong equal, Pedal strong equal, Cap refill < 2 sec. No: Murmur Present - Respiratory Respiratory: Clear to ausultation suad. No: Distress, Labored - Abdomen Abdomen: Normal Bowel sounds, Tender to palpation (Morbidly obese abdomen. Guarding and rebound to the right lower quadrant of the abdomen. Exam is somewhat limited by body habitus.), RLQ - Back Back: Other (Chronic lower lumbar back pain. Patient ambulates using a cane with no assistance. Antalgic gait) - Derm Derm: Other (Radiation siddiqui to the chest and left breast are noted. Chronic appearing in nature) - Extremities Extremities: Normal, Other (Peripheral vascular disease as evidenced by hemosiderin staining of both lower legs.). No: Deformity, Tenderness - Neuro Neuro: Alert and Oriented X 3, CNII-XII intact - GCS Eye Opening: Spontaneous Motor: Obeys Commands Verbal: Oriented Total: 15 Results - Vitals Vitals: Vital Signs - 24 hr 11/05/21 11/05/21 11/05/21 11:45 12:45 14:00 Temperature 37.4 C Heart Rate 73 71 52 L Respiratory 18 18 14 Rate Blood Pressure 129/67 123/101 H 117/66 O2 Saturation 93 95 95 11/05/21 11/05/21 16:00 18:00 Temperature Heart Rate 122 H 57 L Respiratory 18 Rate Blood Pressure 122/95 H O2 Saturation 94 95 Oxygen O2 Source Room air - Labs Labs: Laboratory Tests 11/05/21 11/05/21 11/05/21 12:06 12:20 12:20 WBC 5.9 RBC 3.99 L Hgb 12.0 Hct 36.9 L MCV 92.5 MCH 30.1 MCHC 32.5 RDW 14.6 Plt Count 223 MPV 10.2 Neut # (Auto) 3.6 Lymph # (Auto) 1.4 L [place] # (Auto) 0.8 Eos # (Auto) 0.1 Baso # (Auto) 0.0 Absolute Nucleated RBC 0.00 Nucleated RBC % 0.0 Sodium 141 Potassium 4.2 Chloride 106 Carbon Dioxide 26 Anion Gap 9.0 BUN 20 Creatinine 0.7 Estimated GFR (MDRD) 84 L Glucose 138 H Calcium 9.6 Total Bilirubin 0.8 AST 47 H ALT 24 Alkaline Phosphatase 194 H Total Protein 8.1 Albumin 3.8 Globulin 4.3 H Albumin/Globulin Ratio 0.9 L Lipase 52 H Urine Color YELLOW Urine Clarity CLEAR Urine pH 6.0 Ur Specific Bruin 1.020 Urine Protein NEGATIVE Urine Glucose (UA) NEGATIVE Urine Ketones NEGATIVE Urine Occult Blood NEGATIVE Urine Nitrite NEGATIVE Urine Bilirubin NEGATIVE Urine Urobilinogen 0.2 (NORMAL) Ur Leukocyte Esterase TRACE H Urine RBC None Seen Urine WBC 6-10 H Ur Squamous Epith Cells MANY Squamous H Urine Bacteria Few Urine Mucus Moderate Strands Ur Microscopic Review INDICATED Urine Culture Comments NOT INDICATED - Rads (name of study) Abd/pelvis Radiology: Final report received (Suspected mixed sclerotic lytic lesions of the right obturator ring and possible associated nondisplaced fracture. Multiple new hepatic lesions. Increased size of right common iliac lymph node chain. Possible small new lung nodules. Findings suspicious for metastatic disease) CT chest w Radiology: Final report received (Interval development of 2 or 3 mm pulmonary nodules in the right lung of uncertain etiology. Chronic right subclavian vein occlusion. Cholelithiasis.) Abd/pelvis w Radiology: Final report received (Suspected interval development of extensive hepatic metastatic disease. Some of the lesions are clearly delineated. Most are quite subtle. Development of post caval adenopathy. Bony metastatic disease.) PD MEDICAL DECISION MAKING - ED course Complexity details: reviewed old records, reviewed results, re-evaluated kristopher colindres/w reservoir engineering consultant (John) ED course: 66-year-old female who has a remote history of breast cancer presents emergency department with acutely worsening right lower quadrant pain. She has been recently diagnosed with an inguinal hernia as well though this pain location is different. There have been no fevers or vomiting. With regards to the breast cancer she is followed by Dr. Harika Lopez through our [facility]. The patient reports that at her last visit in early October she was told that her tumor markers had increased and some follow-up labs were obtained yesterday. Unfortunately on today's CT imaging we do see findings of extensive metastasis. Subsequently we did find lesions within the liver as well as a Sclerotic lesion On the right obturator ring with a possibly associated nondisplaced fracture. This was discussed with Dr. Duggan of orthopedic surgeon who reports that these are nonoperative leave managed. She can be weightbearing as tolerated wit h analgesia. CT of the chest did show a chronically obstructed right subclavian vein. Patient reported to me that she had been told this before. Therefore anticoagulation was not initiated today I did discuss the CT findings for concerns of metastatic disease with her oncologist Dr. Parry. She did request CT and abdominal imaging with contrast for further evaluation. This was completed. There are multiple pulmonary nodules noted as well as extensive metastatic disease again noted in the liver. Patient will follow up with Dr. Corea next week. A prescription for oxycodone is sent to her pharmacy for pain control. Emergent return precautions were discussed. I am prescribing a short course of short-acting opioid pain medication for this patient. I have reviewed the patients RN HOUSE SUPERVISOR and no concerning findings were noted. I have discussed that the opioids are for short term therapy only, and will not be refilled from the ED. Departure - Departure Disposition: 01 Home, Self Care Clinical Impression: Metastatic breast cancer, Liver metastasis Chronic occlusion of subclavian vein Qualifiers: Laterality: right Qualified Code(s): I82.B29 - Chronic embolism and thrombosis of unspecified subclavian vein Pelvic ring fracture Qualifiers: Encounter type: initial encounter Fracture type: closed Qualified Code(s): S32.810A - Multiple fractures of pelvis with stable disruption of pelvic ring, initial encounter for closed fracture Prescriptions: oxyCODONE [Roxicodone] 5 mg PO TID PRN #20 tablet PRN Reason: Pain Comments: Kristie unfortunately the CT scanning today shows that you have metastatic cancer that has traveled to your liver and your bones. I have spoken with Dr. Lopez. She is arranging to have you seen next week in the clinic for follow-up. Unfortunately the CT also shows that you have a right obturator ring fracture. This is the type of fracture that can be allowed to be weightbearing as tolerated and is typically managed without any surgery. But you do have a fracture because of cancer to the bone. I am sending a prescription for some oxycodone to the pharmacy. It may make you constipated so use MiraLAX. If at any point you find you are having difficulty breathing, you have leg swelling, chest pain, uncontrolled nausea or vomiting then please return immediately to the ER for repeat evaluation
[2021-11-05] MEDS ORDERED: KETOROLAC 30 MG/ML VIAL IM STA (13:00)
[2021-11-05] MEDS ORDERED: KETOROLAC 30 MG/ML VIAL IVP STA (13:35)
--- NOTE | 2021-11-05 14:38 | CT Report ---
PROCEDURE: Abdomen/Pelvis WO INDICATIONS: RLQ abd pain; known inguinal hernia TECHNIQUE: Noncontrast 5 mm thick sections acquired from the diaphragms to the symphysis. 5 mm coronal and sagi ttal reformats were then performed. For radiation dose reduction, the following was used: automated exposure control, adjustment of mA and/or kV according to patient size. COMPARISON: 02/20/2019 FINDINGS: Image quality: Excellent. ABDOMEN: Lung bases: Tiny right lung base nodules, not definitely present previously (for example 07/31). Trace atelectasis. Heart size is normal. Small hiatal hernia and distal esophageal fluid. Solid organs: Within the limits of noncontrast CT, there are numerous new hepatic lesions. For exampl e left lobe lesion (06/29) measures about 6 x 31 mm. Gallbladder cholelithiasis Pancreas is normal in contours. No adrenal nodules. Kidneys are normal in size, without hydronephrosis or nephrolithiasis. 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 Peritoneum and bowel: Colonic diverticula. The appendix is short and normal. No bowel obstruction. Nodes and vessels: No retroperitoneal or mesenteric adenopathy by size criteria. Aorta and inferior vena cava are normal in caliber. Miscellaneous: Fat-containing umbilical hernia. PELVIS: Genitourinary: Bladder wall thickness is normal. Miscellaneous: Increased size of the right common iliac chain node () measuring 11 mm in short ax is. Bones: Right hip arthroplasty. Increased sclerotic appearance, suspected lytic lesion and nondisplace d pathologic fracture () of the right obturator ring. Lumbosacral spondylosis. IMPRESSION: Suspected mixed sclerotic lytic lesion of the right obturator ring and a possible associated nondispl aced fracture. Multiple new hepatic lesions. Increased size of a right common iliac chain lymph node. Possible small new lung nodules. These findings are suspicious for metastatic disease. Further contrast enhanced imaging is recommende d. Discussed with Siena at 2:30pm. Reviewed by: Jhon Arredondo MD on 11/05/2021 2:36 PM PDT Approved by: Jhon Arredondo MD on 11/05/2021 2:36 PM PDT Station ID: [id number]
[2021-11-05] MEDS ORDERED: traMADol 50 MG TABLET PO STA (16:16)
[2021-11-05] MEDS ORDERED: SODIUM CHLORIDE 0.9% 1,000 ML IV STA (16:16)
--- NOTE | 2021-11-05 17:40 | CT Report ---
PROCEDURE: CHEST W INDICATIONS: staging for metastatic disease CONTRAST: IV CONTRAST: Optiray 320 ml: 100 PO CONTRAST: *NO PO CONTRAST TECHNIQUE: After the administration of intravenous contrast, 1 mm axial images were acquired from the pulmonary apices through the posterior costophrenic angles. Axial 5 mm soft tissue kernel reconstructions were performed as well as 8 mm axial MIP and coronal and sagittal 5 mm reformations. For radiation dose reduction, the following was used: automated exposure control, adjustment of mA and/or kV according to patient size. COMPARISON: CT chest with contrast dated 06/11/2020, CT abdomen and pelvis from today FINDINGS: Image quality: Excellent. Lungs and pleura: No acute air space opacities. Chronic volume loss and traction bronchiectasis invo lving a portion of the left upper lobe. Previous patchy multifocal opacities in the medial right lung base have resolved. A minimal pleural-based density in the right lower lobe on current image 147/3 i s stable. A 2 or 3 mm pulmonary nodule in the right lower lobe on image 185/3 is new compared to the previous study, and is of uncertain etiology. No other new or increasing pulmonary nodules. No pleura l effusions or pneumothorax. Central and peripheral airways are patent and normal in caliber. Mediastinum: Heart size is normal. No pericardial effusion. No mediastinal or hilar adenopathy by size criteria. Thoracic aorta and central pulmonary arteries are normal in size. Esophagus is zane l in caliber. No hiatal hernia. Bones and chest wall: No suspicious bony lesions. No vertebral body compression fractures. No axil jackie or supraclavicular adenopathy by size criteria. The thyroid is normal in size and there are no incidental findings.. Chronically occluded right subclavian vein with extensive right chest collatera ls. The right arm was used for the injection site. Breasts are surgically absent. Abdomen: Numerous calcified gallstones. Upper abdominal bowel loops are normal in caliber. IMPRESSION: 1. Interval development of a 2 or 3 mm pulmonary nodule in the right lung, of uncertain etiology. 2. Chronic right subclavian vein occlusion. 3. Cholelithiasis. Comment: Please refer to a separate report for findings in the abdomen and pelvis. CLINICAL RECOMMENDATION STATEMENTS: In patients <35 years with an ITN detected on CT, MRI, or extrathyroidal ultrasound, the Committee re commends further evaluation with dedicated thyroid ultrasound if the nodule is "e1 cm and has no susp icious imaging features, and if the patient has normal life expectancy. In patients "e35 years with an ITN detected on CT, MRI, or extrathyroidal ultrasound, the Committee r ecommends further evaluation with dedicated thyroid ultrasound if the nodule is "e1.5 cm and has no s uspicious imaging features, and if the patient has normal life expectancy. (ACR, 2014) Reviewed by: Deonte Nelson MD on 11/05/2021 5:39 PM PDT Approved by: Deonte Nelson MD on 11/05/2021 5:39 PM PDT Station ID: [id number]
--- NOTE | 2021-11-05 17:48 | CT Report ---
PROCEDURE: Abdomen/Pelvis W INDICATIONS: staging exam; metastatic disease CONTRAST: IV CONTRAST: Optiray 320 ml: 100 PO CONTRAST: *NO PO CONTRAST TECHNIQUE: After the administration of intravenous contrast, 5 mm thick sections acquired from the diaphragms to the symphysis. 5 mm thick coronal and sagittal reformats were acquired. For radiation dose reducti on, the following was used: automated exposure control, adjustment of mA and/or kV according to gary ent size. COMPARISON: Noncontrast CT scan of the abdomen and pelvis from today, CT of the abdomen and pelvis d ated 05/14/2019 FINDINGS: Image quality: Excellent. ABDOMEN: Lung bases: Lung bases are clear. Heart size is normal. Solid organs: Numerous low density areas in the liver are consistent with interval development of ext ensive hepatic metastatic disease. [place] lesions are as follows: Liver lesion 1: Image 23/3, left lobe lateral segment, 3.1 x 2.1 cm. Liver lesions 2 and 3: Both in the left lobe on image 17/3, measuring 2.5 cm and 1.7 cm respectively. Liver lesion 4: Right lobe, image 18/3, 1.4 cm. Liver lesion 5: Right lobe, image 35/3:2.1 cm. The liver lesions are ill-defined and difficult to separate from normal hepatic parenchyma. It is fel t that there are likely extensive liver lesions. Spleen is unremarkable. Gallbladder contains numerous tiny gallstones. Biliary system is non dilated . Pancreas enhances normally. No adrenal nodules. Kidneys demonstrate normal size and enhancement, without hydronephrosis. Peritoneum and bowel: Bowel loops demonstrate normal wall thickness and caliber. No free fluid or a ir. Nodes and vessels: A portacaval lymph node is now present measuring approximately 2.4 x 1.8 cm. Aorta and inferior vena cava are normal in size. Miscellaneous: No ventral hernias. PELVIS: Genitourinary: Bladder wall thickness is normal. Miscellaneous: No inguinal hernias or adenopathy. Bones: As stated in the prior report from today, there is a mixed sclerotic lytic lesion of the right obturator ring. There is a associated fracture. Remote total right hip arthroplasty. IMPRESSION: 1. Suspected interval development of extensive hepatic metastatic disease. Some of the lesions are cl early delineated. Most are quite subtle. 2. Development of portacaval adenopathy. 3. Bony metastatic disease. Comment: Perhaps multiphase liver MRI may be helpful to better evaluate the extent of liver metastati c disease. Reviewed by: Deonte Nelson MD on 11/05/2021 5:47 PM PDT Approved by: Deonte Nelson MD on 11/05/2021 5:47 PM PDT Station ID: [id number]
[2021-11-05 19:14] VITALS: BP 138/69
== END 2021-11-05 19:35 | disposition home or self-care (01) ==
LOC: ED 11:38
DX: S32.810A Multiple fractures of pelvis with stable disruption of pelvic ring, initial encounter for closed fracture (principal); X58.XXXA Exposure to other specified factors, initial encounter; C79.81 Secondary malignant neoplasm of breast; C78.7 Secondary malignant neoplasm of liver and intrahepatic bile duct; I82.B29 Chronic embolism and thrombosis of unspecified subclavian vein; I10 Essential (primary) hypertension; E11.42 Type 2 diabetes mellitus with diabetic polyneuropathy; Z79.84 Long term (current) use of oral hypoglycemic drugs
CPT/HCPCS: 36415; 71260; 74176; 74177; 80053; 81001; 83690; 85025; 96374; 99284; A9270; Q9967; 81003; 87086

== ENCOUNTER 2021-12-02 08:23 | Outpatient (CLI) | payer MEDICARE, MEDICAID ==
[2021-12-02] MEDS ORDERED: LACTATED RINGERS 1,000 ML IV ONE ×2 (09:14→10:50)
--- NOTE | 2021-12-02 09:17 | CONSULTATION NOTE ---
Consultation Report: Called to assist with IV placement. Pt with history of difficult start and multiple failed attempts. US used to place 20ga IV at L FA attempt x1. Easily flushes with cap, secured. Patient tolerated the procedure without complaint.
[2021-12-02] MEDS ORDERED: lidocaine 1% 20 ML MDV ONE (09:24)
[2021-12-02] MEDS ORDERED: MIDAZOLAM 2 MG/2 ML VIAL ONE (09:39)
[2021-12-02] MEDS ORDERED: fentaNYL 100 MCG/2 ML VIAL ONE (09:39)
[2021-12-02] MEDS ORDERED: lidocaine 1% 20 ML MDV SUBQ ONE (11:01)
[2021-12-02] MEDS ORDERED: MORPHINE 2 MG/ML CARPUJECT ONE (11:21)
--- NOTE | 2021-12-02 12:57 | CT Report ---
PROCEDURE: LIVER BX PERC Sedation analgesia for 45 minutes. INDICATIONS: LIVER METS TECHNIQUE: The indications, alternatives, benefits, risks, and possible complications of the procedure were comm unicated to the patient. Informed written consent from the patient was obtained and placed in the art. Continuous EKG and hemodynamic monitoring was started by trained personnel. For radiation dose reduction, the following was used: automated exposure control, adjustment of mA and/or kV according to patient size. The patient was brought to the CT suite and hot tamale worker spiral CT imaging was performed with localization g rid. The appropriate site for percutaneous access to the biopsy target was marked, was prepped and d raped sterilely, and was infused with local anaesthesia. Under CT guidance, a core biopsy trocar and needle set was advanced to the biopsy target, and specimens were obtained. The trocar and needle we re then removed, and the patient was sent for post-procedure monitoring. COMPARISON: CT abdomen/pelvis 11/05/2021 FINDINGS: Biopsy site: Lateral left hepatic lobe. Needle: 18 gauge biopsy needle with introducer trocar. Number of passes: 5 Medications: 1% lidocaine for local anaesthesia. IV Fentanyl and Versed for conscious sedation for 45 minutes (see nursing record). Complications: None. IMPRESSION: Successful CT-guided biopsy of lateral left liver mass. Reviewed by: Mic Gentile MD on 12/02/2021 12:56 PM PDT Approved by: Mic Gentile MD on 12/02/2021 12:56 PM PDT Station ID: [id number]
[2021-12-02 13:50] LABS: HGB - HEMOGLOBIN 10.1 g/dL (12.0-16.0)
[2021-12-02 14:31] VITALS: BP 105/53
== END 2021-12-02 08:24 | disposition home or self-care (01) ==
LOC: DI 08:23
PROVIDERS: ATTEND Internal Medicine Hematology & Oncology
DX: C50.912 Malignant neoplasm of unspecified site of left female breast (principal); C78.7 Secondary malignant neoplasm of liver and intrahepatic bile duct; C79.51 Secondary malignant neoplasm of bone; Z17.0 Estrogen receptor positive status [ER+]
CPT/HCPCS: 36415; 47000; 85014; 85018; J7120

== ENCOUNTER 2021-12-23 17:51 | Inpatient (IN) | payer MEDICARE, MEDICAID ==
--- OUTSIDE RECORDS SUMMARY | 2021-12-23 17:57 | EXTERNAL MEDICAL SUMMARY RPT | Continuity of Care Document ---
:Unknown Demographics Phone Unavailable Preferred Language Czech Marital Status Never Mormon Affiliation Unknown Race Unknown Ethnic Group Unknown Author Organization [facility] Address [address] [phone] Phone Allergies No information. Encounters No information. Functional Status No information. Immunizations No information. Medications No information. Problems No information. Procedures No information. Results/Labs test date author facility value unit interpret ation Result panel 1 (unknown) (no (unknown) (unknown) (no value) (units (unk nown) date) unknown) (unknown) (no (unknown) (unknown) [address] [place] [address] (units (unknown) date) unknown) (unknown) (no (unknown) (unknown) [place], [place] (units ( unknown) date) [id number] unknown) (unknown) (no (unknown) (unknown) [facility] (units (unknown) date) unknown) (unknown) (no [...] (unknown) (unknown) COMPARISON: (units (un known) date) [facility], unknown) MR, MR LUMBAR SPINE WO CON, 11/03/2019, 10:50. (unknown) (no (unknown) (unknown) Dictated by: (units (u nknown) date) Tracie Jama M.D. unknown) on 10/14/2021 at 17:26 (unknown) (no (unknown) (unknown) Discs: Multilevel (units (unknown) date) [id number] unknown) disc desiccation is present moderate to [...] date) bulge with mild unknown) spinal stenosis. [id number] bilateral (unknown) (no (unknown) (unknown) L2-L3: Mild disc (units (unknown) date) bulge with mild unknown) spinal stenosis. [id number]-[id number]-[id number] bilateral (unknown) (no (unknown) (unknown) L3-L4: Mild disc (units (unknown) date) bulge with unknown) nzwl-cl-ujorirtr spinal stenosis. Mild bilateral (unknown) (no (unknown) [...] date) enhancement. unknown) (unknown) (no (unknown) (unknown) [id number] (units (unkno wn) date) unknown) (unknown) (no (unknown) (unknown) Accession Number: (units (unknown) date) [id number] unknown) (unknown) (no (unknown) (unknown) Age/Sex: 66 / F (units (unknown) date) Date of Service: unknown) (unknown) (no (unknown) (unknown) : 1955 (units (unknown) date) Acct:[id number] unknown) (unknown) (no (unknown) (unknown) L5 on [...]
[2021-12-23] MEDS ORDERED: SODIUM CHLORIDE 0.9% IV STA (18:12)
[2021-12-23 18:55] LABS: BASOPHILS % (AUTO) 0.8 %; HCT - HEMATOCRIT 32.5 % (37.0-47.0); HGB - HEMOGLOBIN 10.5 g/dL (12.0-16.0); MEAN CORPUSCULAR HEMOGLOBIN 28.8 pg (27.0-31.0); MEAN CORPUSCULAR HGB CONC 32.3 g/dL (32.0-36.0); MEAN CORPUSCULAR VOLUME 89.3 fL (81.0-99.0); MEAN PLATELET VOLUME 10.4 fL (7.9-10.8); MONOCYTES % (AUTO) 32.5 %; NEUTROPHILS % (AUTO) 11.7 %; PLT - PLATELET COUNT 176 10^3/uL (130-450); RED BLOOD COUNT 3.64 10^6/uL (4.20-5.40); RED CELL DISTRIBUTION WIDTH 15.2 % (12.0-15.0)
[2021-12-23] MEDS ORDERED: VANCOMYCIN INJ 1.5 GM in SODIUM CHLORIDE 0.9% 500 ML IV STA (18:57)
[2021-12-23] MEDS ORDERED: CEFEPIME 2 GM in SODIUM CHLORIDE 0.9% MINIBAG 100 ML IV STA (18:57)
--- NOTE | 2021-12-23 18:57 | XRAY Report ---
PROCEDURE: Chest 1 View X-Ray INDICATIONS: chest pain TECHNIQUE: One view of the chest was acquired. COMPARISON: 09/19/2019 FINDINGS: Surgical changes and devices: Multiple surgical clips project over the left axilla. Lungs and pleura: No pleural effusions or pneumothorax. Redemonstration of minimal opacities of the left mid and lower lung zones without focal consolidation. Mediastinum: Mediastinal contours appear normal. Heart size is normal. Bones and chest wall: No suspicious bony lesions. Overlying soft tissues appear unremarkable. IMPRESSION: Stable examination of the chest. No acute cardiopulmonary abnormalities. No focal consolidation seen. Reviewed by: Walter Aguillon MD on 12/23/2021 6:56 PM PDT Approved by: Walter Aguillon MD on 12/23/2021 6:56 PM PDT Station ID: [id number]
--- NOTE | 2021-12-23 18:59 | ED Physician Documentation ---
History of Present Illness - Stated complaint Stated Complaint: FEVER/NAUSEA - Chief complaint Chief Complaint: General - Additonal information Additional information: 66-year-old female presents emergency department for evaluation of fevers, chills vomiting and diarrhea. She states that for the last 5 days she has had uncontrolled vomiting and diarrhea. She has been using Compazine and Zofran without relief of symptoms. She has been taking [place] Paremyd for the diarrhea but it was not effective so her oncologist ordered Lomotil which she has not yet filled. T-max of 101.3. Generalized body aches and chills. No dysuria. She denies bloody output. Patient was seen in the MAC clinic yesterday and had noted hypotension with blood pressures of 71/46. No tachycardia Patient is undergoing chemotherapy for breast cancer with mets to the liver. She underwent her first cycle of chemotherapy on 15 December. She is followed by our MAC clinic and Dr. Harika Banda. She is scheduled to have a port placed on 01 January at [facility]. Review of Systems Constitutional: reports: Fever, Chills, Myalgias, Fatigue Eyes: reports: Reviewed and negative Throat: reports: Reviewed and negative Cardiac: reports: Reviewed and negative Respiratory: reports: Reviewed and negative GI: reports: Abdominal Pain, Nausea, Vomiting, Diarrhea. denies: Hematemesis, Bloody / black stool : reports: Reviewed and negative Skin: reports: Reviewed and negative Musculoskeletal: reports: Reviewed and negative Neurologic: reports: Generalized weakness. denies: Focal weakness, Numbness, Syncope, Seizure Psychiatric: reports: Reviewed and negative PD PAST MEDICAL HISTORY - Past Medical History Cardiovascular: Hypertension, High cholesterol, Peripheral Vascular Disease, Murmur Respiratory: Sleep apnea, CPAP use Neuro: Headaches, Peripheral neuropathy, Fainting Endocrine/Autoimmune: Type 2 diabetes GI: GERD, Cholelithiasis BARREL MARKER: Miscarriage(s), Breast cancer : None HEENT: Chronic vision loss, Chronic sinusitis Psych: Anxiety Musculoskeletal: Osteoarthritis Derm: None, Other - Past Surgical History Past Surgical History: Yes Ortho: Spine surgery /BARREL MARKER: Tubal ligation, Other - Present Medications Home Medications: Ambulatory Orders Medication Instructions Recorded Confirmed Sertraline HCl 150 mg PO DAILY 06/27/18 12/10/21 metFORMIN [Glucophage] 1,000 mg PO BIDWM 06/27/18 12/10/21 Cholecalciferol (Vitamin D3) 2,000 unit PO DAILY 05/10/19 12/10/21 [Vitamin D3] Metoprolol Tartrate 50 mg PO DAILY 05/10/19 12/10/21 Multivitamin [Multivitamins] 1 tab PO DAILY 05/10/19 12/10/21 Vitamin B Complex/Folic Acid 1 tab PO DAILY 05/10/19 12/10/21 [Vitamin B Complex Tablet] Celecoxib 200 mg PO DAILY 10/16/19 12/10/21 Levothyroxine Sodium [Levoxyl] 25 mcg PO DAILY 04/16/21 12/10/21 Rosuvastatin Calcium [Crestor] 20 mg PO DAILY 04/16/21 12/10/21 Irbesartan [Avapro] 150 mg PO DAILY 10/14/21 12/10/21 Dulaglutide [Trulicity] 0.75 mg SQ DAILY 11/10/21 12/10/21 HYDROcod/ACETAM 5/325 [[place] 5/325] 1 tab ORAL PRN PRN 12/02/21 12/10/21 Diphenoxylate/Atropine [Lomotil] 1 tab PO QID 12/22/21 12/22/21 Prochlorperazine Maleate 1 tab PO Q6HR PRN 12/22/21 12/22/21 [Compazine] - Allergies Allergies/Adverse Reactions: Allergies Allergy/AdvReac Type Severity Reaction Status Date / Time adhesive Allergy Unknown Verified 12/23/21 18:06 anastrozole Allergy Unknown Verified 12/23/21 18:06 hydroxyzine Allergy Itching Verified 12/23/21 18:06 lorazepam Allergy Emesis Verified 12/23/21 18:06 meclizine Allergy Emesis Verified 12/23/21 18:06 silver Allergy Unknown Verified 12/23/21 18:06 [From Tegaderm AG Mesh] codeine AdvReac Nausea Verified 12/23/21 18:06 gabapentin AdvReac Dizziness Verified 12/23/21 18:06 - Social History Does the pt smoke?: No Smoking Status: Never smoker Does the pt drink ETOH?: No Does the pt have substance abuse?: No - Immunizations Immunizations are current?: Yes - POLST Patient has POLST: No POLST Status: Full Code PD ED PE EXPANDED - General General: Alert, No acute distress, Other (Obese) - Cardiac Cardiac: Regular Rate, Radial strong equal, Pedal strong equal, Cap refill < 2 sec. No: Murmur Present - Respiratory Respiratory: Clear to ausultation suad. No: Distress, Labored - Abdomen Abdomen: Normal Bowel sounds, Tender to palpation (Generally tender abdomen without peritoneal signs. Most of the tenderness elicited in the upper abdomen) - Derm Derm: Normal color, Warm and dry. No: Rash - Extremities Extremities: Normal. No: Deformity, Tenderness - Neuro Neuro: Alert and Oriented X 3, CNII-XII intact - GCS Eye Opening: Spontaneous Motor: Obeys Commands Verbal: Oriented Total: 15 Results - Vitals Vitals: Vital Signs - 24 hr 12/23/21 12/23/21 12/23/21 18:02 19:00 19:08 Temperature 37.2 C Heart Rate 86 78 80 Respiratory 14 16 14 Rate Blood Pressure 97/58 L 116/58 L 113/55 L O2 Saturation 94 99 100 12/23/21 20:55 Temperature Heart Rate 78 Respiratory 20 Rate Blood Pressure 113/52 L O2 Saturation 98 Oxygen O2 Source Room air - Labs Labs: Laboratory Tests 12/23/21 12/23/21 12/23/21 18:41 18:41 18:41 WBC 1.2 L* RBC 3.64 L Hgb 10.5 L Hct 32.5 L MCV 89.3 MCH 28.8 MCHC 32.3 RDW 15.2 H Plt Count 176 MPV 10.4 Neut # (Auto) Not Reportable Lymph # (Auto) Not Reportable [place] # (Auto) Not Reportable Eos # (Auto) Not Reportable Baso # (Auto) Not Reportable Absolute Nucleated RBC Not Reportable Total Counted 100 Band Neuts % (Manual) 1 Abnorm Lymph % (Manual) 0 Nucleated RBC % Not Reportable Neutrophils # (Manual) 0.2 L* Lymphocytes # (Manual) 0.6 L Monocytes # (Manual) 0.3 Eosinophils # (Manual) 0.0 Basophils # (Manual) 0.0 Differential Comment MANUAL DIFFERENTIAL WBC Morphology NORMAL APPEARANCE Platelet Estimate NORMAL (130-450,000) Platelet Morphology 1+ GIANT PLATELETS RBC Morph Micro Appear 1+ POLYCHROMASIA Sodium 137 Potassium 3.6 Chloride 104 Carbon Dioxide 25 Anion Gap 8.0 BUN 23 H Creatinine 1.0 Estimated GFR (MDRD) 55 L Glucose 182 H Lactic Acid 0.8 Calcium 8.6 Total Bilirubin 1.7 H AST 22 ALT 18 Alkaline Phosphatase 158 H Total Protein 7.6 Albumin 3.1 L Globulin 4.5 H Albumin/Globulin Ratio 0.7 L Urine Color Urine Clarity Urine pH Ur Specific [place] Urine Protein Urine Glucose (UA) Urine Ketones Urine Occult Blood Urine Nitrite Urine Bilirubin Urine Urobilinogen Ur Leukocyte Esterase Urine RBC Urine WBC Ur Squamous Epith Cells Urine Bacteria Urine Casts Urine Culture Comments 12/23/21 19:40 WBC RBC Hgb Hct MCV MCH MCHC RDW Plt Count MPV Neut # (Auto) Lymph # (Auto) [place] # (Auto) Eos # (Auto) Baso # (Auto) Absolute Nucleated RBC Total Counted Band Neuts % (Manual) Abnorm Lymph % (Manual) Nucleated RBC % Neutrophils # (Manual) Lymphocytes # (Manual) Monocytes # (Manual) Eosinophils # (Manual) Basophils # (Manual) Differential Comment WBC Morphology Platelet Estimate Platelet Morphology RBC Morph Micro Appear Sodium Potassium Chloride Carbon Dioxide Anion Gap BUN Creatinine Estimated GFR (MDRD) Glucose Lactic Acid Calcium Total Bilirubin AST ALT Alkaline Phosphatase Total Protein Albumin Globulin Albumin/Globulin Ratio Urine Color DARK YELLOW Urine Clarity HAZY Urine pH 6.0 Ur Specific [place] 1.025 Urine Protein TRACE Urine Glucose (UA) NEGATIVE Urine Ketones NEGATIVE Urine Occult Blood NEGATIVE Urine Nitrite POSITIVE H Urine Bilirubin NEGATIVE Urine Urobilinogen 0.2 (NORMAL) Ur Leukocyte Esterase TRACE H Urine RBC 0-5 Urine WBC 11-25 H Ur Squamous Epith Cells RARE Squamous Urine Bacteria Many H Urine Casts 11-25 Granular Casts Urine Culture Comments INDICATED - Rads (name of study) cxr Radiology: Final report received (Stable exam of the chest. No acute cardiopulmonary abnormalities. No focal consolidation seen) Ct abd Radiology: Final report received (CT abdomen pelvis without acute abnormalities to explain symptoms. Multiple hepatic hypodensities compatible with previously described hepatic metastases. Stable appearance of osseous metastasis involving the right obturator ring. Cholelithiasis without evidence of cystitis) PD MEDICAL DECISION MAKING - ED course ED course: 66-year-old female presents emergency department for evaluation of fevers that began today with a T-max up to 101.3. She is also been endorsing vomiting and diarrhea for the last 4 days. This is in the setting of recent chemotherapy for metastatic breast cancer with mets to the liver. She underwent her first cycle of chemotherapy on 15 December. She presents with generalized and nonfocal and nonperitoneal abdominal pain. She did have a soft blood pressure but there was no true hypotension.She is noted to be neutropenic. Urine is consistent with infection. A CT of the abdomen showed no acute abnormalities. She presented to the emergency department and we initiated treatment under sepsis protocol. Patient was administered 20 mils per kilo of crystalloid. She was also given broad-spectrum antibiotics with 2 g of cefepime and 1.5 g of vancomycin. Chest x-ray showed no acute focal abnormalities. Blood cultures are pending. Patient will need to be admitted to the hospital for further evaluation and treatment of neutropenic fever. We do find that she has a urinary tract infection. Though she is septic she does not present in septic shock 2044: I have spoken with Dr. Davenport the [facility] hospitalist at 2044 and she agrees to accept and admit the patient for neutropenic fever and sepsis - Critical Care Time(min): 20 Time Includes: Direct patient care, Reassess patient Data interpretation: Labs Procedures included in critical care time: Peripheral IV - Sepsis Event Sepsis Onset Date: 12/23/21 Sepsis Onset Time: 18:00 Current Stage of Sepsis: Sepsis Initial Hypotension: Not hypotensive Possible source of Sepsis: Genitourinary Mental/Cognitive Status: Alert/Oriented X3, Normal for patient Reason for not giving 30ml/kg crystalloid fluids: Not in septic shock Capillary refill: Less than 2 seconds Peripheral Pulse Strength: 2+ Slightly Diminished Peripheral Pulse Location: Pedal Bedside ultrasound performed: No Sepsis Comment: Initiated on broad-spectrum antibiotics with cefepime and vancomycin. Urine is consistent with infection initially. Chest x-ray without acute focal opacities. Blood cultures x2 are pending. CT of the abdomen showed no acute intra- abdominal process Departure - Departure Disposition: 66 [facility] DC/Xfer Clinical Impression: Neutropenic fever, Metastatic breast cancer, Dehydration Sepsis Qualifiers: Sepsis type: sepsis due to unspecified organism Sepsis acute organ dysfunction status: without acute organ dysfunction Qualified Code(s): A41.9 - Sepsis, unspecified organism Acute cystitis Qualifiers: Hematuria presence: without hematuria Qualified Code(s): N30.00 - Acute cystitis without hematuria
[2021-12-23 19:00] LABS: WHITE BLOOD COUNT 1.2 x10^3/uL (4.8-10.8)
[2021-12-23 19:01] LABS: ABNORMAL LYMPHS % (MANUAL) 0 %
[2021-12-23 19:04] LABS: ALBUMIN 3.1 g/dL (3.2-5.5); ALBUMIN/GLOBULIN RATIO 0.7 (1.0-2.2); BILIRUBIN,TOTAL 1.7 mg/dL (0.2-1.0); CALCIUM 8.6 mg/dL (8.5-10.3); POTASSIUM 3.6 mmol/L (3.5-5.0); TOTAL PROTEIN 7.6 g/dL (6.7-8.2)
[2021-12-23 19:29] LABS: BAND NEUTROPHILS % (MANUAL) 1 %; BASOPHILS % (MANUAL) 3 %; LYMPHOCYTES # (MANUAL) 0.6 10^3/uL (1.5-3.5); LYMPHOCYTES % (MANUAL) 54 %; MONOCYTES # (MANUAL) 0.3 10^3/uL (0.0-1.0); PLATELET ESTIMATE, MANUAL NORMAL (130-450,000) (NORMAL); PLATELET MORPHOLOGY 1+ GIANT PLATELETS (NORMAL); WBC MORPHOLOGY (MULTIPLE) NORMAL APPEARANCE (NORMAL)
[2021-12-23 19:31] LABS: DIFFERENTIAL COMMENT MANUAL DIFFERENTIAL; NEUTROPHILS # (MANUAL) 0.2 10^3/uL (1.5-6.6)
[2021-12-23 19:51] LABS: BILIRUBIN,URINE NEGATIVE (NEGATIVE); CLARITY,URINE HAZY (CLEAR); GLUCOSE, URINE (UA) NEGATIVE (NEGATIVE); KETONES,URINE (UA) NEGATIVE (NEGATIVE); LEUKOCYTE ESTERASE, URINE TRACE (NEGATIVE); NITRITE,URINE POSITIVE (NEGATIVE); OCCULT BLOOD,URINE NEGATIVE (NEGATIVE); PROTEIN,URINE TRACE mg/dL (NEGATIVE); UROBILINOGEN,URINE 0.2 (NORMAL) E.U./dL (NORMAL)
[2021-12-23 19:58] LABS: BACTERIA,URINE Many /HPF (None Seen); RBC,URINE 0-5 /HPF (0-5); SQUAMOUS EPITHELIAL CELL,UR RARE Squamous (<= Few)
--- NOTE | 2021-12-23 20:02 | CT Report ---
PROCEDURE: Abdomen/Pelvis WO INDICATIONS: Neutropenic fever, vomiting and diarrhea TECHNIQUE: Noncontrast 5 mm thick sections acquired from the diaphragms to the symphysis. 5 mm coronal and sagi ttal reformats were then performed. For radiation dose reduction, the following was used: automated exposure control, adjustment of mA and/or kV according to patient size. COMPARISON: 11/05/2021 FINDINGS: Image quality: Excellent. ABDOMEN: Lung bases: Lung bases are clear. Heart size is normal. Solid organs: Liver and spleen are normal in size. Multiple scattered hepatic hypodensities compatib le with metastatic disease. These appear stable to slightly progressed. Gallbladder contains multipl e layering gallstones without evidence for wall thickening or pericholecystic inflammatory stranding. Pancreas is normal in contours. No adrenal nodules. Kidneys are normal in size, without hydroneph rosis or nephrolithiasis. Stable anterior left renal cortical hypodensity likely representing a cyst. Bilateral ureters are normal in course and caliber. No ureteral stone. Peritoneum and bowel: Unenhanced bowel loops demonstrate normal wall thickness and caliber. No acute inflammatory changes. No free fluid or air. Normal-appearing appendix. Nodes and vessels: Prominent portacaval lymph nodes are again noted. Retroperitoneal lymph nodes are unremarkable. Aorta and inferior vena cava are normal in caliber. Scattered atherosclerotic calcific ations of the abdominal aorta and iliac vessels. Miscellaneous: Fat-containing umbilical hernia without acute inflammation. PELVIS: Genitourinary: Bladder wall thickness is unremarkable for degree of bladder distention. Miscellaneous: No inguinal hernias or adenopathy. Bones: Status post right total hip arthroplasty. Hardware causes significant edema hardening artifact which limits visualization of the lower pelvis. Stable appearance of mixed lytic/sclerotic lesion of the right obturator ring with associated fracture. No acute vertebral body compression fractures. Mu ltilevel spondylosis. IMPRESSION: 1. CT abdomen and pelvis without acute abnormalities to explain patient's symptoms. 2. Multiple hepatic hypodensities compatible with previously described hepatic metastases. These appe ar stable to slightly progressed. 3. Stable appearance of osseous metastases involving the right obturator ring. 4. Cholelithiasis without CT evidence for acute cholecystitis. Other chronic findings as above. Reviewed by: Walter Aguillon MD on 12/23/2021 8:01 PM PDT Approved by: Walter Aguillon MD on 12/23/2021 8:01 PM PDT Station ID: [id number]
[2021-12-23] MEDS ORDERED: ONDANSETRON 4 MG/2 ML VIAL IVP STA (20:06)
[2021-12-23] MEDS ORDERED: VANCOMYCIN 1 GM VIAL ONE (20:26)
--- NOTE | 2021-12-23 21:29 | HISTORY & PHYSICAL EXAMINATION ---
Chief Complaint - Chief Complaint Chief Complaint: fever History of Present Illness - History Obtained From History obtained from: patient - History of Present Illness HPI Comment/Other: Ms Lantigua is a 66 yo F recently diagnosed with metastatic breast cancer, She had her first chemo on 12/15/21. For the past 4-5 days she has had severe nausea, vomiting, diarrhea. Pt reports explosive diarrhea and vomiting 5-6 times daily. Seen by oncology yesterday and prescribed on phenergan, zofran, imodium. She has a diffuse aching/cramping in her abdomen. Metallic taste in her mouth. No appetite. Fever today 101.3. Denies hematemesis, hematuria or hematochezia. Reports decreased urinary frequency, denies dysuria. Feels dizzy and lightheaded at times. Denies cp, sob, cough, sputum production, leg swelling. History - Past Medical History Cardiovascular: reports: Hypertension, High cholesterol, Peripheral Vascular Disease, Murmur Respiratory: reports: Sleep apnea, CPAP use Neuro: reports: Headaches, Peripheral neuropathy, Fainting Endocrine/Autoimmune: reports: Type 2 diabetes GI: reports: GERD, Cholelithiasis [employer] SERVICE MANAGER: reports: Miscarriage(s), Breast cancer : reports: None HEENT: reports: Chronic vision loss, Chronic sinusitis Psych: reports: Anxiety Musculoskeletal: reports: Osteoarthritis Derm: reports: None, Other MRSA Hx?: No - Past Surgical History Ortho: reports: Spine surgery /K[employer] SERVICE MANAGER: reports: Tubal ligation, Other - Family & Social History Family History: Mother: , CAD, Obesity, Father: , CAD, Sister: , CAD, Diabetes, Type 2, Obesity, Brother: , CAD, Diabetes, Type 2, Obesity Family History Comment/Other: Patient is one of 7 siblings, 6 are still living, parents are Social History Notes: The patient has lived in [place] for the past 24 years. 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 She lives alone, has a son and a daughter who have their own lives making minimum wage, so cannot help their mother out much. She has been for the past 16 years, never re-. Since her breast cancer treatments, her sister Saturnino has been supportive by staying with her, but lives in [place], so is not a reliable, long-term support. She denies the use of tobacco, alcohol, or illicit drugs. She wishes to be a full code. - Substance History Use: Uses substance without health or social issues: NONE - POLST Patient has POLST: No POLST Status: Full Code Meds/Allgy - Home Medications Home Medications: Ambulatory Orders Medication Instructions Recorded Confirmed Sertraline HCl 150 mg PO DAILY 06/27/18 12/10/21 metFORMIN [Glucophage] 1,000 mg PO BIDWM 06/27/18 12/10/21 Cholecalciferol (Vitamin D3) 2,000 unit PO DAILY 05/10/19 12/10/21 [Vitamin D3] Metoprolol Tartrate 50 mg PO DAILY 05/10/19 12/10/21 Multivitamin [Multivitamins] 1 tab PO DAILY 05/10/19 12/10/21 Vitamin B Complex/Folic Acid 1 tab PO DAILY 05/10/19 12/10/21 [Vitamin B Complex Tablet] Celecoxib 200 mg PO DAILY 10/16/19 12/10/21 Levothyroxine Sodium [Levoxyl] 25 mcg PO DAILY 04/16/21 12/10/21 Rosuvastatin Calcium [Crestor] 20 mg PO DAILY 04/16/21 12/10/21 Irbesartan [Avapro] 150 mg PO DAILY 10/14/21 12/10/21 Dulaglutide [Trulicity] 0.75 mg SQ DAILY 11/10/21 12/10/21 HYDROcod/ACETAM 5/325 [[place] 5/325] 1 tab ORAL PRN PRN 12/02/21 12/10/21 Diphenoxylate/Atropine [Lomotil] 1 tab PO QID 12/22/21 12/22/21 Prochlorperazine Maleate 1 tab PO Q6HR PRN 12/22/21 12/22/21 [Compazine] - Allergies Allergies/Adverse Reactions: Allergies Allergy/AdvReac Type Severity Reaction Status Date / Time adhesive Allergy Unknown Verified 12/23/21 18:06 anastrozole Allergy Unknown Verified 12/23/21 18:06 hydroxyzine Allergy Itching Verified 12/23/21 18:06 lorazepam Allergy Emesis Verified 12/23/21 18:06 meclizine Allergy Emesis Verified 12/23/21 18:06 silver Allergy Unknown Verified 12/23/21 18:06 [From EyeNetraadeNewmerix AG Mesh] codeine AdvReac Nausea Verified 12/23/21 18:06 gabapentin AdvReac Dizziness Verified 12/23/21 18:06 Review of Systems - Constitutional Constitutional: reports: Fatigue, Fever, Malaise, Weakness, Poor appetite - Ears, Nose & Throat Ears, Nose & Throat: denies: Nasal discharge, Nasal congestion, Sore throat - Cardiovascular Cariovascular: reports: Lightheadedness. denies: Palpitations, Chest pain, Edema, Syncope - Respiratory Respiratory: denies: Cough, Sputum production, SOB at rest - Gastrointestinal Gastrointestinal: reports: Abdominal pain, Diarrhea, Nausea, Vomiting, Poor appetite. denies: Rectal bleeding, Jesus blood emesis, Coffee grounds emesis - Genitourinary Genitourinary: reports: Frequency. denies: Dysuria, Hematuria - Integumentary Integumentary: denies: Rash, Pruritis - Neurological Neurological: reports: General weakness. denies: Focal weakness - All Other Systems All Other Systems: reports: Reviewed and negative Prior Level of Functionality: independent at home Exam - Vital Signs Reviewed Vital Signs: Yes Vital Signs: Vital Signs x48h Temp Pulse Resp BP Pulse Ox 12/23/21 20:55 78 20 113/52 L 98 12/23/21 19:08 80 14 113/55 L 100 12/23/21 19:00 78 16 116/58 L 99 12/23/21 18:02 37.2 C 86 14 97/58 L 94 - Physical Exam General Appearance: positive: No acute distress, Other (appears fatigued) Eyes Bilateral: positive: Normal inspection ENT: positive: ENT inspection nml Respiratory: positive: No respiratory distress Skin: positive: Color nml, No rash Neurologic/Psychiatric: positive: Oriented x3 Sepsis Event Note (H) - Evaluation Current Stage of Sepsis: Sepsis Possible source of Sepsis: positive: Genitourinary - Sepsis Criteria Sepsis Criteria: Recorded Temperature greater than 38.3C or Less than 36C (at home prior to admission ), WBC count greater than 12,000 or less than 4000 Conclusion/Plan - Lab Results Fish Bones: 12/23/21 18:41 12/23/21 18:41 - Diagnostic Imaging Results Diagnostic Imaging Results: positive: Final report reviewed - Other Other Results/Comments: Assessment and Plan: Sepsis secondary to UTI Neutropenic fever -Continue broad spectrum antibiotics -IV fluids, received sepsis bolus -Lactic 0.8 -Follow up blood/urine cultures Neutropenia secondary to chemotherapy N/V/D secondary to chemotherapy Metastatic breast cancer -S/p first chemo tx 12/15/21 -Supportive care, antiemetics -Will r/o C diff given fever/pain -Ct abd unremarkable DM II -SSI HTN -Hold home meds, borderline hypotension at admission Peripheral neuropathy -Continue Lyrica home med DVT ppx: Heparin sc Full code Clinical telemedicine services delivered using interactive video audio telecommunications while the patient and the rendering provider were not in the same physical location. Core Measures - DVT/VTE - Prophylaxis VTE/DVT Prophylaxis med ordered at admit?: Yes
[2021-12-23] MEDS ORDERED: PROCHLORPERAZINE 10 MG/2 ML VIAL IVP PRN (21:43)
[2021-12-23] MEDS ORDERED: HYDROmorphone 0.5 MG/0.5 ML SYRINGE IVP PRN (21:43)
[2021-12-23] MEDS ORDERED: SODIUM CHLORIDE FLUSH 0.9% 10 ML SYRINGE IVP PRN (21:43)
[2021-12-23] MEDS ORDERED: ONDANSETRON 4 MG/2 ML VIAL IVP PRN (21:43)
[2021-12-23] MEDS: PREGABALIN 25 MG CAPSULE PO SCH (22:31)
[2021-12-23] MEDS: PREGABALIN 100 MG CAPSULE PO SCH (22:31)
[2021-12-23] MEDS: SODIUM CHLORIDE FLUSH 0.9% 10 ML SYRINGE IVP SCH (23:30)
[2021-12-23] MEDS: SODIUM CHLORIDE 0.9% 1,000 ML IV SCH (23:30)
[2021-12-24] MEDS: HYDROcod/ACETAM 5/325 MG TABLET PO PRN (00:03)
[2021-12-24] MEDS: PREGABALIN 25 MG CAPSULE PO SCH ×3 (05:52→14:16)
[2021-12-24] MEDS: PREGABALIN 100 MG CAPSULE PO SCH ×3 (05:52→21:48)
[2021-12-24] MEDS ORDERED: VANCOMYCIN INJ 1.5 GM in SODIUM CHLORIDE 0.9% 500 ML IV SCH (08:00)
[2021-12-24] MEDS: HEPARIN 5,000 UNIT/ML VIAL SUBQ SCH ×2 (08:25→21:47)
[2021-12-24] MEDS: LEVOTHYROXINE 25 MCG TABLET PO SCH (08:25)
[2021-12-24] MEDS: SERTRALINE 50 MG TABLET PO SCH (08:26)
[2021-12-24] MEDS: SODIUM CHLORIDE FLUSH 0.9% 10 ML SYRINGE IVP SCH ×3 (08:38→23:33)
[2021-12-24] MEDS: CEFEPIME 2 GM in SODIUM CHLORIDE 0.9% MINIBAG 100 ML IV SCH ×3 (08:38→23:33)
--- NOTE | 2021-12-24 08:42 | PROVIDER PROGRESS NOTE ---
Subjective - Prog Note Date Prog Note Date: 12/24/21 Prog Note Time: 08:40 - Subjective Subjective: Nausea is controlled. She still has severe anorexia and is forcing herself to eat. She is developing mouth sores. Tells me that this is "the second time of head cancer so I know what this is like". She denies chest pain, abdominal pain, shortness of breath, cough. Main complaint is nausea, fatigue, and the mouth sores. Current Medications - Current Medications Current Medications: Active Medications Acetaminophen (Acetaminophen 325 Mg Tablet) 650 mg PO Q4HR PRN PRN Reason: Pain 1 to 4, or Fever Hydrocodone Bitart/Acetaminophen (Hydrocod/Acetam 5/325 Mg Tablet) 1 tab PO Q4HR PRN PRN Reason: Pain 5 to 7 Last Admin: 12/24/21 00:03 Dose: 1 tab Heparin Sodium (Porcine) (Heparin 5,000 Unit/Ml Vial) 5,000 unit SUBQ BID [facility] Last Admin: 12/24/21 08:25 Dose: 5,000 unit Hydromorphone HCl (Hydromorphone 0.5 Mg/0.5 Ml Syringe) 0.5 mg IVP Q2H PRN PRN Reason: Pain 8 to 10 Sodium Chloride (Normal Saline 0.9%) 1,000 mls @ 100 mls/hr IV .Q10H [facility] Last Admin: 12/23/21 23:30 Dose: 100 mls/hr Cefepime HCl 2 gm/ Sodium (Chloride) 100 mls @ 200 mls/hr IV Q8H [facility] Last Admin: 12/24/21 08:38 Dose: 200 mls/hr Vancomycin HCl 1.5 gm/ Sodium (Chloride) 500 mls @ 333 mls/hr IV BID@0800,2000 [facility] Insulin Glargine (Insulin Glargine 300 Unit/3 Ml Pen) 5 unit SUBQ QDBREAKFAST [facility] Insulin Human Lispro (Insulin Lispro 300 Unit/3 Ml Pen) 1 - 9 unit SUBQ 0800,1200,1700,2100 [facility]; Protocol Levothyroxine Sodium (Levothyroxine 25 Mcg Tablet) 25 mcg PO DAILY [facility] Last Admin: 12/24/21 08:25 Dose: 25 mcg Ondansetron HCl (Ondansetron 4 Mg/2 Ml Vial) 4 mg IVP Q6HR PRN PRN Reason: Nausea / Vomiting Pregabalin (Pregabalin 100 Mg Capsule) 100 mg PO TID [facility] Last Admin: 12/24/21 05:52 Dose: 100 mg Pregabalin (Pregabalin 25 Mg Capsule) 50 mg PO TID [facility] Last Admin: 12/24/21 05:52 Dose: 50 mg Prochlorperazine Edisylate (Prochlorperazine 10 Mg/2 Ml Vial) 10 mg IVP Q6HR PRN PRN Reason: Nausea / Vomiting Sertraline HCl (Sertraline 50 Mg Tablet) 150 mg PO DAILY [facility] Last Admin: 12/24/21 08:26 Dose: 150 mg Sodium Chloride (Sodium Chloride Flush 0.9% 10 Ml Syringe) 10 ml IVP PRN PRN PRN Reason: NEEDED PER PROVIDER ORDERS Sodium Chloride (Sodium Chloride Flush 0.9% 10 Ml Syringe) 10 ml IVP 0100,0900,1700 [facility] Last Admin: 12/24/21 08:38 Dose: 10 ml Vancomycin HCl (Vancomycin: Pharmacy To Dose) 1 each ONCE PRN PRN Reason: PER PHARMACY Sertraline HCl 150 mg PO DAILY 06/27/18 metFORMIN [Glucophage] 1,000 mg PO BIDWM 06/27/18 Cholecalciferol (Vitamin D3) [Vitamin D3] 2,000 unit PO DAILY 05/10/19 Metoprolol Tartrate 50 mg PO DAILY 05/10/19 Multivitamin [Multivitamins] 1 tab PO DAILY 05/10/19 Vitamin B Complex/Folic Acid [Vitamin B Complex Tablet] 1 tab PO DAILY 05/10/19 Celecoxib 200 mg PO DAILY 10/16/19 Levothyroxine Sodium [Levoxyl] 25 mcg PO DAILY 04/16/21 Rosuvastatin Calcium [Crestor] 20 mg PO DAILY 04/16/21 Irbesartan [Avapro] 150 mg PO DAILY 10/14/21 Dulaglutide [Trulicity] 0.75 mg SQ DAILY 11/10/21 HYDROcod/ACETAM 5/325 [[place] 5/325] 1 tab ORAL PRN PRN 12/02/21 Diphenoxylate/Atropine [Lomotil] 1 tab PO QID 12/22/21 Prochlorperazine Maleate [Compazine] 1 tab PO Q6HR PRN 12/22/21 Objective - Vital Signs/Intake & Output Reviewed Vital Signs: Yes Vital Signs: Vital Signs x48h Temp Pulse Resp BP Pulse Ox 12/24/21 08:00 37.3 C 72 18 116/57 L 91 L 12/24/21 05:00 36.9 C 73 16 113/51 L 93 Intake & Output: Intake & Output 12/21/21 12/22/21 12/23/21 12/24/21 23:59 23:59 23:59 23:59 Intake Total 3717.54 300 Output Total 650 1150 Balance 3067.54 -850 - Objective General Appearance: positive: No acute distress, Alert, Other (Morbidly obese female who looks older than stated age, well groomed, moving slowly, muted affect) Eyes Bilateral: positive: PERRL, EOMI ENT: positive: Oral lesions Neck: positive: No JVD. negative: Stiff neck Respiratory: positive: No respiratory distress. negative: Wheezes, Rales, Rhonchi Cardiovascular: positive: Regular rate & rhythm. negative: Gallop/S4, Friction rub Abdomen: positive: Non-tender, No organomegaly, Nml bowel sounds, No distention Skin: positive: Warm, Dry Extremities: positive: Full ROM, Nml appearance, No pedal edema Neurologic/Psychiatric: positive: Oriented x3, CN's nml (2-12), Motor nml - Lab Results Fish Bones: 12/23/21 18:41 12/23/21 18:41 Other Labs: Lab Results x24hrs 12/23/21 12/23/21 12/23/21 Range/Units 19:40 18:41 18:41 WBC (4.8-10.8) x10^3/uL RBC (4.20-5.40) 10^6/uL Hgb (12.0-16.0) g/dL Hct (37.0-47.0) % MCV (81.0-99.0) fL MCH (27.0-31.0) pg MCHC (32.0-36.0) g/dL RDW (12.0-15.0) % Plt Count (130-450) 10^3/uL MPV (7.9-10.8) fL Neut # (Auto) Lymph # (Auto) [place] # (Auto) Eos # (Auto) Baso # (Auto) Absolute Nucleated RBC Total Counted Band Neuts % (Manual) (0 - 10) % Abnorm Lymph % (Manual) % Nucleated RBC % Neutrophils # (Manual) (1.5-6.6) 10^3/uL Lymphocytes # (Manual) (1.5-3.5) 10^3/uL Monocytes # (Manual) (0.0-1.0) 10^3/uL Eosinophils # (Manual) (0-0.7) 10^3/uL Basophils # (Manual) (0-0.1) 10^3/uL Differential Comment WBC Morphology (NORMAL) Platelet Estimate (NORMAL) Platelet Morphology (NORMAL) RBC Morph Micro Appear (NORMAL) Sodium 137 (135-145) mmol/L Potassium 3.6 (3.5-5.0) mmol/L Chloride 104 (101-111) mmol/L Carbon Dioxide 25 (21-32) mmol/L Anion Gap 8.0 (6-13) BUN 23 H (6-20) mg/dL Creatinine 1.0 (0.4-1.0) mg/dL Estimated GFR (MDRD) 55 L (>89) Glucose 182 H (70-100) mg/dL Lactic Acid 0.8 (0.5-2.2) mmol/L Calcium 8.6 (8.5-10.3) mg/dL Total Bilirubin 1.7 H (0.2-1.0) mg/dL AST 22 (10-42) IU/L ALT 18 (10-60) IU/L Alkaline Phosphatase 158 H (42-121) IU/L Total Protein 7.6 (6.7-8.2) g/dL Albumin 3.1 L (3.2-5.5) g/dL Globulin 4.5 H (2.1-4.2) g/dL Albumin/Globulin Ratio 0.7 L (1.0-2.2) Urine Color DARK YELLOW Urine Clarity HAZY (CLEAR) Urine pH 6.0 (5.0-7.5) PH Ur Specific [place] 1.025 (1.002-1.030) Urine Protein TRACE (NEGATIVE) mg/dL Urine Glucose (UA) NEGATIVE (NEGATIVE) mg/dL Urine Ketones NEGATIVE (NEGATIVE) mg/dL Urine Occult Blood NEGATIVE (NEGATIVE) Urine Nitrite POSITIVE H (NEGATIVE) Urine Bilirubin NEGATIVE (NEGATIVE) Urine Urobilinogen 0.2 (NORMAL) (NORMAL) E.U./dL Ur Leukocyte Esterase TRACE H (NEGATIVE) Urine RBC 0-5 (0-5) /HPF Urine WBC 11-25 H (0-5) /HPF Ur Squamous Epith Cells RARE Squamous (<= Few) Urine Bacteria Many H (None Seen) /HPF Urine Casts 11-25 Granular Casts /LPF Urine Culture Comments INDICATED 12/23/21 Range/Units 18:41 WBC 1.2 L* (4.8-10.8) x10^3/uL RBC 3.64 L (4.20-5.40) 10^6/uL Hgb 10.5 L (12.0-16.0) g/dL Hct 32.5 L (37.0-47.0) % MCV 89.3 (81.0-99.0) fL MCH 28.8 (27.0-31.0) pg MCHC 32.3 (32.0-36.0) g/dL RDW 15.2 H (12.0-15.0) % Plt Count 176 (130-450) 10^3/uL MPV 10.4 (7.9-10.8) fL Neut # (Auto) Not Reportable Lymph # (Auto) Not Reportable [place] # (Auto) Not Reportable Eos # (Auto) Not Reportable Baso # (Auto) Not Reportable Absolute Nucleated RBC Not Reportable Total Counted 100 Band Neuts % (Manual) 1 (0 - 10) % Abnorm Lymph % (Manual) 0 % Nucleated RBC % Not Reportable Neutrophils # (Manual) 0.2 L* (1.5-6.6) 10^3/uL Lymphocytes # (Manual) 0.6 L (1.5-3.5) 10^3/uL Monocytes # (Manual) 0.3 (0.0-1.0) 10^3/uL Eosinophils # (Manual) 0.0 (0-0.7) 10^3/uL Basophils # (Manual) 0.0 (0-0.1) 10^3/uL Differential Comment MANUAL DIFFERENTIAL WBC Morphology NORMAL APPEARANCE (NORMAL) Platelet Estimate NORMAL (130-450,000) (NORMAL) Platelet Morphology 1+ GIANT PLATELETS (NORMAL) RBC Morph Micro Appear 1+ POLYCHROMASIA (NORMAL) Sodium (135-145) mmol/L Potassium (3.5-5.0) mmol/L Chloride (101-111) mmol/L Carbon Dioxide (21-32) mmol/L Anion Gap (6-13) BUN (6-20) mg/dL Creatinine (0.4-1.0) mg/dL Estimated GFR (MDRD) (>89) Glucose (70-100) mg/dL Lactic Acid (0.5-2.2) mmol/L Calcium (8.5-10.3) mg/dL Total Bilirubin (0.2-1.0) mg/dL AST (10-42) IU/L ALT (10-60) IU/L Alkaline Phosphatase (42-121) IU/L Total Protein (6.7-8.2) g/dL Albumin (3.2-5.5) g/dL Globulin (2.1-4.2) g/dL Albumin/Globulin Ratio (1.0-2.2) Urine Color Urine Clarity (CLEAR) Urine pH (5.0-7.5) PH Ur Specific [place] (1.002-1.030) Urine Protein (NEGATIVE) mg/dL Urine Glucose (UA) (NEGATIVE) mg/dL Urine Ketones (NEGATIVE) mg/dL Urine Occult Blood (NEGATIVE) Urine Nitrite (NEGATIVE) Urine Bilirubin (NEGATIVE) Urine Urobilinogen (NORMAL) E.U./dL Ur Leukocyte Esterase (NEGATIVE) Urine RBC (0-5) /HPF Urine WBC (0-5) /HPF Ur Squamous Epith Cells (<= Few) Urine Bacteria (None Seen) /HPF Urine Casts /LPF Urine Culture Comments ABX Reporting Has patient been on IV antibiotics over the past 48 hours?: Yes Sepsis Event Note (H) - Evaluation Current Stage of Sepsis: Resolved Possible source of Sepsis: positive: Genitourinary - Sepsis Criteria Sepsis Criteria: Recorded Temperature greater than 38.3C or Less than 36C (at home prior to admission ), WBC count greater than 12,000 or less than 4000 Assessment/Plan - Problem List (1) Sepsis secondary to UTI Impression: She presented as fever, low blood pressure, but no lactic acidosis. She had neutropenia. All of those criteria have resolved except for the neutropenia. That is improving. Source of infection appears to be UTI . Urine and blood cultures have been done and are pending results. C. difficile has yet to be collected. Plan: Continue supportive care with IV fluids, antiemetics, antipyretics. She i s on cefepime day #2. We will adjust medications on the basis of culture results. (2) Neutropenic fever Impression: She has neutropenia secondary to chemotherapy. Fever has resolved. Today's ANC is 200. I have explained that we will await for her ANC to get above 500. She will be transfused if her hemoglobin drops below 7. Or her platelets drop below 30. (3) Diabetes mellitus type 2, controlled Impression: She is on Trulicity And metformin at home. Admitting provider has not done orders for diabetes. We will implement insulin eating orders. Start Lantus 5 units this morning. Sliding scale with meals. Check A1c. No metformin while here. Other complications of her diabetes are peripheral neuropathy. Lyrica has been resumed. Qualifiers: Diabetes mellitus snf insulin use: without snf use Diabetes mellitus complication detail: with nephropathy (4) HTN (hypertension) Impression: Blood pressure is currently low. Or normal. At home she takes Avapro 150 mg a day, metoprolol tartrate 50 mg daily. When I resume her medications I will most likely start with her metoprolol to avoid rebound tachycardia. And depending on how her blood pressure tolerates we will then start Avapro. Qualifiers: Hypertension type: primary hypertension Qualified Code(s): I10 - Essential (primary) hypertension (5) Stomatitis Impression: Bilson solution (6) Nausea vomiting and diarrhea Impression: Vomiting and diarrhea have resolved since she has been admitted and hydrated. Nausea is still problematic. I will have nutrition services see her and see if we can come up with a smoothie or another type of liquid nutrition that she can set up with a straw that would be more palatable for caloric intake (7) Metastatic breast cancer Impression: She will follow-up with Dr. Harika Lopez. Dr. Lopez will be notified to the patient is here. The patient's primary care provider is Dr. Marie
[2021-12-24 09:02] LABS: HCT - HEMATOCRIT 29.4 % (37.0-47.0); HGB - HEMOGLOBIN 9.4 g/dL (12.0-16.0); MEAN CORPUSCULAR HEMOGLOBIN 28.7 pg (27.0-31.0); MEAN CORPUSCULAR VOLUME 89.6 fL (81.0-99.0); MEAN PLATELET VOLUME 10.8 fL (7.9-10.8); MONOCYTES % (AUTO) 48.6 %; NEUTROPHILS % (AUTO) 10.4 %; PLT - PLATELET COUNT 133 10^3/uL (130-450); RED BLOOD COUNT 3.28 10^6/uL (4.20-5.40); RED CELL DISTRIBUTION WIDTH 15.3 % (12.0-15.0)
[2021-12-24 09:12] LABS: SLIDE REVIEW? Indicated; WHITE BLOOD COUNT 1.1 x10^3/uL (4.8-10.8)
[2021-12-24 09:13] LABS: ABNORMAL LYMPHS % (MANUAL) 0 %
[2021-12-24 09:22] LABS: CALCIUM 7.5 mg/dL (8.5-10.3); CREATININE 0.5 mg/dL (0.4-1.0); POTASSIUM 3.4 mmol/L (3.5-5.0)
[2021-12-24] MEDS: INSULIN GLARGINE-YFGN 300 UNIT/3 ML PEN SUBQ SCH (09:46)
[2021-12-24 10:07] LABS: BAND NEUTROPHILS % (MANUAL) 4 %; LYMPHOCYTES % (MANUAL) 20 %; MONOCYTES # (MANUAL) 0.5 10^3/uL (0.0-1.0)
[2021-12-24 10:08] LABS: LYMPHOCYTES # (MANUAL) 0.4 10^3/uL (1.5-3.5); NEUTROPHILS # (MANUAL) 0.3 10^3/uL (1.5-6.6); REACTIVE LYMPHS % (MANUAL) 12 %
[2021-12-24] MEDS: MAGIC MOUTHWASH 120 ML BOTTLE PO PRN (11:32)
[2021-12-24] MEDS: INSULIN LISPRO 300 UNIT/3 ML PEN SUBQ SCH ×3 (12:35→20:48)
[2021-12-24] MEDS: SODIUM CHLORIDE 0.9% 1,000 ML IV SCH ×2 (14:16→20:08)
[2021-12-24] MEDS: ACETAMINOPHEN 325 MG TABLET PO PRN (16:36)
[2021-12-24 16:47] LABS: ESTIMATED AVERAGE GLUCOSE 163 mg/dL (70-100); HEMOGLOBIN A1c% 7.3 % (4.27-6.07)
[2021-12-24] MEDS: ZINC SULFATE 220 MG CAPSULE PO SCH (16:58)
--- NOTE | 2021-12-24 17:10 | PHARMACY PROGRESS NOTE ---
- Best Possible Medication History Admit Date and Time: 12/23/21 6193 Processed by: Pharmacy Medication History completed: Yes Patient Interview: Completed Secondary Source(s): Pharmacy records As the person ultimately responsible for medication therapy, providers are able to order a medication from an existing home medication list in [facility] via the "Reconcile Routine" prior to Confirmation of that medication by technical support coordinator. Such practice is discouraged except when the physician, in their clinical judgment, deems that a medical need exists for a medication without regard to previous use.
[2021-12-24] MEDS: VANCOMYCIN INJ 1 GM, VANCOMYCIN INJ 500 MG in SODIUM CHLORIDE 0.9% 500 ML IV SCH (20:08)
[2021-12-25] MEDS: MAGIC MOUTHWASH 120 ML BOTTLE PO PRN (00:21)
[2021-12-25] MEDS: HYDROcod/ACETAM 5/325 MG TABLET PO PRN ×2 (00:26→15:32)
[2021-12-25 05:18] LABS: HCT - HEMATOCRIT 29.5 % (37.0-47.0); HGB - HEMOGLOBIN 9.5 g/dL (12.0-16.0); LYMPHOCYTES % (AUTO) 39.5 %; MEAN CORPUSCULAR HEMOGLOBIN 28.7 pg (27.0-31.0); MEAN CORPUSCULAR HGB CONC 32.2 g/dL (32.0-36.0); MEAN CORPUSCULAR VOLUME 89.1 fL (81.0-99.0); MEAN PLATELET VOLUME 10.2 fL (7.9-10.8); MONOCYTES % (AUTO) 46.3 %; NEUTROPHILS % (AUTO) 14.2 %; PLT - PLATELET COUNT 135 10^3/uL (130-450); RED BLOOD COUNT 3.31 10^6/uL (4.20-5.40); RED CELL DISTRIBUTION WIDTH 15.4 % (12.0-15.0)
[2021-12-25 05:25] LABS: CALCIUM 7.5 mg/dL (8.5-10.3); CREATININE 0.5 mg/dL (0.4-1.0); POTASSIUM 3.1 mmol/L (3.5-5.0)
[2021-12-25 05:38] LABS: WHITE BLOOD COUNT 1.5 x10^3/uL (4.8-10.8)
[2021-12-25 05:40] LABS: ABNORMAL LYMPHS % (MANUAL) 0 %; BAND NEUTROPHILS % (MANUAL) 0 %
[2021-12-25 05:46] LABS: DIFFERENTIAL COMMENT MANUAL DIFFERENTIAL; LYMPHOCYTES # (MANUAL) 0.9 10^3/uL (1.5-3.5); LYMPHOCYTES % (MANUAL) 57 %; MONOCYTES # (MANUAL) 0.5 10^3/uL (0.0-1.0); NEUTROPHILS # (MANUAL) 0.1 10^3/uL (1.5-6.6); PLATELET ESTIMATE, MANUAL NORMAL (130-450,000) (NORMAL); RBC MORPHOLOGY (MULTIPLE) NORMAL APPEARANCE (NORMAL)
[2021-12-25] MEDS: PREGABALIN 25 MG CAPSULE PO SCH ×3 (05:48→21:18)
[2021-12-25] MEDS: PREGABALIN 100 MG CAPSULE PO SCH ×3 (05:49→21:13)
[2021-12-25] MEDS: SODIUM CHLORIDE 0.9% 1,000 ML IV SCH ×2 (07:21→14:05)
[2021-12-25] MEDS: ACETAMINOPHEN 325 MG TABLET PO PRN ×2 (07:31→14:12)
--- NOTE | 2021-12-25 07:35 | PROVIDER PROGRESS NOTE ---
Subjective - Prog Note Date Prog Note Date: 12/25/21 Prog Note Time: 07:31 - Subjective Subjective: The nausea persists. But vomiting stopped. Not had any diarrhea since yesterday until this morning. We are now able to submit stool for C. difficile. She is eating and drinking. Probably 25 to 50% of her food. She denies chest pain, palpitations, shortness of breath. Her IV has fallen out in the right arm and anesthesia has replaced it. But then that became infiltrated as well. Since admission she is not had any fevers. She feels back to baseline with regards to strength and activity. It was already diminished to begin with because of recent chemotherapy but she is able to walk in the room, go to the bathroom, feed herself. We discussed her blood pressure pills from home. She wants to take them but I explained that her blood pressure has been on the low side. I am opting to hold those medications until blood pressure rebounds to a higher level. She also asked about her insulin. I explained that we cannot give Trulicity since it is not on her formulary. She asked if she could bring her own in from home and I said that as long as it still in its original package and appropriately labeled pharmacy may be able to verify and let her take her own Trulicity. Trulicity is given once a week. Current Medications - Current Medications Current Medications: Active Medications Acetaminophen (Acetaminophen 325 Mg Tablet) 650 mg PO Q4HR PRN PRN Reason: Pain 1 to 4, or Fever Last Admin: 12/25/21 07:31 Dose: 650 mg Hydrocodone Bitart/Acetaminophen (Hydrocod/Acetam 5/325 Mg Tablet) 1 tab PO Q4HR PRN PRN Reason: Pain 5 to 7 Last Admin: 12/25/21 00:26 Dose: 1 tab Heparin Sodium (Porcine) (Heparin 5,000 Unit/Ml Vial) 5,000 unit SUBQ BID JAY Last Admin: 12/24/21 21:47 Dose: 5,000 unit Hydromorphone HCl (Hydromorphone 0.5 Mg/0.5 Ml Syringe) 0.5 mg IVP Q2H PRN PRN Reason: Pain 8 to 10 Sodium Chloride (Normal Saline 0.9%) 1,000 mls @ 100 mls/hr IV .Q10H JAY Last Admin: 12/25/21 07:21 Dose: Not Given Cefepime HCl 2 gm/ Sodium (Chloride) 100 mls @ 200 mls/hr IV Q8H [facility] Last Admin: 12/24/21 23:33 Dose: Not Given Vancomycin HCl 1 gm/Vancomycin HCl 500 mg/ Sodium Chloride 500 mls @ 250 mls/hr IV 0800,2000 [facility] Last Admin: 12/24/21 20:08 Dose: Not Given Insulin Glargine-yfgn (Insulin Glargine-Yfgn 300 Unit/3 Ml Pen) 5 unit SUBQ QDBREAKFAST [facility] Last Admin: 12/24/21 09:46 Dose: Not Given Insulin Human Lispro (Insulin Lispro 300 Unit/3 Ml Pen) 1 - 9 unit SUBQ 0800,1200,1700,2100 [facility]; Protocol Last Admin: 12/24/21 20:48 Dose: Not Given Levothyroxine Sodium (Levothyroxine 25 Mcg Tablet) 25 mcg PO DAILY [facility] Last Admin: 12/24/21 08:25 Dose: 25 mcg Multi-Ingredient Mouthwash/Gargle (Magic Mouthwash 120 Ml Bottle) 30 ml PO Q4H PRN PRN Reason: Mouth Sore Pain Last Admin: 12/25/21 00:21 Dose: 30 ml Ondansetron HCl (Ondansetron 4 Mg/2 Ml Vial) 4 mg IVP Q6HR PRN PRN Reason: Nausea / Vomiting Potassium Chloride (Potassium Chloride 20 Meq Tablet) 20 meq PO BIDWM [facility] Pregabalin (Pregabalin 100 Mg Capsule) 100 mg PO TID [facility] Last Admin: 12/25/21 05:49 Dose: 100 mg Pregabalin (Pregabalin 25 Mg Capsule) 50 mg PO TID [facility] Last Admin: 12/25/21 05:48 Dose: 50 mg Prochlorperazine Edisylate (Prochlorperazine 10 Mg/2 Ml Vial) 10 mg IVP Q6HR PRN PRN Reason: Nausea / Vomiting Sertraline HCl (Sertraline 50 Mg Tablet) 150 mg PO DAILY [facility] Last Admin: 12/24/21 08:26 Dose: 150 mg Sodium Chloride (Sodium Chloride Flush 0.9% 10 Ml Syringe) 10 ml IVP PRN PRN PRN Reason: NEEDED PER PROVIDER ORDERS Sodium Chloride (Sodium Chloride Flush 0.9% 10 Ml Syringe) 10 ml IVP 010 0,0900,1700 [facility] Last Admin: 12/24/21 23:33 Dose: Not Given Zinc Sulfate (Zinc Sulfate 220 Mg Capsule) 220 mg PO DAILY JAY Stop: 12/28/21 17:00 Last Admin: 12/24/21 16:58 Dose: 220 mg Sertraline HCl 150 mg PO DAILY 06/27/18 metFORMIN [Glucophage] 1,000 mg PO BIDWM 06/27/18 Cholecalciferol (Vitamin D3) [Vitamin D3] 2,000 unit PO DAILY 05/10/19 Multivitamin [Multivitamins] 1 tab PO DAILY 05/10/19 Vitamin B Complex/Folic Acid [Vitamin B Complex Tablet] 1 tab PO DAILY 05/10/19 Celecoxib 200 mg PO DAILY 10/16/19 Levothyroxine Sodium [Levoxyl] 25 mcg PO QDAC 04/16/21 Rosuvastatin Calcium [Crestor] 20 mg PO DAILY 04/16/21 Irbesartan [Avapro] 150 mg PO DAILY 10/14/21 Dulaglutide [Trulicity] 0.75 mg SQ UD 11/10/21 Prochlorperazine Maleate [Compazine] 10 mg PO Q6HR PRN 12/22/21 Loperamide [Imodium] 2 mg PO ONCE PRN MDD 8 CAPS (16 MG) 12/24/21 Magic Mouthwash 5 ml PO RTQ4H 12/24/21 Metoprolol Tartrate [Lopressor] 50 mg PO BID 12/24/21 Ondansetron [Ondansetron Odt] 8 mg PO Q8H PRN 12/24/21 dexAMETHasone [Decadron] 8 mg PO BIDWM 12/24/21 Objective - Vital Signs/Intake & Output Reviewed Vital Signs: Yes Vital Signs: Vital Signs x48h Temp Pulse Pulse Resp BP Pulse Ox 12/25/21 07:25 37.3 C 78 16 125/62 99 12/25/21 05:00 37.3 C 71 16 105/51 L 95 12/25/21 00:10 37.2 C 78 18 108/59 L 96 Intake & Output: Intake & Output 12/22/21 12/23/21 12/24/21 12/25/21 23:59 23:59 23:59 23:59 Intake Total 3717.54 2823.333 200 Output Total 650 2600 1150 Balance 3067.54 223.333 -950 - Objective General Appearance: positive: No acute distress, Alert, Other (Morbidly obese white female who looks stated age, sitting up at the side of the bed eating breakfast and speaking on the phone.) Eyes Bilateral: positive: PERRL, EOMI ENT: positive: No signs of dehydration Neck: positive: No JVD. negative: Stiff neck Respiratory: positive: No respiratory distress. negative: Wheezes, Rales, Rhonchi Cardiovascular: positive: Regular rate & rhythm Abdomen: positive: Non-tender, Nml bowel sounds, No distention Skin: positive: Warm, Dry Extremities: positive: Full ROM, No pedal edema Neurologic/Psychiatric: positive: Oriented x3, CN's nml (2-12), Motor nml - Lab Results Fish Bones: 12/25/21 05:10 12/25/21 05:10 Other Labs: Lab Results x24hrs 12/25/21 12/25/21 12/25/21 Range/Units 07:19 05:10 05:10 WBC 1.5 L* (4.8-10.8) x10^3/uL RBC 3.31 L (4.20-5.40) 10^6/uL Hgb 9.5 L (12.0-16.0) g/dL Hct 29.5 L (37.0-47.0) % MCV 89.1 (81.0-99.0) fL MCH 28.7 (27.0-31.0) pg MCHC 32.2 (32.0-36.0) g/dL RDW 15.4 H (12.0-15.0) % Plt Count 135 (130-450) 10^3/uL MPV 10.2 (7.9-10.8) fL Neut # (Auto) Not Reportable Lymph # (Auto) Not Reportable Millard # (Auto) Not Reportable Eos # (Auto) Not Reportable Baso # (Auto) Not Reportable Absolute Nucleated RBC Not Reportable Total Counted 100 Band Neuts % (Manual) 0 (0 - 10) % Reactive Lymphs % (Man) % Abnorm Lymph % (Manual) 0 % Nucleated RBC % Not Reportable Neutrophils # (Manual) 0.1 L* (1.5-6.6) 10^3/uL Lymphocytes # (Manual) 0.9 L (1.5-3.5) 10^3/uL Monocytes # (Manual) 0.5 (0.0-1.0) 10^3/uL Eosinophils # (Manual) 0.0 (0-0.7) 10^3/uL Basophils # (Manual) 0.0 (0-0.1) 10^3/uL Differential Comment MANUAL DIFFERENTIAL Manual Slide Review Platelet Estimate NORMAL (130-450,000) (NORMAL) RBC Morph Micro Appear NORMAL APPEARANCE (NORMAL) Sodium 136 (135-145) mmol/L Potassium 3.1 L (3.5-5.0) mmol/L Chloride 102 (101-111) mmol/L Carbon Dioxide 26 (21-32) mmol/L Anion Gap 8.0 (6-13) BUN 8 (6-20) mg/dL Creatinine 0.5 (0.4-1.0) mg/dL Estimated GFR (MDRD) 123 (>89) Glucose 103 H (70-100) mg/dL POC Whole Bld Glucose 94 (70 - 100) mg/dL Estimat Average Glucose (70-100) mg/dL Hemoglobin A1c % (4.27-6.07) % Calcium 7.5 L (8.5-10.3) mg/dL Coronavirus (PCR) 12/24/21 12/24/21 12/24/21 Range/Units 20:41 16:37 08:52 WBC (4.8-10.8) x10^3/uL RBC (4.20-5.40) 10^6/uL Hgb (12.0-16.0) g/dL Hct (37.0-47.0) % MCV (81.0-99.0) fL MCH (27.0-31.0) pg MCHC (32.0-36.0) g/dL RDW (12.0-15.0) % Plt Count (130-450) 10^3/uL MPV (7.9-10.8) fL Neut # (Auto) Lymph # (Auto) Millard # (Auto) Eos # (Auto) Baso # (Auto) Absolute Nucleated RBC Total Counted Band Neuts % (Manual) (0 - 10) % Reactive Lymphs % (Man) % Abnorm Lymph % (Manual) % Nucleated RBC % Neutrophils # (Manual) (1.5-6.6) 10^3/uL Lymphocytes # (Manual) (1.5-3.5) 10^3/uL Monocytes # (Manual) (0.0-1.0) 10^3/uL Eosinophils # (Manual) (0-0.7) 10^3/uL Basophils # (Manual) (0-0.1) 10^3/uL Differential Comment Manual Slide Review Platelet Estimate (NORMAL) RBC Morph Micro Appear (NORMAL) Sodium (135-145) mmol/L Potassium (3.5-5.0) mmol/L Chloride (101-111) mmol/L Carbon Dioxide (21-32) mmol/L Anion Gap (6-13) BUN (6-20) mg/dL Creatinine (0.4-1.0) mg/dL Estimated GFR (MDRD) (>89) Glucose (70-100) mg/dL POC Whole Bld Glucose 108 H 95 (70 - 100) mg/dL Estimat Average Glucose 163 H (70-100) mg/dL Hemoglobin A1c % 7.3 H (4.27-6.07) % Calcium (8.5-10.3) mg/dL Coronavirus (PCR) 12/24/21 12/24/21 12/23/21 Range/Units 08:52 08:52 19:08 WBC 1.1 L* (4.8-10.8) x10^3/uL RBC 3.28 L (4.20-5.40) 10^6/uL Hgb 9.4 L (12.0-16.0) g/dL Hct 29.4 L (37.0-47.0) % MCV 89.6 (81.0-99.0) fL MCH 28.7 (27.0-31.0) pg MCHC 32.0 (32.0-36.0) g/dL RDW 15.3 H (12.0-15.0) % Plt Count 133 (130-450) 10^3/uL MPV 10.8 (7.9-10.8) fL Neut # (Auto) BEHAVIORAL HEALTH SPECIALIST Lymph # (Auto) BEHAVIORAL HEALTH SPECIALIST Millard # (Auto) BEHAVIORAL HEALTH SPECIALIST Eos # (Auto) BEHAVIORAL HEALTH SPECIALIST Baso # (Auto) BEHAVIORAL HEALTH SPECIALIST Absolute Nucleated RBC BEHAVIORAL HEALTH SPECIALIST Total Counted 50 Band Neuts % (Manual) 4 (0 - 10) % Reactive Lymphs % (Man) 12 % Abnorm Lymph % (Manual) 0 % Nucleated RBC % BEHAVIORAL HEALTH SPECIALIST Neutrophils # (Manual) 0.3 L* (1.5-6.6) 10^3/uL Lymphocytes # (Manual) 0.4 L (1.5-3.5) 10^3/uL Monocytes # (Manual) 0.5 (0.0-1.0) 10^3/uL Eosinophils # (Manual) 0.0 (0-0.7) 10^3/uL Basophils # (Manual) 0.0 (0-0.1) 10^3/uL Differential Comment Manual Slide Review Indicated Platelet Estimate (NORMAL) RBC Morph Micro Appear (NORMAL) Sodium 138 (135-145) mmol/L Potassium 3.4 L (3.5-5.0) mmol/L Chloride 107 (101-111) mmol/L Carbon Dioxide 24 (21-32) mmol/L Anion Gap 7.0 (6-13) BUN 11 (6-20) mg/dL Creatinine 0.5 (0.4-1.0) mg/dL Estimated GFR (MDRD) 123 (>89) Glucose 123 H (70-100) mg/dL POC Whole Bld Glucose (70 - 100) mg/dL Estimat Average Glucose (70-100) mg/dL Hemoglobin A1c % (4.27-6.07) % Calcium 7.5 L (8.5-10.3) mg/dL Coronavirus (PCR) NEGATIVE ABX Reporting Has patient been on IV antibiotics over the past 48 hours?: Yes Sepsis Event Note (H) - Evaluation Current Stage of Sepsis: Resolved Possible source of Sepsis: positive: Genitourinary - Sepsis Criteria Sepsis Criteria: Recorded Temperature greater than 38.3C or Less than 36C (at home prior to admission ), WBC count greater than 12,000 or less than 4000 Assessment/Plan - Problem List (1) UTI (urinary tract infection) Impression: She presented as fever, low blood pressure, but no lactic acidosis. She had neutropenia. Complaints were of N/V/D. All of those criteria met requirement for sepsis and they have resolved except for the neutropenia. That is not improving. Source of infection appears to be UTI . Urine and blood cultures have been done. Blood cultures are negative. Urine is growing gram-negative rods, 2 of them. She just had a loose bowel movement this morning so C. difficile has been collected but results pending. Plan: Continue supportive care with IV fluids, antiemetics, antipyretics. She is on cefepime day #3 but IV has infiltrated again on R and we cannot use arm on L. She is supposed to get a port at [facility]. Per the patient history, our local surgeon feels he cannot place it (Dr. 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 We will adjust medications on the basis of culture results. (2) Neutropenic fever Impression: She has neutropenia secondary to chemotherapy. Fever has resolved. Today's ANC is 200. I have explained that Goal is for her to get ANC to get above 500. She will be transfused if her hemoglobin drops below 7. Or her platelets drop below 30. I spoke to . He is the oncologist at the [facility] clinic today. Dr. Lopez is her usual oncologist. As long as she has no systemic complaints of fever, rigors, or sepsis criteria, the patient can go home on oral antibiotics. He was wondering if she needed to go on growth stimulating factors. In reviewing her record and her chemo regimen which was last given December 15, he does not recommend growth factors at this time. He expects recovery of her bone marrow to be in the next 7 days. He endorses sending her home on oral antibiotics. I asked the patient if she would like to go home today on empiric therapy for her gram-negative rods in her urine. I explained that it would be an educated guess on my part but I would not have clear delineation of the identity of the bacteria. Or she can wait until I get sensitivities and identification and then send her home on oral antibiotics. The patient is opted to stay until we know the bacteria and then she will go home (3) Diabetes mellitus type 2, controlled Impression: She is on Trulicity And metformin at home. Admitting provider had not done orders for diabetes. I implemented insulin eating orders and started Lantus 5 units 12/24. Sliding scale with meals. Check A1c. No metformin while here. I also did not want to use metformin while in the hospital. Pebbles has been res umed. The patient states that she will not take any form of insulin unless his Trulicity. And she wants her metformin. I explained to her why we do not use it in the hospital. Complications of her diabetes or peripheral neuropathy and nephropathy.. Glucose yesterday was 95, 108, and this morning she is 94. She is asking if she can use her Trulicity here. I will have her bring it in for pharmacy to verify to see if she can take it here. 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 Blood pressure continues to be on the low side. At midnight she was 108 systolic. This morning she is 105 systolic. By 730 this morning she is 125. At home she takes Avapro 150 mg a day, metoprolol tartrate 50 mg daily. When I resume her medications I will most likely start with her metoprolol to avoid rebound tachycardia. And depending on how her blood pressure tolerates we will then start Avapro. She is asking to resume her blood pressure medicines and I explained to her that I will not resume them until her blood pressure has come up a bit. Qualifiers: Hypertension type: primary hypertension Qualified Code(s): I10 - Essential (primary) hypertension (5) Stomatitis Impression: Bilson solution is not available and as such Magic mouthwash was ordered (6) Nausea vomiting and diarrhea Impression: Vomiting and diarrhea have resolved since she has been admitted and hydrated. Nausea is still problematic. nutrition services has seen her and we are seeing if we can come up with a smoothie or another type of liquid nutrition that she can set up with a straw that would be more palatable for caloric intake Stool submitted for C. difficile today since she had 1 loose stool since admission (7) Metastatic breast cancer Impression: She will follow-up with Dr. Harika Lopez. Dr. Lopez will be notified to the patient is here. The patient's primary care provider is Dr. Marie (8) Hypokalemia supplement po and recheck in am
[2021-12-25] MEDS: ZINC SULFATE 220 MG CAPSULE PO SCH (08:03)
[2021-12-25] MEDS: POTASSIUM CHLORIDE 20 MEQ TABLET PO SCH ×2 (08:04→17:44)
[2021-12-25] MEDS: SERTRALINE 50 MG TABLET PO SCH (08:04)
[2021-12-25] MEDS: LEVOTHYROXINE 25 MCG TABLET PO SCH (08:05)
[2021-12-25] MEDS: HEPARIN 5,000 UNIT/ML VIAL SUBQ SCH ×2 (08:05→21:14)
[2021-12-25] MEDS: CEFEPIME 2 GM in SODIUM CHLORIDE 0.9% MINIBAG 100 ML IV SCH (11:56)
[2021-12-25] MEDS: INSULIN GLARGINE-YFGN 300 UNIT/3 ML PEN SUBQ SCH (11:57)
[2021-12-25] MEDS: INSULIN LISPRO 300 UNIT/3 ML PEN SUBQ SCH ×4 (11:57→21:13)
[2021-12-25] MEDS: VANCOMYCIN INJ 1 GM, VANCOMYCIN INJ 500 MG in SODIUM CHLORIDE 0.9% 500 ML IV SCH ×2 (14:04→20:29)
[2021-12-25] MEDS: SODIUM CHLORIDE FLUSH 0.9% 10 ML SYRINGE IVP SCH ×3 (14:06→23:24)
[2021-12-25] MEDS ORDERED: ONDANSETRON ODT 4 MG TABLET TL PRN (15:19)
[2021-12-25] MEDS ORDERED: diphenhydrAMINE 25 MG CAPSULE PO PRN (15:19)
[2021-12-25] MEDS ORDERED: PROCHLORPERAZINE 5 MG TABLET PO PRN (15:20)
[2021-12-25] MEDS: CIPROFLOXACIN 250 MG TABLET PO SCH (21:13)
[2021-12-26] MEDS: PREGABALIN 25 MG CAPSULE PO SCH (05:04)
[2021-12-26] MEDS: PREGABALIN 100 MG CAPSULE PO SCH (05:04)
[2021-12-26 05:05] LABS: BASOPHILS % (AUTO) 0.6 %; EOSINOPHILS % (AUTO) 0.6 %; HCT - HEMATOCRIT 27.7 % (37.0-47.0); MEAN CORPUSCULAR HEMOGLOBIN 28.5 pg (27.0-31.0); MEAN CORPUSCULAR HGB CONC 32.5 g/dL (32.0-36.0); MEAN CORPUSCULAR VOLUME 87.7 fL (81.0-99.0); MEAN PLATELET VOLUME 9.8 fL (7.9-10.8); MONOCYTES % (AUTO) 41.7 %; NEUTROPHILS % (AUTO) 20.3 %; PLT - PLATELET COUNT 141 10^3/uL (130-450); RED BLOOD COUNT 3.16 10^6/uL (4.20-5.40); RED CELL DISTRIBUTION WIDTH 15.1 % (12.0-15.0)
[2021-12-26 05:11] LABS: CALCIUM 7.9 mg/dL (8.5-10.3); CREATININE 0.6 mg/dL (0.4-1.0)
[2021-12-26 05:12] LABS: WHITE BLOOD COUNT 1.6 x10^3/uL (4.8-10.8)
[2021-12-26 05:13] LABS: ABNORMAL LYMPHS % (MANUAL) 0 %; BAND NEUTROPHILS % (MANUAL) 0 %
[2021-12-26 05:28] LABS: BASOPHILS % (MANUAL) 1 %; DIFFERENTIAL COMMENT MANUAL DIFFERENTIAL; LYMPHOCYTES # (MANUAL) 0.7 10^3/uL (1.5-3.5); LYMPHOCYTES % (MANUAL) 43 %; MONOCYTES # (MANUAL) 0.5 10^3/uL (0.0-1.0); NEUTROPHILS # (MANUAL) 0.4 10^3/uL (1.5-6.6); PLATELET ESTIMATE, MANUAL NORMAL (130-450,000) (NORMAL); RBC MORPHOLOGY (MULTIPLE) NORMAL APPEARANCE (NORMAL)
[2021-12-26] MEDS: LEVOTHYROXINE 25 MCG TABLET PO SCH (07:34)
[2021-12-26] MEDS: INSULIN GLARGINE-YFGN 300 UNIT/3 ML PEN SUBQ SCH (07:34)
[2021-12-26] MEDS: INSULIN LISPRO 300 UNIT/3 ML PEN SUBQ SCH (07:34)
[2021-12-26 07:35] VITALS: BP 120/63
--- NOTE | 2021-12-26 07:44 | Discharge Plan ---
Discharge Plan Problem Reviewed?: Yes Disposition: Home, Self Care Condition: Stable Prescriptions: Ciprofloxacin [Cipro] 500 mg PO BID #16 tablet Diet: Regular (aim for neutropenic diet until white cells are high enough for "ANC" greater than 500) Activity Restrictions: Activity as Tolerated Shower Restrictions: No Driving Restrictions: No Instruction Topics: Nutrition Chemo Health Concerns: Unfortunately you have metastatic breast cancer and are undergoing chemotherapy again. Your first chemotherapy was last week and it induced quite a bit of nausea, vomiting, diarrhea as well is a sore mouth with mouth ulcers. You developed a fever and came to the emergency room and we identified you as having a very low white cell count and a urinary tract infection. You have responded well to IV fluids to hydrate you as well as intravenous antibiotics to treat the urinary tract infection. When your white cell counts are low we call that neutropenia. Anything below 500 is considered putting the patient at risk for infection. Today's white cell count/absolute neutrophil count is 400. Your goal is to be above 500 to be out of the danger zone. Most likely your bone marrow will rebound in the next day or so on its own. Your case was discussed with the oncology clinic here at the hospital. As long as your blood pressure was stable, your oxygen was normal, and that you were able to take pills for your infection, you could go home Plan of Treatment: 1. Please see your oncologist in the next week. The [facility] clinic will be given you a phone call for weekly blood draws to follow your white cell count and your anemia 2. You have 4 more days of antibiotics to take. The bacteria that grew in your urine were E. coli and Proteus. These antibiotics specifically cover these bacteria.Please also continue Magic mouthwash for your mouth sores. 3. For completeness sake, please see your primary care provider in the next 1 to 2 weeks for continuity of care. This will let your primary care provider stay up-to-date with your disease management. Care Goals: At this time your goals are to get through this acute episode of care and have resolution of your urinary tract infection. A larger goal will be to get through treatment for breast cancer. Assessment: Patient is alert, oriented, normal speech patterns, and will follow through on plan No Smoking: If you smoke, Please STOP! Call for help. Follow-up with: Jah Marie MD [Primary Care Provider] - Filemon Lopez MD [Physician No Access] -
[2021-12-26] MEDS: SODIUM CHLORIDE FLUSH 0.9% 10 ML SYRINGE IVP SCH (07:45)
--- NOTE | 2021-12-26 07:52 | DISCHARGE SUMMARY ---
"Discharge Summary Admit Date: 12/24/21 Discharge Date: 12/26/21 Discharging Provider: Latoya Branham MD Primary Care Provider: Jah Marie MD Code Status: Attempt Resuscitation Condition at Discharge: Stable Discharge Disposition: 01 Home, Self Care - DIAGNOSES Discharge Diagnoses with Status of Each Condition: 1. Sepsis criteria on admission, resolved 2. Neutropenic fever 3. UTI with E. coli and Proteus 4. Nausea vomiting and diarrhea resolved 5. Type 2 diabetes mellitus, controlled, with complications of neuropathy and nephropathy, on long-term insulin 6. Hypertension 7. Stomatitis 8. Metastatic breast cancer to liver 9. Hypokalemia - HPI History of Present Illness: Ms Lantigua is a 66 yo F recently diagnosed with metastatic breast cancer, She had her first chemo on 12/15/21. For the past 4-5 days she has had severe nausea, vomiting, diarrhea. Pt reports explosive diarrhea and vomiting 5-6 times daily. Seen by oncology yesterday and prescribed on phenergan, zofran, imodium. She has a diffuse aching/cramping in her abdomen. Metallic taste in her mouth. No appetite. Fever today 101.3. Denies hematemesis, hematuria or hematochezia. Reports decreased urinary frequency, denies dysuria. Feels dizzy and lightheaded at times. Denies cp, sob, cough, sputum production, leg swelling. 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 coli and Proteus mirabilis. Proteus was resistant to nitrofurantoin. Chest x-ray was without acute cardiopulmonary abnormalities. No focal consolidations. Abdomen pelvis CT had metastatic cancer to the liver. Multiple layering gallstones in the gallbladder without inflammatory changes. Solid organs were otherwise normal. There is no hydronephrosis or nephrolithiasis. She had a stable anterior left renal cortical hypodensity representing a cyst. Prominent portacaval and retroperitoneal lymph nodes. Fat-containing umbilical hernia. - HOSPITAL COURSE Hospital Course: The patient was started on empiric antibiotic therapy for neutropenic fever. She had problems with IV line access and lost her IV in her right arm multiple times. We cannot use IVs in her left arm because of lymphedema and previous mastectomy. She is already had a port in place but that was removed from the right side. It was a nonfunctioning port and she is in the midst of trying to get a port placed on the left side. Our local surgeon did not want to do it because of the difficulty of anatomy and asked that she is in the process of speaking to [place] to get her port done there. She was able to be switched to oral antibiotics when she lost her last IV since it grew out gram-negative rods in her urine. Once identification and sensitivities repeat confirmed she was able to be discharged home on Cipro 500 twice daily for at least 4 more days. Her case was discussed with oncology clinic, Dr. Lyon, and she did not need to stay in the hospital until her ANC was greater than 500. Her ANC at discharge was 400. She is asked to follow-up with her primary care provider in the next 2 to 3 weeks. She is due to be seen at the medical ambulatory clinic for blood draws to follow her CBCs. Oncology did not feel she need colony-stimulating factor. Her last chemo was December 15 and her bone marrow should be rebounding this coming week. During her stay her diabetes was controlled. We were unable to give her Trulicity and she did not want to take Lantus or sliding scale insulin. Glucose remained very controlled and ranged from 68-111 during her stay. She asked us to please send a prescription for Magic mouthwash to [facility]. Since her potassium is low I am sending her home with a potassium prescription but she wants that sent to [facility]. The Cipro was also sent to [facility]. Zinc [id number] is also recommended. She is discharged in stable condition. Temperature is 37.2. Heart rate 79. Blood pressure 120/63. Respirations 16. 97% on room air. She is a 5 foot 6 inch female who is 108 kg. Looks fatigued. Muted affect. Nursing describes her as a flat affect who is sad and lonely. Neck is supple no adenopathy. Lungs have diminished breath sounds at the bases but there is no increased respiratory effort and there is otherwise clear. She has a regular rate and rhythm.The left breast (status postmastectomy) has had a tissue flap put over it from her last mastectomy. It has not healed well. There is areas of peeling skin, and skin that is come off in quarter sized patches. There is no fluctuance, redness, but she says this is a residual of radiation siddiqui. She has never really healed. The abdomen is obese, soft, nontender. Extremities have no edema. She is able to sit up on her own, ambulate to the bathroom on her own, and is eating anywhere from bites of food up to 75% of her food. She has no appetite and is forcing herself to eat. It does not help that she has stomatitis that we are treating with Bilson solution. Greater than 30 minutes was spent coordinating discharge - ALLERGIES Allergies/Adverse Reactions: Allergies Allergy/AdvReac Type Severity Reaction Status Date / Time adhesive Allergy Unknown Verified 12/23/21 18:06 anastrozole Allergy Unknown Verified 12/23/21 18:06 hydroxyzine Allergy Itching Verified 12/23/21 18:06 lorazepam Allergy Emesis Verified 12/23/21 18:06 meclizine Allergy Emesis Verified 12/23/21 18:06 silver Allergy Unknown Verified 12/23/21 18:06 [From Tegaderm AG Mesh] codeine AdvReac Nausea Verified 12/23/21 18:06 gabapentin AdvReac Dizziness Verified 12/23/21 18:06 - MEDICATIONS Home Medications: Ambulatory Orders Medication Instructions Recorded Confirmed Sertraline HCl 150 mg PO DAILY 06/27/18 12/24/21 metFORMIN [Glucophage] 1,000 mg PO BIDWM 06/27/18 12/24/21 Cholecalciferol (Vitamin D3) 2,000 unit PO DAILY 05/10/19 12/24/21 [Vitamin D3] Multivitamin [Multivitamins] 1 tab PO DAILY 05/10/19 12/24/21 Vitamin B Complex/Folic Acid 1 tab PO DAILY 05/10/19 12/24/21 [Vitamin B Complex Tablet] Celecoxib 200 mg PO DAILY 10/16/19 12/24/21 Levothyroxine Sodium [Levoxyl] 25 mcg PO QDAC 04/16/21 12/24/21 Rosuvastatin Calcium [Crestor] 20 mg PO DAILY 04/16/21 12/24/21 Irbesartan [Avapro] 150 mg PO DAILY 10/14/21 12/24/21 Dulaglutide [Trulicity] 0.75 mg SQ UD 11/10/21 12/24/21 Prochlorperazine Maleate 10 mg PO Q6HR PRN 12/22/21 12/24/21 [Compazine] Loperamide [Imodium] 2 mg PO ONCE PRN MDD 8 CAPS (16 MG) 12/24/21 12/24/21 Magic Mouthwash 5 ml PO RTQ4H 12/24/21 12/24/21 Metoprolol Tartrate [Lopressor] 50 mg PO BID 12/24/21 12/24/21 Ondansetron [Ondansetron Odt] 8 mg PO Q8H PRN 12/24/21 12/24/21 dexAMETHasone [Decadron] 8 mg PO BIDWM 12/24/21 12/24/21 Ciprofloxacin [Cipro] 500 mg PO BID #16 tablet 12/26/21 Magic Mouthwash 5 ml PO Q4H #120 ml 12/26/21 Potassium Chloride 10 meq PO DAILY #30 12/26/21 - LABS Result Diagrams: 12/26/21 04:57 12/26/21 04:57 - SEPSIS Current Stage of Sepsis: Resolved Possible source of Sepsis: Genitourinary Sepsis Criteria: Recorded Temperature greater than 38.3C or Less than 36C (at home prior to admission ), WBC count greater than 12,000 or less than 4000"
[2021-12-26] MEDS: SERTRALINE 50 MG TABLET PO SCH (08:36)
[2021-12-26] MEDS: CIPROFLOXACIN 250 MG TABLET PO SCH (08:37)
[2021-12-26] MEDS: POTASSIUM CHLORIDE 20 MEQ TABLET PO SCH (08:37)
[2021-12-26] MEDS: ZINC SULFATE 220 MG CAPSULE PO SCH (08:37)
== END 2021-12-26 09:50 | disposition home or self-care (01) | DRG 872 ==
LOC: ED 17:51 → MS2 21:43
PROVIDERS: ADMIT Student in an Organized Health Care Education/Training Program; ATTEND Specialist
DX: A41.9 Sepsis, unspecified organism (principal); N39.0 Urinary tract infection, site not specified; C78.7 Secondary malignant neoplasm of liver and intrahepatic bile duct; B96.20 Unspecified Escherichia coli [E. coli] as the cause of diseases classified elsewhere; B96.4 Proteus (mirabilis) (morganii) as the cause of diseases classified elsewhere; R11.2 Nausea with vomiting, unspecified; E11.21 Type 2 diabetes mellitus with diabetic nephropathy; N30.00 Acute cystitis without hematuria; E86.0 Dehydration; R07.9 Chest pain, unspecified; Z20.822 Contact with and (suspected) exposure to COVID-19; I10 Essential (primary) hypertension; K12.1 Other forms of stomatitis; K52.1 Toxic gastroenteritis and colitis; C50.919 Malignant neoplasm of unspecified site of unspecified female breast; E87.6 Hypokalemia; E78.00 Pure hypercholesterolemia, unspecified; E11.51 Type 2 diabetes mellitus with diabetic peripheral angiopathy without gangrene; G47.30 Sleep apnea, unspecified; E11.42 Type 2 diabetes mellitus with diabetic polyneuropathy; K21.9 Gastro-esophageal reflux disease without esophagitis; H54.7 Unspecified visual loss; F41.9 Anxiety disorder, unspecified; D70.1 Agranulocytosis secondary to cancer chemotherapy; T45.1X5A Adverse effect of antineoplastic and immunosuppressive drugs, initial encounter; R50.81 Fever presenting with conditions classified elsewhere; R19.7 Diarrhea, unspecified; Z79.4 Long term (current) use of insulin; Z79.84 Long term (current) use of oral hypoglycemic drugs; Z79.890 Hormone replacement therapy; Z79.899 Other long term (current) drug therapy; Z82.49 Family history of ischemic heart disease and other diseases of the circulatory system; Z83.3 Family history of diabetes mellitus
CPT/HCPCS: 36415; 71045; 74176; 80048; 80053; 81001; 83036; 83605; 85025; 87040; 87077; 87086; 87181; 87493; 96365; 96375; 99284; 99285; A9270; J3370; U0004

== ENCOUNTER 2022-04-13 10:23 | Outpatient (CLI) | payer MEDICARE, MEDICAID ==
[2022-04-13 11:43] LABS: ESTIMATED AVERAGE GLUCOSE 146 mg/dL (70-100); HEMOGLOBIN A1c% 6.7 % (4.27-6.07)
== END 2022-04-13 10:24 | disposition home or self-care (01) ==
LOC: LAB 10:23
PROVIDERS: ATTEND Internal Medicine
DX: E11.42 Type 2 diabetes mellitus with diabetic polyneuropathy (principal)
CPT/HCPCS: 36415; 83036

== ENCOUNTER 2022-05-25 14:12 | Outpatient (CLI) | payer MEDICARE, MEDICAID | END 2022-05-25 23:59 | disposition critical access hospital (66) | LOC: EMS 14:12 | DX: M25.562 Pain in left knee (principal); M54.50 Low back pain, unspecified; M79.645 Pain in left finger(s); W01.0XXA Fall on same level from slipping, tripping and stumbling without subsequent striking against object, initial encounter; Y93.89 Activity, other specified; Y92.512 Supermarket, store or market as the place of occurrence of the external cause | CPT/HCPCS: A0425; A0429 ==

== ENCOUNTER 2022-05-25 14:29 | Emergency (ER) | payer MEDICARE, MEDICAID ==
--- NOTE | 2022-05-25 14:44 | ED Physician Documentation ---
PD HPI Fall - Stated complaint Stated Complaint: GLF - Chief complaint Chief Complaint: Trauma Ext - History obtained from History obtained from: Patient - History of Present Illness Mechanism of injury: Tripped (She was in the thrift store and tripped over part of the shelving base that was sticking out. This caused her to fall forward onto her left knee and hand with pain predominantly in the knee but also jammed the thumb. Has some pain in the low back as well. Did not strike her head but has mild MORALES.) Fall distance: Standing position Where injury occurred: Other (thrift store) Timing - onset: Today Contributing factors: Anticoagulated Review of Systems Skin: denies: Abrasion (s), Laceration (s) Musculoskeletal: reports: Back pain (lumbar area, which is not usual for her, has developed since the fall.). denies: Neck pain Neurologic: reports: Headache (mild). 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(s), Breast cancer : None HEENT: Chronic vision loss, Chronic sinusitis Psych: Anxiety Musculoskeletal: Osteoarthritis Derm: None, Other - Past Surgical History Past Surgical History: Yes Ortho: Hip replacement, Spine surgery /VEHICLE SALES PROFESSIONAL: Tubal ligation, Other - Present Medications Home Medications: Ambulatory Orders Medication Instructions Recorded Confirmed Sertraline HCl 150 mg PO DAILY 06/27/18 05/25/22 metFORMIN [Glucophage] 500 mg PO BIDWM 06/27/18 05/25/22 Cholecalciferol (Vitamin D3) 2,000 unit PO DAILY 05/10/19 05/18/22 [Vitamin D3] Multivitamin [Multivitamins] 1 tab PO DAILY 05/10/19 05/25/22 Vitamin B Complex/Folic Acid 1 tab PO DAILY 05/10/19 05/18/22 [Vitamin B Complex Tablet] Levothyroxine Sodium [Levoxyl] 25 mcg PO QDAC 04/16/21 05/25/22 Rosuvastatin Calcium [Crestor] 20 mg PO DAILY 04/16/21 05/25/22 Dulaglutide [Trulicity] 0.75 mg SQ UD 11/10/21 05/25/22 Prochlorperazine Maleate 10 mg PO Q6HR PRN 12/22/21 05/18/22 [Compazine] Loperamide [Imodium] 2 mg PO ONCE PRN MDD 8 CAPS (16 MG) 12/24/21 05/18/22 Magic Mouthwash 5 ml PO RTQ4H 12/24/21 05/18/22 Metoprolol Tartrate [Lopressor] 50 mg PO BID 12/24/21 05/25/22 Apixaban [Eliquis] 2.5 mg PO BID 01/05/22 05/25/22 Lidocaine/Prilocain 2.5% Cream TOP PRN 01/05/22 [Emla 2.5% Cream] Celecoxib [CeleBREX] 100 mg PO BID 03/09/22 05/18/22 Clobetasol 0.05% Oint [Temovate 1 applic TOP BID PRN 03/23/22 05/18/22 0.05% Oint] busPIRone [Buspar] 15 mg PO DAILY 04/20/22 05/25/22 Pregabalin [Lyrica] 150 mg PO DAILY 05/18/22 05/25/22 - Allergies Allergies/Adverse Reactions: Allergies Allergy/AdvReac Type Severity Reaction Status Date / Time adhesive Allergy Unknown Verified 05/25/22 14:38 anastrozole Allergy Unknown Verified 05/25/22 14:38 hydroxyzine Allergy Itching Verified 05/25/22 14:38 lorazepam Allergy Emesis Verified 05/25/22 14:38 meclizine Allergy Emesis Verified 05/25/22 14:38 silver Allergy Unknown Verified 05/25/22 14:38 [From Tegaderm AG Mesh] codeine AdvReac Nausea Verified 05/25/22 14:38 gabapentin AdvReac Dizziness Verified 05/25/22 14:38 - Social History Does the pt smoke?: No Smoking Status: Never smoker Does the pt drink ETOH?: No Does the pt have substance abuse?: No - Immunizations Immunizations are current?: Yes - POLST Patient has POLST: No POLST Status: Full Code PD ED PE NORMAL - Vitals Vital signs reviewed: Yes - General General: Alert and oriented X 3, Well developed/nourished - HEENT HEENT: Atraumatic - Neck Neck: Supple, no meningeal sign (nor pain on rOM. ), No bony TTP, No adenopathy - Cardiac Cardiac: RRR, No murmur - Respiratory Respiratory: No respiratory distress, Clear bilaterally - Abdomen Abdomen: Soft, Non tender - Back Back: Other (tender in the lumbar paraspinal muscles and some to percussion in mid lumbar area. ) - Derm Derm: Normal color, Warm and dry - Extremities Extremities: Other (left knee tender anteriorly with mild anterior effusion, no general joint effusion. no gross laxity to stress testing. pain with palpation on patellar area. left thumb with tender, swelling and mild bruising just proximal to nailbed dorsally. ROm at the iP seems okay but guarded due to pain. ) - Neuro Neuro: Alert and oriented X 3, No motor deficit, Normal speech Results - Vitals Vitals: Vital Signs - 24 hr 05/25/22 05/25/22 05/25/22 14:38 15:01 16:51 Temperature 37.3 C Heart Rate 95 67 61 Respiratory 16 17 12 Rate Blood Pressure 132/70 H 132/70 H 150/85 H O2 Saturation 96 95 97 05/25/22 18:03 Temperature Heart Rate 73 Respiratory 18 Rate Blood Pressure 130/52 L O2 Saturation 95 Oxygen O2 Source Room air - Rads (name of study) finger xray Radiology: Prelim report reviewed, EMP read indepedently (fracture distal phalanx of thumb, extends to joint. ), See rad report left knee Radiology: Prelim report reviewed, EMP read indepedently (no fracture), See rad report head cT Radiology: Prelim report reviewed (no acute ICH nor acute findings), See rad report lumbar CT Radiology: Prelim report reviewed (significant arthritic and disc disease at most every level. No acute fractures. ), EMP read indepedently, See rad report PD Medical Decision Making - ED course Complexity details: considered differential, d/w patient Social Determinants of Health: she is usually ambulatory but has knee pain now. she states she has walker and crutches at home, so did not need to give any here. can support the knee with hinged knee brace at 0-30 range. this should help knee. no indication of ligament tears nor meniscal at this time. thumb splint provided to aid in domfort of it. Drug Therapy Requiring Monitoring for Toxicity: given iM med for pain here that did provide moderately good improvement per gary ent. Will be assisted to get up and tech will place knee brace for her. Departure - Departure Disposition: 01 Home, Self Care Clinical Impression: Fall from slip, trip, or stumble, Low back strain, Fracture of distal phalanx of thumb, Contusion of left knee, Anticoagulant long-term use Condition: Stable Record reviewed to determine appropriate education?: Yes Instructions: ED Fx Finger Closed, ED Sprain Knee Follow-Up: Jah Marie MD [Primary Care Provider] - Comments: Your x-ray of the thumb shows a fracture at the distal end phalanx. You can use a finger splint to protect the area so it is less tender but otherwise just decreased use annual improve as the swelling goes down but take about 4 weeks or so for it to become nontender with touching and use. The x-ray of your knee does not show any fractures. However it is quite painful so 1 would presume you have at least some bruising in the knee and consideration for some of the nonbony structures being injured such as the ligaments or cartilage. You can use a knee brace to help support this to decrease the amount of movement but otherwise I would anticipate time for it to heal over a week or 2. Your low back shows arthritic changes but no obvious fractures. I would also anticipate this improving over the next several days to week or so. We did do a CT of your head since you are on a blood thinner and did fall. No signs of bleeding or swelling acutely. Continue with your medications at home. I would suggest Tylenol 500 mg 4 times daily regularly over the next 1 to 2 weeks to help with pains. To that add ibuprofen or naproxen if needed. He can also add the pain medicines that you have at home as needed. Progress activity as tolerated. Use your walker or crutches at home as needed for taking some of the weight off the left leg/knee. Recheck if not improved well over the next several days to week. Discharge Date/Time: 05/25/22 19:17
[2022-05-25] MEDS ORDERED: HYDROmorphone 0.5 MG/0.5 ML SYRINGE IM STA (15:13)
[2022-05-25] MEDS ORDERED: KETOROLAC 30 MG/ML VIAL IM STA (15:13)
--- OUTSIDE RECORDS SUMMARY | 2022-05-25 15:46 | EXTERNAL MEDICAL SUMMARY RPT | Continuity of Care Document ---
:1955 Author Organization [facility] [address] [place] [address] Phone Care Team Providers Name Role Phone Jah Jimenez Unavailable Unavailable Allergies No information. Encounters No information. Functional Status No information. Immunizations No information. Medications date description facility 2022-05-03 00:00 [facility] 2022-05-03 00:00 [facility] Problems date description facility 2022-04-19 13:40 Unilateral primary osteoarthritis, [facility] knee 2022-04-19 13:51 Unilateral primary osteoarthritis, [facility] knee Procedures date description facility 2022-04-19 00:00 XR knee LT [address] [place] [address] 2022-04-19 00:00 XR knee RT [address] [place] [address] Results/Labs test date author facility value unit interpret ation Result panel 1 (unknown) (no (unknown) (unknown) (no value) (units (unk nown) date) unknown) (unknown) (no (unknown) (unknown) 04/19/22 (units (unkno wn) date) unknown) (unknown) (no (unknown) (unknown) 01/02/2019 exam. (units (unknown) date) unknown) (unknown) (no (unknown) (unknown) [address] [place] [address] (units (unknown) date) unknown) (unknown) (no (unknown) (unknown) [id number] (units (unkno wn) date) unknown) (unknown) (no (unknown) (unknown) Accession Number: (units (unknown) date) [id number] unknown) (unknown) (no (unknown) (unknown) Accession Number: (units (unknown) date) [id number] unknown) (unknown) (no (unknown) (unknown) Age/Sex: 66 / F (units (unknown) date) Date of Service: unknown) (unknown) (no (unknown) (unknown) [place], [place] (units ( unknown) date) [id number] unknown) (unknown) (no (unknown) (unknown) Approved by: Javad (units (unknown) date) Ho Kelly on unknown) 04/19/2022 at 20:28 (unknown) (no (unknown) (unknown) Approved by: Javad (units (unknown) date) Ho Kelly on unknown) 04/19/2022 at 20:30 (unknown) (no (unknown) (unknown) COMPARISON: (units (un known) date) 01/02/2019 unknown) (unknown) (no (unknown) (unknown) : 1955 (units (unknown) date) Acct:[id number] unknown) (unknown) (no (unknown) (unknown) Dictated by: Javad (units (unknown) date) Ho Kelly on unknown) 04/19/2022 at 20:27 (unknown) (no (unknown) (unknown) Dictated by: Javad (units (unknown) date) Ho Kelly on unknown) 04/19/2022 at 20:29 (unknown) (no (unknown) (unknown) FINDINGS: (units (unkn own) date) unknown) (unknown) (no (unknown) (unknown) Femorotibial (units (u nknown) date) unknown) (unknown) (no (unknown) (unknown) IMPRESSION: (units (un known) date) Moderate unknown) tricompartmental osteoarthritis in the night knee, (unknown) (no (unknown) (unknown) IMPRESSION: (units (un known) date) Overall severe left unknown) knee osteoarthritis, progressed since (unknown) (no (unknown) (unknown) INDICATIONS: Knee (units (unknown) date) DJD progression unknown) (unknown) (no (unknown) (unknown) [facility] (units (unknown) date) unknown) (unknown) (no (unknown) (unknown) Loc: RAD (units (unkno wn) date) unknown) (unknown) (no (unknown) (unknown) Moderate right (units (unknown) date) knee joint unknown) effusion. Tricompartmental osteoarthritic changes in (unknown) (no (unknown) (unknown) Ordering Provider: (units (unknown) date) José Miguel Larry D.O. unknown) (unknown) (no (unknown) (unknown) PROCEDURE: XR KNEE (units (unknown) date) LT 3V unknown) (unknown) (no (unknown) (unknown) PROCEDURE: XR KNEE (units (unknown) date) RT 3V unknown) (unknown) (no (unknown) (unknown) Patient: (units (unkno wn) date) Kristie Lantigua MR#: unknown) M000 (unknown) (no (unknown) (unknown) Procedure: XR knee (units (unknown) date) LT 3V unknown) (unknown) (no (unknown) (unknown) Procedure: XR knee (units (unknown) date) RT 3V unknown) (unknown) (no (unknown) (unknown) Signed (units (unkno wn) date) unknown) (unknown) (no (unknown) (unknown) TECHNIQUE: 3 views (units (unknown) date) of the knee were unknown) acquired. (unknown) (no (unknown) (unknown) There is (units (unkno wn) date) progression of unknown) tricompartmental osteoarthritic changes in the left (unknown) (no (unknown) (unknown) XRay Report (units (un known) date) unknown) (unknown) (no (unknown) (unknown) as subchondral (units (unknown) date) sclerosis in the unknown) medial and lateral tibial plateaus. No (unknown) (no (unknown) (unknown) as well (units (unkno wn) date) unknown) (unknown) (no (unknown) (unknown) change in the (units ( unknown) date) unknown) (unknown) (no (unknown) (unknown) compartments also (units (unknown) date) demonstrate joint unknown) space narrowing with marginal osteophytosis (unknown) (no (unknown) (unknown) effusion. (units (unkn own) date) unknown) (unknown) (no (unknown) (unknown) femorotibial (units (u nknown) date) compartments. There unknown) is subchondral sclerosis and cystic changes (unknown) (no (unknown) (unknown) in the medial (units ( unknown) date) femorotibial unknown) compartment and in the patellofemoral compartment, (unknown) (no (unknown) (unknown) joint space (units (un known) date) narrowing and unknown) osteophytosis in the patellofemoral compartment. (unknown) (no (unknown) (unknown) knee have (units (unkn own) date) progressed since unknown) 01/02/2019 exam, moderate in the patellofemoral and (unknown) (no (unknown) (unknown) knee, severe (units (u nknown) date) unknown) (unknown) (no (unknown) (unknown) moderate in (units (un known) date) unknown) (unknown) (no (unknown) (unknown) narrowing (units (unkn own) date) unknown) (unknown) (no (unknown) (unknown) or blastic lesion. (units (unknown) date) unknown) (unknown) (no (unknown) (unknown) patellofemoral (units (unknown) date) compartment, as unknown) well as mild lateral patellar shift. No joint (unknown) (no (unknown) (unknown) progressed since (units (unknown) date) unknown) (unknown) (no (unknown) (unknown) suspicious lytic (units (unknown) date) unknown) (unknown) (no (unknown) (unknown) the lateral (units (un known) date) femorotibial unknown) compartment. Changes are characterized by joint space (unknown) (no (unknown) (unknown) the right (units (unkn own) date) unknown) (unknown) (no (unknown) (unknown) well as (units (unkno wn) date) unknown) (unknown) (no (unknown) (unknown) with bulky (units (unk nown) date) marginal unknown) osteophytes. There is subchondral sclerosis and cystic Result panel 2 (unknown) (no (unknown) (unknown) (no value) (units (unk nown) date) unknown) (unknown) (no (unknown) (unknown) 05/03/22 (units (unkno wn) date) unknown) (unknown) (no (unknown) (unknown) 05/03/22] (units (unkn own) date) unknown) (unknown) (no (unknown) (unknown) 10/10/19 [History (units (unknown) date) Confirmed unknown) 05/03/22] (unknown) (no (unknown) (unknown) [id number] (units (unkno wn) date) unknown) (unknown) (no (unknown) (unknown) Accompanied by: (units (unknown) date) Self / Same As unknown) Patient (unknown) (no (unknown) (unknown) Age/Sex: 66 / F (units (unknown) date) Date of Service: unknown) (unknown) (no (unknown) (unknown) Allergies (units (unkn own) date) unknown) (unknown) (no (unknown) (unknown) [place] (units ( unknown) date) [id number] unknown) (unknown) (no (unknown) (unknown) Attending Dr: (units ( unknown) date) José Miguel Larry D.O. unknown) (unknown) (no (unknown) (unknown) B-complex with (units (unknown) date) vitamin C 1 cap PO unknown) DAILY 10/10/19 [History Confirmed 05/03/22] (unknown) (no (unknown) (unknown) Confirmed (units (unkn own) date) 05/03/22] unknown) (unknown) (no (unknown) (unknown) : 1955 (units (unknown) date) Acct:[id number] unknown) (unknown) (no (unknown) (unknown) Dept at (units (unkno wn) date) . unknown) (unknown) (no (unknown) (unknown) Documented By: (units (unknown) date) José Miguel Larry D.O. unknown) 05/03/22 1356 (unknown) (no (unknown) (unknown) Draft (units (unkno wn) date) unknown) (unknown) (no (unknown) (unknown) Facet (units (unkno wn) date) arthropathy, unknown) lumbar (unknown) (no (unknown) (unknown) Gait instability (units (unknown) date) unknown) (unknown) (no (unknown) (unknown) History of total (units (unknown) date) right hip unknown) arthroplasty (unknown) (no (unknown) (unknown) Intake Clinical (units (unknown) date) Staff unknown) (unknown) (no (unknown) (unknown) Intake performed (units (unknown) date) by: Sandra Mandujano unknown) (unknown) (no (unknown) (unknown) Intake (units (unkno wn) date) unknown) (unknown) (no (unknown) (unknown) Loc: PAIN (units (unkn own) date) unknown) (unknown) (no (unknown) (unknown) Lumbosacral (units (un known) date) spondylosis with unknown) radiculopathy (unknown) (no (unknown) (unknown) Medical History (units (unknown) date) (Reviewed 02/17/22 unknown) @ 13:51 by José Miguel Larry DO) (unknown) (no (unknown) (unknown) Medications (units (un known) date) unknown) (unknown) (no (unknown) (unknown) PFSH (units (unkno wn) date) unknown) (unknown) (no (unknown) (unknown) Pain Visit (units (unk nown) date) unknown) (unknown) (no (unknown) (unknown) Patient: (units (unkno wn) date) Kristie Lantigua MR#: unknown) M0002 (unknown) (no (unknown) (unknown) QWEEK 02/17/22 (units (unknown) date) [History Confirmed unknown) 05/03/22] (unknown) (no (unknown) (unknown) Reason For Visit (units (unknown) date) unknown) (unknown) (no (unknown) (unknown) Sensory (units (unkno wn) date) peripheral unknown) neuropathy (unknown) (no (unknown) (unknown) Signed By: (units (unk nown) date) unknown) (unknown) (no (unknown) (unknown) Surgical History (units (unknown) date) (Reviewed 02/17/22 unknown) @ 13:51 by José Miguel Larry DO) (unknown) (no (unknown) (unknown) [facility] unknown) (unknown) (no (unknown) (unknown) This note may (units ( unknown) date) have been all or unknown) partially generated using voice recognition (unknown) (no (unknown) (unknown) Visit Reasons: (units (unknown) date) X-ray follow-up, unknown) BILATERAL KNEE'S (unknown) (no (unknown) (unknown) [History (units (unkno wn) date) Confirmed unknown) 05/03/22] (unknown) (no (unknown) (unknown) anastrozole (units (un known) date) Adverse Reaction unknown) (Severe, Verified 05/03/22 13:57) (unknown) (no (unknown) (unknown) apixaban 2.5 mg (units (unknown) date) tablet (Eliquis) unknown) 2.5 mg PO DAILY 02/17/22 [History Confirmed (unknown) (no (unknown) (unknown) ascorbic acid (units ( unknown) date) (vitamin C) 500 mg unknown) capsule mg PO 10/10/19 [History Confirmed (unknown) (no (unknown) (unknown) buspirone 10 mg (units (unknown) date) tablet 10 mg PO unknown) DAILY 05/03/22 [History Confirmed 05/03/22] (unknown) (no (unknown) (unknown) capsaicin-methyl (units (unknown) date) salicylate-menthol unknown) 0.025 %-30 %-10 % lotion (Dendracin) each (unknown) (no (unknown) (unknown) celecoxib 100 mg (units (unknown) date) capsule 100 mg PO unknown) DAILY 05/03/22 [History Confirmed 05/03/22] (unknown) (no (unknown) (unknown) cholecalciferol (units (unknown) date) (vitamin D3) 50 unknown) mcg (2,000 unit) capsule 50 mcg PO DAILY (unknown) (no (unknown) (unknown) codeine Adverse (units (unknown) date) Reaction (Severe, unknown) Verified 05/03/22 13:57) (unknown) (no (unknown) (unknown) diphenoxylate-atro (units (unknown) date) pine 2.5 mg-0.025 unknown) mg tablet 1 tab PO BEDTIME 05/03/22 [History (unknown) (no (unknown) (unknown) dizziness (units (unkn own) date) unknown) (unknown) (no (unknown) (unknown) dizziness, SOB, (units (unknown) date) Headache unknown) (unknown) (no (unknown) (unknown) doxepin 25 mg (units ( unknown) date) capsule 25 mg PO unknown) BEDTIME 05/03/22 [History Confirmed 05/03/22] (unknown) (no (unknown) (unknown) dulaglutide 0.75 (units (unknown) date) mg/0.5 mL unknown) subcutaneous pen injector (Trulicity) 0.75 mg SUBCUT (unknown) (no (unknown) (unknown) furosemide [From (units (unknown) date) Lasix] Adverse unknown) Reaction (Severe, Verified 05/03/22 13:57) (unknown) (no (unknown) (unknown) gabapentin (units (unk nown) date) Adverse Reaction unknown) (Severe, Verified 05/03/22 13:57) (unknown) (no (unknown) (unknown) have occurred. If (units (unknown) date) there are any unknown) questions, please contact the Medical Records (unknown) (no (unknown) (unknown) hydromorphone 2 (units (unknown) date) mg tablet 2 mg PO unknown) Q4-6H PRN 02/17/22 [History Confirmed (unknown) (no (unknown) (unknown) hydroxyzine (units (un known) date) Allergy (Verified unknown) 05/03/22 13:57) (unknown) (no (unknown) (unknown) levothyroxine 25 (units (unknown) date) mcg tablet 25 mcg unknown) PO DAILY 02/17/22 [History Confirmed (unknown) (no (unknown) (unknown) lidocaine-priloca (units (unknown) date) ine 2.5 %-2.5 % unknown) topical cream 1 applic topical ONCE 02/17/22 (unknown) (no (unknown) (unknown) lorazepam Allergy (units (unknown) date) (Verified 05/03/22 unknown) 13:57) (unknown) (no (unknown) (unknown) may occur. (units (unk nown) date) Occasional unknown) wrong-word or 'sound-alike' substitutions may have (unknown) (no (unknown) (unknown) meclizine Allergy (units (unknown) date) (Verified 05/03/22 unknown) 13:57) (unknown) (no (unknown) (unknown) metformin 1,000 (units (unknown) date) mg tablet 1,000 mg unknown) PO DAILY 05/03/22 [History Confirmed (unknown) (no (unknown) (unknown) metoprolol (units (unk nown) date) tartrate 50 mg unknown) tablet 50 mg PO BID 10/10/19 [History Confirmed (unknown) (no (unknown) (unknown) multivitamin 1 (units (unknown) date) tab PO DAILY unknown) 10/10/19 [History Confirmed 05/03/22] (unknown) (no (unknown) (unknown) nausea and rash (units (unknown) date) unknown) (unknown) (no (unknown) (unknown) nausea (units (unkno wn) date) unknown) (unknown) (no (unknown) (unknown) occurred due to (units (unknown) date) the inherent unknown) limitations of voice recognition software. Please (unknown) (no (unknown) (unknown) pregabalin 150 mg (units (unknown) date) capsule 150 mg PO unknown) TID 02/17/22 [History Confirmed 05/03/22] (unknown) (no (unknown) (unknown) rash (units (unkno wn) date) unknown) (unknown) (no (unknown) (unknown) rash/redness (units (u nknown) date) unknown) (unknown) (no (unknown) (unknown) read the note (units ( unknown) date) carefully and unknown) recognize, using context, where these substitutions (unknown) (no (unknown) (unknown) rosuvastatin 20 (units (unknown) date) mg tablet 20 mg PO unknown) DAILY 02/17/22 [History Confirmed 05/03/22] (unknown) (no (unknown) (unknown) sertraline 100 mg (units (unknown) date) tablet 150 mg PO unknown) DAILY 10/10/19 [History Confirmed 05/03/22] (unknown) (no (unknown) (unknown) silver Adverse (units (unknown) date) Reaction (Severe, unknown) Verified 05/03/22 13:57) (unknown) (no (unknown) (unknown) sleepy (units (unkno wn) date) unknown) (unknown) (no (unknown) (unknown) software. 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 (unknown) (no (unknown) (unknown) tagaderm bandage (units (unknown) date) Allergy (Uncoded unknown) 05/03/22 13:57) (unknown) (no (unknown) (unknown) topical 10/10/19 (units (unknown) date) [History Confirmed unknown) 05/03/22] Result panel 3 (unknown) (no (unknown) (unknown) (no value) (units (unk nown) date) unknown) (unknown) (no (unknown) (unknown) 05/03/22 (units (unkno wn) date) unknown) (unknown) (no (unknown) (unknown) 05/03/22] (units (unkn own) date) unknown) (unknown) (no (unknown) (unknown) 10/10/19 [History (units (unknown) date) Confirmed unknown) 05/03/22] (unknown) (no (unknown) (unknown) 14:07 (units (unkno wn) date) unknown) (unknown) (no (unknown) (unknown) [id number] (units (unkno wn) date) unknown) (unknown) (no (unknown) (unknown) Accompanied by: (units (unknown) date) Self / Same As unknown) Patient (unknown) (no (unknown) (unknown) Age/Sex: 66 / F (units (unknown) date) Date of Service: unknown) (unknown) (no (unknown) (unknown) Allergies (units (unkn own) date) unknown) (unknown) (no (unknown) (unknown) [place] (units ( unknown) date) [id number] unknown) (unknown) (no (unknown) (unknown) Attending Dr: (units ( unknown) date) José Miguel Larry D.O. unknown) (unknown) (no (unknown) (unknown) B-complex with (units (unknown) date) vitamin C 1 cap PO unknown) DAILY 10/10/19 [History Confirmed 05/03/22] (unknown) (no (unknown) (unknown) BMI 39.5 (units (unkno wn) date) unknown) (unknown) (no (unknown) (unknown) BP 128/80 (units (unkn own) date) unknown) (unknown) (no (unknown) (unknown) Blood Pressure (units (unknown) date) Location Rt unknown) brachial (unknown) (no (unknown) (unknown) Confirmed (units (unkn own) date) 05/03/22] unknown) (unknown) (no (unknown) (unknown) : 1955 (units (unknown) date) Acct:[id number] unknown) (unknown) (no (unknown) (unknown) Dept at (units (unkno wn) date) . unknown) (unknown) (no (unknown) (unknown) Documented By: (units (unknown) date) José Miguel Larry D.O. unknown) 05/03/22 1356 (unknown) (no (unknown) (unknown) Draft (units (unkno wn) date) unknown) (unknown) (no (unknown) (unknown) Facet (units (unkno wn) date) arthropathy, unknown) lumbar (unknown) (no (unknown) (unknown) Gait instability (units (unknown) date) unknown) (unknown) (no (unknown) (unknown) HERE FOR (units (unkno wn) date) BILATERAL KNEE'S unknown) (unknown) (no (unknown) (unknown) Height 5 ft 6 in (units (unknown) date) unknown) (unknown) (no (unknown) (unknown) History of total (units (unknown) date) right hip unknown) arthroplasty (unknown) (no (unknown) (unknown) Intake Clinical (units (unknown) date) Staff unknown) (unknown) (no (unknown) (unknown) Intake Note: (units (u nknown) date) unknown) (unknown) (no (unknown) (unknown) Intake performed (units (unknown) date) by: Sandra Mandujano unknown) (unknown) (no (unknown) (unknown) Intake (units (unkno wn) date) unknown) (unknown) (no (unknown) (unknown) Is patient in (units ( unknown) date) pain?: Yes (HERE unknown) FOR BILATERAL KNEE'S) Pain scale (1-10): 4 (unknown) (no (unknown) (unknown) Loc: PAIN (units (unkn own) date) unknown) (unknown) (no (unknown) (unknown) Lumbosacral (units (un known) date) spondylosis with unknown) radiculopathy (unknown) (no (unknown) (unknown) Medical History (units (unknown) date) (Reviewed 02/17/22 unknown) @ 13:51 by José Miguel Larry DO) (unknown) (no (unknown) (unknown) Medications (units (un known) date) unknown) (unknown) (no (unknown) (unknown) Oxygen Delivery (units (unknown) date) Method room air unknown) (unknown) (no (unknown) (unknown) PFSH (units (unkno wn) date) unknown) (unknown) (no (unknown) (unknown) Pain Scale (units (unk nown) date) unknown) (unknown) (no (unknown) (unknown) Pain Visit (units (unk nown) date) unknown) (unknown) (no (unknown) (unknown) Patient: (units (unkno wn) date) Kristie Lantigua MR#: unknown) M0002 (unknown) (no (unknown) (unknown) Position Sitting (units (unknown) date) unknown) (unknown) (no (unknown) (unknown) Pulse 63 (units (unkno wn) date) unknown) (unknown) (no (unknown) (unknown) Pulse Oximetry (units (unknown) date) (%) 97 unknown) (unknown) (no (unknown) (unknown) Pulse Source (units (u nknown) date) Monitor unknown) (unknown) (no (unknown) (unknown) QWEEK 02/17/22 (units (unknown) date) [History Confirmed unknown) 05/03/22] (unknown) (no (unknown) (unknown) Reason For Visit (units (unknown) date) unknown) (unknown) (no (unknown) (unknown) Sensory (units (unkno wn) date) peripheral unknown) neuropathy (unknown) (no (unknown) (unknown) Signed By: (units (unk nown) date) unknown) (unknown) (no (unknown) (unknown) Smoking Status: (units (unknown) date) Never smoker unknown) (unknown) (no (unknown) (unknown) Surgical History (units (unknown) date) (Reviewed 02/17/22 unknown) @ 13:51 by José Miguel Larry DO) (unknown) (no (unknown) (unknown) Temp 98 F (units (unkn own) date) unknown) (unknown) (no (unknown) (unknown) Temp Source (units (un known) date) Temporal Artery unknown) Scan (unknown) (no (unknown) (unknown) [facility] unknown) (unknown) (no (unknown) (unknown) This note may (units ( unknown) date) have been all or unknown) partially generated using voice recognition (unknown) (no (unknown) (unknown) Tobacco + (units (unkn own) date) Substance Use unknown) (unknown) (no (unknown) (unknown) Tobacco Status (units (unknown) date) unknown) (unknown) (no (unknown) (unknown) Visit Reasons: (units (unknown) date) BILATERAL KNEE'S, unknown) X-ray follow-up (unknown) (no (unknown) (unknown) Vitals (units (unkno wn) date) unknown) (unknown) (no (unknown) (unknown) Weight 245 lb (units ( unknown) date) unknown) (unknown) (no (unknown) (unknown) [History (units (unkno wn) date) Confirmed unknown) 05/03/22] (unknown) (no (unknown) (unknown) anastrozole (units (un known) date) Adverse Reaction unknown) (Severe, Verified 05/03/22 14:07) (unknown) (no (unknown) (unknown) apixaban 2.5 mg (units (unknown) date) tablet (Eliquis) unknown) 2.5 mg PO DAILY 02/17/22 [History Confirmed (unknown) (no (unknown) (unknown) ascorbic acid (units ( unknown) date) (vitamin C) 500 mg unknown) capsule mg PO 10/10/19 [History Confirmed (unknown) (no (unknown) (unknown) buspirone 10 mg (units (unknown) date) tablet 10 mg PO unknown) DAILY 05/03/22 [History Confirmed 05/03/22] (unknown) (no (unknown) (unknown) capsaicin-methyl (units (unknown) date) salicylate-menthol unknown) 0.025 %-30 %-10 % lotion (Dendracin) each (unknown) (no (unknown) (unknown) celecoxib 100 mg (units (unknown) date) capsule 100 mg PO unknown) DAILY 05/03/22 [History Confirmed 05/03/22] (unknown) (no (unknown) (unknown) cholecalciferol (units (unknown) date) (vitamin D3) 50 unknown) mcg (2,000 unit) capsule 50 mcg PO DAILY (unknown) (no (unknown) (unknown) codeine Adverse (units (unknown) date) Reaction (Severe, unknown) Verified 05/03/22 14:07) (unknown) (no (unknown) (unknown) diphenoxylate-atro (units (unknown) date) pine 2.5 mg-0.025 unknown) mg tablet 1 tab PO BEDTIME 05/03/22 [History (unknown) (no (unknown) (unknown) dizziness (units (unkn own) date) unknown) (unknown) (no (unknown) (unknown) dizziness, SOB, (units (unknown) date) Headache unknown) (unknown) (no (unknown) (unknown) doxepin 25 mg (units ( unknown) date) capsule 25 mg PO unknown) BEDTIME 05/03/22 [History Confirmed 05/03/22] (unknown) (no (unknown) (unknown) dulaglutide 0.75 (units (unknown) date) mg/0.5 mL unknown) subcutaneous pen injector (Trulicity) 0.75 mg SUBCUT (unknown) (no (unknown) (unknown) furosemide [From (units (unknown) date) Lasix] Adverse unknown) Reaction (Severe, Verified 05/03/22 14:07) (unknown) (no (unknown) (unknown) gabapentin (units (unk nown) date) Adverse Reaction unknown) (Severe, Verified 05/03/22 14:07) (unknown) (no (unknown) (unknown) have occurred. If (units (unknown) date) there are any unknown) questions, please contact the Medical Records (unknown) (no (unknown) (unknown) hydromorphone 2 (units (unknown) date) mg tablet 2 mg PO unknown) Q4-6H PRN 02/17/22 [History Confirmed (unknown) (no (unknown) (unknown) hydroxyzine (units (un known) date) Allergy (Verified unknown) 05/03/22 14:07) (unknown) (no (unknown) (unknown) levothyroxine 25 (units (unknown) date) mcg tablet 25 mcg unknown) PO DAILY 02/17/22 [History Confirmed (unknown) (no (unknown) (unknown) lidocaine-priloca (units (unknown) date) ine 2.5 %-2.5 % unknown) topical cream 1 applic topical ONCE 02/17/22 (unknown) (no (unknown) (unknown) lorazepam Allergy (units (unknown) date) (Verified 05/03/22 unknown) 14:07) (unknown) (no (unknown) (unknown) may occur. (units (unk nown) date) Occasional unknown) wrong-word or 'sound-alike' substitutions may have (unknown) (no (unknown) (unknown) meclizine Allergy (units (unknown) date) (Verified 05/03/22 unknown) 14:07) (unknown) (no (unknown) (unknown) metformin 1,000 (units (unknown) date) mg tablet 1,000 mg unknown) PO DAILY 05/03/22 [History Confirmed (unknown) (no (unknown) (unknown) metoprolol (units (unk nown) date) tartrate 50 mg unknown) tablet 50 mg PO BID 10/10/19 [History Confirmed (unknown) (no (unknown) (unknown) multivitamin 1 (units (unknown) date) tab PO DAILY unknown) 10/10/19 [History Confirmed 05/03/22] (unknown) (no (unknown) (unknown) nausea and rash (units (unknown) date) unknown) (unknown) (no (unknown) (unknown) nausea (units (unkno wn) date) unknown) (unknown) (no (unknown) (unknown) occurred due to (units (unknown) date) the inherent unknown) limitations of voice recognition software. Please (unknown) (no (unknown) (unknown) pregabalin 150 mg (units (unknown) date) capsule 150 mg PO unknown) TID 02/17/22 [History Confirmed 05/03/22] (unknown) (no (unknown) (unknown) rash (units (unkno wn) date) unknown) (unknown) (no (unknown) (unknown) rash/redness (units (u nknown) date) unknown) (unknown) (no (unknown) (unknown) read the note (units ( unknown) date) carefully and unknown) recognize, using context, where these substitutions (unknown) (no (unknown) (unknown) rosuvastatin 20 (units (unknown) date) mg tablet 20 mg PO unknown) DAILY 02/17/22 [History Confirmed 05/03/22] (unknown) (no (unknown) (unknown) sertraline 100 mg (units (unknown) date) tablet 150 mg PO unknown) DAILY 10/10/19 [History Confirmed 05/03/22] (unknown) (no (unknown) (unknown) silver Adverse (units (unknown) date) Reaction (Severe, unknown) Verified 05/03/22 14:07) (unknown) (no (unknown) (unknown) sleepy (units (unkno wn) date) unknown) (unknown) (no (unknown) (unknown) software. 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 (unknown) (no (unknown) (unknown) tagaderm bandage (units (unknown) date) Allergy (Uncoded unknown) 05/03/22 14:07) (unknown) (no (unknown) (unknown) topical 10/10/19 (units (unknown) date) [History Confirmed unknown) 05/03/22] Result panel 4 (unknown) (no (unknown) (unknown) (no value) (units (unk nown) date) unknown) (unknown) (no (unknown) (unknown) - Unilateral (units (u nknown) date) primary unknown) osteoarthritis, unspecified knee (unknown) (no (unknown) (unknown) 05/03/22 (units (unkno wn) date) unknown) (unknown) (no (unknown) (unknown) 10/10/19 [History (units (unknown) date) Confirmed 02/17/22] unknown) (unknown) (no (unknown) (unknown) 1. Multilevel (units ( unknown) date) degenerative disc unknown) and facet disease. (unknown) (no (unknown) (unknown) 1. Tricompartmental (unit s (unknown) date) knee joint unknown) degeneration, most severe at the patellofemoral (unknown) (no (unknown) (unknown) 02/17/22] (units (unkn own) date) unknown) (unknown) (no (unknown) (unknown) 14:07 (units (unkno wn) date) unknown) (unknown) (no (unknown) (unknown) 2. (units (unkno wn) date) Chondrocalcinosis. unknown) Differential diagnosis include CPPD and (unknown) (no (unknown) (unknown) 2. No acute (units (un known) date) fracture. No osseous unknown) lesion. If symptoms and/or clinical suspicion (unknown) (no (unknown) (unknown) [id number] (units (unkno wn) date) unknown) (unknown) (no (unknown) (unknown) Accompanied by: (units (unknown) date) Self / Same As unknown) Patient (unknown) (no (unknown) (unknown) Age/Sex: 66 / F (units (unknown) date) Date of Service: unknown) (unknown) (no (unknown) (unknown) All other systems (units (unknown) date) reviewed and are unknown) unremarkable except as noted in HPI. (unknown) (no (unknown) (unknown) Allergies (units (unkn own) date) unknown) (unknown) (no (unknown) (unknown) [place] [id number] (unit s (unknown) date) unknown) (unknown) (no (unknown) (unknown) Approved by: Sunil (unit s (unknown) date) Ho Graf on unknown) 11/03/2019 at 9:51 (unknown) (no (unknown) (unknown) As oral consent, we (unit s (unknown) date) did review the risk unknown) to the above-stated procedure including (unknown) (no (unknown) (unknown) Assessment + Plan (units (unknown) date) unknown) (unknown) (no (unknown) (unknown) Attending Dr: (units ( unknown) date) José Miguel Larry D.O. unknown) (unknown) (no (unknown) (unknown) B-complex with (units (unknown) date) vitamin C 1 cap PO unknown) DAILY 10/10/19 [History Confirmed 02/17/22] (unknown) (no (unknown) (unknown) BMI 39.5 (units (unkno wn) date) unknown) (unknown) (no (unknown) (unknown) BP 128/80 (units (unkn own) date) unknown) (unknown) (no (unknown) (unknown) Blood Pressure (units (unknown) date) Location Rt brachial unknown) (unknown) (no (unknown) (unknown) Bones: 5 (units (unkno wn) date) nonrib-bearing unknown) vertebrae are present. There is mild grade 1 (unknown) (no (unknown) (unknown) Bones: No fractures (unit s (unknown) date) or dislocations. No unknown) suspicious bony lesions. Mild lateral (unknown) (no (unknown) (unknown) Bones: No fractures (unit s (unknown) date) or dislocations. No unknown) suspicious bony lesions. There is (unknown) (no (unknown) (unknown) COMPARISON: None. (units (unknown) date) unknown) (unknown) (no (unknown) (unknown) CT, MRI, or (units (un known) date) unknown) (unknown) (no (unknown) (unknown) Chief Complaint (units (unknown) date) unknown) (unknown) (no (unknown) (unknown) Chief Complaint: (units (unknown) date) Bilateral knee DJD unknown) (unknown) (no (unknown) (unknown) Covid19 (units (unkno wn) date) restrictions without unknown) difficulty without cough fever fatigue at this (unknown) (no (unknown) (unknown) : 1955 (units (unknown) date) Acct:[id number] unknown) (unknown) (no (unknown) (unknown) Denies recent (units ( unknown) date) trauma, fever or unknown) weight loss of unknown origin, immunocompromise (unknown) (no (unknown) (unknown) Dept at (units (unkno wn) date) . unknown) (unknown) (no (unknown) (unknown) Details: (units (unkno wn) date) unknown) (unknown) (no (unknown) (unknown) Dictated by: Sunil (unit s (unknown) date) Ho Graf on unknown) 11/03/2019 at 9:50 (unknown) (no (unknown) (unknown) Documented By: (units (unknown) date) José Miguel Larry D.O. 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, breast CA, right hip TERI 06/2019 (unknown) (no (unknown) (unknown) Exam Narrative (units (unknown) date) unknown) (unknown) (no (unknown) (unknown) Exam Narrative: (units (unknown) date) unknown) (unknown) (no (unknown) (unknown) Exam (units (unkno wn) date) unknown) (unknown) (no (unknown) (unknown) Exp: 10/08/2024 (units (unknown) date) unknown) (unknown) (no (unknown) (unknown) FINDINGS: (units (unkn own) date) unknown) (unknown) (no (unknown) (unknown) Facet arthropathy, (units (unknown) date) lumbar unknown) (unknown) (no (unknown) (unknown) Gait instability (units (unknown) date) unknown) (unknown) (no (unknown) (unknown) Gait: (units (unkno wn) date) normalCoordination: unknown) normal (unknown) (no (unknown) (unknown) General Appearance: (unit s (unknown) date) well-nourished, well unknown) developed in no acute distress (unknown) (no (unknown) (unknown) HERE FOR BILATERAL (units (unknown) date) KNEE'S unknown) (unknown) (no (unknown) (unknown) HPI (units (unkno wn) date) unknown) (unknown) (no (unknown) (unknown) Height 5 ft 6 in (units (unknown) date) unknown) (unknown) (no (unknown) (unknown) History of total (units (unknown) date) right hip unknown) arthroplasty (unknown) (no (unknown) (unknown) IMPRESSION: (units (un known) date) Moderate to severe unknown) degenerative joint disease. (unknown) (no (unknown) (unknown) IMPRESSION: (units (un known) date) unknown) (unknown) (no (unknown) (unknown) INDICATIONS: LBP (units (unknown) date) with Right LE unknown) symptoms (unknown) (no (unknown) (unknown) Inspection / (units (u nknown) date) Palpation LE (R/L): unknown) non-tender bilaterally (unknown) (no (unknown) (unknown) Intake Clinical (units (unknown) date) Staff unknown) (unknown) (no (unknown) (unknown) Intake Note: (units (u nknown) date) unknown) (unknown) (no (unknown) (unknown) Intake performed (units (unknown) date) by: Sandra Mandujano unknown) (unknown) (no (unknown) (unknown) Intake (units (unkno wn) date) unknown) (unknown) (no (unknown) (unknown) Interventions/Proc. (unit s (unknown) date) unknown) (unknown) (no (unknown) (unknown) Interventions: (units (unknown) date) unknown) (unknown) (no (unknown) (unknown) Is patient in (units ( unknown) date) pain?: Yes (HERE FOR unknown) BILATERAL KNEE'S) Pain scale (1-10): 4 (unknown) (no (unknown) (unknown) Knee A/P Stability (units (unknown) date) (R/L): Ed unknown) (0+/0+); Posterior Drawer (0+/0+) (unknown) (no (unknown) (unknown) Knee Exam Bilateral (unit s (unknown) date) unknown) (unknown) (no (unknown) (unknown) Knee M/L Stability (units (unknown) date) (R/L): Varus unknown) (0+/0+); Valgus (0+/0+) (unknown) (no (unknown) (unknown) Knee ROM (R/L): (units (unknown) date) 0-130 / 0-130 unknown) (unknown) (no (unknown) (unknown) L5. Mild grade 1 (units (unknown) date) retrolisthesis of L1 unknown) on L2, L2 on L3, and L3 on L4. No (unknown) (no (unknown) (unknown) LE Skin: no rashes (units (unknown) date) or lesions unknown) bilaterally (unknown) (no (unknown) (unknown) Loc: PAIN (units (unkn own) date) unknown) (unknown) (no (unknown) (unknown) Lot: [id number] (units (unk nown) date) unknown) (unknown) (no (unknown) (unknown) Lumbosacral (units (un known) date) spondylosis with unknown) radiculopathy (unknown) (no (unknown) (unknown) MSK: System (units (un known) date) reviewed and no unknown) additional complaints, except as documented. (unknown) (no (unknown) (unknown) June of 2019 by (units (unknown) date) Dr. Teodoro barnett at unknown) [facility].? Additionally she (unknown) (no (unknown) (unknown) Medical History (units (unknown) date) (Reviewed 05/03/22 @ unknown) 14:28 by José Miguel Larry DO) (unknown) (no (unknown) (unknown) Medications (units (un known) date) unknown) (unknown) (no (unknown) (unknown) Medications: (units (u nknown) date) unknown) (unknown) (no (unknown) (unknown) Neuro: System (units ( unknown) date) reviewed and no unknown) additional complaints, except as documented. (unknown) (no (unknown) (unknown) New (units (unkno wn) date) unknown) (unknown) (no (unknown) (unknown) February 14, 2019. (units (unknown) date) But she continued unknown) with severe right hip pain secondary to (unknown) (no (unknown) (unknown) Objective Data (units (unknown) date) unknown) (unknown) (no (unknown) (unknown) Objective Data: (units (unknown) date) unknown) (unknown) (no (unknown) (unknown) Oblique images: No (units (unknown) date) pars defects. unknown) (unknown) (no (unknown) (unknown) Orders (units (unkno wn) date) unknown) (unknown) (no (unknown) (unknown) Orders: (units (unkno wn) date) unknown) (unknown) (no (unknown) (unknown) Orientation: (units (u nknown) date) oriented to person, unknown) place and time. Mood / Affect: calm (unknown) (no (unknown) (unknown) Oxygen Delivery (units (unknown) date) Method room air unknown) (unknown) (no (unknown) (unknown) PFSH (units (unkno wn) date) unknown) (unknown) (no (unknown) (unknown) PROCEDURE: XR (units ( unknown) date) LUMBAR SPINE MIN 4V unknown) (unknown) (no (unknown) (unknown) Pain Scale (units (unk nown) date) unknown) (unknown) (no (unknown) (unknown) Pain Visit (units (unk nown) date) unknown) (unknown) (no (unknown) (unknown) Patient: (units (unkno wn) date) Kristie Lantigua MR#: unknown) [id number] (unknown) (no (unknown) (unknown) [place], borderline (units (unknown) date) diabetes, right unknown) upper extremity DVT bacillic vein (unknown) (no (unknown) (unknown) Position Sitting (units (unknown) date) unknown) (unknown) (no (unknown) (unknown) [facility] (units (unknown) date) [facility].? Otherwise unknown) she reports feeling well maintain the (unknown) (no (unknown) (unknown) Pulse 63 (units (unkno wn) date) unknown) (unknown) (no (unknown) (unknown) Pulse Oximetry (%) (units (unknown) date) 97 unknown) (unknown) (no (unknown) (unknown) Pulse Source (units (u nknown) date) Monitor unknown) (unknown) (no (unknown) (unknown) QWEEK 02/17/22 (units (unknown) date) [History Confirmed unknown) 02/17/22] (unknown) (no (unknown) (unknown) ROS Narrative (units ( unknown) date) unknown) (unknown) (no (unknown) (unknown) ROS Narrative: (units (unknown) date) unknown) (unknown) (no (unknown) (unknown) ROS (units (unkno wn) date) unknown) (unknown) (no (unknown) (unknown) Reason For Visit (units (unknown) date) unknown) (unknown) (no (unknown) (unknown) Sensation: (units (unk nown) date) Subjective normal unknown) distal sensation bilaterally (unknown) (no (unknown) (unknown) Sensory peripheral (units (unknown) date) neuropathy unknown) (unknown) (no (unknown) (unknown) She additionally (units (unknown) date) reports progression unknown) of low back pain and right lower extremity (unknown) (no (unknown) (unknown) Signed By: (units (unk nown) date) unknown) (unknown) (no (unknown) (unknown) Laurel returns to (units (unknown) date) clinic today unknown) secondary do not multiple musculoskeletal (unknown) (no (unknown) (unknown) Smoking Status: (units (unknown) date) Never smoker unknown) (unknown) (no (unknown) (unknown) Soft tissues: No (units (unknown) date) joint effusion. No unknown) suspicious soft tissue calcifications. (unknown) (no (unknown) (unknown) Soft tissues: (units ( unknown) date) Overlying bowel gas unknown) pattern is normal. No suspicious soft tissue (unknown) (no (unknown) (unknown) Soft tissues: Trace (unit s (unknown) date) joint effusion. No unknown) suspicious soft tissue calcifications. (unknown) (no (unknown) (unknown) Strength LE: 5/5 (units (unknown) date) EHL, tibialis unknown) anterior, plantar flexion (unknown) (no (unknown) (unknown) Surgical History (units (unknown) date) (Reviewed 05/03/22 @ unknown) 14:28 by José Miguel Larry DO) (unknown) (no (unknown) (unknown) TECHNIQUE: 5 views (units (unknown) date) of the lumbar spine unknown) were acquired. (unknown) (no (unknown) (unknown) TERI with Dr. Boykin (units (unknown) date) at [facility].? She unknown) underwent bilateral Durolane injections on (unknown) (no (unknown) (unknown) Temp 98 F (units (unkn own) date) unknown) (unknown) (no (unknown) (unknown) Temp Source (units (un known) date) Temporal Artery Scan unknown) (unknown) (no (unknown) (unknown) [facility] (unit s (unknown) date) Management unknown) (unknown) (no (unknown) (unknown) The patient (units (un known) date) tolerated the unknown) procedure without signs or symptoms of complications (unknown) (no (unknown) (unknown) The right knee was (units (unknown) date) prepped in the unknown) superior anterior fashion with suprapatellar (unknown) (no (unknown) (unknown) This note may have (units (unknown) date) been all or unknown) partially generated using voice recognition (unknown) (no (unknown) (unknown) Tobacco + Substance (unit s (unknown) date) Use unknown) (unknown) (no (unknown) (unknown) Tobacco Status (units (unknown) date) unknown) (unknown) (no (unknown) (unknown) Vasculature: <2 (units (unknown) date) second capillary unknown) bilaterally (unknown) (no (unknown) (unknown) Visit Reasons: (units (unknown) date) BILATERAL KNEE'S, unknown) X-ray follow-up (unknown) (no (unknown) (unknown) Vitals (units (unkno wn) date) unknown) (unknown) (no (unknown) (unknown) Weight 245 lb (units ( unknown) date) unknown) (unknown) (no (unknown) (unknown) [History Confirmed (units (unknown) date) 02/17/22] unknown) (unknown) (no (unknown) (unknown) [History] (units (unkn own) date) unknown) (unknown) (no (unknown) (unknown) anastrozole Adverse (unit s (unknown) date) Reaction (Severe, unknown) Verified 05/03/22 14:07) (unknown) (no (unknown) (unknown) anterolisthesis of (units (unknown) date) L4 on unknown) (unknown) (no (unknown) (unknown) apixaban 2.5 mg (units (unknown) date) tablet (Eliquis) 2.5 unknown) mg PO DAILY 02/17/22 [History Confirmed (unknown) (no (unknown) (unknown) approach from a (units (unknown) date) lateral perspective. unknown) Ultrasound guidance was used to identify (unknown) (no (unknown) (unknown) ascorbic acid (units ( unknown) date) (vitamin C) 500 mg unknown) capsule mg PO 10/10/19 [History Confirmed (unknown) (no (unknown) (unknown) aspiration ampule (units (unknown) date) of Duralane was unknown) administered without incident. Attention was (unknown) (no (unknown) (unknown) bone scan) may be (units (unknown) date) helpful for further unknown) assessment. (unknown) (no (unknown) (unknown) buspirone 10 mg (units (unknown) date) tablet 10 mg PO unknown) DAILY 05/03/22 [History] (unknown) (no (unknown) (unknown) but not limited to (units (unknown) date) bleeding, infection, unknown) allergic reaction, nerve injury, stroke, (unknown) (no (unknown) (unknown) calcifications. (units (unknown) date) unknown) (unknown) (no (unknown) (unknown) capsaicin-methyl (units (unknown) date) salicylate-menthol unknown) 0.025 %-30 %-10 % lotion (Dendracin) each (unknown) (no (unknown) (unknown) celecoxib 100 mg PO (unit s (unknown) date) BID unknown) (unknown) (no (unknown) (unknown) celecoxib 100 mg (units (unknown) date) capsule 100 mg PO unknown) BID 05/03/22 [History Confirmed 05/03/22] (unknown) (no (unknown) (unknown) chemotherapy. (units ( unknown) date) unknown) (unknown) (no (unknown) (unknown) cholecalciferol (units (unknown) date) (vitamin D3) 50 mcg unknown) (2,000 unit) capsule 50 mcg PO DAILY (unknown) (no (unknown) (unknown) chondrocalcinosis. (units (unknown) date) unknown) (unknown) (no (unknown) (unknown) codeine Adverse (units (unknown) date) Reaction (Severe, unknown) Verified 05/03/22 14:07) (unknown) (no (unknown) (unknown) compartment and (units (unknown) date) unknown) (unknown) (no (unknown) (unknown) complaints.? She (units (unknown) date) was last seen unknown) secondary to bilateral knee DJD as well as right (unknown) (no (unknown) (unknown) compression (units (un known) date) fractures. No unknown) suspicious bony lesions. Mild multilevel endplate (unknown) (no (unknown) (unknown) developed a sensory (unit s (unknown) date) peripheral unknown) neuropathy as well secondary to the (unknown) (no (unknown) (unknown) diphenoxylate-atrop (unit s (unknown) date) ine 2.5 mg-0.025 mg unknown) tablet 1 tab PO BEDTIME 05/03/22 (unknown) (no (unknown) (unknown) dizziness (units (unkn own) date) unknown) (unknown) (no (unknown) (unknown) dizziness, SOB, (units (unknown) date) Headache unknown) (unknown) (no (unknown) (unknown) doxepin 25 mg (units ( unknown) date) capsule 25 mg PO unknown) BEDTIME 05/03/22 [History] (unknown) (no (unknown) (unknown) dulaglutide 0.75 (units (unknown) date) mg/0.5 mL unknown) subcutaneous pen injector (Trulicity) 0.75 mg SUBCUT (unknown) (no (unknown) (unknown) for (units (unkno wn) date) unknown) (unknown) (no (unknown) (unknown) formation and disc (units (unknown) date) space narrowing, unknown) worst at L1-L2 and L2-L3. Facet hypertrophy (unknown) (no (unknown) (unknown) furosemide [From (units (unknown) date) Lasix] Adverse unknown) Reaction (Severe, Verified 05/03/22 14:07) (unknown) (no (unknown) (unknown) gabapentin Adverse (units (unknown) date) Reaction (Severe, unknown) Verified 05/03/22 14:07) (unknown) (no (unknown) (unknown) has been fighting (units (unknown) date) metastatic breast unknown) cancer over the last year and is now in (unknown) (no (unknown) (unknown) have occurred. If (units (unknown) date) there are any unknown) questions, please contact the Medical Records (unknown) (no (unknown) (unknown) hyaluronate sodium, (units (unknown) date) stabilized 60 mg (3 unknown) mL) intra-articular ONCE 3 mL 0RF M17.10 (unknown) (no (unknown) (unknown) hyaluronate sodium, (unit s (unknown) date) stabilized 60 mg (3 unknown) mL) intra-articular ONCE 3 mL 0RF (unknown) (no (unknown) (unknown) hydromorphone 2 mg (units (unknown) date) tablet 2 mg PO Q4-6H unknown) PRN 02/17/22 [History Confirmed (unknown) (no (unknown) (unknown) hydroxyzine Allergy (unit s (unknown) date) (Verified 05/03/22 unknown) 14:07) (unknown) (no (unknown) (unknown) hyperparathyroidism (unit s (unknown) date) . unknown) (unknown) (no (unknown) (unknown) intravenous drug (units (unknown) date) use, sustained unknown) glucocorticoid use, osteoporosis, or a focal (unknown) (no (unknown) (unknown) introduced and (units (unknown) date) advanced into the unknown) intra-articular space. After negative (unknown) (no (unknown) (unknown) joint , moderate at (unit s (unknown) date) unknown) (unknown) (no (unknown) (unknown) joint. (units (unkno wn) date) unknown) (unknown) (no (unknown) (unknown) levothyroxine 25 (units (unknown) date) mcg tablet 25 mcg PO unknown) DAILY 02/17/22 [History Confirmed (unknown) (no (unknown) (unknown) lidocaine-prilocain (unit s (unknown) date) e 2.5 %-2.5 % unknown) topical cream 1 applic topical ONCE 02/17/22 (unknown) (no (unknown) (unknown) lorazepam Allergy (units (unknown) date) (Verified 05/03/22 unknown) 14:07) (unknown) (no (unknown) (unknown) may occur. (units (unk nown) date) Occasional unknown) wrong-word or 'sound-alike' substitutions may have (unknown) (no (unknown) (unknown) meclizine Allergy (units (unknown) date) (Verified 05/03/22 unknown) 14:07) (unknown) (no (unknown) (unknown) metformin 1,000 mg (units (unknown) date) tablet 1,000 mg PO unknown) DAILY 05/03/22 [History] (unknown) (no (unknown) (unknown) metoprolol tartrate (unit s (unknown) date) 50 mg tablet 50 mg unknown) PO BID 10/10/19 [History Confirmed (unknown) (no (unknown) (unknown) moderate to severe (units (unknown) date) unknown) (unknown) (no (unknown) (unknown) multivitamin 1 tab (units (unknown) date) PO DAILY 10/10/19 unknown) [History Confirmed 02/17/22] (unknown) (no (unknown) (unknown) nausea and rash (units (unknown) date) unknown) (unknown) (no (unknown) (unknown) nausea (units (unkno wn) date) unknown) (unknown) (no (unknown) (unknown) neurological (units (u nknown) date) deficit with unknown) progressive or disabling symptoms. (unknown) (no (unknown) (unknown) noted significant (units (unknown) date) relief prior to unknown) dismissal in excellent condition of their own (unknown) (no (unknown) (unknown) occurred due to the (unit s (unknown) date) inherent limitations unknown) of voice recognition software. Please (unknown) (no (unknown) (unknown) or (units (unkno wn) date) immunosuppressive unknown) therapy, previous or current cancer diagnosis, history of (unknown) (no (unknown) (unknown) osteophyte (units (unk nown) date) unknown) (unknown) (no (unknown) (unknown) paralysis, and (units (unknown) date) and they unknown) elected to proceed. Informed consent was obtained (unknown) (no (unknown) (unknown) patella. (units (unkno wn) date) Degenerative joint unknown) disease is present, severe at the patellofemoral (unknown) (no (unknown) (unknown) patellofemoral (units (unknown) date) compartment.. unknown) (unknown) (no (unknown) (unknown) pathology persist, (units (unknown) date) further assessment unknown) with repeat, or advanced imaging (e.g., (unknown) (no (unknown) (unknown) power. (units (unkno wn) date) unknown) (unknown) (no (unknown) (unknown) pregabalin 150 mg (units (unknown) date) capsule 150 mg PO unknown) TID 02/17/22 [History Confirmed 02/17/22] (unknown) (no (unknown) (unknown) previous history of (unit s (unknown) date) a lumbar unknown) decompressive laminectomy she believes in 2017 at (unknown) (no (unknown) (unknown) radicular (units (unkn own) date) features.? She unknown) denies any specific injury on his but does have a (unknown) (no (unknown) (unknown) rash (units (unkno wn) date) unknown) (unknown) (no (unknown) (unknown) rash/redness (units (u nknown) date) unknown) (unknown) (no (unknown) (unknown) read the note (units ( unknown) date) carefully and unknown) recognize, using context, where these substitutions (unknown) (no (unknown) (unknown) rosuvastatin 20 mg (units (unknown) date) tablet 20 mg PO unknown) DAILY 02/17/22 [History Confirmed 02/17/22] (unknown) (no (unknown) (unknown) sertraline 100 mg (units (unknown) date) tablet 150 mg PO unknown) DAILY 10/10/19 [History Confirmed 02/17/22] (unknown) (no (unknown) (unknown) severe hip DJD.? (units (unknown) date) She subsequently unknown) underwent total hip arthroplasty performed on (unknown) (no (unknown) (unknown) silver Adverse (units (unknown) date) Reaction (Severe, unknown) Verified 05/03/22 14:07) (unknown) (no (unknown) (unknown) sleepy (units (unkno wn) date) unknown) (unknown) (no (unknown) (unknown) software. 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 A unknown) 25 gauge needle with 1% lidocaine solution was (unknown) (no (unknown) (unknown) the injection (units ( unknown) date) procedure for unknown) complete details. (unknown) (no (unknown) (unknown) the medial (units (unk nown) date) femorotibial joint, unknown) mild at the lateral femorotibial joint. There is (unknown) (no (unknown) (unknown) the mid and lower (units (unknown) date) lumbar spine. unknown) (unknown) (no (unknown) (unknown) then refocused to (units (unknown) date) the left knee with unknown) the identical procedure was performed. (unknown) (no (unknown) (unknown) throughout (units (unk nown) date) unknown) (unknown) (no (unknown) (unknown) time. (units (unkno wn) date) unknown) (unknown) (no (unknown) (unknown) today without (units ( unknown) date) guarantees or unknown) assurances of complete relief applied. Please see (unknown) (no (unknown) (unknown) topical 10/10/19 (units (unknown) date) [History Confirmed unknown) 02/17/22] (unknown) (no (unknown) (unknown) treatment that has (units (unknown) date) included mastectomy unknown) as well as chemotherapy.? She does report (unknown) (no (unknown) (unknown) tricompartmental (units (unknown) date) knee joint unknown) degeneration, most most in the lateral femorotibial (unknown) (no (unknown) (unknown) used for (units (unkno wn) date) anesthetic. unknown) Subsequently then a 22 gauge needle was atraumatically (unknown) (no (unknown) (unknown) vertebral body (units (unknown) date) unknown) Result panel 5 (unknown) (no (unknown) (unknown) (no value) (units (unk nown) date) unknown) (unknown) (no (unknown) (unknown) (1) Facet (units (unkn own) date) arthropathy, lumbar: unknown) (unknown) (no (unknown) (unknown) (2) Gait (units (unkno wn) date) instability: unknown) (unknown) (no (unknown) (unknown) (3) Lumbosacral (units (unknown) date) spondylosis with unknown) radiculopathy: (unknown) (no (unknown) (unknown) (4) Sensory (units (un known) date) peripheral unknown) neuropathy: (unknown) (no (unknown) (unknown) (5) History of (units (unknown) date) total right hip unknown) arthroplasty: (unknown) (no (unknown) (unknown) (6) Degenerative (units (unknown) date) joint disease of unknown) knee: (unknown) (no (unknown) (unknown) 05/03/22 (units (unkno wn) date) unknown) (unknown) (no (unknown) (unknown) 10/10/19 [History (units (unknown) date) Confirmed 02/17/22] unknown) (unknown) (no (unknown) (unknown) 1. Multilevel (units ( unknown) date) degenerative disc unknown) and facet disease. (unknown) (no (unknown) (unknown) 1. Tricompartmental (unit s (unknown) date) knee joint unknown) degeneration, most severe at the patellofemoral (unknown) (no (unknown) (unknown) 02/17/22] (units (unkn own) date) unknown) (unknown) (no (unknown) (unknown) 14:07 (units (unkno wn) date) unknown) (unknown) (no (unknown) (unknown) 2. (units (unkno wn) date) Chondrocalcinosis. unknown) Differential diagnosis include CPPD and (unknown) (no (unknown) (unknown) 2. No acute (units (un known) date) fracture. No osseous unknown) lesion. If symptoms and/or clinical suspicion (unknown) (no (unknown) (unknown) 60 mg (units (unkno wn) date) intra-articular left unknown) 10/08/24 [id number] [facility] (unknown) (no (unknown) (unknown) 60 mg (units (unkno wn) date) intra-articular unknown) right knee 10/08/24 [id number] [facility] (unknown) (no (unknown) (unknown) [id number] (units (unkno wn) date) unknown) (unknown) (no (unknown) (unknown) Accompanied by: (units (unknown) date) Self / Same As unknown) Patient (unknown) (no (unknown) (unknown) Administered by: (units (unknown) date) José Miguel Larry DO on unknown) 05/03/22 14:29 (unknown) (no (unknown) (unknown) Age/Sex: 66 / F (units (unknown) date) Date of Service: unknown) (unknown) (no (unknown) (unknown) All other systems (units (unknown) date) reviewed and are unknown) unremarkable except as noted in HPI. (unknown) (no (unknown) (unknown) Allergies (units (unkn own) date) unknown) (unknown) (no (unknown) (unknown) [place] [address] (unit s (unknown) date) unknown) (unknown) (no (unknown) (unknown) Approved by: Sunil (unit s (unknown) date) Ho [place]f on unknown) 11/03/2019 at 9:51 (unknown) (no (unknown) (unknown) As oral consent, we (unit s (unknown) date) did review the risk unknown) to the above-stated procedure including (unknown) (no (unknown) (unknown) Assessment + Plan (units (unknown) date) unknown) (unknown) (no (unknown) (unknown) Attending Dr: (units ( unknown) date) José Miguel Larry D.O. unknown) (unknown) (no (unknown) (unknown) B-complex with (units (unknown) date) vitamin C 1 cap PO unknown) DAILY 10/10/19 [History Confirmed 02/17/22] (unknown) (no (unknown) (unknown) BMI 39.5 (units (unkno wn) date) unknown) (unknown) (no (unknown) (unknown) BP 128/80 (units (unkn own) date) unknown) (unknown) (no (unknown) (unknown) Blood Pressure (units (unknown) date) Location Rt brachial unknown) (unknown) (no (unknown) (unknown) Bones: 5 (units (unkno wn) date) nonrib-bearing unknown) vertebrae are present. There is mild grade 1 (unknown) (no (unknown) (unknown) Bones: No fractures (unit s (unknown) date) or dislocations. No unknown) suspicious bony lesions. Mild lateral (unknown) (no (unknown) (unknown) Bones: No fractures (unit s (unknown) date) or dislocations. No unknown) suspicious bony lesions. There is (unknown) (no (unknown) (unknown) COMPARISON: None. (units (unknown) date) unknown) (unknown) (no (unknown) (unknown) CT, MRI, or (units (un known) date) unknown) (unknown) (no (unknown) (unknown) Chief Complaint (units (unknown) date) unknown) (unknown) (no (unknown) (unknown) Chief Complaint: (units (unknown) date) Bilateral knee DJD unknown) (unknown) (no (unknown) (unknown) Covid19 (units (unkno wn) date) restrictions without unknown) difficulty without cough fever fatigue at this (unknown) (no (unknown) (unknown) : 1955 (units (unknown) date) Acct:[id number] unknown) (unknown) (no (unknown) (unknown) Denies recent (units ( unknown) date) trauma, fever or unknown) weight loss of unknown origin, immunocompromise (unknown) (no (unknown) (unknown) Dept at (units (unkno wn) date) . unknown) (unknown) (no (unknown) (unknown) Details: (units (unkno wn) date) unknown) (unknown) (no (unknown) (unknown) Dictated by: Sunil (unit s (unknown) date) Ho [place]f on unknown) 11/03/2019 at 9:50 (unknown) (no (unknown) (unknown) Documented By: (units (unknown) date) José Miguel Larry D.O. 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, breast CA, right hip TERI 06/2019 (unknown) (no (unknown) (unknown) Exam Narrative (units (unknown) date) unknown) (unknown) (no (unknown) (unknown) Exam Narrative: (units (unknown) date) unknown) (unknown) (no (unknown) (unknown) Exam (units (unkno wn) date) unknown) (unknown) (no (unknown) (unknown) Exp: 10/08/2024 (units (unknown) date) unknown) (unknown) (no (unknown) (unknown) FINDINGS: (units (unkn own) date) unknown) (unknown) (no (unknown) (unknown) Facet arthropathy, (units (unknown) date) lumbar unknown) (unknown) (no (unknown) (unknown) Gait instability (units (unknown) date) unknown) (unknown) (no (unknown) (unknown) Gait: (units (unkno wn) date) normalCoordination: unknown) normal (unknown) (no (unknown) (unknown) General Appearance: (unit s (unknown) date) well-nourished, well unknown) developed in no acute distress (unknown) (no (unknown) (unknown) HERE FOR BILATERAL (units (unknown) date) KNEE'S unknown) (unknown) (no (unknown) (unknown) HPI (units (unkno wn) date) unknown) (unknown) (no (unknown) (unknown) Height 5 ft 6 in (units (unknown) date) unknown) (unknown) (no (unknown) (unknown) History of total (units (unknown) date) right hip unknown) arthroplasty (unknown) (no (unknown) (unknown) IMPRESSION: (units (un known) date) Moderate to severe unknown) degenerative joint disease. (unknown) (no (unknown) (unknown) IMPRESSION: (units (un known) date) unknown) (unknown) (no (unknown) (unknown) INDICATIONS: LBP (units (unknown) date) with Right LE unknown) symptoms (unknown) (no (unknown) (unknown) Inspection / (units (u nknown) date) Palpation LE (R/L): unknown) non-tender bilaterally (unknown) (no (unknown) (unknown) Intake Clinical (units (unknown) date) Staff unknown) (unknown) (no (unknown) (unknown) Intake Note: (units (u nknown) date) unknown) (unknown) (no (unknown) (unknown) Intake performed (units (unknown) date) by: Sandra Mandujano unknown) (unknown) (no (unknown) (unknown) Intake (units (unkno wn) date) unknown) (unknown) (no (unknown) (unknown) Interventions/Proc. (unit s (unknown) date) unknown) (unknown) (no (unknown) (unknown) Interventions: (units (unknown) date) unknown) (unknown) (no (unknown) (unknown) Is patient in (units ( unknown) date) pain?: Yes (HERE FOR unknown) BILATERAL KNEE'S) Pain scale (1-10): 4 (unknown) (no (unknown) (unknown) Knee A/P Stability (units (unknown) date) (R/L): Ed unknown) (0+/0+); Posterior Drawer (0+/0+) (unknown) (no (unknown) (unknown) Knee Exam Bilateral (unit s (unknown) date) unknown) (unknown) (no (unknown) (unknown) Knee M/L Stability (units (unknown) date) (R/L): Varus unknown) (0+/0+); Valgus (0+/0+) (unknown) (no (unknown) (unknown) Knee ROM (R/L): (units (unknown) date) 0-130 / 0-130 unknown) (unknown) (no (unknown) (unknown) L5. Mild grade 1 (units (unknown) date) retrolisthesis of L1 unknown) on L2, L2 on L3, and L3 on L4. No (unknown) (no (unknown) (unknown) LE Skin: no rashes (units (unknown) date) or lesions unknown) bilaterally (unknown) (no (unknown) (unknown) Loc: PAIN (units (unkn own) date) unknown) (unknown) (no (unknown) (unknown) Lot: [id number] (units (unk nown) date) unknown) (unknown) (no (unknown) (unknown) Lumbosacral (units (un known) date) spondylosis with unknown) radiculopathy (unknown) (no (unknown) (unknown) M17.0 - Bilateral (units (unknown) date) primary unknown) osteoarthritis of knee (unknown) (no (unknown) (unknown) MSK: System (units (un known) date) reviewed and no unknown) additional complaints, except as documented. (unknown) (no (unknown) (unknown) [employer] (units (u nknown) date) unknown) (unknown) (no (unknown) (unknown) June of 2019 by (units (unknown) date) Dr. Teodoro barnett at unknown) [facility].? Additionally she (unknown) (no (unknown) (unknown) Medical History (units (unknown) date) (Reviewed 05/03/22 @ unknown) 14:28 by José Miguel Larry DO) (unknown) (no (unknown) (unknown) Medications (units (un known) date) unknown) (unknown) (no (unknown) (unknown) Medications: (units (u nknown) date) unknown) (unknown) (no (unknown) (unknown) Neuro: System (units ( unknown) date) reviewed and no unknown) additional complaints, except as documented. (unknown) (no (unknown) (unknown) New (units (unkno wn) date) unknown) (unknown) (no (unknown) (unknown) February 14, 2019. (units (unknown) date) But she continued unknown) with severe right hip pain secondary to (unknown) (no (unknown) (unknown) Objective Data (units (unknown) date) unknown) (unknown) (no (unknown) (unknown) Objective Data: (units (unknown) date) unknown) (unknown) (no (unknown) (unknown) Oblique images: No (units (unknown) date) pars defects. unknown) (unknown) (no (unknown) (unknown) Office Meds (units (un known) date) unknown) (unknown) (no (unknown) (unknown) Orders (units (unkno wn) date) unknown) (unknown) (no (unknown) (unknown) Orders: (units (unkno wn) date) unknown) (unknown) (no (unknown) (unknown) Orientation: (units (u nknown) date) oriented to person, unknown) place and time. Mood / Affect: calm (unknown) (no (unknown) (unknown) Osteoarthritis (units (unknown) date) type: primary unknown) Laterality: bilateral Qualified Code(s): (unknown) (no (unknown) (unknown) Oxygen Delivery (units (unknown) date) Method room air unknown) (unknown) (no (unknown) (unknown) PFSH (units (unkno wn) date) unknown) (unknown) (no (unknown) (unknown) PROCEDURE: XR (units ( unknown) date) LUMBAR SPINE MIN 4V unknown) (unknown) (no (unknown) (unknown) Pain Scale (units (unk nown) date) unknown) (unknown) (no (unknown) (unknown) Pain Visit (units (unk nown) date) unknown) (unknown) (no (unknown) (unknown) Patient: (units (unkno wn) date) Kristie Lantigua MR#: unknown) [id number] (unknown) (no (unknown) (unknown) Performing (units (unk nown) date) Provider: José Miguel unknown) DO [place] (unknown) (no (unknown) (unknown) [place], borderline (units (unknown) date) diabetes, right unknown) upper extremity DVT bacillic vein (unknown) (no (unknown) (unknown) Position Sitting (units (unknown) date) unknown) (unknown) (no (unknown) (unknown) [facility] (units (unknown) date) [facility].? Otherwise unknown) she reports feeling well maintain the (unknown) (no (unknown) (unknown) Pulse 63 (units (unkno wn) date) unknown) (unknown) (no (unknown) (unknown) Pulse Oximetry (%) (units (unknown) date) 97 unknown) (unknown) (no (unknown) (unknown) Pulse Source (units (u nknown) date) Monitor unknown) (unknown) (no (unknown) (unknown) QWEEK 02/17/22 (units (unknown) date) [History Confirmed unknown) 02/17/22] (unknown) (no (unknown) (unknown) Qualifiers: (units (un known) date) unknown) (unknown) (no (unknown) (unknown) ROS Narrative (units ( unknown) date) unknown) (unknown) (no (unknown) (unknown) ROS Narrative: (units (unknown) date) unknown) (unknown) (no (unknown) (unknown) ROS (units (unkno wn) date) unknown) (unknown) (no (unknown) (unknown) Reason For Visit (units (unknown) date) unknown) (unknown) (no (unknown) (unknown) Sensation: (units (unk nown) date) Subjective normal unknown) distal sensation bilaterally (unknown) (no (unknown) (unknown) Sensory peripheral (units (unknown) date) neuropathy unknown) (unknown) (no (unknown) (unknown) She additionally (units (unknown) date) reports progression unknown) of low back pain and right lower extremity (unknown) (no (unknown) (unknown) Signed By: (units (unk nown) date) unknown) (unknown) (no (unknown) (unknown) Laurel returns to (units (unknown) date) clinic today unknown) secondary do not multiple musculoskeletal (unknown) (no (unknown) (unknown) Smoking Status: (units (unknown) date) Never smoker unknown) (unknown) (no (unknown) (unknown) Soft tissues: No (units (unknown) date) joint effusion. No unknown) suspicious soft tissue calcifications. (unknown) (no (unknown) (unknown) Soft tissues: (units ( unknown) date) Overlying bowel gas unknown) pattern is normal. No suspicious soft tissue (unknown) (no (unknown) (unknown) Soft tissues: Trace (unit s (unknown) date) joint effusion. No unknown) suspicious soft tissue calcifications. (unknown) (no (unknown) (unknown) Status: Acute (units ( unknown) date) unknown) (unknown) (no (unknown) (unknown) Status: Chronic (units (unknown) date) unknown) (unknown) (no (unknown) (unknown) Strength LE: 5/5 (units (unknown) date) EHL, tibialis unknown) anterior, plantar flexion (unknown) (no (unknown) (unknown) Surgical History (units (unknown) date) (Reviewed 05/03/22 @ unknown) 14:28 by José Miguel Larry DO) (unknown) (no (unknown) (unknown) TECHNIQUE: 5 views (units (unknown) date) of the lumbar spine unknown) were acquired. (unknown) (no (unknown) (unknown) TERI with Dr. Boykin (units (unknown) date) at [facility].? She unknown) underwent bilateral Durolane injections on (unknown) (no (unknown) (unknown) Temp 98 F (units (unkn own) date) unknown) (unknown) (no (unknown) (unknown) Temp Source (units (un known) date) Temporal Artery Scan unknown) (unknown) (no (unknown) (unknown) [facility] (unit s (unknown) date) Management unknown) (unknown) (no (unknown) (unknown) The patient (units (un known) date) tolerated the unknown) procedure without signs or symptoms of complications (unknown) (no (unknown) (unknown) The right knee was (units (unknown) date) prepped in the unknown) superior anterior fashion with suprapatellar (unknown) (no (unknown) (unknown) This note may have (units (unknown) date) been all or unknown) partially generated using voice recognition (unknown) (no (unknown) (unknown) Tobacco + Substance (unit s (unknown) date) Use unknown) (unknown) (no (unknown) (unknown) Tobacco Status (units (unknown) date) unknown) (unknown) (no (unknown) (unknown) Vasculature: <2 (units (unknown) date) second capillary unknown) bilaterally (unknown) (no (unknown) (unknown) Visit Reasons: (units (unknown) date) BILATERAL KNEE'S, unknown) X-ray follow-up (unknown) (no (unknown) (unknown) Vitals (units (unkno wn) date) unknown) (unknown) (no (unknown) (unknown) Weight 245 lb (units ( unknown) date) unknown) (unknown) (no (unknown) (unknown) [History Confirmed (units (unknown) date) 02/17/22] unknown) (unknown) (no (unknown) (unknown) [History] (units (unkn own) date) unknown) (unknown) (no (unknown) (unknown) anastrozole Adverse (unit s (unknown) date) Reaction (Severe, unknown) Verified 05/03/22 14:07) (unknown) (no (unknown) (unknown) anterolisthesis of (units (unknown) date) L4 on unknown) (unknown) (no (unknown) (unknown) apixaban 2.5 mg (units (unknown) date) tablet (Eliquis) 2.5 unknown) mg PO DAILY 02/17/22 [History Confirmed (unknown) (no (unknown) (unknown) approach from a (units (unknown) date) lateral perspective. unknown) Ultrasound guidance was used to identify (unknown) (no (unknown) (unknown) ascorbic acid (units ( unknown) date) (vitamin C) 500 mg unknown) capsule mg PO 10/10/19 [History Confirmed (unknown) (no (unknown) (unknown) aspiration ampule (units (unknown) date) of Duralane was unknown) administered without incident. Attention was (unknown) (no (unknown) (unknown) bone scan) may be (units (unknown) date) helpful for further unknown) assessment. (unknown) (no (unknown) (unknown) buspirone 10 mg (units (unknown) date) tablet 10 mg PO unknown) DAILY 05/03/22 [History] (unknown) (no (unknown) (unknown) but not limited to (units (unknown) date) bleeding, infection, unknown) allergic reaction, nerve injury, stroke, (unknown) (no (unknown) (unknown) calcifications. (units (unknown) date) unknown) (unknown) (no (unknown) (unknown) capsaicin-methyl (units (unknown) date) salicylate-menthol unknown) 0.025 %-30 %-10 % lotion (Dendracin) each (unknown) (no (unknown) (unknown) celecoxib 100 mg PO (unit s (unknown) date) BID unknown) (unknown) (no (unknown) (unknown) celecoxib 100 mg (units (unknown) date) capsule 100 mg PO unknown) BID 05/03/22 [History Confirmed 05/03/22] (unknown) (no (unknown) (unknown) chemotherapy. (units ( unknown) date) unknown) (unknown) (no (unknown) (unknown) cholecalciferol (units (unknown) date) (vitamin D3) 50 mcg unknown) (2,000 unit) capsule 50 mcg PO DAILY (unknown) (no (unknown) (unknown) chondrocalcinosis. (units (unknown) date) unknown) (unknown) (no (unknown) (unknown) codeine Adverse (units (unknown) date) Reaction (Severe, unknown) Verified 05/03/22 14:07) (unknown) (no (unknown) (unknown) compartment and (units (unknown) date) unknown) (unknown) (no (unknown) (unknown) complaints.? She (units (unknown) date) was last seen unknown) secondary to bilateral knee DJD as well as right (unknown) (no (unknown) (unknown) compression (units (un known) date) fractures. No unknown) suspicious bony lesions. Mild multilevel endplate (unknown) (no (unknown) (unknown) developed a sensory (unit s (unknown) date) peripheral unknown) neuropathy as well secondary to the (unknown) (no (unknown) (unknown) diphenoxylate-atrop (unit s (unknown) date) ine 2.5 mg-0.025 mg unknown) tablet 1 tab PO BEDTIME 05/03/22 (unknown) (no (unknown) (unknown) dizziness (units (unkn own) date) unknown) (unknown) (no (unknown) (unknown) dizziness, SOB, (units (unknown) date) Headache unknown) (unknown) (no (unknown) (unknown) doxepin 25 mg (units ( unknown) date) capsule 25 mg PO unknown) BEDTIME 05/03/22 [History] (unknown) (no (unknown) (unknown) dulaglutide 0.75 (units (unknown) date) mg/0.5 mL unknown) subcutaneous pen injector (Trulicity) 0.75 mg SUBCUT (unknown) (no (unknown) (unknown) for (units (unkno wn) date) unknown) (unknown) (no (unknown) (unknown) formation and disc (units (unknown) date) space narrowing, unknown) worst at L1-L2 and L2-L3. Facet hypertrophy (unknown) (no (unknown) (unknown) furosemide [From (units (unknown) date) Lasix] Adverse unknown) Reaction (Severe, Verified 05/03/22 14:07) (unknown) (no (unknown) (unknown) gabapentin Adverse (units (unknown) date) Reaction (Severe, unknown) Verified 05/03/22 14:07) (unknown) (no (unknown) (unknown) has been fighting (units (unknown) date) metastatic breast unknown) cancer over the last year and is now in (unknown) (no (unknown) (unknown) have occurred. If (units (unknown) date) there are any unknown) questions, please contact the Medical Records (unknown) (no (unknown) (unknown) hyaluronate sodium, (unit s (unknown) date) stabilized unknown) (unknown) (no (unknown) (unknown) hydromorphone 2 mg (units (unknown) date) tablet 2 mg PO Q4-6H unknown) PRN 02/17/22 [History Confirmed (unknown) (no (unknown) (unknown) hydroxyzine Allergy (unit s (unknown) date) (Verified 05/03/22 unknown) 14:07) (unknown) (no (unknown) (unknown) hyperparathyroidism (unit s (unknown) date) . unknown) (unknown) (no (unknown) (unknown) intravenous drug (units (unknown) date) use, sustained unknown) glucocorticoid use, osteoporosis, or a focal (unknown) (no (unknown) (unknown) introduced and (units (unknown) date) advanced into the unknown) intra-articular space. After negative (unknown) (no (unknown) (unknown) joint , moderate at (unit s (unknown) date) unknown) (unknown) (no (unknown) (unknown) joint. (units (unkno wn) date) unknown) (unknown) (no (unknown) (unknown) levothyroxine 25 (units (unknown) date) mcg tablet 25 mcg PO unknown) DAILY 02/17/22 [History Confirmed (unknown) (no (unknown) (unknown) lidocaine-prilocain (unit s (unknown) date) e 2.5 %-2.5 % unknown) topical cream 1 applic topical ONCE 02/17/22 (unknown) (no (unknown) (unknown) lorazepam Allergy (units (unknown) date) (Verified 05/03/22 unknown) 14:07) (unknown) (no (unknown) (unknown) may occur. (units (unk nown) date) Occasional unknown) wrong-word or 'sound-alike' substitutions may have (unknown) (no (unknown) (unknown) meclizine Allergy (units (unknown) date) (Verified 05/03/22 unknown) 14:07) (unknown) (no (unknown) (unknown) metformin 1,000 mg (units (unknown) date) tablet 1,000 mg PO unknown) DAILY 05/03/22 [History] (unknown) (no (unknown) (unknown) metoprolol tartrate (unit s (unknown) date) 50 mg tablet 50 mg unknown) PO BID 10/10/19 [History Confirmed (unknown) (no (unknown) (unknown) moderate to severe (units (unknown) date) unknown) (unknown) (no (unknown) (unknown) multivitamin 1 tab (units (unknown) date) PO DAILY 10/10/19 unknown) [History Confirmed 02/17/22] (unknown) (no (unknown) (unknown) nausea and rash (units (unknown) date) unknown) (unknown) (no (unknown) (unknown) nausea (units (unkno wn) date) unknown) (unknown) (no (unknown) (unknown) neurological (units (u nknown) date) deficit with unknown) progressive or disabling symptoms. (unknown) (no (unknown) (unknown) noted significant (units (unknown) date) relief prior to unknown) dismissal in excellent condition of their own (unknown) (no (unknown) (unknown) occurred due to the (unit s (unknown) date) inherent limitations unknown) of voice recognition software. Please (unknown) (no (unknown) (unknown) or (units (unkno wn) date) immunosuppressive unknown) therapy, previous or current cancer diagnosis, history of (unknown) (no (unknown) (unknown) osteophyte (units (unk nown) date) unknown) (unknown) (no (unknown) (unknown) paralysis, and (units (unknown) date) and they unknown) elected to proceed. Informed consent was obtained (unknown) (no (unknown) (unknown) patella. (units (unkno wn) date) Degenerative joint unknown) disease is present, severe at the patellofemoral (unknown) (no (unknown) (unknown) patellofemoral (units (unknown) date) compartment.. unknown) (unknown) (no (unknown) (unknown) pathology persist, (units (unknown) date) further assessment unknown) with repeat, or advanced imaging (e.g., (unknown) (no (unknown) (unknown) power. (units (unkno wn) date) unknown) (unknown) (no (unknown) (unknown) pregabalin 150 mg (units (unknown) date) capsule 150 mg PO unknown) TID 02/17/22 [History Confirmed 02/17/22] (unknown) (no (unknown) (unknown) previous history of (unit s (unknown) date) a lumbar unknown) decompressive laminectomy she believes in 2017 at (unknown) (no (unknown) (unknown) radicular (units (unkn own) date) features.? She unknown) denies any specific injury on his but does have a (unknown) (no (unknown) (unknown) rash (units (unkno wn) date) unknown) (unknown) (no (unknown) (unknown) rash/redness (units (u nknown) date) unknown) (unknown) (no (unknown) (unknown) read the note (units ( unknown) date) carefully and unknown) recognize, using context, where these substitutions (unknown) (no (unknown) (unknown) rosuvastatin 20 mg (units (unknown) date) tablet 20 mg PO unknown) DAILY 02/17/22 [History Confirmed 02/17/22] (unknown) (no (unknown) (unknown) sertraline 100 mg (units (unknown) date) tablet 150 mg PO unknown) DAILY 10/10/19 [History Confirmed 02/17/22] (unknown) (no (unknown) (unknown) severe hip DJD.? (units (unknown) date) She subsequently unknown) underwent total hip arthroplasty performed on (unknown) (no (unknown) (unknown) silver Adverse (units (unknown) date) Reaction (Severe, unknown) Verified 05/03/22 14:07) (unknown) (no (unknown) (unknown) sleepy (units (unkno wn) date) unknown) (unknown) (no (unknown) (unknown) software. 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 A unknown) 25 gauge needle with 1% lidocaine solution was (unknown) (no (unknown) (unknown) the injection (units ( unknown) date) procedure for unknown) complete details. (unknown) (no (unknown) (unknown) the medial (units (unk nown) date) femorotibial joint, unknown) mild at the lateral femorotibial joint. There is (unknown) (no (unknown) (unknown) the mid and lower (units (unknown) date) lumbar spine. unknown) (unknown) (no (unknown) (unknown) then refocused to (units (unknown) date) the left knee with unknown) the identical procedure was performed. (unknown) (no (unknown) (unknown) throughout (units (unk nown) date) unknown) (unknown) (no (unknown) (unknown) time. (units (unkno wn) date) unknown) (unknown) (no (unknown) (unknown) today without (units ( unknown) date) guarantees or unknown) assurances of complete relief applied. Please see (unknown) (no (unknown) (unknown) topical 10/10/19 (units (unknown) date) [History Confirmed unknown) 02/17/22] (unknown) (no (unknown) (unknown) treatment that has (units (unknown) date) included mastectomy unknown) as well as chemotherapy.? She does report (unknown) (no (unknown) (unknown) tricompartmental (units (unknown) date) knee joint unknown) degeneration, most most in the lateral femorotibial (unknown) (no (unknown) (unknown) used for (units (unkno wn) date) anesthetic. unknown) Subsequently then a 22 gauge needle was atraumatically (unknown) (no (unknown) (unknown) vertebral body (units (unknown) date) unknown) Result panel 6 (unknown) (no (unknown) (unknown) (no value) (units (unk nown) date) unknown) (unknown) (no (unknown) (unknown) (1) Facet (units (unkn own) date) arthropathy, lumbar: unknown) (unknown) (no (unknown) (unknown) (2) Gait (units (unkno wn) date) instability: unknown) (unknown) (no (unknown) (unknown) (3) Lumbosacral (units (unknown) date) spondylosis with unknown) radiculopathy: (unknown) (no (unknown) (unknown) (4) Sensory (units (un known) date) peripheral unknown) neuropathy: (unknown) (no (unknown) (unknown) (5) History of (units (unknown) date) total right hip unknown) arthroplasty: (unknown) (no (unknown) (unknown) (6) Degenerative (units (unknown) date) joint disease of unknown) knee: (unknown) (no (unknown) (unknown) 05/03/22 (units (unkno wn) date) unknown) (unknown) (no (unknown) (unknown) 10/10/19 [History (units (unknown) date) Confirmed 02/17/22] unknown) (unknown) (no (unknown) (unknown) 1. Multilevel (units ( unknown) date) degenerative disc unknown) and facet disease. (unknown) (no (unknown) (unknown) 1. Tricompartmental (unit s (unknown) date) knee joint unknown) degeneration, most severe at the patellofemoral (unknown) (no (unknown) (unknown) 02/17/22] (units (unkn own) date) unknown) (unknown) (no (unknown) (unknown) 14:07 (units (unkno wn) date) unknown) (unknown) (no (unknown) (unknown) 2. (units (unkno wn) date) Chondrocalcinosis. unknown) Differential diagnosis include CPPD and (unknown) (no (unknown) (unknown) 2. No acute (units (un known) date) fracture. No osseous unknown) lesion. If symptoms and/or clinical suspicion (unknown) (no (unknown) (unknown) 60 mg (units (unkno wn) date) intra-articular left unknown) 10/08/24 [id number] [facility] [facility] (unknown) (no (unknown) (unknown) 60 mg (units (unkno wn) date) intra-articular unknown) right knee 10/08/24 [id number] [facility] (unknown) (no (unknown) (unknown) [id number] (units (unkno wn) date) unknown) (unknown) (no (unknown) (unknown) Accompanied by: (units (unknown) date) Self / Same As unknown) Patient (unknown) (no (unknown) (unknown) Administered by: (units (unknown) date) José Miguel Larry DO on unknown) 05/03/22 14:29 (unknown) (no (unknown) (unknown) Age/Sex: 66 / F (units (unknown) date) Date of Service: unknown) (unknown) (no (unknown) (unknown) All of her (units (unk nown) date) questions were unknown) answered to the best my ability she is in agreement (unknown) (no (unknown) (unknown) All other systems (units (unknown) date) reviewed and are unknown) unremarkable except as noted in HPI. (unknown) (no (unknown) (unknown) Allergies (units (unkn own) date) unknown) (unknown) (no (unknown) (unknown) [place] [id number] (unit s (unknown) date) unknown) (unknown) (no (unknown) (unknown) Approved by: Sunil (unit s (unknown) date) Ho Graf on unknown) 11/03/2019 at 9:51 (unknown) (no (unknown) (unknown) As oral consent, we (unit s (unknown) date) did review the risk unknown) to the above-stated procedure including (unknown) (no (unknown) (unknown) Assessment + Plan (units (unknown) date) unknown) (unknown) (no (unknown) (unknown) Attending Dr: (units ( unknown) date) José Miguel Larry D.O. unknown) (unknown) (no (unknown) (unknown) B-complex with (units (unknown) date) vitamin C 1 cap PO unknown) DAILY 07/01/20 [History Confirmed 02/17/22] (unknown) (no (unknown) (unknown) BMI 39.5 (units (unkno wn) date) unknown) (unknown) (no (unknown) (unknown) BP 128/80 (units (unkn own) date) unknown) (unknown) (no (unknown) (unknown) Blood Pressure (units (unknown) date) Location Rt brachial unknown) (unknown) (no (unknown) (unknown) Bones: 5 (units (unkno wn) date) nonrib-bearing unknown) vertebrae are present. There is mild grade 1 (unknown) (no (unknown) (unknown) Bones: No fractures (unit s (unknown) date) or dislocations. No unknown) suspicious bony lesions. Mild lateral (unknown) (no (unknown) (unknown) Bones: No fractures (unit s (unknown) date) or dislocations. No unknown) suspicious bony lesions. There is (unknown) (no (unknown) (unknown) COMPARISON: None. (units (unknown) date) unknown) (unknown) (no (unknown) (unknown) CT, MRI, or (units (un known) date) unknown) (unknown) (no (unknown) (unknown) Chief Complaint (units (unknown) date) unknown) (unknown) (no (unknown) (unknown) Chief Complaint: (units (unknown) date) Bilateral knee DJD unknown) (unknown) (no (unknown) (unknown) Covid19 (units (unkno wn) date) restrictions without unknown) difficulty without cough fever fatigue at this (unknown) (no (unknown) (unknown) : 1955 (units (unknown) date) Acct:[id number] unknown) (unknown) (no (unknown) (unknown) Denies recent (units ( unknown) date) trauma, fever or unknown) weight loss of unknown origin, immunocompromise (unknown) (no (unknown) (unknown) Dept at (units (unkno wn) date) . unknown) (unknown) (no (unknown) (unknown) Details: (units (unkno wn) date) unknown) (unknown) (no (unknown) (unknown) Dictated by: Sunil (unit s (unknown) date) Ho [place]f on unknown) 11/03/2019 at 9:50 (unknown) (no (unknown) (unknown) Documented By: (units (unknown) date) José Miguel Larry D.O. unknown) 05/03/22 1356 (unknown) (no (unknown) (unknown) Dose Route Admin (units (unknown) date) Location Lot Number unknown) Expiration Date NDC (unknown) (no (unknown) (unknown) Draft (units (unkno wn) date) unknown) (unknown) (no (unknown) (unknown) Durolane 60mg Today (units (unknown) date) M17.10 - Unilateral unknown) primary osteoarthritis, unspecified knee (unknown) (no (unknown) (unknown) Durolane 60mg Today (unit s (unknown) date) unknown) (unknown) (no (unknown) (unknown) Durolane (units (unkno wn) date) injections.? 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, breast CA, right hip TERI 06/2019 (unknown) (no (unknown) (unknown) Exam Narrative (units (unknown) date) unknown) (unknown) (no (unknown) (unknown) Exam Narrative: (units (unknown) date) unknown) (unknown) (no (unknown) (unknown) Exam (units (unkno wn) date) unknown) (unknown) (no (unknown) (unknown) Exp: 10/08/2024 (units (unknown) date) unknown) (unknown) (no (unknown) (unknown) FINDINGS: (units (unkn own) date) unknown) (unknown) (no (unknown) (unknown) Facet arthropathy, (units (unknown) date) lumbar unknown) (unknown) (no (unknown) (unknown) Gait instability (units (unknown) date) unknown) (unknown) (no (unknown) (unknown) Gait: (units (unkno wn) date) normalCoordination: unknown) normal (unknown) (no (unknown) (unknown) General Appearance: (unit s (unknown) date) well-nourished, well unknown) developed in no acute distress (unknown) (no (unknown) (unknown) HERE FOR BILATERAL (units (unknown) date) KNEE'S unknown) (unknown) (no (unknown) (unknown) HPI (units (unkno wn) date) unknown) (unknown) (no (unknown) (unknown) Height 5 ft 6 in (units (unknown) date) unknown) (unknown) (no (unknown) (unknown) History of total (units (unknown) date) right hip unknown) arthroplasty (unknown) (no (unknown) (unknown) IMPRESSION: (units (un known) date) Moderate to severe unknown) degenerative joint disease. (unknown) (no (unknown) (unknown) IMPRESSION: (units (un known) date) unknown) (unknown) (no (unknown) (unknown) INDICATIONS: LBP (units (unknown) date) with Right LE unknown) symptoms (unknown) (no (unknown) (unknown) Inspection / (units (u nknown) date) Palpation LE (R/L): unknown) non-tender bilaterally (unknown) (no (unknown) (unknown) Intake Clinical (units (unknown) date) Staff unknown) (unknown) (no (unknown) (unknown) Intake Note: (units (u nknown) date) unknown) (unknown) (no (unknown) (unknown) Intake performed (units (unknown) date) by: Sandra Mandujano unknown) (unknown) (no (unknown) (unknown) Intake (units (unkno wn) date) unknown) (unknown) (no (unknown) (unknown) Interventions/Proc. (unit s (unknown) date) unknown) (unknown) (no (unknown) (unknown) Interventions: (units (unknown) date) unknown) (unknown) (no (unknown) (unknown) Is patient in (units ( unknown) date) pain?: Yes (HERE FOR unknown) BILATERAL KNEE'S) Pain scale (1-10): 4 (unknown) (no (unknown) (unknown) Knee A/P Stability (units (unknown) date) (R/L): Ed unknown) (0+/0+); Posterior Drawer (0+/0+) (unknown) (no (unknown) (unknown) Knee Exam Bilateral (unit s (unknown) date) unknown) (unknown) (no (unknown) (unknown) Knee M/L Stability (units (unknown) date) (R/L): Varus unknown) (0+/0+); Valgus (0+/0+) (unknown) (no (unknown) (unknown) Knee ROM (R/L): (units (unknown) date) 0-130 / 0-130 unknown) (unknown) (no (unknown) (unknown) L5. Mild grade 1 (units (unknown) date) retrolisthesis of L1 unknown) on L2, L2 on L3, and L3 on L4. No (unknown) (no (unknown) (unknown) LE Skin: no rashes (units (unknown) date) or lesions unknown) bilaterally (unknown) (no (unknown) (unknown) Loc: PAIN (units (unkn own) date) unknown) (unknown) (no (unknown) (unknown) Lot: [id number] (units (unk nown) date) unknown) (unknown) (no (unknown) (unknown) Lumbosacral (units (un known) date) spondylosis with unknown) radiculopathy (unknown) (no (unknown) (unknown) M17.0 - Bilateral (units (unknown) date) primary unknown) osteoarthritis of knee (unknown) (no (unknown) (unknown) MSK: System (units (un known) date) reviewed and no unknown) additional complaints, except as documented. (unknown) (no (unknown) (unknown) [employer] (units (u nknown) date) unknown) (unknown) (no (unknown) (unknown) June of 2019 by (units (unknown) date) Dr. Teodoro barnett at unknown) [facility].? Additionally she (unknown) (no (unknown) (unknown) Medical History (units (unknown) date) (Reviewed 05/03/22 @ unknown) 14:28 by José Miguel Larry DO) (unknown) (no (unknown) (unknown) Medications (units (un known) date) unknown) (unknown) (no (unknown) (unknown) Medications: (units (u nknown) date) unknown) (unknown) (no (unknown) (unknown) Neuro: System (units ( unknown) date) reviewed and no unknown) additional complaints, except as documented. (unknown) (no (unknown) (unknown) New (units (unkno wn) date) unknown) (unknown) (no (unknown) (unknown) February 14, 2019. (units (unknown) date) But she continued unknown) with severe right hip pain secondary to (unknown) (no (unknown) (unknown) Objective Data (units (unknown) date) unknown) (unknown) (no (unknown) (unknown) Objective Data: (units (unknown) date) unknown) (unknown) (no (unknown) (unknown) Oblique images: No (units (unknown) date) pars defects. unknown) (unknown) (no (unknown) (unknown) Office Meds (units (un known) date) unknown) (unknown) (no (unknown) (unknown) Orders (units (unkno wn) date) unknown) (unknown) (no (unknown) (unknown) Orders: (units (unkno wn) date) unknown) (unknown) (no (unknown) (unknown) Orientation: (units (u nknown) date) oriented to person, unknown) place and time. Mood / Affect: calm (unknown) (no (unknown) (unknown) Osteoarthritis (units (unknown) date) type: primary unknown) Laterality: bilateral Qualified Code(s): (unknown) (no (unknown) (unknown) Oxygen Delivery (units (unknown) date) Method room air unknown) (unknown) (no (unknown) (unknown) PFSH (units (unkno wn) date) unknown) (unknown) (no (unknown) (unknown) PROCEDURE: XR (units ( unknown) date) LUMBAR SPINE MIN 4V unknown) (unknown) (no (unknown) (unknown) Pain Scale (units (unk nown) date) unknown) (unknown) (no (unknown) (unknown) Pain Visit (units (unk nown) date) unknown) (unknown) (no (unknown) (unknown) Patient: (units (unkno wn) date) Kristie Lantigua MR#: unknown) [id number] (unknown) (no (unknown) (unknown) Performing (units (unk nown) date) Provider: José Miguel unknown) DO [place] (unknown) (no (unknown) (unknown) [place], borderline (units (unknown) date) diabetes, right unknown) upper extremity DVT bacillic vein (unknown) (no (unknown) (unknown) Plan (units (unkno wn) date) unknown) (unknown) (no (unknown) (unknown) Position Sitting (units (unknown) date) unknown) (unknown) (no (unknown) (unknown) [facility] (units (unknown) date) [facility].? Otherwise unknown) she reports feeling well maintain the (unknown) (no (unknown) (unknown) Pulse 63 (units (unkno wn) date) unknown) (unknown) (no (unknown) (unknown) Pulse Oximetry (%) (units (unknown) date) 97 unknown) (unknown) (no (unknown) (unknown) Pulse Source (units (u nknown) date) Monitor unknown) (unknown) (no (unknown) (unknown) QWEEK 02/17/22 (units (unknown) date) [History Confirmed unknown) 02/17/22] (unknown) (no (unknown) (unknown) Qualifiers: (units (un known) date) unknown) (unknown) (no (unknown) (unknown) ROS Narrative (units ( unknown) date) unknown) (unknown) (no (unknown) (unknown) ROS Narrative: (units (unknown) date) unknown) (unknown) (no (unknown) (unknown) ROS (units (unkno wn) date) unknown) (unknown) (no (unknown) (unknown) Reason For Visit (units (unknown) date) unknown) (unknown) (no (unknown) (unknown) Sensation: (units (unk nown) date) Subjective normal unknown) distal sensation bilaterally (unknown) (no (unknown) (unknown) Sensory peripheral (units (unknown) date) neuropathy unknown) (unknown) (no (unknown) (unknown) She additionally (units (unknown) date) reports progression unknown) of low back pain and right lower extremity (unknown) (no (unknown) (unknown) She does find this (units (unknown) date) mildly beneficial unknown) reducing her arthritic knees.? She has (unknown) (no (unknown) (unknown) Signed By: (units (unk nown) date) unknown) (unknown) (no (unknown) (unknown) Laurel returns to (units (unknown) date) clinic today unknown) secondary do not multiple musculoskeletal (unknown) (no (unknown) (unknown) Smoking Status: (units (unknown) date) Never smoker unknown) (unknown) (no (unknown) (unknown) Soft tissues: No (units (unknown) date) joint effusion. No unknown) suspicious soft tissue calcifications. (unknown) (no (unknown) (unknown) Soft tissues: (units ( unknown) date) Overlying bowel gas unknown) pattern is normal. No suspicious soft tissue (unknown) (no (unknown) (unknown) Soft tissues: Trace (unit s (unknown) date) joint effusion. No unknown) suspicious soft tissue calcifications. (unknown) (no (unknown) (unknown) Status: Acute (units ( unknown) date) unknown) (unknown) (no (unknown) (unknown) Status: Chronic (units (unknown) date) unknown) (unknown) (no (unknown) (unknown) Strength LE: 5/5 (units (unknown) date) EHL, tibialis unknown) anterior, plantar flexion (unknown) (no (unknown) (unknown) Surgical History (units (unknown) date) (Reviewed 05/03/22 @ unknown) 14:28 by José Miguel Larry DO) (unknown) (no (unknown) (unknown) Kristie and I (units (u nknown) date) discussed at length unknown) her underlying pathology with her bilateral (unknown) (no (unknown) (unknown) TECHNIQUE: 5 views (units (unknown) date) of the lumbar spine unknown) were acquired. (unknown) (no (unknown) (unknown) TERI with Dr. Boykin (units (unknown) date) at [facility].? She unknown) underwent bilateral Durolane injections on (unknown) (no (unknown) (unknown) Temp 98 F (units (unkn own) date) unknown) (unknown) (no (unknown) (unknown) Temp Source (units (un known) date) Temporal Artery Scan unknown) (unknown) (no (unknown) (unknown) [facility] (unit s (unknown) date) Management unknown) (unknown) (no (unknown) (unknown) The patient (units (un known) date) tolerated the unknown) procedure without signs or symptoms of complications (unknown) (no (unknown) (unknown) The right knee was (units (unknown) date) prepped in the unknown) superior anterior fashion with suprapatellar (unknown) (no (unknown) (unknown) This note may have (units (unknown) date) been all or unknown) partially generated using voice recognition (unknown) (no (unknown) (unknown) Tobacco + Substance (unit s (unknown) date) Use unknown) (unknown) (no (unknown) (unknown) Tobacco Status (units (unknown) date) unknown) (unknown) (no (unknown) (unknown) Vasculature: <2 (units (unknown) date) second capillary unknown) bilaterally (unknown) (no (unknown) (unknown) Visit Reasons: (units (unknown) date) BILATERAL KNEE'S, unknown) X-ray follow-up (unknown) (no (unknown) (unknown) Vitals (units (unkno wn) date) unknown) (unknown) (no (unknown) (unknown) We reviewed her (units (unknown) date) updated x-ray unknown) studies and elected to repeat Durolane injection (unknown) (no (unknown) (unknown) Weight 245 lb (units ( unknown) date) unknown) (unknown) (no (unknown) (unknown) [History Confirmed (units (unknown) date) 02/17/22] unknown) (unknown) (no (unknown) (unknown) [History] (units (unkn own) date) unknown) (unknown) (no (unknown) (unknown) anastrozole Adverse (unit s (unknown) date) Reaction (Severe, unknown) Verified 05/03/22 14:07) (unknown) (no (unknown) (unknown) anterolisthesis of (units (unknown) date) L4 on unknown) (unknown) (no (unknown) (unknown) apixaban 2.5 mg (units (unknown) date) tablet (Eliquis) 2.5 unknown) mg PO DAILY 02/17/22 [History Confirmed (unknown) (no (unknown) (unknown) approach from a (units (unknown) date) lateral perspective. unknown) Ultrasound guidance was used to identify (unknown) (no (unknown) (unknown) ascorbic acid (units ( unknown) date) (vitamin C) 500 mg unknown) capsule mg PO 10/10/19 [History Confirmed (unknown) (no (unknown) (unknown) aspiration ampule (units (unknown) date) of Duralane was unknown) administered without incident. Attention was (unknown) (no (unknown) (unknown) bleeding, (units (unkn own) date) infection, allergic unknown) reaction, nerve injury, stroke, paralysis and (unknown) (no (unknown) (unknown) bone scan) may be (units (unknown) date) helpful for further unknown) assessment. (unknown) (no (unknown) (unknown) buspirone 10 mg (units (unknown) date) tablet 10 mg PO unknown) DAILY 05/03/22 [History] (unknown) (no (unknown) (unknown) but not limited to (units (unknown) date) bleeding, infection, unknown) allergic reaction, nerve injury, stroke, (unknown) (no (unknown) (unknown) calcifications. (units (unknown) date) unknown) (unknown) (no (unknown) (unknown) capsaicin-methyl (units (unknown) date) salicylate-menthol unknown) 0.025 %-30 %-10 % lotion (Dendracin) each (unknown) (no (unknown) (unknown) celecoxib 100 mg PO (unit s (unknown) date) BID unknown) (unknown) (no (unknown) (unknown) celecoxib 100 mg (units (unknown) date) capsule 100 mg PO unknown) BID 05/03/22 [History Confirmed 05/03/22] (unknown) (no (unknown) (unknown) chemotherapy. (units ( unknown) date) unknown) (unknown) (no (unknown) (unknown) cholecalciferol (units (unknown) date) (vitamin D3) 50 mcg unknown) (2,000 unit) capsule 50 mcg PO DAILY (unknown) (no (unknown) (unknown) chondrocalcinosis. (units (unknown) date) unknown) (unknown) (no (unknown) (unknown) codeine Adverse (units (unknown) date) Reaction (Severe, unknown) Verified 05/03/22 14:07) (unknown) (no (unknown) (unknown) compartment and (units (unknown) date) unknown) (unknown) (no (unknown) (unknown) complaints.? She (units (unknown) date) was last seen unknown) secondary to bilateral knee DJD as well as right (unknown) (no (unknown) (unknown) compression (units (un known) date) fractures. No unknown) suspicious bony lesions. Mild multilevel endplate (unknown) (no (unknown) (unknown) and the (units ( unknown) date) patient elected to unknown) proceed. Informed consent was obtained today (unknown) (no (unknown) (unknown) developed a sensory (unit s (unknown) date) peripheral unknown) neuropathy as well secondary to the (unknown) (no (unknown) (unknown) did review the (units (unknown) date) risks of the above unknown) stated procedure including not limited to (unknown) (no (unknown) (unknown) diphenoxylate-atrop (unit s (unknown) date) ine 2.5 mg-0.025 mg unknown) tablet 1 tab PO BEDTIME 05/03/22 (unknown) (no (unknown) (unknown) dizziness (units (unkn own) date) unknown) (unknown) (no (unknown) (unknown) dizziness, SOB, (units (unknown) date) Headache unknown) (unknown) (no (unknown) (unknown) doxepin 25 mg (units ( unknown) date) capsule 25 mg PO unknown) BEDTIME 05/03/22 [History] (unknown) (no (unknown) (unknown) dulaglutide 0.75 (units (unknown) date) mg/0.5 mL unknown) subcutaneous pen injector (Trulicity) 0.75 mg SUBCUT (unknown) (no (unknown) (unknown) for (units (unkno wn) date) unknown) (unknown) (no (unknown) (unknown) formation and disc (units (unknown) date) space narrowing, unknown) worst at L1-L2 and L2-L3. Facet hypertrophy (unknown) (no (unknown) (unknown) found very positive (units (unknown) date) affect with the use unknown) of Celebrex in the past as well.? We did (unknown) (no (unknown) (unknown) furosemide [From (units (unknown) date) Lasix] Adverse unknown) Reaction (Severe, Verified 05/03/22 14:07) (unknown) (no (unknown) (unknown) gabapentin Adverse (units (unknown) date) Reaction (Severe, unknown) Verified 05/03/22 14:07) (unknown) (no (unknown) (unknown) has been fighting (units (unknown) date) metastatic breast unknown) cancer over the last year and is now in (unknown) (no (unknown) (unknown) have occurred. If (units (unknown) date) there are any unknown) questions, please contact the Medical Records (unknown) (no (unknown) (unknown) her current regimen (units (unknown) date) and she is currently unknown) on prednisone 5 mg tablets p.o. q.day.? (unknown) (no (unknown) (unknown) hyaluronate sodium, (unit s (unknown) date) stabilized unknown) (unknown) (no (unknown) (unknown) hydromorphone 2 mg (units (unknown) date) tablet 2 mg PO Q4-6H unknown) PRN 02/17/22 [History Confirmed (unknown) (no (unknown) (unknown) hydroxyzine Allergy (unit s (unknown) date) (Verified 05/03/22 unknown) 14:07) (unknown) (no (unknown) (unknown) hyperparathyroidism (unit s (unknown) date) . unknown) (unknown) (no (unknown) (unknown) intravenous drug (units (unknown) date) use, sustained unknown) glucocorticoid use, osteoporosis, or a focal (unknown) (no (unknown) (unknown) introduced and (units (unknown) date) advanced into the unknown) intra-articular space. After negative (unknown) (no (unknown) (unknown) joint , moderate at (unit s (unknown) date) unknown) (unknown) (no (unknown) (unknown) joint. (units (unkno wn) date) unknown) (unknown) (no (unknown) (unknown) knee DJD as well as (unit s (unknown) date) her lumbar unknown) stenosis.? She is currently in the middle of (unknown) (no (unknown) (unknown) levothyroxine 25 (units (unknown) date) mcg tablet 25 mcg PO unknown) DAILY 02/17/22 [History Confirmed (unknown) (no (unknown) (unknown) lidocaine-prilocain (unit s (unknown) date) e 2.5 %-2.5 % unknown) topical cream 1 applic topical ONCE 02/17/22 (unknown) (no (unknown) (unknown) lorazepam Allergy (units (unknown) date) (Verified 05/03/22 unknown) 14:07) (unknown) (no (unknown) (unknown) may occur. (units (unk nown) date) Occasional unknown) wrong-word or 'sound-alike' substitutions may have (unknown) (no (unknown) (unknown) meclizine Allergy (units (unknown) date) (Verified 05/03/22 unknown) 14:07) (unknown) (no (unknown) (unknown) metformin 1,000 mg (units (unknown) date) tablet 1,000 mg PO unknown) DAILY 05/03/22 [History] (unknown) (no (unknown) (unknown) metoprolol tartrate (unit s (unknown) date) 50 mg tablet 50 mg unknown) PO BID 10/10/19 [History Confirmed (unknown) (no (unknown) (unknown) moderate to severe (units (unknown) date) unknown) (unknown) (no (unknown) (unknown) multivitamin 1 tab (units (unknown) date) PO DAILY 10/10/19 unknown) [History Confirmed 02/17/22] (unknown) (no (unknown) (unknown) nausea and rash (units (unknown) date) unknown) (unknown) (no (unknown) (unknown) nausea (units (unkno wn) date) unknown) (unknown) (no (unknown) (unknown) neurological (units (u nknown) date) deficit with unknown) progressive or disabling symptoms. (unknown) (no (unknown) (unknown) noted significant (units (unknown) date) relief prior to unknown) dismissal in excellent condition of their own (unknown) (no (unknown) (unknown) occurred due to the (unit s (unknown) date) inherent limitations unknown) of voice recognition software. Please (unknown) (no (unknown) (unknown) or (units (unkno wn) date) immunosuppressive unknown) therapy, previous or current cancer diagnosis, history of (unknown) (no (unknown) (unknown) osteophyte (units (unk nown) date) unknown) (unknown) (no (unknown) (unknown) paralysis, and (units (unknown) date) and they unknown) elected to proceed. Informed consent was obtained (unknown) (no (unknown) (unknown) patella. (units (unkno wn) date) Degenerative joint unknown) disease is present, severe at the patellofemoral (unknown) (no (unknown) (unknown) patellofemoral (units (unknown) date) compartment.. unknown) (unknown) (no (unknown) (unknown) pathology persist, (units (unknown) date) further assessment unknown) with repeat, or advanced imaging (e.g., (unknown) (no (unknown) (unknown) power. (units (unkno wn) date) unknown) (unknown) (no (unknown) (unknown) pregabalin 150 mg (units (unknown) date) capsule 150 mg PO unknown) TID 02/17/22 [History Confirmed 02/17/22] (unknown) (no (unknown) (unknown) previous history of (unit s (unknown) date) a lumbar unknown) decompressive laminectomy she believes in 2017 at (unknown) (no (unknown) (unknown) procedure at length (unit s (unknown) date) and verbal consent unknown) was obtained today, As oral consent, we (unknown) (no (unknown) (unknown) procedure note for (units (unknown) date) full details. unknown) (unknown) (no (unknown) (unknown) radicular (units (unkn own) date) features.? She unknown) denies any specific injury on his but does have a (unknown) (no (unknown) (unknown) rash (units (unkno wn) date) unknown) (unknown) (no (unknown) (unknown) rash/redness (units (u nknown) date) unknown) (unknown) (no (unknown) (unknown) read the note (units ( unknown) date) carefully and unknown) recognize, using context, where these substitutions (unknown) (no (unknown) (unknown) review her (units (unk nown) date) underlying unknown) pathologies and elected to proceed with updated x-ray (unknown) (no (unknown) (unknown) rosuvastatin 20 mg (units (unknown) date) tablet 20 mg PO unknown) DAILY 02/17/22 [History Confirmed 02/17/22] (unknown) (no (unknown) (unknown) sertraline 100 mg (units (unknown) date) tablet 150 mg PO unknown) DAILY 10/10/19 [History Confirmed 02/17/22] (unknown) (no (unknown) (unknown) severe hip DJD.? (units (unknown) date) She subsequently unknown) underwent total hip arthroplasty performed on (unknown) (no (unknown) (unknown) silver Adverse (units (unknown) date) Reaction (Severe, unknown) Verified 05/03/22 14:07) (unknown) (no (unknown) (unknown) since her last (units (unknown) date) injection was unknown) 02/14/2019. We did review the above-stated (unknown) (no (unknown) (unknown) sleepy (units (unkno wn) date) unknown) (unknown) (no (unknown) (unknown) software. Although (units (unknown) date) every effort is made unknown) to edit content, bead supervisor errors (unknown) (no (unknown) (unknown) studies of (units (unk nown) date) 02/14/2019.? She did unknown) respond very well at that time to bilateral (unknown) (no (unknown) (unknown) studies of her (units (unknown) date) bilateral knees as unknown) she had moderate knee DJD noticed on x-ray (unknown) (no (unknown) (unknown) subluxation of (units (unknown) date) unknown) (unknown) (no (unknown) (unknown) tagaderm bandage (units (unknown) date) Allergy (Uncoded unknown) 05/03/22 14:07) (unknown) (no (unknown) (unknown) that this is been (units (unknown) date) very effective in unknown) treating her cancer but she reports she has (unknown) (no (unknown) (unknown) the anterior (units (u nknown) date) articular space. A unknown) 25 gauge needle with 1% lidocaine solution was (unknown) (no (unknown) (unknown) the injection (units ( unknown) date) procedure for unknown) complete details. (unknown) (no (unknown) (unknown) the medial (units (unk nown) date) femorotibial joint, unknown) mild at the lateral femorotibial joint. There is (unknown) (no (unknown) (unknown) the mid and lower (units (unknown) date) lumbar spine. unknown) (unknown) (no (unknown) (unknown) then refocused to (units (unknown) date) the left knee with unknown) the identical procedure was performed. (unknown) (no (unknown) (unknown) throughout (units (unk nown) date) unknown) (unknown) (no (unknown) (unknown) time. (units (unkno wn) date) unknown) (unknown) (no (unknown) (unknown) today without (units ( unknown) date) guarantees or unknown) assurances of complete relief applied. Please see (unknown) (no (unknown) (unknown) topical 10/10/19 (units (unknown) date) [History Confirmed unknown) 02/17/22] (unknown) (no (unknown) (unknown) treatment regarding (unit s (unknown) date) her breast CA with unknown) metastasis to the liver.? We did discuss (unknown) (no (unknown) (unknown) treatment that has (units (unknown) date) included mastectomy unknown) as well as chemotherapy.? She does report (unknown) (no (unknown) (unknown) tricompartmental (units (unknown) date) knee joint unknown) degeneration, most most in the lateral femorotibial (unknown) (no (unknown) (unknown) used for (units (unkno wn) date) anesthetic. unknown) Subsequently then a 22 gauge needle was atraumatically (unknown) (no (unknown) (unknown) vertebral body (units (unknown) date) unknown) (unknown) (no (unknown) (unknown) with the (units (unkno wn) date) above-stated plan. unknown) (unknown) (no (unknown) (unknown) without guarantees (units (unknown) date) or assurances of unknown) complete relief applied. Please see the Result panel 7 (unknown) (no (unknown) (unknown) (no value) (units (unk nown) date) unknown) (unknown) (no (unknown) (unknown) (1) Facet (units (unkn own) date) arthropathy, lumbar: unknown) (unknown) (no (unknown) (unknown) (2) Gait (units (unkno wn) date) instability: unknown) (unknown) (no (unknown) (unknown) (3) Lumbosacral (units (unknown) date) spondylosis with unknown) radiculopathy: (unknown) (no (unknown) (unknown) (4) Sensory (units (un known) date) peripheral unknown) neuropathy: (unknown) (no (unknown) (unknown) (5) History of (units (unknown) date) total right hip unknown) arthroplasty: (unknown) (no (unknown) (unknown) (6) Degenerative (units (unknown) date) joint disease of unknown) knee: (unknown) (no (unknown) (unknown) 05/03/22 1448 (units ( unknown) date) unknown) (unknown) (no (unknown) (unknown) 05/03/22 (units (unkno wn) date) unknown) (unknown) (no (unknown) (unknown) 10/10/19 [History (units (unknown) date) Confirmed 02/17/22] unknown) (unknown) (no (unknown) (unknown) 1. Multilevel (units ( unknown) date) degenerative disc unknown) and facet disease. (unknown) (no (unknown) (unknown) 1. Tricompartmental (unit s (unknown) date) knee joint unknown) degeneration, most severe at the patellofemoral (unknown) (no (unknown) (unknown) 02/17/22] (units (unkn own) date) unknown) (unknown) (no (unknown) (unknown) 14:07 (units (unkno wn) date) unknown) (unknown) (no (unknown) (unknown) 2. (units (unkno wn) date) Chondrocalcinosis. unknown) Differential diagnosis include CPPD and (unknown) (no (unknown) (unknown) 2. No acute (units (un known) date) fracture. No osseous unknown) lesion. If symptoms and/or clinical suspicion (unknown) (no (unknown) (unknown) 60 mg (units (unkno wn) date) intra-articular left unknown) 10/08/24 [id number] Magzter (unknown) (no (unknown) (unknown) 60 mg (units (unkno wn) date) intra-articular unknown) right knee 10/08/24 [id number] [place]zter (unknown) (no (unknown) (unknown) [id number] (units (unkno wn) date) unknown) (unknown) (no (unknown) (unknown) Accompanied by: (units (unknown) date) Self / Same As unknown) Patient (unknown) (no (unknown) (unknown) Administered by: (units (unknown) date) José Miguel Larry DO on unknown) 05/03/22 14:29 (unknown) (no (unknown) (unknown) Age/Sex: 66 / F (units (unknown) date) Date of Service: unknown) (unknown) (no (unknown) (unknown) All of her (units (unk nown) date) questions were unknown) answered to the best my ability she is in agreement (unknown) (no (unknown) (unknown) All other systems (units (unknown) date) reviewed and are unknown) unremarkable except as noted in HPI. (unknown) (no (unknown) (unknown) Allergies (units (unkn own) date) unknown) (unknown) (no (unknown) (unknown) [place] [address] (unit s (unknown) date) unknown) (unknown) (no (unknown) (unknown) Approved by: Sunil (unit s (unknown) date) Ho Graf on unknown) 11/03/2019 at 9:51 (unknown) (no (unknown) (unknown) As oral consent, we (unit s (unknown) date) did review the risk unknown) to the above-stated procedure including (unknown) (no (unknown) (unknown) Assessment + Plan (units (unknown) date) unknown) (unknown) (no (unknown) (unknown) Attending Dr: (units ( unknown) date) José Miguel Larry D.O. unknown) (unknown) (no (unknown) (unknown) B-complex with (units (unknown) date) vitamin C 1 cap PO unknown) DAILY 10/10/19 [History Confirmed 02/17/22] (unknown) (no (unknown) (unknown) BMI 39.5 (units (unkno wn) date) unknown) (unknown) (no (unknown) (unknown) BP 128/80 (units (unkn own) date) unknown) (unknown) (no (unknown) (unknown) Blood Pressure (units (unknown) date) Location Rt brachial unknown) (unknown) (no (unknown) (unknown) Bones: 5 (units (unkno wn) date) nonrib-bearing unknown) vertebrae are present. There is mild grade 1 (unknown) (no (unknown) (unknown) Bones: No fractures (unit s (unknown) date) or dislocations. No unknown) suspicious bony lesions. Mild lateral (unknown) (no (unknown) (unknown) Bones: No fractures (unit s (unknown) date) or dislocations. No unknown) suspicious bony lesions. There is (unknown) (no (unknown) (unknown) COMPARISON: None. (units (unknown) date) unknown) (unknown) (no (unknown) (unknown) CT, MRI, or (units (un known) date) unknown) (unknown) (no (unknown) (unknown) Chief Complaint (units (unknown) date) unknown) (unknown) (no (unknown) (unknown) Chief Complaint: (units (unknown) date) Bilateral knee DJD unknown) (unknown) (no (unknown) (unknown) Covid19 (units (unkno wn) date) restrictions without unknown) difficulty without cough fever fatigue at this (unknown) (no (unknown) (unknown) : 1955 (units (unknown) date) Acct:[id number] unknown) (unknown) (no (unknown) (unknown) Denies recent (units ( unknown) date) trauma, fever or unknown) weight loss of unknown origin, immunocompromise (unknown) (no (unknown) (unknown) Dept at (units (unkno wn) date) . unknown) (unknown) (no (unknown) (unknown) Details: (units (unkno wn) date) unknown) (unknown) (no (unknown) (unknown) Dictated by: Sunil (unit s (unknown) date) Ho Graf on unknown) 11/03/2019 at 9:50 (unknown) (no (unknown) (unknown) Documented By: (units (unknown) date) José Miguel Larry D.O. unknown) 05/03/22 1356 (unknown) (no (unknown) (unknown) Dose Route Admin (units (unknown) date) Location Lot Number unknown) Expiration Date NDC (unknown) (no (unknown) (unknown) Durolane 60mg Today (units (unknown) date) M17.10 - Unilateral unknown) primary osteoarthritis, unspecified knee (unknown) (no (unknown) (unknown) Durolane 60mg Today (unit s (unknown) date) unknown) (unknown) (no (unknown) (unknown) Durolane (units (unkno wn) date) injections.? 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, breast CA, right hip TERI 06/2019 (unknown) (no (unknown) (unknown) Exam Narrative (units (unknown) date) unknown) (unknown) (no (unknown) (unknown) Exam Narrative: (units (unknown) date) unknown) (unknown) (no (unknown) (unknown) Exam (units (unkno wn) date) unknown) (unknown) (no (unknown) (unknown) Exp: 10/08/2024 (units (unknown) date) unknown) (unknown) (no (unknown) (unknown) FINDINGS: (units (unkn own) date) unknown) (unknown) (no (unknown) (unknown) Facet arthropathy, (units (unknown) date) lumbar unknown) (unknown) (no (unknown) (unknown) Gait instability (units (unknown) date) unknown) (unknown) (no (unknown) (unknown) Gait: (units (unkno wn) date) normalCoordination: unknown) normal (unknown) (no (unknown) (unknown) General Appearance: (unit s (unknown) date) well-nourished, well unknown) developed in no acute distress (unknown) (no (unknown) (unknown) HERE FOR BILATERAL (units (unknown) date) KNEE'S unknown) (unknown) (no (unknown) (unknown) HPI (units (unkno wn) date) unknown) (unknown) (no (unknown) (unknown) Height 5 ft 6 in (units (unknown) date) unknown) (unknown) (no (unknown) (unknown) History of total (units (unknown) date) right hip unknown) arthroplasty (unknown) (no (unknown) (unknown) IMPRESSION: (units (un known) date) Moderate to severe unknown) degenerative joint disease. (unknown) (no (unknown) (unknown) IMPRESSION: (units (un known) date) unknown) (unknown) (no (unknown) (unknown) INDICATIONS: LBP (units (unknown) date) with Right LE unknown) symptoms (unknown) (no (unknown) (unknown) Inspection / (units (u nknown) date) Palpation LE (R/L): unknown) non-tender bilaterally (unknown) (no (unknown) (unknown) Intake Clinical (units (unknown) date) Staff unknown) (unknown) (no (unknown) (unknown) Intake Note: (units (u nknown) date) unknown) (unknown) (no (unknown) (unknown) Intake performed (units (unknown) date) by: Sandra Mandujano unknown) (unknown) (no (unknown) (unknown) Intake (units (unkno wn) date) unknown) (unknown) (no (unknown) (unknown) Interventions/Proc. (unit s (unknown) date) unknown) (unknown) (no (unknown) (unknown) Interventions: (units (unknown) date) unknown) (unknown) (no (unknown) (unknown) Is patient in (units ( unknown) date) pain?: Yes (HERE FOR unknown) BILATERAL KNEE'S) Pain scale (1-10): 4 (unknown) (no (unknown) (unknown) Knee A/P Stability (units (unknown) date) (R/L): Ed unknown) (0+/0+); Posterior Drawer (0+/0+) (unknown) (no (unknown) (unknown) Knee Exam Bilateral (unit s (unknown) date) unknown) (unknown) (no (unknown) (unknown) Knee M/L Stability (units (unknown) date) (R/L): Varus unknown) (0+/0+); Valgus (0+/0+) (unknown) (no (unknown) (unknown) Knee ROM (R/L): (units (unknown) date) 0-130 / 0-130 unknown) (unknown) (no (unknown) (unknown) L5. Mild grade 1 (units (unknown) date) retrolisthesis of L1 unknown) on L2, L2 on L3, and L3 on L4. No (unknown) (no (unknown) (unknown) LE Skin: no rashes (units (unknown) date) or lesions unknown) bilaterally (unknown) (no (unknown) (unknown) Loc: PAIN (units (unkn own) date) unknown) (unknown) (no (unknown) (unknown) Lot: [id number] (units (unk nown) date) unknown) (unknown) (no (unknown) (unknown) Lumbosacral (units (un known) date) spondylosis with unknown) radiculopathy (unknown) (no (unknown) (unknown) M17.0 - Bilateral (units (unknown) date) primary unknown) osteoarthritis of knee (unknown) (no (unknown) (unknown) MSK: System (units (un known) date) reviewed and no unknown) additional complaints, except as documented. (unknown) (no (unknown) (unknown) [employer] (units (u nknown) date) unknown) (unknown) (no (unknown) (unknown) June of 2019 by (units (unknown) date) Dr. Teodoro barnett at unknown) [facility].? Additionally she (unknown) (no (unknown) (unknown) Medical History (units (unknown) date) (Reviewed 05/03/22 @ unknown) 14:28 by José Miguel Larry DO) (unknown) (no (unknown) (unknown) Medications (units (un known) date) unknown) (unknown) (no (unknown) (unknown) Medications: (units (u nknown) date) unknown) (unknown) (no (unknown) (unknown) Neuro: System (units ( unknown) date) reviewed and no unknown) additional complaints, except as documented. (unknown) (no (unknown) (unknown) New (units (unkno wn) date) unknown) (unknown) (no (unknown) (unknown) February 14, 2019. (units (unknown) date) But she continued unknown) with severe right hip pain secondary to (unknown) (no (unknown) (unknown) Objective Data (units (unknown) date) unknown) (unknown) (no (unknown) (unknown) Objective Data: (units (unknown) date) unknown) (unknown) (no (unknown) (unknown) Oblique images: No (units (unknown) date) pars defects. unknown) (unknown) (no (unknown) (unknown) Office Meds (units (un known) date) unknown) (unknown) (no (unknown) (unknown) Orders (units (unkno wn) date) unknown) (unknown) (no (unknown) (unknown) Orders: (units (unkno wn) date) unknown) (unknown) (no (unknown) (unknown) Orientation: (units (u nknown) date) oriented to person, unknown) place and time. Mood / Affect: calm (unknown) (no (unknown) (unknown) Osteoarthritis (units (unknown) date) type: primary unknown) Laterality: bilateral Qualified Code(s): (unknown) (no (unknown) (unknown) Oxygen Delivery (units (unknown) date) Method room air unknown) (unknown) (no (unknown) (unknown) PFSH (units (unkno wn) date) unknown) (unknown) (no (unknown) (unknown) PROCEDURE: XR (units ( unknown) date) LUMBAR SPINE MIN 4V unknown) (unknown) (no (unknown) (unknown) Pain Scale (units (unk nown) date) unknown) (unknown) (no (unknown) (unknown) Pain Visit (units (unk nown) date) unknown) (unknown) (no (unknown) (unknown) Patient: (units (unkno wn) date) Kristie Lantigua MR#: unknown) [id number] (unknown) (no (unknown) (unknown) Performing (units (unk nown) date) Provider: José Miguel unknown) DO [place] (unknown) (no (unknown) (unknown) [place], borderline (units (unknown) date) diabetes, right unknown) upper extremity DVT bacillic vein (unknown) (no (unknown) (unknown) Plan (units (unkno wn) date) unknown) (unknown) (no (unknown) (unknown) Position Sitting (units (unknown) date) unknown) (unknown) (no (unknown) (unknown) [facility] (units (unknown) date) [facility].? Otherwise unknown) she reports feeling well maintain the (unknown) (no (unknown) (unknown) Pulse 63 (units (unkno wn) date) unknown) (unknown) (no (unknown) (unknown) Pulse Oximetry (%) (units (unknown) date) 97 unknown) (unknown) (no (unknown) (unknown) Pulse Source (units (u nknown) date) Monitor unknown) (unknown) (no (unknown) (unknown) QWEEK 02/17/22 (units (unknown) date) [History Confirmed unknown) 02/17/22] (unknown) (no (unknown) (unknown) Qualifiers: (units (un known) date) unknown) (unknown) (no (unknown) (unknown) ROS Narrative (units ( unknown) date) unknown) (unknown) (no (unknown) (unknown) ROS Narrative: (units (unknown) date) unknown) (unknown) (no (unknown) (unknown) ROS (units (unkno wn) date) unknown) (unknown) (no (unknown) (unknown) Reason For Visit (units (unknown) date) unknown) (unknown) (no (unknown) (unknown) Sensation: (units (unk nown) date) Subjective normal unknown) distal sensation bilaterally (unknown) (no (unknown) (unknown) Sensory peripheral (units (unknown) date) neuropathy unknown) (unknown) (no (unknown) (unknown) She additionally (units (unknown) date) reports progression unknown) of low back pain and right lower extremity (unknown) (no (unknown) (unknown) She does find this (units (unknown) date) mildly beneficial unknown) reducing her arthritic knees.? She has (unknown) (no (unknown) (unknown) Signed By: (units (unk nown) date) <Electronically unknown) signed by José Miguel Larry D.O.> (unknown) (no (unknown) (unknown) Signed (units (unkno wn) date) unknown) (unknown) (no (unknown) (unknown) Laurel returns to (units (unknown) date) clinic today unknown) secondary do not multiple musculoskeletal (unknown) (no (unknown) (unknown) Smoking Status: (units (unknown) date) Never smoker unknown) (unknown) (no (unknown) (unknown) Soft tissues: No (units (unknown) date) joint effusion. No unknown) suspicious soft tissue calcifications. (unknown) (no (unknown) (unknown) Soft tissues: (units ( unknown) date) Overlying bowel gas unknown) pattern is normal. No suspicious soft tissue (unknown) (no (unknown) (unknown) Soft tissues: Trace (unit s (unknown) date) joint effusion. No unknown) suspicious soft tissue calcifications. (unknown) (no (unknown) (unknown) Status: Acute (units ( unknown) date) unknown) (unknown) (no (unknown) (unknown) Status: Chronic (units (unknown) date) unknown) (unknown) (no (unknown) (unknown) Strength LE: 5/5 (units (unknown) date) EHL, tibialis unknown) anterior, plantar flexion (unknown) (no (unknown) (unknown) Surgical History (units (unknown) date) (Reviewed 05/03/22 @ unknown) 14:28 by José Miguel Larry DO) (unknown) (no (unknown) (unknown) Kristie and I (units (u nknown) date) discussed at length unknown) her underlying pathology with her bilateral (unknown) (no (unknown) (unknown) TECHNIQUE: 5 views (units (unknown) date) of the lumbar spine unknown) were acquired. (unknown) (no (unknown) (unknown) TERI with Dr. Boykin (units (unknown) date) at [facility].? She unknown) underwent bilateral Durolane injections on (unknown) (no (unknown) (unknown) Temp 98 F (units (unkn own) date) unknown) (unknown) (no (unknown) (unknown) Temp Source (units (un known) date) Temporal Artery Scan unknown) (unknown) (no (unknown) (unknown) [facility] (unit s (unknown) date) Management unknown) (unknown) (no (unknown) (unknown) The patient (units (un known) date) tolerated the unknown) procedure without signs or symptoms of complications (unknown) (no (unknown) (unknown) The right knee was (units (unknown) date) prepped in the unknown) superior anterior fashion with suprapatellar (unknown) (no (unknown) (unknown) This note may have (units (unknown) date) been all or unknown) partially generated using voice recognition (unknown) (no (unknown) (unknown) Tobacco + Substance (unit s (unknown) date) Use unknown) (unknown) (no (unknown) (unknown) Tobacco Status (units (unknown) date) unknown) (unknown) (no (unknown) (unknown) Vasculature: <2 (units (unknown) date) second capillary unknown) bilaterally (unknown) (no (unknown) (unknown) Visit Reasons: (units (unknown) date) BILATERAL KNEE'S, unknown) X-ray follow-up (unknown) (no (unknown) (unknown) Vitals (units (unkno wn) date) unknown) (unknown) (no (unknown) (unknown) We reviewed her (units (unknown) date) updated x-ray unknown) studies and elected to repeat Durolane injection (unknown) (no (unknown) (unknown) Weight 245 lb (units ( unknown) date) unknown) (unknown) (no (unknown) (unknown) [History Confirmed (units (unknown) date) 02/17/22] unknown) (unknown) (no (unknown) (unknown) [History] (units (unkn own) date) unknown) (unknown) (no (unknown) (unknown) anastrozole Adverse (unit s (unknown) date) Reaction (Severe, unknown) Verified 05/03/22 14:07) (unknown) (no (unknown) (unknown) anterolisthesis of (units (unknown) date) L4 on unknown) (unknown) (no (unknown) (unknown) apixaban 2.5 mg (units (unknown) date) tablet (Eliquis) 2.5 unknown) mg PO DAILY 02/17/22 [History Confirmed (unknown) (no (unknown) (unknown) approach from a (units (unknown) date) lateral perspective. unknown) Ultrasound guidance was used to identify (unknown) (no (unknown) (unknown) ascorbic acid (units ( unknown) date) (vitamin C) 500 mg unknown) capsule mg PO 10/10/19 [History Confirmed (unknown) (no (unknown) (unknown) aspiration ampule (units (unknown) date) of Duralane was unknown) administered without incident. Attention was (unknown) (no (unknown) (unknown) ay occur. (units (unkn own) date) Occasional unknown) wrong-word or 'sound-alike' substitutions may have (unknown) (no (unknown) (unknown) bleeding, (units (unkn own) date) infection, allergic unknown) reaction, nerve injury, stroke, paralysis and (unknown) (no (unknown) (unknown) bone scan) may be (units (unknown) date) helpful for further unknown) assessment. (unknown) (no (unknown) (unknown) buspirone 10 mg (units (unknown) date) tablet 10 mg PO unknown) DAILY 05/03/22 [History] (unknown) (no (unknown) (unknown) but not limited to (units (unknown) date) bleeding, infection, unknown) allergic reaction, nerve injury, stroke, (unknown) (no (unknown) (unknown) calcifications. (units (unknown) date) unknown) (unknown) (no (unknown) (unknown) capsaicin-methyl (units (unknown) date) salicylate-menthol unknown) 0.025 %-30 %-10 % lotion (Dendracin) each (unknown) (no (unknown) (unknown) celecoxib 100 mg PO (unit s (unknown) date) BID unknown) (unknown) (no (unknown) (unknown) celecoxib 100 mg (units (unknown) date) capsule 100 mg PO unknown) BID 05/03/22 [History Confirmed 05/03/22] (unknown) (no (unknown) (unknown) chemotherapy. (units ( unknown) date) unknown) (unknown) (no (unknown) (unknown) cholecalciferol (units (unknown) date) (vitamin D3) 50 mcg unknown) (2,000 unit) capsule 50 mcg PO DAILY (unknown) (no (unknown) (unknown) chondrocalcinosis. (units (unknown) date) unknown) (unknown) (no (unknown) (unknown) codeine Adverse (units (unknown) date) Reaction (Severe, unknown) Verified 05/03/22 14:07) (unknown) (no (unknown) (unknown) compartment and (units (unknown) date) unknown) (unknown) (no (unknown) (unknown) complaints.? She (units (unknown) date) was last seen unknown) secondary to bilateral knee DJD as well as right (unknown) (no (unknown) (unknown) compression (units (un known) date) fractures. No unknown) suspicious bony lesions. Mild multilevel endplate (unknown) (no (unknown) (unknown) and the (units ( unknown) date) patient elected to unknown) proceed. Informed consent was obtained today (unknown) (no (unknown) (unknown) developed a sensory (unit s (unknown) date) peripheral unknown) neuropathy as well secondary to the (unknown) (no (unknown) (unknown) did review the (units (unknown) date) risks of the above unknown) stated procedure including not limited to (unknown) (no (unknown) (unknown) diphenoxylate-atrop (unit s (unknown) date) ine 2.5 mg-0.025 mg unknown) tablet 1 tab PO BEDTIME 05/03/22 (unknown) (no (unknown) (unknown) dismissal in (units (u nknown) date) excellent condition unknown) under own power. She was given a post (unknown) (no (unknown) (unknown) dizziness (units (unkn own) date) unknown) (unknown) (no (unknown) (unknown) dizziness, SOB, (units (unknown) date) Headache unknown) (unknown) (no (unknown) (unknown) doxepin 25 mg (units ( unknown) date) capsule 25 mg PO unknown) BEDTIME 05/03/22 [History] (unknown) (no (unknown) (unknown) dulaglutide 0.75 (units (unknown) date) mg/0.5 mL unknown) subcutaneous pen injector (Trulicity) 0.75 mg SUBCUT (unknown) (no (unknown) (unknown) for (units (unkno wn) date) unknown) (unknown) (no (unknown) (unknown) formation and disc (units (unknown) date) space narrowing, unknown) worst at L1-L2 and L2-L3. Facet hypertrophy (unknown) (no (unknown) (unknown) found very positive (units (unknown) date) affect with the use unknown) of Celebrex in the past as well.? We did (unknown) (no (unknown) (unknown) furosemide [From (units (unknown) date) Lasix] Adverse unknown) Reaction (Severe, Verified 05/03/22 14:07) (unknown) (no (unknown) (unknown) gabapentin Adverse (units (unknown) date) Reaction (Severe, unknown) Verified 05/03/22 14:07) (unknown) (no (unknown) (unknown) has been fighting (units (unknown) date) metastatic breast unknown) cancer over the last year and is now in (unknown) (no (unknown) (unknown) have occurred. If (units (unknown) date) there are any unknown) questions, please contact the Medical Records (unknown) (no (unknown) (unknown) her current regimen (units (unknown) date) and she is currently unknown) on prednisone 5 mg tablets p.o. q.day.? (unknown) (no (unknown) (unknown) hyaluronate sodium, (unit s (unknown) date) stabilized unknown) (unknown) (no (unknown) (unknown) hydromorphone 2 mg (units (unknown) date) tablet 2 mg PO Q4-6H unknown) PRN 02/17/22 [History Confirmed (unknown) (no (unknown) (unknown) hydroxyzine Allergy (unit s (unknown) date) (Verified 05/03/22 unknown) 14:07) (unknown) (no (unknown) (unknown) hyperparathyroidism (unit s (unknown) date) . unknown) (unknown) (no (unknown) (unknown) injection (units (unkn own) date) instruction sheet unknown) pain log accordingly. (unknown) (no (unknown) (unknown) intravenous drug (units (unknown) date) use, sustained unknown) glucocorticoid use, osteoporosis, or a focal (unknown) (no (unknown) (unknown) introduced and (units (unknown) date) advanced into the unknown) intra-articular space. After negative (unknown) (no (unknown) (unknown) joint , moderate at (unit s (unknown) date) unknown) (unknown) (no (unknown) (unknown) joint. (units (unkno wn) date) unknown) (unknown) (no (unknown) (unknown) knee DJD as well as (unit s (unknown) date) her lumbar unknown) stenosis.? She is currently in the middle of (unknown) (no (unknown) (unknown) levothyroxine 25 (units (unknown) date) mcg tablet 25 mcg PO unknown) DAILY 02/17/22 [History Confirmed (unknown) (no (unknown) (unknown) lidocaine-prilocain (unit s (unknown) date) e 2.5 %-2.5 % unknown) topical cream 1 applic topical ONCE 02/17/22 (unknown) (no (unknown) (unknown) lorazepam Allergy (units (unknown) date) (Verified 05/03/22 unknown) 14:07) (unknown) (no (unknown) (unknown) meclizine Allergy (units (unknown) date) (Verified 05/03/22 unknown) 14:07) (unknown) (no (unknown) (unknown) metformin 1,000 mg (units (unknown) date) tablet 1,000 mg PO unknown) DAILY 05/03/22 [History] (unknown) (no (unknown) (unknown) metoprolol tartrate (unit s (unknown) date) 50 mg tablet 50 mg unknown) PO BID 10/10/19 [History Confirmed (unknown) (no (unknown) (unknown) moderate to severe (units (unknown) date) unknown) (unknown) (no (unknown) (unknown) multivitamin 1 tab (units (unknown) date) PO DAILY 10/10/19 unknown) [History Confirmed 02/17/22] (unknown) (no (unknown) (unknown) nausea and rash (units (unknown) date) unknown) (unknown) (no (unknown) (unknown) nausea (units (unkno wn) date) unknown) (unknown) (no (unknown) (unknown) neurological (units (u nknown) date) deficit with unknown) progressive or disabling symptoms. (unknown) (no (unknown) (unknown) noted significant (units (unknown) date) relief prior to unknown) dismissal in excellent condition of their own (unknown) (no (unknown) (unknown) occurred due to the (unit s (unknown) date) inherent limitations unknown) of voice recognition software. Please (unknown) (no (unknown) (unknown) or (units (unkno wn) date) immunosuppressive unknown) therapy, previous or current cancer diagnosis, history of (unknown) (no (unknown) (unknown) osteophyte (units (unk nown) date) unknown) (unknown) (no (unknown) (unknown) paralysis, and (units (unknown) date) and they unknown) elected to proceed. Informed consent was obtained (unknown) (no (unknown) (unknown) patella. (units (unkno wn) date) Degenerative joint unknown) disease is present, severe at the patellofemoral (unknown) (no (unknown) (unknown) patellofemoral (units (unknown) date) compartment.. unknown) (unknown) (no (unknown) (unknown) pathology persist, (units (unknown) date) further assessment unknown) with repeat, or advanced imaging (e.g., (unknown) (no (unknown) (unknown) power. (units (unkno wn) date) unknown) (unknown) (no (unknown) (unknown) pregabalin 150 mg (units (unknown) date) capsule 150 mg PO unknown) TID 02/17/22 [History Confirmed 02/17/22] (unknown) (no (unknown) (unknown) previous history of (unit s (unknown) date) a lumbar unknown) decompressive laminectomy she believes in 2017 at (unknown) (no (unknown) (unknown) procedure at length (unit s (unknown) date) and verbal consent unknown) was obtained today, As oral consent, we (unknown) (no (unknown) (unknown) procedure note for (units (unknown) date) full details. She unknown) was afford a prominent relief prior to (unknown) (no (unknown) (unknown) radicular (units (unkn own) date) features.? She unknown) denies any specific injury on his but does have a (unknown) (no (unknown) (unknown) rash (units (unkno wn) date) unknown) (unknown) (no (unknown) (unknown) rash/redness (units (u nknown) date) unknown) (unknown) (no (unknown) (unknown) read the note (units ( unknown) date) carefully and unknown) recognize, using context, where these substitutions (unknown) (no (unknown) (unknown) review her (units (unk nown) date) underlying unknown) pathologies and elected to proceed with updated x-ray (unknown) (no (unknown) (unknown) rosuvastatin 20 mg (units (unknown) date) tablet 20 mg PO unknown) DAILY 02/17/22 [History Confirmed 02/17/22] (unknown) (no (unknown) (unknown) sertraline 100 mg (units (unknown) date) tablet 150 mg PO unknown) DAILY 10/10/19 [History Confirmed 02/17/22] (unknown) (no (unknown) (unknown) severe hip DJD.? (units (unknown) date) She subsequently unknown) underwent total hip arthroplasty performed on (unknown) (no (unknown) (unknown) silver Adverse (units (unknown) date) Reaction (Severe, unknown) Verified 05/03/22 14:07) (unknown) (no (unknown) (unknown) since her last (units (unknown) date) injection was unknown) 02/14/2019. We did review the above-stated (unknown) (no (unknown) (unknown) sleepy (units (unkno wn) date) unknown) (unknown) (no (unknown) (unknown) software. Although (units (unknown) date) every effort is made unknown) to edit content, bead supervisor errors m (unknown) (no (unknown) (unknown) studies of (units (unk nown) date) 02/14/2019.? She did unknown) respond very well at that time to bilateral (unknown) (no (unknown) (unknown) studies of her (units (unknown) date) bilateral knees as unknown) she had moderate knee DJD noticed on x-ray (unknown) (no (unknown) (unknown) subluxation of (units (unknown) date) unknown) (unknown) (no (unknown) (unknown) tagaderm bandage (units (unknown) date) Allergy (Uncoded unknown) 05/03/22 14:07) (unknown) (no (unknown) (unknown) that this is been (units (unknown) date) very effective in unknown) treating her cancer but she reports she has (unknown) (no (unknown) (unknown) the anterior (units (u nknown) date) articular space. A unknown) 25 gauge needle with 1% lidocaine solution was (unknown) (no (unknown) (unknown) the injection (units ( unknown) date) procedure for unknown) complete details. (unknown) (no (unknown) (unknown) the medial (units (unk nown) date) femorotibial joint, unknown) mild at the lateral femorotibial joint. There is (unknown) (no (unknown) (unknown) the mid and lower (units (unknown) date) lumbar spine. unknown) (unknown) (no (unknown) (unknown) then refocused to (units (unknown) date) the left knee with unknown) the identical procedure was performed. (unknown) (no (unknown) (unknown) throughout (units (unk nown) date) unknown) (unknown) (no (unknown) (unknown) time. (units (unkno wn) date) unknown) (unknown) (no (unknown) (unknown) today without (units ( unknown) date) guarantees or unknown) assurances of complete relief applied. Please see (unknown) (no (unknown) (unknown) topical 10/10/19 (units (unknown) date) [History Confirmed unknown) 02/17/22] (unknown) (no (unknown) (unknown) treatment regarding (unit s (unknown) date) her breast CA with unknown) metastasis to the liver.? We did discuss (unknown) (no (unknown) (unknown) treatment that has (units (unknown) date) included mastectomy unknown) as well as chemotherapy.? She does report (unknown) (no (unknown) (unknown) tricompartmental (units (unknown) date) knee joint unknown) degeneration, most most in the lateral femorotibial (unknown) (no (unknown) (unknown) used for (units (unkno wn) date) anesthetic. unknown) Subsequently then a 22 gauge needle was atraumatically (unknown) (no (unknown) (unknown) vertebral body (units (unknown) date) unknown) (unknown) (no (unknown) (unknown) with the (units (unkno wn) date) above-stated plan. unknown) (unknown) (no (unknown) (unknown) without guarantees (units (unknown) date) or assurances of unknown) complete relief applied. Please see the Social History date description facility 2022-05-03 00:00 Never smoked tobacco ([facility] Vital Signs date measurement value units 2022-05-03 00:00 BMI 39.5 kg/m2 2022-05-03 00:00 BP_diastolic 80 mmHg 2022-05-03 00:00 BP_systolic 128 mmHg 2022-05-03 00:00 heart_rate 63 /min 2022-05-03 00:00 height_metric 167.64 cm 2022-05-03 00:00 height_standard 66 in 2022-05-03 00:00 o2_saturation 97 % 2022-05-03 00:00 temperature_metric 36.67 C 2022-05-03 00:00 temperature_standard 98 F 2022-05-03 00:00 weight_metric 111.13 kg 2022-05-03 00:00 weight_standard 245 lb
--- NOTE | 2022-05-25 16:26 | XRAY Report ---
PROCEDURE: Finger(s) LT INDICATIONS: fall and injured left thumb TECHNIQUE: AP hand, 3 views of the first finger(s) acquired. COMPARISON: None FINDINGS: Bones: There is a mildly displaced comminuted fracture within the proximal and mid distal phalanx of the first digit. Fracture lucencies extend to the articular surface. No suspicious bony lesions. Soft tissues: No suspicious soft tissue calcifications. IMPRESSION: Mildly displaced intra-articular comminuted distal first phalanx fracture. Reviewed by: Tracie Jama MD on 05/25/2022 4:25 PM [facility] Approved by: Tracie Jama MD on 05/25/2022 4:25 PM [facility] Station ID: [id number]
--- NOTE | 2022-05-25 16:27 | XRAY Report ---
PROCEDURE: Knee 3 View LT INDICATIONS: fall onto left knee TECHNIQUE: 3 views of the left knee(s) were acquired. COMPARISON: None. FINDINGS: Bones: The patella is poorly visualized secondary to positioning. There is prominent lateral subluxa tion as well as poorly visualized linear opacity nondisplaced along the medial aspect. No suspicious bony lesions. Moderate medial and patellofemoral compartment narrowing. Chondrocalcinosis is presen t. Minimal lateral compartment narrowing. Soft tissues: No joint effusion. No suspicious soft tissue calcifications. IMPRESSION: Poor visualization of the patella. However, nondisplaced fracture cannot be excluded. Add itional patellar views are recommended. Reviewed by: Tracie Jama MD on 05/25/2022 4:26 PM PST Approved by: Tracie Jama MD on 05/25/2022 4:26 PM PST Station ID: [id number]
--- NOTE | 2022-05-25 16:59 | CT Report ---
PROCEDURE: HEAD WO INDICATIONS: fall, on Eliquis TECHNIQUE: Noncontrast 4.5 mm thick angled axial sections acquired from the foramen magnum to the vertex. For r adiation dose reduction, the following was used: automated exposure control, adjustment of mA and/or kV according to patient size. COMPARISON: None. FINDINGS: Image quality: Excellent. CSF spaces: Basal cisterns are patent. No extra-axial fluid collections. Ventricles are normal in size and shape. Brain: No midline shift. No intracranial masses or hemorrhage. [place]-white matter interface is norm al. Skull and face: Calvarium and visualized facial bones are intact, without suspicious lesions. Sinuses: Left maxillary sinus opacification. Mild right measures 10 mm mucosal thickening. Mastoids a re clear. IMPRESSION: 1. No acute intracranial abnormalities. 2. Left maxillary sinus disease. Reviewed by: Breana Lerma MD on 05/25/2022 4:58 PM PST Approved by: Breana Lerma MD on 05/25/2022 4:58 PM PST Station ID: [id number]
--- NOTE | 2022-05-25 17:29 | CT Report ---
PROCEDURE: LUMBAR SPINE WO INDICATIONS: fall, low back pain TECHNIQUE: Noncontrast 3 mm thick sections acquired from the T12 level to the sacrum. Sagittal and coronal refo rmats were constructed. For radiation dose reduction, the following was used: automated exposure co ntrol, adjustment of mA and/or kV according to patient size. COMPARISON: CT abdomen and pelvis with, 05/04/2022. FINDINGS: Image quality: Excellent. Bones: There is grade 1 decrease of L4 on L5, and trace retrolisthesis of L1 on L2. No acute verteb ral body compression fractures. No suspicious lytic or blastic bony lesions. Central spinal caliber is of normal overall caliber. No pars defects. Degenerative disc disease is present, severe at L5- S1, moderate at T11-T12, T12-L1, L1-L2, and at other levels. There is severe facet arthropathy at L4- L5 and L5-S1. Soft tissues: No retroperitoneal masses or hematomas. Visualized aorta is normal in caliber. There is a 1.3 cm right renal artery aneurysm. There are gallstones. IMPRESSION: 1. No acute osseous abnormalities. 2. Cholelithiasis. 3. 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 Reviewed by: Breana Lerma MD on 05/25/2022 5:28 PM PST Approved by: Breana Lerma MD on 05/25/2022 5:28 PM PST Station ID: [id number]
[2022-05-25 18:04] VITALS: BP 130/52
== END 2022-05-25 19:17 | disposition home or self-care (01) ==
LOC: EDUNIT# → ED 14:29
DX: S62.522A Displaced fracture of distal phalanx of left thumb, initial encounter for closed fracture (principal); S80.02XA Contusion of left knee, initial encounter; W01.0XXA Fall on same level from slipping, tripping and stumbling without subsequent striking against object, initial encounter; Y92.512 Supermarket, store or market as the place of occurrence of the external cause
CPT/HCPCS: 70450; 72131; 73140; 73562; 96372; 99283; 99284; J1170

== ENCOUNTER 2022-07-03 15:18 | Outpatient (CLI) | payer MEDICARE, MEDICAID ==
--- NOTE | 2022-07-03 18:40 | XRAY Report ---
PROCEDURE: Knee 4 View LT INDICATIONS: KNEE PAIN LEFT ACUTE TECHNIQUE: 3 views of the left knee were acquired. COMPARISON: None. FINDINGS: Bones: No acute fractures or dislocations. No suspicious bony lesions. Moderate to severe joint s pace narrowing is seen at the medial femorotibial compartment with subchondral sclerosis and marginal osteophyte formation. There is mild to moderate joint space narrowing of the lateral compartment and severe narrowing of the patellofemoral compartment. A small ossification adjacent to the lateral pat suleiman may be the sequela of remote prior trauma or congenital variation. Soft tissues: No joint effusion. No suspicious soft tissue calcifications. 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 Reviewed by: Mic Gentile MD on 07/03/2022 6:39 PM PDT Approved by: Mic Gentile MD on 07/03/2022 6:39 PM PDT Station ID: [id number]
== END 2022-07-03 15:19 | disposition home or self-care (01) ==
LOC: DI 15:18
PROVIDERS: ATTEND Internal Medicine
DX: M17.12 Unilateral primary osteoarthritis, left knee (principal)

== ENCOUNTER 2022-07-12 08:00 | Outpatient (CLI) | payer MEDICARE, MEDICAID ==
--- NOTE | 2022-07-13 06:55 | XRAY Report ---
PROCEDURE: Finger(s) LT INDICATIONS: LEFT THUMB FRACTURE TECHNIQUE: AP hand, 2 views of the first finger(s) acquired. COMPARISON: X-ray left first finger, 05/25/2022. FINDINGS: Bones: Comminuted fracture at the base of the first distal phalanx with intra-articular extension an d mild angulation. Alignment is stable. Degenerative joint disease in wrist and hand, most severe at the first carpometacarpal joint. Soft tissues: No suspicious soft tissue calcifications or masses. IMPRESSION: Healing first distal phalangeal base fracture. Reviewed by: Breana Lerma MD on 07/13/2022 6:53 AM PDT Approved by: Breana Lerma MD on 07/13/2022 6:53 AM PDT Station ID: [id number]
== END 2022-07-12 23:59 | disposition home or self-care (01) ==
LOC: DI.WOS 08:00
PROVIDERS: ATTEND Physician Assistant Surgical
DX: S62.502D Fracture of unspecified phalanx of left thumb, subsequent encounter for fracture with routine healing (principal)

== ENCOUNTER 2022-07-26 14:16 | Outpatient (CLI) | payer MEDICARE, MEDICAID ==
--- NOTE | 2022-07-26 17:50 | MRI Report ---
PROCEDURE: KNEE WO - LT INDICATIONS: LEFT KNEE PAIN TECHNIQUE: Noncontrast sagittal PD fast spin echo and T2 fast spin echo with fat saturation, sagittal 3-D gradie nt sequence with fat saturation; coronal T1 spin echo and PD fast spin echo with fat saturation, and axial PD fast spin echo with fat saturation through the knee. COMPARISON: Left knee radiograph dated 07/03/2022. FINDINGS: Image quality: Excellent. Menisci: Complex oblique tear involving posterior horn of medial meniscus is seen extending to both s uperior and inferior articulating surfaces. Complex oblique tear involving anterior horn of lateral m eniscus is also seen extending to both superior and inferior articulating surfaces. The meniscal root ligaments appear intact. Cruciate ligaments: The anterior cruciate ligament is thickened with intrasubstance T2 hyperintense signal. The posterior cruciate ligament is intact. Medial structures: The medial collateral ligament appears thickened with intrasubstance T2 hyperinte nse signal at its medial femoral condylar insertion. The posterior oblique ligament, semimembranosus tendon insertions, and oblique popliteal ligament, and meniscocapsular junction appear intact. Visua lized portions of the pes anserinus tendons appear normal. No abnormal bursal fluid. Lateral structures: The lateral collateral ligament, long and short heads of the biceps femoris tend on appear intact. The popliteus tendon appears normal; the popliteofibular ligament appears intact. Iliotibial band appears normal. Anterior structures: Nonspecific mild soft tissue edema lines or aspect of patella and patella tendo n is seen. The quadriceps and patellar tendons appear intact. Patellar alignment is normal. No femo ral trochlear dysplasia or ventral trochlear prominence. No edema in the infrapatellar fat pad. Bones and cartilage: No fracture or dislocation. Moderate to severe tricompartmental osteoarthritis and chondromalacia is seen most notably in medial femoral tibial compartment with near complete loss of joint space, extensive subchondral sclerosis and prominent marginal osteophyte formation. Joint space: There is moderate joint effusion. There is a 2 x 2 by 2.7 cm Medina's cyst. Normal appe aring synovial plicae are incidentally noted. IMPRESSION: 1. Complex oblique tear involving posterior horn of medial meniscus extending to both superior and in ferior articulating surfaces. Complex tear also seen involving anterior horn of lateral meniscus exte nding to both superior and inferior articulating surfaces. 2. Low-grade intrasubstance partial thickness tear involving anterior cruciate ligament. No ACL ruptu re. The PCL is intact. 3. Moderate to severe tricompartmental osteoarthritis and chondromalacia most notably in medial femor al tibial compartment. No fracture or dislocation. Moderate joint effusion and a small Medina's cyst. No gross loose bodies. Reviewed by: Artie Strauss MD on 07/26/2022 5:49 PM PDT Approved by: Artie Strauss MD on 07/26/2022 5:49 PM PDT Station ID: [id number]
== END 2022-07-26 14:17 | disposition home or self-care (01) ==
LOC: DI 14:16
PROVIDERS: ATTEND Family Medicine
DX: S83.232A Complex tear of medial meniscus, current injury, left knee, initial encounter (principal); S83.272A Complex tear of lateral meniscus, current injury, left knee, initial encounter; S83.512A Sprain of anterior cruciate ligament of left knee, initial encounter; M17.12 Unilateral primary osteoarthritis, left knee; M25.462 Effusion, left knee; M71.22 Synovial cyst of popliteal space [Baker], left knee

== ENCOUNTER 2022-08-02 16:08 | Outpatient (CLI) | payer MEDICARE, MEDICAID ==
--- NOTE | 2022-08-02 16:51 | XRAY Report ---
PROCEDURE: Knee 1 View BILAT INDICATIONS: LEFT KNEE PAIN, BILAT AP FOR COMP TECHNIQUE: One standing view of each knee was obtained. COMPARISON: None. FINDINGS: Bones: No fractures or dislocations. No suspicious bony lesions. There is severe severe lateral com partment narrowing on the right and severe medial compartment narrowing on the left. Moderate tricomp artmental periareolar articular osteophyte formation. Soft tissues: No knee joint effusion. No suspicious soft tissue calcifications or masses. IMPRESSION: 1. Osteoarthritis with joint space narrowing as above. 2. No acute fracture. No osseous lesion. If symptoms and/or clinical suspicion for pathology continue , further assessment with repeat plain films, or advanced imaging (e.g., CT, MRI, or bone scan) is re commended for further assessment. Reviewed by: Sunil Graf MD on 08/02/2022 4:50 PM PDT Approved by: Sunil Graf MD on 08/02/2022 4:50 PM PDT Station ID: [id number]
== END 2022-08-02 16:09 | disposition home or self-care (01) ==
LOC: DI.WOS 16:08
PROVIDERS: ATTEND Orthopaedic Surgery
DX: M17.0 Bilateral primary osteoarthritis of knee (principal)

== ENCOUNTER 2022-08-04 17:29 | Emergency (ER) | payer MEDICARE, MEDICAID ==
[2022-08-04] MEDS ORDERED: TETANUS/DIPHTHERIA/PERTUSSIS 0.5 ML SYRINGE IM ONE (18:05)
[2022-08-04] MEDS ORDERED: lidocaine 1% 20 ML MDV SUBQ ONE (18:07)
--- NOTE | 2022-08-04 18:07 | ED Physician Documentation ---
History of Present Illness - Stated complaint Stated Complaint: LT BIG TOE ACCIDENT - Chief complaint Chief Complaint: Trauma Ext - Additonal information Additional information: 67-year-old female presents emergency department for evaluation of acute left great toe/toenail injury. She is working in the garden and accidentally stubbed her toe on a retaining wall. She does have neuropathy secondary to history of receiving chemotherapy and as such did not think much of it until she looked down and saw that her sandal was filling with blood. 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 Currently undergoing chemotherapy for liver cancer. Does have a remote history of breast cancer as well. Review of Systems Musculoskeletal: reports: Joint pain PD PAST MEDICAL HISTORY - Past Medical History Cardiovascular: Hypertension, High cholesterol, Peripheral Vascular Disease, Murmur Respiratory: Sleep apnea, CPAP use Neuro: Headaches, Peripheral neuropathy, Fainting Endocrine/Autoimmune: Type 2 diabetes GI: GERD, Cholelithiasis INSOLE BOTTOM FILLER: Miscarriage(s), Breast cancer : None HEENT: Chronic vision loss, Chronic sinusitis Psych: Anxiety Musculoskeletal: Osteoarthritis Derm: None, Other - Past Surgical History Past Surgical History: Yes Ortho: Hip replacement, Spine surgery /INSOLE BOTTOM FILLER: Tubal ligation, Other - Present Medications Home Medications: Ambulatory Orders Medication Instructions Recorded Confirmed Sertraline HCl 150 mg PO DAILY 06/27/18 05/25/22 metFORMIN [Glucophage] 500 mg PO BIDWM 06/27/18 05/25/22 Cholecalciferol (Vitamin D3) 2,000 unit PO DAILY 05/10/19 05/18/22 [Vitamin D3] Multivitamin [Multivitamins] 1 tab PO DAILY 05/10/19 05/25/22 Vitamin B Complex/Folic Acid 1 tab PO DAILY 05/10/19 05/18/22 [Vitamin B Complex Tablet] Levothyroxine Sodium [Levoxyl] 25 mcg PO QDAC 04/16/21 05/25/22 Rosuvastatin Calcium [Crestor] 20 mg PO DAILY 04/16/21 05/25/22 Dulaglutide [Trulicity] 0.75 mg SQ UD 11/10/21 05/25/22 Prochlorperazine Maleate 10 mg PO Q6HR PRN 12/22/21 05/18/22 [Compazine] Loperamide [Imodium] 2 mg PO ONCE PRN MDD 8 CAPS (16 MG) 12/24/21 05/18/22 Magic Mouthwash 5 ml PO RTQ4H 12/24/21 05/18/22 Metoprolol Tartrate [Lopressor] 50 mg PO BID 12/24/21 05/25/22 Apixaban [Eliquis] 2.5 mg PO BID 01/05/22 05/25/22 Lidocaine/Prilocain 2.5% Cream TOP PRN 01/05/22 [Emla 2.5% Cream] Celecoxib [CeleBREX] 100 mg PO BID 03/09/22 05/18/22 Clobetasol 0.05% Oint [Temovate 1 applic TOP BID PRN 03/23/22 05/18/22 0.05% Oint] busPIRone [Buspar] 15 mg PO DAILY 04/20/22 05/25/22 Pregabalin [Lyrica] 150 mg PO DAILY 05/18/22 05/25/22 cephALEXin [Keflex] 500 mg PO Q6H #28 cap 08/04/22 - Allergies Allergies/Adverse Reactions: Allergies Allergy/AdvReac Type Severity Reaction Status Date / Time adhesive Allergy Unknown Verified 08/04/22 17:36 anastrozole Allergy Unknown Verified 08/04/22 17:36 hydroxyzine Allergy Itching Verified 08/04/22 17:36 lorazepam Allergy Emesis Verified 08/04/22 17:36 meclizine Allergy Emesis Verified 08/04/22 17:36 silver Allergy Unknown Verified 08/04/22 17:36 [From Tegaderm AG Mesh] codeine AdvReac Nausea Verified 08/04/22 17:36 gabapentin AdvReac Dizziness Verified 08/04/22 17:36 - Social History Does the pt smoke?: No Smoking Status: Never smoker Does the pt drink ETOH?: No Does the pt have substance abuse?: No - Immunizations Immunizations are current?: Yes - POLST Patient has POLST: No POLST Status: Full Code PD ED PE EXPANDED - Extremities Extremities: Left toe(s) (Left great toe is swollen and mildly ecchymotic distally. The great nail is grossly ingrown. Quite tender to palpation of the proximal nailbed. nail well adhered to bed. Bleeding appears to be slowed at this time. 2+ DP pulse.) Results - Vitals Vitals: Vital Signs - 24 hr 08/04/22 17:33 Temperature 36.8 C Heart Rate 66 Respiratory 20 Rate Blood Pressure 134/63 H O2 Saturation 96 Oxygen O2 Source Room air - Rads (name of study) left toes Relevant Findings:: EMP independent interpretation of test (No acute fracture or dislocation) PD Medical Decision Making - ED course Complexity details: reviewed results, considered differential, d/w patient ED course: 67-year-old female presents to the emergency department for evaluation of left great toe pain. She stubbed her toe on the retaining wall in her garden. She does have significant neuropathy in her feet due to history of receiving chemotherapy. On exam her feet were quite dirty mostly from the garden. She has grossly ingrown nails throughout though. They are hypertrophic as well. In order to properly evaluate the nail I did and at this size it with 1% lidocaine to achieve a digital block. Subsequently a x-ray was obtained and per my interpretation no fractures are seen. Once the toe and the nail were properly cleansed I was able to evaluated and found that it was well seated to the nailbed. There did appear to be some degree of subungual hematoma. I did trephinate the nail using electrocautery but no blood came from underneath the nail. Given the history of diabetes, active chemotherapy she is at high risk for infection in this nail and toe and as such she will be started on Keflex antibiotics prophylactically. The usual emergent return precautions for worsening symptoms were discussed. Departure - Departure Disposition: 01 Home, Self Care Clinical Impression: Contusion of great toe of left foot Qualifiers: Encounter type: initial encounter Damage to nail status: without damage Qualified Code(s): S90.112A - Contusion of left great toe without damage to nail, initial encounter Condition: Stable Record reviewed to determine appropriate education?: Yes Prescriptions: cephALEXin [Keflex] 500 mg PO Q6H #28 cap Comments: Kristie you contused or bruised your left great toe. My interpretation of the x- ray is that there is no fracture. After we are able to numb the toe up and clean it up the nail appears to be attached to the nailbed fairly well. We did try trephinating it to see if we could remove some of the blood underneath it but no blood came out. At this time I would like you to gently wash the toe with warm soap and water 2- 3 times a day and then apply simple antibiotic ointment to the distal tip and the abrasion. The because you are high risk for infection we are going to start you on a short course of cephalexin/Keflex and antibiotic. This dose has been sent to the [facility] in [place]. If you find that you have increasing pain, fevers, milky drainage or red streaking or any concerns of infection then please return to the ER for second evaluation
[2022-08-04] MEDS ORDERED: cephALEXin 250 MG CAPSULE PO STA (18:46)
[2022-08-04] MEDS ORDERED: BACITRACIN ZINC OINT 1 PACKET TOP STA (18:46)
--- NOTE | 2022-08-04 18:55 | XRAY Report ---
PROCEDURE: Toe(s) LT INDICATIONS: ? great toe fx TECHNIQUE: 3 views of the left great toe(s) acquired. COMPARISON: None FINDINGS: Bones: Degenerative changes of the metatarsophalangeal joints most pronounced over the first metatars ophalangeal joint. Subtle linear lucency at the base of the proximal phalanx of the left great toe. T here is overlying soft tissue swelling. There is also subtle cortical irregularity at the base of the great toe distal phalanx. No suspicious bony lesions. Soft tissues: No suspicious soft tissue densities. IMPRESSION: Possible nondisplaced fractures at the base of the left first toe distal phalanx as well as possible nondisplaced fracture of the base of the left great toe proximal phalanx. Recommend immobilization and repeat imaging in 10-14 days. Reviewed by: Walter Aguillon MD on 08/04/2022 6:54 PM PDT Approved by: Waletr Aguillon MD on 08/04/2022 6:54 PM PDT Station ID: [id number]
[2022-08-04 19:02] VITALS: BP 130/60
== END 2022-08-04 19:01 | disposition home or self-care (01) ==
LOC: ED 17:29
DX: S90.212A Contusion of left great toe with damage to nail, initial encounter (principal); S90.412A Abrasion, left great toe, initial encounter; W22.01XA Walked into wall, initial encounter; Y93.H2 Activity, gardening and landscaping; L60.0 Ingrowing nail; L60.2 Onychogryphosis; G62.0 Drug-induced polyneuropathy; T45.1X5A Adverse effect of antineoplastic and immunosuppressive drugs, initial encounter; E11.9 Type 2 diabetes mellitus without complications; C22.9 Malignant neoplasm of liver, not specified as primary or secondary; Z79.01 Long term (current) use of anticoagulants; Z79.84 Long term (current) use of oral hypoglycemic drugs; Z79.899 Other long term (current) drug therapy
CPT/HCPCS: 11740; 73660; 90471; 90715; 99283; A9270

== ENCOUNTER 2022-08-10 08:00 | Outpatient (CLI) | payer MEDICARE, MEDICAID ==
--- NOTE | 2022-08-10 15:14 | XRAY Report ---
PROCEDURE: Finger(s) LT INDICATIONS: LEFT THUMB FRACTURE TECHNIQUE: AP hand, 2 views of the first finger(s) acquired. COMPARISON: 07/12/2022. FINDINGS: Bones: Slight interval bone remodeling at the first distal phalanx base fracture. Interphalangeal an d first CMC joint space narrowing with associated osteophytosis, within normal limits for age. Soft tissues: No suspicious soft tissue calcifications or masses. IMPRESSION: Slight interval healing of the first distal phalanx base. Reviewed by: Johnson Matthews on 08/10/2022 3:13 PM PDT Approved by: Johnson Matthews on 08/10/2022 3:13 PM PDT Station ID: [id number]
== END 2022-08-10 23:59 | disposition home or self-care (01) ==
LOC: DI.WOS 08:00
PROVIDERS: ATTEND Physician Assistant Surgical
DX: S62.525D Nondisplaced fracture of distal phalanx of left thumb, subsequent encounter for fracture with routine healing (principal)

== ENCOUNTER 2022-08-26 17:13 | Outpatient (CLI) | payer MEDICARE, MEDICAID ==
--- NOTE | 2022-08-26 15:12 | XRAY Report ---
PROCEDURE: Foot 3 View LT INDICATIONS: LEFT FOOT PAIN/GREAT TOE FRACTURE TECHNIQUE: 3 views of the foot were acquired. COMPARISON: X-ray toes 08/04/2022. FINDINGS: Bones: Prior exam demonstrated lucency at the first MTP joint/base of the proximal first phalanx. It is less visible on current exam.. No suspicious bony lesions. Soft tissues: No suspicious soft tissue calcifications or masses. IMPRESSION: Previous proximal first phalanx lucency is less visible on current exam. Reviewed by: Tracie Jama MD on 08/26/2022 3:11 PM PDT Approved by: Tracie Jama MD on 08/26/2022 3:11 PM PDT Station ID: [id number]
== END 2022-08-26 17:14 | disposition home or self-care (01) ==
LOC: DI.WOS 17:13
PROVIDERS: ATTEND Physician Assistant Surgical
DX: M79.672 Pain in left foot (principal)

== ENCOUNTER 2022-09-16 08:00 | Outpatient (CLI) | payer MEDICARE, MEDICAID ==
--- NOTE | 2022-09-16 18:26 | XRAY Report ---
PROCEDURE: Foot 3 View LT INDICATIONS: LEFT 1ST TOE FRACTURE WITH PAIN TECHNIQUE: 3 views of the foot were acquired. COMPARISON: Left foot radiographs 08/26/2022, left foot/toe radiographs 08/04/2022 FINDINGS: Bones: Previously demonstrated lucencies at the base of the first digit proximal phalanx and distal phalanx suspicious for minimally displaced fractures are not well seen on the current exam. No defini te new/interval fracture identified. Polyarticular degenerative changes of the foot are redemonstrate d. Pes planus alignment of the foot. Soft tissues: No suspicious soft tissue calcifications . IMPRESSION: Previously demonstrated lucencies at the base of the first digit proximal phalanx and distal phalanx suspicious for minimally displaced fractures are not well seen on the current exam Reviewed by: Mic Banda MD on 09/16/2022 6:24 PM PDT Approved by: Mic Banda MD on 09/16/2022 6:24 PM PDT Station ID: [id number]
== END 2022-09-16 23:59 | disposition home or self-care (01) ==
LOC: DI.WOS 08:00
PROVIDERS: ATTEND Physician Assistant Surgical
DX: S92.515A Nondisplaced fracture of proximal phalanx of left lesser toe(s), initial encounter for closed fracture (principal)

== ENCOUNTER 2022-10-13 08:00 | Outpatient (CLI) | payer MEDICARE, MEDICAID ==
[2022-10-13 14:51] LABS: BASOPHILS % (AUTO) 0.6 %; EOSINOPHILS # (AUTO) 0.1 10^3/uL (0.0-0.7); EOSINOPHILS % (AUTO) 2.4 %; HCT - HEMATOCRIT 36.6 % (37.0-47.0); HGB - HEMOGLOBIN 11.4 g/dL (12.0-16.0); LYMPHOCYTES # (AUTO) 1.1 10^3/uL (1.5-3.5); LYMPHOCYTES % (AUTO) 24.2 %; MEAN CORPUSCULAR HEMOGLOBIN 28.6 pg (27.0-31.0); MEAN CORPUSCULAR HGB CONC 31.1 g/dL (32.0-36.0); MEAN CORPUSCULAR VOLUME 91.7 fL (81.0-99.0); MEAN PLATELET VOLUME 11.2 fL (7.9-10.8); MONOCYTES # (AUTO) 0.8 10^3/uL (0.0-1.0); MONOCYTES % (AUTO) 16.1 %; NEUTROPHILS # (AUTO) 2.6 10^3/uL (1.5-6.6); NEUTROPHILS % (AUTO) 56.5 %; PLT - PLATELET COUNT 148 10^3/uL (130-450); RED BLOOD COUNT 3.99 10^6/uL (4.20-5.40); WHITE BLOOD COUNT 4.7 x10^3/uL (4.8-10.8)
== END 2022-10-13 23:59 | disposition home or self-care (01) ==
LOC: LAB.N 08:00
PROVIDERS: ATTEND Internal Medicine
DX: L97.501 Non-pressure chronic ulcer of other part of unspecified foot limited to breakdown of skin (principal)
CPT/HCPCS: 36415; 85025; 85651; 86140

== ENCOUNTER 2022-10-13 14:31 | Outpatient (CLI) | payer MEDICARE, MEDICAID ==
--- NOTE | 2022-10-13 21:08 | XRAY Report ---
PROCEDURE: Foot 3 View RT INDICATIONS: CHRONIC ULCER OF FOOT,SKIN LAYER ONLY TECHNIQUE: 2 views of the foot were acquired. COMPARISON: X-ray foot 09/16/2022 FINDINGS: Bones: No fractures or dislocations. Small lucency at the articular surface at the base of the first distal phalanx. Calcaneal spur. Soft tissues: No suspicious soft tissue calcifications or masses. IMPRESSION: Small periarticular lucency at the base of the first distal phalanx. This is overall nonspecific and no priors are available for comparison. This could represent a small focus of arthritic erosion, subc hondral cyst or an appropriate clinical circumstances, small focus of developing osteomyelitis. Reviewed by: Tracie Jama MD on 10/13/2022 9:06 PM PDT Approved by: Tracie Jama MD on 10/13/2022 9:06 PM PDT Station ID: [id number]
== END 2022-10-13 14:32 | disposition home or self-care (01) ==
LOC: DI 14:31
PROVIDERS: ATTEND Internal Medicine
DX: L97.511 Non-pressure chronic ulcer of other part of right foot limited to breakdown of skin (principal)

== ENCOUNTER 2022-10-23 09:04 | Outpatient (CLI) | payer MEDICARE, MEDICAID ==
[~2022-10-23 09:04] MED LIST changes: +GADOBUTROL 10 MMOL/10 ML VIAL ONE; -IOTHALAMATE MEGLUMINE 50 ML VIAL ONE
[2022-10-23] MEDS ORDERED: GADOBUTROL 10 MMOL/10 ML VIAL IVP ONE (10:16)
--- NOTE | 2022-10-25 13:13 | MRI Report ---
PROCEDURE: FOOT W/WO - RT INDICATIONS: CHRONIC FOOT ULCER CONTRAST: GADAVIST 10.0 ML TECHNIQUE: Noncontrast sagittal T1 spin echo and T2 fast spin echo with fat saturation, long-axis T1 spin echo a nd T2 fast spin echo with fat saturation; short-axis T1 spin echo, proton density fast spin echo, and T2 fast spin echo with fat saturation through the forefoot. Post-contrast short axis, long axis, an d sagittal T1 spin echo with fat saturation through the forefoot. COMPARISON: None. FINDINGS: Image quality: Excellent. Bones and joints: There is mild marrow edema involving second distal phalanx and show subtle contrast enhancement in this area no gross bony erosive changes are seen. No other area of abnormal marrow si gnal. No fracture or dislocation. Osteoarthritic changes are noted throughout midfoot and forefoot odalys ints most notably at first MTP joint with significant joint space narrowing, subchondral sclerosis an d marginal osteophyte formation. Nonspecific subcortical cystic area involving medial periphery of fi rst metatarsal head are seen. Similar subcortical cystic areas also seen scattered in first through f ifth metatarsal bases. Soft tissues: There is soft tissue edema and swelling surrounding distal portion of second toe. Small ulceration over plantar aspect of distal second toe at the level of second distal phalanx is seen. M ild contrast enhancement in this area is also noted. No discrete drainable fluid collection. The visu alized plantar foot muscles demonstrate normal signal and bulk. Visualized flexor and extensor tendo ns appear intact, without tenosynovitis. The distal insertions of the peroneus brevis and longus ten dons appear intact. The principal Lisfranc ligament appears intact. No soft tissue ganglion cysts o r bursal fluid collections. Sagittal images demonstrate no evidence for plantar plate tears. IMPRESSION: 1. Ulceration involving plantar aspect of distal second toe with soft tissue swelling surrounding the distal portion of the second toe suggestive of cellulitis. No discrete drainable abscess collection. 2. Subtle marrow edema involving mid to distal portion of second distal phalanx without discrete frac ture line or bony erosive changes. Finding is concerning for early osteomyelitis in this area. No oth er area of marrow signal abnormalities. No fracture or dislocation. Midfoot and forefoot joint osteoa rthritis. 3. Extensor and flexor tendons are grossly intact. Lisfranc ligament is intact. Reviewed by: Artie Strauss MD on 10/25/2022 1:11 PM PDT Approved by: Artie Strauss MD on 10/25/2022 1:11 PM PDT Station ID: [id number]
== END 2022-10-23 09:05 | disposition home or self-care (01) ==
LOC: DI 09:04
PROVIDERS: ATTEND Internal Medicine
DX: L97.501 Non-pressure chronic ulcer of other part of unspecified foot limited to breakdown of skin (principal); R93.6 Abnormal findings on diagnostic imaging of limbs; M19.071 Primary osteoarthritis, right ankle and foot
CPT/HCPCS: 73720; A9585

== ENCOUNTER 2022-11-10 09:54 | Outpatient (CLI) | payer MEDICARE, MEDICAID ==
--- NOTE | 2022-11-10 17:32 | XRAY Report ---
PROCEDURE: Calcaneus RT INDICATIONS: PLANTAR PAIN FOREIGN SENSATION TECHNIQUE: Two views of the calcaneus were acquired. COMPARISON: Right foot radiographs 10/13/2022 FINDINGS: Bones: No acute fracture identified. A plantar calcaneal spur is present. Soft tissues: No definite radiopaque foreign body identified IMPRESSION: No acute osseous abnormality. If symptoms persist, follow-up radiographs and/or CT or MRI may be help ful for further evaluation. Reviewed by: Mic Banda MD on 11/10/2022 5:30 PM PDT Approved by: Mic Banda MD on 11/10/2022 5:30 PM PDT Station ID: [id number]
== END 2022-11-10 09:55 | disposition home or self-care (01) ==
LOC: DI 09:54
PROVIDERS: ATTEND Family Medicine
DX: M79.671 Pain in right foot (principal)

== ENCOUNTER 2022-11-16 13:44 | Emergency (ER) | payer MEDICARE, MEDICAID ==
--- OUTSIDE RECORDS SUMMARY | 2022-11-16 14:00 | EXTERNAL MEDICAL SUMMARY RPT | Continuity of Care Document ---
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 Name Role Phone Jah Jimenez Unavailable Unavailable Medications date description facility 2022-08-18 00:00 [facility] 2022-08-18 00:00 [facility] 2022-08-18 00:00 Hydrocodone-Acetaminophen [facility] 2022-08-18 00:00 Metformin-Blood Sugar [facility] 2022-08-18 00:00 [facility] 2022-08-18 00:00 [facility] Results/Labs test date facility value unit notes Social History date description facility 2022-08-18 00:00 Never smoked tobacco ([facility] Vital Signs date measurement value units 2022-08-18 00:00 BMI 38.6 kg/m2 2022-08-18 00:00 BP_diastolic 74 mmHg 2022-08-18 00:00 BP_systolic 130 mmHg 2022-08-18 00:00 heart_rate 54 /min 2022-08-18 00:00 height_metric 167.64 cm 2022-08-18 00:00 height_standard 66 in 2022-08-18 00:00 o2_saturation 96 % 2022-08-18 00:00 temperature_metric 36.67 C 2022-08-18 00:00 temperature_standard 98 F 2022-08-18 00:00 weight_metric 108.49 kg 2022-08-18 00:00 weight_standard 239.18 lb
[2022-11-16] MEDS ORDERED: PROCHLORPERAZINE 10 MG/2 ML VIAL IVP STA (14:33)
[2022-11-16] MEDS ORDERED: diphenhydrAMINE INJ 50 MG/ML VIAL IVP STA (14:33)
[2022-11-16] MEDS ORDERED: SODIUM CHLORIDE 0.9% 1,000 ML IV STA (14:33)
[2022-11-16 15:12] LABS: VBG BASE EXCESS -2.4 mmol/L (-2 - +2); VBG HCO3 24.1 mmol/L (23-28); VBG OXYGEN SATURATION 91.5 % (60-80); VBG PCO2 48.8 mmHg (41-51); VBG PH 7.312 (7.31-7.41); VBG PO2 65.9 mmHg (25-47); VBG TOTAL CO2 25.6 mmol/L (24-29)
--- NOTE | 2022-11-16 15:14 | XRAY Report ---
PROCEDURE: Chest 1 View X-Ray INDICATIONS: Chest Pain TECHNIQUE: One view of the chest was acquired. COMPARISON: CT chest 09/08/2022 FINDINGS: Surgical changes and devices: Right-sided Port-A-Cath. Left breast and axilla surgical clips Lungs and pleura: No pleural effusions or pneumothorax. Lungs are clear. Mediastinum: Mediastinal contours appear normal. Heart is enlarged. Bones and chest wall: No suspicious bony lesions. Overlying soft tissues appear unremarkable. IMPRESSION: No acute cardiopulmonary process. Reviewed by: Jami Avilez MD, PhD on 11/16/2022 3:13 PM PDT Approved by: Jami Avilez MD, PhD on 11/16/2022 3:13 PM PDT Station ID: [id number]
[2022-11-16 15:24] LABS: ALBUMIN 3.3 g/dL (3.2-5.5); ALBUMIN/GLOBULIN RATIO 0.9 (1.0-2.2); BILIRUBIN,TOTAL 0.6 mg/dL (0.2-1.0); CALCIUM 8.4 mg/dL (8.5-10.3); CREATININE 0.9 mg/dL (0.4-1.0); MAGNESIUM 1.4 mg/dL (1.7-2.8); POTASSIUM 4.4 mmol/L (3.5-5.0); TOTAL PROTEIN 6.9 g/dL (6.7-8.2)
[2022-11-16 15:29] LABS: BASOPHILS % (AUTO) 0.3 %; EOSINOPHILS % (AUTO) 0.3 %; HCT - HEMATOCRIT 36.3 % (37.0-47.0); HGB - HEMOGLOBIN 11.2 g/dL (12.0-16.0); LYMPHOCYTES # (AUTO) 0.4 10^3/uL (1.5-3.5); LYMPHOCYTES % (AUTO) 11.3 %; MEAN CORPUSCULAR HEMOGLOBIN 28.9 pg (27.0-31.0); MEAN CORPUSCULAR HGB CONC 30.9 g/dL (32.0-36.0); MEAN CORPUSCULAR VOLUME 93.8 fL (81.0-99.0); MEAN PLATELET VOLUME 11.4 fL (7.9-10.8); MONOCYTES # (AUTO) 0.1 10^3/uL (0.0-1.0); MONOCYTES % (AUTO) 2.2 %; NEUTROPHILS # (AUTO) 3.1 10^3/uL (1.5-6.6); NEUTROPHILS % (AUTO) 85.6 %; PLT - PLATELET COUNT 115 10^3/uL (130-450); RED BLOOD COUNT 3.87 10^6/uL (4.20-5.40); RED CELL DISTRIBUTION WIDTH 15.7 % (12.0-15.0); WHITE BLOOD COUNT 3.6 x10^3/uL (4.8-10.8)
[2022-11-16 15:31] LABS: TROPONIN I HIGH SENSITIVITY 5.2 ng/L (2.3-14.8)
[2022-11-16 16:30] LABS: B. PARAPERTUSSIS- RESP PCR PAN NOT DETECTED; B. PERTUSSIS- RESP PCR PANEL NOT DETECTED; C. PNEUMONIAE- RESP PCR PANEL NOT DETECTED; CORONAVIRUS 229E-RESP PCR NOT DETECTED; CORONAVIRUS HKU1-RESP PCR NOT DETECTED; CORONAVIRUS NL63-RESP PCR NOT DETECTED; CORONAVIRUS OC43-RESP PCR NOT DETECTED; HUMAN METAPNEUMOVIRUS NOT DETECTED; INFLUENZA A- RESP PCR PANEL NOT DETECTED; INFLUENZA B - RESP PCR PANEL NOT DETECTED; M. PNEUMONIAE- RESP PCR PANEL NOT DETECTED; PARAINFLUENZA VIRUS 1 NOT DETECTED; PARAINFLUENZA VIRUS 2 NOT DETECTED; PARAINFLUENZA VIRUS 3 NOT DETECTED; PARAINFLUENZA VIRUS 4 NOT DETECTED; RHINOVIRUS/ENTEROVIRUS NOT DETECTED; RSV- RESP PCR PANEL NOT DETECTED; SARS-CoV-2 -RESP PCR PANEL NOT DETECTED
--- NOTE | 2022-11-16 17:07 | ED Physician Documentation ---
History of Present Illness - Stated complaint Stated Complaint: DIZZINESS,FAINT - Chief complaint Chief Complaint: General - Additonal information Additional information: Patient presents with lightheadedness. 67-year-old female with known history of metastatic breast cancer, currently being treated for soft tissue infection in the left lower extremity. Reports was otherwise feeling well however became lightheaded and had frontal headache after chemotherapy earlier today. Denies similar symptoms in the past. Denies any chest pain, shortness of breath, heart palpitations associated with her symptoms. Headache was not maximal at time of exertion. No blurred or double vision. Review of Systems Constitutional: denies: Fever Eyes: denies: Loss of vision Ears: denies: Loss of hearing Nose: denies: Rhinorrhea / runny nose Throat: denies: Dental pain / toothache Cardiac: denies: Chest pain / pressure Respiratory: denies: Dyspnea GI: denies: Abdominal Pain : denies: Dysuria Skin: denies: Rash Musculoskeletal: denies: Neck pain Neurologic: denies: Generalized weakness PD PAST MEDICAL HISTORY - Past Medical History Past Medical History: Yes Cardiovascular: Hypertension, High cholesterol, Peripheral Vascular Disease, Mu rmur Respiratory: Sleep apnea, CPAP use Neuro: Headaches, Peripheral neuropathy, Fainting Endocrine/Autoimmune: Type 2 diabetes GI: GERD, Cholelithiasis 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), Breast cancer : None HEENT: Chronic vision loss, Chronic sinusitis Psych: Anxiety Musculoskeletal: Osteoarthritis Derm: None, Other - Past Surgical History Past Surgical History: Yes Ortho: Hip replacement, Spine surgery /TANNING [employer]UM OPERATOR: Tubal ligation, Other - Present Medications Home Medications: Ambulatory Orders Medication Instructions Recorded Confirmed Sertraline HCl 150 mg PO DAILY 06/27/18 11/16/22 metFORMIN [Glucophage] 500 mg PO BIDWM 06/27/18 11/16/22 Cholecalciferol (Vitamin D3) 2,000 unit PO DAILY 05/10/19 11/16/22 [Vitamin D3] Multivitamin [Multivitamins] 1 tab PO DAILY 05/10/19 11/16/22 Vitamin B Complex/Folic Acid 1 tab PO DAILY 05/10/19 11/16/22 [Vitamin B Complex Tablet] Levothyroxine Sodium [Levoxyl] 25 mcg PO QDAC 04/16/21 11/16/22 Rosuvastatin Calcium [Crestor] 20 mg PO DAILY 04/16/21 11/16/22 Dulaglutide [Trulicity] 0.75 mg SQ UD 11/10/21 11/16/22 Prochlorperazine Maleate 10 mg PO Q6HR PRN 12/22/21 11/16/22 [Compazine] Loperamide [Imodium] 2 mg PO ONCE PRN MDD 8 CAPS (16 MG) 12/24/21 11/16/22 Metoprolol Tartrate [Lopressor] 50 mg PO BID 12/24/21 11/16/22 Apixaban [Eliquis] 2.5 mg PO BID 01/05/22 11/16/22 Lidocaine/Prilocain 2.5% Cream 1 applic TOP PRN PRN 01/05/22 11/16/22 [Emla 2.5% Cream] Celecoxib [CeleBREX] 100 mg PO BID 03/09/22 11/16/22 Clobetasol 0.05% Oint [Temovate 1 applic TOP BID PRN 03/23/22 11/16/22 0.05% Oint] busPIRone [Buspar] 15 mg PO DAILY 04/20/22 11/16/22 Pregabalin [Lyrica] 150 mg PO DAILY 05/18/22 11/16/22 Tamoxifen [Nolvadex] 20 mg PO DAILY 10/05/22 11/16/22 Amoxicillin 875 mg PO BID 30 Days #60 tablet 10/27/22 11/16/22 Sulfamethox/Trimeth 800/160 1 tablet PO BID 30 Days #60 tablet 10/27/22 11/16/22 [Bactrim Ds] - Allergies Allergies/Adverse Reactions: Allergies Allergy/AdvReac Type Severity Reaction Status Date / Time adhesive Allergy Unknown Verified 11/16/22 13:48 anastrozole Allergy Unknown Verified 11/16/22 13:48 hydroxyzine Allergy Itching Verified 11/16/22 13:48 lorazepam Allergy Emesis Verified 11/16/22 13:48 meclizine Allergy Emesis Verified 11/16/22 13:48 silver Allergy Unknown Verified 11/16/22 13:48 [From Tegaderm AG Mesh] codeine AdvReac Nausea Verified 11/16/22 13:48 gabapentin AdvReac Dizziness Verified 11/16/22 13:48 - Social History Does the pt smoke?: No Smoking Status: Never smoker Does the pt drink ETOH?: No Does the pt have substance abuse?: No - Immunizations Immunizations are current?: Yes - POLST Patient has POLST: No POLST Status: Full Code PD ED PE NORMAL - General General: Alert and oriented X 3, No acute distress, Well developed/nourished - HEENT HEENT: Atraumatic, PERRL, EOMI, Ears normal, Moist mucous membranes, Pharynx benign - Neck Neck: Supple, no meningeal sign, No bony TTP, No adenopathy, Thyroid normal, No JVD, No bruit - Cardiac Cardiac: RRR, No murmur, No gallop, Other (Right chest wall port) - Respiratory Respiratory: No respiratory distress, Clear bilaterally - Abdomen Abdomen: Normal bowel sounds - Female Female : Deferred - Rectal Rectal: Deferred - Back Back: No CVA TTP - Derm Derm: Normal color - Extremities Extremities: No deformity - Neuro Neuro: Alert and oriented X 3, 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 Relevant findings are: Sinus rhythm with rate 58 bpm. Normal axis. Normal OK, QRS, QTc intervals. No ST segment elevations. Nonspecific ST-T wave abnormalities. - Labs Labs: Laboratory Tests 11/16/22 11/16/22 11/16/22 15:00 15:00 15:00 WBC 3.6 L RBC 3.87 L Hgb 11.2 L Hct 36.3 L MCV 93.8 MCH 28.9 MCHC 30.9 L RDW 15.7 H Plt Count 115 L MPV 11.4 H Neut # (Auto) 3.1 Lymph # (Auto) 0.4 L [place] # (Auto) 0.1 Eos # (Auto) 0.0 Baso # (Auto) 0.0 Absolute Nucleated RBC 0.00 Nucleated RBC % 0.0 VBG pH 7.312 VBG pCO2 48.8 VBG pO2 65.9 H VBG HCO3 24.1 VBG Total CO2 25.6 VBG O2 Saturation 91.5 H VBG Base Excess -2.4 L Sodium 142 Potassium 4.4 Chloride 110 Carbon Dioxide 26 Anion Gap 6.0 BUN 15 Creatinine 0.9 Estimated GFR (MDRD) 62 L Glucose 137 H Calcium 8.4 L Magnesium 1.4 L Total Bilirubin 0.6 AST 30 ALT 18 Alkaline Phosphatase 66 Total Creatine Kinase 94 Troponin I High Sens 5.2 Total Protein 6.9 Albumin 3.3 Globulin 3.6 Albumin/Globulin Ratio 0.9 L Lipase 56 H Nasal Adenovirus (PCR) Nasal B. parapertussis DNA (PCR) Nasal Coronavir 229E PCR Nasal Coronavir HKU1 PCR Nasal Coronavir NL63 PCR Nasal Coronavir OC43 PCR Nasal Enterovir/Rhinovir PCR Nasal Influenza B PCR Nasal Influenza A PCR Nasal Parainfluen 1 PCR Nasal Parainfluen 2 PCR Nasal Parainfluen 3 PCR Nasal Parainfluen 4 PCR Nasal RSV (PCR) Nasal B.pertussis DNA PCR Nasal C.pneumoniae (PCR) Luis Human Metapneumo PCR Nasal M.pneumoniae (PCR) Nasal SARS-CoV-2 (PCR) 11/16/22 15:05 WBC RBC Hgb Hct MCV MCH MCHC RDW Plt Count MPV Neut # (Auto) Lymph # (Auto) [place] # (Auto) Eos # (Auto) Baso # (Auto) Absolute Nucleated RBC Nucleated RBC % VBG pH VBG pCO2 VBG pO2 VBG HCO3 VBG Total CO2 VBG O2 Saturation VBG Base Excess Sodium Potassium Chloride Carbon Dioxide Anion Gap BUN Creatinine Estimated GFR (MDRD) Glucose Calcium Magnesium Total Bilirubin AST ALT Alkaline Phosphatase Total Creatine Kinase Troponin I High Sens Total Protein Albumin Globulin Albumin/Globulin Ratio Lipase Nasal Adenovirus (PCR) NOT DETECTED Nasal B. parapertussis DNA (PCR) NOT DETECTED Nasal Coronavir 229E PCR NOT DETECTED Nasal Coronavir HKU1 PCR NOT DETECTED Nasal Coronavir NL63 PCR NOT DETECTED Nasal Coronavir OC43 PCR NOT DETECTED Nasal Enterovir/Rhinovir PCR NOT DETECTED Nasal Influenza B PCR NOT DETECTED Nasal Influenza A PCR NOT DETECTED Nasal Parainfluen 1 PCR NOT DETECTED Nasal Parainfluen 2 PCR NOT DETECTED Nasal Parainfluen 3 PCR NOT DETECTED Nasal Parainfluen 4 PCR NOT DETECTED Nasal RSV (PCR) NOT DETECTED Nasal B.pertussis DNA PCR NOT DETECTED Nasal C.pneumoniae (PCR) NOT DETECTED Luis Human Metapneumo PCR NOT DETECTED Nasal M.pneumoniae (PCR) NOT DETECTED Nasal SARS-CoV-2 (PCR) NOT DETECTED PD Medical Decision Making - ED course Complexity details: reviewed results, re-evaluated patient, d/w patient, d/w family ED course: Patient 67-year-old female with known history of metastatic breast cancer presenting to the emergency department with lightheadedness and headache after chemotherapy earlier today. Afebrile, hemodynamic stable on arrival to the emergency department. Labs generally reassuring. There is a notable leukopenia likely secondary to active chemotherapy. No severe electrolyte abnormalities. EKG with some nonspecific ST-T wave abnormalities but no chest pain, , Shortness of breath, heart palpitations that would be of imminent concern for cardiac dysrhythmia or ischemia. Patient given IV hydration, Compazine, Benadryl. On reevaluation found to be resting comfortably. Reported feeling safe going home. Will discharge for follow-up with primary care. Clear return precautions given. Departure - Departure Disposition: 01 Home, Self Care Clinical Impression: Lightheadedness Comments: Thank you for allowing us to care for you today would be general. Today in the emergency department you were evaluated for any possible life- threatening medical emergency. Overall your EKG and lab work were all very reassuring. I would like you to continue to follow-up carefully with your prima ry care doctor. If you have similar recurrent episodes of lightheadedness in the future please return to the emergency department. Forms: PCP List
[2022-11-16 17:14] VITALS: BP 127/78; O2SAT 92
== END 2022-11-16 17:37 | disposition home or self-care (01) ==
LOC: ED 13:44
DX: R42 Dizziness and giddiness (principal); I10 Essential (primary) hypertension; E11.9 Type 2 diabetes mellitus without complications; Z79.84 Long term (current) use of oral hypoglycemic drugs; C50.919 Malignant neoplasm of unspecified site of unspecified female breast; Z92.21 Personal history of antineoplastic chemotherapy
CPT/HCPCS: 36415; 71045; 80053; 82550; 82803; 83690; 83735; 84484; 85025; 87633; 93005; 96374; 96375; 99284; 99285; J1200

== ENCOUNTER 2022-12-19 11:53 | Emergency (ER) | payer MEDICARE, MEDICAID ==
--- NOTE | 2022-12-19 12:24 | ED Physician Documentation ---
History of Present Illness - Stated complaint Stated Complaint: BEE STING BOTH ARMS/RT LEG - Chief complaint Chief Complaint: Allergic Rx - History obtained from History obtained from: Patient - History of Present Illness Timing: Enter time (1700), Yesterday - Additonal information Additional information: 67-year-old Kristie Lantigua with a history of aggressive breast cancer was outside yesterday when she was stung multiple times by bees in the left forearm the right forearm and the right knee. Overnight she has had an increase in the swelling she has some erythema associated with this and she has itching to her skin. She does not have any difficulty with her breathing. She has a fair amount of swelling mostly to the left forearm extending into the hand. She does not have a history of bee sting allergy. She has had skin infections previously. Review of Systems Constitutional: denies: Fever, Chills, Myalgias Ears: denies: Ear pain Nose: denies: Congestion Throat: denies: Sore throat Cardiac: denies: Chest pain / pressure Respiratory: denies: Dyspnea, Cough GI: denies: Abdominal Pain, Vomiting, Diarrhea : denies: Dysuria, Frequency Skin: reports: Bite / sting Musculoskeletal: reports: Extremity pain, Extremity swelling. 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), Breast cancer : None HEENT: Chronic vision loss, Chronic sinusitis Psych: Anxiety Musculoskeletal: Osteoarthritis Derm: None, Other - Past Surgical History Past Surgical History: Yes Ortho: Hip replacement, Spine surgery /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: Tubal ligation, Other - Present Medications Home Medications: Ambulatory Orders Medication Instructions Recorded Confirmed Sertraline HCl 150 mg PO DAILY 06/27/18 12/08/22 metFORMIN [Glucophage] 500 mg PO BIDWM 06/27/18 12/08/22 Cholecalciferol (Vitamin D3) 2,000 unit PO DAILY 05/10/19 12/08/22 [Vitamin D3] Multivitamin [Multivitamins] 1 tab PO DAILY 05/10/19 12/08/22 Vitamin B Complex/Folic Acid 1 tab PO DAILY 05/10/19 12/08/22 [Vitamin B Complex Tablet] Levothyroxine Sodium [Levoxyl] 25 mcg PO QDAC 04/16/21 12/08/22 Rosuvastatin Calcium [Crestor] 20 mg PO DAILY 04/16/21 12/08/22 Dulaglutide [Trulicity] 0.75 mg SQ UD 11/10/21 12/08/22 Prochlorperazine Maleate 10 mg PO Q6HR PRN 12/22/21 12/08/22 [Compazine] Loperamide [Imodium] 2 mg PO ONCE PRN MDD 8 CAPS (16 MG) 12/24/21 12/08/22 Metoprolol Tartrate [Lopressor] 25 mg PO DAILY 12/24/21 12/08/22 Apixaban [Eliquis] 2.5 mg PO BID 01/05/22 12/08/22 Lidocaine/Prilocain 2.5% Cream 1 applic TOP PRN PRN 01/05/22 12/08/22 [Emla 2.5% Cream] Celecoxib [CeleBREX] 100 mg PO BID 03/09/22 12/08/22 Clobetasol 0.05% Oint [Temovate 1 applic TOP BID PRN 03/23/22 12/08/22 0.05% Oint] busPIRone [Buspar] 15 mg PO DAILY 04/20/22 12/08/22 Pregabalin [Lyrica] 150 mg PO DAILY 05/18/22 12/08/22 Tamoxifen [Nolvadex] 20 mg PO DAILY 10/05/22 12/08/22 cephALEXin [Keflex] 500 mg PO Q6H #28 cap 12/19/22 - Allergies Allergies/Adverse Reactions: Allergies Allergy/AdvReac Type Severity Reaction Status Date / Time adhesive Allergy Unknown Verified 12/19/22 12:03 anastrozole Allergy Unknown Verified 12/19/22 12:03 hydroxyzine Allergy Itching Verified 12/19/22 12:03 lorazepam Allergy Emesis Verified 12/19/22 12:03 meclizine Allergy Emesis Verified 12/19/22 12:03 silver Allergy Unknown Verified 12/19/22 12:03 [From Tegaderm AG Mesh] codeine AdvReac Nausea Verified 12/19/22 12:03 gabapentin AdvReac Dizziness Verified 12/19/22 12:03 - Social History Does the pt smoke?: No Smoking Status: Never smoker Does the pt drink ETOH?: No Does the pt have substance abuse?: No - Immunizations Immunizations are current?: Yes - POLST Patient has POLST: No POLST Status: Full Code PD ED PE NORMAL - Vitals Vital signs reviewed: Yes (hypertensive) - General General: Alert and oriented X 3, No acute distress, Well developed/nourished - HEENT HEENT: Atraumatic, PERRL, EOMI - Respiratory Respiratory: No respiratory distress - Derm Derm: Other (There is swelling to the L forearm from the elbow to the dorsum of the hand. There are areas of stings to the distal forearm and the proximal forearm. There is blanching erythema and tenderness. There is no fluctuance. The R forearm has some swelling but is less tender the R knee has mild swelli) - Extremities Extremities: No deformity, Other (as described above. The skin of the feet appear well tanned. ) Results - Vitals Vitals: Vital Signs - 24 hr 12/19/22 12:00 Temperature 37.1 C Heart Rate 74 Respiratory 20 Rate Blood Pressure 148/86 H O2 Saturation 98 Oxygen O2 Source Room air PD Medical Decision Making - ED course Complexity details: considered differential, d/w patient ED course: 67-year-old Kristie Lantigua presents to the emergency department 1 day after being stung by a bee with increased swelling and redness to the left forearm. She appears to have some bee sting cellulitis. She does not have a prior history of bee sting allergy. Today we have administered dexamethasone we will place patient on a course of antibiotic and I have additionally asked the patient to take Benadryl 25 mg every 6 hours for the next 2 days. Departure - Departure Disposition: 01 Home, Self Care Clinical Impression: Cellulitis Qualifiers: Site of cellulitis: extremity Site of cellulitis of extremity: upper extremity Laterality: left Qualified Code(s): L03.114 - Cellulitis of left upper limb Bee sting reaction Qualifiers: Encounter type: initial encounter Injury intent: accidental or unintentional Qualified Code(s): T63.441A - Toxic effect of venom of bees, accidental (unintentional), initial encounter Condition: Stable Instructions: ED Bite Sting Insect Gen Allergic React, ED Infec Skin Cellulitis Follow-Up: Jah Marie MD [Provider Admit Priv/Credential] - Prescriptions: cephALEXin [Keflex] 500 mg PO Q6H #28 cap Comments: Kristie, today it looks like the bee stings you have are infected in the left arm. We have given you a dose of dexamethasone and we expect the swelling to improve somewhat. I have E scribed some antibiotic to the [facility] in [place]. Our expectation with treatment is improvement in your swelling pain and itching. I recommend taking Benadryl 25 mg every 6 hours for the next 2 days.
[2022-12-19] MEDS: CHERRY SYRUP 10 ML UDC PO ONE (12:27)
[2022-12-19] MEDS: DEXAMETHASONE 10 MG/ML VIAL PO STA (12:27)
--- OUTSIDE RECORDS SUMMARY | 2022-12-19 12:43 | EXTERNAL MEDICAL SUMMARY RPT | Continuity of Care Document ---
Author Name Unknown Address [address] [place] [address] Phone Organization [facility] Address [address] [place] [address] Phone Care Team Providers Care Supervisor Rolling Room Name Role Phone Jah Jimenez Unavailable Unavailable Medications date description facility 2022-12-15 00:00 [facility] 2022-12-15 00:00 [facility] 2022-12-15 00:00 [facility] 2022-12-15 00:00 [facility] Problems date description facility 2022-12-15 00:00 [facility] Results/Labs test date facility value unit notes Social History date description facility 2022-12-15 00:00 Never smoked tobacco ([facility] Vital Signs date measurement value units 2022-12-15 00:00 BMI 36.9 kg/m2 2022-12-15 00:00 BP_diastolic 78 mmHg 2022-12-15 00:00 BP_systolic 130 mmHg 2022-12-15 00:00 heart_rate 88 /min 2022-12-15 00:00 height_metric 167.64 cm 2022-12-15 00:00 height_standard 66 in 2022-12-15 00:00 o2_saturation 98 % 2022-12-15 00:00 weight_metric 103.87 kg 2022-12-15 00:00 weight_standard 228.99 lb
[2022-12-19 12:51] VITALS: BP 163/70; O2SAT 96
== END 2022-12-19 12:52 | disposition home or self-care (01) ==
LOC: ED 11:53
DX: T63.441A Toxic effect of venom of bees, accidental (unintentional), initial encounter (principal); L03.116 Cellulitis of left lower limb; I10 Essential (primary) hypertension; E78.00 Pure hypercholesterolemia, unspecified; I73.9 Peripheral vascular disease, unspecified; E11.42 Type 2 diabetes mellitus with diabetic polyneuropathy; Z79.84 Long term (current) use of oral hypoglycemic drugs; Z79.899 Other long term (current) drug therapy; Z79.01 Long term (current) use of anticoagulants
CPT/HCPCS: 99282; 99283

== ENCOUNTER 2023-02-01 15:57 | Outpatient (CLI) | payer MEDICARE, MEDICAID ==
--- NOTE | 2023-02-01 16:55 | XRAY Report ---
PROCEDURE: Knee 3 View LT INDICATIONS: KNEE JOINT PAIN>3 MONTHS,LEFT TECHNIQUE: 3 views of the left knee(s) were acquired. COMPARISON: None. FINDINGS: Bones: No fractures or dislocations. No suspicious bony lesions. Tricompartmental degenerative ch anges with tricompartmental osteophytes and medial joint space narrowing consistent with osteoarthrit is. Soft tissues: No knee joint effusion. No suspicious soft tissue calcifications or masses. IMPRESSION: Osteoarthritis of the left knee. Reviewed by: Jovany Richardson on 02/01/2023 4:53 PM PDT Approved by: Jovany Richardson on 02/01/2023 4:53 PM PDT Station ID: [id number]
== END 2023-02-01 15:58 | disposition home or self-care (01) ==
LOC: DI 15:57
PROVIDERS: ATTEND Internal Medicine
DX: M17.12 Unilateral primary osteoarthritis, left knee (principal)

== ENCOUNTER 2023-02-01 16:17 | Emergency (ER) | payer MEDICARE, MEDICAID ==
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
[2023-02-01 17:51] LABS: BASOPHILS % (AUTO) 0.7 %; EOSINOPHILS % (AUTO) 0.5 %; HCT - HEMATOCRIT 38.3 % (37.0-47.0); HGB - HEMOGLOBIN 12.2 g/dL (12.0-16.0); LYMPHOCYTES # (AUTO) 0.5 10^3/uL (1.5-3.5); LYMPHOCYTES % (AUTO) 11.6 %; MEAN CORPUSCULAR HEMOGLOBIN 29.5 pg (27.0-31.0); MEAN CORPUSCULAR HGB CONC 31.9 g/dL (32.0-36.0); MEAN CORPUSCULAR VOLUME 92.7 fL (81.0-99.0); MEAN PLATELET VOLUME 10.7 fL (7.9-10.8); MONOCYTES # (AUTO) 0.6 10^3/uL (0.0-1.0); MONOCYTES % (AUTO) 13.8 %; NEUTROPHILS % (AUTO) 73.2 %; PLT - PLATELET COUNT 120 10^3/uL (130-450); RED BLOOD COUNT 4.13 10^6/uL (4.20-5.40); RED CELL DISTRIBUTION WIDTH 14.6 % (12.0-15.0); WHITE BLOOD COUNT 4.1 x10^3/uL (4.8-10.8)
[2023-02-01 18:06] LABS: ALBUMIN 3.7 g/dL (3.2-5.5); ALBUMIN/GLOBULIN RATIO 1.2 (1.0-2.2); BILIRUBIN,TOTAL 1.1 mg/dL (0.2-1.0); CALCIUM 9.3 mg/dL (8.5-10.3); CREATININE 0.6 mg/dL (0.6-1.3); MAGNESIUM 1.2 mg/dL (1.7-2.3); POTASSIUM 3.9 mmol/L (3.5-4.5); TOTAL PROTEIN 6.8 g/dL (6.4-8.9)
[2023-02-01 18:09] LABS: TROPONIN I HIGH SENSITIVITY 6.1 ng/L (2.3-14.8)
--- NOTE | 2023-02-01 18:09 | XRAY Report ---
PROCEDURE: Chest 1 View X-Ray INDICATIONS: Chest pain TECHNIQUE: One view of the chest was acquired. COMPARISON: CT chest 11/30/2022. CXR 11/16/2022. FINDINGS: Surgical changes and devices: Clips projecting over the left chest. Right-sided port with the cathet er tip projecting at the cavoatrial junction. Lungs and pleura: No pleural effusions or pneumothorax. Opacity projecting over the left chest. No s ilhouetting of the left hemidiaphragm. Mediastinum: Possible leftward shift of the mediastinal structures. Heart size appears stable. Bones and chest wall: No suspicious bony lesions. Overlying soft tissues appear unremarkable. IMPRESSION: Possible leftward shift of the mediastinal structures and possible opacity in the left lower lung. Th is could be due to mucous plugging and atelectasis. If clinically indicated CT of the chest could be performed for further evaluation. Reviewed by: Raul Joe MD on 02/01/2023 6:08 PM PDT Approved by: Raul Joe MD on 02/01/2023 6:08 PM PDT Station ID: [id number]
[2023-02-01] MEDS ORDERED: MAGNESIUM SULFATE 2 GRAM 2 GM/50 ML BAG IV ONE (18:16)
[2023-02-01] MEDS ORDERED: MAGNESIUM OXIDE 400 MG TABLET PO STA (18:16)
[2023-02-01] MEDS ORDERED: oxyCODONE 5 MG TABLET PO STA (18:19)
[2023-02-01] MEDS ORDERED: KETOROLAC 15 MG/ML VIAL IVP STA (18:25)
[2023-02-01 19:53] VITALS: BP 147/84; O2SAT 98
== END 2023-02-01 20:00 | disposition home or self-care (01) ==
LOC: ED 16:17
DX: E83.42 Hypomagnesemia (principal); I10 Essential (primary) hypertension; M17.12 Unilateral primary osteoarthritis, left knee; R00.0 Tachycardia, unspecified
CPT/HCPCS: 36415; 71045; 73562; 80053; 83690; 83735; 83880; 84443; 84484; 85025; 93005; 96365; 96375; 99284; A9270

== ENCOUNTER 2023-02-12 09:06 | Outpatient (CLI) | payer MEDICARE, MEDICAID ==
--- NOTE | 2023-02-14 12:35 | MRI Report ---
PROCEDURE: SHOULDER WO - RT INDICATIONS: RIGHT SHOULDER PAIN TECHNIQUE: Noncontrast oblique coronal T2 fast spin echo with fat saturation, oblique sagittal T1 spin echo and T2 fast spin echo with fat saturation, axial T1 spin echo and T2 fast spin echo with fat saturation a nd 3-D gradient echo through the shoulder. COMPARISON: None. FINDINGS: Image quality: Excellent. Rotator cuff: There is full-thickness tearing of the supraspinatus tendon and the majority of the ant erior infraspinatus tendon from their distal insertions with proximal tendon retraction measuring up to 4.2 cm from the greater tuberosity. There is mild atrophy and grade 2 fatty infiltration of the ro praspinatus and infraspinatus muscles. The teres minor tendon demonstrates mild tendinosis. There is moderate subscapularis tendinosis and low-grade partial intrasubstance tearing distally. Bones and bursae: No acute trabecular bone injury or fracture. Chronic traction cystic changes are se en in the posterosuperior head and the greater and lesser tuberosities near the rotator cuff tendon i nsertions. Full-thickness cartilage loss is noted at the superior humeral head and there is high-grad e cartilage loss at the glenoid with subchondral cystic changes and marginal osteophyte formation. Mo derate degenerative changes are seen at the acromioclavicular joint with subchondral cystic changes a nd marginal osteophytes. There is a moderate glenohumeral effusion that communicates with the subacro mial/subdeltoid bursa. Capsule and soft tissues: There is diffuse labral degeneration and chronic degenerative tearing. Mode rate to severe tendinosis of the proximal biceps long head tendon is seen. Partial intrasubstance tea ring of the intra-articular portion is suspected with contour irregularity. There is effacement of th e normal fat signal in the rotator. The glenohumeral ligaments appear to be intact. IMPRESSION: 1.Full-thickness tearing of the supraspinatus tendon and the majority of the infraspinatus tendon wit h proximal tendon retraction measuring up to 4.2 cm. Chronic mild atrophy and grade 2 fatty infiltrat ion are seen at the supraspinatus and infraspinatus muscles. 2.Moderate subscapularis tendinosis and low-grade partial intrasubstance tearing. 3.Partial tearing of the proximal biceps long head tendon superimposed on moderate to severe tendinos is. 4.Glenohumeral osteoarthrosis including a large area of full-thickness cartilage loss at the superior humeral head. 5.Moderate acromioclavicular joint osteoarthrosis. 6.Moderate glenohumeral joint effusion communicates with the subacromial/subdeltoid bursa. Reviewed by: Mic Gentile MD on 02/14/2023 12:34 PM PST Approved by: Mic Gentile MD on 02/14/2023 12:34 PM PST Station ID: [id number]
== END 2023-02-12 09:07 | disposition home or self-care (01) ==
LOC: DI 09:06
PROVIDERS: ATTEND Internal Medicine
DX: M75.121 Complete rotator cuff tear or rupture of right shoulder, not specified as traumatic (principal); S46.111A Strain of muscle, fascia and tendon of long head of biceps, right arm, initial encounter; M19.011 Primary osteoarthritis, right shoulder; M25.411 Effusion, right shoulder

== ENCOUNTER 2023-02-24 12:29 | Outpatient (CLI) | payer MEDICARE, MEDICAID ==
--- NOTE | 2023-02-24 13:21 | Sleep Patient Instructions ---
Sleep Center Visit Summary - Patient Visit Information Reason for Visit: Initial consult for evaluation of sleep disordered breathing and other sleep issues. - Patient Instructions Additional Instructions: You will be completing a sleep study, either an in-lab polysomnography (PSG) or home sleep study (HST). You will follow-up in the sleep care office after the sleep study is completed to hear the results and talk about therapy, if needed. You will be called by our office staff to schedule this appointment, but you may contact us with any questions. - Clinic Information Contact: [facility] [address] [place] [id number] [email or web address] T: [phone]
--- NOTE | 2023-02-24 13:24 | SLEEP CARE CONSULTATION ---
Information from patient questionnaire entered by Eden Marsh. I have reviewed and concur with the information entered by Eden Marsh. This document represents the service I personally performed and the decisions made by me, Isabella Alford ARNP. History of Present Illness Service Date and Time: 02/24/2023 1229 Reason for Visit: New patient Chief Complaint: reports: Unrefreshed sleep, Fatigue, Frequent awakenings at night Date of Onset: 5MONTHS Usual bedtime: 10PM Time it takes to fall asleep: UP TO AN HR Snores at night: Yes (she is mouth breather and a "shallow breather" as well) Observed to quit breathing while asleep: No Sleeps alone due to snoring: No Number of times waking at night: 2-3 Reasons for waking at night: reports: Pain, Bathroom, Other (UNKNOWN). denies: Choking, Gasping for air Toss, Turn, or Twitch while sleeping: Yes Recalls having dreams: Yes Usually gets out of bed at: 7 AM Feels refreshed in the morning: No Morning headache: No Sleepy or fatigued during the day: Yes Ever fallen asleep while driving: No Takes day naps: Yes (2-4 times a wk; 1-2 hours) Dreams during day naps: No Prior sleep studies: Yes ([place] 2000-[place] -2002) Additional HPI information: I had the pleasure of seeing DENIS ESCALONA today regarding the possibility of her having a sleep disorder. Her current complaints are fatigue, frequent awakenings at night and unrefreshed sleep. Her oncologist has referred her here because she is having trouble falling asleep and staying asleep. She has terminal liver cancer and is on chemotherapy. She says she does not wake up feeling rested and is fatigued during the day. She says 25 years ago she did have a sleep study and was diagnosed with sleep apnea. She was on a CPAP for a time but then was retested and told she did not need one anymore. She has not had a CPAP or any other treatment for sleep apnea for many years. She does have several brothers who have sleep apnea and are being treated. - Parasomnia Symptoms Ever been unable to move upon waking from sleep: No Walks in sleep: No Talks in sleep: No Ever acted out dreams in sleep: No Ever felt weak in the knees when startled or emotional: No Bothered by creepy, crawly, restless sensations in legs: No Problems with memory or concentration: Yes (affected by chemotherapy) Subjective Initial Clint Sleepiness Scale score: 6 (02/24/23) Past Medical History Past Medical History: reports: Hypertension, Diabetes (type 2, borderline), Arthritis, Anxiety, Other (LIVER CANCER 2021, BREAST CANCER 2018, TORN TENDON RIGHT SHOULDER ) Social History 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 Patient is and lives in [place]. Have you smoked in the past 12 months: No Alcohol use: No Caffeine use: Yes Caffeine amount and frequency: 1 COFFEE DAILY Family History Family history of sleep disordered breathing: Yes Family Hx Sleep Apnea: Sibling: Snoring, Sleep apnea - Treated Allergies and Home Medications Known drug allergies: Yes (as listed) Drug allergies reviewed: Yes Home medication list reviewed: Yes Allergy and home medication list: Allergies adhesive Allergy (Verified 02/24/23 11:40) Unknown anastrozole Allergy (Verified 02/24/23 11:40) Unknown hydroxyzine Allergy (Verified 02/24/23 11:40) Itching vomiting lorazepam Allergy (Verified 02/24/23 11:40) Emesis meclizine Allergy (Verified 02/24/23 11:40) Emesis silver [From Tegaderm AG Mesh] Allergy (Verified 02/24/23 11:40) Unknown codeine Adverse Reaction (Verified 02/24/23 11:40) Nausea gabapentin Adverse Reaction (Verified 02/24/23 11:40) Dizziness Home Medications Medication Instructions Recorded Confirmed Last Taken Type Sertraline HCl 150 mg PO DAILY 06/27/18 02/24/23 12/02/21 History metFORMIN [Glucophage] 500 mg PO BIDWM 06/27/18 02/24/23 12/02/21 History Levothyroxine Sodium [Levoxyl] 25 mcg PO QDAC 04/16/21 02/24/23 12/02/21 History Rosuvastatin Calcium [Crestor] 20 mg PO DAILY 04/16/21 02/24/23 12/01/21 History Dulaglutide [Trulicity] 0.75 mg SQ UD 11/10/21 02/24/23 12/01/21 History Loperamide [Imodium] 2 mg PO ONCE PRN MDD 8 CAPS (16 MG) 12/24/21 02/24/23 Unknown History Metoprolol Tartrate [Lopressor] 25 mg PO BID 12/24/21 02/24/23 Unknown History Apixaban [Eliquis] 2.5 mg PO BID 01/05/22 02/24/23 Unknown History Celecoxib [CeleBREX] 100 mg PO BID 03/09/22 02/24/23 Unknown History busPIRone [Buspar] 15 mg PO DAILY 04/20/22 02/24/23 Unknown History Pregabalin [Lyrica] 150 mg PO DAILY 05/18/22 02/24/23 Unknown History Tamoxifen [Nolvadex] 20 mg PO DAILY 10/05/22 02/24/23 Unknown History Diphenoxylate/Atropine [Lomotil] See Rx Instructions .ROUTE .COMPLEX 02/24/23 02/24/23 Unknown History Hydrocodone/Acetaminophen See Rx Instructions .ROUTE .COMPLEX 02/24/23 02/24/23 Unknown History [Hydrocodone-Acetamin 2.5-325] Review of Systems Weight loss over past 5 years: 35 due to cancer Cardiovascular: reports: high blood pressure Gastrointestinal: reports: diarrhea (CAUSED BY CHEMO MEDS) Neurological: denies: headaches Ear/Nose/Throat: reports: tonsillectomy, wisdom teeth removed Musculoskeletal: reports: joint pain, back pain, joint swelling, muscle pain or cramping Physical Exam Vital signs obtained and entered by: EDEN Perez MA Blood Pressure: 126/70 (LEFT ARM) Cuff size: regular Heart Rate: 68 O2 Saturation: 93 Height: 5 ft 6 in Weight: 236 lb 12.8 oz Body Mass Index: 38.2 BMI Classification: Obese Neck circumference: 16.75 Mouth and throat: narrow oropharynx Soft palate: long Hard palate: normal Uvula: normal Uvula visualization: 25% Mallampati Class III Tongue: enlarged in size with teeth aguila on lateral edges Tonsils: absent bilaterally Neck: normal w/o lymphadenopathy or thyromegaly Heart: regular rate and rhythm Lungs: clear bilaterally Impression and Plan 1. Suspected Obstructive Sleep Apnea-Hypopnea Syndrome, as previously diagnosed and as suggested by a history of irregular snoring, frequent awakening during the night, unrefreshed sleep and cognitive impairment. I recommend proceeding to polysomnography to confirm the diagnosis and to assess severity. If the patient has significant sleep disordered breathing, a manual CPAP titration study will also be performed to find the optimal treatment pressure. I informed the patient of what the sleep studies involve and after some discussion, obtained agreement to proceed. The pathophysiology of obstructive sleep apnea-hypopnea syndrome was discussed with the patient and health risks of cardiovascular and cerebrovascular disease if not treated. Risks of drowsy driving discussed in detail and patient advised to avoid long distance driving and to door puller at the first sign of drowsiness. Patient agreed to plan. * Schedule polysomnography. * Avoid long distance driving or driving when feeling sleepy. * Avoid alcohol, sedative and muscle relaxant around bedtime. * Attempt to lose weight. * Review instructions provided by trained office staff on how to prepare for the sleep study. * Return for follow-up after sleep study completed. Counseling Topics: Weight loss health impact Plan: PSG Visit Type: In Office Time Spent with Patient (minutes): 30 Provider Statement: I spent 100% of the Face to Face Visit with the patient with greater than 50% spent counseling the patient and coordination of care.
[2023-02-24 13:39] VITALS: BP 126/70; O2SAT 93
== END 2023-02-24 12:30 | disposition home or self-care (01) ==
LOC: SC 12:29
PROVIDERS: ATTEND Nurse Practitioner Family
DX: G47.33 Obstructive sleep apnea (adult) (pediatric) (principal); C22.9 Malignant neoplasm of liver, not specified as primary or secondary; Z79.899 Other long term (current) drug therapy; E66.9 Obesity, unspecified; Z68.38 Body mass index [BMI] 38.0-38.9, adult
CPT/HCPCS: 99203; G0463; 99212

== ENCOUNTER 2023-03-18 20:33 | Outpatient (CLI) | payer MEDICARE, MEDICAID | END 2023-03-18 20:34 | disposition home or self-care (01) | LOC: SC 20:33 | PROVIDERS: ATTEND Nurse Practitioner Family | DX: G47.33 Obstructive sleep apnea (adult) (pediatric) (principal); G47.61 Periodic limb movement disorder; E66.9 Obesity, unspecified; Z68.43 Body mass index [BMI] 50.0-59.9, adult; E11.9 Type 2 diabetes mellitus without complications; I10 Essential (primary) hypertension | CPT/HCPCS: 95810 ==

== ENCOUNTER 2023-03-22 10:33 | Outpatient (CLI) | payer MEDICARE, MEDICAID ==
[2023-03-22 10:56] LABS: BASOPHILS % (AUTO) 0.7 %; EOSINOPHILS % (AUTO) 1.3 %; HCT - HEMATOCRIT 40.3 % (37.0-47.0); HGB - HEMOGLOBIN 13.1 g/dL (12.0-16.0); LYMPHOCYTES # (AUTO) 0.9 10^3/uL (1.5-3.5); LYMPHOCYTES % (AUTO) 29.5 %; MEAN CORPUSCULAR HEMOGLOBIN 30.5 pg (27.0-31.0); MEAN CORPUSCULAR HGB CONC 32.5 g/dL (32.0-36.0); MEAN CORPUSCULAR VOLUME 93.7 fL (81.0-99.0); MEAN PLATELET VOLUME 10.6 fL (7.9-10.8); MONOCYTES # (AUTO) 0.5 10^3/uL (0.0-1.0); MONOCYTES % (AUTO) 16.8 %; NEUTROPHILS # (AUTO) 1.5 10^3/uL (1.5-6.6); NEUTROPHILS % (AUTO) 51.4 %; PLT - PLATELET COUNT 135 10^3/uL (130-450); RED CELL DISTRIBUTION WIDTH 13.9 % (12.0-15.0)
[2023-03-22 11:08] LABS: CALCIUM 8.9 mg/dL (8.5-10.3); CREATININE 0.6 mg/dL (0.6-1.3)
[2023-03-22 12:16] LABS: ESTIMATED AVERAGE GLUCOSE 131 mg/dL (70-100); HEMOGLOBIN A1c% 6.2 % (4.27-6.07)
== END 2023-03-22 10:34 | disposition home or self-care (01) ==
LOC: LAB 10:33
PROVIDERS: ATTEND Orthopaedic Surgery Foot and Ankle Surgery
DX: Z01.812 Encounter for preprocedural laboratory examination (principal); E11.65 Type 2 diabetes mellitus with hyperglycemia; E11.42 Type 2 diabetes mellitus with diabetic polyneuropathy
CPT/HCPCS: 36415; 80048; 83036; 85025

== ENCOUNTER 2023-03-30 15:39 | Outpatient (CLI) | payer MEDICARE, MEDICAID ==
--- NOTE | 2023-03-30 16:14 | Sleep Patient Instructions ---
Sleep Center Visit Summary - Patient Visit Information Reason for Visit: Sleep study follow-up - Patient Instructions Instructions Attached: CPAP Additional Instructions: You are being started on CPAP therapy with pressure setting at 4-15 cmH2O. You w ill need to call the sleep care office to set up your follow up once you have your APAP machine and we will schedule a visit to check compliance and response to therapy at that time. You may call the office with any concerns about pressure feeling too low or too much for adjustment, if needed. You should contact DME supplier for any questions or concerns about mask or equipment. Please call office to schedule a follow up appointment in the sleep care office one month after obtaining new device. - Clinic Information Contact: [facility] [address] [place] [address] [email or web address] T: [phone]
--- NOTE | 2023-03-30 16:17 | SLEEP CARE CONSULTATION ---
Information from patient questionnaire entered by Lucila Marsh. I have reviewed and concur with the information entered by Lucila Marsh. This document represents the service I personally performed and the decisions made by me, Isabella Alford ARNP. History of Present Illness Service Date and Time: 03/30/20231538 Initial [place] Sleepiness Scale score: 6 Current [place] Sleepiness Scale score: 5 (03/30/23) Additional HPI information: DENIS ESCALONA returns for follow up and results of the recently performed polysomnography. The sleep study showed mild obstructive sleep apnea with an average AHI of 8.7 and morenita oxygen saturation of 87%. She had severe PLMs contributing to sleep fragmentation. I explained the pathophysiology behind obstructive sleep apnea. We then spent quite a bit of time discussing different treatment options. For mild obstructive sleep apnea, surgery and oral appliance are alternatives to nasal CPAP therapy but in moderate or severe cases, nasal CPAP is the most effective and reliable treatment. Because apnea is primarily in supine position, then positional management therapy could be effective. Methods discussed such as positioning with pillows, using a T-shirt with tennis balls in the back or commercial products that have a pillow format on back to prevent supine sleep. I reviewed the impact of weight changes on sleep apnea and strongly recommended losing weight. After some discussion, the patient opted to go with the nasal CPAP therapy. Nasal autoCPAP set at 4-15 cmH20 will be ordered with rationale explained. A manual titration study will be ordered if unable to find optimal pressure with office adjustments. I explained how CPAP machine works and what to expect when using the machine. Using CPAP every night in order to get used to it was emphasized. Patient advised to put CPAP mask on before getting into bed so as not to fall asleep without CPAP. To assist acclimation to CPAP use, it could also be used for a short time during day while reading or watching TV. The garye nt was instructed to call the CPAP supplier to discuss any mechanical problem that may occur. If the mask given is uncomfortable or is difficult to keep on through the night even with adjustment, contact the CPAP supplier as many will replace with another mask style if notified before 30 days. If snoring or perceives is not getting enough air or too much air from the machine, notify this office. Patient does not drink alcohol. Patient was cautioned about risks of drowsy driving until sleepiness symptoms resolve. Patient denies drowsy driving. Sleep Study - Results Type of Sleep Study: Polysomnography (COMPLETED 03/18/23) Prior sleep studies: Yes ([facility] 2000-[place] -2002) Polysomnography/Home Sleep Study results: IMPRESSION: The quality of the study is good. The patient had minimally reduced sleep efficiency. The sleep architecture was abnormal for sleep fragmentation and lack of slow wave sleep (N3). Respiratory monitoring showed mild obstructive sleep apnea-hypopnea (AHI = 8.7) associated with frequent arousals, oxyhemoglobin desaturation and mild hypoxia (morenita oxygen saturation of 87%). The respiratory events occurred almost exclusively during supine sleep (supine AHI = 32.4; non-supine = 4.07). Snore was mild to moderate in intensity. There was severe periodic leg movement of sleep contributing to the sleep fragmentation. Cardiac rhythm was normal sinus rhythm without significant arrhythmia. No abnormal behavior (parasomnia) observed during the night. Allergies and Home Medications Known drug allergies: Yes (as listed) Drug allergies reviewed: Yes Home medication list reviewed: Yes (no changes) Allergy and home medication list: Allergies adhesive Allergy (Verified 03/29/23 10:09) Unknown anastrozole Allergy (Verified 03/29/23 10:09) Unknown hydroxyzine Allergy (Verified 03/29/23 10:09) Itching vomiting lorazepam Allergy (Verified 03/29/23 10:09) Emesis meclizine Allergy (Verified 03/29/23 10:09) Emesis silver [From Tegaderm AG Mesh] Allergy (Verified 03/29/23 10:09) Unknown codeine Adverse Reaction (Verified 03/29/23 10:09) Nausea gabapentin Adverse Reaction (Verified 03/29/23 10:09) Dizziness Review of Systems Review of systems same as previous: Yes (NO CHANGE) Physical Exam Vital signs obtained and entered by: LUCILA Perez MA Blood Pressure: 135/72 (LEFT ARM) Cuff size: regular Heart Rate: 71 O2 Saturation: 95 Height: 5 ft 6 in Weight: 238 lb 3.2 oz Body Mass Index: 38.4 BMI Classification: Obese Impression and Plan 1. Obstructive Sleep Apnea-Hypopnea Syndrome, mild, with lowest oxygen saturation of 87%. Obviously this is the cause of the patients symptoms of unrefreshed sleep, and excessive daytime sleepiness. Positive pressure therapy could benefit hypertension, diabetes and anxiety. As mentioned above, the patient will be started on nasal autoCPAP therapy with pressure set at 4-15 cmH2 O. Compliance guidelines also reviewed. A copy of compliance guidelines will be given for reference at check out. Because the apnea is more severe supine, I instructed to avoid sleeping supine using pillow positioning until able to start CPAP use. 2. Hypoxemia, mild, with a morenita oxygen saturation of 87% and 0.2 minutes spent under 90%. The baseline oxygen saturation was normal with an average oxygen saturation of 92%. 3. Periodic limb movement, severe, that did contribute to fragmentation of patients sleep. Periodic limb movement of sleep (PLMS) is characterized by episodes of repetitive limb movements that occur during sleep and usually involve the lower limbs. The etiology is unknown. Sleep hygiene methods can also improve sleep as well as lifestyle changes such as regular exercise. Patient was advised that no treatment is needed at this time. If symptoms increase, then further evaluation is indicated. 4. Obesity, unspecified. Currently patients BMI is 38.4. Obesity increases the risk of apnea, CPAP pressure requirements and overall health risks especially cardiovascular and diabetes. Thus patient is advised to lose weight. * Nasal auto CPAP therapy, pressure at 4-15 cm H2O. * Attempt to lose weight. * Avoid alcohol consumption near bedtime. * Avoid supine sleep until using CPAP. * The patient is again cautioned about driving until sleepiness completely resolves. * Return one month after CPAP obtained. I will assess response to therapy and compliance at that time. Counseling Topics: Sleeping position, Weight loss health impact Prescriptions: Auto CPAP Visit Type: In Office Time Spent with Patient (minutes): 22 Provider Statement: I spent 100% of the Face to Face Visit with the patient with greater than 50% spent counseling the patient and coordination of care.
[2023-03-30 16:51] VITALS: BP 135/72; O2SAT 95
== END 2023-03-30 15:40 | disposition home or self-care (01) ==
LOC: SC 15:39
PROVIDERS: ATTEND Nurse Practitioner Family
DX: G47.33 Obstructive sleep apnea (adult) (pediatric) (principal); R09.02 Hypoxemia; G47.61 Periodic limb movement disorder; E66.9 Obesity, unspecified; Z68.38 Body mass index [BMI] 38.0-38.9, adult
CPT/HCPCS: 99213; G0463; 99212

== ENCOUNTER 2023-05-18 14:50 | Outpatient (CLI) | payer MEDICARE, MEDICAID | END 2023-05-18 14:51 | disposition home or self-care (01) | LOC: DI 14:50 | PROVIDERS: ATTEND Internal Medicine Hematology & Oncology | DX: C50.112 Malignant neoplasm of central portion of left female breast (principal); I77.810 Thoracic aortic ectasia; I51.7 Cardiomegaly | CPT/HCPCS: 93307 ==

== ENCOUNTER 2023-07-08 08:00 | Outpatient (CLI) | payer MEDICARE, MEDICAID | END 2023-07-08 23:59 | disposition home or self-care (01) | LOC: PC 08:00 | PROVIDERS: ATTEND Nurse Practitioner Adult Health | DX: Z51.5 Encounter for palliative care (principal); F41.8 Other specified anxiety disorders; L97.521 Non-pressure chronic ulcer of other part of left foot limited to breakdown of skin; S21.102A Unspecified open wound of left front wall of thorax without penetration into thoracic cavity, initial encounter; R53.83 Other fatigue; R06.09 Other forms of dyspnea; R26.0 Ataxic gait; C78.7 Secondary malignant neoplasm of liver and intrahepatic bile duct; C79.51 Secondary malignant neoplasm of bone; C34.90 Malignant neoplasm of unspecified part of unspecified bronchus or lung; C77.2 Secondary and unspecified malignant neoplasm of intra-abdominal lymph nodes; Z59.9 Problem related to housing and economic circumstances, unspecified; Z63.9 Problem related to primary support group, unspecified | CPT/HCPCS: 99215 ==

== ENCOUNTER 2023-08-02 08:00 | Outpatient (CLI) | payer MEDICARE, MEDICAID | END 2023-08-02 08:01 | disposition home or self-care (01) | LOC: PC 08:00 | PROVIDERS: ATTEND Nurse Practitioner Adult Health | DX: Z51.5 Encounter for palliative care (principal); L03.032 Cellulitis of left toe; G89.3 Neoplasm related pain (acute) (chronic); F41.8 Other specified anxiety disorders; R53.83 Other fatigue; R53.1 Weakness; C78.7 Secondary malignant neoplasm of liver and intrahepatic bile duct; C79.51 Secondary malignant neoplasm of bone; C50.919 Malignant neoplasm of unspecified site of unspecified female breast; E83.42 Hypomagnesemia; Z71.89 Other specified counseling; Z86.16 Personal history of COVID-19; Z63.9 Problem related to primary support group, unspecified | CPT/HCPCS: 99215 ==

== ENCOUNTER 2023-08-03 14:50 | Outpatient (CLI) | payer MEDICARE, MEDICAID ==
--- NOTE | 2023-08-03 15:16 | Sleep Patient Instructions ---
Sleep Center Visit Summary - Patient Visit Information Reason for Visit: First compliance follow-up - Patient Instructions Additional Instructions: You were here for follow up of CPAP therapy. You will be continued on CPAP therapy with pressure at 6-10 cmH2O. Please let us know if the pressure change is uncomfortable and we can make further adjustments of the pressure. You should follow up with sleep care in 1-2 months. You may contact us sooner for any questions or concerns. - Clinic Information Contact: [facility] [address] [place] [address] [email or web address] T: [phone]
--- NOTE | 2023-08-03 15:25 | SLEEP CARE CONSULTATION ---
Information from patient questionnaire entered by Eden Marsh. I have reviewed and concur with the information entered by Eden Marsh. This document represents the service I personally performed and the decisions made by , Isabella Alford ARNP. History of Present Illness Service Date and Time: 08/03/2023 1450 Previous diagnosis: Mild, Obstructive Sleep Apnea-Hypopnea Syndrome AHI: 8.7 (03/18/23) Reason for follow up: first compliance Equipment type: CPAP (RESMED Airsense 11, S/U 05/13/23) Equipment obtained from: Other ([facility]; got initial supplies) Mask style: Nasal Backup mask available: No Last cushion change: 2 months Prior sleep studies: Yes ([facility] 2000-OR ) Type of Sleep Study: Polysomnography (03/18/2023) HPI additional information: DENIS ESCALONA was diagnosed to have mild, AHI 8.7, obstructive sleep apnea- hypopnea syndrome and returned today for CPAP therapy first compliance follow- up. Sleep Study - Results Type of Sleep Study: Polysomnography Prior sleep studies: Yes ([facility] 2000-OR -2002) CPAP Compliance Data - Data Reviewed with Patient Average duration of nightly device use: 5 hours 58 minutes Compliance rate %: 70 (/ days used; 06/21/23-07/20/23) Current pressure setting (cmH2O): 4-15 (median 6.3, avg 9.5, max 10.6) Average residual AHI: 1.2 Central apnea: 0.3 Obstructive apnea: 0.5 Hypopnea: 0.2 Average large leak: 5.6 L/min Subjective Missed days of use due to: reports: illness (on Chemo treatments), travel Patient concerns: reports: dry mouth, nose, throat (dry nose), epistaxis (little bit of bloody mucus). denies: aerophagia, mask discomfort, air blowing in eyes, mask leak noise, condensation in mask/hose, nasal congestion Observed to snore while using device: No Current pressure setting perceived as: comfortable On therapy, patient: reports: sleeping better, awakening more refreshed, more rested overall. denies: drowsiness while driving Initial [place] Sleepiness Scale score: 6 Current [place] Sleepiness Scale score: 4 (08/03/23) Allergies and Home Medications Known drug allergies: Yes (as listed) Drug allergies reviewed: Yes Home medication list reviewed: Yes (losartan, Enherto, Magnesium Glycinate) Allergy and home medication list: Allergies adhesive Allergy (Verified 08/01/23 09:21) Unknown anastrozole Allergy (Verified 08/01/23 09:21) Unknown hydroxyzine Allergy (Verified 08/01/23 09:21) Itching vomiting lorazepam Allergy (Verified 08/01/23 09:21) Emesis meclizine Allergy (Verified 08/01/23 09:21) Emesis silver [From Tegaderm AG Mesh] Allergy (Verified 08/01/23 09:21) Unknown codeine Adverse Reaction (Verified 08/01/23 09:21) Nausea gabapentin Adverse Reaction (Verified 08/01/23 09:21) Dizziness Review of Systems Review of systems same as previous: No (NEW CHEMO, KNEE RPLACEMENT 04/13/23) Physical Exam Vital signs obtained and entered by: EDEN Perez MA Blood Pressure: 155/65 (RIGHT ARM) Cuff size: long Heart Rate: 78 O2 Saturation: 94 Height: 5 ft 6 in Weight: 248 lb Body Mass Index: 40.0 BMI Classification: Morbidly Obese Impression and Plan 1. Obstructive Sleep Apnea-Hypopnea Syndrome, mild, with good treatment compliance and good apnea control. On CPAP therapy, the patient has better sleep quality and is more rested overall. She has not been able to get any supplies and has been told twice that they would be coming. I advised her to try again because sometimes the DME will wait until her compliance follow up before sending supplies initially. She voiced understanding. She feels like the pressure is too low when putting on her mas initially. I will increase ramp starting pressure to 5 cmH2O. The patients pressure will be changed to autoCPAP 6-10 cmH20 to reflect pressure being used. Patient advised to contact me if pressure change is uncomfortable so that it can be adjusted. Goals for apnea control discussed. She has been having a very dry nose with some bloody mucus. She is on chemotherapy that does dry her out. I reviewed her humidity settings and reduced her heated hose since her humidity is set at 4. She may adjust on own or call for our assistance to decrease the nasal dryness. She voiced understanding. Patient's apnea severity and rationale for treatment to reduce apnea, improve sleep quality and reduce cardiovascular and cerebrovascular events was reviewed. I also reviewed the benefit of consistent device use of CPAP for hypertension, diabetes and anxiety. 2. Obesity, unspecified. Currently patients BMI is 40. Obesity increases the risk of apnea, CPAP pressure requirements and overall health risks especially cardiovascular and diabetes. Thus patient is advised to lose weight. * Change auto CPAP pressure to 6-10 cmH2O * Increase ramp starting pressure to 5 cmH2O * Notify me if snoring with mask or feeling that the pressure is too much or too little * Attempt to lose weight * Call this office if any problems using CPAP * Return for follow up in 1-2 months, or sooner if concerns arise Adjust device pressure to (cmH2O): 6-10 Counseling Topics: Spare mask, Weight loss health impact Follow up with Sleep Care in: 1-2 months Visit Type: In Office Time Spent with Patient (minutes): 25 Provider Statement: I spent 100% of the Face to Face Visit with the patient with greater than 50% spent counseling the patient and coordination of care.
[2023-08-03 15:31] VITALS: BP 155/65; O2SAT 94
== END 2023-08-03 14:51 | disposition home or self-care (01) ==
LOC: SC 14:50
PROVIDERS: ATTEND Nurse Practitioner Family
DX: G47.33 Obstructive sleep apnea (adult) (pediatric) (principal); E66.01 Morbid (severe) obesity due to excess calories; Z68.41 Body mass index [BMI] 40.0-44.9, adult
CPT/HCPCS: 99213; G0463; 99212

== ENCOUNTER 2023-08-08 11:16 | Emergency (ER) | payer MEDICARE, MEDICAID ==
--- NOTE | 2023-08-08 11:55 | ED Physician Documentation ---
PD HPI ABD PAIN - Stated complaint Stated Complaint: STOMACH PX,N/D,CHILLS - Chief complaint Chief Complaint: Abd Pain - History obtained from History obtained from: Patient - Additional information Additional information: 68-year-old woman with longstanding breast cancer metastatic. Her most recent chemotherapy started to fail after 17 months and she developed worsening metastases in her liver abdominal lymph nodes, right pelvic bones, and possibly the lung. She was switched to Enhertu, with first infusion last Tuesday. During the infusion she started to feel sick with dry heaves and since then has had queasiness, diarrhea, and right upper quadrant pain. She has no history of abdominal surgeries. She has not been vomiting. She has been feeling chilled but no fevers. PD PAST MEDICAL HISTORY - Past Medical History Past Medical History: Yes Cardiovascular: Hypertension, High cholesterol, Peripheral Vascular Disease, Murmur Respiratory: Sleep apnea, CPAP use Neuro: Headaches, Peripheral neuropathy, Fainting Endocrine/Autoimmune: Type 2 diabetes GI: GERD, Cholelithiasis MORTGAGE FUNDER: Miscarriage(s), Breast cancer : None HEENT: Chronic vision loss, Chronic sinusitis Psych: Anxiety Musculoskeletal: Osteoarthritis Derm: Other - Past Surgical History Past Surgical History: Yes Ortho: Hip replacement, Knee replacement, Spine surgery /MORTGAGE FUNDER: Tubal ligation, Other - Present Medications Home Medications: Ambulatory Orders Medication Instructions Recorded Confirmed Sertraline HCl 150 mg PO DAILY 06/27/18 08/03/23 metFORMIN [Glucophage] 500 mg PO BIDWM 06/27/18 08/03/23 Levothyroxine Sodium [Levoxyl] 25 mcg PO QDAC 04/16/21 08/03/23 Dulaglutide [Trulicity] 0.75 mg SQ UD 11/10/21 08/03/23 Loperamide [Imodium] 2 mg PO ONCE PRN MDD 8 CAPS (16 MG) 12/24/21 08/03/23 Apixaban [Eliquis] 2.5 mg PO BID 01/05/22 08/03/23 Celecoxib [CeleBREX] 100 mg PO BID 03/09/22 08/03/23 busPIRone [Buspar] 15 mg PO DAILY 04/20/22 08/03/23 Pregabalin [Lyrica] 150 mg PO DAILY 05/18/22 08/03/23 Tamoxifen [Nolvadex] 20 mg PO DAILY 10/05/22 08/03/23 Diphenoxylate/Atropine [Lomotil] See Rx Instructions .ROUTE .COMPLEX 02/24/23 08/03/23 Losartan [Cozaar] 50 mg PO DAILY 07/26/23 08/03/23 Fam-Trastuzumab Deruxtecn-Nxki See Rx Instructions .ROUTE .COMPLEX 08/03/23 08/03/23 [Enhertu] Magnesium Glycinate 120 mg PO TID 08/04/23 08/04/23 - Allergies Allergies/Adverse Reactions: Allergies Allergy/AdvReac Type Severity Reaction Status Date / Time adhesive Allergy Unknown Verified 08/08/23 11:26 anastrozole Allergy Unknown Verified 08/08/23 11:26 hydroxyzine Allergy Itching Verified 08/08/23 11:26 lorazepam Allergy Emesis Verified 08/08/23 11:26 meclizine Allergy Emesis Verified 08/08/23 11:26 silver Allergy Unknown Verified 08/08/23 11:26 [From Tegaderm AG Mesh] codeine AdvReac Nausea Verified 08/08/23 11:26 gabapentin AdvReac Dizziness Verified 08/08/23 11:26 - Social History Does the pt smoke?: No Smoking Status: Never smoker Does the pt drink ETOH?: No Does the pt have substance abuse?: No - Immunizations Immunizations are current?: Yes - POLST Patient has POLST: No POLST Status: Full Code PD ED PE NORMAL - Vitals Vital signs reviewed: Yes - General General: Alert and oriented X 3, No acute distress - Cardiac Cardiac: RRR, No murmur - Respiratory Respiratory: No respiratory distress, Clear bilaterally - Abdomen Abdomen: Other (Mild tenderness in the right upper quadrant without surgical signs) - Neuro Neuro: Alert and oriented X 3, Normal speech Results - Vitals Vitals: Vital Signs - 24 hr 08/08/23 08/08/23 08/08/23 11:27 11:59 13:34 Temperature 36.9 C Heart Rate 76 57 L 70 Respiratory 20 16 16 Rate Blood Pressure 119/62 145/76 H 167/76 H O2 Saturation 97 98 96 08/08/23 15:18 Temperature Heart Rate 73 Respiratory 20 Rate Blood Pressure 111/54 L O2 Saturation 94 Oxygen O2 Source Room air - Labs Labs: Laboratory Tests 08/08/23 08/08/23 11:56 11:56 WBC 2.8 L RBC 3.94 L Hgb 11.8 L Hct 36.9 L MCV 93.7 MCH 29.9 MCHC 32.0 RDW 14.6 Plt Count 123 L MPV 10.5 Neut # (Auto) Not Reportable Lymph # (Auto) Not Reportable [place] # (Auto) Not Reportable Eos # (Auto) Not Reportable Baso # (Auto) Not Reportable Absolute Nucleated RBC Not Reportable Total Counted 100 Band Neuts % (Manual) 1 Reactive Lymphs % (Man) 6 Abnorm Lymph % (Manual) 0 Nucleated RBC % Not Reportable Neutrophils # (Manual) 1.6 Lymphocytes # (Manual) 0.8 L Monocytes # (Manual) 0.3 Eosinophils # (Manual) 0.1 Basophils # (Manual) 0.0 Differential Comment MANUAL DIFFERENTIAL RBC Morph Micro Appear 2+ ANISOCYTOSIS Sodium 140 Potassium 3.6 Chloride 107 Carbon Dioxide 25 Anion Gap 8.0 BUN 29 H Creatinine 0.7 Estimated GFR (MDRD) 83 L Glucose 77 Calcium 9.5 Total Bilirubin 0.8 AST 31 ALT 17 Alkaline Phosphatase 65 Total Protein 6.5 Albumin 3.8 Globulin 2.7 Albumin/Globulin Ratio 1.4 Lipase 48 - Rads (name of study) CT abdomen and pelvis really showing no significant interval change from prior CT a few weeks ago. No acute abnormality. Relevant Findings:: Final report received, EMP independent interpretation of test PD Medical Decision Making - ED course ED course: 28-kxou-iue[age]-old woman has been feeling poorly since new chemotherapy last week. She has mild right upper quadrant tenderness and a CT was done without pertinent positive acute findings. CBC and CMP were unremarkable. She was administered a dose of pain medication here at her request towards the end of the visit, she did not want anything narcotic earlier but did not get much help from Toradol. She will be seeing her oncologist next week. Presume given the timing that it is related to her Enhertu. Departure - Departure Disposition: 01 Home, Self Care Clinical Impression: Metastatic breast cancer Abdominal pain Qualifiers: Abdominal location: right upper quadrant Qualified Code(s): R10.11 - Right upper quadrant pain Condition: Good Record reviewed to determine appropriate education?: Yes Comments: Your CT scan does not really show any interval change since a few weeks ago, and your labs are fairly stable with the exception of your white count and your platelet count having dropped a bit likely due to the new Enhertu. Follow-up with your oncologist next week as scheduled for further evaluation and treatment. Return for new or worsening symptoms. Forms: PCP List Discharge Date/Time: 08/08/23 15:19
[2023-08-08] MEDS ORDERED: iohexoL-300 100 ML VIAL ONE (12:00)
[2023-08-08 12:10] LABS: BASOPHILS % (AUTO) 0.7 %; EOSINOPHILS % (AUTO) 2.1 %; HCT - HEMATOCRIT 36.9 % (37.0-47.0); HGB - HEMOGLOBIN 11.8 g/dL (12.0-16.0); MEAN CORPUSCULAR HEMOGLOBIN 29.9 pg (27.0-31.0); MEAN CORPUSCULAR VOLUME 93.7 fL (81.0-99.0); MEAN PLATELET VOLUME 10.5 fL (7.9-10.8); MONOCYTES % (AUTO) 8.1 %; NEUTROPHILS % (AUTO) 59.7 %; PLT - PLATELET COUNT 123 10^3/uL (130-450); RED BLOOD COUNT 3.94 10^6/uL (4.20-5.40); RED CELL DISTRIBUTION WIDTH 14.6 % (12.0-15.0); WHITE BLOOD COUNT 2.8 x10^3/uL (4.8-10.8)
[2023-08-08] MEDS: ONDANSETRON 4 MG/2 ML VIAL IVP STA (12:10)
[2023-08-08 12:13] LABS: ABNORMAL LYMPHS % (MANUAL) 0 %
[2023-08-08] MEDS: SODIUM CHLORIDE 0.9% 1,000 ML IV STA (12:13)
[2023-08-08] MEDS: KETOROLAC 15 MG/ML VIAL IVP STA (12:13)
[2023-08-08 12:38] LABS: BAND NEUTROPHILS % (MANUAL) 1 %; BASOPHILS % (MANUAL) 1 %; EOSINOPHILS # (MANUAL) 0.1 10^3/uL (0-0.7); LYMPHOCYTES # (MANUAL) 0.8 10^3/uL (1.5-3.5); LYMPHOCYTES % (MANUAL) 22 %; MONOCYTES # (MANUAL) 0.3 10^3/uL (0.0-1.0); NEUTROPHILS # (MANUAL) 1.6 10^3/uL (1.5-6.6); REACTIVE LYMPHS % (MANUAL) 6 %
[2023-08-08 12:40] LABS: RBC MORPHOLOGY (MULTIPLE) 2+ ANISOCYTOSIS (NORMAL)
[2023-08-08 12:41] LABS: DIFFERENTIAL COMMENT MANUAL DIFFERENTIAL
[2023-08-08 13:10] LABS: ALBUMIN 3.8 g/dL (3.2-5.5); ALBUMIN/GLOBULIN RATIO 1.4 (1.0-2.2); BILIRUBIN,TOTAL 0.8 mg/dL (0.2-1.0); CALCIUM 9.5 mg/dL (8.5-10.3); CREATININE 0.7 mg/dL (0.6-1.3); POTASSIUM 3.6 mmol/L (3.5-4.5); TOTAL PROTEIN 6.5 g/dL (6.4-8.9)
--- NOTE | 2023-08-08 14:45 | CT Report ---
PROCEDURE: Abdomen/Pelvis W INDICATIONS: RUQ pain CONTRAST: Omni 300 100ml TECHNIQUE: After the administration of intravenous contrast, a CT scan of the abdomen and pelvis was performed. Images were recorded and evaluated at appropriate window settings. Reformats: coronal and sagittal. F or radiation dose reduction, the following was used: automated exposure control, adjustment of mA and /or kV according to patient size. COMPARISON: CT abdomen pelvis 07/19/2023, 04/25/2023, 07/07/2018. FINDINGS: Image quality: Diagnostic. Lower chest: Unremarkable. Liver: Subtle hypodense focus in the left lobe liver, (2/38); and right lobe of the liver, (2/47), un changed. Enhancing focus or perfusion abnormality in the right lobe of the liver, (2/37), similar. Gallbladder and biliary tree: Cholelithiasis without wall thickening. No biliary dilation. Spleen: No splenomegaly. Pancreas: No pancreatic ductal dilation. No peripancreatic fluid collection. Adrenals: No adrenal nodule. Kidneys and ureters: No hydronephrosis. No renal cystic lesion which requires follow up. No solid mas s. Stomach, bowel and peritoneum: No bowel distension. No pathologic free fluid. Lymph nodes: -Left periaortic node measuring 3.5 x 1.4 cm, (2/54), unchanged in the short-term interval and previo usly 2.5 x 1.5 cm on 04/25/2023. -Left common iliac node measuring is 0.9 cm (/83), previously 0.9 cm on 04/25/2023. -Small periportal lymph nodes. Vessels: No infrarenal aortic aneurysm. Extensive calcified plaque. 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 PELVIS Reproductive organs: Anteverted uterus. Bladder: Unremarkable. Pelvic lymph nodes: No pelvic adenopathy by size criteria. Bones: Heterogeneous sclerosis at the bilateral pubic bones is unchanged. Right hip arthroplasty. Yessy m Bosch artifact. Prior fracture at the right inferior pubic ramus. Exaggerated lumbar spine lordos is. Severe left hip DJD. Other: Fat-containing umbilical hernia. IMPRESSION: 1. No acute abnormality identified. No free fluid. 2. Hypodense foci in the left and right liver. Indeterminate. This could represent metastatic disease . MRI liver with IV contrast would be helpful for further evaluation. 3. Enlarged left para-aortic selam conglomerate measuring 3.5 cm is unchanged in the short-term inter jaime but increased compared to April 2023. 4. Heterogeneous sclerosis at the bilateral pubic bones most consistent with metastatic disease. Not significant change. 5. Multiple gallstones. Reviewed by: Raul Joe MD on 08/08/2023 2:44 PM PDT Approved by: Raul Joe MD on 08/08/2023 2:44 PM PDT Station ID: [id number]
[2023-08-08] MEDS: HYDROcod/ACETAM 5/325 MG TABLET PO STA (15:13)
[2023-08-08 15:24] VITALS: BP 111/54; O2SAT 94
[2023-08-08] MEDS: iohexoL-300 100 ML VIAL IVP ONE (16:41)
== END 2023-08-08 15:19 | disposition home or self-care (01) ==
LOC: ED 11:16
DX: R10.11 Right upper quadrant pain (principal); R11.0 Nausea; C50.919 Malignant neoplasm of unspecified site of unspecified female breast; C78.7 Secondary malignant neoplasm of liver and intrahepatic bile duct; C77.2 Secondary and unspecified malignant neoplasm of intra-abdominal lymph nodes; C79.51 Secondary malignant neoplasm of bone; Z79.899 Other long term (current) drug therapy
CPT/HCPCS: 36415; 74177; 80053; 83690; 85025; 96374; 96375; 99284; A9270; Q9967

== ENCOUNTER 2023-08-09 08:00 | Outpatient (CLI) | payer MEDICARE, MEDICAID | END 2023-08-09 23:59 | disposition home or self-care (01) | LOC: PC 08:00 | PROVIDERS: ATTEND Nurse Practitioner Adult Health | DX: Z51.5 Encounter for palliative care (principal); C50.919 Malignant neoplasm of unspecified site of unspecified female breast; E11.40 Type 2 diabetes mellitus with diabetic neuropathy, unspecified | CPT/HCPCS: 99426 ==

== ENCOUNTER 2023-08-23 08:00 | Outpatient (CLI) | payer MEDICARE, MEDICAID | END 2023-08-23 23:59 | disposition home or self-care (01) | LOC: PC 08:00 | PROVIDERS: ATTEND Nurse Practitioner Adult Health | DX: Z51.5 Encounter for palliative care (principal); R06.02 Shortness of breath; R11.0 Nausea; R10.9 Unspecified abdominal pain; L27.0 Generalized skin eruption due to drugs and medicaments taken internally; K52.1 Toxic gastroenteritis and colitis; D70.1 Agranulocytosis secondary to cancer chemotherapy; T45.1X5A Adverse effect of antineoplastic and immunosuppressive drugs, initial encounter; Z79.899 Other long term (current) drug therapy; R63.0 Anorexia; R53.83 Other fatigue; R63.4 Abnormal weight loss; C50.919 Malignant neoplasm of unspecified site of unspecified female breast; C78.7 Secondary malignant neoplasm of liver and intrahepatic bile duct; K52.9 Noninfective gastroenteritis and colitis, unspecified; F41.8 Other specified anxiety disorders; L03.032 Cellulitis of left toe | CPT/HCPCS: 99215 ==

== ENCOUNTER 2023-09-02 10:30 | Emergency (ER) | payer MEDICARE, MEDICAID ==
--- NOTE | 2023-09-02 11:12 | ED Physician Documentation ---
History of Present Illness - Stated complaint Stated Complaint: - Chief complaint Chief Complaint: Abd Pain - Additonal information Additional information: 68-year-old female with history of hypertension, hypercholesterolemia, peripheral vascular disease, heart murmur, peripheral neuropathy, type 2 diabetes, cholelithiasis, osteoarthritis Patient currently undergoing treatment with Dr. Ott for left breast cancer with mets to liver presents emergency department for right-sided abdominal pain and multiple episodes of diarrhea. She is also on antibiotics right now for MRSA infection and 3 of her toes she has been on this antibiotic now for the last 3 days. She says she recently changed chemo for her breast cancer and has been feeling quite ill since this chemo change and so she is unsure if this is a side effect of the chemo versus side effect of the antibiotics versus possible C. difficile. She started having more persistent diarrhea yesterday she had about 10 episodes of diarrhea today and multiple episodes during the middle the night and is now complaining of right-sided abdominal pain. No recent fevers or chills. 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(s), Breast cancer : None HEENT: Chronic vision loss, Chronic sinusitis Psych: Anxiety Musculoskeletal: Osteoarthritis Derm: Other - Past Surgical History Past Surgical History: Yes Ortho: Hip replacement, Knee replacement, Spine surgery /UTILITY WORKER: Tubal ligation, Other - Present Medications Home Medications: Ambulatory Orders Medication Instructions Recorded Confirmed Sertraline HCl 150 mg PO DAILY 06/27/18 09/02/23 metFORMIN [Glucophage] 500 mg PO BIDWM 06/27/18 09/02/23 Levothyroxine Sodium [Levoxyl] 25 mcg PO QDAC 04/16/21 09/02/23 Dulaglutide [Trulicity] 0.75 mg SQ UD 11/10/21 09/02/23 Loperamide [Imodium] 2 mg PO ONCE PRN MDD 8 CAPS (16 MG) 12/24/21 09/02/23 Apixaban [Eliquis] 2.5 mg PO BID 01/05/22 09/02/23 Celecoxib [CeleBREX] 100 mg PO BID 03/09/22 09/02/23 busPIRone [Buspar] 15 mg PO DAILY 04/20/22 09/02/23 Pregabalin [Lyrica] 150 mg PO DAILY 05/18/22 09/02/23 Tamoxifen [Nolvadex] 20 mg PO DAILY 10/05/22 09/02/23 Diphenoxylate/Atropine [Lomotil] See Rx Instructions .ROUTE .COMPLEX 02/24/23 09/02/23 Losartan [Cozaar] 50 mg PO DAILY 07/26/23 09/02/23 Fam-Trastuzumab Deruxtecn-Nxki See Rx Instructions .ROUTE .COMPLEX 08/03/23 09/02/23 [Enhertu] Magnesium Glycinate 120 mg PO TID 08/04/23 09/02/23 Amoxicillin 500 mg PO TID 10 Days #30 cap 08/29/23 09/02/23 clindamycin HCL [Clindamycin HCl] 300 mg PO TID 10 Days #30 cap 08/29/23 09/02/23 OLANZapine [Zyprexa] 2.5 mg PO UD 08/30/23 09/02/23 Pregabalin 150 mg PO TID 09/02/23 09/02/23 Sulfamethox/Trimeth 800/160 1 tablet PO BID 5 Days #10 tablet 09/02/23 [Bactrim Ds] - Allergies Allergies/Adverse Reactions: Allergies Allergy/AdvReac Type Severity Reaction Status Date / Time adhesive Allergy Unknown Verified 09/02/23 10:35 anastrozole Allergy Unknown Verified 09/02/23 10:35 hydroxyzine Allergy Itching Verified 09/02/23 10:35 lorazepam Allergy Emesis Verified 09/02/23 10:35 meclizine Allergy Emesis Verified 09/02/23 10:35 silver Allergy Unknown Verified 09/02/23 10:35 [From Tegaderm AG Mesh] codeine AdvReac Nausea Verified 09/02/23 10:35 gabapentin AdvReac Dizziness Verified 09/02/23 10:35 - Social History Does the pt smoke?: No Smoking Status: Never smoker Does the pt drink ETOH?: No Does the pt have substance abuse?: No - Immunizations Immunizations are current?: Yes - POLST Patient has POLST: No POLST Status: Full Code PD ED PE NORMAL - Vitals Vital signs reviewed: Yes - General General: Alert and oriented X 3, No acute distress, Well developed/nourished - HEENT HEENT: Atraumatic - Neck Neck: Supple, no meningeal sign - Cardiac Cardiac: RRR, Other (murmur) - Respiratory Respiratory: No respiratory distress, Clear bilaterally - Abdomen Abdomen: Soft, Non distended, No organomegaly, Other (Hyperactive bowel sounds, right upper and right lower quadrant tenderness with palpation) - Back Back: No CVA TTP - Derm Derm: Normal color, Warm and dry Results - Vitals Vitals: Vital Signs - 24 hr 09/02/23 09/02/23 09/02/23 10:36 13:09 15:00 Temperature 36.2 C L Heart Rate 73 61 60 Respiratory 16 16 Rate Blood Pressure 156/73 H 109/53 L 174/83 H O2 Saturation 97 94 96 09/02/23 16:38 Temperature 36.5 C Heart Rate 63 Respiratory 16 Rate Blood Pressure 135/89 H O2 Saturation 95 Oxygen O2 Source Nasal cannula - Labs Labs: Laboratory Tests 09/02/23 09/02/23 09/02/23 11:45 12:08 12:18 WBC 3.3 L RBC 3.67 L Hgb 10.9 L Hct 34.9 L MCV 95.1 MCH 29.7 MCHC 31.2 L RDW 15.1 H Plt Count 117 L MPV 10.8 Neut # (Auto) 2.0 Lymph # (Auto) 0.7 L [place] # (Auto) 0.5 Eos # (Auto) 0.1 Baso # (Auto) 0.0 Absolute Nucleated RBC 0.00 Nucleated RBC % 0.0 Sodium Potassium Chloride Carbon Dioxide Anion Gap BUN Creatinine Estimated GFR (MDRD) Glucose Calcium Magnesium Total Bilirubin AST ALT Alkaline Phosphatase Total Protein Albumin Globulin Albumin/Globulin Ratio Lipase Nasal Adenovirus (PCR) NOT DETECTED Nasal B. parapertussis DNA (PCR) NOT DETECTED Nasal Coronavir 229E PCR NOT DETECTED Nasal Coronavir HKU1 PCR NOT DETECTED Nasal Coronavir NL63 PCR NOT DETECTED Nasal Coronavir OC43 PCR NOT DETECTED Nasal Enterovir/Rhinovir PCR NOT DETECTED Nasal Influenza B PCR NOT DETECTED Nasal Influenza A PCR NOT DETECTED Nasal Parainfluen 1 PCR NOT DETECTED Nasal Parainfluen 2 PCR NOT DETECTED Nasal Parainfluen 3 PCR NOT DETECTED Nasal Parainfluen 4 PCR NOT DETECTED Nasal RSV (PCR) NOT DETECTED Nasal B.pertussis DNA PCR NOT DETECTED Nasal C.pneumoniae (PCR) NOT DETECTED Luis Human Metapneumo PCR NOT DETECTED Nasal M.pneumoniae (PCR) NOT DETECTED Nasal SARS-CoV-2 (PCR) NOT DETECTED Stl C. diff Tox B Gene NEGATIVE 09/02/23 12:18 WBC RBC Hgb Hct MCV MCH MCHC RDW Plt Count MPV Neut # (Auto) Lymph # (Auto) [place] # (Auto) Eos # (Auto) Baso # (Auto) Absolute Nucleated RBC Nucleated RBC % Sodium 141 Potassium 3.9 Chloride 110 Carbon Dioxide 26 Anion Gap 5.0 L BUN 18 Creatinine 0.7 Estimated GFR (MDRD) 83 L Glucose 107 H Calcium 8.9 Magnesium 1.3 L Total Bilirubin 0.4 AST 25 ALT 16 Alkaline Phosphatase 62 Total Protein 6.2 L Albumin 3.5 Globulin 2.7 Albumin/Globulin Ratio 1.3 Lipase 41 Nasal Adenovirus (PCR) Nasal B. parapertussis DNA (PCR) Nasal Coronavir 229E PCR Nasal Coronavir HKU1 PCR Nasal Coronavir NL63 PCR Nasal Coronavir OC43 PCR Nasal Enterovir/Rhinovir PCR Nasal Influenza B PCR Nasal Influenza A PCR Nasal Parainfluen 1 PCR Nasal Parainfluen 2 PCR Nasal Parainfluen 3 PCR Nasal Parainfluen 4 PCR Nasal RSV (PCR) Nasal B.pertussis DNA PCR Nasal C.pneumoniae (PCR) Luis Human Metapneumo PCR Nasal M.pneumoniae (PCR) Nasal SARS-CoV-2 (PCR) Stl C. diff Tox B Gene - Rads (name of study) Abdomen pelvis CT with Relevant Findings:: Final report received, EMP independent interpretation of test, Other (No acute CT findings visualized although it is limited due to dense metal artifact of the right total hip arthroplasty.) PD Medical Decision Making - ED course ED course: 68-year-old female presents emergency department for generalized unwell feeling and multiple episodes of diarrhea with right-sided abdominal pain. Labs have been complete for further evaluation she does appear to have leukopenia which I would suspect is from her chemo, white count 3.3, this appears to be at patient's baseline according to looking at previous labs. She also has mild anemia, hemoglobin 10.9 which again appears to be within normal limits of patient's baseline while undergoing chemo. hypomagnesemia, 1.3. She was given 2 g IV magnesium here in the emergency department for supplementation. Kidney function appears to be within normal limits. Stool sample was sent for rapid C. difficile which was found to be negative and respiratory panel was also complete which was also found to be negative. CT abdomen pelvis is complete for further evaluation of her right sided abdominal pain And no acute findings were visualized and shows hepatic liver ma ss lesions which is already known and it looks like it has slightly diminished in size compared to previous CT. Stable retroperitoneal mild adenopathy. Right lower quadrant pelvis is poorly visualized due to the metal artifact from her total right hip arthroplasty. Given that patient was started on clindamycin and on amoxicillin by wound care Dr. Ott 3 days ago for MRSA I looked at microbiology results and it appears that patient is resistant to tetracycline which is why she was started on clindamycin and amoxicillin. She does not have any acute significant active signs of infection of the toes that she is currently being treated for for MRSA but I do believe that she should continue with antibiotics we should switch to Bactrim. I attempted to get a hold of patient's oncologist but was unsuccessful as he is not currently on-call at this point in time. Patient is already taking loperamide at home she has not taken her antibiotics this morning. I believe it is okay for patient to take a break from her antibiotics for 1 day and to restart on Bactrim tomorrow I have sent the prescription of Bactrim to her preferred pharmacy we have placed new dressings over the 3 toes that she is currently being treated for with the wound clinic we have applied some Band-Aids with mupirocin. Patient is told to have her labs checked this Tuesday as Bactrim can be quite damaging and hard to the kidneys patient was told to hold her potassium supplement while taking the Bactrim and if she develops any worsening symptoms or any signs of kidney failure which she was taught to come back to the emergency department. Departure - Departure Disposition: Home, Self Care Clinical Impression: Hypomagnesemia, Diarrhea Instructions: Abdominal Pain, ED Diet Vomiting Diarrhea Prescriptions: Sulfamethox/Trimeth 800/160 [Bactrim Ds] 1 tablet PO BID 5 Days #10 tablet Comments: Thank you for trusting us with your care. We have completed labs we have given you 1 L of IV fluids and we have found your magnesium to be slightly on the low side and have given you some IV magnesium as well. We have also completed a CT scan you are not seeing any emergent causes to your diarrhea at this point in time I do believe that it is due to the new antibiotics that you are on for the MRSA infection in your toes. For now we will hold off on taking the clindamycin and amoxicillin. I have started you on an antibiotic called Bactrim you will take 1 pill twice a day for the next 5 days and I really want you to have your labs rechecked first thing Tuesday morning if you are able to. Bactrim can interfere with potassium So for now do not take any additional potassium supplements while you are taking the Bactrim. Please have your labs checked first thing Tuesday morning to check your kidney function. Please come back to the emergency department if you are starting to notice decreased urinary output, kidney pain or any other concerning symptoms Forms: PCP List Discharge Date/Time: 09/02/23 16:38
[2023-09-02 12:29] LABS: BASOPHILS % (AUTO) 0.3 %; EOSINOPHILS # (AUTO) 0.1 10^3/uL (0.0-0.7); EOSINOPHILS % (AUTO) 2.8 %; HCT - HEMATOCRIT 34.9 % (37.0-47.0); HGB - HEMOGLOBIN 10.9 g/dL (12.0-16.0); LYMPHOCYTES # (AUTO) 0.7 10^3/uL (1.5-3.5); LYMPHOCYTES % (AUTO) 19.9 %; MEAN CORPUSCULAR HEMOGLOBIN 29.7 pg (27.0-31.0); MEAN CORPUSCULAR HGB CONC 31.2 g/dL (32.0-36.0); MEAN CORPUSCULAR VOLUME 95.1 fL (81.0-99.0); MEAN PLATELET VOLUME 10.8 fL (7.9-10.8); MONOCYTES # (AUTO) 0.5 10^3/uL (0.0-1.0); MONOCYTES % (AUTO) 14.1 %; NEUTROPHILS % (AUTO) 62.6 %; PLT - PLATELET COUNT 117 10^3/uL (130-450); RED BLOOD COUNT 3.67 10^6/uL (4.20-5.40); RED CELL DISTRIBUTION WIDTH 15.1 % (12.0-15.0); WHITE BLOOD COUNT 3.3 x10^3/uL (4.8-10.8)
[2023-09-02] MEDS: SODIUM CHLORIDE 0.9% 1,000 ML IV ONE (12:29)
[2023-09-02 12:36] LABS: MAGNESIUM 1.3 mg/dL (1.7-2.3)
[2023-09-02 12:42] LABS: ALBUMIN 3.5 g/dL (3.2-5.5); ALBUMIN/GLOBULIN RATIO 1.3 (1.0-2.2); BILIRUBIN,TOTAL 0.4 mg/dL (0.2-1.0); CALCIUM 8.9 mg/dL (8.5-10.3); CREATININE 0.7 mg/dL (0.6-1.3); POTASSIUM 3.9 mmol/L (3.5-4.5); TOTAL PROTEIN 6.2 g/dL (6.4-8.9)
[2023-09-02] MEDS ORDERED: MAGNESIUM SULFATE 1 GM/2 ML VIAL IVP STA (12:51)
[2023-09-02] MEDS ORDERED: iohexoL-300 100 ML VIAL ONE (13:02)
[2023-09-02] MEDS: MAGNESIUM SULFATE 2 GRAM 2 GM/50 ML BAG IV STA (13:10)
[2023-09-02 13:17] LABS: B. PARAPERTUSSIS- RESP PCR PAN NOT DETECTED; B. PERTUSSIS- RESP PCR PANEL NOT DETECTED; C. PNEUMONIAE- RESP PCR PANEL NOT DETECTED; CORONAVIRUS 229E-RESP PCR NOT DETECTED; CORONAVIRUS HKU1-RESP PCR NOT DETECTED; CORONAVIRUS NL63-RESP PCR NOT DETECTED; CORONAVIRUS OC43-RESP PCR NOT DETECTED; HUMAN METAPNEUMOVIRUS NOT DETECTED; INFLUENZA A- RESP PCR PANEL NOT DETECTED; INFLUENZA B - RESP PCR PANEL NOT DETECTED; M. PNEUMONIAE- RESP PCR PANEL NOT DETECTED; PARAINFLUENZA VIRUS 1 NOT DETECTED; PARAINFLUENZA VIRUS 2 NOT DETECTED; PARAINFLUENZA VIRUS 3 NOT DETECTED; PARAINFLUENZA VIRUS 4 NOT DETECTED; RHINOVIRUS/ENTEROVIRUS NOT DETECTED; RSV- RESP PCR PANEL NOT DETECTED; SARS-CoV-2 -RESP PCR PANEL NOT DETECTED
--- NOTE | 2023-09-02 14:45 | CT Report ---
PROCEDURE: Abdomen/Pelvis W INDICATIONS: right sided abdominal pain CONTRAST: Iodinated nonionic contrast, intravenous, no oral contrast 100ml omni 300 TECHNIQUE: After the administration of intravenous contrast, a CT scan of the abdomen and pelvis was performed. Images were recorded and evaluated at appropriate window settings. Reformats: coronal and sagittal. F or radiation dose reduction, the following was used: automated exposure control, adjustment of mA and /or kV according to patient size. COMPARISON: Similar CT 08/08/2023.. FINDINGS: Image quality: Diagnostic. Lower chest: Unremarkable. Liver: The prior recent CT scanning approximately one month ago had identified several vague small lo w attenuation foci within the liver parenchyma. These are less well visualized but remain present, be st seen within the left lateral hepatic segment on CT series 2 image 33 and image 40, and possibly wi thin the lower right hepatic posterior segment on CT image 53. These have not enlarged in size and ma y have slightly diminished in size. Gallbladder: The gallbladder contains numerous small densely calcified gallstones but shows no eviden ce of acute inflammation. Biliary tree: No intrahepatic or extrahepatic dilation, accounting for age. Spleen: No splenomegaly. Pancreas: No pancreatic ductal dilation. Adrenals: No adrenal nodule. Kidneys and ureters: No hydronephrosis. No renal cystic lesion which requires follow up. No solid mas s. Stomach, bowel and peritoneum: No gastric or small bowel dilation. No abnormal wall thickening. No pa thologic free fluid. Lymph nodes: Previously identified periportal and midline and left para-aortic retroperitoneal increa sed number of small nodes and several mildly enlarged nodes have not changed from the prior CT. Vessels: No infrarenal aortic aneurysm. Patent portal vein. PELVIS Reproductive organs: Unremarkable. Bladder: No abnormal wall thickening, accounting for underdistention. Pelvic lymph nodes: No pelvic adenopathy by size criteria. Bones: No aggressive osseous abnormality. Dense metal artifact from the right total hip arthroplasty degrades quality of visualization through the lower third of the pelvis, especially on the right. Other: No significant ventral or inguinal hernia. IMPRESSION: A definite source of new right-sided abdominal pain is not seen. As discussed above the prior CT scan lorene from late July of this year had identified several hypodensities within the liver parenchyma ro spicious for representing small hepatic mass lesions. These are less well visualized and may have dim inished slightly in size. No new lesion is found. Stable periportal and retroperitoneal mild adenopathy comprised of an increased number of small nodes and several mildly enlarged retroperitoneal nodes at and adjacent to the aorta at the mid kidney lev el and slightly above. No new enlarged lymph nodes are found. No obstructive influence is seen. Right lower quadrant of the pelvis is poorly visualized due to dense metal artifact from right total hip arthroplasty. A urinary tract stone or appendicitis in this area cannot be entirely excluded. Reviewed by: Omar Reyes MD on 09/02/2023 2:44 PM PDT Approved by: Omar Reyes MD on 09/02/2023 2:44 PM PDT Station ID: [id number]
[2023-09-02] MEDS: MUPIROCIN 2% OINT 1 GM TOP STA (16:01)
[2023-09-02 16:43] VITALS: BP 135/89; O2SAT 95
[2023-09-02] MEDS: iohexoL-300 100 ML VIAL IVP ONE (18:12)
[2023-09-03 07:09] LABS: ADENOVIRUS F 40/41 Not Detected (Not Detected); ASTROVIRUS Not Detected (Not Detected); C DIFFICILE TOXIN A/B Not Detected (Not Detected); CAMPYLOBACTER Not Detected (Not Detected); CRYPTOSPORIDIUM Not Detected (Not Detected); CYCLOSPORA CAYETANENSIS Not Detected (Not Detected); ENTAMOEBA HISTOLYTICA Not Detected (Not Detected); ENTEROAGGREGATIVE E COLI Not Detected (Not Detected); ENTEROPATHOGENIC E COLI Not Detected (Not Detected); ENTEROTOXIGENIC E COLI Not Detected (Not Detected); GIARDIA LAMBLIA Not Detected (Not Detected); NOROVIRUS GI/GII Not Detected (Not Detected); PLESIOMONAS SHIGELLOIDES Not Detected (Not Detected); ROTAVIRUS A Not Detected (Not Detected); SALMONELLA Not Detected (Not Detected); SAPOVIRUS Not Detected (Not Detected); SHIGA-TOXIN-PRODUCING E COLI Not Detected (Not Detected); SHIGELLA/ENTEROINVASIVE E COLI Not Detected (Not Detected); VIBRIO Not Detected (Not Detected); VIBRIO CHOLERAE Not Detected (Not Detected); YERSINIA ENTEROCOLITICA Not Detected (Not Detected)
== END 2023-09-02 16:38 | disposition home or self-care (01) ==
LOC: ED 10:30
DX: R10.9 Unspecified abdominal pain (principal); E83.42 Hypomagnesemia; L08.89 Other specified local infections of the skin and subcutaneous tissue; B95.62 Methicillin resistant Staphylococcus aureus infection as the cause of diseases classified elsewhere; D64.9 Anemia, unspecified; C50.912 Malignant neoplasm of unspecified site of left female breast; C78.7 Secondary malignant neoplasm of liver and intrahepatic bile duct; Z79.899 Other long term (current) drug therapy; Z96.641 Presence of right artificial hip joint; G47.33 Obstructive sleep apnea (adult) (pediatric); E66.9 Obesity, unspecified; Z68.38 Body mass index [BMI] 38.0-38.9, adult
CPT/HCPCS: 36415; 74177; 80053; 83690; 83735; 85025; 87493; 87507; 87633; 96365; 96375; 99213; 99284; A9270; G0463; Q9967; 99212

== ENCOUNTER 2023-09-06 08:00 | Outpatient (CLI) | payer MEDICARE, MEDICAID | END 2023-09-06 23:59 | disposition home or self-care (01) | LOC: PC 08:00 | PROVIDERS: ATTEND Nurse Practitioner Adult Health | DX: Z51.5 Encounter for palliative care (principal); C50.919 Malignant neoplasm of unspecified site of unspecified female breast; C78.7 Secondary malignant neoplasm of liver and intrahepatic bile duct; Z17.0 Estrogen receptor positive status [ER+]; T36.8X5A Adverse effect of other systemic antibiotics, initial encounter; K52.1 Toxic gastroenteritis and colitis; L03.032 Cellulitis of left toe; E83.42 Hypomagnesemia; F41.8 Other specified anxiety disorders; R21 Rash and other nonspecific skin eruption; Z79.899 Other long term (current) drug therapy | CPT/HCPCS: 99214 ==

== ENCOUNTER 2023-09-09 08:00 | Outpatient (CLI) | payer MEDICARE, MEDICAID | END 2023-09-09 23:59 | disposition home or self-care (01) | LOC: PC 08:00 | PROVIDERS: ATTEND Nurse Practitioner Adult Health | DX: Z51.5 Encounter for palliative care (principal); C50.919 Malignant neoplasm of unspecified site of unspecified female breast; G62.9 Polyneuropathy, unspecified | CPT/HCPCS: 99426 ==

== ENCOUNTER 2023-09-12 12:28 | Outpatient (CLI) | payer MEDICARE, MEDICAID ==
--- NOTE | 2023-09-12 13:38 | XRAY Report ---
PROCEDURE: Toe(s) 2+V RT INDICATIONS: RIGHT 2ND TOE OSTEOMYELITIS TECHNIQUE: 3 views of the second toe(s) acquired. COMPARISON: Right foot radiograph dated 10/13/2022 and MRI of right foot dated 10/23/2022. FINDINGS: Bones: There is mild to moderate hallux valgus. Osteoarthritic changes are noted throughout right rebecca t more notably at first MTP joint. No gross acute second toe fracture or dislocation. No No suspiciou s bony lesions. No bony erosive changes. Soft tissues: No suspicious soft tissue densities. IMPRESSION: No acute bony abnormality. No radiographic evidence of osteomyelitis is seen on the current study. Right foot osteoarthritis. Reviewed by: Artie Strauss MD on 09/12/2023 1:36 PM PDT Approved by: Artie Strauss MD on 09/12/2023 1:36 PM PDT Station ID: [id number]
== END 2023-09-12 12:29 | disposition home or self-care (01) ==
LOC: DI 12:28
PROVIDERS: ATTEND Family Medicine
DX: L60.0 Ingrowing nail (principal); L08.9 Local infection of the skin and subcutaneous tissue, unspecified; L97.522 Non-pressure chronic ulcer of other part of left foot with fat layer exposed; E11.621 Type 2 diabetes mellitus with foot ulcer; L97.512 Non-pressure chronic ulcer of other part of right foot with fat layer exposed; L59.8 Other specified disorders of the skin and subcutaneous tissue related to radiation; M19.071 Primary osteoarthritis, right ankle and foot

== ENCOUNTER 2023-09-13 10:15 | Outpatient (CLI) | payer MEDICARE, MEDICAID | END 2023-09-13 23:59 | disposition home or self-care (01) | LOC: PC 10:15 | PROVIDERS: ATTEND Nurse Practitioner Adult Health | DX: Z51.5 Encounter for palliative care (principal); C50.919 Malignant neoplasm of unspecified site of unspecified female breast; C78.7 Secondary malignant neoplasm of liver and intrahepatic bile duct; C79.51 Secondary malignant neoplasm of bone; I48.92 Unspecified atrial flutter; R21 Rash and other nonspecific skin eruption; K52.9 Noninfective gastroenteritis and colitis, unspecified; F41.9 Anxiety disorder, unspecified; F32.A Depression, unspecified; G89.3 Neoplasm related pain (acute) (chronic); R53.83 Other fatigue; Z71.89 Other specified counseling | CPT/HCPCS: 99215 ==

== ENCOUNTER 2023-09-13 12:57 | Emergency (ER) | payer MEDICARE, MEDICAID ==
[2023-09-13 13:15] VITALS: O2SAT 94
[2023-09-13 13:32] LABS: BASOPHILS % (AUTO) 0.7 %; EOSINOPHILS % (AUTO) 3.8 %; HCT - HEMATOCRIT 36.4 % (37.0-47.0); HGB - HEMOGLOBIN 11.5 g/dL (12.0-16.0); LYMPHOCYTES % (AUTO) 27.4 %; MEAN CORPUSCULAR HEMOGLOBIN 29.9 pg (27.0-31.0); MEAN CORPUSCULAR HGB CONC 31.6 g/dL (32.0-36.0); MEAN CORPUSCULAR VOLUME 94.8 fL (81.0-99.0); MEAN PLATELET VOLUME 10.5 fL (7.9-10.8); MONOCYTES % (AUTO) 11.8 %; PLT - PLATELET COUNT 160 10^3/uL (130-450); RED BLOOD COUNT 3.84 10^6/uL (4.20-5.40); WHITE BLOOD COUNT 2.9 x10^3/uL (4.8-10.8)
[2023-09-13 13:35] LABS: ABNORMAL LYMPHS % (MANUAL) 0 %
--- NOTE | 2023-09-13 13:36 | ED Physician Documentation ---
PD HPI CHEST PAIN - Stated complaint Stated Complaint: VOMIT,RAPID HR - Chief complaint Chief Complaint: Cardiac - History obtained from History obtained from: Patient - History of Present Illness Timing - onset: Today (she was at [facility] clinic and got infusions of potassium and magnesium and was to get her oncology infusion as) Timing - duration: Seconds, Minutes (intermittently) Timing - details: Abrupt onset, Now resolved Quality: Tightness, Throbbing Associated symptoms: Nausea, Palpitations. 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), Breast cancer : None HEENT: Chronic vision loss, Chronic sinusitis Psych: Anxiety Musculoskeletal: Osteoarthritis Derm: Other - Past Surgical History Past Surgical History: Yes Ortho: Hip replacement, Knee replacement, Spine surgery /PRESS 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: Tubal 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, Other - Present Medications Home Medications: Ambulatory Orders Medication Instructions Recorded Confirmed Sertraline HCl 150 mg PO DAILY 06/27/18 09/13/23 metFORMIN [Glucophage] 500 mg PO BIDWM 06/27/18 09/13/23 Levothyroxine Sodium [Levoxyl] 25 mcg PO QDAC 04/16/21 09/13/23 Dulaglutide [Trulicity] 0.75 mg SQ UD 11/10/21 09/13/23 Loperamide [Imodium] 2 mg PO ONCE PRN MDD 8 CAPS (16 MG) 12/24/21 09/13/23 Apixaban [Eliquis] 2.5 mg PO BID 01/05/22 09/13/23 Celecoxib [CeleBREX] 100 mg PO BID 03/09/22 09/13/23 busPIRone [Buspar] 15 mg PO DAILY 04/20/22 09/13/23 Pregabalin [Lyrica] 150 mg PO DAILY 05/18/22 09/13/23 Tamoxifen [Nolvadex] 20 mg PO DAILY 10/05/22 09/13/23 Diphenoxylate/Atropine [Lomotil] See Rx Instructions .ROUTE .COMPLEX 02/24/23 09/13/23 Losartan [Cozaar] 50 mg PO DAILY 07/26/23 09/13/23 Fam-Trastuzumab Deruxtecn-Nxki See Rx Instructions .ROUTE .COMPLEX 08/03/23 09/13/23 [Enhertu] Magnesium Glycinate 120 mg PO TID 08/04/23 09/13/23 OLANZapine [Zyprexa] 2.5 mg PO UD 08/30/23 09/13/23 Pregabalin 150 mg PO TID 09/02/23 09/13/23 - Allergies Allergies/Adverse Reactions: Allergies Allergy/AdvReac Type Severity Reaction Status Date / Time adhesive Allergy Unknown Verified 09/02/23 10:35 anastrozole Allergy Unknown Verified 09/02/23 10:35 hydroxyzine Allergy Itching Verified 09/02/23 10:35 lorazepam Allergy Emesis Verified 09/02/23 10:35 meclizine Allergy Emesis Verified 09/02/23 10:35 silver Allergy Unknown Verified 09/02/23 10:35 [From Tegaderm AG Mesh] clindamycin AdvReac Unknown Verified 09/06/23 08:55 codeine AdvReac Nausea Verified 09/02/23 10:35 gabapentin AdvReac Dizziness Verified 09/02/23 10:35 - Social History Does the pt smoke?: No Smoking Status: Never smoker Does the pt drink ETOH?: No Does the pt have substance abuse?: No - Immunizations Immunizations are current?: Yes - POLST Patient has POLST: No POLST Status: Full Code PD ED PE NORMAL - Vitals Vital signs reviewed: Yes - General General: Alert and oriented X 3, No acute distress, Well developed/nourished - Cardiac Cardiac: RRR, No murmur - Respiratory Respiratory: Clear bilaterally - Derm Derm: Normal color, Warm and dry - Neuro Neuro: Alert and oriented X 3, No motor deficit Results - Vitals Vitals: Oxygen O2 Source Room air - Labs Labs: Laboratory Tests 09/13/23 09/13/23 13:28 13:28 WBC 2.9 L RBC 3.84 L Hgb 11.5 L Hct 36.4 L MCV 94.8 MCH 29.9 MCHC 31.6 L RDW 16.0 H Plt Count 160 MPV 10.5 Neut # (Auto) Not Reportable Lymph # (Auto) Not Reportable [place] # (Auto) Not Reportable Eos # (Auto) Not Reportable Baso # (Auto) Not Reportable Absolute Nucleated RBC Not Reportable Total Counted 100 Band Neuts % (Manual) 1 Reactive Lymphs % (Man) 16 Abnorm Lymph % (Manual) 0 Nucleated RBC % Not Reportable Neutrophils # (Manual) 1.7 Lymphocytes # (Manual) 0.9 L Monocytes # (Manual) 0.3 Eosinophils # (Manual) 0.0 Basophils # (Manual) 0.0 Differential Comment MANUAL DIFFERENTIAL Platelet Estimate NORMAL (130-450,000) Platelet Morphology NORMAL APPEARANCE RBC Morph Micro Appear NORMAL APPEARANCE Sodium 141 Potassium 4.1 Chloride 110 Carbon Dioxide 27 Anion Gap 4.0 L BUN 13 Creatinine 0.7 Estimated GFR (MDRD) 83 L Glucose 122 H Calcium 8.9 Total Bilirubin 0.6 AST 27 ALT 15 Alkaline Phosphatase 61 Troponin I High Sens 7.6 Total Protein 6.5 Albumin 3.6 Globulin 2.9 Albumin/Globulin Ratio 1.2 Lipase 53 - Rads (name of study) chest xray Relevant Findings:: EMP independent interpretation of test (increased left perihilar mass. No other acute), See rad report PD Medical Decision Making - ED course Complexity details: reviewed results (ECG and monitor are normal here. She is conforted by that and wants to just return to [facility] for her usual infusion.), re- evaluated patient (normal lytes here. ECG and monitor without ectopy, nor u nusual rhythm. PCP could consider ZIopatch/Holter.), considered differential (she felt palpitations at [facility]. they did not capture any strips/ECG. Referred her to ER. Consider PVCs/PACs, atrial fib briefly, SVT, or other feeling in chest noncardiac such as anxiety, fluid, pnoumonia, etc.), d/w patient Departure - Departure Disposition: 01 Home, Self Care Clinical Impression: Palpitations, Hypomagnesemia Condition: Stable Record reviewed to determine appropriate education?: Yes Follow-Up: Jah Marie MD [Primary Care Provider] - Comments: Your EKG is normal here with a normal regular beat. The description you give his potentially of extra beats/palpitations and most commonly are premature ventricular or atrial contractions (PVCs or PACs). Other times it can be spurts of other irregular rhythm such as atrial fibrillation or supraventricular tachycardia (SVT). These can come about more easily all of them with electrolyte disturbances such as your low magnesium. Continue with your current treatments. Follow-up with your primary care, they may want to have you wear a heart monitor that records over the timeframe of a week or so (Holter or Zio patch are a couple of tradename's). This would give a more clear recording of what some of these episodes are and would guide further treatment. It may be a new process or it is potentially possible you may have had a tendency towards extra beats that were suppressed by your metoprolol/beta- van and are now coming about more easily being on the losartan. Consideration would be switching back to the beta-van or onto a different category called calcium blockers if these are found to be simple extra beats or such. Follow-up with the [facility] today for your normal infusions. Return if worsening symptoms. Forms: PCP List Discharge Date/Time: 09/13/23 14:45
[2023-09-13 13:45] LABS: ALBUMIN 3.6 g/dL (3.2-5.5); ALBUMIN/GLOBULIN RATIO 1.2 (1.0-2.2); BILIRUBIN,TOTAL 0.6 mg/dL (0.2-1.0); CALCIUM 8.9 mg/dL (8.5-10.3); CREATININE 0.7 mg/dL (0.6-1.3); POTASSIUM 4.1 mmol/L (3.5-4.5); TOTAL PROTEIN 6.5 g/dL (6.4-8.9)
[2023-09-13 13:46] VITALS: BP 122/68
[2023-09-13 13:52] LABS: TROPONIN I HIGH SENSITIVITY 7.6 ng/L (2.3-14.8)
[2023-09-13 13:56] LABS: BAND NEUTROPHILS % (MANUAL) 1 %; LYMPHOCYTES # (MANUAL) 0.9 10^3/uL (1.5-3.5); LYMPHOCYTES % (MANUAL) 15 %; MONOCYTES # (MANUAL) 0.3 10^3/uL (0.0-1.0); NEUTROPHILS # (MANUAL) 1.7 10^3/uL (1.5-6.6); PLATELET ESTIMATE, MANUAL NORMAL (130-450,000) (NORMAL); PLATELET MORPHOLOGY NORMAL APPEARANCE (NORMAL); RBC MORPHOLOGY (MULTIPLE) NORMAL APPEARANCE (NORMAL); REACTIVE LYMPHS % (MANUAL) 16 %
[2023-09-13 13:57] LABS: DIFFERENTIAL COMMENT MANUAL DIFFERENTIAL
--- NOTE | 2023-09-13 14:20 | XRAY Report ---
PROCEDURE: Chest 1V INDICATIONS: Chest pain TECHNIQUE: One view of the chest was acquired. COMPARISON: 07/19/2023 CT FINDINGS: Surgical changes and devices: A right portacatheter terminates in the lower SVC. Chest wall postsurg ical changes Lungs and pleura: Low lung volumes. Suspected increased left perihilar opacity. No drainable pleural effusion. Mediastinum: Heart size is at the upper limit of normal Bones and chest wall: Degenerative findings. IMPRESSION: A left perihilar opacity is present, probably increased compared to recent CT. This may be infectious /inflammatory. Consider future surveillance imaging provided patient's history of malignancy. Reviewed by: Jhon Arredondo MD on 09/13/2023 2:18 PM PDT Approved by: Jhon Arredondo MD on 09/13/2023 2:18 PM PDT Station ID: [id number]
[2023-09-13] MEDS: ONDANSETRON 4 MG/2 ML VIAL IVP STA (14:36)
== END 2023-09-13 14:45 | disposition home or self-care (01) ==
LOC: ED 12:57
DX: R00.2 Palpitations (principal); E83.42 Hypomagnesemia
CPT/HCPCS: 36415; 80053; 83690; 84484; 85025; 93005; 99283; 99284

== ENCOUNTER 2023-09-20 08:00 | Outpatient (CLI) | payer MEDICARE, MEDICAID ==
[2023-09-20 09:56] LABS: THYROID STIMULATING HORMONE 3.14 uIU/mL (0.34-5.60)
== END 2023-09-20 23:59 | disposition home or self-care (01) ==
LOC: LAB 08:00
PROVIDERS: ATTEND Internal Medicine
DX: E03.9 Hypothyroidism, unspecified (principal)
CPT/HCPCS: 36415; 84439; 84443

== ENCOUNTER 2023-09-27 08:45 | Outpatient (CLI) | payer MEDICARE, MEDICAID | END 2023-09-27 23:59 | disposition home or self-care (01) | LOC: PC 08:45 | PROVIDERS: ATTEND Nurse Practitioner Adult Health | DX: Z51.5 Encounter for palliative care (principal); C79.51 Secondary malignant neoplasm of bone; C78.7 Secondary malignant neoplasm of liver and intrahepatic bile duct; C50.919 Malignant neoplasm of unspecified site of unspecified female breast; R21 Rash and other nonspecific skin eruption; R11.0 Nausea; R43.9 Unspecified disturbances of smell and taste; R53.83 Other fatigue; R63.0 Anorexia; G62.0 Drug-induced polyneuropathy; K52.1 Toxic gastroenteritis and colitis; T45.1X5A Adverse effect of antineoplastic and immunosuppressive drugs, initial encounter; I48.92 Unspecified atrial flutter; Z79.899 Other long term (current) drug therapy; Z79.01 Long term (current) use of anticoagulants; F41.8 Other specified anxiety disorders; Z71.89 Other specified counseling; Z63.9 Problem related to primary support group, unspecified | CPT/HCPCS: 99215 ==

== ENCOUNTER 2023-09-28 07:53 | Outpatient (CLI) | payer MEDICARE, MEDICAID | END 2023-09-28 07:54 | disposition critical access hospital (66) | LOC: EMS 07:53 | DX: M54.50 Low back pain, unspecified (principal); M25.512 Pain in left shoulder; M25.571 Pain in right ankle and joints of right foot; W01.0XXA Fall on same level from slipping, tripping and stumbling without subsequent striking against object, initial encounter; Y92.000 Kitchen of unspecified non-institutional (private) residence as the place of occurrence of the external cause; Z79.01 Long term (current) use of anticoagulants | CPT/HCPCS: A0425; A0429 ==

== ENCOUNTER 2023-09-28 08:09 | Emergency (ER) | payer MEDICARE, MEDICAID ==
[2023-09-28] MEDS: KETOROLAC 30 MG/ML VIAL IVP STA (08:57)
[2023-09-28] MEDS: HYDROmorphone 1 MG/ML CARPUJECT IVP STA ×3 (08:58→12:13)
[2023-09-28] MEDS: LACTATED RINGERS 1,000 ML IV STA (08:58)
[2023-09-28 09:15] LABS: BASOPHILS % (AUTO) 0.8 %; EOSINOPHILS # (AUTO) 0.1 10^3/uL (0.0-0.7); EOSINOPHILS % (AUTO) 2.4 %; HCT - HEMATOCRIT 32.5 % (37.0-47.0); HGB - HEMOGLOBIN 10.8 g/dL (12.0-16.0); LYMPHOCYTES # (AUTO) 0.4 10^3/uL (1.5-3.5); LYMPHOCYTES % (AUTO) 16.9 %; MEAN CORPUSCULAR HEMOGLOBIN 31.7 pg (27.0-31.0); MEAN CORPUSCULAR HGB CONC 33.2 g/dL (32.0-36.0); MEAN CORPUSCULAR VOLUME 95.3 fL (81.0-99.0); MEAN PLATELET VOLUME 11.1 fL (7.9-10.8); MONOCYTES # (AUTO) 0.5 10^3/uL (0.0-1.0); MONOCYTES % (AUTO) 18.1 %; NEUTROPHILS # (AUTO) 1.5 10^3/uL (1.5-6.6); NEUTROPHILS % (AUTO) 61.4 %; PLT - PLATELET COUNT 127 10^3/uL (130-450); RED BLOOD COUNT 3.41 10^6/uL (4.20-5.40); RED CELL DISTRIBUTION WIDTH 16.1 % (12.0-15.0); WHITE BLOOD COUNT 2.5 x10^3/uL (4.8-10.8)
--- NOTE | 2023-09-28 09:18 | XRAY Report ---
PROCEDURE: Ankle 3+V RT INDICATIONS: fall with ankle juan carlos TECHNIQUE: 3 views of the ankle were acquired. COMPARISON: None. FINDINGS: Bones: No fractures or dislocations. Ankle mortise is normally aligned. No suspicious bony lesions . Calcaneal spur. Soft tissues: No tibiotalar joint effusion. Achilles tendon appears normal. IMPRESSION: No visualized acute fracture or dislocation. However, occult injury cannot be excluded. Recommend kinza rt interval imaging follow-up in 7-10 days as clinically indicated for additional evaluation. Reviewed by: Tracie Jama MD on 09/28/2023 9:17 AM PDT Approved by: Tracie Jama MD on 09/28/2023 9:17 AM PDT Station ID: [id number]
[2023-09-28 09:19] LABS: SLIDE REVIEW? Indicated
--- NOTE | 2023-09-28 09:19 | XRAY Report ---
PROCEDURE: Hip w/Pelvis 2-3V LT INDICATIONS: fall with left hip pain TECHNIQUE: 3 views of the hip were acquired. COMPARISON: None. FINDINGS: Bones: No fractures or dislocations. No suspicious bony lesions. Right hip arthroplasty. Hardware is intact without evidence of hardware fracture or periprosthetic lucency to suggest loosening. Mode rate arthritic narrowing is present within the left hip. Soft tissues: No suspicious soft tissue calcifications or masses. IMPRESSION: No visualized acute fracture or dislocation. However, occult injury cannot be excluded. Recommend kinza rt interval imaging follow-up in 7-10 days as clinically indicated for additional evaluation. Reviewed by: Tracie Jama MD on 09/28/2023 9:18 AM PDT Approved by: Tracie Jama MD on 09/28/2023 9:18 AM PDT Station ID: [id number]
[2023-09-28 09:29] LABS: ALBUMIN 3.4 g/dL (3.2-5.5); ALBUMIN/GLOBULIN RATIO 1.2 (1.0-2.2); BILIRUBIN,TOTAL 0.5 mg/dL (0.2-1.0); CALCIUM 8.6 mg/dL (8.5-10.3); CREATININE 0.6 mg/dL (0.6-1.3); MAGNESIUM 1.4 mg/dL (1.7-2.3); PHOSPHORUS 2.7 mg/dL (2.5-5.0); POTASSIUM 3.6 mmol/L (3.5-4.5); TOTAL PROTEIN 6.2 g/dL (6.4-8.9)
[2023-09-28 09:32] LABS: RBC MORPHOLOGY (MULTIPLE) 2+ ANISOCYTOSIS (NORMAL)
[2023-09-28] MEDS: ONDANSETRON 4 MG/2 ML VIAL IVP STA (10:32)
--- NOTE | 2023-09-28 10:33 | CT Report ---
PROCEDURE: Head WO INDICATIONS: fall, on DOAC TECHNIQUE: Noncontrast 4.5 mm thick angled axial sections acquired from the foramen magnum to the vertex. For r adiation dose reduction, the following was used: automated exposure control, adjustment of mA and/or kV according to patient size. COMPARISON: CT head 05/25/2022 FINDINGS: Image quality: Excellent. CSF spaces: Basal cisterns are patent. No extra-axial fluid collections. Ventricles are normal in size and shape. Brain: No midline shift. No intracranial masses or hemorrhage. [place]-white matter interface is norm al. Skull and face: Calvarium and visualized facial bones are intact, without suspicious lesions. Sinuses: Visualized sinuses demonstrate complete opacification of the left maxillary sinus.. IMPRESSION: No acute intracranial pathology. Reviewed by: Tracie Jama MD on 09/28/2023 10:31 AM PDT Approved by: Tracie Jama MD on 09/28/2023 10:31 AM PDT Station ID: [id number]
--- NOTE | 2023-09-28 10:34 | CT Report ---
PROCEDURE: Cervical Spine WO INDICATIONS: fall backward, neck/back pain TECHNIQUE: Noncontrast 3 mm thick sections acquired from the skull base to the T4 level. Sagittal and coronal r eformats were then constructed. For radiation dose reduction, the following was used: automated exp osure control, adjustment of mA and/or kV according to patient size. COMPARISON: None. FINDINGS: Image quality: Excellent. Bones: No fractures or dislocations. Visualized superior ribs are intact. Cervical straightening i s multilevel degenerative changes including disc space narrowing, osteophytes and uncovertebral arthr opathy are present. Soft tissues: Prevertebral soft tissues are normal in thickness. No paravertebral hematomas. No ap ical pneumothoraces. Complete opacification of the visualized left maxillary sinus. IMPRESSION: Degenerative changes without visualized fracture. Reviewed by: Tracie Jama MD on 09/28/2023 10:33 AM PDT Approved by: Tracie Jama MD on 09/28/2023 10:33 AM PDT Station ID: [id number]
--- NOTE | 2023-09-28 10:46 | CT Report ---
PROCEDURE: Thoracic Spine WO INDICATIONS: fal backward with neck/back pain TECHNIQUE: Noncontrast 3 mm thick sections acquired through the region of interest in the thoracic spine. Sagit maurice and coronal reformats were then constructed. For radiation dose reduction, the following was used : automated exposure control, adjustment of mA and/or kV according to patient size. COMPARISON: CT chest 08/08/2023, 07/09/2022, 03/02/2022 FINDINGS: Image quality: Excellent. Bones: There is normal overall bony alignment. No acute vertebral body compression fractures. Mild height loss is present within several lower vertebral bodies unchanged over multiple prior exams. Multilevel degenerative changes including disc space narrowing and anterior osteophytes are present. Multilevel disc bulges are present. There is an appearance of diffuse increased sclerosis within the T1 vertebral body. It is unchanged from 2023 exams. It was present although less prominent in 2022 an d not visualized previous. Soft tissues: No paravertebral masses or hematomas. Minimal left effusion. IMPRESSION: Degenerative and multilevel compression deformities, remote. No new fractures are identified. Progressive sclerotic appearance of the T1 vertebral body. This could be related to reactive degenera tive marrow changes. Malignancy is felt to be less likely given overall slow progression. However, if there is known malignancy, further evaluation is recommended. Reviewed by: Tracie Jama MD on 09/28/2023 10:45 AM PDT Approved by: Tracie Jama MD on 09/28/2023 10:45 AM PDT Station ID: [id number]
--- NOTE | 2023-09-28 10:48 | CT Report ---
PROCEDURE: Lumbar Spine WO INDICATIONS: fall backward with mainly low back pain TECHNIQUE: Noncontrast 3 mm thick sections acquired from the T12 level to the sacrum. Sagittal and coronal refo rmats were constructed. For radiation dose reduction, the following was used: automated exposure co ntrol, adjustment of mA and/or kV according to patient size. COMPARISON: None. FINDINGS: Image quality: Excellent. Bones: There is trace anterolisthesis of L4 on L5 and trace retrolisthesis of L5 on S1. Vacuum disc is present at L5-S1. Multilevel degenerative disc space narrowing most severe at L5-S1. Scattered are as of anterior osteophytes is present at the thoracolumbar juncture. No acute vertebral body compress ion fractures. No suspicious lytic or blastic bony lesions. Multilevel scattered disc bulges, spinal stenosis and foraminal narrowing are present. No pars defects. Soft tissues: No retroperitoneal masses or hematomas. Visualized aorta is normal in caliber. IMPRESSION: Multilevel degenerative changes without visualized fracture. Reviewed by: Tracie Jama MD on 09/28/2023 10:47 AM PDT Approved by: Tracie Jama MD on 09/28/2023 10:47 AM PDT Station ID: [id number]
[2023-09-28] MEDS: LIDOCAINE PATCH 5% TOP STA (12:14)
[2023-09-28] MEDS: LORazepam 2 MG/ML VIAL IVP STA (12:14)
--- NOTE | 2023-09-28 12:20 | ED Physician Documentation ---
PD HPI Fall - Stated complaint Stated Complaint: GLF - Chief complaint Chief Complaint: Trauma Ch/Bk - History obtained from History obtained from: Patient, EMS (pt with port and did not want IV, so no meds enroute for pain.) - History of Present Illness Mechanism of injury: Lost balance Fall distance: Standing position (was standing and lost balance, falling backward to buttock then back. Ankle twisted with it. Pain right ankle, left hip and lower back, but also thoracic area. She thinks must have struck head but not having headache per se.) Where injury occurred: Home Timing - onset: Today Injury(ies) location: Back, Left Lower Extremity (lateral hip), Right Foot Pain level max: 7 Pain level now: 7 Associated symptoms: No: LOC, AMS, Weakness, Paresthesias, Dyspnea, Nausea / vomiting Worsens with: Movement PD PAST MEDICAL HISTORY - Past Medical History Cardiovascular: Hypertension, High cholesterol, Peripheral Vascular Disease, Murmur Respiratory: Sleep apnea, CPAP use Neuro: Headaches, Peripheral neuropathy, Fainting Endocrine/Autoimmune: Type 2 diabetes GI: GERD, Cholelithiasis LEVER TENDER: Miscarriage(s), Breast cancer : None HEENT: Chronic vision loss, Chronic sinusitis Psych: Anxiety Musculoskeletal: Osteoarthritis Derm: Other - Past Surgical History Past Surgical History: Yes Ortho: Hip replacement, Knee replacement, Spine surgery /LEVER TENDER: Tubal ligation, Other - Present Medications Home Medications: Ambulatory Orders Medication Instructions Recorded Confirmed Sertraline HCl 150 mg PO DAILY 06/27/18 09/28/23 metFORMIN [Glucophage] 500 mg PO BIDWM 06/27/18 09/28/23 Levothyroxine Sodium [Levoxyl] 25 mcg PO QDAC 04/16/21 09/28/23 Dulaglutide [Trulicity] 0.75 mg SQ UD 11/10/21 09/20/23 Loperamide [Imodium] 2 mg PO ONCE PRN MDD 8 CAPS (16 MG) 12/24/21 09/20/23 Apixaban [Eliquis] 2.5 mg PO BID 01/05/22 09/28/23 Celecoxib [CeleBREX] 100 mg PO BID 03/09/22 09/28/23 busPIRone [Buspar] 15 mg PO DAILY 04/20/22 09/28/23 Tamoxifen [Nolvadex] 20 mg PO DAILY 10/05/22 09/28/23 Diphenoxylate/Atropine [Lomotil] See Rx Instructions .ROUTE .COMPLEX 02/24/23 09/20/23 Fam-Trastuzumab Deruxtecn-Nxki See Rx Instructions .ROUTE .COMPLEX 08/03/23 09/20/23 [Enhertu] Magnesium Glycinate 120 mg PO TID 08/04/23 09/20/23 OLANZapine [Zyprexa] 2.5 mg PO UD 08/30/23 09/20/23 Pregabalin 150 mg PO TID 09/02/23 09/28/23 HYDROcod/ACETAM 5/325 [[place] 5/325] 1 ea PO Q6H PRN #25 tablet 09/28/23 Lidocaine Patch 5% [Lidoderm Patch] 1 patch TOP DAILY PRN #10 patch 09/28/23 Rosuvastatin Calcium 20 mg PO DAILY 09/28/23 09/28/23 methocarbamoL [Robaxin] 500 mg PO TID PRN #20 tablet 09/28/23 - Allergies Allergies/Adverse Reactions: Allergies Allergy/AdvReac Type Severity Reaction Status Date / Time adhesive Allergy Unknown Verified 09/28/23 08:19 anastrozole Allergy Unknown Verified 09/28/23 08:19 hydroxyzine Allergy Itching Verified 09/28/23 08:19 lorazepam Allergy Emesis Verified 09/28/23 08:19 meclizine Allergy Emesis Verified 09/28/23 08:19 silver Allergy Unknown Verified 09/28/23 08:19 [From Tegaderm AG Mesh] clindamycin AdvReac Unknown Verified 09/28/23 08:19 codeine AdvReac Nausea Verified 09/28/23 08:19 gabapentin AdvReac Dizziness Verified 09/28/23 08:19 - Social History Does the pt smoke?: No Smoking Status: Never smoker Does the pt drink ETOH?: No Does the pt have substance abuse?: No - Immunizations Immunizations are current?: Yes - POLST Patient has POLST: No POLST Status: Full Code PD ED PE NORMAL - Vitals Vital signs reviewed: Yes - General General: Alert and oriented X 3, Well developed/nourished, Other (on backboard without collar. Mccune roll in place. ) - HEENT HEENT: Atraumatic - Neck Neck: Supple, no meningeal sign, No bony TTP, No adenopathy - Cardiac Cardiac: RRR - Respiratory Respiratory: No respiratory distress, Clear bilaterally - Abdomen Abdomen: Soft, Non tender - Back Back: Other (tender in thoracolumbar area midline and soft tissue muscles.) - Derm Derm: Normal color, Warm and dry - Extremities Extremities: Other (left lateral hip with some tenderness. Passive ROM of hip for rotation and flexion without joint pain. Right ankle with tenderness laterally and mild swelling. ) - Neuro Neuro: Alert and oriented X 3, No motor deficit, No sensory deficit Eye Opening: Spontaneous Motor: Obeys Commands Verbal: Oriented GCS Score: 15 Results - Vitals Vitals: Vital Signs - 24 hr 09/28/23 09/28/23 08:17 12:19 Temperature 36.5 C Heart Rate 64 54 L Respiratory 20 18 Rate Blood Pressure 147/65 H 135/66 H O2 Saturation 96 100 Oxygen O2 Source Room air - Labs Labs: Laboratory Tests 09/28/23 09/28/23 09:05 09:05 WBC 2.5 L RBC 3.41 L Hgb 10.8 L Hct 32.5 L MCV 95.3 MCH 31.7 H MCHC 33.2 RDW 16.1 H Plt Count 127 L MPV 11.1 H Neut # (Auto) 1.5 Lymph # (Auto) 0.4 L [place] # (Auto) 0.5 Eos # (Auto) 0.1 Baso # (Auto) 0.0 Absolute Nucleated RBC 0.00 Nucleated RBC % 0.0 Manual Slide Review Indicated RBC Morph Micro Appear 2+ ANISOCYTOSIS Sodium 142 Potassium 3.6 Chloride 112 H Carbon Dioxide 27 Anion Gap 3.0 L BUN 15 Creatinine 0.6 Estimated GFR (MDRD) 99 Glucose 99 Calcium 8.6 Phosphorus 2.7 Magnesium 1.4 L Total Bilirubin 0.5 AST 26 ALT 14 Alkaline Phosphatase 63 Total Protein 6.2 L Albumin 3.4 Globulin 2.8 Albumin/Globulin Ratio 1.2 Lipase 49 - Rads (name of study) spine CT Relevant Findings:: Prelim report reviewed (no fractures of C/T/L spine) head CT Relevant Findings:: Prelim report reviewed, EMP independent interpretation of test (no ICH nor acute findings) left hip Relevant Findings:: Prelim report reviewed, EMP independent interpretation of test (no fractures) right ankle Relevant Findings:: Prelim report reviewed, EMP independent interpretation of test (no fractures) PD Medical Decision Making - ED course Complexity details: reviewed results, re-evaluated patient (improved pain with repeated doses IV meds. ), considered differential (fall with back/spine pains and ankle/hip. Can get head CT to ensure no ICH. ), d/w patient ED course: Fell backward with mechanical fall. No preceding symptoms. Alert and normal neuro on arrival. Scanned spine and head for accuracy of finding injuries. No frctures nor bleeding. On DOAC. Departure - Departure Disposition: Home, Self Care Clinical Impression: Fall from slip, trip, or stumble, Ankle sprain, Contusion, hip, Back contusion, Anticoagulant long-term use, Pancytopenia Condition: Stable Record reviewed to determine appropriate education?: Yes Instructions: ED Contusion Back, ED Sprain Ankle Follow-Up: Jah Marie MD [Primary Care Provider] - Prescriptions: Lidocaine Patch 5% [Lidoderm Patch] 1 patch TOP DAILY PRN #10 patch PRN Reason: pain HYDROcod/ACETAM 5/325 [[place] 5/325] 1 ea PO Q6H PRN #25 tablet PRN Reason: Pain methocarbamoL [Robaxin] 500 mg PO TID PRN #20 tablet PRN Reason: Spasms Comments: Your x-rays of your hip and ankle do not show any fractures. Obviously they are still hurting and we can use an ankle splint or brace for the ankle to help support that. We did a CT scan of your head and the whole spine and there are old arthritic changes noted but no new fractures or acute injury. You will still be sore in the back. You can use a combination of heat and stretching and lidocaine patches in the low back to help with spasms and stiffness. Continue usual medications. Tylenol 500 to 650 mg 4 times daily regularly for the next several days to week. Add methocarbamol muscle relaxant 3 times daily to help with spasms and stiffness. To that add hydrocodone every 4-6 hours if needed for worse pain. I would anticipate needing this just in the short-term over the next several days. You said you are not allergic to that medication. I sent scripts to your preferred pharmacy. Follow-up with your primary care if not improving well over the next several days and resolved by a week or so. Forms: PCP List Discharge Date/Time: 09/28/23 13:40
[2023-09-28 13:40] VITALS: BP 135/66; O2SAT 100
== END 2023-09-28 13:40 | disposition home or self-care (01) ==
LOC: ED 08:09
DX: S93.401A Sprain of unspecified ligament of right ankle, initial encounter (principal); S70.02XA Contusion of left hip, initial encounter; S30.0XXA Contusion of lower back and pelvis, initial encounter; W18.30XA Fall on same level, unspecified, initial encounter; Y92.009 Unspecified place in unspecified non-institutional (private) residence as the place of occurrence of the external cause; D61.818 Other pancytopenia; I10 Essential (primary) hypertension; E78.00 Pure hypercholesterolemia, unspecified; E11.42 Type 2 diabetes mellitus with diabetic polyneuropathy; Z79.01 Long term (current) use of anticoagulants; Z79.899 Other long term (current) drug therapy; Z79.84 Long term (current) use of oral hypoglycemic drugs; Z79.85 Long-term (current) use of injectable non-insulin antidiabetic drugs
CPT/HCPCS: 36415; 70450; 72125; 72128; 72131; 73502; 73610; 80053; 83690; 83735; 84100; 85025; 96374; 96375; 96376; 99285; A9270; J1170; J2060; J7120

== ENCOUNTER 2023-10-04 10:15 | Outpatient (CLI) | payer MEDICARE, MEDICAID | END 2023-10-04 23:59 | disposition home or self-care (01) | LOC: PC 10:15 | PROVIDERS: ATTEND Nurse Practitioner Adult Health | DX: Z51.5 Encounter for palliative care (principal); M54.50 Low back pain, unspecified; Z91.81 History of falling; R25.2 Cramp and spasm; R26.2 Difficulty in walking, not elsewhere classified; R11.0 Nausea; R53.83 Other fatigue; K52.1 Toxic gastroenteritis and colitis; T45.1X5A Adverse effect of antineoplastic and immunosuppressive drugs, initial encounter; C78.7 Secondary malignant neoplasm of liver and intrahepatic bile duct; C79.51 Secondary malignant neoplasm of bone; Z85.3 Personal history of malignant neoplasm of breast; Z90.13 Acquired absence of bilateral breasts and nipples; R19.7 Diarrhea, unspecified; I48.0 Paroxysmal atrial fibrillation; F41.8 Other specified anxiety disorders; Z79.899 Other long term (current) drug therapy | CPT/HCPCS: 99215 ==

== ENCOUNTER 2023-10-11 09:15 | Outpatient (CLI) | payer MEDICARE, MEDICAID | END 2023-10-11 23:59 | disposition home or self-care (01) | LOC: PC 09:15 | PROVIDERS: ATTEND Nurse Practitioner Adult Health | DX: Z51.5 Encounter for palliative care (principal); M54.50 Low back pain, unspecified; F41.8 Other specified anxiety disorders; R00.2 Palpitations; R11.2 Nausea with vomiting, unspecified; R53.83 Other fatigue; K52.1 Toxic gastroenteritis and colitis; T45.1X5A Adverse effect of antineoplastic and immunosuppressive drugs, initial encounter; C78.7 Secondary malignant neoplasm of liver and intrahepatic bile duct; C79.51 Secondary malignant neoplasm of bone; Z85.3 Personal history of malignant neoplasm of breast; Z90.13 Acquired absence of bilateral breasts and nipples | CPT/HCPCS: 99215 ==

== ENCOUNTER 2023-10-18 08:00 | Outpatient (CLI) | payer MEDICARE, MEDICAID | END 2023-10-18 23:59 | disposition home or self-care (01) | LOC: PC 08:00 | PROVIDERS: ATTEND Nurse Practitioner Adult Health | DX: Z51.5 Encounter for palliative care (principal); S32.020A Wedge compression fracture of second lumbar vertebra, initial encounter for closed fracture; W01.0XXA Fall on same level from slipping, tripping and stumbling without subsequent striking against object, initial encounter; F41.8 Other specified anxiety disorders; C50.919 Malignant neoplasm of unspecified site of unspecified female breast; R11.0 Nausea; C79.51 Secondary malignant neoplasm of bone; C78.7 Secondary malignant neoplasm of liver and intrahepatic bile duct; Z17.0 Estrogen receptor positive status [ER+]; Z71.89 Other specified counseling; Z83.42 Family history of familial hypercholesterolemia; Z86.79 Personal history of other diseases of the circulatory system | CPT/HCPCS: 99214 ==

== ENCOUNTER 2023-11-09 08:00 | Outpatient (CLI) | payer MEDICARE, MEDICAID | END 2023-11-09 23:59 | disposition home or self-care (01) | LOC: PC 08:00 | PROVIDERS: ATTEND Nurse Practitioner Adult Health | DX: Z51.5 Encounter for palliative care (principal); C50.919 Malignant neoplasm of unspecified site of unspecified female breast; E11.40 Type 2 diabetes mellitus with diabetic neuropathy, unspecified | CPT/HCPCS: 99426 ==

== ENCOUNTER 2023-11-15 08:00 | Outpatient (CLI) | payer MEDICARE, MEDICAID | END 2023-11-15 23:59 | disposition home or self-care (01) | LOC: PC 08:00 | PROVIDERS: ATTEND Nurse Practitioner Adult Health | DX: Z51.5 Encounter for palliative care (principal); C50.919 Malignant neoplasm of unspecified site of unspecified female breast; C78.7 Secondary malignant neoplasm of liver and intrahepatic bile duct; C79.51 Secondary malignant neoplasm of bone; Z79.620 Long term (current) use of immunosuppressive biologic; S32.029D Unspecified fracture of second lumbar vertebra, subsequent encounter for fracture with routine healing; Z91.81 History of falling; Z79.01 Long term (current) use of anticoagulants; Z79.899 Other long term (current) drug therapy; Z79.891 Long term (current) use of opiate analgesic; M54.50 Low back pain, unspecified; R11.0 Nausea; F33.1 Major depressive disorder, recurrent, moderate; R63.4 Abnormal weight loss; Z71.89 Other specified counseling | CPT/HCPCS: 99215 ==

== ENCOUNTER 2023-11-29 08:00 | Outpatient (CLI) | payer MEDICARE, MEDICAID | END 2023-11-29 23:59 | disposition home or self-care (01) | LOC: PC 08:00 | PROVIDERS: ATTEND Nurse Practitioner Adult Health | DX: Z51.5 Encounter for palliative care (principal); C50.919 Malignant neoplasm of unspecified site of unspecified female breast; C78.7 Secondary malignant neoplasm of liver and intrahepatic bile duct; C79.51 Secondary malignant neoplasm of bone; M54.50 Low back pain, unspecified; R63.4 Abnormal weight loss; F33.1 Major depressive disorder, recurrent, moderate; R26.2 Difficulty in walking, not elsewhere classified; F41.9 Anxiety disorder, unspecified; Z17.0 Estrogen receptor positive status [ER+]; Z68.37 Body mass index [BMI] 37.0-37.9, adult; Z71.89 Other specified counseling | CPT/HCPCS: 99215 ==

== ENCOUNTER 2023-12-01 14:34 | Outpatient (CLI) | payer MEDICARE, MEDICAID ==
[2023-12-01] MEDS ORDERED: iohexoL-300 100 ML VIAL ONE (14:43)
[2023-12-01] MEDS: iohexoL-300 100 ML VIAL IVP ONE (15:09)
--- NOTE | 2023-12-02 10:34 | CT Report ---
PROCEDURE: Abdomen/Pelvis W INDICATIONS: ABD PAIN CONTRAST: 100ml [id number] TECHNIQUE: After the administration of intravenous contrast, a CT scan of the abdomen and pelvis was performed. Images were recorded and evaluated at appropriate window settings. Reformats: coronal and sagittal. F or radiation dose reduction, the following was used: automated exposure control, adjustment of mA and /or kV according to patient size. COMPARISON: 08/08/2023 FINDINGS: Image quality: Diagnostic. Lower chest: Unremarkable. Liver: Previously described hypoattenuating lesions in the liver are less conspicuous on today's exam . Gallbladder: Cholelithiasis without wall thickening. Stable nodular thickening of the gallbladder fun dus measuring 1.0 x 0.8 cm; stability favors benign focal adenomyomatosis. Biliary tree: No intrahepatic or extrahepatic dilation, accounting for age. Spleen: No splenomegaly. Pancreas: No pancreatic ductal dilation. Adrenals: No adrenal nodule. Kidneys and ureters: No hydronephrosis. No renal cystic lesion which requires follow up. No solid mas s. Stomach, bowel and peritoneum: No gastric or small bowel dilation. No abnormal wall thickening. No pa thologic free fluid. Lymph nodes: Decreased retroperitoneal adenopathy. Examples include: - 2.1 x 0.9 cm upper periaortic node, previously 3.5 x 1.4 cm (series 2, image 48). -0.6 cm lower periaortic node, previously 0.7 cm (series 2, image 62). Vessels: No infrarenal aortic aneurysm. Patent portal vein. Aneurysm of the right renal artery measur ing 1.6 x 1.1 cm (series 2, image 42). PELVIS Reproductive organs: Unremarkable. Bladder: No abnormal wall thickening, accounting for underdistention. Pelvic lymph nodes: Similar non-enlarged pathology lymph nodes, index node measures 8 mm in the left common iliac station, previously 9 mm. Bones: Vertebral plasty of L2. No aggressive osseous abnormality. Other: No significant ventral or inguinal hernia. IMPRESSION: No findings to explain the patient's abdominal pain. Decreased retroperitoneal adenopathy. Previously described hypoattenuating lesions of the liver are less conspicuous on today's exam. 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 Yearly follow-up with CTA is recommended per cons ensus guidelines. Vertebroplasty of L2. Reviewed by: Johnson Matthews MD on 12/02/2023 10:32 AM PDT Approved by: Johnson Matthews MD on 12/02/2023 10:32 AM PDT Station ID: [id number]
== END 2023-12-01 14:35 | disposition home or self-care (01) ==
LOC: DI 14:34
PROVIDERS: ATTEND Internal Medicine
DX: R10.9 Unspecified abdominal pain (principal); K80.20 Calculus of gallbladder without cholecystitis without obstruction; R59.0 Localized enlarged lymph nodes; I72.2 Aneurysm of renal artery
CPT/HCPCS: 74177; Q9967

== ENCOUNTER 2023-12-14 08:48 | Outpatient (CLI) | payer MEDICARE, MEDICAID ==
[2023-12-14 10:17] LABS: ESTIMATED AVERAGE GLUCOSE 131 mg/dL (70-100); HEMOGLOBIN A1c% 6.2 % (4.27-6.07)
== END 2023-12-14 08:49 | disposition home or self-care (01) ==
LOC: LAB 08:48
PROVIDERS: ATTEND Internal Medicine
DX: E11.42 Type 2 diabetes mellitus with diabetic polyneuropathy (principal)
CPT/HCPCS: 36415; 83036

== ENCOUNTER 2024-01-03 14:47 | Emergency (ER) | payer MEDICARE, MEDICAID ==
--- NOTE | 2024-01-03 15:49 | ED Physician Documentation ---
History of Present Illness - Stated complaint Stated Complaint: N/V - Chief complaint Chief Complaint: Abd Pain - History obtained from History obtained from: Patient - History of Present Illness Timing: How many weeks ago (1) - Additonal information Additional information: Patient is a 68-year-old female with a history of metastatic breast cancer who presents to the emergency department complaining of nausea and vomiting ongoing for the past week since her last chemotherapy. She states she [place] [facility] and [place], but was sent here instead. She states that they have tried her on Compazine and Zofran without relief of her symptoms. Patient states that she had a "low-grade fever" 1 day last week but has not had any fever this week. She states that the oncologist prescribed lorazepam for her nausea and vomiting but that is on her allergy list so she did not take it. She is not having any significant pain anywhere other than her usual cancer pain. No chills. No cough or congestion. Had a recent negative COVID test. PD PAST MEDICAL HISTORY - Past Medical History Past Medical History: Yes Cardiovascular: Hypertension, High cholesterol, Peripheral Vascular Disease, Murmur Respiratory: Sleep apnea, CPAP use Neuro: Headaches, Peripheral neuropathy, Fainting Endocrine/Autoimmune: Type 2 diabetes GI: GERD, Cholelithiasis MUSEUM REGISTRAR: Miscarriage(s), Breast cancer : None HEENT: Chronic vision loss, Chronic sinusitis Psych: Anxiety Musculoskeletal: Osteoarthritis Derm: Other - Past Surgical History Past Surgical History: Yes Ortho: Hip replacement, Knee replacement, Spine surgery /MUSEUM REGISTRAR: Tubal ligation, Other - Present Medications Home Medications: Ambulatory Orders Medication Instructions Recorded Confirmed Sertraline HCl 150 mg PO DAILY 06/27/18 12/27/23 Levothyroxine Sodium [Levoxyl] 25 mcg PO QDAC 04/16/21 12/27/23 Dulaglutide [Trulicity] 0.75 mg SQ UD 11/10/21 12/27/23 Loperamide [Imodium] 2 mg PO ONCE PRN MDD 8 CAPS (16 MG) 12/24/21 12/27/23 Apixaban [Eliquis] 2.5 mg PO BID 01/05/22 12/27/23 Celecoxib [CeleBREX] 100 mg PO BID 03/09/22 12/27/23 busPIRone [Buspar] 15 mg PO DAILY 04/20/22 12/27/23 Tamoxifen [Nolvadex] 20 mg PO DAILY 10/05/22 12/27/23 Diphenoxylate/Atropine [Lomotil] See Rx Instructions .ROUTE .COMPLEX 02/24/23 12/27/23 Fam-Trastuzumab Deruxtecn-Nxki See Rx Instructions .ROUTE .COMPLEX 08/03/23 12/27/23 [Enhertu] Magnesium Glycinate 120 mg PO TID 08/04/23 12/27/23 OLANZapine [Zyprexa] 2.5 mg PO UD 08/30/23 12/27/23 Pregabalin 150 mg PO TID 09/02/23 12/27/23 Rosuvastatin Calcium 20 mg PO DAILY 09/28/23 12/27/23 methocarbamoL [Robaxin] 500 mg PO TID PRN #20 tablet 09/28/23 12/27/23 Hydromorphone HCl 2 mg PO Q4HR 10/25/23 12/27/23 carvediloL [Coreg] 3.125 mg PO BID 10/25/23 12/27/23 dexAMETHasone [Decadron] 8 mg PO DAILY 3 Days #3 tablet 10/25/23 cephALEXin [Keflex] 500 mg PO Q6H #20 cap 01/03/24 - Allergies Allergies/Adverse Reactions: Allergies Allergy/AdvReac Type Severity Reaction Status Date / Time adhesive Allergy Unknown Verified 01/03/24 14:54 anastrozole Allergy Unknown Verified 01/03/24 14:54 hydroxyzine Allergy Itching Verified 01/03/24 14:54 lorazepam Allergy Emesis Verified 01/03/24 14:54 meclizine Allergy Emesis Verified 01/03/24 14:54 silver Allergy Unknown Verified 01/03/24 14:54 [From Tegaderm AG Mesh] clindamycin AdvReac Unknown Verified 01/03/24 14:54 codeine AdvReac Nausea Verified 01/03/24 14:54 gabapentin AdvReac Dizziness Verified 01/03/24 14:54 - Social History Does the pt smoke?: No Smoking Status: Never smoker Does the pt drink ETOH?: No Does the pt have substance abuse?: No - Immunizations Immunizations are current?: Yes - POLST Patient has POLST: No POLST Status: Full Code PD ED PE NORMAL - Vitals Vital signs reviewed: Yes - General General: Alert and oriented X 3, No acute distress - HEENT HEENT: PERRL, Moist mucous membranes - Neck Neck: Supple, no meningeal sign - Cardiac Cardiac: RRR, Strong equal pulses - Respiratory Respiratory: No respiratory distress, Clear bilaterally - Abdomen Abdomen: Soft, Non tender, Non distended - Derm Derm: Warm and dry, No rash - Extremities Extremities: No calf tenderness / cord - Neuro Neuro: Alert and oriented X 3 - Psych Psych: Normal mood, Normal affect Results - Vitals Vitals: Vital Signs - 24 hr 01/03/24 01/03/24 01/03/24 14:54 18:20 20:00 Temperature 36.8 C 36.3 C L Heart Rate 54 L 78 56 L Respiratory 16 18 18 Rate Blood Pressure 120/78 161/87 H 149/85 H O2 Saturation 98 95 96 01/03/24 21:07 Temperature 36.5 C Heart Rate 57 L Respiratory 16 Rate Blood Pressure 152/82 H O2 Saturation 96 Oxygen O2 Source Room air - Labs Labs: Laboratory Tests 01/03/24 01/03/24 01/03/24 15:59 16:06 16:06 WBC 5.6 RBC 4.21 Hgb 13.2 Hct 39.7 MCV 94.3 MCH 31.4 H MCHC 33.2 RDW 14.2 Plt Count 170 MPV 11.2 H Neut # (Auto) 4.2 Lymph # (Auto) 0.8 L [place] # (Auto) 0.4 Eos # (Auto) 0.1 Baso # (Auto) 0.0 Absolute Nucleated RBC 0.00 Nucleated RBC % 0.0 Sodium 138 Potassium 3.4 L Chloride 104 Carbon Dioxide 25 Anion Gap 9.0 BUN 23 H Creatinine 0.9 Estimated GFR (MDRD) 62 L Glucose 102 Calcium 9.5 Phosphorus 3.4 Magnesium 1.5 L Total Bilirubin 0.9 AST 26 ALT 15 Alkaline Phosphatase 68 Total Protein 6.8 Albumin 3.7 Globulin 3.1 Albumin/Globulin Ratio 1.2 Lipase 41 Urine Color YELLOW Urine Clarity CLOUDY Urine pH 5.5 Ur Specific [place] 1.020 Urine Protein TRACE Urine Glucose (UA) NEGATIVE Urine Ketones NEGATIVE Urine Occult Blood TRACE-INTA Urine Nitrite POSITIVE H Urine Bilirubin NEGATIVE Urine Urobilinogen 0.2 (NORMAL) Ur Leukocyte Esterase MODERATE H Urine RBC 0-5 Urine WBC >25 H Ur Squamous Epith Cells RARE Squamous Urine Bacteria Many H Ur Microscopic Review INDICATED Urine Culture Comments INDICATED - Rads (name of study) cxr Relevant Findings:: Final report received, See rad report PD Medical Decision Making - ED course Complexity details: reviewed results, re-evaluated patient, considered differential, d/w patient ED course: 68-year-old female with metastatic breast cancer complains of mostly nausea in the emergency department. She did report that she had a fever a few days ago, but none now. Her doctor had requested a chest x-ray so this was performed. Does not show any acute abnormalities. She is not coughing I do not suspect respiratory illness. Does have a UTI and was given Rocephin for this. She was also given Phenergan, Zofran and a scopolamine patch was placed for her nausea and vomiting. She is tolerating p.o. without difficulty and is able to take her medications without difficulty. Given 2 L of IV fluid as well. Abdomen remains soft, nontender nondistended. No evidence of sepsis. We will leave the scopolamine patch on for 3 days to see if this helps her nausea, she can have this prescribed through her doctor as needed. Patient is comfortable going home at this time and feels much better. Patient counseled regarding signs and symptoms for which I believe and urgent re-evaluation would be necessary. Patient with good understanding of and agreement to plan and is comfortable going home at this time This document was made in part using voice recognition software. While efforts are made to proofread this document, sound alike and grammatical errors may occur. Departure - Departure Disposition: 01 Home, Self Care Clinical Impression: Metastatic breast cancer UTI (urinary tract infection) Qualifiers: Urinary tract infection type: acute cystitis Hematuria presence: without hematuria Qualified Code(s): N30.00 - Acute cystitis without hematuria Vomiting Qualifiers: Vomiting type: unspecified Nausea presence: with nausea Qualified Code(s): R11.2 - Nausea with vomiting, unspecified Condition: Good Instructions: ED UTI Cystitis Female, ED Nausea Vomiting Follow-Up: Jah Marie MD [Primary Care Provider] - Prescriptions: cephALEXin [Keflex] 500 mg PO Q6H #20 cap Comments: Take all antibiotics and gone. Please follow-up with your doctor for further care. We have placed a scopolamine patch on you, this can stay on for 72 hours and then you can remove the patch. If this works well for you, your doctor can prescribe more of these for you. They can cause dilation of your pupil as well as blurred vision, be careful not to touch the patch. Please return if you worsen. Your prescription was sent to [facility] in [place] Forms: PCP List Discharge Date/Time: 01/03/24 21:32
[2024-01-03 16:12] LABS: BASOPHILS % (AUTO) 0.5 %; EOSINOPHILS # (AUTO) 0.1 10^3/uL (0.0-0.7); EOSINOPHILS % (AUTO) 1.4 %; HCT - HEMATOCRIT 39.7 % (37.0-47.0); HGB - HEMOGLOBIN 13.2 g/dL (12.0-16.0); LYMPHOCYTES # (AUTO) 0.8 10^3/uL (1.5-3.5); LYMPHOCYTES % (AUTO) 14.4 %; MEAN CORPUSCULAR HEMOGLOBIN 31.4 pg (27.0-31.0); MEAN CORPUSCULAR HGB CONC 33.2 g/dL (32.0-36.0); MEAN CORPUSCULAR VOLUME 94.3 fL (81.0-99.0); MEAN PLATELET VOLUME 11.2 fL (7.9-10.8); MONOCYTES # (AUTO) 0.4 10^3/uL (0.0-1.0); MONOCYTES % (AUTO) 7.9 %; NEUTROPHILS # (AUTO) 4.2 10^3/uL (1.5-6.6); NEUTROPHILS % (AUTO) 75.4 %; PLT - PLATELET COUNT 170 10^3/uL (130-450); RED BLOOD COUNT 4.21 10^6/uL (4.20-5.40); RED CELL DISTRIBUTION WIDTH 14.2 % (12.0-15.0); WHITE BLOOD COUNT 5.6 x10^3/uL (4.8-10.8)
[2024-01-03] MEDS: SODIUM CHLORIDE 0.9% 1,000 ML IV STA ×2 (16:13→18:34)
[2024-01-03] MEDS: PROMETHAZINE INJ 25 MG in SODIUM CHLORIDE 0.9% 50 ML IV STA (16:13)
[2024-01-03 16:17] LABS: BILIRUBIN,URINE NEGATIVE (NEGATIVE); GLUCOSE, URINE (UA) NEGATIVE (NEGATIVE); KETONES,URINE (UA) NEGATIVE (NEGATIVE); LEUKOCYTE ESTERASE, URINE MODERATE (NEGATIVE); NITRITE,URINE POSITIVE (NEGATIVE); OCCULT BLOOD,URINE TRACE-INTA (NEGATIVE); PH,URINE 5.5 PH (5.0-7.5); PROTEIN,URINE TRACE mg/dL (NEGATIVE); UROBILINOGEN,URINE 0.2 (NORMAL) E.U./dL (NORMAL)
[2024-01-03 16:18] LABS: CLARITY,URINE CLOUDY (CLEAR)
[2024-01-03 16:24] LABS: RBC,URINE 0-5 /HPF (0-5); SQUAMOUS EPITHELIAL CELL,UR RARE Squamous (<= Few); WBC,URINE >25 /HPF (0-5)
[2024-01-03 16:25] LABS: BACTERIA,URINE Many /HPF (None Seen)
[2024-01-03 16:27] LABS: ALBUMIN 3.7 g/dL (3.2-5.5); ALBUMIN/GLOBULIN RATIO 1.2 (1.0-2.2); BILIRUBIN,TOTAL 0.9 mg/dL (0.2-1.0); CALCIUM 9.5 mg/dL (8.5-10.3); CREATININE 0.9 mg/dL (0.6-1.3); MAGNESIUM 1.5 mg/dL (1.7-2.3); PHOSPHORUS 3.4 mg/dL (2.5-5.0); POTASSIUM 3.4 mmol/L (3.5-4.5); TOTAL PROTEIN 6.8 g/dL (6.4-8.9)
--- NOTE | 2024-01-03 16:44 | XRAY Report ---
PROCEDURE: Chest 2V INDICATIONS: fever TECHNIQUE: 2 views of the chest were acquired. COMPARISON: 09/13/2023. FINDINGS: Surgical changes and devices: Right chest wall Port-A-Cath tip is in SVC. Surgical clips are noted i n left axilla and left breast. Lungs and pleura: No pleural effusions or pneumothorax. No definite focal infiltrate. Mediastinum: Mediastinal contours appear normal. Heart size is normal. Bones and chest wall: No suspicious bony lesions. Overlying soft tissues appear unremarkable. IMPRESSION: No acute cardiopulmonary process. Reviewed by: Artie García MD on 01/03/2024 4:42 PM PDT Approved by: Artie García MD on 01/03/2024 4:42 PM PDT Station ID: [id number]
[2024-01-03] MEDS: cefTRIAXone 1 GM VIAL IVP STA (16:53)
[2024-01-03] MEDS: HYDROmorphone 1 MG/ML CARPUJECT IVP STA (17:50)
[2024-01-03] MEDS: ONDANSETRON 4 MG/2 ML VIAL IVP STA (18:34)
[2024-01-03] MEDS: SCOPOLAMINE PATCH TOP STA (20:21)
[2024-01-03 20:39] VITALS: O2SAT 96
[2024-01-03 21:11] VITALS: BP 152/82
== END 2024-01-03 21:32 | disposition home or self-care (01) ==
LOC: ED 14:47
DX: R11.2 Nausea with vomiting, unspecified (principal); N39.0 Urinary tract infection, site not specified; C50.919 Malignant neoplasm of unspecified site of unspecified female breast; Z88.8 Allergy status to other drugs, medicaments and biological substances
CPT/HCPCS: 36415; 71046; 80053; 81001; 83690; 83735; 84100; 85025; 87086; 87181; 96365; 96375; 99284; 99285; J1170; J3490; J7040; 81003

== ENCOUNTER 2024-06-19 16:43 | Inpatient (IN) ==
--- NOTE | 2024-06-19 17:18 | ED Physician Documentation ---
History of Present Illness Stated complaint Stated Complaint: R ARM PX Chief complaint Chief Complaint: Ext Problem History obtained from History obtained from: Patient History of Present Illness Timing: Prior to arrival Additonal information Additional information: Patient is a 69-year-old female on palliative care for past medical history of metastatic breast cancer. Patient presents to the emergency department with right arm pain and significant swelling. She had an ultrasound done on Tuesday before she had worsening right arm pain that showed right mid subclavian and right basilic nonocclusive deep vein clot. Patient noted that today she had worsening pain to her right elbow that has now extended to her forearm. She has significant tenderness swelling and warmth to touch. She has no fevers or chills but significant pain with light movement. She has no history of gout. She has no recent trauma to the area. She has no discoloration redness to the area. She denies ever having these symptoms before. She notes pain is mainly in her elbow and wrist along the joints it feels swollen and warm to touch. Meds/Allgy Home Medications Ambulatory Orders Medication Instructions Recorded Confirmed dulaglutide 0.75 mg/0.5 mL 0.75 mg SQ UD 11/10/21 05/16/24 subcutaneous pen injector (Trulicity) loperamide 2 mg capsule 2 mg PO ONCE PRN Diarrhea 12/24/21 05/16/24 fam-trastuzumab deruxtecn-nxki 100 See Rx Instructions .Route .COMPLEX 08/03/23 05/16/24 mg intravenous solution (Enhertu) Permanent Disabled Placard 02/03/24 05/16/24 diphenoxylate-atropine 2.5 See Rx Instructions .Route QID 02/03/24 05/16/24 mg-0.025 mg tablet ondansetron 8 mg disintegrating 8 mg PO TID 02/03/24 05/16/24 tablet prochlorperazine maleate 10 mg 10 mg PO Q6H PRN nausea and 02/03/24 05/16/24 tablet (Compazine) vomiting sertraline 100 mg tablet 100 mg PO DAILY 02/03/24 05/16/24 tamoxifen 20 mg tablet 20 mg PO QDAY 02/03/24 05/16/24 levothyroxine 25 mcg tablet See Rx Instructions .Route 03/06/24 05/16/24 .COMPLEX #90 tabs rosuvastatin 20 mg tablet See Rx Instructions .Route 03/06/24 05/16/24 .COMPLEX #90 tabs sertraline 50 mg tablet 50 mg PO QDAY #90 tabs 03/09/24 05/16/24 dexamethasone 2 mg tablet 2 mg PO QDAY 03/27/24 05/16/24 metformin 500 mg tablet 500 mg PO BID #180 tabs 04/13/24 05/16/24 apixaban 2.5 mg tablet (Eliquis) 2.5 mg PO BID #60 tabs 04/20/24 05/16/24 hydromorphone 2 mg tablet 2 - 4 mg (1 - 2 x 2 mg) PO Q3H PRN 04/25/24 05/16/24 pain #100 tabs pregabalin 150 mg capsule 150 mg PO TID 05/09/24 05/16/24 celecoxib 100 mg capsule 100 mg PO BID #180 caps 05/16/24 05/16/24 carvedilol 3.125 mg tablet 3.125 mg PO BID 05/17/24 05/17/24 olanzapine 2.5 mg tablet (Zyprexa) 2.5 mg PO .qhs #30 tabs 05/17/24 05/17/24 magnesium oxide 500 mg capsule 500 mg PO QDAY low magnesium #6 05/24/24 05/24/24 caps nirmatrelvir 300 mg (150 mg 1 ea PO .COMPLEX #1 ea 06/13/24 x2)-ritonavir 100 mg tablet,dose pack (Paxlovid) Allergies Allergies Allergy/AdvReac Type Severity Reaction Status Date / Time adhesive Allergy Severe Rash Verified 06/19/24 16:53 anastrozole Allergy Dizziness Verified 06/19/24 16:53 hydroxyzine Allergy Itching Verified 06/19/24 16:53 clindamycin AdvReac Severe Nausea Verified 06/19/24 16:53 meclizine AdvReac Severe Dizziness Verified 06/19/24 16:53 silver (From Tegaderm AG AdvReac Severe Rash Verified 06/19/24 16:53 Mesh) fentanyl AdvReac Intermediate Tachycardia Verified 06/19/24 16:53 codeine AdvReac Nausea Verified 06/19/24 16:53 gabapentin AdvReac Dizziness Verified 06/19/24 16:53 lorazepam AdvReac Dizziness Verified 06/19/24 16:53 PFSH Active Problems All Active Problems COVID-19 (Acute) Secondary malignant neoplasm of bone (Acute) DVT of right axillary vein, chronic (Acute) Anorexia (Acute) Lumbar radiculopathy (Acute) Acute dehydration (Acute) Hypotension (Acute) Muscle weakness (Acute) Depression (Acute) Rash and other nonspecific skin eruption (Acute) Secondary malignant neoplasm of bone (Acute) Thrombosis due to vascular catheter (Acute) Healthcare maintenance (Acute) Ulcer of chest wall with fat layer exposed (Acute) Radiological procedure and radiotherapy as the cause of abnormal reaction of the patient, or of later complication, without mention of misadventure at the time of the procedure (Acute) Soft tissue radionecrosis (Acute) Non-pressure chronic ulcer of other part of left foot limited to breakdown of skin (Acute) Non-pressure chronic ulcer of other part of right foot with fat layer exposed (Acute) Anxiety and depression (Acute) Acute low back pain (Acute) Pressure ulcer of toe of right foot, unstageable (Acute) Pulmonary embolus, left (Acute) Arthritis of left hip (Acute) Arthritis of knee, right (Acute) Compression fracture of L2 vertebra (Acute) Type 2 diabetes mellitus with peripheral neuropathy (Acute 04/11/05) Type 2 diabetes mellitus with other skin ulcer (Acute) Non-pressure chronic ulcer of right heel and midfoot with fat layer exposed (Acute) Non-pressure chronic ulcer of other part of left foot with fat layer exposed (Acute) Chronic osteomyelitis of right foot (Acute) Onychomycosis of multiple toenails with type 2 diabetes mellitus (Acute 11/07/20) Non-alcoholic fatty liver disease (Acute 10/05/21) Asymptomatic cholelithiasis (Acute 10/05/21) Essential hypertension (Acute) Supraventricular tachycardia (Acute) Renal artery aneurysm (Chronic) Mixed hyperlipidemia (Acute 04/11/09) Hypothyroidism (Acute 03/15/21) Paroxysmal atrial flutter (Acute 09/13/23) Obstructive sleep apnea (Acute 09/27/06) Sigmoid diverticulosis (Acute 06/19/20) Seborrheic dermatitis (Acute 01/27/10) Atopic dermatitis (Acute) Allergic contact dermatitis due to adhesives (Acute 12/25/18) Major depressive disorder, recurrent episode, moderate (Acute 07/04/06) Insomnia (Chronic) Gustatory rhinitis (Acute 07/07/23) Encounter for chemotherapy management (Acute) Adenocarcinoma of left breast (Acute) HER2-positive carcinoma of left breast (Acute) Adenocarcinoma of left breast metastatic to liver (Acute) Breast cancer metastasized to pelvis (Acute) History of bisphosphonate therapy (Acute) Chemotherapy-induced neuropathy (Acute) Breast cancer, left (Acute) Metastatic breast cancer (Acute) Immunocompromised state due to drug therapy (Chronic) Chemotherapy induced diarrhea (Acute) Medical History Medical History Pain in throat Right rotator cuff tear Neutropenic fever UTI (urinary tract infection) Left leg DVT 01/2020 w/ right THR Epistaxis, recurrent (06/02/23) Community acquired pneumonia (06/12/20) Acute COVID-19 (06/16/23) Surgical History Surgical History H/O kyphoplasty 10/2023, L2 compression fracture History of total left knee replacement 04/2023 History of insertion of central venous access port 12/2021, right IJ History of liver biopsy 11/2021, metastatic breast cancer H/O skin graft 02/2020, 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 S/P total right hip arthroplasty 01/2020 H/O mastectomy 10/2018, Bilateral, modified radical on left + simple on right (no malignancy) H/O chest tube placement 2018, following thoroscopy for lung lesions, needed for bleeding w/ procedure History of insertion of central venous access port 06/2018 w/ revision in 07/2018, removed in 09/2018 due to extrusion Lumbar canal stenosis 2016, decompression surgery H/O colonoscopy 10/2007, normal S/P lumbar laminectomy 1994, L4-5 w/ spinal cord injury H/O varicose vein stripping 1993, bilateral H/O tubal ligation 05/1992, S/P dilatation and curettage 1988, for miscarriage Hx of tonsillectomy Family History Family History Father Dementia Brain tumor Mother CAD (coronary artery disease) Thyroid disorder Diabetes Social History Social History Smoking Status: Never smoker Second hand tobacco smoke exposure: No Do you dip or chew tobacco?: No Do you vape?: No Living arrangement: At home Marital Status: Living Condition: With family Support Person: Yes Relationship: Home Mobility Equipment: Wheeled walker Do you feel safe in your home environment?: Yes Suffered physical, verbal, emotional, or financial abuse?: No History of Abuse: No ETOH Use: None Substance Use: denies use Are you sexually active?: No 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[employer], [employer], 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 Service: No POLST Patient has POLST: No POLST Status: Full Code Exam Constitutional normal general appearance HENMT normocephalic and head/scalp atraumatic Eyes PERRL and EOMs intact bilaterally Neck/C-Spine visual inspection normal and trachea midline Lymph no lymphadenopathy noted Chest inspection of chest normal Respiratory breath sounds equal bilaterally, normal respiratory effort and clear to auscultation bilaterally Cardiovascular normal heart rate noted, regular rhythm noted, no gallop and no rub Extremities Right upper extremity forearm shows significant swelling compartments feel soft she does have palpable pulses and capillary refill significantly decreased range of motion at digits 1 through 5. She has sensation intact throughout right forearm. No pitting edema appreciated. Skin skin color normal Results Vitals Vitals: Vital Signs - 24 hr 06/19/24 16:47 06/19/24 18:57 06/19/24 19:35 Temperature 36.9 C Temperature Source Skin Pulse Rate 94 Respiratory Rate 22 O2 Saturation 96 O2 Source Room air Pain Intensity 10 10 9 06/19/24 19:37 06/19/24 21:23 06/19/24 21:44 Temperature Temperature Source Pulse Rate Respiratory Rate O2 Saturation O2 Source Pain Intensity 9 8 8 06/19/24 23:14 Temperature Temperature Source Pulse Rate Respiratory Rate O2 Saturation O2 Source Pain Intensity 7 Oxygen O2 Source Room air Labs Labs: Laboratory Tests 06/19/24 17:38 WBC 8.5 RBC 4.12 L Hgb 12.5 Hct 39.3 MCV 95.4 MCH 30.3 MCHC 31.8 L RDW 14.7 Plt Count 200 MPV 10.9 H Neut # (Auto) 5.8 Lymph # (Auto) 1.1 L Ector # (Auto) 1.5 H Eos # (Auto) 0.1 Baso # (Auto) 0.0 Absolute Nucleated RBC 0.00 Band Neuts % (Manual) Not Reportable Abnorm Lymph % (Manual) Not Reportable Nucleated RBC % 0.0 Neutrophils # (Manual) Not Reportable Lymphocytes # (Manual) Not Reportable Monocytes # (Manual) Not Reportable Eosinophils # (Manual) Not Reportable Basophils # (Manual) Not Reportable Differential Comment MANUAL=AUTO DIFF Platelet Estimate NORMAL (130-450,000) Platelet Morphology 1+ GIANT PLATELETS RBC Morph Micro Appear NORMAL APPEARANCE ESR 70 H Sodium 139 Potassium 4.0 Chloride 105 Carbon Dioxide 26 Anion Gap 8.0 BUN 16 Creatinine 0.7 Estimated GFR (MDRD) 83 L Glucose 105 H Uric Acid 3.0 Calcium 9.0 Total Bilirubin 0.7 AST 21 ALT 8 L Alkaline Phosphatase 67 C-Reactive Protein 12.5 H Total Protein 7.4 Albumin 3.6 Globulin 3.8 Albumin/Globulin Ratio 0.9 L Procedures Arthrocentesis Joint: Wrist Preparation: Consent obtained Anesthesia: Lidocaine 1% Fluid: Other (No fluid in joint) Aftercare: Dressing applied and No complications PD Medical Decision Making ED course Complexity details: reviewed old records and reviewed results ED course: Patient is a 69-year-old female presenting to the emergency department with right wrist swelling pain redness. Patient notes symptoms came on Tuesday and Tuesday. She developed pain to her right elbow when she woke up from her sleep and had significant swelling extending down from her right elbow to her right wrist. She has no fevers associated with that she has a history of chronic DVT to her right arm she is on apixaban. She had an ultrasound on Tuesday and then developed worsening swelling on Tuesday. Vitals here in the ED showed no tachycardia she is afebrile. Right arm shows significant redness swelling and significant tenderness to touch throughout the arm. He has sensation digits 1 through 5 radial pulse but decreased movement of digits 4 5 and flexion extension of the wrist. Ultrasound performed here in the ED does show significant effusion to right elbow and a larger effusion to right wrist. She had x-rays performed of her right elbow that does show concerning imaging for radial head fracture with small joint effusion. I did discuss this with Dr. Virk after wrist x-ray shows no acute fractures. Recommends if there is low concern for DVT causing symptoms posterior splint continuing on apixaban and he will follow from outpatient setting as she has sensation intact and low suspicion for ulnar nerve injury at this time as it is most likely secondary to swelling. On reevaluation of patient she continues to have worsening pain pain is uncontrollable to her right wrist she has significant swelling and redness to the area and significant pain. Discussed with Dr. Lopez for a second time he recommended obtaining wrist tap for evaluation for septic joint given significant redness tenderness swelling pain and decreased range of motion. This was attempted after consent was obtained from patient no antibiotics have been given at this point. See procedure note above patient was not tolerating procedure well despite adequ ate lidocaine here in the ED. Patient will be handed over to Dr. Lugo to perform the arthrocentesis procedure listed above. See procedure note above. Discharge Plan Discharge Prescriptions: No Action levothyroxine 25 mcg tablet See Rx Instructions .ROUTE .COMPLEX Qty: 90 3RF Dose Instruction: TAKE ONE TABLET BY MOUTH ONE TIME DAILY Rx Instructions: TAKE ONE TABLET BY MOUTH ONE TIME DAILY rosuvastatin 20 mg tablet See Rx Instructions .ROUTE .COMPLEX Qty: 90 3RF Dose Instruction: TAKE ONE TABLET BY MOUTH ONE TIME DAILY Rx Instructions: TAKE ONE TABLET BY MOUTH ONE TIME DAILY sertraline 50 mg tablet 50 mg PO QDAY Qty: 90 3RF Rx Instructions: TAKE WITH 100 MG TABLET FOR A TOTAL OF 150 MG metformin 500 mg tablet 500 mg PO BID Qty: 180 3RF Rx Instructions: TAKE ONE TABLET BY MOUTH TWICE DAILY Eliquis 2.5 mg tablet 2.5 mg PO BID Qty: 60 2RF hydromorphone 2 mg tablet 2 - 4 mg PO Q3H PRN (Reason: pain) Qty: 100 0RF Rx Instructions: Maximum 10 tablets in 24 hours Paxlovid 300 mg (150 mg x 2)-100 mg tablets,dose pack 1 ea PO .COMPLEX Qty: 1 0RF Rx Instructions: One dose pack; one dose BID x 5 days sertraline 100 mg tablet 100 mg PO DAILY Rx Instructions: TAKE ONE AND A HALF TABLETS ONE TIME DAILY (TOTAL OF 150MG PER DAY) Trulicity 0.75 MG/0.5 ML pen injector 0.75 mg SQ UD Rx Instructions: Inject 0.75 mg SQ once weekly loperamide 2 MG capsule 2 mg PO ONCE MDD 8 CAPS (16 MG) PRN (Reason: Diarrhea) Patient Comments: Take 2 capsules by mouth as needed for diarrhea (at onset of severe diarrhea, then take 1 capsule after each unformed stool). Do not exceed 8 capsules per day Rx Instructions: Take 2 capsules PO at onset of severe diarrhea, then 1 capsule after each unformed stool. Do not exceed 8 capsules in 24 H. diphenoxylate-atropine 2.5-0.025 mg tablet See Rx Instructions .Route QID Rx Instructions: TAKE TWO TABLETS BY MOUTH FOUR TIMES A DAY NEEDED FOR DIARRHEA Enhertu 100 MG recon soln See Rx Instructions .Route .COMPLEX Rx Instructions: Q3W prochlorperazine maleate [Compazine] 10 mg tablet 10 mg PO Q6H PRN (Reason: nausea and vomiting) Rx Instructions: TAKE ONE TABLET BY MOUTH EVERY SIX HOURS NEEDED DIRECTED USE OF ONDANSETRON NOT EFFECTIVE FOR NAUSEA/VOMITING (DME) Permanent Disabled Placard Misc See Rx Instructions .Route Rx Instructions: USE ONE DEVICE DIRECTED. DISPLAY IN WINDOW OF bookjam. LENGTH OF NEED: 99 MONTHS. ICD-10 m70.61, m54.5 ondansetron 8 mg tablet,disintegrating 8 mg PO TID Rx Instructions: TAKE ONE TABLET ON TONGUE THREE TIMES A DAY NEEDED FOR NAUSEA tamoxifen 20 mg tablet 20 mg PO QDAY Rx Instructions: TAKE ONE TABLET BY MOUTH ONCE A DAY dexamethasone 2 mg tablet 2 mg PO QDAY Rx Instructions: TAKE ONE TABLET BY MOUTH ONCE A DAY FOR 3 DAYS AFTER CHEMO. USING WITH CHEMO. pregabalin 150 mg capsule 150 mg PO TID Rx Instructions: Tapering at this time celecoxib 100 mg capsule 100 mg PO BID Qty: 180 3RF Rx Instructions: TAKE ONE CAPSULE BY MOUTH TWICE A DAY NEEDED FOR KNEE ARTHRITIS PAIN carvedilol 3.125 mg tablet 3.125 mg PO BID olanzapine [Zyprexa] 2.5 mg tablet 2.5 mg PO .qhs Qty: 30 3RF Rx Instructions: 05/16 will change to nightly magnesium oxide 500 mg capsule 500 mg PO QDAY MDD 1000 mg Qty: 6 1RF Print Language: Japanese Stand Alone Forms: PCP List
[2024-06-19 17:42] LABS: BASOPHILS % (AUTO) 0.5 %; EOSINOPHILS # (AUTO) 0.1 10^3/uL (0.0-0.7); EOSINOPHILS % (AUTO) 0.7 %; HCT - HEMATOCRIT 39.3 % (37.0-47.0); HGB - HEMOGLOBIN 12.5 g/dL (12.0-16.0); LYMPHOCYTES # (AUTO) 1.1 10^3/uL (1.5-3.5); LYMPHOCYTES % (AUTO) 12.6 %; MEAN CORPUSCULAR HEMOGLOBIN 30.3 pg (27.0-31.0); MEAN CORPUSCULAR HGB CONC 31.8 g/dL (32.0-36.0); MEAN CORPUSCULAR VOLUME 95.4 fL (81.0-99.0); MEAN PLATELET VOLUME 10.9 fL (7.9-10.8); MONOCYTES # (AUTO) 1.5 10^3/uL (0.0-1.0); MONOCYTES % (AUTO) 17.8 %; NEUTROPHILS # (AUTO) 5.8 10^3/uL (1.5-6.6); NEUTROPHILS % (AUTO) 68.2 %; PLT - PLATELET COUNT 200 10^3/uL (130-450); RED BLOOD COUNT 4.12 10^6/uL (4.20-5.40); RED CELL DISTRIBUTION WIDTH 14.7 % (12.0-15.0); WHITE BLOOD COUNT 8.5 x10^3/uL (4.8-10.8)
[2024-06-19 17:55] LABS: ALBUMIN 3.6 g/dL (3.2-5.5); ALBUMIN/GLOBULIN RATIO 0.9 (1.0-2.2); BILIRUBIN,TOTAL 0.7 mg/dL (0.2-1.0); CREATININE 0.7 mg/dL (0.6-1.3); TOTAL PROTEIN 7.4 g/dL (6.4-8.9)
[2024-06-19 18:19] LABS: PLATELET MORPHOLOGY 1+ GIANT PLATELETS (NORMAL); RBC MORPHOLOGY (MULTIPLE) NORMAL APPEARANCE (NORMAL)
[2024-06-19 18:20] LABS: DIFFERENTIAL COMMENT MANUAL=AUTO DIFF; PLATELET ESTIMATE, MANUAL NORMAL (130-450,000) (NORMAL)
[2024-06-19] MEDS: MORPHINE 2 MG/ML CARPUJECT IVP STA ×2 (18:57→19:35)
--- NOTE | 2024-06-19 20:11 | XRAY Report ---
PROCEDURE: XR Elbow 1 RT INDICATIONS: right elbow pain, hx of fractures TECHNIQUE: One views of the elbow were acquired. COMPARISON: None. FINDINGS AND IMPRESSION: 1 view of the elbow, without displaced fracture or dislocation. However, possible small joint effusio n is present, which may be from an occult injury. Reviewed by: Jhon Arredondo MD on 06/19/2024 8:10 PM PDT Approved by: Jhon Arredondo MD on 06/19/2024 8:10 PM PDT Station ID: [id number]
--- NOTE | 2024-06-19 21:40 | XRAY Report ---
PROCEDURE: XR Wrist 3+V RT INDICATIONS: right wrist pain and swelling TECHNIQUE: 3 views of the wrist were acquired. COMPARISON: None. FINDINGS AND IMPRESSION: No displaced fracture or dislocation. Background moderate degenerative changes particularly at the ba se of the thumb. Chondrocalcinosis and nonacute appearing bone fragments dorsal to the carpal bones a nd adjacent to the ulnar styloid. Soft tissue swelling. If there is high concern for further derangement, consider MRI evaluation. Reviewed by: Jhon Arredondo MD on 06/19/2024 9:39 PM PDT Approved by: Jhon Arredondo MD on 06/19/2024 9:39 PM PDT Station ID: [id number]
[2024-06-19] MEDS: HYDROmorphone 0.5 MG/0.5 ML SYRINGE IM STA (21:44)
--- NOTE | 2024-06-19 22:30 | Ultrasound Report ---
PROCEDURE: US Venous Duplex RT INDICATIONS: swelling of right arm TECHNIQUE: Real-time imaging, as well as color and pulse Doppler interrogation, were performed of the arm veins. COMPARISON: None. FINDINGS AND IMPRESSION: Limited examination due to patient factors. No deep venous thrombus identified. Possible superficial thrombophlebitis in the anterolateral shoulder. Small mild free fluid at the elbow measuring 1.4 x 0.2 cm. Small amount free fluid in the wrist measu ring 1.6 x 0.7 x 2.8 cm. Reviewed by: Jhon Arredondo MD on 06/19/2024 10:28 PM PDT Approved by: Jhon Arredondo MD on 06/19/2024 10:28 PM PDT Station ID: [id number]
[2024-06-19] MEDS: lidocaine 1% 20 ML MDV SUBQ ONE (23:16)
[2024-06-19] MEDS ORDERED: VANCOMYCIN 1 GM VIAL ONE (23:20)
[2024-06-19] MEDS: cefTRIAXone 1 GM VIAL IVP STA (23:25)
[2024-06-19] MEDS: VANCOMYCIN INJ 2 GM in SODIUM CHLORIDE 0.9% 500 ML IV ONE (23:30)
--- NOTE | 2024-06-20 00:13 | ED Physician Documentation ---
ED Addendum Addendum Addendum: No changes during my shift, patient signed out to Dr. Lugo for overnight care. Discharge Plan Discharge Prescriptions: No Action levothyroxine 25 mcg tablet See Rx Instructions .ROUTE .COMPLEX Qty: 90 3RF Dose Instruction: TAKE ONE TABLET BY MOUTH ONE TIME DAILY Rx Instructions: TAKE ONE TABLET BY MOUTH ONE TIME DAILY rosuvastatin 20 mg tablet See Rx Instructions .ROUTE .COMPLEX Qty: 90 3RF Dose Instruction: TAKE ONE TABLET BY MOUTH ONE TIME DAILY Rx Instructions: TAKE ONE TABLET BY MOUTH ONE TIME DAILY sertraline 50 mg tablet 50 mg PO QDAY Qty: 90 3RF Rx Instructions: TAKE WITH 100 MG TABLET FOR A TOTAL OF 150 MG metformin 500 mg tablet 500 mg PO BID Qty: 180 3RF Rx Instructions: TAKE ONE TABLET BY MOUTH TWICE DAILY Eliquis 2.5 mg tablet 2.5 mg PO BID Qty: 60 2RF hydromorphone 2 mg tablet 2 - 4 mg PO Q3H PRN (Reason: pain) Qty: 100 0RF Rx Instructions: Maximum 10 tablets in 24 hours Paxlovid 300 mg (150 mg x 2)-100 mg tablets,dose pack 1 ea PO .COMPLEX Qty: 1 0RF Rx Instructions: One dose pack; one dose BID x 5 days sertraline 100 mg tablet 100 mg PO DAILY Rx Instructions: TAKE ONE AND A HALF TABLETS ONE TIME DAILY (TOTAL OF 150MG PER DAY) Trulicity 0.75 MG/0.5 ML pen injector 0.75 mg SQ UD Rx Instructions: Inject 0.75 mg SQ once weekly loperamide 2 MG capsule 2 mg PO ONCE MDD 8 CAPS (16 MG) PRN (Reason: Diarrhea) Patient Comments: Take 2 capsules by mouth as needed for diarrhea (at onset of severe diarrhea, then take 1 capsule after each unformed stool). Do not exceed 8 capsules per day Rx Instructions: Take 2 capsules PO at onset of severe diarrhea, then 1 capsule after each unformed stool. Do not exceed 8 capsules in 24 H. diphenoxylate-atropine 2.5-0.025 mg tablet See Rx Instructions .Route QID Rx Instructions: TAKE TWO TABLETS BY MOUTH FOUR TIMES A DAY NEEDED FOR DIARRHEA Enhertu 100 MG recon soln See Rx Instructions .Route .COMPLEX Rx Instructions: Q3W prochlorperazine maleate [Compazine] 10 mg tablet 10 mg PO Q6H PRN (Reason: nausea and vomiting) Rx Instructions: TAKE ONE TABLET BY MOUTH EVERY SIX HOURS NEEDED DIRECTED USE OF ONDANSETRON NOT EFFECTIVE FOR NAUSEA/VOMITING (DME) Permanent Disabled Placard Misc See Rx Instructions .Route Rx Instructions: USE ONE DEVICE DIRECTED. DISPLAY IN WINDOW OF [employer]HC[employer]. LENGTH OF NEED: 99 MONTHS. ICD-10 m70.61, m54.5 ondansetron 8 mg tablet,disintegrating 8 mg PO TID Rx Instructions: TAKE ONE TABLET ON TONGUE THREE TIMES A DAY NEEDED FOR NAUSEA tamoxifen 20 mg tablet 20 mg PO QDAY Rx Instructions: TAKE ONE TABLET BY MOUTH ONCE A DAY dexamethasone 2 mg tablet 2 mg PO QDAY Rx Instructions: TAKE ONE TABLET BY MOUTH ONCE A DAY FOR 3 DAYS AFTER CHEMO. USING WITH CHEMO. pregabalin 150 mg capsule 150 mg PO TID Rx Instructions: Tapering at this time celecoxib 100 mg capsule 100 mg PO BID Qty: 180 3RF Rx Instructions: TAKE ONE CAPSULE BY MOUTH TWICE A DAY NEEDED FOR KNEE ARTHRITIS PAIN carvedilol 3.125 mg tablet 3.125 mg PO BID olanzapine [Zyprexa] 2.5 mg tablet 2.5 mg PO .qhs Qty: 30 3RF Rx Instructions: 2/ will change to nightly magnesium oxide 500 mg capsule 500 mg PO QDAY MDD 1000 mg Qty: 6 1RF Print Language: Chinese Stand Alone Forms: PCP List
[2024-06-20] MEDS: HYDROmorphone 1 MG/ML SYRINGE IVP PRN ×2 (00:34→07:41)
--- NOTE | 2024-06-20 00:55 | ED Physician Documentation ---
ED Addendum Addendum Addendum: I received signout/turnover of care of this patient from MALIA Reyes; please see her note for complete H&P. In brief, patient presents with RUE pain, swelling. Found to have erythema, swelling, TTP, and limited ROM of right wrist. Concern is infectious etiology with differential diagnosis to include cellulitis, septic arthritis. After x- rays and blood tests were resulted, MALIA Reyes discussed this case with the on- call orthopedic surgeon for [facility] (Dr. Lopez). His recommendation was to undertake arthrocentesis of the right wrist. Per sign-out, the plan after the arthrocentesis would involve antibiotics and inpatient stay for further treatment/observation (likely more aggressive management if arthrocentesis results are consistent with septic arthritis). MALIA Reyes's shift had ended at that point, and thus I attempted the right wrist arthrocentesis. Unfortunately, after 2 attempts, I was unable to obtain any fluid from the right wrist, and patient then refused any further attempts. I got back in touch with Dr. Lopez to update him with this information. His recommendation is to hold patient in ED overnight (there are no beds available at this time at [facility]), start the antibiotics he had recommended to MALIA Reyes which were being held until such time as the arthrocentesis was undertaken/attempted (vancomycin, ceftriaxone), and Dr. Lopez will evaluate the patient in the morning. Part of the sign-out I received from MALIA Reyes included findings on plain-film x-rays of the right elbow concerning for occult fracture of right radial head. MALIA Reyes ordered a splint for this. After MALIA Reyes's shift had ended and she had left for the day, I was told by ED RN that the patient is vehemently refusing the splint. Thus, I canceled the order for the splint. Discharge Plan Discharge Patient Disposition: ED Transfer to [facility] Clinical Impression: Cellulitis Qualifiers: Site of cellulitis: extremity Site of cellulitis of extremity: upper extremity Laterality: right Qualified Code(s): L03.113 - Cellulitis of right upper limb Interventions: ED Admission Assessment Last Done: 06/20/24 11:30
[2024-06-20] MEDS: OLANZapine ODT 5 MG TABLET TL STA (02:08)
--- NOTE | 2024-06-20 07:48 | PREOP HISTORY & PHYSICAL ---
Surgical History & Physical Chief Complaint/HPI History of Present Illness: CC: RIGHT wrist pain HPI: 69-year-old female on palliative care for past medical history of metastatic breast cancer. Patient presents to the emergency department with right arm pain and significant swelling. She had scheduled ultrasound done on Tuesday (known right upper extremity DVT since 2016) before she had worsening right arm pain that showed right mid subclavian and right basilic nonocclusive deep vein clot (stable). Patient noted that yesterday she had worsening pain to her right elbow that has now extended to her forearm. She has significant tenderness swelling and warmth to touch. She has no fevers or chills but significant pain with light movement. She has no history of gout. She has no recent trauma to the area. She has no discoloration redness to the area. She denies ever having these symptoms before. She notes pain is mainly in her elbow and wrist along the joints it feels swollen and warm to touch. During the workup the ED found a possible non-displaced radial head fracture however the patient denies new trauma and minimal pain with movement of the elbow at this point. The majority of her pain is about the dorsum of the wrist. Home Meds and Allergies Active Medications Generic Name Dose Route Start Last Admin Trade Name Freq PRN Reason Stop Dose Admin Hydromorphone HCl 2 mg 06/20/24 07:37 06/20/24 07:41 Hydromorphone 1 Mg/Ml Syringe IVP 2 mg Q2HR PRN Administration PAIN 5-7 Vancomycin HCl 1.25 gm/ Sodium 250 mls @ 166.667 mls/hr 06/20/24 11:30 Chloride IV Q12H JAY dulaglutide 0.75 mg/0.5 mL subcutaneous pen injector (Trulicity) 0.75 mg SQ UD 11/10/21 loperamide 2 mg capsule 2 mg PO ONCE PRN Diarrhea 12/24/21 fam-trastuzumab deruxtecn-nxki 100 mg intravenous solution (Enhertu) See Rx Instructions .Route .COMPLEX 08/03/23 Permanent Disabled Placard 02/03/24 diphenoxylate-atropine 2.5 mg-0.025 mg tablet See Rx Instructions .Route QID 02/03/24 ondansetron 8 mg disintegrating tablet 8 mg PO TID 02/03/24 prochlorperazine maleate 10 mg tablet (Compazine) 10 mg PO Q6H PRN nausea and vomiting 02/03/24 sertraline 100 mg tablet 100 mg PO DAILY 02/03/24 tamoxifen 20 mg tablet 20 mg PO QDAY 02/03/24 levothyroxine 25 mcg tablet See Rx Instructions .Route .COMPLEX #90 tabs 03/06/24 rosuvastatin 20 mg tablet See Rx Instructions .Route .COMPLEX #90 tabs 03/06/24 sertraline 50 mg tablet 50 mg PO QDAY #90 tabs 03/09/24 dexamethasone 2 mg tablet 2 mg PO QDAY 03/27/24 metformin 500 mg tablet 500 mg PO BID #180 tabs 04/13/24 apixaban 2.5 mg tablet (Eliquis) 2.5 mg PO BID #60 tabs 04/20/24 hydromorphone 2 mg tablet 2 - 4 mg (1 - 2 x 2 mg) PO Q3H PRN pain #100 tabs 04/25/24 pregabalin 150 mg capsule 150 mg PO TID 05/09/24 celecoxib 100 mg capsule 100 mg PO BID #180 caps 05/16/24 carvedilol 3.125 mg tablet 3.125 mg PO BID 05/17/24 olanzapine 2.5 mg tablet (Zyprexa) 2.5 mg PO .qhs #30 tabs 05/17/24 magnesium oxide 500 mg capsule 500 mg PO QDAY low magnesium #6 caps 05/24/24 nirmatrelvir 300 mg (150 mg x2)-ritonavir 100 mg tablet,dose pack (Paxlovid) 1 ea PO .COMPLEX #1 ea 06/13/24 Allergies Allergy/AdvReac Type Severity Reaction Status Date / Time adhesive Allergy Severe Rash Verified 06/19/24 16:53 anastrozole Allergy Dizziness Verified 06/19/24 16:53 hydroxyzine Allergy Itching Verified 06/19/24 16:53 clindamycin AdvReac Severe Nausea Verified 06/19/24 16:53 meclizine AdvReac Severe Dizziness Verified 06/19/24 16:53 silver (From Tegaderm AG AdvReac Severe Rash Verified 06/19/24 16:53 Mesh) fentanyl AdvReac Intermediate Tachycardia Verified 06/19/24 16:53 codeine AdvReac Nausea Verified 06/19/24 16:53 gabapentin AdvReac Dizziness Verified 06/19/24 16:53 lorazepam AdvReac Dizziness Verified 06/19/24 16:53 Vital Signs O2 Saturation: 94 Patient Review Patient Review Pertinent Tests Reviewed [facility] Medical History Medical History Pain in throat Right rotator cuff tear Neutropenic fever UTI (urinary tract infection) Left leg DVT 01/2020 w/ right THR Epistaxis, recurrent (06/02/23) Community acquired pneumonia (06/12/20) Acute COVID-19 (06/16/23) Surgical History Surgical History H/O kyphoplasty 10/2023, L2 compression fracture History of total left knee replacement 04/2023 History of insertion of central venous access port 12/2021, right IJ History of liver biopsy 11/2021, metastatic breast cancer H/O skin graft 02/2020, 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 S/P total right hip arthroplasty 01/2020 H/O mastectomy 10/2018, Bilateral, modified radical on left + simple on right (no malignancy) H/O chest tube placement 2018, following thoroscopy for lung lesions, needed for bleeding w/ procedure History of insertion of central venous access port 06/2018 w/ revision in 07/2018, removed in 09/2018 due to extrusion Lumbar canal stenosis 2016, decompression surgery H/O colonoscopy 10/2007, normal S/P lumbar laminectomy 1994, L4-5 w/ spinal cord injury H/O varicose vein stripping 1993, bilateral H/O tubal ligation 05/1992, S/P dilatation and curettage 1988, for miscarriage Hx of tonsillectomy Family History Family History Father Dementia Brain tumor Mother CAD (coronary artery disease) Thyroid disorder Diabetes Social History Social History Smoking Status: Never smoker Second hand tobacco smoke exposure: No Do you dip or chew tobacco?: No Do you vape?: No Living arrangement: At home Marital Status: Living Condition: With family Support Person: Yes Relationship: Home Mobility Equipment: Wheeled walker Do you feel safe in your home environment?: Yes Suffered physical, verbal, emotional, or financial abuse?: No History of Abuse: No ETOH Use: None Substance Use: denies use Are you sexually active?: No 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 Significant pain with minor movement of the wrist. No TTP about elbow, minimal elbow pain with full flex/ext/pro/supp. SILT R/U/M/Ax Fires EPL/EDC/FPL/IO/WE/WF/Biceps/Triceps/Delt 2+ Radial pulse, brisk cap refil to all digits IMAGING: RIGHT elbow xrays: Possible radial head fracture seen in one view. RIGHT wrist radiographs: No fractures or dislocations. There is degeneration and calcification within the wrist. Assessment & Plan Assessment & Plan Assessment & Plan: 69yoF with a history of metastatic breast cancer who is on palliative care. She presents with significant pain, swelling and mild erythema about the dorsum of the wrist. There is concern for a septic wrist despite a dry tap by the emergency department. At this point I would recommend a wrist washout to ensure that if there is any infection this is completely cleared. The risk, benefits and alternatives of the procedure were discussed with the pat ient to include bleeding, infection, damage to surrounding structures, ongoing pain, ongoing swelling, need for repeat washouts and anesthesia risk such as heart attack, stroke and . Patient understood these risks and wanted move forward with the procedure. Consent was signed in the emergency department. She will go to the operating room later today. She was consented for a right wrist irrigation and debridement. PLAN: N.p.o. Right wrist irrigation debridement today Admission to internal medicine following the procedure The patient had the treatment plan explained, questions answered and seemed satisfied with the plan. There were no apparent barriers to communication. The documentation in this note may have been entered with the assistance of computer voice recognition and dictation software. Therefore, it may contain unintended errors in text, spelling, punctuation, or grammar. Trent Lopez MD Orthopedic Surgeon ?
--- NOTE | 2024-06-20 08:11 | ANESTHESIA PROCEDURE NOTE ---
Pre-Anesthesia VS, & Labs Diagnosis Surgical Diagnosis:: R septic wrist Procedure Procedure: R I&D wrist Vitals Vital Signs: Temp Pulse Resp BP Pulse Ox O2 Flow Rate 37.0 C 79 16 167/84 H 94 2 06/20/24 04:52 06/20/24 04:52 06/20/24 04:52 06/20/24 03:51 06/20/24 07:48 06/20/24 04:52 NPO NPO: >8 hours Is Patient ?: No Lab Results Current Lab Results: Laboratory Tests 06/19/24 17:38: WBC 8.5, RBC 4.12 L, Hgb 12.5, Hct 39.3, MCV 95.4, MCH 30.3, M CHC 31.8 L, RDW 14.7, Plt Count 200, MPV 10.9 H, Neut # (Auto) 5.8, Lymph # (Auto) 1.1 L, [place]hin # (Auto) 1.5 H, Eos # (Auto) 0.1, Baso # (Auto) 0.0, Absolute Nucleated RBC 0.00, Band Neuts % (Manual) Not Reportable, Abnorm Lymph % (Manual) Not Reportable, Nucleated RBC % 0.0, Neutrophils # (Manual) Not Reportable, Lymphocytes # (Manual) Not Reportable, Monocytes # (Manual) Not Reportable, Eosinophils # (Manual) Not Reportable, Basophils # (Manual) Not Reportable, Differential Comment MANUAL=AUTO DIFF, Platelet Estimate NORMAL (130-450,000), Platelet Morphology 1+ GIANT PLATELETS, RBC Morph Micro Appear NORMAL APPEARANCE, ESR 70 H, Sodium 139, Potassium 4.0, Chloride 105, Carbon Dioxide 26, Anion Gap 8.0, BUN 16, Creatinine 0.7, Estimated GFR (MDRD) 83 L, G lucose 105 H, Uric Acid 3.0, Calcium 9.0, Total Bilirubin 0.7, AST 21, ALT 8 L, Alkaline Phosphatase 67, C-Reactive Protein 12.5 H, Total Protein 7.4, Albumin 3.6, Globulin 3.8, Albumin/Globulin Ratio 0.9 L Lab results reviewed: Yes 06/19/24 17:38 06/19/24 17:38 Meds/Allgy Home Medications Ambulatory Orders Medication Instructions Recorded Confirmed dulaglutide 0.75 mg/0.5 mL 0.75 mg SQ UD 11/10/21 05/16/24 subcutaneous pen injector (Trulicity) loperamide 2 mg capsule 2 mg PO ONCE PRN Diarrhea 12/24/21 05/16/24 fam-trastuzumab deruxtecn-nxki 100 See Rx Instructions .Route .COMPLEX 08/03/23 05/16/24 mg intravenous solution (Enhertu) Permanent Disabled Placard 02/03/24 05/16/24 diphenoxylate-atropine 2.5 See Rx Instructions .Route QID 02/03/24 05/16/24 mg-0.025 mg tablet ondansetron 8 mg disintegrating 8 mg PO TID 02/03/24 05/16/24 tablet prochlorperazine maleate 10 mg 10 mg PO Q6H PRN nausea and 02/03/24 05/16/24 tablet (Compazine) vomiting sertraline 100 mg tablet 100 mg PO DAILY 02/03/24 05/16/24 tamoxifen 20 mg tablet 20 mg PO QDAY 02/03/24 05/16/24 levothyroxine 25 mcg tablet See Rx Instructions .Route 03/06/24 05/16/24 .COMPLEX #90 tabs rosuvastatin 20 mg tablet See Rx Instructions .Route 03/06/24 05/16/24 .COMPLEX #90 tabs sertraline 50 mg tablet 50 mg PO QDAY #90 tabs 03/09/24 05/16/24 dexamethasone 2 mg tablet 2 mg PO QDAY 03/27/24 05/16/24 metformin 500 mg tablet 500 mg PO BID #180 tabs 04/13/24 05/16/24 apixaban 2.5 mg tablet (Eliquis) 2.5 mg PO BID #60 tabs 04/20/24 05/16/24 hydromorphone 2 mg tablet 2 - 4 mg (1 - 2 x 2 mg) PO Q3H PRN 04/25/24 05/16/24 pain #100 tabs pregabalin 150 mg capsule 150 mg PO TID 05/09/24 05/16/24 celecoxib 100 mg capsule 100 mg PO BID #180 caps 05/16/24 05/16/24 carvedilol 3.125 mg tablet 3.125 mg PO BID 05/17/24 05/17/24 olanzapine 2.5 mg tablet (Zyprexa) 2.5 mg PO .qhs #30 tabs 05/17/24 05/17/24 magnesium oxide 500 mg capsule 500 mg PO QDAY low magnesium #6 05/24/24 05/24/24 caps nirmatrelvir 300 mg (150 mg 1 ea PO .COMPLEX #1 ea 06/13/24 x2)-ritonavir 100 mg tablet,dose pack (Paxlovid) Allergies Allergies Allergy/AdvReac Type Severity Reaction Status Date / Time adhesive Allergy Severe Rash Verified 06/19/24 16:53 anastrozole Allergy Dizziness Verified 06/19/24 16:53 hydroxyzine Allergy Itching Verified 06/19/24 16:53 clindamycin AdvReac Severe Nausea Verified 06/19/24 16:53 meclizine AdvReac Severe Dizziness Verified 06/19/24 16:53 silver (From Tegaderm AG AdvReac Severe Rash Verified 06/19/24 16:53 Mesh) fentanyl AdvReac Intermediate Tachycardia Verified 06/19/24 16:53 codeine AdvReac Nausea Verified 06/19/24 16:53 gabapentin AdvReac Dizziness Verified 06/19/24 16:53 lorazepam AdvReac Dizziness Verified 06/19/24 16:53 PFSH Active Problems All Active Problems COVID-19 (Acute) Secondary malignant neoplasm of bone (Acute) DVT of right axillary vein, chronic (Acute) Anorexia (Acute) Lumbar radiculopathy (Acute) Acute dehydration (Acute) Hypotension (Acute) Muscle weakness (Acute) Depression (Acute) Rash and other nonspecific skin eruption (Acute) Secondary malignant neoplasm of bone (Acute) Thrombosis due to vascular catheter (Acute) Healthcare maintenance (Acute) Ulcer of chest wall with fat layer exposed (Acute) Radiological procedure and radiotherapy as the cause of abnormal reaction of the patient, or of later complication, without mention of misadventure at the time of the procedure (Acute) Soft tissue radionecrosis (Acute) Non-pressure chronic ulcer of other part of left foot limited to breakdown of skin (Acute) Non-pressure chronic ulcer of other part of right foot with fat layer exposed (Acute) Anxiety and depression (Acute) Acute low back pain (Acute) Pressure ulcer of toe of right foot, unstageable (Acute) Pulmonary embolus, left (Acute) Arthritis of left hip (Acute) Arthritis of knee, right (Acute) Compression fracture of L2 vertebra (Acute) Type 2 diabetes mellitus with peripheral neuropathy (Acute 04/11/05) Type 2 diabetes mellitus with other skin ulcer (Acute) Non-pressure chronic ulcer of right heel and midfoot with fat layer exposed (Acute) Non-pressure chronic ulcer of other part of left foot with fat layer exposed (Acute) Chronic osteomyelitis of right foot (Acute) Onychomycosis of multiple toenails with type 2 diabetes mellitus (Acute 11/07/20) Non-alcoholic fatty liver disease (Acute 10/05/21) Asymptomatic cholelithiasis (Acute 10/05/21) Essential hypertension (Acute) Supraventricular tachycardia (Acute) Renal artery aneurysm (Chronic) Mixed hyperlipidemia (Acute 04/11/09) Hypothyroidism (Acute 03/15/21) Paroxysmal atrial flutter (Acute 09/13/23) Obstructive sleep apnea (Acute 09/27/06) Sigmoid diverticulosis (Acute 06/19/20) Seborrheic dermatitis (Acute 01/27/10) Atopic dermatitis (Acute) Allergic contact dermatitis due to adhesives (Acute 12/25/18) Major depressive disorder, recurrent episode, moderate (Acute 07/04/06) Insomnia (Chronic) Gustatory rhinitis (Acute 07/07/23) Encounter for chemotherapy management (Acute) Adenocarcinoma of left breast (Acute) HER2-positive carcinoma of left breast (Acute) Adenocarcinoma of left breast metastatic to liver (Acute) Breast cancer metastasized to pelvis (Acute) History of bisphosphonate therapy (Acute) Chemotherapy-induced neuropathy (Acute) Breast cancer, left (Acute) Metastatic breast cancer (Acute) Immunocompromised state due to drug therapy (Chronic) Chemotherapy induced diarrhea (Acute) Medical History Medical History Pain in throat Right rotator cuff tear Neutropenic fever UTI (urinary tract infection) Left leg DVT 01/2020 w/ right THR Epistaxis, recurrent (06/02/23) Community acquired pneumonia (06/12/20) Acute COVID-19 (06/16/23) Surgical History Surgical History H/O kyphoplasty 10/2023, L2 compression fracture History of total left knee replacement 04/2023 History of insertion of central venous access port 12/2021, right IJ History of liver biopsy 11/2021, metastatic breast cancer H/O skin graft 02/2020, 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 S/P total right hip arthroplasty 01/2020 H/O mastectomy 10/2018, Bilateral, modified radical on left + simple on right (no malignancy) H/O chest tube placement 2018, following thoroscopy for lung lesions, needed for bleeding w/ procedure History of insertion of central venous access port 06/2018 w/ revision in 07/2018, removed in 09/2018 due to extrusion Lumbar canal stenosis 2016, decompression surgery H/O colonoscopy 10/2007, normal S/P lumbar laminectomy 1994, L4-5 w/ spinal cord injury H/O varicose vein stripping 1993, bilateral H/O tubal ligation 05/1992, S/P dilatation and curettage 1988, for miscarriage Hx of tonsillectomy Family History Family History Father Dementia Brain tumor Mother CAD (coronary artery disease) Thyroid disorder Diabetes Social History Social History Smoking Status: Never smoker Second hand tobacco smoke exposure: No Do you dip or chew tobacco?: No Do you vape?: No Living arrangement: At home Marital Status: Living Condition: With family Support Person: Yes Relationship: Home Mobility Equipment: Wheeled walker Do you feel safe in your home environment?: Yes Suffered physical, verbal, emotional, or financial abuse?: No History of Abuse: No ETOH Use: None Substance Use: denies use Are you sexually active?: No 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[employer], 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 Service: No POLST Patient has POLST: No POLST Status: Full Code Anesthesia Exam (Expanded) Exam General: Alert, Oriented x3, Cooperative and Mild distress (R wrist pain) Dental: WNL Mouth Openin Fingerbreadth Neck Mobility: Normal Mallampati classification: III Thyromental Distance: 4-6 cm Respiratory: Lungs clear, Normal breath sounds, No respiratory distress and Other (port at L chest, accessed) Cardiovascular: Regular rate (hx aflutter) Neurological: Normal speech Mental/Cognitive Status: Normal for patient Cognitive Status: Within normal limits Plan Plan Anesthesia Type: General Consent for Procedure(s) Verified and Reviewed: Yes Code Status: Attempt Resuscitation ASA Classification ASA classification: 3-Severe systemic disease Is this case an emergency?: Yes
--- NOTE | 2024-06-20 09:33 | HISTORY & PHYSICAL EXAMINATION ---
Chief Complaint Chief Complaint Chief Complaint: Right elbow pain History of Present Illness Admitted From Admitted From:: Home History Obtained From Records Reviewed: EMR History obtained from: Patient Exam Limitations: None History of Present Illness HPI Comment/Other: Patient is a 69 year old patient 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 She said she woke up on Tuesday and had some pain in her right elbow. She found that it spread down her right arm all the way to her wrist over the next few days. She describes the pain as sharp, and radiating downwards. She denies any fevers or chills. She has been fatigued at home. She has many abrasions noted on her upper extremities; she said it's from itching due to side effects of chemotherapy. 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 She also has a hammer toe that was infected with MRSA previously. She has no pain or swelling in any other joints. After her washout, the pain in the elbow improved. In the ER, her white count was within normal limits at 8.5. BMP was largely unremarkable. CRP was elevated at 12.5. Of note, she tested positive for COVID-19 on 06/13/2024. Elbow x-ray shows minimally displaced radial head irregularity suspicious for nondisplaced fracture. Wrist x-ray shows soft tissue swelling. Venous duplex shows no DVT. Orthopedic surgery was consulted. Initially it was just for the elbow, and they were advised to place a splint. They examined the patient's wrist, there were concerns for septic arthritis. Patient was taken for a I&D of the abscess of the wrist. Purulence was noted in the joint. Joint was washed out, patient was started on IV vancomycin and cefepime, admitted for septic arthritis. Meds/Allgy Home Medications Ambulatory Orders Medication Instructions Recorded Confirmed dulaglutide 0.75 mg/0.5 mL 0.75 mg SQ UD 11/10/21 05/16/24 subcutaneous pen injector ([facility]) loperamide 2 mg capsule 2 mg PO ONCE PRN Diarrhea 12/24/21 05/16/24 fam-trastuzumab deruxtecn-nxki 100 See Rx Instructions .Route .COMPLEX 08/03/23 05/16/24 mg intravenous solution ([facility]) Permanent Disabled Placard 02/03/24 05/16/24 diphenoxylate-atropine 2.5 See Rx Instructions .Route QID 02/03/24 05/16/24 mg-0.025 mg tablet ondansetron 8 mg disintegrating 8 mg PO TID 02/03/24 05/16/24 tablet prochlorperazine maleate 10 mg 10 mg PO Q6H PRN nausea and 02/03/24 05/16/24 tablet (Compazine) vomiting sertraline 100 mg tablet 100 mg PO DAILY 02/03/24 05/16/24 tamoxifen 20 mg tablet 20 mg PO QDAY 02/03/24 05/16/24 levothyroxine 25 mcg tablet See Rx Instructions .Route 03/06/24 05/16/24 .COMPLEX #90 tabs rosuvastatin 20 mg tablet See Rx Instructions .Route 03/06/24 05/16/24 .COMPLEX #90 tabs sertraline 50 mg tablet 50 mg PO QDAY #90 tabs 03/09/24 05/16/24 dexamethasone 2 mg tablet 2 mg PO QDAY 03/27/24 05/16/24 metformin 500 mg tablet 500 mg PO BID #180 tabs 04/13/24 05/16/24 apixaban 2.5 mg tablet (Eliquis) 2.5 mg PO BID #60 tabs 04/20/24 05/16/24 hydromorphone 2 mg tablet 2 - 4 mg (1 - 2 x 2 mg) PO Q3H PRN 04/25/24 05/16/24 pain #100 tabs pregabalin 150 mg capsule 150 mg PO TID 05/09/24 05/16/24 celecoxib 100 mg capsule 100 mg PO BID #180 caps 05/16/24 05/16/24 carvedilol 3.125 mg tablet 3.125 mg PO BID 05/17/24 05/17/24 olanzapine 2.5 mg tablet (Zyprexa) 2.5 mg PO .qhs #30 tabs 05/17/24 05/17/24 magnesium oxide 500 mg capsule 500 mg PO QDAY low magnesium #6 05/24/24 05/24/24 caps nirmatrelvir 300 mg (150 mg 1 ea PO .COMPLEX #1 ea 06/13/24 x2)-ritonavir 100 mg tablet,dose pack (Paxlovid) Allergies Allergies Allergy/AdvReac Type Severity Reaction Status Date / Time adhesive Allergy Severe Rash Verified 06/19/24 16:53 anastrozole Allergy Dizziness Verified 06/19/24 16:53 hydroxyzine Allergy Itching Verified 06/19/24 16:53 clindamycin AdvReac Severe Nausea Verified 06/19/24 16:53 meclizine AdvReac Severe Dizziness Verified 06/19/24 16:53 silver (From Tegaderm AG AdvReac Severe Rash Verified 06/19/24 16:53 Mesh) fentanyl AdvReac Intermediate Tachycardia Verified 06/19/24 16:53 codeine AdvReac Nausea Verified 06/19/24 16:53 gabapentin AdvReac Dizziness Verified 06/19/24 16:53 lorazepam AdvReac Dizziness Verified 06/19/24 16:53 PFSH Active Problems All Active Problems (Updated 06/20/24 @ 16:47 by Eve Biggs MD) Septic arthritis (Acute) COVID-19 (Acute) Secondary malignant neoplasm of bone (Acute) DVT of right axillary vein, chronic (Acute) Anorexia (Acute) Lumbar radiculopathy (Acute) Acute dehydration (Acute) Hypotension (Acute) Muscle weakness (Acute) Depression (Acute) Rash and other nonspecific skin eruption (Acute) Secondary malignant neoplasm of bone (Acute) Thrombosis due to vascular catheter (Acute) Healthcare maintenance (Acute) Ulcer of chest wall with fat layer exposed (Acute) Radiological procedure and radiotherapy as the cause of abnormal reaction of the patient, or of later complication, without mention of misadventure at the time of the procedure (Acute) Soft tissue radionecrosis (Acute) Non-pressure chronic ulcer of other part of left foot limited to breakdown of skin (Acute) Non-pressure chronic ulcer of other part of right foot with fat layer exposed (Acute) Anxiety and depression (Acute) Acute low back pain (Acute) Pressure ulcer of toe of right foot, unstageable (Acute) Pulmonary embolus, left (Acute) Arthritis of left hip (Acute) Arthritis of knee, right (Acute) Compression fracture of L2 vertebra (Acute) Type 2 diabetes mellitus with peripheral neuropathy (Acute 04/11/05) Type 2 diabetes mellitus with other skin ulcer (Acute) Non-pressure chronic ulcer of right heel and midfoot with fat layer exposed (Acute) Non-pressure chronic ulcer of other part of left foot with fat layer exposed (Acute) Chronic osteomyelitis of right foot (Acute) Onychomycosis of multiple toenails with type 2 diabetes mellitus (Acute 11/07/20) Non-alcoholic fatty liver disease (Acute 10/05/21) Asymptomatic cholelithiasis (Acute 10/05/21) Essential hypertension (Acute) Supraventricular tachycardia (Acute) Renal artery aneurysm (Chronic) Mixed hyperlipidemia (Acute 04/11/09) Hypothyroidism (Acute 03/15/21) Paroxysmal atrial flutter (Acute 09/13/23) Obstructive sleep apnea (Acute 09/27/06) Sigmoid diverticulosis (Acute 06/19/20) Seborrheic dermatitis (Acute 01/27/10) Atopic dermatitis (Acute) Allergic contact dermatitis due to adhesives (Acute 12/25/18) Major depressive disorder, recurrent episode, moderate (Acute 07/04/06) Insomnia (Chronic) Gustatory rhinitis (Acute 07/07/23) Encounter for chemotherapy management (Acute) Adenocarcinoma of left breast (Acute) HER2-positive carcinoma of left breast (Acute) Adenocarcinoma of left breast metastatic to liver (Acute) Breast cancer metastasized to pelvis (Acute) History of bisphosphonate therapy (Acute) Chemotherapy-induced neuropathy (Acute) Breast cancer, left (Acute) Metastatic breast cancer (Acute) Immunocompromised state due to drug therapy (Chronic) Chemotherapy induced diarrhea (Acute) Medical History Medical History Pain in throat Right rotator cuff tear Neutropenic fever UTI (urinary tract infection) Left leg DVT 01/2020 w/ right THR Epistaxis, recurrent (06/02/23) Community acquired pneumonia (06/12/20) Acute COVID-19 (06/16/23) Surgical History Surgical History H/O kyphoplasty 10/2023, L2 compression fracture History of total left knee replacement 04/2023 History of insertion of central venous access port 12/2021, right IJ History of liver biopsy 11/2021, metastatic breast cancer H/O skin graft 02/2020, 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 S/P total right hip arthroplasty 01/2020 H/O mastectomy 10/2018, Bilateral, modified radical on left + simple on right (no malignancy) H/O chest tube placement 2018, following thoroscopy for lung lesions, needed for bleeding w/ procedure History of insertion of central venous access port 06/2018 w/ revision in 07/2018, removed in 09/2018 due to extrusion Lumbar canal stenosis 2016, decompression surgery H/O colonoscopy 10/2007, normal S/P lumbar laminectomy 1994, L4-5 w/ spinal cord injury H/O varicose vein stripping 1993, bilateral H/O tubal ligation 05/1992, S/P dilatation and curettage 1988, for miscarriage Hx of tonsillectomy Family History Family History Father Dementia Brain tumor Mother CAD (coronary artery disease) Thyroid disorder Diabetes Social History Social History Smoking Status: Never smoker Second hand tobacco smoke exposure: No Do you dip or chew tobacco?: No Do you vape?: No Living arrangement: At home Marital Status: Living Condition: With family Support Person: Yes Relationship: Home Mobility Equipment: Wheeled walker Do you feel safe in your home environment?: Yes Suffered physical, verbal, emotional, or financial abuse?: No History of Abuse: No ETOH Use: None Substance Use: denies use Are you sexually active?: No 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[employer], [employer], 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 Service: No POLST Patient has POLST: No POLST Status: Full Code Review of Systems Constitutional Reports: Fatigue, Malaise, Weakness, Poor appetite and Weight loss; Denies: Fever, Chills, Diaphoresis or Night sweats Eyes Denies: Pain, Irritation, Amaurosis, Blurry vision, Floaters or Vision loss Ears, nose, mouth, and throat Denies: Ear discharge, Hearing loss, Hearing aids, Change in hearing or Throat swelling Cardiovascular Reports: swelling of feet/ankles; Denies: Irregular heart rate, chest pain, palpitations, Syncope or shortness of breath with exertion Respiratory Denies: Shortness of breath, Cough, Sputum production, Change in phlegm color or Wheezing Gastrointestinal Denies: Abdominal pain, Nausea, Vomiting, Poor appetite, Bile emesis, Heartburn, Diarrhea, Constipation or Bloating Genitourinary Denies: Painful urination, Urinary frequency, Urinary urgency or Urinary incontinence Musculoskeletal Reports: Back pain; Denies: Extremity swelling Integumentary/Breast Reports: Rash, Itching, Dryness, Pigment changes, Breast pain and Breast skin changes Neurological Reports: Headache and General weakness; Denies: Focal weakness, Weakness in extremities or Numbness in extremities Psychiatric Denies: Depression, Anxiety or Mood swings Endocrine Reports: Fatigue; Denies: Excessive urination, Excessive thirst or Polyphagia Hematologic/Lymphatic Denies: Anemia, Easy bruising, Petechiae or Easy bleeding Allergic/Immunologic Denies: Hives, Throat swelling, Tongue swelling, Facial swelling or Wheezing Prior Level of Functionality: Independent of ADLs. Uses cane occasionally. Daughter lives with her. Exam Constitutional abnormal general appearance (frail appearing), no apparent distress, average body habitus, no limitations and alert HENMT normocephalic and head/scalp atraumatic Eyes PERRL, EOMs intact bilaterally, conjunctivae normal and no scleral icterus Neck/C-Spine visual inspection normal, trachea midline and cervical spine nontender Chest inspection of chest normal and palpation of chest normal Mediport in place, no fluctuance or erythema noted Respiratory breath sounds equal bilaterally, normal respiratory effort, clear to auscultation bilaterally, no wheezes, no rales and no retractions Cardiovascular normal heart rate noted, regular rhythm noted, no gallop, no rub and no murmur Gastrointestinal abdomen normal to inspection, nondistended, normoactive bowel sounds and no hepatosplenomegaly Genitourinary no CVA tenderness Extremities normal to inspection, normal to palpation, no tenderness and full ROM Right arm in MANUEL bandage, wrapped; good sensation to touch, unable to move fingertips much Neurology no movement abnormality noted, no focal motor deficit noted, speech normal and coordination normal Psychiatry mental status grossly normal, oriented x3, thought process normal, cooperative and affect normal Skin skin color normal, no rash, no lesions, no ecchymosis noted and no wounds Conclusion/Plan Problem List (1) Septic arthritis: Plan: Patient with worsening pain and swelling of her right wrist. X-ray shows soft tissue swelling. Taken to the OR on 06/20 for washout, and I&D. Purulence expressed. Gram stain, fluid studies ordered. Continue cefepime and vancomycin at this time. Blood cultures, wound cultures ordered, pending. Orthopedic surgery consulted. Qualifiers: Septic arthritis location: wrist Septic arthritis organism: due to unspecified organism Laterality: right Qualified Code(s): M00.9 - Pyogenic arthritis, unspecified (2) COVID-19: Plan: Patient tested positive for COVID on 06/13. Largely asymptomatic at this time. Will await infection precaution protocol to assess need for isolation. (3) Pulmonary embolus, left: Plan: Continue Eliquis. (4) Type 2 diabetes mellitus with peripheral neuropathy: Plan: Patient states that she is prediabetic, and just on metformin. Will order A1c with morning labs. Hold off on low-dose sliding scale at this time. (5) Hypothyroidism: Plan: Continue levothyroxine. Qualifiers: Hypothyroidism type: unspecified Qualified Code(s): E03.9 - Hypothyroidism, unspecified (6) Paroxysmal atrial flutter: Plan: Continue Coreg, Eliquis. (7) Major depressive disorder, recurrent episode, moderate: Plan: Continue sertraline. (8) Adenocarcinoma of left breast: Plan: Invasive ductal carcinoma, stage IV, metastasis to liver, lung. Follows with Dr. Resendiz. Currently undergoing chemotherapy. Patient knows she is terminal. We did have a long discussion about her goals of care. She would like to be full code at this time. Lab Results Lab results reviewed: Yes 06/19/24 17:38 06/19/24 17:38
[2024-06-20] MEDS ORDERED: LIDOCAINE-PF 2% 10 ML AMP SUBQ ONE (10:17)
[2024-06-20] MEDS ORDERED: PROPOFOL 200 MG/20 ML VIAL IVP ONE (10:17)
[2024-06-20] MEDS ORDERED: BUPIVACAINE 0.25% PF 30 ML VIAL ONE (11:02)
[2024-06-20] MEDS ORDERED: MIDAZOLAM 2 MG/2 ML VIAL ONE (11:04)
[2024-06-20] MEDS ORDERED: fentaNYL 100 MCG/2 ML VIAL ONE (11:04)
[2024-06-20] MEDS ORDERED: VANCOMYCIN INJ 1.25 GM in SODIUM CHLORIDE 0.9% 250 ML IV SCH (11:30)
[2024-06-20] MEDS ORDERED: ceFAZolin 1 GM VIAL ONE (11:39)
[2024-06-20] MEDS ORDERED: PHENYLEPHRINE HCL 0.5 MG/5 ML AMPULE ONE (11:41)
[2024-06-20] MEDS ORDERED: DEXAMETHASONE 4 MG/ML VIAL ONE (11:44)
[2024-06-20] MEDS ORDERED: SODIUM CHLORIDE 0.9% 100 ML BAG IV ONE (11:48)
[2024-06-20] MEDS ORDERED: ePHEDrine 50 MG/ML VIAL IVP ONE (11:48)
[2024-06-20] MEDS ORDERED: ESMOLOL 100 MG/10 ML VIAL IVP ONE (11:48)
[2024-06-20] MEDS ORDERED: ATROPINE ABBOJECT 1 MG/10 ML SYRINGE IVP PRN (12:34)
[2024-06-20] MEDS ORDERED: NALOXONE 0.4 MG/ML VIAL IVP PRN (12:34)
[2024-06-20] MEDS ORDERED: MORPHINE 2 MG/ML CARPUJECT IVP PRN (12:34)
[2024-06-20] MEDS ORDERED: METOCLOPRAMIDE 10 MG/2 ML VIAL IVP PRN (12:34)
[2024-06-20] MEDS ORDERED: ePHEDrine 50 MG/ML VIAL IVP PRN (12:34)
[2024-06-20] MEDS ORDERED: ONDANSETRON 4 MG/2 ML VIAL IVP PRN (12:34)
--- NOTE | 2024-06-20 12:49 | OPERATIVE REPORT ---
Operative Report General Admit Date: 06/20/24 Procedure Data: Operation Date: 06/20/24 10:30 Proposed Procedures p I&D Abscess WRIST(Right) - Trent Lopez MD Actual Procedures p I&D Abscess WRIST(Right) - Trent Lopez MD Anesthesia Type General Case Staff Anesthesia Provider: Donell Graham Assisting Provider: Brandee Dumont Case Times Procedure Start: 06/20/24 11:54 Procedure End: 06/20/24 12:38 Time out: 06/20/24 11:53 Other Other Information/Narrative: Laterality: RIGHT Preoperative diagnosis: Wrist Septic Joint Procedure performed: RIGHT Wrist Incision and Drainage Postoperative diagnosis: Same Primary Surgeon: Trent Lopez MD Secondary Surgeon: MALIA Bryant Physician Car Refinisher was used throughout the entirety of the case. This operation could not have been safely performed (without compromising the technical results or length of the procedure) without the assistance of a skilled surgical garment inspector. A surgical garment inspector was medically necessary for room set up, patient positioning, draping, retraction, visualization, reduction, fixation and closure. They were essential for the success of the case. Anesthesia: General EBL: 5 ml Tourniquet: 49 minutes @ 250 mmHg Implants: None Indication For Surgery: Concern for septic arthritis of the right wrist joint. The risks, benefits, and alternatives were discussed. Risks include pain, bleeding, infection, damage to nearby structures and cartilage, lack of symptom relief, need for further surgery, DVT, PE, stroke, and . Written consent was obtained. Operative Findings: Purulence within the carpal radiocarpal joint Procedure in Detail: The patient was met in the pre-operative hold area. Consent was verified and operative extremity was signed. The patient then met with anesthesia and was brought back to the operating room. The patient was placed supine on the operating table. Anesthetic was administered. The extremity was then prepped and draped in the usual sterile fashion. A timeout was performed per protocol. All were in agreement and we proceeded. An incision was placed centered over the radiocarpal joint in line with the 3rd metacarpal bone. The extensor retinaculum had degenerative changes and the extensor tendons were already visible. We were able to identify EPL and EDC. THe tendons were retracted and the wrist joint capsule was distended. THis was sharply incised and purulence poured out of the joint. Culutres were obtained. The radiocarpal and intercarpal joint was then irrigated with 9L of sterile NS. We also used a currett to debride the tissue. THe majority of the tissue was viable and appeared healthy. The skin was closed with simple 3-0 Nylon sutures. A splint and sterile dressing was applied. Postoperative Plan: Admit to the floor for IV antibiotics Strict Elevation Non weight bearing of the operative extremity Nash sling provided Trent Lopez MD
[2024-06-20] MEDS ORDERED: HYDROmorphone 1 MG/ML CARPUJECT ONE ×3 (12:54→13:24)
[2024-06-20] MEDS: HYDROmorphone 0.5 MG/0.5 ML SYRINGE IVP PRN (12:59)
[2024-06-20] MEDS: ACETAMINOPHEN 1,000 MG/100 ML 1,000 MG/100 ML BAG IV ONE (13:18)
[2024-06-20] MEDS ORDERED: NON FORMULARY MED (Rosuvastatin 20 mg tablet) SCH (14:51)
[2024-06-20] MEDS ORDERED: SERTRALINE 50 MG TABLET PO SCH (14:51)
[2024-06-20] MEDS ORDERED: dexAMETHasone 4 MG TABLET PO SCH (14:51)
[2024-06-20] MEDS ORDERED: oxyCODONE 5 MG TABLET PO PRN (14:51)
[2024-06-20] MEDS: ceFAZolin (2G) 2 GM in SODIUM CHLORIDE 0.9% MINIBAG 100 ML IV ONE (15:00)
--- NOTE | 2024-06-20 15:08 | ANESTHESIA POST OP EVALUATION ---
Anesthesia Post Eval Post Anesthesia Eval Vitals: Last Vital Signs Temp 36.8 C 06/20/24 13:30 Pulse 76 06/20/24 13:30 Resp 18 06/20/24 13:30 BP 165/55 H 06/20/24 13:30 Pulse Ox 98 06/20/24 13:30 O2 Flow Rate 2 06/20/24 04:52 CV Function Including HR & BP: Stable Pain Control: Satisfactory Nausea & Vomiting: Negative Mental Status: Baseline Respiratory Status: Airway Patent Hydration Status: Satisfactory Anesthesia Complications: None
[2024-06-20] MEDS: VANCOMYCIN INJ 1 GM in SODIUM CHLORIDE 0.9% 250 ML IV SCH (15:44)
[2024-06-20] MEDS: CELECOXIB 100 MG CAPSULE PO SCH (15:44)
[2024-06-20] MEDS: NS W/20 MEQ KCL 1,000 ML IV SCH (15:45)
[2024-06-20] MEDS: CEFEPIME 2 GM VIAL IVP SCH (17:35)
[2024-06-20] MEDS: LEVOTHYROXINE 25 MCG TABLET PO SCH (17:47)
[2024-06-20] MEDS: SODIUM CHLORIDE FLUSH 0.9% 10 ML SYRINGE IVP SCH (17:48)
[2024-06-20] MEDS: PREGABALIN 100 MG CAPSULE PO SCH (17:59)
[2024-06-20] MEDS: PREGABALIN 25 MG CAPSULE PO SCH (17:59)
[2024-06-20] MEDS: LACTATED RINGERS 1,000 ML IV SCH (18:38)
[2024-06-20] MEDS: carvediloL 3.125 MG TABLET PO SCH (20:14)
[2024-06-20] MEDS: OLANZapine ODT 5 MG TABLET TL SCH (20:15)
[2024-06-20] MEDS: DOCUSATE SODIUM 100 MG CAPSULE PO SCH (20:16)
[2024-06-20] MEDS: HYDROmorphone 2 MG TABLET PO PRN (20:17)
[2024-06-20] MEDS: APIXABAN 2.5 MG TABLET PO SCH (20:18)
[2024-06-20] MEDS: ATORVASTATIN 40 MG TABLET PO SCH (20:48)
[2024-06-20] MEDS ORDERED: PREGABALIN 25 MG CAPSULE PO ONE (21:00)
[2024-06-20] MEDS ORDERED: APIXABAN 2.5 MG TABLET PO SCH (21:00)
[2024-06-20] MEDS ORDERED: PREGABALIN 100 MG CAPSULE PO ONE (21:00)
[2024-06-20] MEDS: ACETAMINOPHEN 500 MG TABLET PO SCH (22:23)
[2024-06-20] MEDS ORDERED: PREGABALIN 25 MG CAPSULE PO SCH (23:55)
[2024-06-21] MEDS ORDERED: SODIUM CHLORIDE 0.45% 0 ML IV ONE (00:37)
[2024-06-21] MEDS: PREGABALIN 100 MG CAPSULE PO ONE (00:52)
[2024-06-21] MEDS: PREGABALIN 25 MG CAPSULE PO ONE (00:53)
[2024-06-21 07:06] LABS: CALCIUM 8.7 mg/dL (8.5-10.3); CREATININE 0.6 mg/dL (0.6-1.3); POTASSIUM 4.1 mmol/L (3.5-4.5)
[2024-06-21 07:17] LABS: HCT - HEMATOCRIT 35.3 % (37.0-47.0); HGB - HEMOGLOBIN 11.3 g/dL (12.0-16.0); MEAN CORPUSCULAR HEMOGLOBIN 30.6 pg (27.0-31.0); MEAN CORPUSCULAR VOLUME 95.7 fL (81.0-99.0); RED BLOOD COUNT 3.69 10^6/uL (4.20-5.40); RED CELL DISTRIBUTION WIDTH 14.3 % (12.0-15.0); WHITE BLOOD COUNT 3.4 x10^3/uL (4.8-10.8)
[2024-06-21] MEDS ORDERED: HYDROmorphone 0.5 MG/0.5 ML SYRINGE IVP PRN (07:52)
[2024-06-21] MEDS: MAGNESIUM OXIDE 400 MG TABLET PO SCH (08:45)
[2024-06-21] MEDS: SERTRALINE 50 MG TABLET PO SCH (08:45)
[2024-06-21] MEDS: TAMOXIFEN 20 MG PO SCH (09:50)
[2024-06-21 10:16] LABS: ESTIMATED AVERAGE GLUCOSE 128 mg/dL (70-100); HEMOGLOBIN A1c% 6.1 % (4.27-6.07)
--- NOTE | 2024-06-21 12:14 | PROVIDER PROGRESS NOTE ---
Subjective Subjective Subjective: Patient states the pain in her hand has improved. She is able to move her fingertips. There is still some numbness and tingling in her fourth and fifth digits. She has had no fevers or chills. She said that she had an uncomfortable night. She is worried that the Lyrica here is different than the Lyrica she takes at home, and had her daughter bring it in. She has a past history of skin reactions, allergic reactions to medications. We spoke about the fact that she will need 14 days of IV antibiotics, as well as 7 days of oral antibiotics following that. She does not want to stay in a facility if possible for that. 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 Current Medications Current Medications Current Medications: Current Medications Generic Name Dose Route Start Last Admin Trade Name Freq PRN Reason Stop Dose Admin Acetaminophen 1,000 mg 06/20/24 22:00 06/21/24 06:38 Acetaminophen 500 Mg Tablet PO 1,000 mg TID JAY Administration Apixaban 2.5 mg 06/20/24 21:00 06/21/24 08:45 Apixaban 2.5 Mg Tablet PO 2.5 mg BID JAY Administration Carvedilol 3.125 mg 06/20/24 21:00 06/21/24 08:45 Carvedilol 3.125 Mg Tablet PO 3.125 mg BID JAY Administration Cefepime HCl 2 gm 06/20/24 16:00 06/21/24 06:38 Cefepime 2 Gm Vial IVP 2 gm Q8HR JAY Administration Celecoxib 100 mg 06/20/24 15:00 06/21/24 08:45 Celecoxib 100 Mg Capsule PO 100 mg BID JAY Administration Docusate Sodium 100 mg 06/20/24 21:00 06/21/24 08:45 Docusate Sodium 100 Mg Capsule PO 100 mg BID JAY Administration Hydromorphone HCl 2 mg 06/20/24 14:51 06/21/24 06:41 Hydromorphone 2 Mg Tablet PO 2 mg Q3H PRN Administration pain Hydromorphone HCl 0.5 mg 06/21/24 07:52 Hydromorphone 0.5 Mg/0.5 Ml Syringe IVP Q3HR PRN severe pain Vancomycin HCl 1 gm/ Sodium 250 mls @ 167 mls/hr 06/20/24 15:00 06/21/24 05:05 Chloride IV Infused Q12H JAY Infusion Levothyroxine Sodium 25 mcg 06/20/24 17:30 06/21/24 06:39 Levothyroxine 25 Mcg Tablet PO 25 mcg QDAC JAY Administration Magnesium Oxide 400 mg 06/21/24 08:00 06/21/24 08:45 Magnesium Oxide 400 Mg Tablet PO 400 mg DAILYWM JAY Administration Olanzapine 2.5 mg 06/20/24 21:00 06/20/24 20:15 Olanzapine Odt 5 Mg Tablet TL 2.5 mg HS JAY Administration Oxycodone HCl 5 mg 06/20/24 14:51 Oxycodone 5 Mg Tablet PO Q6HR PRN Severe Breakthrough pain(8-10) Tamoxifen 20mg 1 each 06/21/24 09:00 06/21/24 09:50 Tablet PO Not Given DAILY [facility] Rosuvastatin 20 Mg 1 each 06/21/24 21:00 PO QPM JAY Pregabalin 100 mg 06/20/24 18:00 06/21/24 06:39 Pregabalin 100 Mg Capsule PO 100 mg TID JAY Administration Pregabalin 50 mg 06/20/24 18:00 06/21/24 06:39 Pregabalin 25 Mg Capsule PO 50 mg TID JAY Administration Prochlorperazine Maleate 10 mg 06/20/24 14:51 Prochlorperazine 5 Mg Tablet PO Q6H PRN nausea and vomiting Sertraline HCl 150 mg 06/21/24 09:00 06/21/24 08:45 Sertraline 50 Mg Tablet PO 150 mg DAILY JAY Administration Sodium Chloride 10 ml 06/20/24 14:51 Sodium Chloride Flush 0.9% 10 Ml Syringe IVP PRN PRN NEEDED PER PROVIDER ORDERS Sodium Chloride 10 ml 06/20/24 17:00 06/21/24 08:46 Sodium Chloride Flush 0.9% 10 Ml Syringe IVP 10 ml 0100,0900,1700 JAY Administration Sterile Water 30 ml 06/20/24 17:53 06/21/24 06:39 Water For Injection,Sterile 10 Ml Vial MC 30 ml Q8HR JAY Administration Objective Vital Signs/Intake & Output Reviewed Vital Signs: Yes Vital Signs: Vital Signs x48h Temp Pulse Resp BP Pulse Ox 06/21/24 05:13 96.8 F L 59 L 20 138/74 H 95 Intake & Output: Intake & Output 06/18/24 06/19/24 06/20/24 06/21/24 23:59 23:59 23:59 23:59 Intake Total 2250 / 2250 350 / 350 Balance 2250 / 2250 350 / 350 Weight (kg) 92.079 kg Objective General Appearance: positive No acute distress and Alert; negative Anxious Eyes Bilateral: positive Normal inspection, PERRL and EOMI ENT: positive ENT inspection nml, Pharynx nml and No signs of dehydration Neck: positive Nml inspection, Thyroid nml and No JVD Respiratory: positive Chest non-tender, No respiratory distress and Breath sounds nml; negative Wheezes, Rales or Rhonchi Cardiovascular: positive Regular rate & rhythm and No murmur; negative Tachycardia, Bradycardia, Systolic murmur or Diastolic murmur Abdomen: positive Non-tender and No distention; negative Guarding, Rebound, Hepatomegaly, Splenomegaly or Mass Back: positive Nml inspection; negative CVA tenderness (R) or CVA tenderness (L) Skin: positive Color nml, No rash, Warm and Dry Extremities: positive Full ROM, Nml appearance, No pedal edema and Other (Right hand wrapped, not unwrapped. Good sensation in all fingertips. Is able to move all fingertips slightly, improved from yesterday.) Neurologic/Psychiatric: positive Oriented x3 and Mood/affect nml Lab Results 06/21/24 06:45 06/21/24 06:45 Other Labs: Lab Results x24hrs 06/21/24 06/21/24 Range/Units 06:45 00:50 WBC 3.4 L (4.8-10.8) x10^3/uL RBC 3.69 L (4.20-5.40) 10^6/uL Hgb 11.3 L (12.0-16.0) g/dL Hct 35.3 L (37.0-47.0) % MCV 95.7 (81.0-99.0) fL MCH 30.6 (27.0-31.0) pg MCHC 32.0 (32.0-36.0) g/dL RDW 14.3 (12.0-15.0) % Plt Count 180 (130-450) 10^3/uL MPV 11.0 H (7.9-10.8) fL Sodium 143 (135-145) mmol/L Potassium 4.1 (3.5-4.5) mmol/L Chloride 110 (101-111) mmol/L Carbon Dioxide 26 (21-32) mmol/L Anion Gap 7.0 (6-13) BUN 20 (6-20) mg/dL Creatinine 0.6 (0.6-1.3) mg/dL Estimated GFR (MDRD) 99 (>89) Glucose 136 H (74-104) mg/dL Estimat Average Glucose 128 H (70-100) mg/dL Hemoglobin A1c % 6.1 H (4.27-6.07) % Calcium 8.7 (8.5-10.3) mg/dL Magnesium 2.0 (1.7-2.3) mg/dL Nasal Screen MRSA (PCR) NEGATIVE (NEGATIVE) Diagnostic Imaging Diagnostic Imaging Results: positive Final report reviewed Assessment/Plan Problem List (1) Septic arthritis: Impression: Patient with worsening pain and swelling of her right wrist. X-ray shows soft tissue swelling. Taken to the OR on 06/20 for washout, and I&D. Purulence expressed. Gram stain, fluid studies ordered. Initial Gram stain shows no organisms, likely due to sterilize sample as she received IV antibiotics prior to going to the OR. Continue cefepime and vancomycin at this time. Blood cultures, wound cultures ordered, pending. As patient is immunocompromised, she will likely need 14 days of IV antibiotics. She will then need 7 additional days of oral antibiotics following this. I will reach out to her oncologist, Dr. Resendiz, to discuss her chemotherapy regimen. Orthopedic surgery consulted. Qualifiers: Laterality: right Septic arthritis location: wrist Septic arthritis organism: due to unspecified organism Qualified Code(s): M00.9 - Pyogenic arthritis, unspecified (2) COVID-19: Impression: Patient tested positive for COVID on 06/13. Largely asymptomatic at this time. Will need droplet precautions until 06/23. (3) Pulmonary embolus, left: Impression: Continue Eliquis. (4) Type 2 diabetes mellitus with peripheral neuropathy: Impression: Patient states that she is prediabetic, and just on metformin. Will order A1c with morning labs. Hold off on low-dose sliding scale at this time. (5) Hypothyroidism: Impression: Continue levothyroxine. Qualifiers: Hypothyroidism type: unspecified Qualified Code(s): E03.9 - Hypothyroidism, unspecified (6) Paroxysmal atrial flutter: Impression: Continue Coreg, Eliquis. (7) Major depressive disorder, recurrent episode, moderate: Impression: Continue sertraline. 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 Follows with Dr. Resendiz. Currently undergoing chemotherapy. Patient knows she is terminal. We did have a long discussion about her goals of care. She would like to be full code at this time. Continue p.o. Dilaudid. Continue IV Dilaudid for severe pain. Continue Lyrica.
--- NOTE | 2024-06-21 12:57 | PHARMACY PROGRESS NOTE ---
Best Possible Medication History Admit Date and Time: 06/21/24 1138 Home Medications Medication Instructions Recorded Confirmed Type dulaglutide 0.75 mg/0.5 mL 0.75 mg SQ UD 11/10/21 06/21/24 History subcutaneous pen injector (Trulicity) loperamide 2 mg capsule 2 mg PO ONCE PRN Diarrhea 12/24/21 06/21/24 History Permanent Disabled Placard 02/03/24 05/16/24 History diphenoxylate-atropine 2.5 See Rx Instructions .Route QID 02/03/24 06/21/24 History mg-0.025 mg tablet ondansetron 8 mg disintegrating 8 mg PO TID 02/03/24 06/21/24 History tablet prochlorperazine maleate 10 mg 10 mg PO Q6H PRN nausea and 02/03/24 06/21/24 History tablet (Compazine) vomiting sertraline 100 mg tablet 100 mg PO DAILY 02/03/24 06/21/24 History tamoxifen 20 mg tablet 20 mg PO QDAY 02/03/24 06/21/24 History levothyroxine 25 mcg tablet See Rx Instructions .Route 03/06/24 06/21/24 Rx .COMPLEX #90 tabs rosuvastatin 20 mg tablet See Rx Instructions .Route 03/06/24 06/21/24 Rx .COMPLEX #90 tabs sertraline 50 mg tablet 50 mg PO QDAY #90 tabs 03/09/24 06/21/24 Rx dexamethasone 2 mg tablet 2 mg PO QDAY 03/27/24 06/21/24 History metformin 500 mg tablet 500 mg PO BID #180 tabs 04/13/24 06/21/24 Rx apixaban 2.5 mg tablet (Eliquis) 2.5 mg PO BID #60 tabs 04/20/24 06/21/24 Rx hydromorphone 2 mg tablet 2 - 4 mg (1 - 2 x 2 mg) PO Q3H PRN 04/25/24 06/21/24 Rx pain #100 tabs pregabalin 150 mg capsule 150 mg PO TID 05/09/24 06/21/24 History celecoxib 100 mg capsule 100 mg PO BID #180 caps 05/16/24 06/21/24 Rx carvedilol 3.125 mg tablet 3.125 mg PO BID 05/17/24 06/21/24 History magnesium oxide 500 mg capsule 500 mg PO QDAY low magnesium #6 05/24/24 06/21/24 Rx caps olanzapine 2.5 mg tablet (Zyprexa) 2.5 mg PO QPM 06/21/24 06/21/24 History Processed by: Pharmacy Medications reviewed in ED?: No Medication History completed: Yes Secondary Source(s): Physician records, Pharmacy records, Insurance records and Previous admit records [facility] Statement: As the person ultimately responsible for medication therapy, providers are able to order a medication from an existing home medication list in [facility] via the "Reconcile Routine" prior to Confirmation of that medication by pc support specialist. Such practice is discouraged except when the physician, in their clinical judgment, deems that a medical need exists for a medication without regard to previous use.
--- NOTE | 2024-06-21 13:21 | POST OP PROGRESS NOTE ---
Subjective General Admit Date: 06/21/24 Procedure Date: 07/28/18 Post Op Days: 2154 Other Other Information/Narrative: 69F s/p RIGHT wrist I&D on 06/20/24 for suspected septic arthritis. S: Reports that her right upper extremity pain is much improved. Continues to complain of swelling in the right hand. States that her right elbow pain is minimal. Denies F/C/NS. Ortho Surgical Progress Note Problem List Problem List: 69F s/p RIGHT wrist I&D on 06/20/24 for suspected septic arthritis. Feeling much better compared to preop. WBC count has improved. No systemic symptoms. -Splint and elevation -NWB RUE -IV antibiotics -CRP on 06/22 -NPO at midnight for potential OR on 06/22/24 - Ortho will examine in the morning to determine if she will need to return to the ED Trent Lopez MD Exam Exam RIGHT wrist: Splint in place. Moderate swelling about the fingers exposed by the splint. No TTP about elbow, minimal elbow pain with full flex/ext/pro/supp. SILT R/U/M/Ax - has electrical shock sensation up the arm when sensation is checked on the thumb and middle finger Fires EPL/EDC/FPL/IO/WE/WF/Biceps/Triceps/Delt 2+ Radial pulse, brisk cap refil to all digits IMAGING: RIGHT elbow xrays: Possible radial head fracture seen in one view. RIGHT wrist radiographs: No fractures or dislocations. There is degeneration and calcification within the wrist.
[2024-06-21] MEDS ORDERED: LYRICA 100 MG PO SCH (14:00)
[2024-06-21] MEDS: PATIENT OWN CONTROLLED 1 EACH PO SCH (14:10)
[2024-06-21] MEDS: HYDROmorphone 2 MG/ML VIAL IVP PRN (14:10)
--- NOTE | 2024-06-21 18:08 | Palliative Care ---
CC HPI Chief Complaint Chief Complaint: COVID; Back pain; Met Breast CA; anxiety; History Obtained From Records Reviewed: oncology notes; previous notes; labs History obtained from: patient Exam Limitations: none History of Present Illness HPI: This is a 69-year-old woman with a diagnosis of recurrent metastatic breast cancer to the bone and liver mets. Endy Elias RN, and I are seeing her inpatient. Acute visit secondary to right hand pain and swelling. Kristie came to the ED on 06/19/2024 around 4 PM for right hand pain and swelling. C/o significant pain, tingling and burning in the elbow, shooting down her arm to wrist. They did an US and XRs thinking she had a broken bone in the elbow first, and then they started to focus on the right wrist. Hand is significantly swollen; wrapped with gauze and Coban in a splint. Staff believe something else is going on. She is in isolation due to COVID-positive from a couple weeks ago. 3 images were taken. Wrist XR showed "no displaced fracture or dislocation. Background moderate degenerative changes particularly at the base of the thumb. Chondrocalcinosis and nonacute appearing bone fragments dorsal to the carpal bones and adjacent to the ulnar styloid." Venous duplex study showed "small mild free fluid at the elbow measuring 1.4 x 0.2 cm. Small amount free fluid in the wrist measuring 1.6 x 0.7 x 2.8 cm." Elbow XR showed "Minimally displaced radial head irregularity is seen on frontal view suspicious for a nondisplaced fracture in the setting of a small joint effusion. Background mild arthrosis. Enthesopathy at the medial humeral condyle." She is still waiting to hear from orthopedics again. Kristie is extremely upset because she did not receive her pregabalin or sertra line the past 2 days since being in the hospital, she states. She has been experiencing night sweats (changed sheets TID last night), extremely cold, shakiness, and chills. Believes she is having withdrawal from the medication and waiting for the nausea to start tomorrow. She's had this happen before, so she "knows exactly what to expect." Finally given her first dose at 1 PM today. They are waiting for blood cultures to come back to make sure there is no infection in the hand. If there is, she states she'll have to be on IV antibiotics for 2 weeks and "there's no way in hell she's staying in this hospital to do that!" States "I would rather go out into the cold and first before that's going to happen!" Kristie states if something bad is going to happen and there is a minute possibility of it happening, that 1% is usually her. Kristie is extremely frustrated because she is missing a spinal procedure (ablation?) she was supposed to have today. States she's been waiting a long time to have this done. She is also going to miss her next chemo (potentially), and concerned her cancer markers are going up. This is what happened to her a couple weeks ago. States she is going to file a grievance due to the inadequacies of not having medications people take, and not speaking with the patient first about giving a substitute medication. She feels these two things are a huge deal. Also complaining about an RN butting in on a conversation she had no business commenting on. The comment was "You can leave if you want to." Kristie states she can hear people talking in the hallway about her "bitchiness," due to her acute hearing. Recently her most difficult problem has been severe back pain, starting back in October 2023 when she had GLF. She had been working with a education program specialist. Unfortunately, she had an exacerbation and was admitted to [facility] 04/10- 05/07/24 while getting worked up for discitis which was negative. Fortunately she did get a nerve block that is still holding and addressing her severe right sciatica pain. She has been receiving hydromorphone IV and is upset because it is not oral. She can currently ambulate, but still needs to pace herself as to not exacerbate her pain. She is also not happy because she is receiving IV antibiotics via Port-A-Cath. She does not want it this way. She continues to focus how things are not working for her and she is very upset at the hospital. She wants to go home ultimately. Meds/Allgy Home Medications Ambulatory Orders Medication Instructions Recorded Confirmed dulaglutide 0.75 mg/0.5 mL 0.75 mg SQ UD 11/10/21 06/21/24 subcutaneous pen injector ([facility]) loperamide 2 mg capsule 2 mg PO ONCE PRN Diarrhea 12/24/21 06/21/24 Permanent Disabled Placard 02/03/24 05/16/24 diphenoxylate-atropine 2.5 See Rx Instructions .Route QID 02/03/24 06/21/24 mg-0.025 mg tablet ondansetron 8 mg disintegrating 8 mg PO TID 02/03/24 06/21/24 tablet prochlorperazine maleate 10 mg 10 mg PO Q6H PRN nausea and 02/03/24 06/21/24 tablet (Compazine) vomiting sertraline 100 mg tablet 100 mg PO DAILY 02/03/24 06/21/24 tamoxifen 20 mg tablet 20 mg PO QDAY 02/03/24 06/21/24 levothyroxine 25 mcg tablet See Rx Instructions .Route 03/06/24 06/21/24 .COMPLEX #90 tabs rosuvastatin 20 mg tablet See Rx Instructions .Route 03/06/24 06/21/24 .COMPLEX #90 tabs sertraline 50 mg tablet 50 mg PO QDAY #90 tabs 03/09/24 06/21/24 dexamethasone 2 mg tablet 2 mg PO QDAY 03/27/24 06/21/24 metformin 500 mg tablet 500 mg PO BID #180 tabs 04/13/24 06/21/24 apixaban 2.5 mg tablet (Eliquis) 2.5 mg PO BID #60 tabs 04/20/24 06/21/24 hydromorphone 2 mg tablet 2 - 4 mg (1 - 2 x 2 mg) PO Q3H PRN 04/25/24 06/21/24 pain #100 tabs pregabalin 150 mg capsule 150 mg PO TID 05/09/24 06/21/24 celecoxib 100 mg capsule 100 mg PO BID #180 caps 05/16/24 06/21/24 carvedilol 3.125 mg tablet 3.125 mg PO BID 05/17/24 06/21/24 magnesium oxide 500 mg capsule 500 mg PO QDAY low magnesium #6 05/24/24 06/21/24 caps olanzapine 2.5 mg tablet (Zyprexa) 2.5 mg PO QPM 06/21/24 06/21/24 Allergies Allergies Allergy/AdvReac Type Severity Reaction Status Date / Time adhesive Allergy Severe Rash Verified 06/19/24 16:53 anastrozole Allergy Dizziness Verified 06/19/24 16:53 hydroxyzine Allergy Itching Verified 06/19/24 16:53 clindamycin AdvReac Severe Nausea Verified 06/19/24 16:53 meclizine AdvReac Severe Dizziness Verified 06/19/24 16:53 silver (From Tegaderm AG AdvReac Severe Rash Verified 06/19/24 16:53 Mesh) fentanyl AdvReac Intermediate Tachycardia Verified 06/19/24 16:53 codeine AdvReac Nausea Verified 06/19/24 16:53 gabapentin AdvReac Dizziness Verified 06/19/24 16:53 lorazepam AdvReac Dizziness Verified 06/19/24 16:53 Palliative Care Performance Status Performance status: Patient has had a decline in functional status, limited by weakness, neuropathy and pain. She has had some improvement since last seen, used scooter for trip, but was more active and endurance improved. Is independent in ADLs but needs to pace self. Palliative Care Discussion: Kristie is very upset with the hospital. She had called [facility], early this morning and complained about not receiving medications, being in isolation, and how frustrating all of it is. She continues to repeat all the same complaints to us as we are in the room, in person again. She was really hoping to go to her spinal procedure today. And she is extremely worried about her chemotherapy upcoming that she is going to miss it again. She does not feel she needs to be treated this way and staff are making a big deal out of nothing. Tried to make her realize people are just doing their jobs and being cautious to make sure she doesn't have a serious infection going on that could hurt her more in the long run. She is more calm by the time we leave since she received hydromorphone right before we arrived. Impression Impression: This is a 69-year-old woman with recurrent metastatic breast cancer with mets to liver and bone, currently receiving Enhertu. Kristie is currently inpatient at [facility] for right hand swelling and pain. Awaiting results with final diagnosis. She missed her spinal procedure today and is quite upset she did not receive pregabalin or sertraline for a couple days. Wants to file a grievance. Palliative care continues to provide oversight for pain and symptom management, counseling for adjustment illness and anticipatory guidance. Vitals Vital Signs 3 06/19/24 16:47 06/20/24 00:05 06/20/24 00:47 06/20/24 02:48 06/20/24 03:51 06/20/24 04:52 06/20/24 07:48 06/20/24 10:00 06/20/24 12:45 06/20/24 12:50 06/20/24 12:55 06/20/24 13:00 06/20/24 13:05 06/20/24 13:10 06/20/24 13:15 06/20/24 13:30 06/20/24 14:30 06/20/24 15:00 06/20/24 17:00 06/20/24 19:00 06/20/24 22:35 06/21/24 01:00 06/21/24 05:13 06/21/24 14:35 06/21/24 17:14 06/22/24 01:17 06/22/24 09:36 06/22/24 14:02 Height 5 ft 6 in 5 ft 6 in Weight 92.079 kg 92.079 kg BMI 32.7 BP 168/64 H 167/84 H 172/61 H 185/78 H 180/90 H 173/101 H 198/82 H 1 66/103 H 196/85 H 189/87 H 165/55 H 133/64 H 133/62 H 140/69 H 156/97 H 145/80 H 138/74 H 138/77 H 162/68 H 111/51 L 117/55 L Respiration 22 20 16 16 16 16 16 20 18 20 16 18 16 16 18 16 16 16 20 18 20 18 16 18 18 Pulse 94 85 93 94 78 79 72 84 87 84 83 86 89 84 76 81 66 63 7 4 74 59 L 76 64 68 79 Temp 36.9 C 36.9 C 37.0 C 36.8 C 36.3 C L 36.3 C L 36.6 C 36. 0 C L 36.3 C L 36.1 C L 36.0 C L 36.4 C L 36.6 C 36.3 C L 36.2 C L Temp Source Skin Temporal Artery Scan Tympanic Temporal Artery S can Temporal Artery Scan Oral Temporal Artery Scan Temporal Artery Scan Temporal Artery Scan Skin Temporal Artery Scan Temporal Artery Scan Skin Temporal Art ángel Scan Pulse Oximetry 96 94 97 94 95 94 94 93 100 100 100 94 92 95 91 L 98 98 92 92 95 93 95 95 97 96 95 [facility] Active Problems All Active Problems (Updated 06/22/24 @ 15:19 by Luca Brown [employer]) Withdrawal syndrome (Acute) Cellulitis (Acute) Septic arthritis (Acute) COVID-19 (Acute) Secondary malignant neoplasm of bone (Acute) DVT of right axillary vein, chronic (Acute) Anorexia (Acute) Lumbar radiculopathy (Acute) Acute dehydration (Acute) Hypotension (Acute) Muscle weakness (Acute) Depression (Acute) Rash and other nonspecific skin eruption (Acute) Secondary malignant neoplasm of bone (Acute) Thrombosis due to vascular catheter (Acute) Healthcare maintenance (Acute) Ulcer of chest wall with fat layer exposed (Acute) Radiological procedure and radiotherapy as the cause of abnormal reaction of the patient, or of later complication, without mention of misadventure at the time of the procedure (Acute) Soft tissue radionecrosis (Acute) Non-pressure chronic ulcer of other part of left foot limited to breakdown of skin (Acute) Non-pressure chronic ulcer of other part of right foot with fat layer exposed (Acute) Anxiety and depression (Acute) Acute low back pain (Acute) Pressure ulcer of toe of right foot, unstageable (Acute) Pulmonary embolus, left (Acute) Arthritis of left hip (Acute) Arthritis of knee, right (Acute) Compression fracture of L2 vertebra (Acute) Type 2 diabetes mellitus with peripheral neuropathy (Acute 04/11/05) Type 2 diabetes mellitus with other skin ulcer (Acute) Non-pressure chronic ulcer of right heel and midfoot with fat layer exposed (Acute) Non-pressure chronic ulcer of other part of left foot with fat layer exposed (Acute) Chronic osteomyelitis of right foot (Acute) Onychomycosis of multiple toenails with type 2 diabetes mellitus (Acute ) Non-alcoholic fatty liver disease (Acute 10/05/21) Asymptomatic cholelithiasis (Acute 10/05/21) Essential hypertension (Acute) Supraventricular tachycardia (Acute) Renal artery aneurysm (Chronic) Mixed hyperlipidemia (Acute 04/11/09) Hypothyroidism (Acute 03/15/21) Paroxysmal atrial flutter (Acute 09/13/23) Obstructive sleep apnea (Acute 09/27/06) Sigmoid diverticulosis (Acute 06/19/20) Seborrheic dermatitis (Acute 01/27/10) Atopic dermatitis (Acute) Allergic contact dermatitis due to adhesives (Acute 12/25/18) Major depressive disorder, recurrent episode, moderate (Acute 07/04/06) Insomnia (Chronic) Gustatory rhinitis (Acute 07/07/23) Encounter for chemotherapy management (Acute) Adenocarcinoma of left breast (Acute) HER2-positive carcinoma of left breast (Acute) Adenocarcinoma of left breast metastatic to liver (Acute) Breast cancer metastasized to pelvis (Acute) History of bisphosphonate therapy (Acute) Chemotherapy-induced neuropathy (Acute) Breast cancer, left (Acute) Metastatic breast cancer (Acute) Immunocompromised state due to drug therapy (Chronic) Chemotherapy induced diarrhea (Acute) Medical History Medical History Pain in throat Right rotator cuff tear Neutropenic fever UTI (urinary tract infection) Left leg DVT 01/2020 w/ right THR Epistaxis, recurrent (06/02/23) Community acquired pneumonia (06/12/20) Acute COVID-19 (06/16/23) Surgical History Surgical History H/O kyphoplasty 10/2023, L2 compression fracture History of total left knee replacement 04/2023 History of insertion of central venous access port 12/2021, right IJ History of liver biopsy 11/2021, metastatic breast cancer H/O skin graft 02/2020, 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 S/P total right hip arthroplasty 01/2020 H/O mastectomy 10/2018, Bilateral, modified radical on left + simple on right (no malignancy) H/O chest tube placement 2018, following thoroscopy for lung lesions, needed for bleeding w/ procedure History of insertion of central venous access port 06/2018 w/ revision in 07/2018, removed in 09/2018 due to extrusion Lumbar canal stenosis 2016, decompression surgery H/O colonoscopy 10/2007, normal S/P lumbar laminectomy 1994, L4-5 w/ spinal cord injury H/O varicose vein stripping 1993, bilateral H/O tubal ligation 05/1992, S/P dilatation and curettage 1988, for miscarriage Hx of tonsillectomy Family History Family History Father Dementia Brain tumor Mother CAD (coronary artery disease) Thyroid disorder Diabetes Social History Social History Smoking Status: Never smoker Second hand tobacco smoke exposure: No Do you dip or chew tobacco?: No Do you vape?: No Living arrangement: At home Marital Status: Living Condition: With family Support Person: Yes Relationship: Level: Independent Home Mobility Equipment: Cane Do you feel safe in your home environment?: Yes Suffered physical, verbal, emotional, or financial abuse?: No History of Abuse: No ETOH Use: None Substance Use: denies use Are you sexually active?: No 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[email or web address], 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 Service: No POLST Patient has POLST: No POLST Status: Full Code Review of Systems Status of ROS: 10 or more systems reviewed and unremarkable except as noted in history and below Constitutional Reports: Chills, Weakness, Night sweats and Change in sleep pattern Cardiovascular Reports: shortness of breath with exertion Respiratory Reports: Shortness of breath Musculoskeletal Reports: Back pain, Extremity pain (Right arm and hand), Extremity swelling, Madina nt pain and Muscle weakness Neurological Reports: Weakness in extremities and Numbness in extremities Psychiatric Reports: Depression, Mood swings, Change in sleep pattern and Irritability Exam Constitutional normal general appearance (Disheveled in bed), no apparent distress, average body habitus, no limitations and alert HENMT normocephalic and head/scalp atraumatic Eyes PERRL, EOMs intact bilaterally, conjunctivae normal and no scleral icterus Neck/C-Spine visual inspection normal and trachea midline Chest Port-A-Cath in place Extremities normal to palpation Right arm in MANUEL bandage, wrapped; good sensation to touch, unable to move fingertips much; swollen. Left knee, large incisional surgical scar; s/p knee replacement with minor scabbing proximal and distal points; post healing Neurology no movement abnormality noted, no focal motor deficit noted, speech normal and coordination normal Uses walker for ambulation Psychiatry mental status grossly normal, oriented x3, thought process normal, cooperative and affect normal Irritable, angry and vocal about complaints Skin skin color normal, no lesions, no ecchymosis noted, no wounds, no jaundice and no mottling Assessment & Plan Assessment & Plan (1) Withdrawal syndrome: Code(s): F19.939 - Other psychoactive substance use, unspecified with withdrawal, unspecified Plan: Having chills, night sweats, irritability, anxiety, depression, mood swings all due to not having pregabalin and sertraline for the first 2 days. Very upset that she had to bring it from home in order to take it. Staff said they finally had the medication, but then the pharmacy did not have it in the system yet, so she could not take it. If she had known that, she states she would have taken her own before she handed off to the staff. Finally received the medication late Tuesday evening. She does not realize is not that her first dosing was on around 1 PM. Mood should improve overall. Qualifiers: Substance type: other psychostimulant Qualified Code(s): F15.93 - Other stimulant use, unspecified with withdrawal (2) Septic arthritis: Code(s): M00.9 - Pyogenic arthritis, unspecified Plan: Currently receiving IV antibiotics vancomycin and cefepime. Unclear how many days she is going to have to receive them. Awaiting blood cultures to see if any changes are necessary. Qualifiers: Laterality: right Septic arthritis location: wrist Septic arthritis organism: due to unspecified organism Qualified Code(s): M00.9 - Pyogenic arthritis, unspecified (3) Cellulitis: Code(s): L03.90 - Cellulitis, unspecified Plan: Right hand is swollen and in a temporary splint wrapped with gauze and Coban. Appears to be cellulitis just by observation. Awaiting final diagnosis from laboratory and blood cultures. Currently on IV antibiotics. Continue to monitor for changes. Qualifiers: Laterality: right Site of cellulitis: extremity Site of cellulitis of extremity: upper extremity Qualified Code(s): L03.113 - Cellulitis of right upper limb (4) Lumbar radiculopathy: Code(s): M54.16 - Radiculopathy, lumbar region Plan: Continues to use hydromorphone 2 mg every 3 hours PRN. Continue current plan of care. (5) COVID-19: Code(s): U07.1 - COVID-19 Plan: Currently in isolation; had already done Paxlovid at the very beginning of all of this. Does not believe she is COVID-positive still. Will remain in isolation until she discharges. Plan Hoping to receive discharge instructions that she can go home by the weekend. Does not think she has a major infection. Continues on IV antibiotics per the hospitalist orders at this time. Requested she be patient and compliant with the hospital staff in order to get home sooner than later. Medications: Discontinued nirmatrelvir-ritonavir 300 mg (150 mg x 2)-100 mg Discontinued Reason: Completed therapy One dose pack; one dose BID x 5 days 1 ea 0RF
[2024-06-22 05:50] LABS: HCT - HEMATOCRIT 31.6 % (37.0-47.0); HGB - HEMOGLOBIN 9.8 g/dL (12.0-16.0); MEAN CORPUSCULAR HEMOGLOBIN 30.2 pg (27.0-31.0); MEAN CORPUSCULAR VOLUME 97.2 fL (81.0-99.0); MEAN PLATELET VOLUME 11.1 fL (7.9-10.8); RED BLOOD COUNT 3.25 10^6/uL (4.20-5.40); RED CELL DISTRIBUTION WIDTH 14.4 % (12.0-15.0); WHITE BLOOD COUNT 4.4 x10^3/uL (4.8-10.8)
[2024-06-22 06:03] LABS: MAGNESIUM 1.9 mg/dL (1.7-2.3)
[2024-06-22 06:08] LABS: CALCIUM 8.4 mg/dL (8.5-10.3); CREATININE 0.7 mg/dL (0.6-1.3); CRP - C-REACTIVE PROTEIN 3.1 mg/dL (<0.5); POTASSIUM 3.8 mmol/L (3.5-4.5)
--- NOTE | 2024-06-22 08:04 | POST OP PROGRESS NOTE ---
Subjective General Admit Date: 06/21/24 Procedure Date: 07/28/18 Post Op Days: 2155 Other Other Information/Narrative: 69F s/p RIGHT wrist I&D on 06/20/24 for suspected septic arthritis. S: Reports that her right upper extremity pain is much improved. Continues to complain of swelling in the right hand. States that her right elbow pain is minimal. Denies F/C/NS. Ortho Surgical Progress Note Problem List Problem List: 69F s/p RIGHT wrist I&D on 06/20/24 for suspected septic arthritis. Feeling much better compared to preop. WBC count and CRP has improved. No systemic symptoms. -Splint and elevation -NWB RUE -IV antibiotics -Please reconsult Ortho if there are any further concerns Trent Lopez MD Exam Exam RIGHT wrist: Splint in place this was taken down. Incision is C/D/I. Mild swelling about the fingers No TTP about elbow, minimal elbow pain with full flex/ext/pro/supp. SILT R/U/M/Ax periodically has electrical shock sensation up the arm when sensation is checked on the thumb and middle finger Fires EPL/EDC/FPL/IO/WE/WF/Biceps/Triceps/Delt 2+ Radial pulse, brisk cap refil to all digits IMAGING: RIGHT elbow xrays: Possible radial head fracture seen in one view. RIGHT wrist radiographs: No fractures or dislocations. There is degeneration and calcification within the wrist.
--- NOTE | 2024-06-22 11:42 | PROVIDER PROGRESS NOTE ---
Subjective Subjective Subjective: Patient states the pain in her hand has improved. She is able to move her fingertips. She has had no fevers or chills. She said that she had an uncomfortable night. She is very worried about the fact that she will have to miss chemotherapy sessions because of this active infection. We spoke about the fact that she will need 14 days of IV antibiotics, as well as 7 days of oral antibiotics following that. She does not want to stay in a facility if possible for that. 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 Current Medications Current Medications Current Medications: Current Medications Generic Name Dose Route Start Last Admin Trade Name Freq PRN Reason Stop Dose Admin Acetaminophen 1,000 mg 06/20/24 22:00 06/22/24 05:47 Acetaminophen 500 Mg Tablet PO 1,000 mg TID JAY Administration Apixaban 2.5 mg 06/20/24 21:00 06/22/24 08:40 Apixaban 2.5 Mg Tablet PO 2.5 mg BID JAY Administration Carvedilol 3.125 mg 06/20/24 21:00 06/22/24 08:40 Carvedilol 3.125 Mg Tablet PO 3.125 mg BID JAY Administration Cefepime HCl 2 gm 06/20/24 16:00 06/22/24 06:03 Cefepime 2 Gm Vial IVP 2 gm Q8HR JAY Administration Celecoxib 100 mg 06/20/24 15:00 06/22/24 08:40 Celecoxib 100 Mg Capsule PO 100 mg BID JAY Administration Docusate Sodium 100 mg 06/20/24 21:00 06/22/24 08:40 Docusate Sodium 100 Mg Capsule PO 100 mg BID JAY Administration Hydromorphone HCl 2 mg 06/20/24 14:51 06/21/24 06:41 Hydromorphone 2 Mg Tablet PO 2 mg Q3H PRN Administration pain Hydromorphone HCl 2 mg 06/21/24 13:56 06/22/24 05:46 Hydromorphone 2 Mg/Ml Vial IVP 2 mg Q4HR PRN Administration severe pain Vancomycin HCl 1 gm/ Sodium 250 mls @ 167 mls/hr 06/20/24 15:00 06/22/24 05:15 Chloride IV Infused Q12H JAY Infusion Levothyroxine Sodium 25 mcg 06/20/24 17:30 06/22/24 06:20 Levothyroxine 25 Mcg Tablet PO 25 mcg QDAC JAY Administration Magnesium Oxide 400 mg 06/21/24 08:00 06/22/24 08:39 Magnesium Oxide 400 Mg Tablet PO 400 mg DAILYWM JAY Administration Olanzapine 2.5 mg 06/20/24 21:00 06/21/24 21:49 Olanzapine Odt 5 Mg Tablet TL 2.5 mg HS JAY Administration Oxycodone HCl 5 mg 06/20/24 14:51 Oxycodone 5 Mg Tablet PO Q6HR PRN Severe Breakthrough pain(8-10) Tamoxifen 20mg 1 each 06/21/24 09:00 06/22/24 08:41 Tablet PO Not Given DAILY JAY Rosuvastatin 20 Mg 1 each 06/21/24 21:00 06/21/24 21:36 PO 1 each QPM JAY Administration Patient Own Medication 1 each 06/21/24 14:00 06/22/24 05:59 Patient Own Controlled 1 Each PO 1 each TID JAY Administration Prochlorperazine Maleate 10 mg 06/20/24 14:51 Prochlorperazine 5 Mg Tablet PO Q6H PRN nausea and vomiting Sertraline HCl 150 mg 06/21/24 09:00 06/22/24 08:40 Sertraline 50 Mg Tablet PO 150 mg DAILY JAY Administration Sodium Chloride 10 ml 06/20/24 14:51 Sodium Chloride Flush 0.9% 10 Ml Syringe IVP PRN PRN NEEDED PER PROVIDER ORDERS Sodium Chloride 10 ml 06/20/24 17:00 06/22/24 08:41 Sodium Chloride Flush 0.9% 10 Ml Syringe IVP 10 ml 0100,0900,1700 JAY Administration Sterile Water 30 ml 06/20/24 17:53 06/22/24 06:03 Water For Injection,Sterile 10 Ml Vial MC 30 ml Q8HR JAY Administration Objective Vital Signs/Intake & Output Reviewed Vital Signs: Yes Vital Signs: Vital Signs x48h Temp Pulse Resp BP Pulse Ox 06/22/24 09:36 97.2 F L 79 18 117/55 L 95 Intake & Output: Intake & Output 06/19/24 06/20/24 06/21/24 06/22/24 23:59 23:59 23:59 23:59 Intake Total 2250 / 2250 1920 / 1920 730 / 730 Balance 2250 / 2250 1919 / 1919 / 0 Weight (kg) 92.079 kg 92.079 kg Objective General Appearance: positive No acute distress and Alert; negative Anxious Eyes Bilateral: positive Normal inspection, PERRL and EOMI ENT: positive ENT inspection nml, Pharynx nml and No signs of dehydration Neck: positive Nml inspection, Thyroid nml and No JVD Respiratory: positive Chest non-tender, No respiratory distress and Breath sounds nml; negative Wheezes, Rales or Rhonchi Cardiovascular: positive Regular rate & rhythm and No murmur; negative Tachycardia, Bradycardia, Systolic murmur or Diastolic murmur Abdomen: positive Non-tender and No distention; negative Guarding, Rebound, Hepatomegaly, Splenomegaly or Mass Back: positive Nml inspection; negative CVA tenderness (R) or CVA tenderness (L) Skin: positive Color nml, No rash, Warm and Dry Extremities: positive Nml appearance, No pedal edema and Other (Right hand wrapped, not unwrapped. Good sensation in all fingertips. Is able to move all fingertips slightly, improved from yesterday.) Neurologic/Psychiatric: positive Oriented x3 and Mood/affect nml Lab Results 06/22/24 05:25 06/22/24 05:25 Other Labs: Lab Results x24hrs 06/22/24 Range/Units 05:25 WBC 4.4 L (4.8-10.8) x10^3/uL RBC 3.25 L (4.20-5.40) 10^6/uL Hgb 9.8 L (12.0-16.0) g/dL Hct 31.6 L (37.0-47.0) % MCV 97.2 (81.0-99.0) fL MCH 30.2 (27.0-31.0) pg MCHC 31.0 L (32.0-36.0) g/dL RDW 14.4 (12.0-15.0) % Plt Count 172 (130-450) 10^3/uL MPV 11.1 H (7.9-10.8) fL ESR 70 H (0-30) mm/Hr Sodium 143 (135-145) mmol/L Potassium 3.8 (3.5-4.5) mmol/L Chloride 113 H (101-111) mmol/L Carbon Dioxide 26 (21-32) mmol/L Anion Gap 4.0 L (6-13) BUN 22 H (6-20) mg/dL Creatinine 0.7 (0.6-1.3) mg/dL Estimated GFR (MDRD) 83 L (>89) Glucose 85 (74-104) mg/dL Calcium 8.4 L (8.5-10.3) mg/dL Magnesium 1.9 (1.7-2.3) mg/dL C-Reactive Protein 3.1 H (<0.5) mg/dL Diagnostic Imaging Diagnostic Imaging Results: positive Final report reviewed Assessment/Plan Problem List (1) Septic arthritis: Impression: Patient with worsening pain and swelling of her right wrist. X-ray shows soft tissue swelling. Taken to the OR on 06/20 for washout, and I&D. Purulence expressed. Gram stain, fluid studies ordered. Initial Gram stain shows no organisms, likely due to sterilized sample as she received IV antibiotics prior to going to the OR. Continue cefepime and vancomycin at this time. Blood cultures, wound cultures ordered, pending. As patient is immunocompromised, she will likely need 14 days of IV antibiotics. She will then need 7 additional days of oral antibiotics following this. Orthopedic surgery following. Qualifiers: Laterality: right Septic arthritis location: wrist Septic arthritis organism: due to unspecified organism Qualified Code(s): M00.9 - Pyogenic arthritis, unspecified (2) COVID-19: Impression: Patient tested positive for COVID on 06/13. Largely asymptomatic at this time. Will need droplet precautions until 06/23. (3) Pulmonary embolus, left: Impression: Continue Eliquis. (4) Type 2 diabetes mellitus with peripheral neuropathy: Impression: Patient states that she is prediabetic, and just on metformin. A1c of 6.1%. Hold off on low-dose sliding scale at this time. (5) Hypothyroidism: Impression: Continue levothyroxine. Qualifiers: Hypothyroidism type: unspecified Qualified Code(s): E03.9 - Hypothyroidism, unspecified (6) Paroxysmal atrial flutter: Impression: Continue Coreg, Eliquis. (7) Major depressive disorder, recurrent episode, moderate: Impression: Continue sertraline. 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 Follows with Dr. Resendiz. Currently undergoing chemotherapy. Patient knows she is terminal. We did have a long discussion about her goals of care. She would like to be full code at this time. Continue p.o. Dilaudid. Continue IV Dilaudid for severe pain. Continue Lyrica.
[2024-06-22 16:03] LABS: VANCOMYCIN,TROUGH 16.5 ug/mL
[2024-06-23 06:25] LABS: HCT - HEMATOCRIT 32.6 % (37.0-47.0); HGB - HEMOGLOBIN 10.1 g/dL (12.0-16.0); MEAN CORPUSCULAR HEMOGLOBIN 30.6 pg (27.0-31.0); MEAN CORPUSCULAR VOLUME 98.8 fL (81.0-99.0); MEAN PLATELET VOLUME 11.3 fL (7.9-10.8); RED BLOOD COUNT 3.3 10^6/uL (4.20-5.40); RED CELL DISTRIBUTION WIDTH 14.5 % (12.0-15.0); WHITE BLOOD COUNT 3.7 x10^3/uL (4.8-10.8)
[2024-06-23 06:37] LABS: MAGNESIUM 1.8 mg/dL (1.7-2.3)
[2024-06-23 06:43] LABS: CALCIUM 8.8 mg/dL (8.5-10.3); CREATININE 0.6 mg/dL (0.6-1.3); POTASSIUM 3.7 mmol/L (3.5-4.5)
[2024-06-23] MEDS: MULTIVITAMIN W/MINERALS TABLET PO SCH (08:57)
--- NOTE | 2024-06-23 09:30 | PROVIDER PROGRESS NOTE ---
Subjective Subjective Subjective: Patient states the pain in her hand has improved. She is able to move her fingertips. She has had no fevers or chills. She said that she had an uncomfortable night. She has new pain in her right shoulder. She is very worried about the fact that she will have to miss chemotherapy sessions because of this active infection. We spoke about the fact that she will need 14 days of IV antibiotics, as well as 7 days of oral antibiotics following that. [place] [facility] [place] and [place] stated that that she would not get chemotherapy as she is being treated for an active infection. Her CA 15-3 antigen is stable, and downtrending. She did feel reassured when we talked about this. Current Medications Current Medications Current Medications: Current Medications Generic Name Dose Route Start Last Admin Trade Name Freq PRN Reason Stop Dose Admin Acetaminophen 1,000 mg 06/20/24 22:00 06/23/24 05:30 Acetaminophen 500 Mg Tablet PO 1,000 mg TID JAY Administration Apixaban 2.5 mg 06/20/24 21:00 06/23/24 08:59 Apixaban 2.5 Mg Tablet PO 2.5 mg BID JAY Administration Cefepime HCl 2 gm 06/20/24 16:00 06/23/24 05:33 Cefepime 2 Gm Vial IVP 2 gm Q8HR JAY Administration Celecoxib 100 mg 06/20/24 15:00 06/23/24 08:58 Celecoxib 100 Mg Capsule PO 100 mg BID JAY Administration Docusate Sodium 100 mg 06/20/24 21:00 06/23/24 09:11 Docusate Sodium 100 Mg Capsule PO Not Given BID JAY Hydromorphone HCl 2 mg 06/20/24 14:51 06/21/24 06:41 Hydromorphone 2 Mg Tablet PO 2 mg Q3H PRN Administration pain Hydromorphone HCl 2 mg 06/21/24 13:56 06/23/24 08:58 Hydromorphone 2 Mg/Ml Vial IVP 2 mg Q4HR PRN Administration severe pain Vancomycin HCl 1 gm/ Sodium 250 mls @ 167 mls/hr 06/20/24 15:00 06/23/24 05:05 Chloride IV Infused Q12H JAY Infusion Levothyroxine Sodium 25 mcg 06/20/24 17:30 06/23/24 05:31 Levothyroxine 25 Mcg Tablet PO 25 mcg QDAC JAY Administration Magnesium Oxide 400 mg 06/21/24 08:00 06/23/24 08:57 Magnesium Oxide 400 Mg Tablet PO 400 mg DAILYWM JAY Administration Multivitamins/Minerals 1 tab 06/23/24 08:00 06/23/24 08:57 Multivitamin W/Minerals Tablet PO 1 tab DAILYWM JAY Administration Olanzapine 2.5 mg 06/20/24 21:00 06/22/24 22:28 Olanzapine Odt 5 Mg Tablet TL 2.5 mg HS JAY Administration Oxycodone HCl 5 mg 06/20/24 14:51 Oxycodone 5 Mg Tablet PO Q6HR PRN Severe Breakthrough pain(8-10) Tamoxifen 20mg 1 each 06/21/24 09:00 06/23/24 09:13 Tablet PO Not Given DAILY JAY Rosuvastatin 20 Mg 1 each 06/21/24 21:00 06/22/24 22:38 PO 1 each QPM JAY Administration Patient Own Medication 1 each 06/21/24 14:00 06/23/24 05:31 Patient Own Controlled 1 Each PO 1 each TID JAY Administration Prochlorperazine Maleate 10 mg 06/20/24 14:51 Prochlorperazine 5 Mg Tablet PO Q6H PRN nausea and vomiting Sertraline HCl 150 mg 06/21/24 09:00 06/23/24 08:58 Sertraline 50 Mg Tablet PO 150 mg DAILY JAY Administration Sodium Chloride 10 ml 06/20/24 14:51 Sodium Chloride Flush 0.9% 10 Ml Syringe IVP PRN PRN NEEDED PER PROVIDER ORDERS Sodium Chloride 10 ml 06/20/24 17:00 06/23/24 08:58 Sodium Chloride Flush 0.9% 10 Ml Syringe IVP 10 ml 0100,0900,1700 JAY Administration Sterile Water 30 ml 06/20/24 17:53 06/23/24 05:33 Water For Injection,Sterile 10 Ml Vial MC 30 ml Q8HR JAY Administration Objective Vital Signs/Intake & Output Reviewed Vital Signs: Yes Vital Signs: Vital Signs x48h Temp Pulse Resp BP Pulse Ox 06/22/24 09:36 97.2 F L 79 18 117/55 L 95 Intake & Output: Intake & Output 06/20/24 06/21/24 06/22/24 06/23/24 23:59 23:59 23:59 23:59 Intake Total 2249 250 / 250 Balance 2249 250 / 250 Weight (kg) 92.079 kg Objective General Appearance: positive No acute distress and Alert; negative Anxious Eyes Bilateral: positive Normal inspection, PERRL and EOMI ENT: positive ENT inspection nml, Pharynx nml and No signs of dehydration Neck: positive Nml inspection, Thyroid nml and No JVD Respiratory: positive Chest non-tender, No respiratory distress and Breath sounds nml; negative Wheezes, Rales or Rhonchi Cardiovascular: positive Regular rate & rhythm and No murmur; negative Tachycardia, Bradycardia, Systolic murmur or Diastolic murmur Abdomen: positive Non-tender and No distention; negative Guarding, Rebound, Hepatomegaly, Splenomegaly or Mass Back: positive Nml inspection; negative CVA tenderness (R) or CVA tenderness (L) Skin: positive Color nml, No rash, Warm and Dry Extremities: positive Nml appearance, No pedal edema and Other (Right hand wrapped, not unwrapped. Good sensation in all fingertips. Is able to move all fingertips slightly, improved from yesterday.) Neurologic/Psychiatric: positive Oriented x3 and Mood/affect nml Lab Results 06/23/24 05:50 06/23/24 05:50 Other Labs: Lab Results x24hrs 06/23/24 06/22/24 Range/Units 05:50 14:40 WBC 3.7 L (4.8-10.8) x10^3/uL RBC 3.30 L (4.20-5.40) 10^6/uL Hgb 10.1 L (12.0-16.0) g/dL Hct 32.6 L (37.0-47.0) % MCV 98.8 (81.0-99.0) fL MCH 30.6 (27.0-31.0) pg MCHC 31.0 L (32.0-36.0) g/dL RDW 14.5 (12.0-15.0) % Plt Count 183 (130-450) 10^3/uL MPV 11.3 H (7.9-10.8) fL Sodium 144 (135-145) mmol/L Potassium 3.7 (3.5-4.5) mmol/L Chloride 114 H (101-111) mmol/L Carbon Dioxide 27 (21-32) mmol/L Anion Gap 3.0 L (6-13) BUN 23 H (6-20) mg/dL Creatinine 0.6 (0.6-1.3) mg/dL Estimated GFR (MDRD) 99 (>89) Glucose 104 (74-104) mg/dL Calcium 8.8 (8.5-10.3) mg/dL Magnesium 1.8 (1.7-2.3) mg/dL CA 15-3 Antigen 10.3 (0.5-31.3) U/mL Last Dose Date 06/22/24 Last Dose Time 05:15 Vancomycin Trough 16.5 ug/mL Diagnostic Imaging Diagnostic Imaging Results: positive Final report reviewed Assessment/Plan Problem List (1) Septic arthritis: Impression: Patient with worsening pain and swelling of her right wrist. X-ray shows soft tissue swelling. Taken to the OR on 06/20 for washout, and I&D. Purulence expressed per operative note. Initial Gram stain shows no organisms, likely due to sterilized sample as she received IV antibiotics prior to going to the OR. Continue cefepime and vancomycin at this time. Blood cultures, wound cultures ordered, pending. As patient is immunocompromised, she will need 14 days of IV antibiotics. She will then need 7 additional days of oral antibiotics following this. Orthopedic surgery following. Qualifiers: Laterality: right Septic arthritis location: wrist Septic arthritis organism: due to unspecified organism Qualified Code(s): M00.9 - Pyogenic arthritis, unspecified (2) COVID-19: Impression: Patient tested positive for COVID on 06/13. Largely asymptomatic at this time. Will need droplet precautions until 06/23. Removed at this time. (3) Pulmonary embolus, left: Impression: Continue Eliquis. (4) Type 2 diabetes mellitus with peripheral neuropathy: Impression: Patient states that she is prediabetic, and just on metformin. A1c of 6.1%. Hold off on low-dose sliding scale at this time. (5) Hypothyroidism: Impression: Continue levothyroxine. Qualifiers: Hypothyroidism type: unspecified Qualified Code(s): E03.9 - Hypothyroidism, unspecified (6) Paroxysmal atrial flutter: Impression: Continue Coreg, Eliquis. (7) Major depressive disorder, recurrent episode, moderate: Impression: Continue sertraline. 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 Follows with Dr. Resendiz. Currently undergoing chemotherapy. Patient knows she is terminal. We did have a long discussion about her goals of care. She would like to be full code at this time. Continue p.o. Dilaudid. Continue IV Dilaudid for severe pain. Continue Lyrica.
[2024-06-23] MEDS: diphenhydrAMINE 25 MG CAPSULE PO PRN (12:57)
[2024-06-23] MEDS: PATIENT OWN CONTROLLED 1 EACH PO SCH (14:46)
[2024-06-23] MEDS: metFORMIN 500 MG TABLET PO SCH (16:10)
[2024-06-23] MEDS: CEFEPIME 2 GM VIAL IVP SCH (20:36)
[2024-06-24 05:51] LABS: HCT - HEMATOCRIT 31.6 % (37.0-47.0); HGB - HEMOGLOBIN 9.8 g/dL (12.0-16.0); MEAN CORPUSCULAR HEMOGLOBIN 30.4 pg (27.0-31.0); MEAN CORPUSCULAR VOLUME 98.1 fL (81.0-99.0); MEAN PLATELET VOLUME 10.9 fL (7.9-10.8); RED BLOOD COUNT 3.22 10^6/uL (4.20-5.40); RED CELL DISTRIBUTION WIDTH 14.3 % (12.0-15.0); WHITE BLOOD COUNT 3.5 x10^3/uL (4.8-10.8)
[2024-06-24 06:11] LABS: CALCIUM 8.1 mg/dL (8.5-10.3); CREATININE 0.6 mg/dL (0.6-1.3); MAGNESIUM 1.6 mg/dL (1.7-2.3); POTASSIUM 3.6 mmol/L (3.5-4.5)
[2024-06-24] MEDS: TAMOXIFEN 20 MG PO SCH (09:02)
--- NOTE | 2024-06-24 09:40 | PROVIDER PROGRESS NOTE ---
Subjective Subjective Subjective: Patient complains of some itchiness around her cast site. She states the pain is well-controlled with her current regimen. She expresses some concern that she had some shortness of breath yesterday. We did order a chest x-ray to assess further. She has no cough, shortness of breath at this time. Current Medications Current Medications Current Medications: Current Medications Generic Name Dose Route Start Last Admin Trade Name Freq PRN Reason Stop Dose Admin Acetaminophen 1,000 mg 06/20/24 22:00 06/24/24 05:21 Acetaminophen 500 Mg Tablet PO 1,000 mg TID JAY Administration Apixaban 2.5 mg 06/20/24 21:00 06/24/24 09:01 Apixaban 2.5 Mg Tablet PO 2.5 mg BID JAY Administration Cefepime HCl 2 gm 06/23/24 21:00 06/24/24 09:00 Cefepime 2 Gm Vial IVP 2 gm BID JAY Administration Celecoxib 100 mg 06/20/24 15:00 06/24/24 09:03 Celecoxib 100 Mg Capsule PO 100 mg BID JAY Administration Diphenhydramine HCl 25 mg 06/23/24 12:48 06/24/24 07:51 Diphenhydramine 25 Mg Capsule PO 25 mg Q6HR PRN Administration Allergy Symptoms Docusate Sodium 100 mg 06/20/24 21:00 06/24/24 09:02 Docusate Sodium 100 Mg Capsule PO Not Given BID JAY Hydromorphone HCl 2 mg 06/20/24 14:51 06/21/24 06:41 Hydromorphone 2 Mg Tablet PO 2 mg Q3H PRN Administration pain Hydromorphone HCl 2 mg 06/21/24 13:56 06/24/24 05:21 Hydromorphone 2 Mg/Ml Vial IVP 2 mg Q4HR PRN Administration severe pain Vancomycin HCl 1 gm/ Sodium 250 mls @ 167 mls/hr 06/20/24 15:00 06/24/24 03:37 Chloride IV 167 mls/hr Q12H JAY Administration Levothyroxine Sodium 25 mcg 06/20/24 17:30 06/24/24 05:21 Levothyroxine 25 Mcg Tablet PO 25 mcg QDAC JAY Administration Magnesium Oxide 400 mg 06/21/24 08:00 06/24/24 09:01 Magnesium Oxide 400 Mg Tablet PO 400 mg DAILYWM JAY Administration Metformin HCl 500 mg 06/23/24 17:00 06/24/24 09:01 Metformin 500 Mg Tablet PO 500 mg BIDWM JAY Administration Multivitamins/Minerals 1 tab 06/23/24 08:00 06/24/24 09:01 Multivitamin W/Minerals Tablet PO 1 tab DAILYWM JAY Administration Olanzapine 2.5 mg 06/20/24 21:00 06/23/24 20:38 Olanzapine Odt 5 Mg Tablet TL 2.5 mg HS JAY Administration Oxycodone HCl 5 mg 06/20/24 14:51 Oxycodone 5 Mg Tablet PO Q6HR PRN Severe Breakthrough pain(8-10) Rosuvastatin 20 Mg 1 each 06/21/24 21:00 06/23/24 20:38 PO 1 each QPM JAY Administration Tamoxifen 20mg 1 each 06/24/24 09:00 06/24/24 09:02 Tablet PO 1 each DAILY JAY Administration Patient Own Medication 1 each 06/23/24 14:00 06/24/24 09:01 Patient Own Controlled 1 Each PO 1 each 0900,1600,2100 JAY Administration Prochlorperazine Maleate 10 mg 06/20/24 14:51 Prochlorperazine 5 Mg Tablet PO Q6H PRN nausea and vomiting Sertraline HCl 150 mg 06/21/24 09:00 06/24/24 09:01 Sertraline 50 Mg Tablet PO 150 mg DAILY JAY Administration Sodium Chloride 10 ml 06/20/24 14:51 Sodium Chloride Flush 0.9% 10 Ml Syringe IVP PRN PRN NEEDED PER PROVIDER ORDERS Sodium Chloride 10 ml 06/20/24 17:00 06/24/24 09:00 Sodium Chloride Flush 0.9% 10 Ml Syringe IVP 10 ml 0100,0900,1700 JAY Administration Sterile Water 30 ml 06/24/24 09:00 06/24/24 09:03 Water For Injection,Sterile 10 Ml Vial MC 30 ml BID JAY Administration Objective Vital Signs/Intake & Output Reviewed Vital Signs: Yes Vital Signs: Vital Signs x48h Temp Pulse Resp BP Pulse Ox 06/24/24 07:46 97.7 F 64 18 163/74 H 94 Intake & Output: Intake & Output 03/13/25 03/14/25 03/15/25 03/16/25 23:59 23:59 23:59 23:59 Intake Total 1919 500 / 500 Balance 1919 500 / 500 Weight (kg) 92.079 kg Objective General Appearance: positive No acute distress and Alert; negative Anxious Eyes Bilateral: positive Normal inspection, PERRL and EOMI ENT: positive ENT inspection nml, Pharynx nml and No signs of dehydration Neck: positive Nml inspection, Thyroid nml and No JVD Respiratory: positive Chest non-tender, No respiratory distress and Breath sounds nml; negative Wheezes, Rales or Rhonchi Cardiovascular: positive Regular rate & rhythm and No murmur; negative Tachycardia, Bradycardia, Systolic murmur or Diastolic murmur Abdomen: positive Non-tender and No distention; negative Guarding, Rebound, Hepatomegaly, Splenomegaly or Mass Back: positive Nml inspection; negative CVA tenderness (R) or CVA tenderness (L) Skin: positive Color nml, No rash, Warm and Dry Extremities: positive Nml appearance, No pedal edema and Other (Right hand wrapped, not unwrapped. Good sensation in all fingertips. Is able to move all fingertips slightly, improved from yesterday.) Neurologic/Psychiatric: positive Oriented x3 and Mood/affect nml Lab Results 06/24/24 05:20 06/24/24 05:20 Other Labs: Lab Results x24hrs 06/24/24 Range/Units 05:20 WBC 3.5 L (4.8-10.8) x10^3/uL RBC 3.22 L (4.20-5.40) 10^6/uL Hgb 9.8 L (12.0-16.0) g/dL Hct 31.6 L (37.0-47.0) % MCV 98.1 (81.0-99.0) fL MCH 30.4 (27.0-31.0) pg MCHC 31.0 L (32.0-36.0) g/dL RDW 14.3 (12.0-15.0) % Plt Count 168 (130-450) 10^3/uL MPV 10.9 H (7.9-10.8) fL Sodium 143 (135-145) mmol/L Potassium 3.6 (3.5-4.5) mmol/L Chloride 112 H (101-111) mmol/L Carbon Dioxide 27 (21-32) mmol/L Anion Gap 4.0 L (6-13) BUN 18 (6-20) mg/dL Creatinine 0.6 (0.6-1.3) mg/dL Estimated GFR (MDRD) 99 (>89) Glucose 99 (74-104) mg/dL Calcium 8.1 L (8.5-10.3) mg/dL Magnesium 1.6 L (1.7-2.3) mg/dL Diagnostic Imaging Diagnostic Imaging Results: positive Final report reviewed Assessment/Plan Problem List (1) Septic arthritis: Impression: Patient with worsening pain and swelling of her right wrist. X-ray shows soft tissue swelling. Taken to the OR on 06/20 for washout, and I&D. Purulence expressed per operative note. Initial Gram stain shows no organisms, likely due to sterilized sample as she received IV antibiotics prior to going to the OR. Continue cefepime and vancomycin at this time. Blood cultures, wound cultures ordered, pending. As patient is immunocompromised, she will need 14 days of IV antibiotics. She will then need 7 additional days of oral antibiotics following this. Orthopedic surgery following. Qualifiers: Laterality: right Septic arthritis location: wrist Septic arthritis organism: due to unspecified organism Qualified Code(s): M00.9 - Pyogenic arthritis, unspecified (2) COVID-19: Impression: Patient tested positive for COVID on 06/13. Largely asymptomatic at this time. Will need droplet precautions until 06/23. Removed at this time. (3) Pulmonary embolus, left: Impression: Continue Eliquis. (4) Type 2 diabetes mellitus with peripheral neuropathy: Impression: Patient states that she is prediabetic, and just on metformin. A1c of 6.1%. Hold off on low-dose sliding scale at this time. (5) Hypothyroidism: Impression: Continue levothyroxine. Qualifiers: Hypothyroidism type: unspecified Qualified Code(s): E03.9 - Hypothyroidism, unspecified (6) Paroxysmal atrial flutter: Impression: Continue Coreg, Eliquis. (7) Major depressive disorder, recurrent episode, moderate: Impression: Continue sertraline. 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 Follows with Dr. Resendiz. Currently undergoing chemotherapy. Patient knows she is terminal. We did have a long discussion about her goals of care. She would like to be full code at this time. Continue p.o. Dilaudid. Continue IV Dilaudid for severe pain. Continue Lyrica.
[2024-06-24] MEDS: HYDROCORTISONE 1% CREAM 28 GM TUBE TOP SCH (13:07)
--- NOTE | 2024-06-24 15:27 | XRAY Report ---
PROCEDURE: XR Chest 1V INDICATIONS: PIA TECHNIQUE: One view of the chest was acquired. COMPARISON: 01/03/2024. FINDINGS: Surgical changes and devices: Right chest wall Port-A-Cath tip is in SVC. Surgical clips are noted i n left breast and left axilla.. Lungs and pleura: No pleural effusions or pneumothorax. No consolidation. Mediastinum: Mediastinal contours appear normal. Heart size is enlarged. Bones and chest wall: No suspicious bony lesions. Overlying soft tissues appear unremarkable. IMPRESSION: No acute cardiopulmonary process. Reviewed by: Artie García MD on 06/24/2024 3:25 PM PDT Approved by: Artie García MD on 06/24/2024 3:25 PM PDT Station ID: [id number]
[2024-06-24] MEDS: SODIUM CHLORIDE FLUSH 0.9% 10 ML SYRINGE IVP PRN (22:00)
[2024-06-25 06:40] LABS: HCT - HEMATOCRIT 31.6 % (37.0-47.0); HGB - HEMOGLOBIN 9.9 g/dL (12.0-16.0); MEAN CORPUSCULAR HEMOGLOBIN 30.3 pg (27.0-31.0); MEAN CORPUSCULAR HGB CONC 31.3 g/dL (32.0-36.0); MEAN CORPUSCULAR VOLUME 96.6 fL (81.0-99.0); MEAN PLATELET VOLUME 10.6 fL (7.9-10.8); RED BLOOD COUNT 3.27 10^6/uL (4.20-5.40); RED CELL DISTRIBUTION WIDTH 14.1 % (12.0-15.0); WHITE BLOOD COUNT 3.9 x10^3/uL (4.8-10.8)
[2024-06-25 06:57] LABS: CALCIUM 8.1 mg/dL (8.5-10.3); CREATININE 0.6 mg/dL (0.6-1.3); MAGNESIUM 1.4 mg/dL (1.7-2.3); POTASSIUM 3.6 mmol/L (3.5-4.5)
[2024-06-25] MEDS: LACTOBACILLUS RHAMNOSUS GG CAPSULE PO SCH (09:34)
--- NOTE | 2024-06-25 09:47 | PROVIDER PROGRESS NOTE ---
Subjective Subjective Subjective: Patient is a 69-year-old female with a history of breast cancer with extensive metastasis to the bone and liver who presented with swelling, erythema of her right wrist. Incision and drainage was done by orthopedic surgeon, who saw purulence in the wrist. She received a dose of IV antibiotics prior to the washout, and as such, the sample has been sterilized, and there has been no growth to date. Regardless, we will treat as septic arthritis as patient is immunocompromise, and purulence was seen in the OR. As such, she is going to require 2 weeks of IV antibiotics, followed by a week of oral antibiotics. As we do not have a bug, we will treat broadly to include MRSA and Pseudomonas with vancomycin and cefepime for 2 weeks. Patient is understandably frustrated with this 3-week treatment course, as it will delay her chemotherapy. She is understanding of the situation though. Patient complains of some itchiness around her cast site. She states the pain is well-controlled with her current regimen. She expresses some concern that she had some shortness of breath yesterday. We did order a chest x-ray to assess further, which was negative for any acute process. She has no cough at this time. Current Medications Current Medications Current Medications: Current Medications Generic Name Dose Route Start Last Admin Trade Name Freq PRN Reason Stop Dose Admin Acetaminophen 1,000 mg 06/20/24 22:00 06/25/24 06:18 Acetaminophen 500 Mg Tablet PO 1,000 mg TID JAY Administration Apixaban 2.5 mg 06/20/24 21:00 06/25/24 09:03 Apixaban 2.5 Mg Tablet PO 2.5 mg BID JAY Administration Cefepime HCl 2 gm 06/23/24 21:06/25/24 09:02 Cefepime 2 Gm Vial IVP 2 gm BID JAY Administration Celecoxib 100 mg 06/20/24 15:00 06/25/24 09:03 Celecoxib 100 Mg Capsule PO 100 mg BID JAY Administration Diphenhydramine HCl 25 mg 06/23/24 12:48 06/25/24 04:14 Diphenhydramine 25 Mg Capsule PO 25 mg Q6HR PRN Administration Allergy Symptoms Docusate Sodium 100 mg 06/20/24 21:00 06/25/24 09:04 Docusate Sodium 100 Mg Capsule PO Not Given BID JAY Hydrocortisone 1 applic 06/24/24 13:00 06/25/24 09:04 Hydrocortisone 1% Cream 28 Gm Tube TOP 1 applic BID JAY Administration Hydromorphone HCl 2 mg 06/20/24 14:51 06/24/24 15:41 Hydromorphone 2 Mg Tablet PO 2 mg Q3H PRN Administration pain Hydromorphone HCl 2 mg 06/21/24 13:56 06/25/24 09:02 Hydromorphone 2 Mg/Ml Vial IVP 2 mg Q4HR PRN Administration severe pain Vancomycin HCl 1 gm/ Sodium 250 mls @ 167 mls/hr 06/20/24 15:00 06/25/24 05:29 Chloride IV Infused Q12H JAY Infusion Lactobacillus Rhamnosus 1 cap 06/25/24 09:00 06/25/24 09:34 Lactobacillus Rhamnosus Gg Capsule PO 1 cap DAILY JAY Administration Levothyroxine Sodium 25 mcg 06/20/24 17:30 06/25/24 06:18 Levothyroxine 25 Mcg Tablet PO 25 mcg QDAC JAY Administration Magnesium Oxide 400 mg 06/21/24 08:00 06/25/24 09:03 Magnesium Oxide 400 Mg Tablet PO 400 mg DAILYWM JAY Administration Metformin HCl 500 mg 06/23/24 17:00 06/25/24 09:03 Metformin 500 Mg Tablet PO 500 mg BIDWM JAY Administration Multivitamins/Minerals 1 tab 06/23/24 08:00 06/25/24 09:02 Multivitamin W/Minerals Tablet PO 1 tab DAILYWM JAY Administration Olanzapine 2.5 mg 06/20/24 21:00 06/24/24 21:53 Olanzapine Odt 5 Mg Tablet TL 2.5 mg HS JAY Administration Oxycodone HCl 5 mg 06/20/24 14:51 Oxycodone 5 Mg Tablet PO Q6HR PRN Severe Breakthrough pain(8-10) Rosuvastatin 20 Mg 1 each 06/21/24 21:00 06/24/24 21:56 PO 1 each QPM JAY Administration Tamoxifen 20mg 1 each 06/24/24 09:00 06/25/24 09:35 Tablet PO 1 each DAILY JAY Administration Patient Own Medication 1 each 06/23/24 14:00 06/25/24 09:03 Patient Own Controlled 1 Each PO 1 each 0900,1600,2100 JAY Administration Prochlorperazine Maleate 10 mg 06/20/24 14:51 Prochlorperazine 5 Mg Tablet PO Q6H PRN nausea and vomiting Sertraline HCl 150 mg 06/21/24 09:00 06/25/24 09:03 Sertraline 50 Mg Tablet PO 150 mg DAILY JAY Administration Sodium Chloride 10 ml 06/20/24 14:51 06/25/24 06:18 Sodium Chloride Flush 0.9% 10 Ml Syringe IVP 10 ml PRN PRN Administration NEEDED PER PROVIDER ORDERS Sodium Chloride 10 ml 06/20/24 17:00 06/25/24 09:02 Sodium Chloride Flush 0.9% 10 Ml Syringe IVP 10 ml 0100,0900,1700 JAY Administration Sterile Water 30 ml 06/24/24 09:00 06/25/24 09:04 Water For Injection,Sterile 10 Ml Vial MC 30 ml BID JAY Administration Objective Vital Signs/Intake & Output Reviewed Vital Signs: Yes Vital Signs: Vital Signs x48h Temp Pulse Resp BP Pulse Ox 06/25/24 08:35 97.9 F 67 18 154/72 H 95 Intake & Output: Intake & Output 06/22/24 06/23/24 06/24/24 06/25/24 23:59 23:59 23:59 23:59 Intake Total 1979 2920 / 2920 1080 / 1080 Balance 1979 2920 / 2920 1080 / 1080 Objective General Appearance: positive No acute distress and Alert; negative Anxious Eyes Bilateral: positive Normal inspection, PERRL and EOMI ENT: positive ENT inspection nml, Pharynx nml and No signs of dehydration Neck: positive Nml inspection, Thyroid nml and No JVD Respiratory: positive Chest non-tender, No respiratory distress and Breath sounds nml; negative Wheezes, Rales or Rhonchi Cardiovascular: positive Regular rate & rhythm and No murmur; negative Tachycardia, Bradycardia, Systolic murmur or Diastolic murmur Abdomen: positive Non-tender and No distention; negative Guarding, Rebound, Hepatomegaly, Splenomegaly or Mass Back: positive Nml inspection; negative CVA tenderness (R) or CVA tenderness (L) Skin: positive Color nml, No rash, Warm and Dry Extremities: positive Nml appearance, No pedal edema and Other (Right hand wrapped, not unwrapped. Good sensation in all fingertips. Is able to move all fingertips slightly, improved from yesterday.) Neurologic/Psychiatric: positive Oriented x3 and Mood/affect nml Lab Results 06/25/24 06:20 06/25/24 06:20 Other Labs: Lab Results x24hrs 06/25/24 Range/Units 06:20 WBC 3.9 L (4.8-10.8) x10^3/uL RBC 3.27 L (4.20-5.40) 10^6/uL Hgb 9.9 L (12.0-16.0) g/dL Hct 31.6 L (37.0-47.0) % MCV 96.6 (81.0-99.0) fL MCH 30.3 (27.0-31.0) pg MCHC 31.3 L (32.0-36.0) g/dL RDW 14.1 (12.0-15.0) % Plt Count 160 (130-450) 10^3/uL MPV 10.6 (7.9-10.8) fL Sodium 144 (135-145) mmol/L Potassium 3.6 (3.5-4.5) mmol/L Chloride 111 (101-111) mmol/L Carbon Dioxide 30 (21-32) mmol/L Anion Gap 3.0 L (6-13) BUN 11 (6-20) mg/dL Creatinine 0.6 (0.6-1.3) mg/dL Estimated GFR (MDRD) 99 (>89) Glucose 83 (74-104) mg/dL Calcium 8.1 L (8.5-10.3) mg/dL Magnesium 1.4 L (1.7-2.3) mg/dL Diagnostic Imaging Diagnostic Imaging Results: positive Final report reviewed Assessment/Plan Problem List (1) Septic arthritis: Impression: Patient with worsening pain and swelling of her right wrist. X-ray shows soft tissue swelling. Taken to the OR on 06/20 for washout, and I&D. Purulence expressed per operative note. Initial Gram stain shows no organisms, likely due to sterilized sample as she received IV antibiotics prior to going to the OR. Continue cefepime and vancomycin at this time. Blood cultures, wound cultures ordered, pending. As patient is immunocompromised, she will need 14 days of IV antibiotics. She will then need 7 additional days of oral antibiotics following this. Orthopedic surgery following. Qualifiers: Laterality: right Septic arthritis location: wrist Septic arthritis organism: due to unspecified organism Qualified Code(s): M00.9 - Pyogenic arthritis, unspecified (2) COVID-19: Impression: Patient tested positive for COVID on 06/13. Largely asymptomatic at this time. Will need droplet precautions until 06/23. Removed at this time. (3) Pulmonary embolus, left: Impression: Continue Eliquis. (4) Type 2 diabetes mellitus with peripheral neuropathy: Impression: Patient states that she is prediabetic, and just on metformin. A1c of 6.1%. Hold off on low-dose sliding scale at this time. (5) Hypothyroidism: Impression: Continue levothyroxine. Qualifiers: Hypothyroidism type: unspecified Qualified Code(s): E03.9 - Hypothyroidism, unspecified (6) Paroxysmal atrial flutter: Impression: Continue Coreg, Eliquis. (7) Major depressive disorder, recurrent episode, moderate: Impression: Continue sertraline. 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 Follows with Dr. Resendiz. Currently undergoing chemotherapy. Patient knows she is terminal. We did have a long discussion about her goals of care. She would like to be full code at this time. Continue p.o. Dilaudid. Continue IV Dilaudid for severe pain. Continue Lyrica.
--- NOTE | 2024-06-25 14:48 | PROVIDER PROGRESS NOTE ---
Subjective Subjective Subjective: Patient is a 69-year-old female with a history of breast cancer with extensive metastasis to the bone and liver who presented with swelling, erythema of her right wrist. Incision and drainage was done by orthopedic surgeon, who saw purulence in the wrist. She received a dose of IV antibiotics prior to the washout, and as such, the sample has been sterilized, and there has been no growth to date. Regardless, we will treat as septic arthritis as patient is immunocompromise, and purulence was seen in the OR. As such, she is going to require 2 weeks of IV antibiotics, followed by a week of oral antibiotics. As we do not have a bug, we will treat broadly to include MRSA and Pseudomonas with vancomycin and cefepime for 2 weeks. Patient is understandably frustrated with this 3-week treatment course, as it will delay her chemotherapy. She is understanding of the situation though. Patient complains of some itchiness around her cast site. She states the pain is well-controlled with her current regimen. She expresses some concern that she had some shortness of breath yesterday. We did order a chest x-ray to assess further, which was negative for any acute process. She has no cough at this time. Current Medications Current Medications Current Medications: Current Medications Generic Name Dose Route Start Last Admin Trade Name Freq PRN Reason Stop Dose Admin Acetaminophen 1,000 mg 06/20/24 22:00 06/25/24 14:30 Acetaminophen 500 Mg Tablet PO 1,000 mg TID JAY Administration Apixaban 2.5 mg 06/20/24 21:00 06/25/24 09:03 Apixaban 2.5 Mg Tablet PO 2.5 mg BID JAY Administration Cefepime HCl 2 gm 06/23/24 21:06/25/24 09:02 Cefepime 2 Gm Vial IVP 2 gm BID JAY Administration Celecoxib 100 mg 06/20/24 15:00 06/25/24 09:03 Celecoxib 100 Mg Capsule PO 100 mg BID JAY Administration Diphenhydramine HCl 25 mg 06/23/24 12:48 06/25/24 04:14 Diphenhydramine 25 Mg Capsule PO 25 mg Q6HR PRN Administration Allergy Symptoms Docusate Sodium 100 mg 06/20/24 21:00 06/25/24 09:04 Docusate Sodium 100 Mg Capsule PO Not Given BID JAY Hydrocortisone 1 applic 06/24/24 13:00 06/25/24 09:04 Hydrocortisone 1% Cream 28 Gm Tube TOP 1 applic BID JAY Administration Hydromorphone HCl 2 mg 06/21/24 13:56 06/25/24 09:02 Hydromorphone 2 Mg/Ml Vial IVP 2 mg Q4HR PRN Administration severe pain Hydromorphone HCl 2 mg 06/25/24 17:00 Hydromorphone 2 Mg Tablet PO Q4HR JAY Vancomycin HCl 1 gm/ Sodium 250 mls @ 167 mls/hr 06/20/24 15:00 06/25/24 14:29 Chloride IV 167 mls/hr Q12H JAY Administration Lactobacillus Rhamnosus 1 cap 06/25/24 09:00 06/25/24 09:34 Lactobacillus Rhamnosus Gg Capsule PO 1 cap DAILY JAY Administration Levothyroxine Sodium 25 mcg 06/20/24 17:30 06/25/24 06:18 Levothyroxine 25 Mcg Tablet PO 25 mcg QDAC JAY Administration Magnesium Oxide 400 mg 06/21/24 08:00 06/25/24 09:03 Magnesium Oxide 400 Mg Tablet PO 400 mg DAILYWM JAY Administration Metformin HCl 500 mg 06/23/24 17:00 06/25/24 09:03 Metformin 500 Mg Tablet PO 500 mg BIDWM JAY Administration Multivitamins/Minerals 1 tab 06/23/24 08:00 06/25/24 09:02 Multivitamin W/Minerals Tablet PO 1 tab DAILYWM JAY Administration Olanzapine 2.5 mg 06/20/24 21:00 06/24/24 21:53 Olanzapine Odt 5 Mg Tablet TL 2.5 mg HS JAY Administration Oxycodone HCl 5 mg 06/20/24 14:51 Oxycodone 5 Mg Tablet PO Q6HR PRN Severe Breakthrough pain(8-10) Rosuvastatin 20 Mg 1 each 06/21/24 21:00 06/24/24 21:56 PO 1 each QPM JAY Administration Tamoxifen 20mg 1 each 06/24/24 09:00 06/25/24 09:35 Tablet PO 1 each DAILY JAY Administration Patient Own Medication 1 each 06/23/24 14:00 06/25/24 09:03 Patient Own Controlled 1 Each PO 1 each 0900,1600,2100 JAY Administration Prochlorperazine Maleate 10 mg 06/20/24 14:51 Prochlorperazine 5 Mg Tablet PO Q6H PRN nausea and vomiting Sertraline HCl 150 mg 06/21/24 09:00 06/25/24 09:03 Sertraline 50 Mg Tablet PO 150 mg DAILY JAY Administration Sodium Chloride 10 ml 06/20/24 14:51 06/25/24 06:18 Sodium Chloride Flush 0.9% 10 Ml Syringe IVP 10 ml PRN PRN Administration NEEDED PER PROVIDER ORDERS Sodium Chloride 10 ml 06/20/24 17:00 06/25/24 09:02 Sodium Chloride Flush 0.9% 10 Ml Syringe IVP 10 ml 0100,0900,1700 JAY Administration Sterile Water 30 ml 06/24/24 09:00 06/25/24 09:04 Water For Injection,Sterile 10 Ml Vial MC 30 ml BID JAY Administration Objective Vital Signs/Intake & Output Reviewed Vital Signs: Yes Vital Signs: Vital Signs x48h Temp Pulse Resp BP Pulse Ox 06/25/24 08:35 97.9 F 67 18 154/72 H 95 Intake & Output: Intake & Output 06/22/24 06/23/24 06/24/24 06/25/24 23:59 23:59 23:59 23:59 Intake Total 1979 2920 / 2920 1320 / 1320 Balance 1979 2920 / 2920 1320 / 1320 Objective General Appearance: positive No acute distress and Alert; negative Anxious Eyes Bilateral: positive Normal inspection, PERRL and EOMI ENT: positive ENT inspection nml, Pharynx nml and No signs of dehydration Neck: positive Nml inspection, Thyroid nml and No JVD Respiratory: positive Chest non-tender, No respiratory distress and Breath sounds nml; negative Wheezes, Rales or Rhonchi Cardiovascular: positive Regular rate & rhythm and No murmur; negative Tachycardia, Bradycardia, Systolic murmur or Diastolic murmur Abdomen: positive Non-tender and No distention; negative Guarding, Rebound, Hepatomegaly, Splenomegaly or Mass Back: positive Nml inspection; negative CVA tenderness (R) or CVA tenderness (L) Skin: positive Color nml, No rash, Warm and Dry Extremities: positive Nml appearance, No pedal edema and Other (Right hand wrapped, not unwrapped. Good sensation in all fingertips. Is able to move all fingertips slightly, improved from yesterday.) Neurologic/Psychiatric: positive Oriented x3 and Mood/affect nml Lab Results 06/25/24 06:20 06/25/24 06:20 Other Labs: Lab Results x24hrs 06/25/24 Range/Units 06:20 WBC 3.9 L (4.8-10.8) x10^3/uL RBC 3.27 L (4.20-5.40) 10^6/uL Hgb 9.9 L (12.0-16.0) g/dL Hct 31.6 L (37.0-47.0) % MCV 96.6 (81.0-99.0) fL MCH 30.3 (27.0-31.0) pg MCHC 31.3 L (32.0-36.0) g/dL RDW 14.1 (12.0-15.0) % Plt Count 160 (130-450) 10^3/uL MPV 10.6 (7.9-10.8) fL Sodium 144 (135-145) mmol/L Potassium 3.6 (3.5-4.5) mmol/L Chloride 111 (101-111) mmol/L Carbon Dioxide 30 (21-32) mmol/L Anion Gap 3.0 L (6-13) BUN 11 (6-20) mg/dL Creatinine 0.6 (0.6-1.3) mg/dL Estimated GFR (MDRD) 99 (>89) Glucose 83 (74-104) mg/dL Calcium 8.1 L (8.5-10.3) mg/dL Magnesium 1.4 L (1.7-2.3) mg/dL Diagnostic Imaging Diagnostic Imaging Results: positive Final report reviewed Assessment/Plan Problem List (1) Septic arthritis: Impression: Patient with worsening pain and swelling of her right wrist. X-ray shows soft tissue swelling. Taken to the OR on 06/20 for washout, and I&D. Purulence expressed per operative note. Initial Gram stain shows no organisms, likely due to sterilized sample as she received IV antibiotics prior to going to the OR. Continue cefepime and vancomycin at this time. Blood cultures, wound cultures ordered, pending. As patient is immunocompromised, she will need 14 days of IV antibiotics. She will then need 7 additional days of oral antibiotics following this. Orthopedic surgery following. Qualifiers: Laterality: right Septic arthritis location: wrist Septic arthritis organism: due to unspecified organism Qualified Code(s): M00.9 - Pyogenic arthritis, unspecified (2) COVID-19: Impression: Patient tested positive for COVID on 06/13. Largely asymptomatic at this time. Will need droplet precautions until 06/23. Removed at this time. (3) Pulmonary embolus, left: Impression: Continue Eliquis. (4) Type 2 diabetes mellitus with peripheral neuropathy: Impression: Patient states that she is prediabetic, and just on metformin. A1c of 6.1%. Hold off on low-dose sliding scale at this time. (5) Hypothyroidism: Impression: Continue levothyroxine. Qualifiers: Hypothyroidism type: unspecified Qualified Code(s): E03.9 - Hypothyroidism, unspecified (6) Paroxysmal atrial flutter: Impression: Continue Coreg, Eliquis. (7) Major depressive disorder, recurrent episode, moderate: Impression: Continue sertraline. 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 Follows with Dr. Resendiz. Currently undergoing chemotherapy. Patient knows she is terminal. We did have a long discussion about her goals of care. She would like to be full code at this time. Continue p.o. Dilaudid. Spoke with Palliative care today - they recommended scheduling Dilaudid 2mg q4hrs for now. Continue IV Dilaudid for severe pain. Continue Lyrica.
--- NOTE | 2024-06-25 14:52 | Palliative Care ---
Vitals Vital Signs 06/19/24 16:47 06/20/24 00:05 06/20/24 00:47 06/20/24 02:48 06/20/24 03:51 06/20/24 04:52 06/20/24 07:48 06/20/24 10:00 06/20/24 12:45 06/20/24 12:50 06/20/24 12:55 06/20/24 13:00 06/20/24 13:05 06/20/24 13:10 06/20/24 13:15 06/20/24 13:30 06/20/24 14:30 06/20/24 15:00 06/20/24 17:00 06/20/24 19:00 06/20/24 22:35 06/21/24 01:00 06/21/24 05:13 06/21/24 14:35 06/21/24 17:14 06/22/24 01:17 06/22/24 09:36 06/22/24 15:33 06/22/24 16:44 06/23/24 00:02 06/23/24 08:55 06/23/24 16:26 06/24/24 00:24 06/24/24 07:46 06/24/24 16:00 06/25/24 00:18 06/25/24 08:35 06/25/24 16:32 06/25/24 17:12 Height 5 ft 6 in 5 ft 6 in 5 ft 6 in Weight 203 lb 203 lb 203 lb BMI 32.7 32.7 BP 168/64 H 167/84 H 172/61 H 185/78 H 180/90 H 173/101 H 198/82 H 1 66/103 H 196/85 H 189/87 H 165/55 H 133/64 H 133/62 H 140/69 H 156/97 H 145/80 H 138/74 H 138/77 H 162/68 H 111/51 L 117/55 L 145/57 H 157/75 H 172/91 H 144/65 H 146/87 H 163/74 H 156/70 H 158/66 H 154/72 H 162/86 H Respiration 22 20 16 16 16 16 16 20 18 20 16 18 16 16 18 16 16 16 20 18 20 18 16 18 18 18 18 18 16 16 18 18 18 18 18 Pulse 94 85 93 94 78 79 72 84 87 84 83 86 89 84 76 81 66 63 7 4 74 59 L 76 64 68 79 59 L 58 L 63 54 L 57 L 64 61 66 67 60 Temp 98.4 F 98.4 F 98.6 F 98.2 F 97.3 F L 97.3 F L 97.8 F 96. 8 F L 97.3 F L 97.0 F L 96.8 F L 97.5 F L 97.9 F 97.3 F L 97.2 F L 97.3 F L 97 .3 F L 97.5 F L 98.2 F 98.1 F 97.7 F 98.4 F 98.2 F 97.9 F 97.9 F Temp Source Skin Temporal Artery Scan Tympanic Temporal Artery S can Temporal Artery Scan Oral Temporal Artery Scan Temporal Artery Scan Temporal Artery Scan Skin Temporal Artery Scan Temporal Artery Scan Skin Temporal Art ángel Scan Temporal Artery Scan Temporal Artery Scan Temporal Artery Scan Temporal Artery Scan Temporal Artery Scan Temporal Artery Scan Temporal Artery Scan Temporal Artery Scan Temporal Artery Scan Temporal Artery Scan Pulse Oximetry 96 94 97 94 95 94 94 93 100 100 100 94 92 95 91 L 98 98 92 92 95 93 95 95 97 96 95 95 95 99 95 96 94 93 94 95 Meds/Allgy Home Medications Ambulatory Orders Medication Instructions Recorded Confirmed dulaglutide 0.75 mg/0.5 mL 0.75 mg SQ UD 11/10/21 06/21/24 subcutaneous pen injector (Trulicity) loperamide 2 mg capsule 2 mg PO ONCE PRN Diarrhea 12/24/21 06/21/24 Permanent Disabled Placard 02/03/24 05/16/24 diphenoxylate-atropine 2.5 See Rx Instructions .Route QID 02/03/24 06/21/24 mg-0.025 mg tablet ondansetron 8 mg disintegrating 8 mg PO TID 02/03/24 06/21/24 tablet prochlorperazine maleate 10 mg 10 mg PO Q6H PRN nausea and 02/03/24 06/21/24 tablet (Compazine) vomiting sertraline 100 mg tablet 100 mg PO DAILY 02/03/24 06/21/24 tamoxifen 20 mg tablet 20 mg PO QDAY 02/03/24 06/21/24 levothyroxine 25 mcg tablet See Rx Instructions .Route 03/06/24 06/21/24 .COMPLEX #90 tabs rosuvastatin 20 mg tablet See Rx Instructions .Route 03/06/24 06/21/24 .COMPLEX #90 tabs sertraline 50 mg tablet 50 mg PO QDAY #90 tabs 03/09/24 06/21/24 dexamethasone 2 mg tablet 2 mg PO QDAY 03/27/24 06/21/24 metformin 500 mg tablet 500 mg PO BID #180 tabs 04/13/24 06/21/24 apixaban 2.5 mg tablet (Eliquis) 2.5 mg PO BID #60 tabs 04/20/24 06/21/24 hydromorphone 2 mg tablet 2 - 4 mg (1 - 2 x 2 mg) PO Q3H PRN 04/25/24 06/21/24 pain #100 tabs pregabalin 150 mg capsule 150 mg PO TID 05/09/24 06/21/24 celecoxib 100 mg capsule 100 mg PO BID #180 caps 05/16/24 06/21/24 carvedilol 3.125 mg tablet 3.125 mg PO BID 05/17/24 06/21/24 magnesium oxide 500 mg capsule 500 mg PO QDAY low magnesium #6 05/24/24 06/21/24 caps olanzapine 2.5 mg tablet (Zyprexa) 2.5 mg PO QPM 06/21/24 06/21/24 Allergies Allergies Allergy/AdvReac Type Severity Reaction Status Date / Time adhesive Allergy Severe Rash Verified 06/19/24 16:53 anastrozole Allergy Dizziness Verified 06/19/24 16:53 hydroxyzine Allergy Itching Verified 06/19/24 16:53 clindamycin AdvReac Severe Nausea Verified 06/19/24 16:53 meclizine AdvReac Severe Dizziness Verified 06/19/24 16:53 silver (From Tegaderm AG AdvReac Severe Rash Verified 06/19/24 16:53 Mesh) fentanyl AdvReac Intermediate Tachycardia Verified 06/19/24 16:53 codeine AdvReac Nausea Verified 06/19/24 16:53 gabapentin AdvReac Dizziness Verified 06/19/24 16:53 lorazepam AdvReac Dizziness Verified 06/19/24 16:53 CC HPI Chief Complaint Chief Complaint: Acute on chronic pain; depression; anxiety; Met Breast CA; septic arthritis History Obtained From Records Reviewed: hospital History obtained from: patient History of Present Illness HPI: This is a 69-year-old woman I am well familiar with from seeing in the outpatient setting, with a diagnosis of recurrent metastatic breast cancer to the bone and liver mets. She has been on multiple treatments, most recently on Enhertu, but had taken a break to be able to go on a cruise and unfortunately on return was diagnosed with COVID. This is her second prolonged hospitalization, her first was at [facility] 04/10 to 05/07/2024 well was getting worked up for discitis which never grew any positive organisms, She has presented with septic arthritis, requiring incision and drainage, and receiving IV Antibiotics. She still has not grown out any thing on her cultures, so is quite exasperated by the whole process. And is going to require transition to a another setting. Her anxiety and distressed regarding this, is mostly centered around her frustration with the situation, as well as delaying yet further her chemotherapy. She is trying to "make sense" of what is going on, and why this happened. Given this is her second Hospitalization which is going to end up being more prolonged. I am meeting with patient by her request, reviewing her story, but also to address her anxiety, depression and pain management. Patient has been using IV Dilaudid, she feels this works quicker and gives her better relief, she is quite anxious about having to ask for her medications, waiting for it to come and then waiting for it to work as far as her orals. Patient has been on oral hydromorphone and has used appropriately for several months now, awaiting addressing her back pain. Unfortunately she missed her appointment given her hospitalization, and has had to reschedule this several times, she is hoping to get some relief. She is also still feeling distressed regarding the delay in getting her pregabalin and sertraline. Palliative Care Performance Status Performance status: Patient has had a decline in functional status, limited by weakness, neuropathy and pain. She is trying to walk around and stay active. Palliative Care Discussion: Discussion continues regarding patient's current status, the telling of her story and journey, and concerns and fears. [facility], she is awaiting further conversation with Dr. Ronquillo. She is trying to make sense and come to terms with her current situation. She is worried that she is getting antibiotics she does not need, but also reviewed the need to follow best practice and guidelines though lack of cultures. Patient does understand the seriousness of her illness and the palliative intent of her treatment, her goals have been to focus on quality as well as quantity. She does have her sister in [place], whom she speaks with on a regular basis for support. She does have fluctuating mood, feels like she is very discouraged, but managing. [facility] Active Problems All Active Problems (Updated 06/25/24 @ 17:46 by Zandra Barker [facility]) Acute exacerbation of chronic low back pain (Acute) Withdrawal syndrome (Acute) Cellulitis (Acute) Septic arthritis (Acute) COVID-19 (Acute) DVT of right axillary vein, chronic (Acute) Anorexia (Acute) Lumbar radiculopathy (Acute) Acute dehydration (Acute) Hypotension (Acute) Muscle weakness (Acute) Depression (Acute) Rash and other nonspecific skin eruption (Acute) Secondary malignant neoplasm of bone (Acute) Radiological procedure and radiotherapy as the cause of abnormal reaction of the patient, or of later complication, without mention of misadventure at the time of the procedure (Acute) Non-pressure chronic ulcer of other part of left foot limited to breakdown of skin (Acute) Anxiety and depression (Acute) Non-pressure chronic ulcer of other part of right foot with fat layer exposed (Acute) Acute low back pain (Acute) Pressure ulcer of toe of right foot, unstageable (Acute) Pulmonary embolus, left (Acute) Arthritis of left hip (Acute) Arthritis of knee, right (Acute) History of bisphosphonate therapy (Acute) HER2-positive carcinoma of left breast (Acute) Breast cancer metastasized to pelvis (Acute) Adenocarcinoma of left breast metastatic to liver (Acute) Adenocarcinoma of left breast (Acute) Compression fracture of L2 vertebra (Acute) Sigmoid diverticulosis (Acute 06/19/20) Seborrheic dermatitis (Acute 01/27/10) Paroxysmal atrial flutter (Acute 09/13/23) Onychomycosis of multiple toenails with type 2 diabetes mellitus (Acute 11/07/20) Obstructive sleep apnea (Acute 09/27/06) Non-alcoholic fatty liver disease (Acute 10/05/21) Major depressive disorder, recurrent episode, moderate (Acute 07/04/06) Hypothyroidism (Acute 03/15/21) Mixed hyperlipidemia (Acute 04/11/09) Gustatory rhinitis (Acute 07/07/23) Type 2 diabetes mellitus with peripheral neuropathy (Acute 04/11/05) Asymptomatic cholelithiasis (Acute 10/05/21) Allergic contact dermatitis due to adhesives (Acute 12/25/18) Essential hypertension (Acute) Supraventricular tachycardia (Acute) Healthcare maintenance (Acute) Encounter for chemotherapy management (Acute) Thrombosis due to vascular catheter (Acute) Chemotherapy-induced neuropathy (Acute) Secondary malignant neoplasm of bone (Acute) Breast cancer, left (Acute) Type 2 diabetes mellitus with other skin ulcer (Acute) Non-pressure chronic ulcer of other part of left foot with fat layer exposed (Acute) Soft tissue radionecrosis (Acute) Ulcer of chest wall with fat layer exposed (Acute) Chronic osteomyelitis of right foot (Acute) Non-pressure chronic ulcer of right heel and midfoot with fat layer exposed (Acute) Atopic dermatitis (Acute) Metastatic breast cancer (Acute) Renal artery aneurysm (Chronic) Insomnia (Chronic) Immunocompromised state due to drug therapy (Chronic) Chemotherapy induced diarrhea (Acute) Medical History Medical History Pain in throat Right rotator cuff tear Neutropenic fever UTI (urinary tract infection) Left leg DVT 01/2020 w/ right THR Epistaxis, recurrent (06/02/23) Community acquired pneumonia (06/12/20) Acute COVID-19 (06/16/23) Surgical History Surgical History H/O kyphoplasty 10/2023, L2 compression fracture History of total left knee replacement 04/2023 History of insertion of central venous access port 12/2021, right IJ History of liver biopsy 11/2021, metastatic breast cancer H/O skin graft 02/2020, 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 S/P total right hip arthroplasty 01/2020 H/O mastectomy 10/2018, Bilateral, modified radical on left + simple on right (no malignancy) H/O chest tube placement 2018, following thoroscopy for lung lesions, needed for bleeding w/ procedure History of insertion of central venous access port 06/2018 w/ revision in 07/2018, removed in 09/2018 due to extrusion Lumbar canal stenosis 2016, decompression surgery H/O colonoscopy 10/2007, normal S/P lumbar laminectomy 1994, L4-5 w/ spinal cord injury H/O varicose vein stripping 1993, bilateral H/O tubal ligation 05/1992, S/P dilatation and curettage 1988, for miscarriage Hx of tonsillectomy Family History Family History Father Dementia Brain tumor Mother CAD (coronary artery disease) Thyroid disorder Diabetes Social History Social History Smoking Status: Never smoker Second hand tobacco smoke exposure: No Do you dip or chew tobacco?: No Do you vape?: No Living arrangement: At home Marital Status: Living Condition: With family Support Person: Yes Relationship: Level: Independent Home Mobility Equipment: Cane Do you feel safe in your home environment?: Yes Suffered physical, verbal, emotional, or financial abuse?: No History of Abuse: No ETOH Use: None Substance Use: denies use Are you sexually active?: No 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[employer], [employer], 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 Service: No POLST Patient has POLST: No POLST Status: Full Code Review of Systems Status of ROS: 10 or more systems reviewed and unremarkable except as noted in history and below Constitutional Reports: Weakness and Change in sleep pattern Cardiovascular Reports: shortness of breath with exertion Respiratory Reports: Shortness of breath Musculoskeletal Reports: Back pain, Extremity pain (Right arm and hand), Extremity swelling, Joint pain and Muscle weakness Neurological Reports: Weakness in extremities and Numbness in extremities Psychiatric Reports: Depression, Mood swings, Change in sleep pattern and Irritability Exam Exam Patient is sitting at desk, affect is flat, does easily engaged with S[employer]IOR [employer] CONSULTANT. Does demonstrate some pain behaviors with shifting, repositioning, and repositioning her arm. She does not appear in acute distress, does appear fatigued. Impression Impression: This is a 69-year-old woman who has metastatic breast cancer with mets to the bone and liver. She is currently on Enhertu, unfortunately has had treatment delayed secondary to her hospitalization and need for further treatment of her septic arthritis and extended antibiotics. Patient needing a more doable pain management plan for transition to another setting, as well as psychosocial support provided. Palliative Care will continue to follow outpatient. Assessment & Plan Assessment & Plan (1) Acute exacerbation of chronic low back pain: Assessment: Patient's pain is actually multifactorial, not only including her low back pain, but also her severe peripheral neuropathy, and her acute pain of her right wrist. Patient has been using IV Dilaudid, has been long-term on hydromorphone 2 mg [id number], patient is unable to tolerate adhesive of fentanyl patch, as well as morphine. Code(s): M54.50 - Low back pain, unspecified; G89.29 - Other chronic pain Plan: Patient is not opioid abdifatah, would recommend patient scheduled hydromorphone 2 mg every 4 hours [id number], allowing for steady state, as well as decreased anxiety regarding escalating pain. Patient was likely will have better pain control. Would recommend this as transition plan as well, this is mirroring what she has done at home. Particularly in the setting of acute and now exacerbated back pain. (2) Anxiety and depression: Assessment: Patient is appropriately discouraged, has perceived a difficult journey and ho spitalization. Is frustrated with no "[id number]" answers, as well as delay in further treatment. Does feel like she is coping better today, but "is not happy". Code(s): F41.9 - Anxiety disorder, unspecified; F32.A - Depression, unspecified Plan: This palliative care CERTIFIED SURGICAL TECHNICIAN has long-term relationship with patient, able to sit with her and her story, psychosocial support and counseling for adjustment to illness provided. (3) Metastatic breast cancer: Assessment: Patient unfortunately has had several delays in her treatment of her Enhertu, appropriately anxious regarding has been an effective treatment for her, worried about progressive disease. Patient does have understanding of her treatment as of palliative intent. Is feeling anxious about further delay. Code(s): C50.919 - Malignant neoplasm of unspecified site of unspecified female breast Plan Will continue to follow patient outpatient. Medications: Discontinued nirmatrelvir-ritonavir 300 mg (150 mg x 2)-100 mg Discontinued Reason: Completed therapy One dose pack; one dose BID x 5 days 1 ea 0RF
[2024-06-25] MEDS: HYDROmorphone 2 MG TABLET PO SCH (16:03)
--- NOTE | 2024-06-25 18:35 | POST OP PROGRESS NOTE ---
Subjective General Admit Date: 06/21/24 Procedure Date: 07/28/18 Post Op Days: 2158 Other Other Information/Narrative: 69F s/p RIGHT wrist I&D on 06/20/24 for suspected septic arthritis. S: Reports that her right upper extremity pain is much improved. Continues to complain of mild swelling in the right hand. Denies pain in the right elbow. Denies F/C/NS. Ortho Surgical Progress Note Problem List Problem List: 69F s/p RIGHT wrist I&D on 06/20/24 for suspected septic arthritis. Feeling much better compared to preop. No systemic symptoms. She will be transferred to a different facility for continued IV antibiotics tomorrow -Sutures to be removed on 07/11/24 -JOSE LUIS MEREDITH -Encouraged to work on ROM -IV antibiotics -Please reconsult Ortho if there are any further concerns Trent Lopez MD Exam Exam RIGHT wrist: Splint in place this was taken down. Incision is C/D/I. Mild swelling about the fingers Unable to express any drainage from the incision site. No TTP about elbow, minimal elbow pain with full flex/ext/pro/supp. SILT R/U/M/Ax periodically has electrical shock sensation up the arm when sensation is checked on the thumb and middle finger Fires EPL/EDC/FPL/IO/WE/WF/Biceps/Triceps/Delt 2+ Radial pulse, brisk cap refil to all digits IMAGING: RIGHT elbow xrays: Possible radial head fracture seen in one view. RIGHT wrist radiographs: No fractures or dislocations. There is degeneration and calcification within the wrist.
[2024-06-26] MEDS ORDERED: hydrALAZINE INJ 20 MG/ML VIAL IVP PRN (02:50)
[2024-06-26 04:08] LABS: ADENOVIRUS F 40/41 Not Detected (Not Detected); ASTROVIRUS Not Detected (Not Detected); C DIFFICILE TOXIN A/B Not Detected (Not Detected); CAMPYLOBACTER Not Detected (Not Detected); CRYPTOSPORIDIUM Not Detected (Not Detected); CYCLOSPORA CAYETANENSIS Not Detected (Not Detected); ENTAMOEBA HISTOLYTICA Not Detected (Not Detected); ENTEROAGGREGATIVE E COLI Not Detected (Not Detected); ENTEROPATHOGENIC E COLI Not Detected (Not Detected); ENTEROTOXIGENIC E COLI Not Detected (Not Detected); GIARDIA LAMBLIA Not Detected (Not Detected); NOROVIRUS GI/GII Not Detected (Not Detected); PLESIOMONAS SHIGELLOIDES Not Detected (Not Detected); ROTAVIRUS A Not Detected (Not Detected); SALMONELLA Not Detected (Not Detected); SAPOVIRUS Not Detected (Not Detected); SHIGA-TOXIN-PRODUCING E COLI Not Detected (Not Detected); SHIGELLA/ENTEROINVASIVE E COLI Not Detected (Not Detected); VIBRIO Not Detected (Not Detected); VIBRIO CHOLERAE Not Detected (Not Detected); YERSINIA ENTEROCOLITICA Not Detected (Not Detected)
[2024-06-26 06:14] LABS: HGB - HEMOGLOBIN 10.8 g/dL (12.0-16.0); MEAN CORPUSCULAR HEMOGLOBIN 31.1 pg (27.0-31.0); MEAN CORPUSCULAR HGB CONC 32.7 g/dL (32.0-36.0); MEAN CORPUSCULAR VOLUME 95.1 fL (81.0-99.0); MEAN PLATELET VOLUME 11.2 fL (7.9-10.8); RED BLOOD COUNT 3.47 10^6/uL (4.20-5.40); RED CELL DISTRIBUTION WIDTH 14.2 % (12.0-15.0); WHITE BLOOD COUNT 3.4 x10^3/uL (4.8-10.8)
[2024-06-26 06:30] LABS: MAGNESIUM 1.4 mg/dL (1.7-2.3)
[2024-06-26 06:35] LABS: CALCIUM 8.7 mg/dL (8.5-10.3); CREATININE 0.5 mg/dL (0.6-1.3); POTASSIUM 3.6 mmol/L (3.5-4.5)
[2024-06-26] MEDS: carvediloL 3.125 MG TABLET PO SCH (09:44)
[2024-06-26] MEDS: LOPERAMIDE 2 MG CAPSULE PO PRN (11:15)
--- NOTE | 2024-06-26 16:18 | Discharge Summary ---
"Discharge Summary Admit Date: 06/20/24 Discharge Date: 06/26/24 Discharging Provider: Dr Nico Prado Code Status: Attempt Resuscitation DIAGNOSES Admission Diagnoses: Septic arthritis COVID-19 Pulmonary embolus left Type II DM with peripheral neuropathy Hypothyroidism Paroxysmal atrial flutter Major depressive disorder recurrent episode Adenocarcinoma of left breast Discharge Diagnoses with Status of Each Condition: Septic arthritis - improved COVID-19 - Resolved Pulmonary embolus left - stable Type II DM with peripheral neuropathy - stable Hypothyroidism - stable Paroxysmal atrial flutter - stable Major depressive disorder recurrent episode - stable Adenocarcinoma of left breast HPI History of Present Illness: Patient is a 69 year old patient 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 She said she woke up on Tuesday and had some pain in her right elbow. She found that it spread down her right arm all the way to her wrist over the next few days. She describes the pain as sharp, and radiating downwards. She denies any fevers or chills. She has been fatigued at home. She has many abrasions noted on her upper extremities; she said it's from itching due to side effects of chemotherapy. 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 She also has a hammer toe that was infected with MRSA previously. She has no pain or swelling in any other joints. After her washout, the pain in the elbow improved. In the ER, her white count was within normal limits at 8.5. BMP was largely unremarkable. CRP was elevated at 12.5. Of note, she tested positive for COVID-19 on 06/13/2024. Elbow x-ray shows minimally displaced radial head irregularity suspicious for nondisplaced fracture. Wrist x-ray shows soft tissue swelling. Venous duplex shows no DVT. Orthopedic surgery was consulted. Initially it was just for the elbow, and they were advised to place a splint. They examined the patient's wrist, there were concerns for septic arthritis. Patient was taken for a I&D of the abscess of the wrist. Purulence was noted in the joint. Joint was washed out, patient was started on IV vancomycin and cefepime, admitted for septic arthritis. CONSULTS | PROCEDURES Consultations: Orthopedic surgery- Dr. Trent Lopez Procedures: Right wrist incision and drainage HOSPITAL COURSE Hospital Course: Patient was taken to the OR on 06/20/2024 for incision and drainage of right wrist at which point purulence was expressed and the OR And cultures were sent. She was started on cefepime and vancomycin. Patient will need 14 days of IV antibiotics with an additional 7 days of oral antibiotics. The remainder of her chronic conditions remained stable. Given the patient is immune compromised and the duration of IV antibiotics she was discharged to the swing bed so that she may continue to receive medical care including IV antibiotics.She will need suture removal on 07/11/2024. ALLERGIES Allergies Allergy/AdvReac Type Severity Reaction Status Date / Time adhesive Allergy Severe Rash Verified 06/19/24 16:53 anastrozole Allergy Dizziness Verified 06/19/24 16:53 hydroxyzine Allergy Itching Verified 06/19/24 16:53 clindamycin AdvReac Severe Nausea Verified 06/19/24 16:53 meclizine AdvReac Severe Dizziness Verified 06/19/24 16:53 silver (From Tegaderm AG AdvReac Severe Rash Verified 06/19/24 16:53 Mesh) fentanyl AdvReac Intermediate Tachycardia Verified 06/19/24 16:53 codeine AdvReac Nausea Verified 06/19/24 16:53 gabapentin AdvReac Dizziness Verified 06/19/24 16:53 lorazepam AdvReac Dizziness Verified 06/19/24 16:53 MEDICATIONS Ambulatory Orders Medication Instructions Recorded Confirmed dulaglutide 0.75 mg/0.5 mL 0.75 mg SQ UD 11/10/21 06/21/24 subcutaneous pen injector (Trulicity) loperamide 2 mg capsule 2 mg PO ONCE PRN Diarrhea 12/24/21 06/21/24 Permanent Disabled Placard 02/03/24 05/16/24 diphenoxylate-atropine 2.5 See Rx Instructions .Route QID 02/03/24 06/21/24 mg-0.025 mg tablet ondansetron 8 mg disintegrating 8 mg PO TID 02/03/24 06/21/24 tablet prochlorperazine maleate 10 mg 10 mg PO Q6H PRN nausea and 02/03/24 06/21/24 tablet (Compazine) vomiting sertraline 100 mg tablet 100 mg PO DAILY 02/03/24 06/21/24 tamoxifen 20 mg tablet 20 mg PO QDAY 02/03/24 06/21/24 levothyroxine 25 mcg tablet See Rx Instructions .Route 03/06/24 06/21/24 .COMPLEX #90 tabs rosuvastatin 20 mg tablet See Rx Instructions .Route 03/06/24 06/21/24 .COMPLEX #90 tabs sertraline 50 mg tablet 50 mg PO QDAY #90 tabs 03/09/24 06/21/24 dexamethasone 2 mg tablet 2 mg PO QDAY 03/27/24 06/21/24 metformin 500 mg tablet 500 mg PO BID #180 tabs 04/13/24 06/21/24 apixaban 2.5 mg tablet (Eliquis) 2.5 mg PO BID #60 tabs 04/20/24 06/21/24 hydromorphone 2 mg tablet 2 - 4 mg (1 - 2 x 2 mg) PO Q3H PRN 04/25/24 06/21/24 pain #100 tabs pregabalin 150 mg capsule 150 mg PO TID 05/09/24 06/21/24 celecoxib 100 mg capsule 100 mg PO BID #180 caps 05/16/24 06/21/24 carvedilol 3.125 mg tablet 3.125 mg PO BID 05/17/24 06/21/24 magnesium oxide 500 mg capsule 500 mg PO QDAY low magnesium #6 05/24/24 06/21/24 caps olanzapine 2.5 mg tablet (Zyprexa) 2.5 mg PO QPM 06/21/24 06/21/24 PHYSICAL EXAM AT DISCHARGE General Appearance: positive No acute distress Cardiovascular: positive Regular rate & rhythm, No murmur and No gallop Abdomen: positive Non-tender Skin: positive Color nml Extremities: positive Other Neurologic/Psychiatric: positive Oriented x3 and CN's nml (2-12) LABS 06/26/24 05:00 06/26/24 05:00 DIAGNOSTIC IMAGING Diagnostic Imaging Results: Final report reviewed SEPSIS Current Stage of Sepsis: Ruled out FOLLOW UP Follow Up: Patient will follow-up with oncology TIME SPENT Time Spent in Discharge (Minutes): 36 Discharge Plan Discharge Patient Disposition: 61 Swing Bed DC/Xfer Condition: Good Medically Cleared Date:: 06/26/24 Activity Restrictions/Additional Instructions: Irrigation and Debridement of the Right Wrist with Dr Lopez at [facility] on 06/20/24. ACTIVITY INSTRUCTIONS - You are non weight bearing to the right upper extremity with do not push, pull or weight bear with the right hand until follow up. - You must be cleared by your orthopedic provider before operating a vehicle. DRESSING CARE - You have a bulk dressing with a plaster splint that is secured with an Antonio bandage. Leave the dressing in place until your follow up in the orthopedic clinic. - Keep extremity elevated to the level of the heart to reduce swelling. You can use ice on top of the splint to reduce pain and swelling of the extremity. - If you notice fever, chills, redness, excessive drainage or bleeding, a sharp increase in pain that persists after taking pain medication, pain in your calf muscles, chest pain or trouble breathing please unwrap the dressing and investigate. Then call the office with findings for further guidance. If it is after regular clinic hours, please seek care in the emergency department. - If you need to take a shower cover the dressing in a garbage bag and secure it to keep the dressing dry and intact. - In the rare case of any severe chest pain and trouble breathing, seek immediate care, do not delay for a call to the clinic. POST-OPERATIVE INSTRUCTIONS - Ice on top of the splint for 15 minutes if needed for control of pain and swelling - You may resume your normal diet if there is no nausea or vomiting. You may want to avoid spicy, greasy, or heavy foods today to minimize gas. - If nausea or vomiting occurs, don't eat or drink anything for one hour. Then start drinking small amounts of clear liquids. Later, add crackers, gradually building up to your usual diet. - Follow up with the orthopedic clinic in 2 weeks. Call our office at [phone] with any concerns - Continue your Eliquis which will also act as prevention for blood clots Print Language: Afghan"
[2024-06-26 16:32] VITALS: BP 172/98; TEMP 98.1; O2SAT 95
[2024-06-26] MEDS: PROCHLORPERAZINE 5 MG TABLET PO PRN (17:44)
[2024-06-26] MEDS ORDERED: metFORMIN 500 MG TABLET PO SCH (18:01)
[2024-06-28] MEDS ORDERED: TAMOXIFEN 20 MG PO SCH (09:00)
== END 2024-06-26 19:32 | disposition swing bed (61) | DRG 548 ==
LOC: ED 16:43 → SDS 06-20 09:54 → MS2 06-20 09:54 → SDS 06-20 11:30 → MS2 06-23 00:41
PROVIDERS: ADMIT Physician Assistant Surgical; ATTEND Physician Assistant Surgical

== ENCOUNTER 2024-07-05 15:20 | Inpatient (IN) ==
--- NOTE | 2024-07-05 17:38 | ED Physician Documentation ---
History of Present Illness Stated complaint Stated Complaint: SOA, LETHARGIC, HOT/COLD SWEATS Chief complaint Chief Complaint: General Additonal information Additional information: 69-year-old female presents emerged department for increased shortness of breath generalized malaise and fatigue. Patient was just recently here for about 2 weeks and was discharged on 07/03 for Right wrist septic Arthritis. Patient also has history of left breast adenocarcinoma. Patient says that starting about yesterday she started feeling significant malaise increased shortness of breath no nausea no vomiting with persistent headache unsure if she is having fevers or chills at home. Meds/Allgy Home Medications Ambulatory Orders Medication Instructions Recorded Confirmed dulaglutide 0.75 mg/0.5 mL 0.75 mg SQ UD 11/10/21 06/29/24 subcutaneous pen injector (Trulicity) loperamide 2 mg capsule 2 mg PO ONCE PRN Diarrhea 12/24/21 06/29/24 Permanent Disabled Placard 02/03/24 05/16/24 diphenoxylate-atropine 2.5 See Rx Instructions .Route QID 02/03/24 06/29/24 mg-0.025 mg tablet ondansetron 8 mg disintegrating 8 mg PO TID 02/03/24 06/29/24 tablet prochlorperazine maleate 10 mg 10 mg PO Q6H PRN nausea and 02/03/24 06/29/24 tablet (Compazine) vomiting sertraline 100 mg tablet 100 mg PO DAILY 02/03/24 06/29/24 tamoxifen 20 mg tablet 20 mg PO QDAY 02/03/24 06/29/24 levothyroxine 25 mcg tablet See Rx Instructions .Route 03/06/24 06/29/24 .COMPLEX #90 tabs rosuvastatin 20 mg tablet See Rx Instructions .Route 03/06/24 06/29/24 .COMPLEX #90 tabs sertraline 50 mg tablet 50 mg PO QDAY #90 tabs 03/09/24 06/29/24 metformin 500 mg tablet 500 mg PO BID #180 tabs 04/13/24 06/29/24 apixaban 2.5 mg tablet (Eliquis) 2.5 mg PO BID #60 tabs 04/20/24 06/29/24 hydromorphone 2 mg tablet 2 - 4 mg (1 - 2 x 2 mg) PO Q3H PRN 04/25/24 06/29/24 pain #100 tabs pregabalin 150 mg capsule 150 mg PO TID 05/09/24 06/29/24 celecoxib 100 mg capsule 100 mg PO BID #180 caps 05/16/24 06/29/24 carvedilol 3.125 mg tablet 3.125 mg PO BID 05/17/24 06/29/24 magnesium oxide 500 mg capsule 500 mg PO QDAY low magnesium #6 05/24/24 06/29/24 caps olanzapine 2.5 mg tablet (Zyprexa) 2.5 mg PO QPM 06/21/24 06/29/24 acetaminophen 500 mg tablet 1,000 mg (2 x 500 mg) PO Q6HR PRN 07/03/24 Pain 1-4 #90 tabs clotrimazole-betamethasone 1 1 applic topical BID #45 grams 07/03/24 %-0.05 % topical cream sulfamethoxazole 800 1 tab PO BID #14 tabs 07/03/24 mg-trimethoprim 160 mg tablet (Bactrim DS) Allergies Allergies Allergy/AdvReac Type Severity Reaction Status Date / Time adhesive Allergy Severe Rash Verified 07/05/24 15:24 anastrozole Allergy Dizziness Verified 07/05/24 15:24 hydroxyzine Allergy Itching Verified 07/05/24 15:24 clindamycin AdvReac Severe Nausea Verified 07/05/24 15:24 meclizine AdvReac Severe Dizziness Verified 07/05/24 15:24 silver (From Tegaderm AG AdvReac Severe Rash Verified 07/05/24 15:24 Mesh) fentanyl AdvReac Intermediate Tachycardia Verified 07/05/24 15:24 codeine AdvReac Nausea Verified 07/05/24 15:24 gabapentin AdvReac Dizziness Verified 07/05/24 15:24 lorazepam AdvReac Dizziness Verified 07/05/24 15:24 PFSH Active Problems All Active Problems (Updated 07/05/24 @ 19:54 by Radha Coronado DNP) Hypoxic (Acute) Pneumonia (Acute) Cellulitis (Acute) Septic arthritis (Acute) Secondary malignant neoplasm of bone (Acute) DVT of right axillary vein, chronic (Acute) Anorexia (Acute) Lumbar radiculopathy (Acute) Acute dehydration (Acute) Hypotension (Acute) Muscle weakness (Acute) Depression (Acute) Rash and other nonspecific skin eruption (Acute) Secondary malignant neoplasm of bone (Acute) Thrombosis due to vascular catheter (Acute) Healthcare maintenance (Acute) Ulcer of chest wall with fat layer exposed (Acute) Radiological procedure and radiotherapy as the cause of abnormal reaction of the patient, or of later complication, without mention of misadventure at the time of the procedure (Acute) Soft tissue radionecrosis (Acute) Non-pressure chronic ulcer of other part of left foot limited to breakdown of skin (Acute) Non-pressure chronic ulcer of other part of right foot with fat layer exposed (Acute) Anxiety and depression (Acute) Acute low back pain (Acute) Pressure ulcer of toe of right foot, unstageable (Acute) Pulmonary embolus, left (Acute) Arthritis of left hip (Acute) Arthritis of knee, right (Acute) Compression fracture of L2 vertebra (Acute) Type 2 diabetes mellitus with peripheral neuropathy (Acute 04/11/05) Type 2 diabetes mellitus with other skin ulcer (Acute) Non-pressure chronic ulcer of right heel and midfoot with fat layer exposed (Acute) Non-pressure chronic ulcer of other part of left foot with fat layer exposed (Acute) Chronic osteomyelitis of right foot (Acute) Onychomycosis of multiple toenails with type 2 diabetes mellitus (Acute 11/07/20) Non-alcoholic fatty liver disease (Acute 10/05/21) Asymptomatic cholelithiasis (Acute 10/05/21) Essential hypertension (Acute) Supraventricular tachycardia (Acute) Renal artery aneurysm (Chronic) Mixed hyperlipidemia (Acute 04/11/09) Hypothyroidism (Acute 03/15/21) Paroxysmal atrial flutter (Acute 09/13/23) Obstructive sleep apnea (Acute 09/27/06) Sigmoid diverticulosis (Acute 06/19/20) Seborrheic dermatitis (Acute 01/27/10) Atopic dermatitis (Acute) Allergic contact dermatitis due to adhesives (Acute 12/25/18) Major depressive disorder, recurrent episode, moderate (Acute 07/04/06) Insomnia (Chronic) Gustatory rhinitis (Acute 07/07/23) Encounter for chemotherapy management (Acute) Adenocarcinoma of left breast (Acute) HER2-positive carcinoma of left breast (Acute) Adenocarcinoma of left breast metastatic to liver (Acute) Breast cancer metastasized to pelvis (Acute) History of bisphosphonate therapy (Acute) Chemotherapy-induced neuropathy (Acute) Breast cancer, left (Acute) Metastatic breast cancer (Acute) Immunocompromised state due to drug therapy (Chronic) Chemotherapy induced diarrhea (Acute) Medical History Medical History Pain in throat Right rotator cuff tear Neutropenic fever UTI (urinary tract infection) Left leg DVT 01/2020 w/ right THR Epistaxis, recurrent (06/02/23) Community acquired pneumonia (06/12/20) Acute COVID-19 (06/16/23) Surgical History Surgical History H/O kyphoplasty 10/2023, L2 compression fracture History of total left knee replacement 04/2023 History of insertion of central venous access port 12/2021, right IJ History of liver biopsy 11/2021, metastatic breast cancer H/O skin graft 02/2020, 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 S/P total right hip arthroplasty 01/2020 H/O mastectomy 10/2018, Bilateral, modified radical on left + simple on right (no malignancy) H/O chest tube placement 2018, following thoroscopy for lung lesions, needed for bleeding w/ procedure History of insertion of central venous access port 06/2018 w/ revision in 07/2018, removed in 09/2018 due to extrusion Lumbar canal stenosis 2016, decompression surgery H/O colonoscopy 10/2007, normal S/P lumbar laminectomy 1994, L4-5 w/ spinal cord injury H/O varicose vein stripping 1993, bilateral H/O tubal ligation 05/1992, S/P dilatation and curettage 1988, for miscarriage Hx of tonsillectomy Family History Family History Father Dementia Brain tumor Mother CAD (coronary artery disease) Thyroid disorder Diabetes Social History Social History Smoking Status: Never smoker Second hand tobacco smoke exposure: No Do you dip or chew tobacco?: No Do you vape?: No Living arrangement: At home Marital Status: Living Condition: With family More Information: 2 children Support Person: Yes Relationship: Level: Independent Do you feel safe in your home environment?: Yes Suffered physical, verbal, emotional, or financial abuse?: No History of Abuse: No ETOH Use: None Substance Use: denies use Are you sexually active?: No 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[employer], 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 Service: No POLST Patient has POLST: No POLST Status: Full Code Exam Constitutional normal general appearance, no apparent distress, abnormal body habitus (obese), no limitations and alert HENMT normocephalic and head/scalp atraumatic Eyes PERRL Chest inspection of chest normal and palpation of chest normal Respiratory breath sounds equal bilaterally and normal respiratory effort Diminished breath sounds bilaterally Cardiovascular normal heart rate noted and regular rhythm noted Gastrointestinal abdomen normal to inspection Skin skin color normal Results Vitals Vitals: Vital Signs - 24 hr 07/05/24 15:25 07/05/24 16:59 07/05/24 19:16 Temperature 36.9 C 36.7 C Temperature Source Oral Oral Pulse Rate 90 73 74 Respiratory Rate 24 16 16 Blood Pressure 142/78 H 131/65 H 138/74 H O2 Saturation 97 94 94 O2 Source Room air Room air Room air Pain Intensity 5 7 Oxygen O2 Source Room air EKG (time done) 1617: EKG releavant findings:: EKG personally interpreted by author of this note. Relevant findings are: Rate: Rate (enter#) (74) Rhythm: NSR and Other (Ventricular premature complexes) [place]: Other (Left atrial enlargement) Intervals: Normal IA Ischemia: Normal ST segments Computer interpretation: Agree with computer Labs Labs: Laboratory Tests 07/05/24 07/05/24 07/05/24 18:00 18:49 18:49 WBC 4.5 L RBC 4.23 Hgb 12.9 Hct 39.9 MCV 94.3 MCH 30.5 MCHC 32.3 RDW 14.9 Plt Count 153 MPV 11.7 H Neut # (Auto) 2.6 Lymph # (Auto) 0.9 L [place] # (Auto) 0.9 Eos # (Auto) 0.0 Baso # (Auto) 0.1 Absolute Nucleated RBC 0.00 Nucleated RBC % 0.0 Sodium 143 Potassium 4.0 Chloride 108 Carbon Dioxide 26 Anion Gap 9.0 BUN 25 H Creatinine 1.2 Estimated GFR (MDRD) 45 L Glucose 88 Lactic Acid 1.2 Calcium 9.4 Total Bilirubin 0.8 AST 24 ALT 11 Alkaline Phosphatase 62 Total Protein 6.7 Albumin 3.7 Globulin 3.0 Albumin/Globulin Ratio 1.2 Urine Color DARK YELLOW Urine Clarity HAZY Urine pH 6.0 Ur Specific [place] 1.020 Urine Protein 30 H Urine Glucose (UA) NEGATIVE Urine Ketones TRACE Urine Occult Blood NEGATIVE Urine Nitrite NEGATIVE Urine Bilirubin MODERATE H Urine Urobilinogen 0.2 (NORMAL) Ur Leukocyte Esterase NEGATIVE Urine RBC 0-5 Urine WBC 6-10 H Ur Squamous Epith Cells MANY Squamous H Urine Bacteria Rare Urine Casts 3-5 Hyaline Casts 6-10 WBC Casts Urine Culture Comments NOT INDICATED Nasal Adenovirus (PCR) NOT DETECTED Nasal B. parapertussis DNA (PCR) NOT DETECTED Nasal Coronavir 229E PCR NOT DETECTED Nasal Coronavir HKU1 PCR NOT DETECTED Nasal Coronavir NL63 PCR NOT DETECTED Nasal Coronavir OC43 PCR NOT DETECTED Nasal Enterovir/Rhinovir PCR NOT DETECTED Nasal Influenza B PCR NOT DETECTED Nasal Influenza A PCR NOT DETECTED Nasal Parainfluen 1 PCR NOT DETECTED Nasal Parainfluen 2 PCR NOT DETECTED Nasal Parainfluen 3 PCR NOT DETECTED Nasal Parainfluen 4 PCR NOT DETECTED Nasal RSV (PCR) NOT DETECTED Nasal B.pertussis DNA PCR NOT DETECTED Nasal C.pneumoniae (PCR) NOT DETECTED Luis Human Metapneumo PCR NOT DETECTED Nasal M.pneumoniae (PCR) NOT DETECTED Nasal SARS-CoV-2 (PCR) NOT DETECTED Rads (name of study) CT angio chest with: Relevant Findings:: Final report received and EMP independent interpretation of test Interpretation: IMPRESSION: No acute pulmonary embolism. Likely infectious/inflammatory pulmonary nodules are present most significant in the right upper lobe. Focal lingular atelectasis and bronchiectasis also again seen. Surveillance imaging is recommended for these findings. Sclerotic C7 appearance of the vertebral body again seen. Cholelithiasis. Chest x-ray: Relevant Findings:: Final report received and EMP independent interpre tation of test Interpretation: FINDINGS AND IMPRESSION: Right portacatheter in place. On this single view study, no dense airspace disease. No pleural effusions. Normal heart size. Degenerative osseous changes PD Medical Decision Making ED course ED course: 69-year-old female presents emergency department for generalized malaise body aches shortness of breath. Differentials include but not limited to septic arthritis, pulmonary embolism, pneumonia. Labs are complete for further evaluation she has ongoing chronic leukopenia, WBC 4.5 no anemia. CMP also complete overall within normal limits. Respiratory swab complete negative for all viral symptoms 2 sets of blood cultures were collected because patient was just recently here for sepsis her right wrist actually looks quite well there is no erythema to incision it is not warm to the touch no signs or symptoms of infection on right wrist. Urinalysis does not have any leukocytes or nitrites many squamous cells and some WBCs. CT angio chest was complete for rule out of possible pulmonary embolism given that patient has been intermittently hypoxic and increased shortness of breath with history of breast cancer she is anticoagulated on Eliquis. CT angio chest does not show any pulmonary embolism confirms likely infectious versus inflammatory pulmonary nodules most significant in the right upper lobe. We attempted to ambulate the patient her oxygen level dropped to 86% just sitting at the edge of the bed she was unable to get out of bed due to severity of the dizziness and shortness of breath. Because of this patient is not safe to return home. Will treat patient for p neumonia at this point in time she was started on IV cefepime and vancomycin to cover hospital acquired pneumonia here in the emergency department. Report given to hospitalist, Zeyad Knight NP who will further manage patient's care, great appreciate his collaboration with this patient. Discharge Plan Discharge Patient Disposition: 66 [facility] DC/Xfer Condition: Good Clinical Impression: Pneumonia, Hypoxic Prescriptions: No Action levothyroxine 25 mcg tablet See Rx Instructions .ROUTE .COMPLEX Qty: 90 3RF Dose Instruction: TAKE ONE TABLET BY MOUTH ONE TIME DAILY Rx Instructions: TAKE ONE TABLET BY MOUTH ONE TIME DAILY rosuvastatin 20 mg tablet See Rx Instructions .ROUTE .COMPLEX Qty: 90 3RF Dose Instruction: TAKE ONE TABLET BY MOUTH ONE TIME DAILY Rx Instructions: TAKE ONE TABLET BY MOUTH ONE TIME DAILY sertraline 50 mg tablet 50 mg PO QDAY Qty: 90 3RF Rx Instructions: TAKE WITH 100 MG TABLET FOR A TOTAL OF 150 MG metformin 500 mg tablet 500 mg PO BID Qty: 180 3RF Rx Instructions: TAKE ONE TABLET BY MOUTH TWICE DAILY Eliquis 2.5 mg tablet 2.5 mg PO BID Qty: 60 2RF hydromorphone 2 mg tablet 2 - 4 mg PO Q3H PRN (Reason: pain) Qty: 100 0RF Rx Instructions: Maximum 10 tablets in 24 hours sertraline 100 mg tablet 100 mg PO DAILY Rx Instructions: TAKE ONE AND A HALF TABLETS ONE TIME DAILY (TOTAL OF 150MG PER DAY) Trulicity 0.75 MG/0.5 ML pen injector 0.75 mg SQ UD Rx Instructions: Inject 0.75 mg SQ once weekly loperamide 2 MG capsule 2 mg PO ONCE MDD 8 CAPS (16 MG) PRN (Reason: Diarrhea) Patient Comments: Take 2 capsules by mouth as needed for diarrhea (at onset of severe diarrhea, then take 1 capsule after each unformed stool). Do not exceed 8 capsules per day Rx Instructions: Take 2 capsules PO at onset of severe diarrhea, then 1 capsule after each unformed stool. Do not exceed 8 capsules in 24 H. diphenoxylate-atropine 2.5-0.025 mg tablet See Rx Instructions .Route QID Rx Instructions: TAKE TWO TABLETS BY MOUTH FOUR TIMES A DAY NEEDED FOR DIARRHEA olanzapine [Zyprexa] 2.5 mg tablet 2.5 mg PO QPM Rx Instructions: 05/16 will change to nightly acetaminophen 500 mg Tablet 1,000 mg PO Q6HR PRN (Reason: Pain 1-4) Qty: 90 0RF clotrimazole-betamethasone 1-0.05 % Cream 1 applic topical BID Qty: 45 0RF sulfamethoxazole-trimethoprim [Bactrim DS] 800-160 mg tablet 1 tab PO BID Qty: 14 0RF prochlorperazine maleate [Compazine] 10 mg tablet 10 mg PO Q6H PRN (Reason: nausea and vomiting) Rx Instructions: TAKE ONE TABLET BY MOUTH EVERY SIX HOURS NEEDED DIRECTED USE OF ONDANSETRON NOT EFFECTIVE FOR NAUSEA/VOMITING (DME) Permanent Disabled Placard [facility] See Rx Instructions .Route Rx Instructions: USE ONE DEVICE DIRECTED. DISPLAY IN WINDOW OF VEHCLE. LENGTH OF NEED: 99 MONTHS. ICD-10 m70.61, m54.5 ondansetron 8 mg tablet,disintegrating 8 mg PO TID Rx Instructions: TAKE ONE TABLET ON TONGUE THREE TIMES A DAY NEEDED FOR NAUSEA tamoxifen 20 mg tablet 20 mg PO QDAY Rx Instructions: TAKE ONE TABLET BY MOUTH ONCE A DAY pregabalin 150 mg capsule 150 mg PO TID Rx Instructions: Tapering at this time celecoxib 100 mg capsule 100 mg PO BID Qty: 180 3RF Rx Instructions: TAKE ONE CAPSULE BY MOUTH TWICE A DAY NEEDED FOR KNEE ARTHRITIS PAIN carvedilol 3.125 mg tablet 3.125 mg PO BID magnesium oxide 500 mg capsule 500 mg PO QDAY MDD 1000 mg Qty: 6 1RF Print Language: Mohawk
[2024-07-05] MEDS ORDERED: iohexoL-300 100 ML VIAL ONE (17:39)
[2024-07-05 18:11] LABS: BASOPHILS # (AUTO) 0.1 10^3/uL (0.0-0.1); BASOPHILS % (AUTO) 1.1 %; EOSINOPHILS % (AUTO) 0.9 %; HCT - HEMATOCRIT 39.9 % (37.0-47.0); HGB - HEMOGLOBIN 12.9 g/dL (12.0-16.0); LYMPHOCYTES # (AUTO) 0.9 10^3/uL (1.5-3.5); LYMPHOCYTES % (AUTO) 19.9 %; MEAN CORPUSCULAR HEMOGLOBIN 30.5 pg (27.0-31.0); MEAN CORPUSCULAR HGB CONC 32.3 g/dL (32.0-36.0); MEAN CORPUSCULAR VOLUME 94.3 fL (81.0-99.0); MEAN PLATELET VOLUME 11.7 fL (7.9-10.8); MONOCYTES # (AUTO) 0.9 10^3/uL (0.0-1.0); MONOCYTES % (AUTO) 20.1 %; NEUTROPHILS # (AUTO) 2.6 10^3/uL (1.5-6.6); NEUTROPHILS % (AUTO) 57.8 %; PLT - PLATELET COUNT 153 10^3/uL (130-450); RED BLOOD COUNT 4.23 10^6/uL (4.20-5.40); RED CELL DISTRIBUTION WIDTH 14.9 % (12.0-15.0); WHITE BLOOD COUNT 4.5 x10^3/uL (4.8-10.8)
[2024-07-05 18:25] LABS: ALBUMIN 3.7 g/dL (3.2-5.5); ALBUMIN/GLOBULIN RATIO 1.2 (1.0-2.2); BILIRUBIN,TOTAL 0.8 mg/dL (0.2-1.0); CALCIUM 9.4 mg/dL (8.5-10.3); CREATININE 1.2 mg/dL (0.6-1.3); TOTAL PROTEIN 6.7 g/dL (6.4-8.9)
[2024-07-05] MEDS: iohexoL-300 100 ML VIAL IVP ONE (18:30)
--- NOTE | 2024-07-05 18:58 | XRAY Report ---
PROCEDURE: XR Chest 1V INDICATIONS: Sepsis TECHNIQUE: One view of the chest was acquired. COMPARISON: 06/24/2024 FINDINGS AND IMPRESSION: Right portacatheter in place. On this single view study, no dense airspace disease. No pleural effusi ons. Normal heart size. Degenerative osseous changes. Reviewed by: Jhon Arredondo MD on 07/05/2024 6:56 PM PDT Approved by: Jhon Arredondo MD on 07/05/2024 6:56 PM PDT Station ID: [id number]
[2024-07-05 18:59] LABS: BILIRUBIN,URINE MODERATE (NEGATIVE); GLUCOSE, URINE (UA) NEGATIVE (NEGATIVE); KETONES,URINE (UA) TRACE mg/dL (NEGATIVE); LEUKOCYTE ESTERASE, URINE NEGATIVE (NEGATIVE); NITRITE,URINE NEGATIVE (NEGATIVE); OCCULT BLOOD,URINE NEGATIVE (NEGATIVE); PROTEIN,URINE 30 mg/dL (NEGATIVE); UROBILINOGEN,URINE 0.2 (NORMAL) E.U./dL (NORMAL)
--- NOTE | 2024-07-05 19:03 | CT Report ---
PROCEDURE: CT Angio Chest INDICATIONS: hypoxic, SOA, chest pain CONTRAST: Omni 300 80ml TECHNIQUE: After the administration of intravenous contrast, 2 mm axial images were acquired from the pulmonary apices to the posterior costophrenic angles during the arterial phase. In addition, 1 mm lung kernel and 5 mm soft tissue kernel reconstructions were performed. 3-dimensional coronal oblique maximum int ensity projection (MIP) reformats, 8 mm axial MIP, and 5 mm coronal and sagittal MPR reformats were t hen performed through the thorax. For radiation dose reduction, the following was used: automated exp osure control, adjustment of mA and/or kV according to patient size. COMPARISON: 05/09/2024 FINDINGS: Image quality: Diagnostic Lungs and pleura:Focal lingular atelectasis and bronchiectasis again seen. Dependent atelectasis also present. Mild centrilobular nodules are present, most significant in the right upper lobe. No dense airspace disease. No pleural effusions. Mediastinum, heart, and esophagus: No acute pulmonary embolism. A right port catheter is seen terminating at the cavoatrial junction. No pathologic lymph nodes by size criteria. Chest wall and thyroid: Unremarkable Upper abdomen: Cholelithiasis. Bones: Degenerative changes. No aggressive appearing osseous abnormality. Partially seen lumbar kyphoplasty changes. Partially seen cervical sclerotic lesion. IMPRESSION: No acute pulmonary embolism. Likely infectious/inflammatory pulmonary nodules are present most significant in the right upper lobe . Focal lingular atelectasis and bronchiectasis also again seen. Surveillance imaging is recommended for these findings. Sclerotic C7 appearance of the vertebral body again seen. Cholelithiasis. Reviewed by: Jhon Arredondo MD on 07/05/2024 7:01 PM PDT Approved by: Jhon Arredondo MD on 07/05/2024 7:01 PM PDT Station ID: [id number]
[2024-07-05 19:09] LABS: BACTERIA,URINE Rare /HPF (None Seen); CLARITY,URINE HAZY (CLEAR); RBC,URINE 0-5 /HPF (0-5); SQUAMOUS EPITHELIAL CELL,UR MANY Squamous (<= Few)
[2024-07-05 19:17] LABS: CORONAVIRUS 229E-RESP PCR NOT DETECTED; CORONAVIRUS HKU1-RESP PCR NOT DETECTED; CORONAVIRUS NL63-RESP PCR NOT DETECTED; CORONAVIRUS OC43-RESP PCR NOT DETECTED; HUMAN METAPNEUMOVIRUS NOT DETECTED; INFLUENZA A- RESP PCR PANEL NOT DETECTED; RHINOVIRUS/ENTEROVIRUS NOT DETECTED; SARS-CoV-2 -RESP PCR PANEL NOT DETECTED
[2024-07-05 19:18] LABS: B. PARAPERTUSSIS- RESP PCR PAN NOT DETECTED; B. PERTUSSIS- RESP PCR PANEL NOT DETECTED; C. PNEUMONIAE- RESP PCR PANEL NOT DETECTED; INFLUENZA B - RESP PCR PANEL NOT DETECTED; M. PNEUMONIAE- RESP PCR PANEL NOT DETECTED; PARAINFLUENZA VIRUS 1 NOT DETECTED; PARAINFLUENZA VIRUS 2 NOT DETECTED; PARAINFLUENZA VIRUS 4 NOT DETECTED; RSV- RESP PCR PANEL NOT DETECTED
[2024-07-05] MEDS: AZITHROMYCIN INJ 500 MG in SODIUM CHLORIDE 0.9% 250 ML IV STA (20:30)
[2024-07-05] MEDS: cefTRIAXone 1 GM in SODIUM CHLORIDE 0.9% MINIBAG 100 ML IV STA (20:30)
--- NOTE | 2024-07-05 20:37 | HISTORY & PHYSICAL EXAMINATION ---
Chief Complaint Chief Complaint Chief Complaint: Dyspnea History of Present Illness Admitted From Admitted From:: Home History Obtained From History obtained from: Patient interview History of Present Illness HPI Comment/Other: 69-year-old female with history of prior breast cancer which has metastasized to her liver actively undergoing treatment who had a recent hospital admission for septic arthritis presents to the emergency department with fever, chills, dyspnea, chest pressure on deep inspiration. In the ER, CTA chest was performed which showed likely infectious versus inflammatory pulmonary nodules. She was on room air at rest, but with any kind of activity she desaturated significantly and became dizzy. Hospitalist was contacted for observation for acute hypoxic respiratory failure secondary to pneumonia Meds/Allgy Home Medications Ambulatory Orders Medication Instructions Recorded Confirmed dulaglutide 0.75 mg/0.5 mL 0.75 mg SQ UD 11/10/21 06/29/24 subcutaneous pen injector (Trulicity) loperamide 2 mg capsule 2 mg PO ONCE PRN Diarrhea 12/24/21 06/29/24 Permanent Disabled Placard 02/03/24 05/16/24 diphenoxylate-atropine 2.5 See Rx Instructions .Route QID 02/03/24 06/29/24 mg-0.025 mg tablet ondansetron 8 mg disintegrating 8 mg PO TID 02/03/24 06/29/24 tablet prochlorperazine maleate 10 mg 10 mg PO Q6H PRN nausea and 02/03/24 06/29/24 tablet (Compazine) vomiting sertraline 100 mg tablet 100 mg PO DAILY 02/03/24 06/29/24 tamoxifen 20 mg tablet 20 mg PO QDAY 02/03/24 06/29/24 levothyroxine 25 mcg tablet See Rx Instructions .Route 03/06/24 06/29/24 .COMPLEX #90 tabs rosuvastatin 20 mg tablet See Rx Instructions .Route 03/06/24 06/29/24 .COMPLEX #90 tabs sertraline 50 mg tablet 50 mg PO QDAY #90 tabs 03/09/24 06/29/24 metformin 500 mg tablet 500 mg PO BID #180 tabs 04/13/24 06/29/24 apixaban 2.5 mg tablet (Eliquis) 2.5 mg PO BID #60 tabs 04/20/24 06/29/24 hydromorphone 2 mg tablet 2 - 4 mg (1 - 2 x 2 mg) PO Q3H PRN 04/25/24 06/29/24 pain #100 tabs pregabalin 150 mg capsule 150 mg PO TID 05/09/24 06/29/24 celecoxib 100 mg capsule 100 mg PO BID #180 caps 05/16/24 06/29/24 carvedilol 3.125 mg tablet 3.125 mg PO BID 05/17/24 06/29/24 magnesium oxide 500 mg capsule 500 mg PO QDAY low magnesium #6 05/24/24 06/29/24 caps olanzapine 2.5 mg tablet (Zyprexa) 2.5 mg PO QPM 06/21/24 06/29/24 acetaminophen 500 mg tablet 1,000 mg (2 x 500 mg) PO Q6HR PRN 07/03/24 Pain 1-4 #90 tabs clotrimazole-betamethasone 1 1 applic topical BID #45 grams 07/03/24 %-0.05 % topical cream sulfamethoxazole 800 1 tab PO BID #14 tabs 07/03/24 mg-trimethoprim 160 mg tablet (Bactrim DS) Allergies Allergies Allergy/AdvReac Type Severity Reaction Status Date / Time adhesive Allergy Severe Rash Verified 07/05/24 15:24 anastrozole Allergy Dizziness Verified 07/05/24 15:24 hydroxyzine Allergy Itching Verified 07/05/24 15:24 clindamycin AdvReac Severe Nausea Verified 07/05/24 15:24 meclizine AdvReac Severe Dizziness Verified 07/05/24 15:24 silver (From Tegaderm AG AdvReac Severe Rash Verified 07/05/24 15:24 Mesh) fentanyl AdvReac Intermediate Tachycardia Verified 07/05/24 15:24 codeine AdvReac Nausea Verified 07/05/24 15:24 gabapentin AdvReac Dizziness Verified 07/05/24 15:24 lorazepam AdvReac Dizziness Verified 07/05/24 15:24 PFSH Active Problems All Active Problems (Updated 07/05/24 @ 21:15 by Zeyad Knight DNP) [place] (acute kidney injury) (Acute) Community acquired pneumonia (Acute 06/12/20) Acute hypoxic respiratory failure (Acute) Hypoxic (Acute) Pneumonia (Acute) Cellulitis (Acute) Septic arthritis (Acute) Secondary malignant neoplasm of bone (Acute) DVT of right axillary vein, chronic (Acute) Anorexia (Acute) Lumbar radiculopathy (Acute) Acute dehydration (Acute) Hypotension (Acute) Muscle weakness (Acute) Depression (Acute) Rash and other nonspecific skin eruption (Acute) Secondary malignant neoplasm of bone (Acute) Thrombosis due to vascular catheter (Acute) Healthcare maintenance (Acute) Ulcer of chest wall with fat layer exposed (Acute) Radiological procedure and radiotherapy as the cause of abnormal reaction of the patient, or of later complication, without mention of misadventure at the time of the procedure (Acute) Soft tissue radionecrosis (Acute) Non-pressure chronic ulcer of other part of left foot limited to breakdown of skin (Acute) Non-pressure chronic ulcer of other part of right foot with fat layer exposed (Acute) Anxiety and depression (Acute) Acute low back pain (Acute) Pressure ulcer of toe of right foot, unstageable (Acute) Pulmonary embolus, left (Acute) Arthritis of left hip (Acute) Arthritis of knee, right (Acute) Compression fracture of L2 vertebra (Acute) Type 2 diabetes mellitus with peripheral neuropathy (Acute 04/11/05) Type 2 diabetes mellitus with other skin ulcer (Acute) Non-pressure chronic ulcer of right heel and midfoot with fat layer exposed (Acute) Non-pressure chronic ulcer of other part of left foot with fat layer exposed (Acute) Chronic osteomyelitis of right foot (Acute) Onychomycosis of multiple toenails with type 2 diabetes mellitus (Acute 11/07/20) Non-alcoholic fatty liver disease (Acute 10/05/21) Asymptomatic cholelithiasis (Acute 10/05/21) Essential hypertension (Acute) Supraventricular tachycardia (Acute) Renal artery aneurysm (Chronic) Mixed hyperlipidemia (Acute 04/11/09) Hypothyroidism (Acute 03/15/21) Paroxysmal atrial flutter (Acute 09/13/23) Obstructive sleep apnea (Acute 09/27/06) Sigmoid diverticulosis (Acute 06/19/20) Seborrheic dermatitis (Acute 01/27/10) Atopic dermatitis (Acute) Allergic contact dermatitis due to adhesives (Acute 12/25/18) Major depressive disorder, recurrent episode, moderate (Acute 07/04/06) Insomnia (Chronic) Gustatory rhinitis (Acute 07/07/23) Encounter for chemotherapy management (Acute) Adenocarcinoma of left breast (Acute) HER2-positive carcinoma of left breast (Acute) Adenocarcinoma of left breast metastatic to liver (Acute) Breast cancer metastasized to pelvis (Acute) History of bisphosphonate therapy (Acute) Chemotherapy-induced neuropathy (Acute) Breast cancer, left (Acute) Metastatic breast cancer (Acute) Immunocompromised state due to drug therapy (Chronic) Chemotherapy induced diarrhea (Acute) Medical History Medical History Pain in throat Right rotator cuff tear Neutropenic fever UTI (urinary tract infection) Left leg DVT 01/2020 w/ right THR Epistaxis, recurrent (06/02/23) Community acquired pneumonia (06/12/20) Acute COVID-19 (06/16/23) Surgical History Surgical History H/O kyphoplasty 10/2023, L2 compression fracture History of total left knee replacement 04/2023 History of insertion of central venous access port 12/2021, right IJ History of liver biopsy 11/2021, metastatic breast cancer H/O skin graft 02/2020, 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 S/P total right hip arthroplasty 01/2020 H/O mastectomy 10/2018, Bilateral, modified radical on left + simple on right (no malignancy) H/O chest tube placement 2018, following thoroscopy for lung lesions, needed for bleeding w/ procedure History of insertion of central venous access port 06/2018 w/ revision in 07/2018, removed in 09/2018 due to extrusion Lumbar canal stenosis 2016, decompression surgery H/O colonoscopy 10/2007, normal S/P lumbar laminectomy 1994, L4-5 w/ spinal cord injury H/O varicose vein stripping 1993, bilateral H/O tubal ligation 05/1992, S/P dilatation and curettage 1988, for miscarriage Hx of tonsillectomy Family History Family History Father Dementia Brain tumor Mother CAD (coronary artery disease) Thyroid disorder Diabetes Social History Social History Smoking Status: Never smoker Second hand tobacco smoke exposure: No Do you dip or chew tobacco?: No Do you vape?: No Living arrangement: At home Marital Status: Living Condition: With family More Information: 2 children Support Person: Yes Relationship: Level: Independent Do you feel safe in your home environment?: Yes Suffered physical, verbal, emotional, or financial abuse?: No History of Abuse: No ETOH Use: None Substance Use: denies use Are you sexually active?: No 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, [employer], 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 Service: No POLST Patient has POLST: No POLST Status: Full Code Review of Systems Status of ROS: 10 or more systems reviewed and unremarkable except as noted in history and below Constitutional Reports: Fever and Chills Cardiovascular Reports: shortness of breath with exertion (Chest tightness) Respiratory Reports: Shortness of breath (Chest tightness); Denies: Cough Gastrointestinal Denies: Abdominal pain Exam Constitutional normal general appearance and no apparent distress HENMT normocephalic and head/scalp atraumatic Eyes PERRL Neck/C-Spine visual inspection normal Lymph no lymphadenopathy noted Chest inspection of chest normal Respiratory breath sounds equal bilaterally Cardiovascular normal heart rate noted Gastrointestinal abdomen normal to inspection Extremities normal to inspection Neurology GCS 15 Psychiatry oriented x3 Skin skin color normal Conclusion/Plan Problem List (1) Acute hypoxic respiratory failure: Plan: Likely secondary to pneumonia CTA chest showed nodular infectious versus inflammatory opacities in the right upper lobe. I will manage her pneumonia as below and she will need follow-up imaging to determine resolution of this (2) Community acquired pneumonia: Plan: She had a recent hospitalization, so I am covering her for community-acquired pneumonia with risk factors for Pseudomonas and MRSA Cefepime 1 g every 24 hours, renally dosed to avoid toxicity Vancomycin per pharmacy, with vanc trough per protocol Check MRSA swab, de-escalate vancomycin if negative (3) [place] (acute kidney injury): Plan: Likely secondary to infection BMP in a.m. LR at 100 x 2 bags (4) Paroxysmal atrial flutter: Plan: I am continuing her home dose carvedilol as well as her Eliquis Rate controlled, pulse 74 (5) Type 2 diabetes mellitus with peripheral neuropathy: Plan: Hold home metformin SSI ACHS (6) Breast cancer, left: Plan: Undergoing treatment with Dr. Resendiz In the outpatient setting Qualifiers: Breast location: lower inner quadrant of breast Estrogen receptor status: positive Patient sex: female Qualified Code(s): C50.312 - Malignant neoplasm of lower-inner quadrant of left female breast; Z17.0 - Estrogen receptor positive status [ER+] Plan Placed in observation Full code Her daughter is her surrogate decision-maker Lab Results Lab results reviewed: Yes 07/05/24 18:00 07/05/24 18:00 Core Measures Anticipated LOS I expect patient to be DC'd or transferred within 96 hours.: Yes DVT/VTE - Prophylaxis VTE/DVT Prophylaxis med ordered at admit?: Yes
[2024-07-05] MEDS ORDERED: CEFEPIME 2 GM VIAL ONE (20:42)
[2024-07-05] MEDS ORDERED: VANCOMYCIN 1 GM VIAL ONE (20:43)
[2024-07-05] MEDS: CEFEPIME 2 GM in SODIUM CHLORIDE 0.9% MINIBAG 100 ML IV STA (21:21)
[2024-07-05] MEDS ORDERED: SERTRALINE 50 MG TABLET PO SCH (21:30)
[2024-07-05] MEDS ORDERED: PROCHLORPERAZINE 5 MG TABLET PO PRN (21:30)
[2024-07-05] MEDS ORDERED: LOPERAMIDE 2 MG CAPSULE PO PRN (21:30)
[2024-07-05] MEDS: CLOTRIMAZOLE/BETAMETHASONE 15 GM TUBE TOP SCH (22:10)
[2024-07-05] MEDS: ONDANSETRON ODT 4 MG TABLET PO SCH (22:13)
[2024-07-05] MEDS: APIXABAN 2.5 MG TABLET PO SCH (22:45)
[2024-07-05] MEDS: guaiFENesin 600 MG TABLET PO SCH (22:45)
[2024-07-05] MEDS: carvediloL 3.125 MG TABLET PO SCH (22:45)
[2024-07-05] MEDS: KETOROLAC 15 MG/ML VIAL IVP STA (22:46)
[2024-07-05] MEDS: LACTATED RINGERS 1,000 ML IV SCH (22:46)
[2024-07-05] MEDS: VANCOMYCIN INJ 1.75 GM in SODIUM CHLORIDE 0.9% 500 ML IV STA (22:47)
[2024-07-05] MEDS: HYDROmorphone 2 MG TABLET PO PRN (22:47)
[2024-07-05] MEDS: PREGABALIN 100 MG CAPSULE PO SCH (23:03)
[2024-07-05] MEDS: ATORVASTATIN 40 MG TABLET PO SCH (23:03)
[2024-07-05] MEDS: PREGABALIN 25 MG CAPSULE PO SCH (23:03)
[2024-07-05] MEDS: OLANZapine ODT 5 MG TABLET TL SCH (23:10)
[2024-07-05] MEDS: CELECOXIB 100 MG CAPSULE PO SCH (23:10)
[2024-07-06] MEDS: ACETAMINOPHEN 325 MG TABLET PO PRN (02:00)
[2024-07-06] MEDS: SODIUM CHLORIDE FLUSH 0.9% 10 ML SYRINGE IVP SCH (02:00)
[2024-07-06 05:59] LABS: BASOPHILS % (AUTO) 1.1 %; EOSINOPHILS # (AUTO) 0.1 10^3/uL (0.0-0.7); EOSINOPHILS % (AUTO) 2.7 %; HCT - HEMATOCRIT 35.8 % (37.0-47.0); HGB - HEMOGLOBIN 11.1 g/dL (12.0-16.0); LYMPHOCYTES # (AUTO) 0.9 10^3/uL (1.5-3.5); LYMPHOCYTES % (AUTO) 23.2 %; MEAN CORPUSCULAR HEMOGLOBIN 30.2 pg (27.0-31.0); MEAN CORPUSCULAR VOLUME 97.3 fL (81.0-99.0); MEAN PLATELET VOLUME 11.8 fL (7.9-10.8); MONOCYTES # (AUTO) 0.8 10^3/uL (0.0-1.0); MONOCYTES % (AUTO) 22.6 %; NEUTROPHILS # (AUTO) 1.9 10^3/uL (1.5-6.6); NEUTROPHILS % (AUTO) 50.1 %; PLT - PLATELET COUNT 124 10^3/uL (130-450); RED BLOOD COUNT 3.68 10^6/uL (4.20-5.40); WHITE BLOOD COUNT 3.7 x10^3/uL (4.8-10.8)
[2024-07-06 06:15] LABS: CALCIUM 8.1 mg/dL (8.5-10.3); CREATININE 1.5 mg/dL (0.6-1.3); POTASSIUM 3.8 mmol/L (3.5-4.5)
[2024-07-06] MEDS: LEVOTHYROXINE 25 MCG TABLET PO SCH (06:30)
[2024-07-06] MEDS ORDERED: IPRATROPIUM/ALBUTEROL 3 ML NEB INH PRN (09:05)
[2024-07-06] MEDS: INSULIN LISPRO 300 UNIT/3 ML PEN SUBQ SCH (09:16)
[2024-07-06] MEDS: MAGNESIUM OXIDE 400 MG TABLET PO SCH (09:16)
[2024-07-06] MEDS: SERTRALINE 50 MG TABLET PO SCH (09:16)
[2024-07-06] MEDS: IPRATROPIUM/ALBUTEROL 3 ML NEB INH ONE (09:49)
[2024-07-06] MEDS ORDERED: LEVALBUTEROL 1.25 MG/3 ML NEB INH PRN (10:03)
[2024-07-06] MEDS: methylPREDNISolone SUCCINATE 40 MG/ML VIAL IVP ONE (11:00)
[2024-07-06] MEDS ORDERED: GADOTERATE MEGLUMINE 10 MMOL/20 ML VIAL ONE (11:52)
[2024-07-06] MEDS: MULTIVITAMIN W/MINERALS TABLET PO SCH (12:22)
--- NOTE | 2024-07-06 13:07 | PROVIDER PROGRESS NOTE ---
Subjective Subjective Subjective: Patient is a 69-year-old female with a history of breast cancer with extensive metastasis to the bone and liver who presented with dyspnea. She was recently admitted for septic arthritis, and completed 2 weeks of IV antibiotics, followed by a week of oral antibiotics. This time, she returns, because she has had progressive shortness of breath. This is associated with some chest tightness. She has no chest pressure. She endorses of a cough as well with no sputum production. She is having alternating fevers and chills. She also has some dizziness and lightheadedness. MRI brain has been ordered to assess for metastasis. We reviewed the results of the CT scan of her chest together. I shared my worries that I am concerned that the nodules may be progression of her metastatic disease. I also spoke with [facility], [facility] here. They already have an appointment set up with her for 07/10, with palliative care. Current Medications Current Medications Current Medications: Current Medications Generic Name Dose Route Start Last Admin Trade Name Freq PRN Reason Stop Dose Admin Acetaminophen 650 mg 07/05/24 21:30 07/06/24 02:00 Acetaminophen 325 Mg Tablet PO 650 mg Q4HR PRN Administration Pain 1 to 4, or Fever Apixaban 2.5 mg 07/05/24 21:30 07/06/24 09:16 Apixaban 2.5 Mg Tablet PO 2.5 mg BID JAY Administration Atorvastatin Calcium 40 mg 07/05/24 23:00 07/05/24 23:03 Atorvastatin 40 Mg Tablet PO Not Given QPM JAY Carvedilol 3.125 mg 07/05/24 21:30 07/06/24 09:17 Carvedilol 3.125 Mg Tablet PO 3.125 mg BID JAY Administration Celecoxib 100 mg 07/05/24 23:00 07/06/24 09:15 Celecoxib 100 Mg Capsule PO 100 mg BID JAY Administration Clotrimazole 1 applic 07/05/24 21:30 07/05/24 22:10 Clotrimazole/Betamethasone 15 Gm Tube TOP Not Given BID JAY Guaifenesin 1,200 mg 07/05/24 21:30 07/06/24 09:16 Guaifenesin 600 Mg Tablet PO 1,200 mg BID JAY Administration Hydromorphone HCl 2 - 4 mg 07/05/24 21:30 07/06/24 06:29 Hydromorphone 2 Mg Tablet PO 4 mg Q3H PRN Administration pain Cefepime HCl 1 gm/ Sodium 100 mls @ 200 mls/hr 07/06/24 21:00 Chloride IV Q24H JAY Lactated Ringer's 1,000 mls @ 100 mls/hr 07/05/24 22:00 07/06/24 11:00 Lr IV 07/06/24 17:59 100 mls/hr .Q10H AJY Administration Vancomycin HCl 500 mg/ Sodium 100 mls @ 100 mls/hr 07/06/24 21:00 Chloride IV Q12H JAY Insulin Human Lispro 1 - 5 unit 07/06/24 08:00 07/06/24 09:16 Insulin Lispro 300 Unit/3 Ml Pen SUBQ Not Given 0800,1200,1700,2100 [facility] Protocol Levalbuterol HCl 1.25 mg 07/06/24 10:03 Levalbuterol 1.25 Mg/3 Ml Neb INH Q4H PRN Shortness of Air/Wheezing Levothyroxine Sodium 25 mcg 07/06/24 07:00 07/06/24 06:30 Levothyroxine 25 Mcg Tablet PO 25 mcg QDAC JAY Administration Loperamide HCl 2 mg 07/05/24 21:30 Loperamide 2 Mg Capsule PO 07/12/24 21:29 ONCE PRN Diarrhea Magnesium Oxide 400 mg 07/06/24 08:00 07/06/24 09:16 Magnesium Oxide 400 Mg Tablet PO 400 mg DAILYWM JAY Administration Multivitamins/Minerals 1 tab 07/06/24 12:00 Multivitamin W/Minerals Tablet PO DAILYWM JAY Olanzapine 2.5 mg 07/05/24 21:30 07/05/24 23:10 Olanzapine Odt 5 Mg Tablet TL 2.5 mg QPM JAY Administration Ondansetron HCl 8 mg 07/05/24 22:00 07/06/24 06:30 Ondansetron Odt 4 Mg Tablet PO 8 mg TID JAY Administration Tamoxifen 20 Mg 1 each 07/06/24 09:00 07/06/24 09:22 Tablet PO 1 each DAILY JAY Administration Pregabalin 100 mg 07/05/24 23:00 07/05/24 23:03 Pregabalin 100 Mg Capsule PO Not Given TID JAY Pregabalin 50 mg 07/05/24 23:00 07/05/24 23:03 Pregabalin 25 Mg Capsule PO Not Given TID JAY Prochlorperazine Maleate 10 mg 07/05/24 21:30 Prochlorperazine 5 Mg Tablet PO Q6H PRN nausea and vomiting Sertraline HCl 150 mg 07/06/24 09:00 07/06/24 09:16 Sertraline 50 Mg Tablet PO 150 mg DAILY JAY Administration Sodium Chloride 10 ml 07/05/24 21:30 Sodium Chloride Flush 0.9% 10 Ml Syringe IVP PRN PRN NEEDED PER PROVIDER ORDERS Sodium Chloride 10 ml 07/06/24 01:00 07/06/24 09:17 Sodium Chloride Flush 0.9% 10 Ml Syringe IVP 10 ml 0100,0900,1700 JAY Administration Objective Vital Signs/Intake & Output Reviewed Vital Signs: Yes Vital Signs: Vital Signs x48h Temp Pulse Pulse Resp BP Pulse Ox O2 Flow Rate 07/06/24 09:50 2 07/06/24 09:50 81 20 07/06/24 07:37 98.4 F 80 16 115/63 94 07/06/24 06:36 98.4 F 122 H 16 96/63 93 Intake & Output: Intake & Output 07/03/24 07/04/24 07/05/24 07/06/24 23:59 23:59 23:59 23:59 Intake Total 100 / 100 1480 / 1480 Balance 100 / 100 1480 / 1480 Weight (kg) 89 kg Objective General Appearance: positive No acute distress, Alert and Anxious Eyes Bilateral: positive Normal inspection, PERRL and EOMI ENT: positive ENT inspection nml, Pharynx nml and No signs of dehydration Neck: positive Nml inspection, Thyroid nml and No JVD Respiratory: positive Chest non-tender, No respiratory distress, Breath sounds nml and Rales (mild bibasilar crackles); negative Wheezes or Rhonchi Cardiovascular: positive Regular rate & rhythm and No murmur; negative Tachycardia, Bradycardia, Systolic murmur or Diastolic murmur Abdomen: positive Non-tender and No distention; negative Guarding, Rebound, Hepatomegaly, Splenomegaly or Mass Back: positive Nml inspection; negative CVA tenderness (R) or CVA tenderness (L) Skin: positive Color nml, No rash, Warm and Dry Extremities: positive Nml appearance, No pedal edema and Other (Right hand wrapped, not unwrapped. Good sensation in all fingertips. Is able to move all fingertips slightly, improved from yesterday.) Neurologic/Psychiatric: positive Oriented x3 and Depressed mood/affect Lab Results 07/06/24 05:52 07/06/24 05:52 Other Labs: Lab Results x24hrs 07/06/24 07/06/24 07/05/24 Range/Units 07:34 05:52 18:49 WBC 3.7 L (4.8-10.8) x10^3/uL RBC 3.68 L (4.20-5.40) 10^6/uL Hgb 11.1 L (12.0-16.0) g/dL Hct 35.8 L (37.0-47.0) % MCV 97.3 (81.0-99.0) fL MCH 30.2 (27.0-31.0) pg MCHC 31.0 L (32.0-36.0) g/dL RDW 15.0 (12.0-15.0) % Plt Count 124 L (130-450) 10^3/uL MPV 11.8 H (7.9-10.8) fL Neut # (Auto) 1.9 (1.5-6.6) 10^3/uL Lymph # (Auto) 0.9 L (1.5-3.5) 10^3/uL [place] # (Auto) 0.8 (0.0-1.0) 10^3/uL Eos # (Auto) 0.1 (0.0-0.7) 10^3/uL Baso # (Auto) 0.0 (0.0-0.1) 10^3/uL Absolute Nucleated RBC 0.00 x10^3/uL Nucleated RBC % 0.0 /100WBC Sodium 141 (135-145) mmol/L Potassium 3.8 (3.5-4.5) mmol/L Chloride 108 (101-111) mmol/L Carbon Dioxide 25 (21-32) mmol/L Anion Gap 8.0 (6-13) BUN 33 H (6-20) mg/dL Creatinine 1.5 H (0.6-1.3) mg/dL Estimated GFR (MDRD) 34 L (>89) Glucose 80 (74-104) mg/dL POC Whole Bld Glucose 91 (70-100) mg/dL Lactic Acid (0.5-2.2) mmol/L Calcium 8.1 L (8.5-10.3) mg/dL Total Bilirubin (0.2-1.0) mg/dL AST (10-42) IU/L ALT (10-60) IU/L Alkaline Phosphatase (42-121) IU/L Total Protein (6.4-8.9) g/dL Albumin (3.2-5.5) g/dL Globulin (2.1-4.2) g/dL Albumin/Globulin Ratio (1.0-2.2) Urine Color Urine Clarity (CLEAR) Urine pH (5.0-7.5) PH Ur Specific [place] (1.002-1.030) Urine Protein (NEGATIVE) mg/dL Urine Glucose (UA) (NEGATIVE) mg/dL Urine Ketones (NEGATIVE) mg/dL Urine Occult Blood (NEGATIVE) Urine Nitrite (NEGATIVE) Urine Bilirubin (NEGATIVE) Urine Urobilinogen (NORMAL) E.U./dL Ur Leukocyte Esterase (NEGATIVE) Urine RBC (0-5) /HPF Urine WBC (0-5) /HPF Ur Squamous Epith Cells (<= Few) Urine Bacteria (None Seen) /HPF Urine Casts 6-10 WBC Casts /LPF Urine Culture Comments NOT INDICATED Nasal Adenovirus (PCR) Nasal B. parapertussis DNA (PCR) Nasal Coronavir 229E PCR Nasal Coronavir HKU1 PCR Nasal Coronavir NL63 PCR Nasal Coronavir OC43 PCR Nasal Enterovir/Rhinovir PCR Nasal Influenza B PCR Nasal Influenza A PCR Nasal Parainfluen 1 PCR Nasal Parainfluen 2 PCR Nasal Parainfluen 3 PCR Nasal Parainfluen 4 PCR Nasal RSV (PCR) Nasal B.pertussis DNA PCR Nasal C.pneumoniae (PCR) Luis Human Metapneumo PCR Nasal M.pneumoniae (PCR) Nasal SARS-CoV-2 (PCR) 07/05/24 07/05/24 Range/Units 18:49 18:00 WBC 4.5 L (4.8-10.8) x10^3/uL RBC 4.23 (4.20-5.40) 10^6/uL Hgb 12.9 (12.0-16.0) g/dL Hct 39.9 (37.0-47.0) % MCV 94.3 (81.0-99.0) fL MCH 30.5 (27.0-31.0) pg MCHC 32.3 (32.0-36.0) g/dL RDW 14.9 (12.0-15.0) % Plt Count 153 (130-450) 10^3/uL MPV 11.7 H (7.9-10.8) fL Neut # (Auto) 2.6 (1.5-6.6) 10^3/uL Lymph # (Auto) 0.9 L (1.5-3.5) 10^3/uL [place] # (Auto) 0.9 (0.0-1.0) 10^3/uL Eos # (Auto) 0.0 (0.0-0.7) 10^3/uL Baso # (Auto) 0.1 (0.0-0.1) 10^3/uL Absolute Nucleated RBC 0.00 x10^3/uL Nucleated RBC % 0.0 /100WBC Sodium 143 (135-145) mmol/L Potassium 4.0 (3.5-4.5) mmol/L Chloride 108 (101-111) mmol/L Carbon Dioxide 26 (21-32) mmol/L Anion Gap 9.0 (6-13) BUN 25 H (6-20) mg/dL Creatinine 1.2 (0.6-1.3) mg/dL Estimated GFR (MDRD) 45 L (>89) Glucose 88 (74-104) mg/dL POC Whole Bld Glucose (70-100) mg/dL Lactic Acid 1.2 (0.5-2.2) mmol/L Calcium 9.4 (8.5-10.3) mg/dL Total Bilirubin 0.8 (0.2-1.0) mg/dL AST 24 (10-42) IU/L ALT 11 (10-60) IU/L Alkaline Phosphatase 62 (42-121) IU/L Total Protein 6.7 (6.4-8.9) g/dL Albumin 3.7 (3.2-5.5) g/dL Globulin 3.0 (2.1-4.2) g/dL Albumin/Globulin Ratio 1.2 (1.0-2.2) Urine Color DARK YELLOW Urine Clarity HAZY (CLEAR) Urine pH 6.0 (5.0-7.5) PH Ur Specific [place] 1.020 (1.002-1.030) Urine Protein 30 H (NEGATIVE) mg/dL Urine Glucose (UA) NEGATIVE (NEGATIVE) mg/dL Urine Ketones TRACE (NEGATIVE) mg/dL Urine Occult Blood NEGATIVE (NEGATIVE) Urine Nitrite NEGATIVE (NEGATIVE) Urine Bilirubin MODERATE H (NEGATIVE) Urine Urobilinogen 0.2 (NORMAL) (NORMAL) E.U./dL Ur Leukocyte Esterase NEGATIVE (NEGATIVE) Urine RBC 0-5 (0-5) /HPF Urine WBC 6-10 H (0-5) /HPF Ur Squamous Epith Cells MANY Squamous H (<= Few) Urine Bacteria Rare (None Seen) /HPF Urine Casts 3-5 Hyaline Casts /LPF Urine Culture Comments Nasal Adenovirus (PCR) NOT DETECTED Nasal B. parapertussis DNA (PCR) NOT DETECTED Nasal Coronavir 229E PCR NOT DETECTED Nasal Coronavir HKU1 PCR NOT DETECTED Nasal Coronavir NL63 PCR NOT DETECTED Nasal Coronavir OC43 PCR NOT DETECTED Nasal Enterovir/Rhinovir PCR NOT DETECTED Nasal Influenza B PCR NOT DETECTED Nasal Influenza A PCR NOT DETECTED Nasal Parainfluen 1 PCR NOT DETECTED Nasal Parainfluen 2 PCR NOT DETECTED Nasal Parainfluen 3 PCR NOT DETECTED Nasal Parainfluen 4 PCR NOT DETECTED Nasal RSV (PCR) NOT DETECTED Nasal B.pertussis DNA PCR NOT DETECTED Nasal C.pneumoniae (PCR) NOT DETECTED Luis Human Metapneumo PCR NOT DETECTED Nasal M.pneumoniae (PCR) NOT DETECTED Nasal SARS-CoV-2 (PCR) NOT DETECTED Diagnostic Imaging Diagnostic Imaging Results: positive Final report reviewed Assessment/Plan Problem List (1) Acute hypoxic respiratory failure: Impression: Patient is requiring 2 L of oxygen to maintain saturations. Will wean as tolerated. CTA shows focal lingular atelectasis and bronchiectasis, mild centrilobular nodules, more significant in the right upper lobes. Unclear if it is infectious etiology versus progression of her metastatic disease. I did review the images with [facility]. They will follow up with her on 07/10. Will treat for possible infectious etiology, i.e. an organized pneumonia with cefepime. (2) Community acquired pneumonia: Impression: MRSA swab negative. Vancomycin discontinued. Continue cefepime at this time. Qualifiers: Laterality: unspecified laterality Qualified Code(s): J18.9 - Pneumonia, unspecified organism (3) [place] (acute kidney injury): Impression: Likely due to decreased P.O. intake. Continue IVF rehydration. Continue to trend. Bladder scan ordered. (4) Paroxysmal atrial flutter: Impression: Continue Coreg, Eliquis. (5) Type 2 diabetes mellitus with peripheral neuropathy: Impression: Patient states that she is prediabetic, and just on metformin. A1c of 6.1%. Hold off on low-dose sliding scale at this time. (6) Pulmonary embolus, left: Impression: Continue Eliquis. (7) Hypothyroidism: Impression: Continue levothyroxine. Qualifiers: Hypothyroidism type: unspecified Qualified Code(s): E03.9 - Hypothyroidism, unspecified (8) Major depressive disorder, recurrent episode, moderate: Impression: Continue sertraline. (9) Adenocarcinoma of left breast: Impression: Invasive ductal carcinoma, stage IV, metastasis to liver, bones. Follows with Dr. Resendiz. Currently undergoing chemotherapy. Patient knows she is terminal. We did have a long discussion about her goals of care. She would like to be full code at this time. Continue p.o. Dilaudid as needed.
[2024-07-06] MEDS ORDERED: HYDROmorphone 2 MG TABLET PO PRN (14:09)
[2024-07-06] MEDS: GADOTERATE MEGLUMINE 10 MMOL/20 ML VIAL IVP ONE (14:34)
[2024-07-06] MEDS: HYDROmorphone 2 MG TABLET PO PRN (16:39)
--- NOTE | 2024-07-06 17:40 | MRI Report ---
PROCEDURE: MRI Brain W/WO INDICATIONS: dizziness, mets CONTRAST: clariscan 17.8 ml TECHNIQUE: Noncontrast axial T1 spin echo, axial T2 fast spin echo, sagittal and axial FLAIR, coronal T2 fast sp in echo, axial gradient echo, axial diffusion and ADC through the brain. After the administration of contrast, axial and coronal T1 spin echo with fat saturation through the brain. COMPARISON: 09/28/2023 FINDINGS: Image quality: Excellent. CSF spaces: Basal cisterns are patent. No extra-axial fluid collections. Ventricles are normal in size and shape. Brain: No midline shift. No intracranial bleeds or masses. No abnormal intracranial enhancement. There is cerebral volume loss for age. There is periventricular white matter chronic small vessel is chemic change. The brainstem appears normal. Diffusion-weighted images demonstrate no acute ischemi c insults. No chronic ischemic insults. Normal intravascular flow voids are present. Skull and face: Calvarial marrow is normal in signal. Orbits appear normal. Sinuses: Left maxillary sinus mucosal thickening with debris IMPRESSION: Mild atrophy and white matter chronic ischemic change without acute hemorrhage, infarct or mass lesio n. No metastatic disease. Left maxillary mucosal sinus disease Reviewed by: Randolph Mooney MD on 07/06/2024 4:38 PM [facility] Approved by: Randolph Mooney MD on 07/06/2024 4:38 PM [facility] Station ID: [id number]
[2024-07-06] MEDS: POTASSIUM CHLORIDE 20 MEQ/15 ML UDC PO ONE (18:53)
[2024-07-06] MEDS ORDERED: VANCOMYCIN INJ 500 MG in SODIUM CHLORIDE 0.9% MINIBAG 100 ML IV SCH (21:00)
[2024-07-06] MEDS: CEFEPIME 1 GM in SODIUM CHLORIDE 0.9% MINIBAG 100 ML IV SCH (21:12)
[2024-07-06] MEDS: LACTATED RINGERS 1,000 ML IV SCH (21:25)
[2024-07-06] MEDS: PATIENT OWN MED PO SCH (21:26)
[2024-07-07 07:00] LABS: MAGNESIUM 1.8 mg/dL (1.7-2.3)
[2024-07-07 07:32] LABS: BASOPHILS % (AUTO) 1.1 %; CALCIUM 8.3 mg/dL (8.5-10.3); CREATININE 0.7 mg/dL (0.6-1.3); EOSINOPHILS % (AUTO) 1.1 %; HCT - HEMATOCRIT 32.9 % (37.0-47.0); HGB - HEMOGLOBIN 10.2 g/dL (12.0-16.0); LYMPHOCYTES # (AUTO) 0.9 10^3/uL (1.5-3.5); LYMPHOCYTES % (AUTO) 32.6 %; MEAN CORPUSCULAR HEMOGLOBIN 30.6 pg (27.0-31.0); MEAN CORPUSCULAR VOLUME 98.8 fL (81.0-99.0); MEAN PLATELET VOLUME 11.6 fL (7.9-10.8); MONOCYTES # (AUTO) 0.7 10^3/uL (0.0-1.0); MONOCYTES % (AUTO) 24.5 %; NEUTROPHILS # (AUTO) 1.2 10^3/uL (1.5-6.6); NEUTROPHILS % (AUTO) 40.7 %; PLT - PLATELET COUNT 103 10^3/uL (130-450); POTASSIUM 4.1 mmol/L (3.5-4.5); RED BLOOD COUNT 3.33 10^6/uL (4.20-5.40); RED CELL DISTRIBUTION WIDTH 14.5 % (12.0-15.0); WHITE BLOOD COUNT 2.8 x10^3/uL (4.8-10.8)
[2024-07-07 07:33] LABS: SLIDE REVIEW? Indicated
[2024-07-07 08:00] LABS: PLATELET ESTIMATE, MANUAL DECREASED (<130,000) (NORMAL); PLATELET MORPHOLOGY NORMAL APPEARANCE (NORMAL)
[2024-07-07 08:01] LABS: RBC MORPHOLOGY (MULTIPLE) NORMAL APPEARANCE (NORMAL); WBC MORPHOLOGY (MULTIPLE) NORMAL APPEARANCE (NORMAL)
--- NOTE | 2024-07-07 11:09 | PROVIDER PROGRESS NOTE ---
Subjective Subjective Subjective: Patient is a 69-year-old female with a history of breast cancer with extensive metastasis to the bone and liver who presented with dyspnea. She was recently admitted for septic arthritis, and completed 2 weeks of IV antibiotics, followed by a week of oral antibiotics. This time, she returns, because she has had progressive shortness of breath. This is associated with some chest tightness. She has no chest pressure. She endorses of a cough as well with no sputum production. She is having alternating fevers and chills. She also has some dizziness and lightheadedness. We reviewed the results of the CT scan of her chest together. I shared my worries that I am concerned that the nodules may be progression of her metastatic disease. I also spoke with Mile, oncology [employer] here. They already have an appointment set up with her for 07/10, with palliative care. Current Medications Current Medications Current Medications: Current Medications Generic Name Dose Route Start Last Admin Trade Name Freq PRN Reason Stop Dose Admin Acetaminophen 650 mg 07/05/24 21:30 07/06/24 02:00 Acetaminophen 325 Mg Tablet PO 650 mg Q4HR PRN Administration Pain 1 to 4, or Fever Apixaban 2.5 mg 07/05/24 21:30 07/07/24 09:02 Apixaban 2.5 Mg Tablet PO 2.5 mg BID JAY Administration Carvedilol 3.125 mg 07/05/24 21:30 07/07/24 09:02 Carvedilol 3.125 Mg Tablet PO 3.125 mg BID JAY Administration Celecoxib 100 mg 07/05/24 23:00 07/07/24 09:02 Celecoxib 100 Mg Capsule PO 100 mg BID JAY Administration Clotrimazole 1 applic 07/05/24 21:30 07/07/24 09:03 Clotrimazole/Betamethasone 15 Gm Tube TOP 1 applic BID JAY Administration Guaifenesin 1,200 mg 07/05/24 21:30 07/07/24 09:02 Guaifenesin 600 Mg Tablet PO 1,200 mg BID JAY Administration Hydromorphone HCl 2 - 4 mg 07/06/24 16:30 07/07/24 10:58 Hydromorphone 2 Mg Tablet PO 2 mg Q3H PRN Administration pain Cefepime HCl 1 gm/ Sodium 100 mls @ 200 mls/hr 07/06/24 21:00 07/06/24 22:22 Chloride IV Infused Q24H JAY Infusion Lactated Ringer's 1,000 mls @ 75 mls/hr 07/06/24 19:00 07/07/24 10:58 Lr IV 75 mls/hr .[id number] JAY Administration Levalbuterol HCl 1.25 mg 07/06/24 10:03 Levalbuterol 1.25 Mg/3 Ml Neb INH Q4H PRN Shortness of Air/Wheezing Levothyroxine Sodium 25 mcg 07/06/24 07:00 07/07/24 06:16 Levothyroxine 25 Mcg Tablet PO 25 mcg QDAC JAY Administration Loperamide HCl 2 mg 07/05/24 21:30 Loperamide 2 Mg Capsule PO 07/12/24 21:29 ONCE PRN Diarrhea Magnesium Oxide 400 mg 07/06/24 08:00 07/07/24 09:02 Magnesium Oxide 400 Mg Tablet PO 400 mg DAILYWM JAY Administration Multivitamins/Minerals 1 tab 07/06/24 12:00 07/07/24 09:02 Multivitamin W/Minerals Tablet PO 1 tab DAILYWM JAY Administration Olanzapine 2.5 mg 07/05/24 21:30 07/06/24 21:11 Olanzapine Odt 5 Mg Tablet TL 2.5 mg QPM JAY Administration Ondansetron HCl 8 mg 07/05/24 22:00 07/07/24 06:03 Ondansetron Odt 4 Mg Tablet PO Not Given TID JAY Tamoxifen 20 Mg 1 each 07/06/24 09:00 07/07/24 09:03 Tablet PO 1 each DAILY JAY Administration Rosuvastatin 20mg 1 each 07/07/24 21:00 PO NIGHTLY JAY Pregabalin 100 mg 07/05/24 23:00 07/07/24 06:03 Pregabalin 100 Mg Capsule PO Not Given TID JAY Pregabalin 50 mg 07/05/24 23:00 07/07/24 06:03 Pregabalin 25 Mg Capsule PO Not Given TID JAY Prochlorperazine Maleate 10 mg 07/05/24 21:30 Prochlorperazine 5 Mg Tablet PO Q6H PRN nausea and vomiting Sertraline HCl 150 mg 07/06/24 09:00 07/07/24 09:02 Sertraline 50 Mg Tablet PO 150 mg DAILY JAY Administration Sodium Chloride 10 ml 07/05/24 21:30 Sodium Chloride Flush 0.9% 10 Ml Syringe IVP PRN PRN NEEDED PER PROVIDER ORDERS Sodium Chloride 10 ml 07/06/24 01:00 07/07/24 09:03 Sodium Chloride Flush 0.9% 10 Ml Syringe IVP Not Given 0100,0900,1700 [facility] Objective Vital Signs/Intake & Output Reviewed Vital Signs: Yes Vital Signs: Vital Signs x48h Pulse Ox 07/07/24 09:45 95 Intake & Output: Intake & Output 07/04/24 07/05/24 07/06/24 07/07/24 23:59 23:59 23:59 23:59 Intake Total 100 / 100 4540 / 4540 1830 / 1830 Balance 100 / 100 4540 / 4540 1829 / 1830 Weight (kg) 89 kg Objective General Appearance: positive No acute distress, Alert and Anxious Eyes Bilateral: positive Normal inspection, PERRL and EOMI ENT: positive ENT inspection nml, Pharynx nml and No signs of dehydration Neck: positive Nml inspection, Thyroid nml and No JVD Respiratory: positive Chest non-tender, No respiratory distress, Breath sounds nml and Rales (mild bibasilar crackles); negative Wheezes or Rhonchi Cardiovascular: positive Regular rate & rhythm and No murmur; negative Tachycardia, Bradycardia, Systolic murmur or Diastolic murmur Abdomen: positive Non-tender and No distention; negative Guarding, Rebound, Hepatomegaly, Splenomegaly or Mass Back: positive Nml inspection; negative CVA tenderness (R) or CVA tenderness (L) Skin: positive Color nml, No rash, Warm and Dry Extremities: positive Nml appearance, No pedal edema and Other (Right hand wrapped, not unwrapped. Good sensation in all fingertips. Is able to move all fingertips slightly, improved from yesterday.) Neurologic/Psychiatric: positive Oriented x3 and Depressed mood/affect Lab Results 07/07/24 06:00 07/07/24 06:00 Other Labs: Lab Results x24hrs 07/07/24 07/06/24 Range/Units 06:00 11:00 WBC 2.8 L (4.8-10.8) x10^3/uL RBC 3.33 L (4.20-5.40) 10^6/uL Hgb 10.2 L (12.0-16.0) g/dL Hct 32.9 L (37.0-47.0) % MCV 98.8 (81.0-99.0) fL MCH 30.6 (27.0-31.0) pg MCHC 31.0 L (32.0-36.0) g/dL RDW 14.5 (12.0-15.0) % Plt Count 103 L (130-450) 10^3/uL MPV 11.6 H (7.9-10.8) fL Neut # (Auto) 1.2 L (1.5-6.6) 10^3/uL Lymph # (Auto) 0.9 L (1.5-3.5) 10^3/uL [place] # (Auto) 0.7 (0.0-1.0) 10^3/uL Eos # (Auto) 0.0 (0.0-0.7) 10^3/uL Baso # (Auto) 0.0 (0.0-0.1) 10^3/uL Absolute Nucleated RBC 0.00 x10^3/uL Nucleated RBC % 0.0 /100WBC Manual Slide Review Indicated WBC Morphology NORMAL APPEARANCE (NORMAL) Platelet Estimate DECREASED (<130,000) (NORMAL) Platelet Morphology NORMAL APPEARANCE (NORMAL) RBC Morph Micro Appear NORMAL APPEARANCE (NORMAL) Sodium 141 (135-145) mmol/L Potassium 4.1 (3.5-4.5) mmol/L Chloride 110 (101-111) mmol/L Carbon Dioxide 29 (21-32) mmol/L Anion Gap 2.0 L (6-13) BUN 22 H (6-20) mg/dL Creatinine 0.7 (0.6-1.3) mg/dL Estimated GFR (MDRD) 83 L (>89) Glucose 79 (74-104) mg/dL Calcium 8.3 L (8.5-10.3) mg/dL Magnesium 1.8 (1.7-2.3) mg/dL Nasal Screen MRSA (PCR) NEGATIVE (NEGATIVE) Diagnostic Imaging Diagnostic Imaging Results: positive Final report reviewed Assessment/Plan Problem List (1) Acute hypoxic respiratory failure: Impression: Resolved. We are glad you are feeling better, thank you for letting us take care of you patient was requiring 1 to 2 L to maintain saturations greater than 92%. Her lungs sound relatively clear. There is no active wheezing. We did try DuoNebs, and 1 dose of steroids yesterday, with minimal change; this was stopped. CTA shows focal lingular atelectasis and bronchiectasis, mild centrilobular nodules, more significant in the right upper lobes. I compared this with a CTA done 05/09/2024, which also showed what was described as clustered groundglass opacities in the posterior portion of the right upper lobe. I also reviewed his CT done 11/01, which made no mention of any of the above. This does appear to be a relatively new development. Quantiferon ordered. Patient not producing any sputum, cannot complete AFB sputum samples. Unclear if it is infectious etiology versus progression of her metastatic disease. I did review the images with [facility] [employer]. They will follow up with her on 07/10 in the outpatient setting. Will treat for possible infectious etiology, i.e. an organized pneumonia with cefepime, today is day 3 of antibiotics. MRSA swab was negative, so vancomycin was discontinued. Today, she is feeling better, less short of breath. Can likely transition to oral antibiotics tomorrow and discharge home with close follow-up with oncology; she already has an appointment set up on 07/10 as stated above. May need follow up CT vs. biopsy in the outpatient setting. (2) Dizziness: Impression: Patient had profound dizziness on admission. She described it as lightheadedness, but occasionally did have room spinning sensation, which was worse with head movements. With IV fluid resuscitation, it has gotten better. We did complete an MRI of the brain to rule out metastasis, which was negative. (3) Community acquired pneumonia: Impression: MRSA swab negative. Vancomycin discontinued. Continue cefepime at this time. Transition to oral antibiotics 07/08. Qualifiers: Laterality: unspecified laterality Qualified Code(s): J18.9 - Pneumonia, unspecified organism (4) [place] (acute kidney injury): Impression: Resolved. Likely due to decreased P.O. intake. Continue IVF rehydration for today. Continue to trend. (5) Paroxysmal atrial flutter: Impression: Continue Coreg, Eliquis. (6) Type 2 diabetes mellitus with peripheral neuropathy: Impression: Patient states that she is prediabetic, and just on metformin. A1c of 6.1%. Hold off on low-dose sliding scale at this time. (7) Pulmonary embolus, left: Impression: Continue Eliquis. (8) Hypothyroidism: Impression: Continue levothyroxine. Qualifiers: Hypothyroidism type: unspecified Qualified Code(s): E03.9 - Hypothyroidism, unspecified (9) Major depressive disorder, recurrent episode, moderate: Impression: Continue sertraline. (10) Adenocarcinoma of left breast: Impression: Invasive ductal carcinoma, stage IV, metastasis to liver, bones. Follows with Dr. Resendiz. Currently undergoing chemotherapy. Patient knows she is terminal. We did have a long discussion about her goals of care. She would like to be full code at this time. Continue p.o. Dilaudid as needed.
[2024-07-07 16:12] VITALS: TEMP 97.9
[2024-07-07] MEDS: ROSUVASTATIN 20MG PO SCH (20:34)
[2024-07-08 04:50] LABS: BASOPHILS % (AUTO) 1.2 %; EOSINOPHILS % (AUTO) 4.9 %; HCT - HEMATOCRIT 34.2 % (37.0-47.0); HGB - HEMOGLOBIN 10.5 g/dL (12.0-16.0); LYMPHOCYTES % (AUTO) 43.6 %; MEAN CORPUSCULAR HEMOGLOBIN 30.3 pg (27.0-31.0); MEAN CORPUSCULAR HGB CONC 30.7 g/dL (32.0-36.0); MEAN CORPUSCULAR VOLUME 98.8 fL (81.0-99.0); MONOCYTES % (AUTO) 21.8 %; NEUTROPHILS % (AUTO) 28.1 %; PLT - PLATELET COUNT 97 10^3/uL (130-450); RED BLOOD COUNT 3.46 10^6/uL (4.20-5.40); RED CELL DISTRIBUTION WIDTH 14.6 % (12.0-15.0); WHITE BLOOD COUNT 2.4 x10^3/uL (4.8-10.8)
[2024-07-08 05:06] LABS: MAGNESIUM 1.5 mg/dL (1.7-2.3)
[2024-07-08 05:09] LABS: ABNORMAL LYMPHS % (MANUAL) 0 %; BAND NEUTROPHILS % (MANUAL) 0 %
[2024-07-08 05:11] LABS: CALCIUM 8.4 mg/dL (8.5-10.3); CREATININE 0.6 mg/dL (0.6-1.3); POTASSIUM 4.3 mmol/L (3.5-4.5)
[2024-07-08 05:19] LABS: EOSINOPHILS # (MANUAL) 0.2 10^3/uL (0-0.7); LYMPHOCYTES # (MANUAL) 1.1 10^3/uL (1.5-3.5); LYMPHOCYTES % (MANUAL) 47 %; MONOCYTES # (MANUAL) 0.3 10^3/uL (0.0-1.0); MYELOCYTES % (MANUAL) 1 %; NEUTROPHILS # (MANUAL) 0.8 10^3/uL (1.5-6.6)
[2024-07-08 05:21] LABS: DIFFERENTIAL COMMENT MANUAL DIFFERENTIAL; PLATELET ESTIMATE, MANUAL DECREASED (<130,000) (NORMAL); PLATELET MORPHOLOGY NORMAL APPEARANCE (NORMAL); RBC MORPHOLOGY (MULTIPLE) NORMAL APPEARANCE (NORMAL); WBC MORPHOLOGY (MULTIPLE) NORMAL APPEARANCE (NORMAL)
--- NOTE | 2024-07-08 09:00 | Discharge Summary ---
"Discharge Summary Admit Date: 07/05/24 Discharge Date: 07/08/24 Discharging Provider: Latoya Branham MD Primary Care Provider: MALIA Mary Code Status: Attempt Resuscitation DIAGNOSES Discharge Diagnoses with Status of Each Condition: 1. Acute hypoxic respiratory failure 2. Presumed pneumonia 3. Severe dizziness 4. Bradycardia with carvedilol 5. Acute kidney injury resolved 6. Paroxysmal atrial flutter 7. Type 2 diabetes mellitus with peripheral neuropathy 8. History of pulmonary emboli July 2023 ([facility]) 9. Hypothyroidism 10. Major depressive disorder, recurrent, moderate 11. Adenocarcinoma of the left breast, stage IV with metastatic disease to the liver and possibly lungs HPI History of Present Illness: 69-year-old female with history of prior breast cancer which has metastasized to her liver actively undergoing treatment who had a recent hospital admission for septic arthritis presents to the emergency department with fever, chills, dyspnea, chest pressure on deep inspiration. In the ER, CTA chest was performed which showed likely infectious versus inflammatory pulmonary nodules. She was on room air at rest, but with any kind of activity she desaturated significantly and became dizzy. Hospitalist was contacted for observation for acute hypoxic respiratory failure secondary to pneumonia. She did not have pulmonary emboli. She does have a history of left pulmonary emboli when she was hospitalized at [facility] in July 2023. She is currently on Bactrim to complete therapy for the septic joint arthritis. CONSULTS | PROCEDURES Procedures: 1. Chest x-ray has a right portacatheter in place. No dense airspace disease. Normal heart size. No pleural effusions. 2. Chest/thorax CT angiogram. Focal lingular atelectasis and bronchiectasis again seen when compared to May 09, 2024 CT. Dependent atelectasis is also present. Mild centrilobular nodules present. More significant in the right upper lobe and progressive from before. Cholelithiasis. Sclerotic C7 vertebral body. 3. Brain MRI done for dizziness and worry about metastatic disease shows mild atrophy and white matter chronic ischemic changes without acute hemorrhage. No infarct or mass lesions. No metastatic disease. Left maxillary mucosal sinus disease. 4. Blood cultures from July 05 negative after 2 days HOSPITAL COURSE Hospital Course: Differential diagnosis for her acute respiratory failure did include pneumonia, metastatic disease, or heart disease. Such as congestive heart failure. But she has had 2 echoes in the last year and both of them have been acceptable. Repeat CT was done for recurrence of pulmonary emboli even though she is on Eliquis and none was found. However she has subtle progression of nodular disease in the lungs that may or may not be progression of her breast cancer. This was discussed with the patient and her films were reviewed with her. She responded to empiric antibiotic therapy and will not be sent home on 5 more days of Augmentin. I did initially wish to send her home on cefdinir but her insurance pharmacy plan does not pay for that. I am also asking her to go home on probiotics. Her septic joint arthritis was June 27 and completion of 2 weeks of antibiotic therapy will be July 11. I am stopping her Bactrim that she was discharged on. She had initially required oxygen. She has been successfully weaned off oxygen and has been on room air for a day. She is ambulating in room, eating some of her food, and able to feed herself. She is worried about her low pulse rate in the face of the use of carvedilol. She used to be on losartan for hypertension as well. But that was recently discontinued. Her blood pressure was t mildly elevated on 2 occasions in the 150s and 160s systolic. Pulse was in the 50s. She wishes to discuss the use of carvedilol for hypertension with her PCP but I am letting her know that carvedilol is most likely for her history of paroxysmal atrial flutter. It would be a judgment call on the part of her primary care provider, in discussion with her, if she needs losartan. For the most part her blood pressures was in the 130s over 60s. She did have a quantiferon gold drawn while she was here. That result is pending. She did share with me that she is already had a discussion with her oncologist that her survivability, from the time of diagnosis, was 3 to 5 years posttreatment. She feels that she has already had 2 of the 5 years. She is still a full code. I would recommend oncology discuss advance care planning with regards to changing CODE STATUS. She states that she most likely she will be requiring caregivers toward the end of her life because of her disease. Her plan is to be in a fci or possibly stay at home with caregivers if she can get Hospice. She does not know which of these options she will use yet. She laments that she has not been able to garden. That is one of her most favorite activities. But with her illness and not feeling well, spring has already sprung and there is a lot of work that has not been done in her yard. She is discharged in stable condition. She currently still has an Antonio wrap around her right wrist from her previous septic arthritis surgery. Sutures are removed in the next couple of days. She is anxious to be discharged because she plans on getting chemotherapy on July 10. She is alert, and is oriented to person, place, time and situation. No acute distress. Sitting up at the side of the bed eating breakfast. No respiratory distress. Lungs are clear, regular rate and rhythm. Abdomen soft, nontender. Mild onychomycosis of her toenails but no edema. She was able to walk 100 feet and is noticeably fatigued. But she did pass her oxygen desaturation test and does not require oxygen at discharge. Greater than 30 minutes was spent coordinating discharge This document was made in part using voice recognition software. While efforts are made to proofread this document, sound alike and grammatical errors may occur. ALLERGIES Allergies Allergy/AdvReac Type Severity Reaction Status Date / Time adhesive Allergy Severe Rash Verified 07/05/24 15:24 anastrozole Allergy Dizziness Verified 07/05/24 15:24 hydroxyzine Allergy Itching Verified 07/05/24 15:24 clindamycin AdvReac Severe Nausea Verified 07/05/24 15:24 meclizine AdvReac Severe Dizziness Verified 07/05/24 15:24 silver (From Tegaderm AG AdvReac Severe Rash Verified 07/05/24 15:24 Mesh) fentanyl AdvReac Intermediate Tachycardia Verified 07/05/24 15:24 codeine AdvReac Nausea Verified 07/05/24 15:24 gabapentin AdvReac Dizziness Verified 07/05/24 15:24 lorazepam AdvReac Dizziness Verified 07/05/24 15:24 MEDICATIONS Ambulatory Orders Medication Instructions Recorded Confirmed dulaglutide 0.75 mg/0.5 mL 0.75 mg SQ UD 11/10/21 07/11/24 subcutaneous pen injector (Trulicity) Permanent Disabled Placard 02/03/24 07/11/24 ondansetron 8 mg disintegrating 8 mg PO TID 02/03/24 07/11/24 tablet sertraline 100 mg tablet 100 mg PO DAILY 02/03/24 07/11/24 tamoxifen 20 mg tablet 20 mg PO QDAY 02/03/24 07/11/24 levothyroxine 25 mcg tablet See Rx Instructions .Route 03/06/24 07/11/24 .COMPLEX #90 tabs rosuvastatin 20 mg tablet See Rx Instructions .Route 03/06/24 07/11/24 .COMPLEX #90 tabs sertraline 50 mg tablet 50 mg PO QDAY #90 tabs 03/09/24 07/11/24 metformin 500 mg tablet 500 mg PO BID #180 tabs 04/13/24 07/11/24 apixaban 2.5 mg tablet (Eliquis) 2.5 mg PO BID #60 tabs 04/20/24 07/11/24 pregabalin 150 mg capsule 150 mg PO TID 05/09/24 07/11/24 celecoxib 100 mg capsule 100 mg PO BID #180 caps 05/16/24 07/11/24 carvedilol 3.125 mg tablet 3.125 mg PO BID 05/17/24 07/11/24 magnesium oxide 500 mg capsule 500 mg PO QDAY low magnesium #6 05/24/24 07/11/24 caps acetaminophen 500 mg tablet 1,000 mg (2 x 500 mg) PO Q6HR PRN 07/03/24 07/11/24 Pain 1-4 #90 tabs clotrimazole-betamethasone 1 1 applic topical BID #45 grams 07/03/24 07/11/24 %-0.05 % topical cream amoxicillin 500 mg-potassium 1 tab PO BID #10 tabs 07/08/24 07/11/24 clavulanate 125 mg tablet (Augmentin) diphenoxylate-atropine 2.5 1 tab PO QID PRN diarrhea #30 tabs 07/10/24 07/10/24 mg-0.025 mg tablet hydromorphone 2 mg tablet 2 mg PO Q4H PAIN #100 tabs 07/10/24 07/10/24 olanzapine 2.5 mg tablet (Zyprexa) 2.5 mg PO QPM #30 tabs 07/10/24 07/10/24 dexamethasone 2 mg tablet 2 mg PO QDAY #30 tabs 07/11/24 07/11/24 LABS 07/08/24 04:35 07/08/24 04:35 Discharge Plan Discharge Patient Disposition: 01 Home, Self Care Condition: Stable Medically Cleared Date:: 07/08/24 Prescriptions: New amoxicillin-pot clavulanate [Augmentin] 500-125 mg tablet 1 tab PO BID Qty: 10 0RF Continued levothyroxine 25 mcg tablet See Rx Instructions .ROUTE .COMPLEX Qty: 90 3RF Dose Instruction: TAKE ONE TABLET BY MOUTH ONE TIME DAILY Rx Instructions: TAKE ONE TABLET BY MOUTH ONE TIME DAILY rosuvastatin 20 mg tablet See Rx Instructions .ROUTE .COMPLEX Qty: 90 3RF Dose Instruction: TAKE ONE TABLET BY MOUTH ONE TIME DAILY Rx Instructions: TAKE ONE TABLET BY MOUTH ONE TIME DAILY sertraline 50 mg tablet 50 mg PO QDAY Qty: 90 3RF Rx Instructions: TAKE WITH 100 MG TABLET FOR A TOTAL OF 150 MG metformin 500 mg tablet 500 mg PO BID Qty: 180 3RF Rx Instructions: TAKE ONE TABLET BY MOUTH TWICE DAILY Eliquis 2.5 mg tablet 2.5 mg PO BID Qty: 60 2RF sertraline 100 mg tablet 100 mg PO DAILY Rx Instructions: TAKE ONE AND A HALF TABLETS ONE TIME DAILY (TOTAL OF 150MG PER DAY) Trulicity 0.75 MG/0.5 ML pen injector 0.75 mg SQ UD Rx Instructions: Inject 0.75 mg SQ once weekly acetaminophen 500 mg Tablet 1,000 mg PO Q6HR PRN (Reason: Pain 1-4) Qty: 90 0RF clotrimazole-betamethasone 1-0.05 % Cream 1 applic topical BID Qty: 45 0RF (DME) Permanent Disabled Placard Misc See Rx Instructions .Route Rx Instructions: USE ONE DEVICE DIRECTED. DISPLAY IN WINDOW OF VEHCLE. LENGTH OF NEED: 99 MONTHS. ICD-10 m70.61, m54.5 ondansetron 8 mg tablet,disintegrating 8 mg PO TID Rx Instructions: TAKE ONE TABLET ON TONGUE THREE TIMES A DAY NEEDED FOR NAUSEA tamoxifen 20 mg tablet 20 mg PO QDAY Rx Instructions: TAKE ONE TABLET BY MOUTH ONCE A DAY pregabalin 150 mg capsule 150 mg PO TID Rx Instructions: Tapering at this time celecoxib 100 mg capsule 100 mg PO BID Qty: 180 3RF Rx Instructions: TAKE ONE CAPSULE BY MOUTH TWICE A DAY NEEDED FOR KNEE ARTHRITIS PAIN carvedilol 3.125 mg tablet 3.125 mg PO BID magnesium oxide 500 mg capsule 500 mg PO QDAY MDD 1000 mg Qty: 6 1RF Discontinued sulfamethoxazole-trimethoprim [Bactrim DS] 800-160 mg tablet 1 tab PO BID Qty: 14 0RF No Action diphenoxylate-atropine 2.5-0.025 mg tablet 1 tab PO QID PRN (Reason: diarrhea) Qty: 30 0RF Rx Instructions: 1 tab orally four times daily; TAKE TWO TABLETS BY MOUTH FOUR TIMES A DAY NEEDED FOR DIARRHEA hydromorphone 2 mg tablet 2 mg PO Q4H MDD 10/02 Qty: 100 0RF olanzapine [Zyprexa] 2.5 mg tablet 2.5 mg PO QPM Qty: 30 3RF dexamethasone 2 mg tablet 2 mg PO QDAY Qty: 30 0RF Rx Instructions: Take as directed with chemo for three days Activity Restrictions: Activity as Tolerated Diet: Regular Health Concerns: You had recently been admitted to the hospital for a severe joint infection. And you had been discharged a few days and were on Bactrim when you returned with fever, chills, shortness of breath, and chest pain on deep inspiration. We were worried about blood clots to the lungs (since you have a history of a blood clot in July 2023) but the CAT scan of your chest did not show emboli. However you did have new inflammatory changes. Some of them are nodular. This could be a pneumonia versus spread of your previous history of breast cancer that has already gone to your liver. You were placed on antibiotics and you have responded. You were less short of breath, and no longer have fever or chills. We feel you are stable to go home. You are not requiring any oxygen. You are ambulating without any assistance. And you are eating some of your food. You shared with me that your plan is to continue palliative chemotherapy with Dr. Resendiz. You acknowledged that you have had the conversation with him that your survival is 3 to 5 years and you have already had 2 years pass since that conversation. Your next chemotherapy is on Tuesday. You will follow-up with the [facility] [place] for that appointment. For this admission, we would ask you to complete 5 more days of antibiotic therapy with Augmentin. We had initially chosen a drug called cefdinir but your insurance company does not pay for that. While you are on antibiotic please consider taking an [id number] probiotic to prevent diarrhea from antibiotics. Please see your primary care provider in follow-up in the next 2 weeks for continuity of care. Dr. Marie has recently retired. And you are still in that clinic we do not have a confirmed primary care provider. We are using the name of Kierra Cortes to make sure that that your medical records gets transferred appropriately. I am stopping your Bactrim. That was the antibiotic you were discharged on from the last admission. For this admission we are more focused on a lung infection and that we will be Augmentin. It should also cover any joint issues you may have. You shared with me that your pulse is on the low side. It was in the 50s. You are going to follow-up with your primary care provider since your pulse is in the 50s and you feel that is too low but you at the same time you still need treatment for high blood pressure. While here your blood pressure was primarily normal. 132/69, 113/53. Twice it was elevated at 154/79 or 165/64. It appears that the overall average is a normal blood pressure. What you would like to discussed the use of carvedilol with your primary care provider and we will do that at your next appointment. However, you are on carvedilol for your history of atrial fibrillation not for hypertension. Print Language: Kinyarwanda Patient Instructions: Amoxicillin Clavulanic Acid tablets, Resuscitation Decide Stand Alone Forms: PCP List Follow-up Care: Kierra Cortes PA-C [Provider Admit Priv/Credential] -"
[2024-07-08 09:21] VITALS: BP 117/73; O2SAT 94
[2024-07-08] MEDS: SODIUM CHLORIDE FLUSH 0.9% 10 ML SYRINGE IVP PRN (12:33)
== END 2024-07-08 13:08 | disposition home or self-care (01) | DRG 189 ==
LOC: MS2 15:20 → ED 15:20 → MS2 21:34
PROVIDERS: ADMIT Nurse Practitioner Acute Care; ATTEND Internal Medicine